=== PATIENT | female | born 1935 | race Caucasian/White ===

== ENCOUNTER → 2017-10-03 14:24 | Outpatient (CLI) | payer MEDICARE, OTHER, SELFPAY ==
[2017-10-03 16:12] LABS: Absolute Lymphocyte Count 1.16 X10^3/ul (0.83-4.51); Absolute Neutrophil Count 3.9 X10^3/uL (2.0-7.7); Basophil# 0.07 X10^3/uL; Basophil% 1.2 % (0-1); Eosinophil# 0.34 X10^3/uL; Eosinophils% 5.6 % (0-5); Hematocrit 42.1 % (37-47); Hemoglobin 13.7 g/dl (12.0-15.0); Lymphocyte # 1.16 X10^3/ul (4.0); Lymphocyte % 19.1 % (19-41); Mean Corp Hgb Conc 32.5 g/gl (32-36); Mean Corpuscular Hgb 31.3 pg (27.0-32.0); Mean Corpuscular Volume 96.1 fL (81-99); Monocyte# 0.58 X10^3/uL; Monocyte% 9.6 % (0-10); Neutrophil # 3.89 X10^3/uL (2.7-7.7); Neutrophil % 64.2 % (47-70); Platelet Count 166 K/mm3 (150-450); RBC Distribution Width CV 12.7 % (11.6-14.6); RBC Distribution Width SD 43.8 fl (35.1-43.9); Red Blood Count 4.38 M/mm3 (4.2-5.4); White Blood Count 6.1 K/mm3 (4.4-11.0)
[2017-10-03 16:18] LABS: POSITIVE COUNT NO; POSITIVE DIFFERENTIAL NO; POSITIVE MORPHOLOGY NO
[2017-10-03 16:37] LABS: Vitamin D,25 Hydroxy 34.9 ng/mL (19.95-100.01)
[2017-10-03 16:38] LABS: AST(SGOT) 24 U/L (15-37); Alanine Aminotransfer ALT/SGPT 22 U/L (13-56); Albumin, Serum 3.7 g/dL (3.2-5.0); Alkaline Phosphatase 54 U/L (45-117); Anion Gap 7 (5-15); BUN 23 mg/dL (7-18); BUN/Creat Ratio 26.3 RATIO (10-20); Calcium,Total 9.2 mg/dL (8.5-10.1); Chloride 103 mmol/L (98-107); Creatinine, Serum 0.87 mg/dL (0.55-1.02); EST Glomerular Filtration Rate 66 mL/min (>60); Est Glom Filt Rate - Afr Amer 80 mL/min (>60); Globulin 3.8 g/dL (2.2-4.2); Glucose 85 mg/dL (70-110); Protein, Total 7.5 g/dL (6.4-8.2); Sodium Level 141 mmol/L (136-145); Thyroid Stim Hormone (TSH) 2.36 uIU/mL (0.358-3.74)
== END ==
PROVIDERS: Family Provider Family Medicine Geriatric Medicine; PCP Family Medicine Geriatric Medicine; Visit Provider Family Medicine Geriatric Medicine
DX: I10 Essential (primary) hypertension (principal); E55.9 Vitamin D deficiency, unspecified
CPT/HCPCS: 36415; 80053; 82306; 84443; 85025

== ENCOUNTER 2017-10-09 12:25 | Emergency (ER) | payer MEDICARE, OTHER, SELFPAY ==
[2017-10-09 12:27] VITALS: BP 137/79; PULSE 72; RESP 16; TEMP 37.2; O2SAT 99; BMI 21.2
--- NOTE | 2017-10-09 12:43 | ED.DCSUM_ITS ---
- ER Visit Summary Date of Service: 10/09/17 Chief Complaint: Facial swelling History of Present Illness: The patient is a 82 F who has been using bacitracin on her face for a small lesion on the side of her nose. Patient noted redness and increased swelling to the area just beneath her eyes. This started 3 days ago. Patient denies any shortness of breath or wheezing. She denies any tongue edema or throat tightness. Physical Examination: Vital signs are unremarkable. Head neck examination was periorbital erythema with minimal edema. There is no conjunctival injection. There is no eyelid edema. There is a healing wound on the left lateral portion of the nasal bridge. There is no sign of cellulitis. No tongue edema is noted. Heart is regular rate and rhythm. Lungs are clear with good air movement. Test Results: [] Emergency Department Course and Treatment: Patient will be given a 4 day course of oral prednisone. She is instructed to use neutral soap and water to clean her skin. She is to stop bacitracin. Treatment Plan: [] Disposition: Discharge Impression: Local skin reaction to bacitracin This note was generated with [employer] dictation software. It may contain incorrect words, spelling, and punctuation that were not noted in review of the chart prior to signing ED Disposition - Plan for ED Patient: Chief Complaint: Allergic Reaction Referrals: Rod Ochoa Chi, MD [Primary Care Provider] -
--- NOTE | 2017-10-09 12:43 | ED.DEP ---
ED Disposition - Plan for ED Patient: Disposition: Home or Assisted Living Chief Complaint: Allergic Reaction Instructions: ED Allergic Reaction Local Other Prescriptions: Prednisone [Deltasone] 40 mg PO DAILY #6 tablet Referrals: Rod Ochoa Chi, MD [Primary Care Provider] - 1 Week if not improving
[2017-10-09 12:47] VITALS: BP 128/80; PULSE 80; RESP 14; O2SAT 98
== END 2017-10-09 13:08 | disposition home or self-care (01) ==
LOC: ED 12:55
PROVIDERS: Emergency Provider Emergency Medicine; Family Provider Family Medicine Geriatric Medicine; PCP Family Medicine Geriatric Medicine
DX: R22.0 Localized swelling, mass and lump, head (principal); T49.0X5A Adverse effect of local antifungal, anti-infective and anti-inflammatory drugs, initial encounter; J45.909 Unspecified asthma, uncomplicated; I10 Essential (primary) hypertension; E78.00 Pure hypercholesterolemia, unspecified; I48.91 Unspecified atrial fibrillation; Z79.51 Long term (current) use of inhaled steroids; Z79.899 Other long term (current) drug therapy; Y92.89 Other specified places as the place of occurrence of the external cause
CPT/HCPCS: 99283

== ENCOUNTER → 2017-11-01 13:52 | Outpatient (CLI) | payer MEDICARE, OTHER, SELFPAY ==
[2017-10-09 12:27] VITALS: BMI 21.2
[2017-10-09 12:47] VITALS: BP 128/80
--- NOTE | 2017-11-01 13:54 | HPBI_ITS ---
MAMMOGRAPHY - BILATERAL SCREENING REASON FOR EXAM: Female, 82 years old. Routine annual screening examination. PERTINENT HISTORY: Grandmother with breast cancer. TECHNIQUE: Digital bilateral breast erik (3D mammographic acquisition) in the CC and MLO projections. 2-D mediolateral oblique (MLO) and craniocaudad (CC) views of both breasts were obtained. CAD: Full Field Digital Mammography with Computer Added Detection was performed. COMPARISON: Comparison is made with prior examination dated October 01, 2016 and September 29, 2015. FINDINGS: Breast Composition: The breasts are heterogeneously dense, which may obscure small masses. There are no dominant masses or suspicious calcifications. Stable bilateral secretory and arterial calcifications. The battery pack of a pacemaker is seen in the left axillary region. No other significant abnormalities are identified. There has been no significant change since the prior study. HPBI/SCREENING MAMM (CAD), BILAT IMPRESSION: Stable bilateral screening mammogram. Yearly follow-up mammogram recommended. (A) ASSESSMENT CATEGORY: BIRADS Category 2: Benign. A letter regarding these results will be sent to the patient by the facility within 30 days. Approximately 10% of breast cancers are not detected by mammography. A normal mammogram should not delay biopsy of a clinically suspicious abnormality. [id number] Electronically Signed: Reji Ramírez MD at 15:24 EST Tel [phone], Service support ,
== END ==
PROVIDERS: Family Provider Family Medicine Geriatric Medicine; PCP Family Medicine Geriatric Medicine; Visit Provider Family Medicine Geriatric Medicine
DX: Z12.31 Encounter for screening mammogram for malignant neoplasm of breast (principal)
CPT/HCPCS: 77063; 77067

== ENCOUNTER 2018-01-08 16:37 | Emergency (ER) | payer MEDICARE, OTHER, SELFPAY ==
[2018-01-08 16:38] VITALS: BP 138/103; PULSE 70; RESP 16; TEMP 36.4; O2SAT 98; BMI 21.2
--- NOTE | 2018-01-08 16:58 | ED.DCSUM_ITS ---
- ER Visit Summary Date of Service: 01/08/18 Chief Complaint: Left elbow laceration History of Present Illness: The patient is a 82 F presenting with left elbow laceration. Patient states she was sitting down in an auditorium chair and she hit her arm on the armrest and sustained a laceration to her left elbow. No other injuries. Her tetanus is up-to-date. She is on Eliquis. Physical Examination: Vitals are stable. Patient is afebrile. Alert no acute distress. HEENT exam is unremarkable. Neck is supple. Lungs are clear and equal bilaterally. Heart is regular rate and rhythm. Extremities left elbow 5 cm laceration. No bony tenderness. AFROM. NVID Skin is warm and dry. No focal neurologic deficit. Remainder of exam is unremarkable. Emergency Department Course and Treatment: Wound was irrigated. Anesthetized with lidocaine. 5, 5-0 simple sutures were placed. Patient tolerated this well. Advised wound care instructions. Advised to follow-up with primary care physician. Advised return ED if worsening complaints. Disposition: Discharged home Impression: Left elbow laceration, laceration repair This note was generated with [employer] dictation software. It may contain incorrect words, spelling, and punctuation that were not noted in review of the chart prior to signing ED Disposition - Plan for ED Patient: Chief Complaint: Laceration Referrals: Rod Ochoa Chi, MD [Primary Care Provider] -
--- NOTE | 2018-01-08 17:17 | ED.DEP ---
ED Disposition - Plan for ED Patient: Chief Complaint: Laceration Instructions: ED Laceration All Referrals: Rod Ochoa Chi, MD [Primary Care Provider] -
== END 2018-01-08 17:45 | disposition home or self-care (01) ==
PROVIDERS: Emergency Provider Emergency Medicine; Family Provider Family Medicine Geriatric Medicine; PCP Family Medicine Geriatric Medicine
DX: S51.012A Laceration without foreign body of left elbow, initial encounter (principal); J45.909 Unspecified asthma, uncomplicated; I10 Essential (primary) hypertension; E78.00 Pure hypercholesterolemia, unspecified; I48.91 Unspecified atrial fibrillation; Z23 Encounter for immunization; Z79.02 Long term (current) use of antithrombotics/antiplatelets; Z79.51 Long term (current) use of inhaled steroids; Z79.899 Other long term (current) drug therapy; W26.8XXA Contact with other sharp object(s), not elsewhere classified, initial encounter; Y93.89 Activity, other specified; Y92.89 Other specified places as the place of occurrence of the external cause; Y99.8 Other external cause status
CPT/HCPCS: 12002; 99284

== ENCOUNTER → 2018-01-11 15:30 | Outpatient (CLI) | payer MEDICARE, OTHER, SELFPAY ==
--- NOTE | 2018-01-11 15:43 | RAD_ITS ---
STUDY: X-RAY CHEST REASON FOR EXAM: Female, 82 years old. Shortness of breath TECHNIQUE: Frontal and lateral views of the chest COMPARISON: 04/22/2015 FINDINGS: The lungs are clear. There are no pleural effusions. There is no pneumothorax. The heart is enlarged, but stable. Again noted is a pacemaker. The visualized osseous structures are within normal limits. RAD/Chest PA and Lateral IMPRESSION: No acute thoracic pathology. Electronically Signed: John Rae, at 16:32 EDT Tel , Service support ,
[2018-01-11 16:59] LABS: Absolute Lymphocyte Count 1.46 X10^3/ul (0.83-4.51); Basophil# 0.06 X10^3/uL; Basophil% 0.8 % (0-1); Eosinophil# 0.46 X10^3/uL; Eosinophils% 5.9 % (0-5); Hematocrit 39.7 % (37-47); Hemoglobin 12.9 g/dl (12.0-15.0); Lymphocyte # 1.46 X10^3/ul (4.0); Lymphocyte % 18.6 % (19-41); Mean Corp Hgb Conc 32.5 g/gl (32-36); Mean Corpuscular Hgb 30.5 pg (27.0-32.0); Mean Corpuscular Volume 93.9 fL (81-99); Monocyte# 0.86 X10^3/uL; Neutrophil # 4.98 X10^3/uL (2.7-7.7); Neutrophil % 63.6 % (47-70); Platelet Count 154 K/mm3 (150-450); RBC Distribution Width CV 12.4 % (11.6-14.6); RBC Distribution Width SD 41.8 fl (35.1-43.9); Red Blood Count 4.23 M/mm3 (4.2-5.4); White Blood Count 7.8 K/mm3 (4.4-11.0)
[2018-01-11 17:01] LABS: POSITIVE COUNT NO; POSITIVE DIFFERENTIAL NO; POSITIVE MORPHOLOGY NO
[2018-01-11 17:14] LABS: Anion Gap 6 (5-15); BUN 15 mg/dL (7-18); BUN/Creat Ratio 20.1 RATIO (10-20); Calcium,Total 9.4 mg/dL (8.5-10.1); Chloride 106 mmol/L (98-107); Creatinine, Serum 0.75 mg/dL (0.55-1.02); EST Glomerular Filtration Rate 79 mL/min (>60); Est Glom Filt Rate - Afr Amer 96 mL/min (>60); Glucose 92 mg/dL (74-106); Potassium 3.8 mmol/L (3.5-5.1); Sodium Level 142 mmol/L (136-145)
== END ==
LOC: POLAB3 15:31 → RAD 15:41
PROVIDERS: Family Provider Family Medicine Geriatric Medicine; PCP Family Medicine Geriatric Medicine; Visit Provider Family Medicine Geriatric Medicine
DX: R06.02 Shortness of breath (principal)
CPT/HCPCS: 36415; 71046; 80048; 83880; 85025

== ENCOUNTER → 2018-01-13 10:44 | Outpatient (CLI) | payer MEDICARE, OTHER, SELFPAY ==
--- NOTE | 2018-01-13 10:47 | ECHOD_ITS ---
Reason For Study: SOB Procedure This was a 2D Doppler, Color Flow transthoracic echocardiogram. The exam was of poor technical quality due to diminished acoustic windows. The study was technically difficult. Exam performed in department. Left Ventricle Normal LV size. Mild segmental systolic dysfunction (see wall motion). The estimated ejection fraction is 50 %. Infero-Basal: Hypokinetic. Mid-Inferior: Hypokinetic. Mid-inferoseptal : Hypokinetic. Mid-anteroseptal : Hypokinetic. Inferior [place] : Hypokinetic. Septal [place] : Hypokinetic. Right Ventricle Normal RV size. ICD or pacer leads identified within the right ventricle. Normal systolic function. Atria The left atrium is moderately enlarged. The right atrium is severely enlarged. ICD or pacer leads identified within the right atrium. No doppler evidence for ASD. Bubble contrast study negative for right to left interatrial shunt. Mitral Valve There is no mitral annular calcification. Normal mitral valve. Moderate (2+) mitral valve insufficiency. Tricuspid Valve Normal tricuspid valve. Moderate (2+) eccentric tricuspid valve insufficiency. Right ventricular systolic pressure estimated to be 38 mmHg. Aortic Valve Trisinus/trileaflet aortic valve. Mild diffuse aortic valve thickening. Mild focal aortic valve calcification. Mild (1+) aortic valve insufficiency. Pulmonic Valve The pulmonic valve is not well visualized. Mild (1+) pulmonic valve insufficiency. Great Vessels Normal sized aortic root. Pericardium/Pleural No pericardial effusion. Epicardial fat. Medication 22 gauge I.V. with prn adaptor inserted into right arm. Performed a rapid injection of agitated mix of 9 cc saline and 1cc air to assess for atrial septal defect. MMode/2D Measurements & Calculations LVIDd: 4.7 cm IVSd: 1.2 cm Ao root diam: 3.2 cm LVIDs: 4.1 cm LVPWd: 1.1 cm RVDd: 3.8 cm FS: 13.1 % LAV(MOD-bp): 90.2 ml LVAd ap4: 15.6 cm2 EDV(MOD-sp2): 64.1 ml LAV(MOD-bp) Indexed: 51.3 ml/m2 EDV(MOD-sp4): 43.2 ml EF(MOD-sp2): 44.4 % LAV(MOD-sp2): 76.5 ml EDV(sp4-el): 34.0 ml LAV(MOD-sp4): 99.0 ml LVAs ap4: 11.0 cm2 ESV(MOD-sp4): 28.3 ml ESV(sp4-el): 18.4 ml EF(MOD-sp4): 34.6 % EF(sp4-el): 45.7 % SV(MOD-sp4): 15.0 ml SV(MOD-sp2): 28.5 ml SV(sp4-el): 15.5 ml LA A4 area: 28.5 cm2 RA A4 area: 35.1 cm2 Doppler Measurements & Calculations MV E max joey: 86.6 cm/sec Lat Peak E' Joey: 15.1 cm/sec Med Peak E' Joey: 7.4 cm/sec E/E' lat: 5.7 E/E' med: 11.7 Ao V2 max: 93.7 cm/sec AI max joey: 500.1 cm/sec LV V1 max: 79.2 cm/sec Ao max P.5 mmHg AI max P.1 mmHg LV V1 max P.5 mmHg AI dec slope: 238.1 cm/sec2 AI P1/2t: 615.1 msec PA V2 max: 59.8 cm/sec PI end-d joey: 155.6 cm/sec TR max joey: 295.9 cm/sec TR max P.1 mmHg Interpretation Summary The study was technically difficult. Mild segmental systolic dysfunction (see wall motion). The estimated ejection fraction is 50 %. The left atrium is moderately enlarged. The right atrium is severely enlarged. Moderate (2+) mitral valve insufficiency. Moderate (2+) eccentric tricuspid valve insufficiency. Mild diffuse aortic valve thickening. Mild focal aortic valve calcification. Mild (1+) aortic valve insufficiency. Mild (1+) pulmonic valve insufficiency. Epicardial fat. Right ventricular systolic pressure estimated to be 38 mmHg. Bubble contrast study negative for right to left interatrial shunt. ICD or pacer leads identified within the right atrium ICD or pacer leads identified within the right ventricle. Ordering Physician: Rod Ochoa Referring Physician: Curtis Ordonez MD Performed By: Savannah Corral, ORTIZCS, RVT
== END ==
PROVIDERS: Family Provider Family Medicine Geriatric Medicine; PCP Family Medicine Geriatric Medicine; Visit Provider Family Medicine Geriatric Medicine
DX: R06.02 Shortness of breath (principal)
CPT/HCPCS: 93306; A4216

== ENCOUNTER 2018-01-14 11:12 | Emergency (ER) | payer MEDICARE, OTHER, SELFPAY ==
[2018-01-14 11:13] VITALS: BP 154/93; PULSE 71; RESP 16; TEMP 36.7; O2SAT 99; BMI 22.5
--- NOTE | 2018-01-14 11:41 | ED.RN ---
5 sutures removed from left elbow skin tear per md verbal order.
[2018-01-14] MEDS: HYDROcodone Bitartrate/Apap 5/325 Tablet PO (11:46)
--- NOTE | 2018-01-14 11:50 | RAD_ITS ---
STUDY: X-RAY - LEFT ELBOW REASON FOR EXAM: Female, 82 years old. INJURY, PAIN. TECHNIQUE: 3 view(s) of the elbow. COMPARISON: None. FINDINGS: There is demineralization of the visualized humerus, radius and ulna. There is degenerative arthrosis of the radiocapitellar and ulnotrochlear articulations. The soft tissue structures are unremarkable. RAD/Elbow min 3 Views IMPRESSION: No fracture or dislocation Electronically Signed: Cristina Spencer MD at 12:11 EDT Tel , Service support ,
--- NOTE | 2018-01-14 11:53 | ED.VISSUMM ---
- ER Visit Summary Date of Service: 01/14/18 Chief Complaint: [] Elbow pain recent laceration left elbow History of Present Illness: The patient is a 82 F [] week ago the patient struck her elbow across the edge of a chair she suffered laceration was seen in the emergency room and had it sutured and repaired she has been doing fine developed some slight redness over the skin margins was put on antibiotics a few days ago by her physician. Yesterday she was out digging in the yard and then today she noticed that the elbow is just sore with pain with any type of movement but no direct trauma no paresthesias she does have a history of diffuse arthritis, no warmth no swelling no complaints in any other joints she was feeling fine before she started digging in the garden Physical Examination: [] Elbow there is some very minimal redness to the wound margins, the there is no warmth there is no drainage she has difficulty with full flexion extension she is able to pronate and supinate her hand function is normal radial pulses normal there is no fullness into the elbow joint region of any kind her pain is restricted over the incision, the sutures are dry and intact in the sutured area appears to be healed Test Results: [] Emergency Department Course and Treatment: [] Rays obtained that shows nothing acute she was treated with [place] I explained all the above to her I explained is no signs of infection no signs of joint infection or joint involvement no signs of fracture, I have cautioned her not to take in the garden she will be discharged on [place] secondary to her use of Eliquis for A. fib ice to the area and she will follow-up with orthopedic surgeons on Tuesday and return for change in symptoms and we have asked her to continue to try to arrange the elbow, we did discuss the concept of a joint process a such as infection nd how this is not apparent on physical exam today,she understands the follow-up Treatment Plan: [] Disposition: [] Home stable Impression: [] Healed left elbow laceration left elbow pain This note was generated with [employer] dictation software. It may contain incorrect words, spelling, and punctuation that were not noted in review of the chart prior to signing ED Disposition - Plan for ED Patient: Chief Complaint: Upper Extremity Injury Referrals: Rod Ochoa Chi, MD [Primary Care Provider] -
--- NOTE | 2018-01-14 11:56 | ED.DEP ---
ED Disposition - Plan for ED Patient: Chief Complaint: Upper Extremity Injury Instructions: ED Sprain Elbow Referrals: Rod Ochoa Chi, MD [Primary Care Provider] - Additional Instructions: Ice elevation and local wound care make sure you follow-up with your orthopedic doctors in a few days no digging or heavy activity
--- NOTE | 2018-01-14 12:29 | DCINST.ED_ITS ---
ED Disposition - Plan for ED Patient: Chief Complaint: Upper Extremity Injury Instructions: ED Sprain Elbow Prescriptions: Hydrocodone Bitart/Apap 5-325 [[place] 5MG-325MG] 1 tablet PO Q6H PRN PRN 2 Days # 12 tablet PRN Reason: Pain Referrals: Rod Ochoa Chi, MD [Primary Care Provider] - Additional Instructions: Ice elevation and local wound care make sure you follow-up with your orthopedic doctors in a few days no digging or heavy activity
[2018-01-14 13:04] VITALS: PULSE 70; RESP 16; O2SAT 98
== END 2018-01-14 13:05 | disposition home or self-care (01) ==
LOC: ED 11:40
PROVIDERS: Emergency Provider Emergency Medicine; Family Provider Family Medicine Geriatric Medicine; PCP Family Medicine Geriatric Medicine
DX: M25.522 Pain in left elbow (principal); M19.90 Unspecified osteoarthritis, unspecified site; I48.91 Unspecified atrial fibrillation; Z79.02 Long term (current) use of antithrombotics/antiplatelets; Z79.51 Long term (current) use of inhaled steroids; Z79.899 Other long term (current) drug therapy
CPT/HCPCS: 73080; 99283

== ENCOUNTER → 2018-01-27 07:00 | Outpatient (CLI) | payer MEDICARE, OTHER, SELFPAY ==
--- NOTE | 2018-01-27 12:49 | STRESSREP ---
Stress Test Report Date: 01/27/2018 Procedure: Pharmacologic stress nuclear imaging study Indications: Dyspnea Consent: Per the patient Procedure: The patient underwent pharmacologic (Regadenoson) evaluation with a peak heart rate of 106 beats per minute (76 predicted maximal heart rate) and a peak blood pressure of 113/69 mmHg. The baseline ECG demonstrated electronic ventricular paced rhythm. The peak pharmacologic ECG demonstrated an electronic ventricular paced rhythm. There were no cardiac dysrhythmias pretest, during pharmacologic infusion, or recovery. There was no complaint of chest discomfort during pharmacologic infusion or recovery. The examination was discontinued secondary to completion of protocol. Impression: 1. Pharmacologic (Regadenoson) evaluation 2. Peak pharmacologic ECG with a continued electronic ventricular paced rhythm. 3. There were no cardiac dysrhythmias pretest, during pharmacologic infusion, or recovery 4. Nuclear images pending Myocardial perfusion imaging study: Technique: The patient was injected with 11.8 millicuries of technetium 99m Cardiolite and subsequently rest SPECT Cardiolite nuclear imaging was obtained in the horizontal long, vertical long, and short axis views. The patient underwent pharmacologic (Regadenoson) evaluation with a peak heart rate of 106 beats per minute (76 % percent predicted maximal heart rate) and a peak blood pressure of 113/69 mmHg. The patient was injected with 34.3 millicuries of technetium 99m Cardiolite and subsequently stress SPECT Cardiolite nuclear imaging was obtained in the horizontal long, vertical long, and short axis views. A gated Cardiolite study at peak stress was obtained. Interpretation: Rest and stress SPECT Cardiolite nuclear imaging status post realignment, normalization, and attenuation correction demonstrate relative uniform tracer uptake and myocardial perfusion appearing within normal limits. There is end systolic thickening and brightening. The gated Cardiolite study demonstrates myocardial thickening and inward wall motion. The reported LVEF is 74 %. Impression: 1. Rest and stress SPECT Cardiolite nuclear imaging demonstrate relative uniform tracer uptake and myocardial perfusion appearing within normal limits. 2. The gated Cardiolite study reports an LVEF of 74 %. This note was generated with [employer] software. It may contain incorrect words, spelling, and punctuation that were not noted in checking the note before signing.
== END ==
PROVIDERS: Family Provider Family Medicine Geriatric Medicine; PCP Family Medicine Geriatric Medicine; Visit Provider Physician Assistant Medical
DX: R06.09 Other forms of dyspnea (principal); I10 Essential (primary) hypertension; I48.91 Unspecified atrial fibrillation; I34.0 Nonrheumatic mitral (valve) insufficiency; E78.2 Mixed hyperlipidemia; R93.8 Abnormal findings on diagnostic imaging of other specified body structures; Z95.0 Presence of cardiac pacemaker
CPT/HCPCS: 78452; 93017; A9500; A4216; J2785

== ENCOUNTER → 2018-02-13 09:47 | Day surgery (SDC) | payer MEDICARE, OTHER, SELFPAY ==
--- NOTE | 2018-02-09 11:47 | RAD_ITS ---
STUDY: X-RAY CHEST REASON FOR EXAM: Female, 82 years old. Preoperative evaluation for pacemaker change. TECHNIQUE: Frontal and lateral views of the chest. COMPARISON: January 11, 2018 FINDINGS: There is stable mild hyperexpansion. There is no demonstrated pleural abnormality. There is cardiomegaly with a single lead cardiac pacer unchanged. Normal mediastinum and augie. Normal visualized pulmonary arteries. There is atherosclerotic calcification of the aortic arch with tortuosity. Normal visualized thoracic spine. Normal visualized ribs, clavicles, and shoulders. There is no demonstrated abnormality of the visualized soft tissue structures of the upper abdomen. RAD/Chest PA and Lateral IMPRESSION: Stable cardiomegaly with mild hyperexpansion. No acute pathology. Electronically Signed: Richi Garner MD at 11:26 EDT , Service support ,
[2018-02-09 12:21] LABS: Bacteria 0 SEEN /hpf (None Seen); Mucous, Urine 0 SEEN /hpf (<or=2+); Red Blood Cells-Urine 0 SEEN /hpf (0-5); White Blood Cells 0 SEEN /hpf (0-5)
--- NOTE | 2018-02-13 09:47 | DT_ITS ---
This patient was seen during an EMR downtime February 06, 2018 - February 13, 2018. This patient may have a combination of paper and electronic documentation or all paper documentation. All documentation is viewable within the e-chart portion of [facility] for each patient visit.
--- NOTE | 2018-02-13 13:04 | CL.IE_ITS ---
Patient: MARISA SANTIAGO Study Date: 02/13/2018 Performing: Fei Rivera MD : 1935 Age: 82 Gender: female PROCEDURES PERFORMED [id number] REMOVAL+REPLACEMENT PACER-SINGLE LEAD INDICATIONS End-of-life replacement indicator PROCEDURE DETAILS The patient was brought to the Catheterization Lab in the postabsorptive nonsedated state. Informed consent was obtained prior to the procedure. Local anesthetic was given subcutaneously to the left up per chest area with Lidocaine 2%. Incision was made to the left upper chest. PPM generator was remove d. Device pocket was irrigated with antibiotic. PPM generator was attached to the lead(s) and inserte d into the pocket. PPM generator was then interrogated by the perl programmer. Subcutaneous closure was co mpleted with 3-0 Vicryl. Skin closure was completed with 4-0 Vicryl. The patient tolerated the proce dure well. Estimated Blood Loss: 10 ml's IMPLANTED / EX-PLANTED DEVICES IMPLANTED DEVICE(S): PPM Generator - [employer]: [employer], Model # [id number] , Serial # [id number] DEVICE PARAMETERS DEVICE PARAMETERS: Mode- VVIR Lower rate- 70 Upper rate- 120 CONCLUSIONS / RECOMMENDATIONS Device Conclusions: Successful implantation of a single chamber pacemaker battery change and replacem ent Device Recommendations: Follow up with Primary Care Physician PROCEDURE MEDICATIONS Fentanyl 50 mcg IV Versed 1 mg IV Oxygen: 2 L/min via nasal cannula Antibiotic given in appropriate timeframe. Ancef 2 Gm IV @ 02/13/2018 11:45:33 Signed By Fei Rivera MD On 02/13/2018 13:03:46 Fei Rivera MD
[2018-02-14 04:11] LABS: Color, Urine Yellow (Yellow); Glucose, Dipstick NEGATIVE (Normal); Ketone-Dipstick Negative (Negative); Leukocyte Esterase-Dipstick Negative /ul (Negative); Nitrite-Dipstick Negative (Negative); Occult Blood-Urine 10 /ul (Negative); Protein-Dipstick Negative (Negative); Squamous Epithelial Cells - UA 0-5 SEEN /hpf (5-10); Urine Bilirubin Dipstick Negative (Negative); Urine Clarity Clear (Clear); Urine Urobilinogen Normal (Normal)
[2018-02-14 04:13] LABS: Anion Gap 7 (5-15); BUN 28 mg/dL (7-18); BUN/Creat Ratio 32.9 RATIO (10-20); Calcium,Total 8.9 mg/dL (8.5-10.1); Chloride 104 mmol/L (98-107); Creatinine, Serum 0.85 mg/dL (0.55-1.02); EST Glomerular Filtration Rate 68 mL/min (>60); Est Glom Filt Rate - Afr Amer 82 mL/min (>60); Glucose 78 mg/dL (74-106); Potassium 4.4 mmol/L (3.5-5.1); Sodium Level 142 mmol/L (136-145)
[2018-02-14 04:30] LABS: Prothrombin Time (Protime)PT. 13.5 SECONDS (11.7-14.9); Red Blood Count 6.21 M/mm3 (4.2-5.4); White Blood Count 7.9 K/mm3 (4.4-11.0)
[2018-02-14 04:31] LABS: Hematocrit 57.7 % (37-47); Hemoglobin 18.5 g/dl (12.0-15.0); Mean Corp Hgb Conc 32.1 g/gl (32-36); Mean Corpuscular Hgb 29.8 pg (27.0-32.0); Mean Corpuscular Volume 92.9 fL (81-99); Mean Platelet Vol. 11.3 fl (6.2-12.0); Platelet Count 135 K/mm3 (150-450); RBC Distribution Width CV 13.1 % (11.6-14.6); Scan Indicated on CBC? Y/N NO
== END ==
PROVIDERS: Internal Medicine Cardiovascular Disease; Family Provider Family Medicine Geriatric Medicine; PCP Family Medicine Geriatric Medicine; Visit Provider Internal Medicine Cardiovascular Disease
DX: I49.5 Sick sinus syndrome (principal); Z95.0 Presence of cardiac pacemaker; I44.2 Atrioventricular block, complete; Z86.79 Personal history of other diseases of the circulatory system
CPT/HCPCS: 33227; 36415; 71046; 80048; 81001; 85027; 85610; 99152; 99153; J7040; J7050

== ENCOUNTER → 2018-04-11 14:53 | Outpatient (CLI) | payer MEDICARE, OTHER, SELFPAY ==
--- NOTE | 2018-04-11 15:00 | RAD_ITS ---
STUDY: X-RAY - ABDOMEN/PELVIS REASON FOR EXAM: Female, 82 years old. Diarrhea TECHNIQUE: AP supine and upright views of the abdomen and pelvis. COMPARISON: 01/11/2017 FINDINGS: Normal visualized lung bases. There is partial visualization of a cardiac pacemaker lead. There is an unremarkable bowel gas pattern. There is no demonstrated free abdominal air. The visualized liver, spleen and kidneys are grossly normal in size and morphology. Normal soft tissue structures. There are diffuse degenerative changes of the visualized lumbar spine. Orthopedic hardware is partially visualized within both hips. RAD/Abd Inc Decub and/or Erect IMPRESSION: Nonobstructive abdominal bowel gas pattern. Electronically Signed: Todd Schultz DO at 15:24 EDT Tel , Service support ,
== END ==
PROVIDERS: Family Provider Family Medicine Geriatric Medicine; PCP Family Medicine Geriatric Medicine; Visit Provider Family Medicine Geriatric Medicine
DX: R19.7 Diarrhea, unspecified (principal)
CPT/HCPCS: 74019

== ENCOUNTER → 2018-04-25 09:06 | Outpatient (CLI) | payer MEDICARE, OTHER, SELFPAY | PROVIDERS: Family Provider Family Medicine Geriatric Medicine; PCP Family Medicine Geriatric Medicine; Visit Provider Orthopaedic Surgery | DX: M25.511 Pain in right shoulder (principal); M25.512 Pain in left shoulder | CPT/HCPCS: 73030 ==

== ENCOUNTER → 2018-10-05 11:59 | Outpatient (CLI) | payer MEDICARE, OTHER, SELFPAY ==
[2018-10-05 11:59] VITALS: BMI 21.2
--- NOTE | 2018-10-05 12:26 | RAD_ITS ---
STUDY: X-RAY - ABDOMEN/PELVIS REASON FOR EXAM: Female, 83 years old. Impaction of colon TECHNIQUE: AP supine and upright views of the abdomen and pelvis. COMPARISON: 04/11/2018 FINDINGS: Stable cardiomegaly and pacer placement. There is an unremarkable bowel gas pattern. There is no demonstrated free abdominal air. The visualized liver, spleen and kidneys are grossly normal in size and morphology. Normal soft tissue structures. Stable degenerative changes, osteopenia, postsurgical changes and mild levoscoliosis. RAD/Abd Decub and/or Erect(Portabl IMPRESSION: There is no obstruction or perforation. No significant amount of retained fecal material. Other nonacute findings as outlined above. Electronically Signed: Ruth Mccullough MD at 6:33 EST , Service support ,
[2018-10-05 12:41] LABS: Absolute Neutrophil Count 3.1 X10^3/uL (2.0-7.7); Basophil# 0.09 X10^3/uL; Basophil% 1.6 % (0-1); Eosinophil# 0.53 X10^3/uL; Eosinophils% 9.4 % (0-5); Hematocrit 40.4 % (37-47); Hemoglobin 12.8 g/dl (12.0-15.0); Lymphocyte % 21.4 % (19-41); Mean Corp Hgb Conc 31.7 g/gl (32-36); Mean Corpuscular Hgb 31.3 pg (27.0-32.0); Mean Corpuscular Volume 98.8 fL (81-99); Mean Platelet Vol. 11.3 fl (6.2-12.0); Monocyte# 0.63 X10^3/uL; Monocyte% 11.2 % (0-10); Neutrophil # 3.14 X10^3/uL (2.7-7.7); Neutrophil % 55.9 % (47-70); Platelet Count 200 K/mm3 (150-450); RBC Distribution Width CV 12.5 % (11.6-14.6); RBC Distribution Width SD 45.1 fl (35.1-43.9); Red Blood Count 4.09 M/mm3 (4.2-5.4); White Blood Count 5.6 K/mm3 (4.4-11.0)
[2018-10-05 12:42] LABS: POSITIVE COUNT NO; POSITIVE DIFFERENTIAL NO; POSITIVE MORPHOLOGY NO
[2018-10-05 13:02] LABS: ALB/GLOB Ratio 1.1 RATIO (0.9-2.4); AST(SGOT) 20 U/L (15-37); Alanine Aminotransfer ALT/SGPT 19 U/L (13-56); Albumin, Serum 3.6 g/dL (3.2-5.0); Alkaline Phosphatase 54 U/L (45-117); Anion Gap 6 (5-15); BUN 17 mg/dL (7-18); BUN/Creat Ratio 16.7 RATIO (10-20); Calcium,Total 8.9 mg/dL (8.5-10.1); Chloride 106 mmol/L (98-107); Creatinine, Serum 1.02 mg/dL (0.55-1.02); EST Glomerular Filtration Rate 55 mL/min (>60); Est Glom Filt Rate - Afr Amer 67 mL/min (>60); Globulin 3.4 g/dL (2.2-4.2); Glucose 85 mg/dL (74-106); Potassium 4.2 mmol/L (3.5-5.1); Sodium Level 141 mmol/L (136-145)
== END ==
LOC: POLAB3 12:08 → RAD 12:23
PROVIDERS: Family Provider Family Medicine Geriatric Medicine; PCP Family Medicine Geriatric Medicine; Visit Provider Family Medicine Geriatric Medicine
DX: I10 Essential (primary) hypertension (principal); E55.9 Vitamin D deficiency, unspecified; K56.41 Fecal impaction
CPT/HCPCS: 36415; 74019; 80053; 82306; 84443; 85025

== ENCOUNTER → 2018-10-10 14:43 | Outpatient (CLI) | payer MEDICARE, OTHER, SELFPAY ==
[2018-10-05 11:59] VITALS: BMI 21.2
[2018-10-10 15:55] LABS: Absolute Lymphocyte Count 1.32 X10^3/ul (0.83-4.51); Absolute Neutrophil Count 2.9 X10^3/uL (2.0-7.7); Basophil# 0.05 X10^3/uL; Eosinophil# 0.37 X10^3/uL; Eosinophils% 7.1 % (0-5); Hematocrit 37.6 % (37-47); Hemoglobin 11.9 g/dl (12.0-15.0); Lymphocyte # 1.32 X10^3/ul (4.0); Lymphocyte % 25.2 % (19-41); Mean Corp Hgb Conc 31.6 g/gl (32-36); Mean Corpuscular Hgb 31.2 pg (27.0-32.0); Mean Corpuscular Volume 98.4 fL (81-99); Mean Platelet Vol. 11.5 fl (6.2-12.0); Monocyte# 0.58 X10^3/uL; Monocyte% 11.1 % (0-10); Neutrophil # 2.91 X10^3/uL (2.7-7.7); Neutrophil % 55.4 % (47-70); Platelet Count 179 K/mm3 (150-450); RBC Distribution Width CV 12.1 % (11.6-14.6); RBC Distribution Width SD 42.1 fl (35.1-43.9); Red Blood Count 3.82 M/mm3 (4.2-5.4); White Blood Count 5.2 K/mm3 (4.4-11.0)
[2018-10-10 16:14] LABS: POSITIVE COUNT NO; POSITIVE DIFFERENTIAL NO; POSITIVE MORPHOLOGY NO
== END ==
PROVIDERS: Family Provider Family Medicine Geriatric Medicine; PCP Family Medicine Geriatric Medicine; Visit Provider Family Medicine Geriatric Medicine
DX: D64.9 Anemia, unspecified (principal)
CPT/HCPCS: 36415; 85025

== ENCOUNTER → 2018-10-11 13:01 | Outpatient (CLI) | payer MEDICARE, OTHER, SELFPAY ==
[2018-10-05 11:59] VITALS: BMI 21.2
== END ==
PROVIDERS: Family Provider Family Medicine Geriatric Medicine; PCP Family Medicine Geriatric Medicine; Referring Provider Family Medicine Geriatric Medicine; Visit Provider Family Medicine Geriatric Medicine
DX: R19.7 Diarrhea, unspecified (principal)
CPT/HCPCS: 82274; 83630; 87177; 87209; 87493; 87506

== ENCOUNTER → 2018-10-16 13:35 | Outpatient (CLI) | payer MEDICARE, OTHER, SELFPAY ==
[2018-10-05 11:59] VITALS: BMI 21.2
--- NOTE | 2018-10-16 13:37 | RAD_ITS ---
STUDY: X-RAY - LEFT HAND REASON FOR EXAM: Female, 83 years old. Pain TECHNIQUE: 3 view(s) of the hand. COMPARISON: 07/27/2016 FINDINGS: There is no evidence of fracture or dislocation. There are stable degenerative changes. Again noted is osteopenia. There are no radiodense foreign bodies. RAD/Hand Min 3 Views IMPRESSION: No fracture or dislocation. Osteopenia. Stable degenerative changes. Electronically Signed: John Rae, at 14:55 EST Tel , Service support ,
--- NOTE | 2018-10-16 13:37 | RAD_ITS ---
STUDY: X-RAY - RIGHT HAND REASON FOR EXAM: Female, 83 years old. Pain TECHNIQUE: 3 view(s) of the hand. COMPARISON: 07/27/2016 FINDINGS: There is no evidence of fracture or dislocation. There are stable degenerative changes. Again noted is osteopenia. There are no radiodense foreign bodies. RAD/Hand Min 3 Views IMPRESSION: No fracture or dislocation. Osteopenia. Stable degenerative changes. Electronically Signed: John Rae, at 14:58 EST Tel , Service support ,
== END ==
PROVIDERS: Family Provider Family Medicine Geriatric Medicine; PCP Family Medicine Geriatric Medicine; Referring Provider Orthopaedic Surgery; Visit Provider Orthopaedic Surgery
DX: M18.0 Bilateral primary osteoarthritis of first carpometacarpal joints (principal)
CPT/HCPCS: 73130

== ENCOUNTER 2018-11-08 10:04 | Emergency (ER) | payer MEDICARE, OTHER, SELFPAY ==
[2018-10-16 13:48] VITALS: BMI 21.2
[2018-11-08 10:06] VITALS: PULSE 70; RESP 16; TEMP 36.5; O2SAT 100; BMI 22.6
--- NOTE | 2018-11-08 10:10 | CT_ITS ---
STUDY: CT ABDOMEN AND PELVIS WITH CONTRAST REASON FOR EXAM: Female, 83 years old. Flulike symptoms. RADIATION DOSAGE (If Supplied By Facility): CTDIvol = ( 20.39 ) mGy, DLP = ( 490.39 ) mGycm TECHNIQUE: Transaxial images were obtained from the dome of the diaphragm to the symphysis pubis without oral contrast. Isovue 300 100 IV was administered. Sagittal and coronal images were reconstructed. Individualized dose optimization techniques were used for this CT. COMPARISON: None. FINDINGS: Increased markings along the posteromedial segments of both lower lobes suggestive of scarring. There is a 2.4 cm by 0.8 cm ill-defined soft tissue density in the peripheral lateral aspect of the right lower lobe. Follow-up is recommended. Pacemaker is seen within the left ventricle. Small pericardial effusion is seen along the inferior aspect of the pericardium. There is decreased attenuation of the liver consistent with steatosis. Normal gallbladder and extrahepatic biliary system. Normal spleen. Normal pancreas. There is a small, circumscribed, smooth, low attenuation left adrenal mass, consistent with an adrenal adenoma. Normal right adrenal gland. Normal right kidney. There is a 4.2 cm x 4.2 cm cyst in the upper medial aspect of the left kidney. Normal visualized stomach. Normal small intestine. There are multiple colonic diverticula consistent with diverticulosis. The appendix is visualized and appears normal. There is diffuse atherosclerotic calcification of the abdominal aorta and the major visceral branches, without a demonstrated aneurysm. Normal inferior vena cava. Normal retroperitoneum. Normal urinary bladder. Normal abdominal wall. The patient is status post bilateral hip replacement. This causes beam hardening artifact in the pelvis limiting the assessment. There are diffuse degenerative changes of the visualized lumbar spine. CT/Abdomen/Pelvis W IV Cont ONLY IMPRESSION: Sigmoid diverticulosis. Extensive atherosclerotic calcification of the abdominal aorta and major visceral branches. Fatty infiltration of the liver. Left renal cyst. Electronically Signed: Reji Ramírez, at 11:31 EST , Service support ,
[2018-11-08 10:26] LABS: Absolute Lymphocyte Count 0.94 X10^3/ul (0.83-4.51); Absolute Neutrophil Count 2.4 X10^3/uL (2.0-7.7); Basophil# 0.07 X10^3/uL; Basophil% 1.7 % (0-1); Eosinophil# 0.29 X10^3/uL; Eosinophils% 6.8 % (0-5); Hematocrit 38.9 % (37-47); Hemoglobin 12.7 g/dl (12.0-15.0); Lymphocyte # 0.94 X10^3/ul (4.0); Lymphocyte % 22.2 % (19-41); Mean Corp Hgb Conc 32.6 g/gl (32-36); Mean Corpuscular Hgb 31.3 pg (27.0-32.0); Mean Corpuscular Volume 95.8 fL (81-99); Mean Platelet Vol. 10.3 fl (6.2-12.0); Monocyte# 0.55 X10^3/uL; Neutrophil # 2.39 X10^3/uL (2.7-7.7); Neutrophil % 56.3 % (47-70); Platelet Count 165 K/mm3 (150-450); RBC Distribution Width CV 13.2 % (11.6-14.6); RBC Distribution Width SD 45.8 fl (35.1-43.9); Red Blood Count 4.06 M/mm3 (4.2-5.4); White Blood Count 4.2 K/mm3 (4.4-11.0)
[2018-11-08 10:27] LABS: POSITIVE COUNT NO; POSITIVE DIFFERENTIAL NO; POSITIVE MORPHOLOGY NO
[2018-11-08] MEDS: 0.9% Normal Saline 1,000 ML 1000 ML IV (10:32)
[2018-11-08] MEDS: Ondansetron 4 MG/2 ML Vial IV (10:32)
[2018-11-08 10:33] VITALS: BP 144/81; PULSE 70; RESP 18; O2SAT 99
[2018-11-08 10:40] LABS: ALB/GLOB Ratio 1.2 RATIO (0.9-2.4); AST(SGOT) 26 U/L (15-37); Alanine Aminotransfer ALT/SGPT 20 U/L (13-56); Albumin, Serum 3.7 g/dL (3.2-5.0); Alkaline Phosphatase 48 U/L (45-117); Anion Gap 11 (5-15); BUN 11 mg/dL (7-18); BUN/Creat Ratio 13.6 RATIO (10-20); Calcium,Total 9.1 mg/dL (8.5-10.1); Chloride 103 mmol/L (98-107); Creatinine, Serum 0.81 mg/dL (0.55-1.02); EST Glomerular Filtration Rate 72 mL/min (>60); Est Glom Filt Rate - Afr Amer 87 mL/min (>60); Estimated Creatinine Clearance 50.13 ml/min; Globulin 3.2 g/dL (2.2-4.2); Glucose 85 mg/dL (74-106); Lipase 110 U/L (73-393); Potassium 3.7 mmol/L (3.5-5.1); Protein, Total 6.9 g/dL (6.4-8.2); Sodium Level 140 mmol/L (136-145)
--- NOTE | 2018-11-08 11:45 | ED.DCSUM_ITS ---
- ER Visit Summary Date of Service: 11/08/18 Chief Complaint: Generalized weakness, nausea, vomiting, diarrhea History of Present Illness: The patient is a 83 F presents to the emergency department generalized weakness. Patient states that on Tuesday, she had some abdominal cramping. She states shortly thereafter, she had a few bouts of emesis. She is also begun to have loose watery diarrhea. She states the emesis stopped on Tuesday. She states her diarrhea stopped yesterday. She states today, she just felt generally weak. She feels like she did not have a lot of energy. 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 She is also on Eliquis for history of paroxysmal atrial fibrillation. She denies any fevers. She denies any chest pain. She denies any falls. Physical Examination: Vital signs reviewed General: Well-nourished, well-developed Head: Normocephalic, atraumatic Eyes: Pupils equal and reactive, extraocular muscles intact Neck, supple, no lymphadenopathy Heart: Regular rate and rhythm Respiratory: No distress, clear bilaterally Abdomen: Soft, nontender, nondistended, no peritoneal signs Back: Nontender Extremities: Nontender, no edema, no cords Skin: Normal color no rash Neuro: Alert and oriented, no focal or lateralizing deficits Test Results: [] Emergency Department Course and Treatment: The patient symptoms do seem viral in nature. She has no reproducible abdominal tenderness. IV was established. Patient was given IV fluids and Zofran. She did have marked improvement of her symptoms. Labs do show mild leukopenia with a monocytic predominance. Chemistry and LFTs were normal. Patient underwent CT of the abdomen and pelvis. This shows no acute intra-abdominal process. On reevaluation, she is resting comfortably. She is tolerating oral fluids. She feels improved. At this time, I do feel the patient is safe for discharge. I will prescribe her Zofran. She was counseled on concerning symptoms and reasons to return. She will be discharged home. Treatment Plan: [] Disposition: Discharge Impression: 1. Gastroenteritis This note was generated with [employer] software. It may contain incorrect words, spelling, and punctuation that were not noted in review of the chart prior to signing ED Disposition - Plan for ED Patient: Instructions: ED Gastroenteritis Vs Food Poison Prescriptions: Ondansetron [Zofran Odt] 4 mg PO Q8H PRN PRN #10 tab PRN Reason: Nausea Referrals: Rod Ochoa Chi, MD [Primary Care Provider] -
[2018-11-08 13:53] VITALS: BP 146/76; RESP 18
== END 2018-11-08 13:55 | disposition home or self-care (01) ==
LOC: ED 11:13
PROVIDERS: Emergency Provider Emergency Medicine; Family Provider Family Medicine Geriatric Medicine; PCP Family Medicine Geriatric Medicine
DX: K52.9 Noninfective gastroenteritis and colitis, unspecified (principal); K52.839 Microscopic colitis, unspecified; I48.0 Paroxysmal atrial fibrillation; Z79.02 Long term (current) use of antithrombotics/antiplatelets
CPT/HCPCS: 74177; 80053; 83690; 85025; 96361; 96374; 99285; J7030; Q9967; A4216; J2405

== ENCOUNTER → 2018-11-13 15:33 | Outpatient (CLI) | payer MEDICARE, OTHER, SELFPAY ==
[2018-11-08 10:06] VITALS: BMI 22.6
--- NOTE | 2018-11-13 15:53 | RAD_ITS ---
STUDY: X-RAY - LUMBOSACRAL SPINE REASON FOR EXAM: Female, 83 years old. Chronic back pain. TECHNIQUE: 6 view(s) of the lumbosacral spine were obtained including bending views.. COMPARISON: Comparison is made with prior study January 08, 2016. FINDINGS: Normal lumbar lordosis. There is a mild levoscoliosis of the lumbar spine. There is normal alignment of the vertebrae. There is multilevel endplate spondylosis of the lumbar vertebrae. There is multi-level degenerative disc disease with multi-level disc space narrowing. Normal bilateral sacral ala, sacroiliac joints, and visualized sacrum. The patient is status post right total hip replacement and left hip. There is atherosclerotic calcification of the abdominal aorta without a demonstrated aneurysm. RAD/L/S Spine Comp/w Bending Views IMPRESSION: Degenerative changes of the spine, as detailed above. Stable examination. Electronically Signed: Reji Ramírez, at 9:51 EDT , Service support ,
== END ==
PROVIDERS: Family Provider Family Medicine Geriatric Medicine; PCP Family Medicine Geriatric Medicine; Referring Provider Family Medicine Geriatric Medicine; Visit Provider Family Medicine Geriatric Medicine
DX: M54.5 Low back pain (principal)
CPT/HCPCS: 72114

== ENCOUNTER 2018-12-15 10:32 | Emergency (ER) | payer MEDICARE, OTHER, SELFPAY ==
[2018-12-15 10:34] VITALS: BP 118/65; PULSE 70; RESP 14; TEMP 36.3; O2SAT 100; BMI 20.5
--- NOTE | 2018-12-15 10:43 | RAD_ITS ---
STUDY: X-RAY - RIGHT FOOT CLINICAL: Female, 83 years old. Pain along the second third and fourth toes following a fall. TECHNIQUE: 3 view(s) of the foot. COMPARISON: None. FINDINGS: There is a plantar calcaneal spur. Normal visualized subtalar, talonavicular, calcaneocuboid, tarsal and tarsometatarsal articulations. There is demineralization of the metatarsi. There is degenerative arthrosis of the metatarsophalangeal joint of the hallux . Normal tibial and fibular sesamoid bones. Normal interphalangeal joint of the great toe. Normal phalanges of the great toe. Normal second through fifth metatarsophalangeal joints. Normal interphalangeal joints and phalanges of the lesser toes. Vascular calcification. RAD/Foot min 3 Views IMPRESSION: No acute abnormality is seen. Electronically Signed: Reji Ramírez, at 11:15 EDT , Service support ,
--- NOTE | 2018-12-15 10:44 | ED.VIS.LOWEX ---
History of Present Illness Chief Complaint: Lower Extremity Injury Informant: Patient Occurred: Today - Is like in a different [facility] Mechanism/Context: Fall Onset: Today Context: Sudden Onset Timing: Continuous Quality of Pain: Dull Location: Right foot and would like right knee examined Current Severity: Mild Maximum Severity: Moderate Worsened by: Palpation and weightbearing Relieved by: Rest Associated Symptoms: Negative for: Parasthesia, Weakness, Loss of Funtion Narrative: Patient is an elderly woman who had a mechanical fall. She fell forward. She struck her knee on a step and complains of pain involving the right great, second and third toe. She believes she may have stopped them. She is on an anticoagulant, Eliquis. She denies head trauma. Denies neck pain. Denies paresthesia, anesthesia or motor weakness. She denies prior injury to the right foot. She is status post total knee arthroplasty right and left. - Past Medical History (1) Acquired hypothyroidism Status: Chronic (2) Complete heart block Status: Chronic (3) Essential (primary) hypertension Status: Chronic (4) History of atrial fibrillation Status: Chronic Comment: on xarelto (5) History of permanent cardiac pacemaker placement Status: Chronic Comment: Slow ventricular response to a-fib 06/2009; (6) Hyperlipidemia Status: Chronic (7) Mild intermittent asthma Status: Chronic (8) Nonrheumatic mitral valve insufficiency Status: Chronic Past Medical History - Allergies and Home Meds Allergies/Adverse Reactions: Allergies latex Adverse Reaction (Verified 12/15/18 10:34) Itching sulfamethoxazole [From Bactrim] Adverse Reaction (Verified 12/15/18 10:34) Nausea trimethoprim [From Bactrim] Adverse Reaction (Verified 12/15/18 10:34) Nausea Primary Care Physician: Rod Ochoa Chi, MD [Primary Care Provider] - Prior records reviewed: Yes Surgical History: - - thyroidectomy, Lives: Alone Smoking Status: Never smoker Alcohol: None - Family History Maternal Family History: Family History (Last Reviewed 06/29/18 @ 13:50 by Funmilayo Hernandez) Father CAD (coronary artery disease) Brother Cancer Brother Epilepsy Family History: Reports: No pertinent history, - - cancer, kidney disease, lung disease, cardiac disease Review of Systems General: Denies: Chills, Fever, Malaise, Subjective, Sweats, Weight loss Musculoskeletal: Reports: Extremity Pain - Right knee injury and right foot pain. she pointed to the right great toe, second and third toe.. Denies: Myalgias, Arthralgias, Neck pain, Back pain, Swelling Neurological: Denies: Weakness, Parasthesia, Numbness Endocrine: Denies: Polyuria, Polydipsia Hematologic: Reports: Easy bruising. Denies: Easy bleeding Allergy: Denies: Uticaria, Swelling of the mouth Physical Exam Vital Signs/Narrative: Vital Signs Temp Pulse Resp BP Pulse Ox 12/15/18 10:34 97.4 F L 70 14 118/65 100 - Extremity Exam Right Femur: Negative for: Abrasion, Contusion, Deformity, Edema, Hematoma, Limited ROM, - Right Knee: Abrasion, - - She is able to extend to 180 degrees and flex to greater than 90 degrees. There is no laxity with varus valgus stress testing. Patella is not ballotable and there is no effusion. Negative Marcelle's test. Modified Shivani's test is negative. She has a well-healed scar secondary to total knee arthroplasty.. Negative for: Contusion, Deformity, Edema, Hematoma, Limited ROM Right Tib fib: Negative for: Abrasion, Contusion, Deformity, Edema, Hematoma, Limited ROM, - Right Ankle: Negative for: Abrasion, Contusion, Deformity, Edema, Hematoma, Limited ROM, - Right Foot: Contusion. Negative for: Abrasion, Deformity, Edema, Hematoma, Limited ROM Left Foot: Negative for: Abrasion, Contusion, Deformity, Edema, Hematoma, Limited ROM, - Right Toe: Contusion, Limited ROM, - - 9 Site the room to let him know that she says since he has been here now 2 hours. Negative for: Abrasion, Deformity, Edema, Hematoma Left Toe: Negative for: Abrasion, Contusion, Deformity, Edema, Hematoma, Limited ROM General: Well nourished, Well developed Head: Normocephalic, Atraumatic Eyes: Perrl, EOMI ENT: No Trauma - Call crisis, Moist Mucous Membranes Neck: Nontender - We will put will be glad to play this game, Full ROM Cardiovascular: Regular rate, Regular rhythm, No murmurs, Normal S1, Normal S2 Respiratory: No distress, CTA bilaterally, Chest nontender Neurological: Alert, Oriented x3, Cranial nerves II-XII grossly intact, Normal Strength, Normal Sensation Psychological: Normal affect Diagnostic/Tx/Re-eval Chest X-Ray - ED: Read by ED Physician Three-view x-ray of the foot was obtained. There is evidence of mild osteopenia. There is no evidence of fracture, subluxation or dislocation of the toes or MTP joints. - Medical Decision Making X-ray of the foot was obtained to evaluate for proximal fracture of the right great, second and third toe versus metatarsal fracture. Patient's knee exam is unremarkable and radiologic imaging is not indicated or warranted. ED Disposition - Plan for ED Patient: Disposition: Home or Assisted Living Diagnosis: Contused right toes (great toe, second t Instructions: ED Contusion Foot Referrals: Rod Ochoa Chi, MD [Primary Care Provider] - 1 Week if not improving
== END 2018-12-15 12:20 | disposition home or self-care (01) ==
PROVIDERS: Emergency Provider Emergency Medicine; Family Provider Family Medicine Geriatric Medicine; PCP Family Medicine Geriatric Medicine
DX: S90.111A Contusion of right great toe without damage to nail, initial encounter (principal); S90.121A Contusion of right lesser toe(s) without damage to nail, initial encounter; Z96.653 Presence of artificial knee joint, bilateral; I10 Essential (primary) hypertension; J45.20 Mild intermittent asthma, uncomplicated; Z95.0 Presence of cardiac pacemaker; E03.9 Hypothyroidism, unspecified; I48.91 Unspecified atrial fibrillation; Z79.02 Long term (current) use of antithrombotics/antiplatelets; Z79.899 Other long term (current) drug therapy; W19.XXXA Unspecified fall, initial encounter; Y93.01 Activity, walking, marching and hiking; Y92.89 Other specified places as the place of occurrence of the external cause; Y99.8 Other external cause status
CPT/HCPCS: 73630; 99282

== ENCOUNTER 2019-01-02 07:49 | Day surgery (SDC) | payer MEDICARE, OTHER, SELFPAY ==
[2018-12-27 14:46] VITALS: BMI 20.5
[2018-12-28 14:08] VITALS: BMI 20.5
--- NOTE | 2019-01-01 | COL_PTH ---
PATIENT: MARISA SANTIAGO LOC: EN U#:[id number] AGE/SX: 83/F ROOM: RE01/02/[address]: Dr. Jose Ngo MD : [id number] BED: DIS: 01/02/2019 SPEC #: [id number] RECD: 01/02/19 10:25 STATUS: ELI MAURO #: [id number] YOSELYN: 01/01/19 00:[address]: Jose Ngo DEPT: SURGICAL PATHOLOGY RECD BY: Melvin Rosario ENTERED: 01/02/19 12:23 SP TYPE: COLON OTHR DR: Dr. Rod Ochoa MD Tissues: Colon, NOS Procedures: Trichrome (control) Special Stain Group II Surgery Specimen Level IV HEADER OPERATION: Colonoscopy (MAC) PRE-OP DIAGNOSIS: Diarrhea TISSUE SUBMITTED: Random colon biopsies MICROSCOPIC DIAGNOSIS Colon, random biopsy: Fragments of colonic mucosa with changes consistent with microscopic (lymphocytic) colitis. See comment. SJ:aura 01/03/19 COMMENT Trichrome stain with matched control was used in the evaluation of the specimen and does not show significant thickening of subepithelial collagen. Correlation with clinical, endoscopic findings and appropriate follow up are necessary. MICROSCOPIC DESCRIPTION Slides are reviewed. GROSS DESCRIPTION Received in fixative is one container labeled with the patient's name and designated random colon biopsy. The specimen consists of multiple irregular fragments of light salas soft tissue that in aggregate measure 1 x 1 x 0.1 cm. The specimen is totally submitted in one cassette. / ZOEY:aura 01/02/19 TC:3 CPT: 09104, 11966
[2019-01-02] VITALS (8 sets, daily range): BP systolic 87–119; BP diastolic 44–74; PULSE 69–73; RESP 14–16; TEMP 35.9–36; O2SAT 96–100; BMI 21.2
--- NOTE | 2019-01-02 09:25 | OP.ENDO_ITS ---
01/02/2019 Rod Ochoa MD [address] [place] [address] Re : Colonoscopy procedure for Tabitha Quinn Dear Dr. Ochoa This procedure was performed on Wednesday, January 02, 2019. My impressions and recommendations are as follows: Impressions : - Preparation of the colon was fair. - Hemorrhoids found on perianal exam. - Diverticulosis in the sigmoid colon and in the descending colon. Biopsied. Recommendations : - Discharge patient to home. - Resume previous diet. - Continue present medications. - Repeat colonoscopy in 10 years for screening purposes. - Telephone my office for pathology results in 1 week. My findings are described in the full procedure note, which is enclosed. If I can be of further assistance, please feel free to contact me at Doctor phone number(s): Work: . Sincerely, Jose Ngo MD 01/02/2019 9:24:25 AM This report has been signed electronically.
== END 2019-01-02 10:40 | disposition home or self-care (01) ==
LOC: EN 07:50 → AC 07:50
PROVIDERS: Family Provider Family Medicine Geriatric Medicine; PCP Family Medicine Geriatric Medicine; Referring Provider Surgery; Visit Provider Surgery
PROC: 0DJD8ZZ Inspection of Lower Intestinal Tract, Via Natural or Artificial Opening Endoscopic (ICD-10-PCS; CPT 45378; principal; 2019-01-02 08:55)
DX: K52.839 Microscopic colitis, unspecified (principal); K64.9 Unspecified hemorrhoids; K57.30 Diverticulosis of large intestine without perforation or abscess without bleeding; I10 Essential (primary) hypertension; E03.9 Hypothyroidism, unspecified; I48.91 Unspecified atrial fibrillation; J45.20 Mild intermittent asthma, uncomplicated; E78.5 Hyperlipidemia, unspecified; D64.9 Anemia, unspecified; Z95.0 Presence of cardiac pacemaker; Z86.010 Personal history of colon polyps; Z79.02 Long term (current) use of antithrombotics/antiplatelets; Z79.899 Other long term (current) drug therapy
CPT/HCPCS: 45380; 88305; 88307; 88313; J7120

== ENCOUNTER → 2019-01-11 12:41 | Outpatient (CLI) | payer MEDICARE, OTHER, SELFPAY ==
[2019-01-11 12:36] VITALS: BMI 21.2
--- NOTE | 2019-01-11 12:46 | RAD_ITS ---
STUDY: X-RAY - RIGHT KNEE REASON FOR EXAM: Right knee pain, fall 3 weeks ago, arthroplasty 2004. TECHNIQUE: 4 view(s) of the knee. COMPARISON: None. FINDINGS: There is a right total knee arthroplasty without evidence of complication. There is a small joint effusion. There is vascular calcification. RAD/Knee 4 or More Views IMPRESSION: Uncomplicated right total knee arthroplasty. Small joint effusion. Electronically Signed: Shahzad Peña MD at 13:56 EDT Tel , Service support ,
== END ==
PROVIDERS: Family Provider Family Medicine Geriatric Medicine; PCP Family Medicine Geriatric Medicine; Referring Provider Orthopaedic Surgery; Visit Provider Orthopaedic Surgery
DX: R52 Pain, unspecified (principal)
CPT/HCPCS: 73564

== ENCOUNTER → 2019-01-15 13:38 | Outpatient (CLI) | payer MEDICARE, OTHER, SELFPAY ==
[2019-01-11 12:36] VITALS: BMI 21.2
--- NOTE | 2019-01-15 13:40 | CT_ITS ---
STUDY: CT RIGHT KNEE WITHOUT CONTRAST REASON FOR EXAM: Knee pain, fall 4 weeks ago. TECHNIQUE: Transaxial CT imaging of the knee was performed. Coronal and sagittal images were reformatted. Individualized dose optimization techniques were used for this CT. COMPARISON: Radiographs 01/11/2019. FINDINGS: There is a right total knee arthroplasty without demonstrated periprosthetic fracture or other complication. Normal proximal tibiofibular articulation. There is a small joint effusion. The quadriceps tendon is grossly normal. The patellar tendon is grossly normal. There is vascular calcification. CT/Extremity Lower without Contra IMPRESSION: Right total knee arthroplasty without demonstrated periprosthetic fracture. Small joint effusion. Electronically Signed: Shahzad Pñea MD at 11:10 EDT Tel , Service support ,
== END ==
PROVIDERS: Family Provider Family Medicine Geriatric Medicine; PCP Family Medicine Geriatric Medicine; Referring Provider Orthopaedic Surgery; Visit Provider Orthopaedic Surgery
DX: S80.01XA Contusion of right knee, initial encounter (principal)
CPT/HCPCS: 73700

== ENCOUNTER → 2019-02-08 | Outpatient (CLI) | payer MEDICARE, OTHER, SELFPAY ==
[2019-01-11 12:36] VITALS: BMI 21.2
[2019-01-19 07:53] VITALS: BMI 21.2
--- NOTE | 2019-02-08 13:53 | BI_ITS ---
MAMMOGRAPHY - BILATERAL DIAGNOSTIC REASON FOR EXAM: Female, 83 years old. Bruise in the right breast at the 12 to 1:00 position of the breast. PERTINENT HISTORY: Grandmother with breast cancer. TECHNIQUE: Digital bilateral breast erik (3D mammographic acquisition) in the CC and MLO projections. 2-D mediolateral oblique (MLO) and craniocaudad (CC) views of both breasts were obtained. CAD: Full Field Digital Mammography with Computer Added Detection was performed. COMPARISON: Comparison is made with prior study dated November 01, 2014 and October 01, 2016. FINDINGS: Breast Composition: The breasts are heterogeneously dense, which may obscure small masses. There are no dominant masses or suspicious calcifications. Stable bilateral secretory and arterial calcifications. A battery pack of a pacemaker is once again seen in the left axillary region. No other significant abnormalities are identified. There has been no significant change since the prior study. BI/DIAG MAMM W/CAD, BILAT IMPRESSION: Stable bilateral diagnostic mammogram. With the patient's history of a palpable abnormality in the right breast, correlation with ultrasound is recommended. ASSESSMENT CATEGORY: BIRADS Category 0: Incomplete. Need additional imaging evaluation. A letter regarding these results will be sent to the patient by the facility within 30 days. Approximately 10% of breast cancers are not detected by mammography. A normal mammogram should not delay biopsy of a clinically suspicious abnormality. Electronically Signed: Reji Ramírez, at 14:53 EDT , Service support ,
--- NOTE | 2019-02-08 13:53 | US_ITS ---
STUDY: ULTRASOUND BREAST - RIGHT REASON FOR EXAM: Female, 83 years old. Palpable lump in the right breast. TECHNIQUE: Axial and longitudinal images of the RIGHT breast were performed with a high resolution ultrasound transducer. COMPARISON: Comparison is made with prior mammogram dated February 08, 2019. FINDINGS: RIGHT Breast: The palpable abnormality corresponds to a 7 mm x 7 mm x 4 mm echogenic nodule just deep to the skin surface. This is at the 12:00 position of the breast at 2 cm from nipple. This most likely represents a small lipoma. US/Breast Limited Unilateral IMPRESSION: Findings suggestive of a 7 mm x 7 mm x 4 mm lipoma at the palpable site. ASSESSMENT CATEGORY: BIRADS Category 2: Benign. A letter regarding these results will be sent to the patient by the facility within 30 days. Electronically Signed: Reji Ramírez, at 8:04 EDT , Service support ,
== END | disposition home or self-care (01) ==
PROVIDERS: Family Provider Family Medicine Geriatric Medicine; PCP Family Medicine Geriatric Medicine; Referring Provider Family Medicine Geriatric Medicine; Visit Provider Family Medicine Geriatric Medicine
DX: N63.11 Unspecified lump in the right breast, upper outer quadrant (principal)
CPT/HCPCS: 76642; 77062; 77066; G0279

== ENCOUNTER → 2019-04-10 | Outpatient (CLI) | payer MEDICARE, OTHER, SELFPAY ==
[2019-03-27 10:33] VITALS: BMI 21.2
[2019-04-10 17:22] LABS: Absolute Lymphocyte Count 1.41 X10^3/uL (0.83-4.51); Absolute Neutrophil Count 4.8 X10^3/uL (2.0-7.7); Basophil# 0.09 X10^3/uL; Basophil% 1.2 % (0-1); Eosinophil# 0.26 X10^3/uL; Eosinophils% 3.5 % (0-5); Hematocrit 43.3 % (37-47); Hemoglobin 14.1 g/dL (12.0-15.0); Lymphocyte # 1.41 X10^3/ul (4.0); Lymphocyte % 19.2 % (19-41); Mean Corp Hgb Conc 32.6 g/dL (32-36); Mean Corpuscular Hgb 30.4 pg (27.0-32.0); Mean Corpuscular Volume 93.3 fL (81-99); Mean Platelet Vol. 10.9 fl (6.2-12.0); Monocyte# 0.79 X10^3/uL; Monocyte% 10.7 % (0-10); NRBC Flagged by Analyzer 0 % (0-5); Neutrophil # 4.75 X10^3/uL (2.7-7.7); Neutrophil % 64.6 % (47-70); Platelet Count 198 K/mm3 (150-450); RBC Distribution Width CV 13.2 % (11.6-14.6); RBC Distribution Width SD 44.9 fl (35.1-43.9); Red Blood Count 4.64 M/mm3 (4.2-5.4); White Blood Count 7.4 K/mm3 (4.4-11.0)
[2019-04-10 17:26] LABS: Vitamin D,25 Hydroxy 39.3 ng/mL (29.95-100.01)
[2019-04-10 17:31] LABS: ALB/GLOB Ratio 1.1 RATIO (0.9-2.4); AST(SGOT) 26 U/L (15-37); Alanine Aminotransfer ALT/SGPT 24 U/L (13-56); Albumin, Serum 3.6 g/dL (3.2-5.0); Alkaline Phosphatase 50 U/L (45-117); Anion Gap 7 (5-15); BUN 24 mg/dL (7-18); BUN/Creat Ratio 24.3 RATIO (10-20); Chloride 100 mmol/L (98-107); Creatinine, Serum 0.99 mg/dL (0.55-1.02); EST Glomerular Filtration Rate 57 mL/min (>60); Est Glom Filt Rate - Afr Amer 69 mL/min (>60); Globulin 3.4 g/dL (2.2-4.2); Glucose 82 mg/dL (74-106); Potassium 4.8 mmol/L (3.5-5.1); Sodium Level 135 mmol/L (136-145); Thyroid Stim Hormone (TSH) 4.05 uIU/mL (0.358-3.74)
== END | disposition home or self-care (01) ==
LOC: POLAB3 13:59
PROVIDERS: Family Provider Family Medicine Geriatric Medicine; PCP Family Medicine Geriatric Medicine; Visit Provider Family Medicine Geriatric Medicine
DX: I10 Essential (primary) hypertension (principal); E55.9 Vitamin D deficiency, unspecified
CPT/HCPCS: 36415; 80053; 82306; 84443; 85025

== ENCOUNTER 2019-05-30 11:27 | Inpatient (IN) | payer MEDICARE, OTHER, SELFPAY ==
[2019-03-27 10:33] VITALS: BMI 21.2
[2019-05-30] VITALS (8 sets, daily range): BP systolic 104–162; BP diastolic 52–105; PULSE 64–77; RESP 16–18; TEMP 36.3–36.5; O2SAT 96–98; BMI 20.5; BMI 18.8
--- NOTE | 2019-05-30 12:16 | CT_ITS ---
STUDY: CT BRAIN WITHOUT CONTRAST REASON FOR EXAM: Female, 84 years old. Laceration overlying the left orbit following a fall. RADIATION DOSAGE (If Supplied By Facility): CTDIvol = ( 44.99 ) mGy, DLP = ( 745.49 ) mGycm TECHNIQUE: Transaxial CT imaging of the brain was performed without administration of intravenous contrast material. Individualized dose optimization techniques were used for this CT. COMPARISON: Comparison is made with prior study dated August 12, 2016. FINDINGS: Moderate sized hematoma overlying the left orbital region and left globe. Normal calvarium. There is moderate cerebral atrophy with widening of the extra-axial spaces and ventricular dilatation. There are areas of decreased attenuation within the white matter tracts of the supratentorial brain, consistent with microvascular disease changes. Stable small bilateral lacunar infarcts. Normal brainstem. There is mild cerebellar atrophy. There is no intracranial hemorrhage. There are no findings of an acute ischemic infarction. Partial opacification of the right maxillary sinus. Minimal mucosal thickening along the inferior aspect of the left maxillary sinus. CT/Brain/Head without Contrast IMPRESSION: Chronic involutional changes of the brain. Moderate size hematoma overlying the left orbital region and left globe. Electronically Signed: Reji Ramírez, at 12:44 EDT , Service support ,
--- NOTE | 2019-05-30 12:16 | RAD_ITS ---
STUDY: X-RAY - RIGHT HAND REASON FOR EXAM: Female, 84 years old. Pain in the region of the thumb following a fall. TECHNIQUE: 3 view(s) of the hand. COMPARISON: None. FINDINGS: There is joint space narrowing of the radiocarpal articulation consistent with degenerative arthrosis. Normal distal radioulnar joint. There is diffuse demineralization of the carpal bones. 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 Normal second through fifth carpometacarpal joints. Nondisplaced transverse fracture at the base of the first metacarpal. Normal metacarpophalangeal joint of the thumb. Normal interphalangeal joint of the thumb. Normal proximal and distal phalanges of the thumb. Normal metacarpophalangeal joints of the second through fifth fingers. There is diffuse articular joint space narrowing of the proximal and distal interphalangeal joints of the second through fifth fingers, but without erosive changes or periarticular soft tissue swelling. Normal phalanges of the second through fifth fingers. Soft tissue swelling. Vascular calcification. RAD/Hand Min 3 Views IMPRESSION: Degenerative joint disease of the hand and wrist, as described above. Nondisplaced transverse fracture at the base of the first metacarpal. Electronically Signed: Reji Ramírez, at 13:14 EDT , Service support ,
--- NOTE | 2019-05-30 12:16 | RAD_ITS ---
STUDY: X-RAY - LEFT ELBOW REASON FOR EXAM: Female, 84 years old. Pain and laceration following a fall. TECHNIQUE: 3 view(s) of the elbow. COMPARISON: Comparison is made with prior examination dated January 14, 2018. FINDINGS: I suspect a nondisplaced radial neck fracture. There is degenerative arthrosis of the radiocapitellar and ulnotrochlear articulations. Joint effusion. Diffuse soft tissue swelling. RAD/Elbow min 3 Views IMPRESSION: I suspect a nondisplaced radial neck fracture with a joint effusion and diffuse soft tissue swelling. Electronically Signed: Reji Ramírez, at 13:13 EDT , Service support ,
--- NOTE | 2019-05-30 12:16 | RAD_ITS ---
STUDY: X-RAY - LEFT KNEE REASON FOR EXAM: Female, 84 years old. Anterior knee pain and laceration following a fall. TECHNIQUE: 4 view(s) of the knee. COMPARISON: Comparison is made with prior study March 30, 2016. FINDINGS: The patient is status post total knee replacement. There is good alignment. Diffuse prepatellar soft tissue swelling and laceration. RAD/Knee 4 or More Views IMPRESSION: Status post total knee replacement. Extensive prepatellar soft tissue swelling with laceration. Electronically Signed: Reji Ramírez, at 13:17 EDT , Service support ,
--- NOTE | 2019-05-30 12:18 | ED.DCSUM_ITS ---
- ER Visit Summary Date of Service: 05/30/19 Chief Complaint: Fall with left forehead injury, right hand, left elbow and left knee with lacerations. History of Present Illness: The patient is a 84 F treatment of [employer] on [employer]. Was at [employer] today. Tripped over her cane and fell hitting her left head, left elbow, left knee and right hand. She has lacerations to her left elbow and left knee. She has abrasions to her right hand. She denies any LOC. Does have a mild headache. No neck pain. Prior to the fall she felt fine she thinks she just simply tripped over her cane. Physical Examination: Older female. Vital signs are stable afebrile. HEENT exam abrasion and closed small laceration her left eyebrow that currently is not actively bleeding there is some dried blood there is swelling above her eye.. There is no active bleeding. Pupils are unreactive/motions are intact otherwise her face and scalp are nontender without any signs of trauma. C-spine nontender trachea midline. Able to touch chin to chest. Lungs clear to auscultation. Heart regular rhythm. Chest wall nontender. Abdomen soft nontender. Pelvic girdle intact. No shortening or external rotation of either hip. Left knee is swollen and has a large laceration in multiple layers. Right lower extremity hip, knee ankle foot nontender neurovascular intact. Her left foot and ankle are nontender neurovascular intact. Back is nontender. Her left elbow has a skin tear laceration on the lateral side. She is able to do full flexion extension left elbow. Supination pronation. Left shoulder wrist and hand are nontender neurovascular intact. Right upper extremities nontender. Neuro logically she is awake and alert with no focal motor deficits. Test Results: CT of the brain without contrast shows no acute abnormality. No bleed read by the radiologist and reviewed by me. Left elbow x-ray 3 views shows no acute abnormality. There is some soft tissue swelling. Radiologist was concerned there could be a radial neck fracture I do not see that and clinically she has full range of motion to the elbow with supination and pronation I do not think there is any fracture clinically. Right hand x-ray 3 view shows nondisplaced fracture of the base of the thumb metacarpal. Read both by myself the radiologist. Left knee x-ray 4 views shows no acute abnormality. Read both by myself and the radiologist. Views to the patient needing to be admitted to obtain screening labs for the hospitalist. The CBC was unremarkable with a white count 8 hemoglobin 13. Electrolytes were normal with a normal creatinine gap. Emergency Department Course and Treatment: Patient treated with Tylenol for pain. She states her tetanus status is up-to-date. All wounds will be cleaned. The left knee most likely will need to be repaired. X-rays and CAT scan of the brain is being obtained. Procedure # 1: Right thumb spica splint made by Ortho-Glass by myself. Short arm. Patient tolerated well. Procedure # 2: Left knee laceration with ER repair. Approximately 10 to 11 cm. Involve the skin and subcu tissue. Oozing of blood. Wound was locally anesthetized with lidocaine with epinephrine. Cleaned with iodine wash with s deshawn explored and closed using 11 simple interrupted 4-0 Ethilon sutures. Proper hemostasis wound closure obtained. Patient is able to lift her leg to 180 degrees and has both flexion extension. Extensor mechanism appears to be intact. There did not appear to be any joint involvement on exam. Treatment Plan: Multiple repeat exams patient is doing well. Clinically she has a close head injury and concussion. She is very dizzy with standing. In light of her age, close head injury, being on blood thinners, right thumb fracture, normally uses a cane and is right-handed and her left knee soft tissue swelling and laceration on top of her living alone I think she needs to be admitted and possibly may need placement. Hospitalist is on page. I did have director social evaluate the patient. She is comfortable with admission. 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. Disposition: admission Impression: Acute fall Acute closed head injury on Eliquis (concussion) Acute left elbow skin tear Acute left knee laceration with ER repair 11 cm Acute right hand base of the right thumb nondisplaced metacarpal fracture Thumb spica splint by ER fabricated using [employer]Glass. This note was generated with Doorbot dictation software. It may contain incorrect words, spelling, and punctuation that were not noted in review of the chart prior to signing ED Disposition - Plan for ED Patient: Referrals: Rod Ochoa Chi, MD [Primary Care Provider] -
[2019-05-30] MEDS: Acetaminophen 500 MG Tablet 1000 MG PO (13:09)
--- NOTE | 2019-05-30 15:35 | CM.ED ---
SOCIAL WORK ASSESSMENT INFORMANT: DR. IBRAHIM REASON FOR REFERRAL: D/C PLANNING LIVING SITUATION: PATIENT REPORTS LIVES HOME ALONE IN A 2 STORY HOME WITH 1 STEP TO ENTER FROM SIDE DOOR AND 3 STEPS INTO THE KITCHEN. DME: [employer] CANE, WALKER PRIOR LEVEL OF FUNCTIONING: PATIENT REPORTS PRIOR TO FALL WAS INDEPENDENT WITH ALL ADLS AND DRIVING. PATIENT STATES USES CANE FOR ASSISTANCE WITH AMBULATION AND STATES IT IS TIME FOR ME TO START USING THE WALKER. MENTAL HEALTH TREATMENT/HISTORY: PATIENT ADMITS TO HX OF DEPRESSION AND ANXIETY AND STATES IS PRESCRIBED MEDICATION BY PRIMARY CARE PHYSICIAN DR. SHEN. SUBSTANCE ABUSE HX: PATIENT DENIES ANY SUBSTANCE USE. ASSESSMENT: MET WITH PATIENT AT BEDSIDE. PATIENT SITTING AT SIDE OF BED C/O DIZZINESS FROM STANDING WITH NURSES. INTRODUCED ROLE AND REASON FOR REFERRAL. PATIENT REPORTS HAS 11 STITCHES IN HER KNEE, A BROKEN THUMB AND OTHER BUMPS AND BRUISES. PATIENT'S LEFT EYE SWOLLEN WITH LACERATION. PATIENT REPORTS WAS AT [facility] ATTENDING BALANCE CLASS WHEN SHE TRIPPED OVER CANE AND FELL. DISCUSSED OPTIONS FOR D/C. PATIENT DOES NOT FEEL SAFE RETURNING HOME D/T MEDICAL CONDITION. PATIENT REPORTS HAS BEEN TO [facility] IN THE PAST AND WOULD BE OPEN TO REFERRAL. PER NURSES, PATIENT TO BE ADMITTED. INFORMED PATIENT CM/SOCIAL WORK WOULD BE FOLLOWING UP TOMORROW. PATIENT VERBALIZED UNDERSTANDING. PLAN: ADMIT WITH FOLLOW UP FOR D/C PLANNING TOMORROW. HARRY RANDALL, POKER SUPERVISOR, ENGLISH DIVISION CHAIR.
[2019-05-30 15:51] LABS: Absolute Lymphocyte Count 1.21 X10^3/uL (0.83-4.51); Absolute Neutrophil Count 6.3 X10^3/uL (2.0-7.7); Basophil# 0.06 X10^3/uL; Basophil% 0.7 % (0-1); Eosinophil# 0.21 X10^3/uL; Eosinophils% 2.5 % (0-5); Hematocrit 41.6 % (37-47); Hemoglobin 13.7 g/dL (12.0-15.0); Lymphocyte # 1.21 X10^3/ul (4.0); Lymphocyte % 14.3 % (19-41); Mean Corp Hgb Conc 32.9 g/dL (32-36); Mean Corpuscular Hgb 30.8 pg (27.0-32.0); Mean Corpuscular Volume 93.5 fL (81-99); Mean Platelet Vol. 10.1 fl (6.2-12.0); Monocyte# 0.61 X10^3/uL; Monocyte% 7.2 % (0-10); NRBC Flagged by Analyzer 0 % (0-5); Neutrophil # 6.32 X10^3/uL (2.7-7.7); Neutrophil % 74.8 % (47-70); Platelet Count 202 K/mm3 (150-450); RBC Distribution Width CV 13.8 % (11.6-14.6); RBC Distribution Width SD 47.6 fl (35.1-43.9); Red Blood Count 4.45 M/mm3 (4.2-5.4); White Blood Count 8.5 K/mm3 (4.4-11.0)
[2019-05-30 15:59] LABS: Anion Gap 6 (5-15); BUN 16 mg/dL (7-18); Calcium,Total 9.8 mg/dL (8.5-10.1); Chloride 105 mmol/L (98-107); Creatinine, Serum 0.84 mg/dL (0.55-1.02); EST Glomerular Filtration Rate 69 mL/min (>60); Est Glom Filt Rate - Afr Amer 83 mL/min (>60); Estimated Creatinine Clearance 49.05 ml/min; Glucose 92 mg/dL (74-106); Potassium 4.1 mmol/L (3.5-5.1); Sodium Level 141 mmol/L (136-145)
--- NOTE | 2019-05-30 16:43 | PCM.HP.STD ---
<Pablo Smith - Last Filed: 05/30/19 16:43> Problem List (1) Knee laceration Status: Acute (2) Fracture of metacarpal base, first, right hand, closed Status: Acute (3) Periorbital edema of left eye Status: Acute (4) Sick sinus syndrome Status: Chronic (5) History of permanent cardiac pacemaker placement Status: Chronic Comment: Slow ventricular response to a-fib 06/2009; (6) Nonrheumatic mitral valve insufficiency Status: Chronic (7) Essential (primary) hypertension Status: Chronic (8) Acquired hypothyroidism Status: Chronic (9) History of atrial fibrillation Status: Chronic Comment: on xarelto (10) Microscopic colitis Status: Chronic (11) Mild intermittent asthma Status: Chronic (12) Venous insufficiency Status: Chronic (13) Hyperlipidemia Status: Chronic History of Present Illness Date of Admission: 05/30/19 Chief Complaint: fall, multiple injuries The patient is a 84 year old F with pmhx as above notable for hx Afib/Sick sinus syndrome on eliquis who presented to the ER after a mechanical fall today. At about 1100 she was ambulating in the [facility] going to exercise, she was holding her cane in her right hand, got her foot caught in it, and fell onto her left side. She struck her right hand, left elbow, left knee, and her head struck the ground twice near the left eye. 911 was called. She had bleeding from the left knee and left eye and left elbow which were bandaged. She was brought to the ER and bleeding was controlled. The left knee laceration was sutured. The left eye was lacerated but did not require suture. The right hand was found to have a nondisplaced transverse fracture at the base of the first metacarpal -a thumb spica splint was applied by the ER physician. CT of the brain showed periorbital edema. There is a questionable fracture on the left elbow reported as nondisplaced radial neck fracture with joint effusion and soft tissue swelling. Currently she complains of minimal pain. Bleeding is controlled. She has no dizziness or lightheadedness. She had no dizziness, lightheadedness or palpitations prior to her fall. She has no double vision, or headache. She has no numbness or tingling in the affected extremities. She has not attempted to ambulate yet. She will be admitted for observation and possible placement in assisted. [] Past Medical History Past Medical History (Chronic Problems): Chronic Problems (Last Reviewed 12/27/18 @ 14:21 by Elda Shafer) Complete heart block (Chronic) Sick sinus syndrome (Chronic) History of permanent cardiac pacemaker placement (Chronic) Slow ventricular response to a-fib 06/2009; Nonrheumatic mitral valve insufficiency (Chronic) Essential (primary) hypertension (Chronic) Acquired hypothyroidism (Chronic) History of atrial fibrillation (Chronic) on xarelto Microscopic colitis (Chronic) Mild intermittent asthma (Chronic) Ulcer of left lower extremity with fat layer exposed (Chronic) Edema leg (Chronic) Delayed wound healing (Chronic) Malnutrition (Chronic) Venous insufficiency (Chronic) Hyperlipidemia (Chronic) Medical History: Medical History (Last Reviewed 12/27/18 @ 14:21 by Elda Shafer) Personal history of colonic polyps (Acute) Z86.010 Complete heart block (Chronic) I44.2 Sick sinus syndrome (Chronic) I49.5 Nonrheumatic mitral valve insufficiency (Chronic) I34.0 Essential (primary) hypertension (Chronic) I10 Acquired hypothyroidism (Chronic) E03.9 History of atrial fibrillation (Chronic) Z86.79 on xarelto Microscopic colitis (Chronic) K52.839 Mild intermittent asthma (Chronic) J45.20 Ulcer of left lower extremity with fat layer exposed (Chronic) L97.922 Edema leg (Chronic) R60.0 Delayed wound healing (Chronic) T14.8 Malnutrition (Chronic) E46 Venous insufficiency (Chronic) Ulcer of right lower extremity with fat layer exposed (Resolved) L97.912 Hyperlipidemia (Chronic) E78.5 Anemia D64.9 Asthma J45.909 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 Allergies latex Adverse Reaction (Verified 05/30/19 11:33) Itching sulfamethoxazole [From Bactrim] Adverse Reaction (Verified 05/30/19 11:33) Nausea trimethoprim [From Bactrim] Adverse Reaction (Verified 05/30/19 11:33) Nausea Home Medications: Ambulatory Orders Medication Instructions Recorded Simvastatin [Zocor] 20 mg PO QHS 11/11/13 FA/Mv,Ca,Iron,Min/Lycopene/Lut 1 ea PO DAILY #0 10/31/14 [Centravites Tablet] apixaban 2.5 mg tablet 2.5 mg PO BID #180 tab 01/25/18 biotin 1 mg capsule 1 mg PO DAILY 06/29/18 Calcium Carb/Mag Ox/Zinc Sulf [Cvs 1 tab PO DAILY 05/30/19 [id number] Cplt] Cholecalciferol (Vitamin D3) 2,000 unit PO DAILY 05/30/19 [D3-2000] Levothyroxine Sodium 100 mcg PO DAILY 05/30/19 Metoprolol Tartrate [Lopressor 12.5 mg PO BID 05/30/19 (beta krystina)] Surgical History: Surgical History (Last Updated 12/27/18 @ 14:30 by Elda Shafer) History of permanent cardiac pacemaker placement (Chronic) Z95.0 Slow ventricular response to a-fib 06/2009; History of knee replacement Z96.659 History of right hip replacement Z96.641 H/O thyroidectomy E89.0 Surgical History: total knee arthroplasty, - - thyroidectomy, pacemaker Psychiatric History: No pertinent psych hx 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 Denies: Chills, Fever, Weight Change HEENT: Reports: Eye Pain - periorbital. Denies: Head Aches, Sinus Congestion, Sinus Drainage Cardiovascular: Denies: Chest Pain, Edema, Heaviness, Light Headedness, Orthopnea, Palpitations, Paroxysmal Noc. Dyspnea, Syncope Respiratory: Denies: Cough, Shortness of Breath, Shortness of breath at rest, Shortness of breath upon exertion, Sputum production, Wheezing Gastrointestinal: Denies: Abdominal Pain, Diarrhea, Nausea, Vomiting Genitourinary: Denies: Dysuria Musculoskeletal: Reports: Hand Pain, Joint Pain, Joint swelling, Joint Tenderness Skin: Reports: Wounds. Denies: Lesions, Pruritis, Rash, Skin Changes Neurological: Denies: Balance problems, Blurred vision, Slurred speech, Confusion, Focal weakness, Headaches, Numbness, Tingling Psychiatric: Denies: Anxiety, Depression, Homicidal Ideations, Suicidal Ideations Hematologic/ Lymphatic: Denies: Easy Bruising, Easy Bleeding VTE Information - Inpt Only VTE Present on Admission: No VTE Mechan Device Prophylaxis: SCD's VTE Pharm Prophylaxis ordered?: No Patient Problems: Active and Suspected Problems (Last Reviewed 12/27/18 @ 14:21 by Elda Shafer) Knee laceration (Acute) Fracture of metacarpal base, first, right hand, closed (Acute) Periorbital edema of left eye (Acute) - Physical Exam General: Alert, Oriented x3, Cooperative HEENT: PERRLA, EOMI, Normocephalic, - - left periorbital hematoma, small nonbleeding laceration Neck: Supple, No JVD, Negative Carotid Bruits Lungs: Clear to auscultation, Normal air movement Cardiovascular: Regular rate, No murmurs Abdomen: Bowel Sounds Present, Soft, Non Tender Extremities: No edema, Capillary Refill Less than 3 Seconds Skin: No rashes, No breakdown, - - dry skin LE Musculoskeletal: - - left elbow - good ROM, somewhat limited 2/2 tight wrap. Minimal pain / tenderness with palpation and ROM testing, no crepitation. Left knee wrapped, swollen. Right hand in thumb spica splint. PMS intact at distal upper and lower extremities. Neurological: Cranial nerves II-XII grossly intact Psych/Mental Status: Normal Affect, Appropriate, Alert and oriented to time, place, person, mood and affect Vital Signs Temp Pulse Resp BP Pulse Ox 97.5 F L 66 16 147/105 H 98 05/30/19 11:28 05/30/19 16:32 05/30/19 16:32 05/30/19 16:32 05/30/19 16:32 Oxygen Delivery Method Room Air Weight: 135 lb Body Mass Index (BMI) 20.5 Laboratory Tests Past 24 Hrs 05/30/19 05/30/19 15:40 15:40 WBC 8.5 RBC 4.45 Hgb 13.7 Hct 41.6 MCV 93.5 MCH 30.8 MCHC 32.9 RDW Std Deviation 47.6 H RDW Coeff of Radha 13.8 Plt Count 202 MPV 10.1 Immature Gran % (Auto) 0.500 Neut % (Auto) 74.8 H Lymph % (Auto) 14.3 L [place] % (Auto) 7.2 Eos % (Auto) 2.5 Baso % (Auto) 0.7 Absolute Neuts (auto) 6.3 Absolute Lymphs (auto) 1.21 Nucleated RBC % 0 Sodium 141 Potassium 4.1 Chloride 105 Carbon Dioxide 30.0 Anion Gap 6 BUN 16 Creatinine 0.84 Estim Creat Clear Calc 49.05 Est GFR (MDRD) Af Amer 83 Est GFR (MDRD) Non-Af 69 BUN/Creatinine Ratio 19.0 Glucose 92 Calcium 9.8 Assessment/Plan All Active Problems (Last Reviewed 12/27/18 @ 14:21 by Elda Shafer) Knee laceration (Acute) Fracture of metacarpal base, first, right hand, closed (Acute) Periorbital edema of left eye (Acute) Personal history of colonic polyps (Acute) Ulcer of right lower extremity with fat layer exposed (Resolved) 1. Mechanical fall with multiple injuries - right metacarpal fracture (splinted in ER), Left knee laceration (sutured in ER) with prepatellar swelling, Left elbow with questionable but unlikely fracture of the radial neck (good ROM with minimal pain/tenderness), left periorbital hematoma with small lac. CT brain with chronic change and moderate hematoma left orbital region/globe. -Obs to MS -PTOT -wound care -RICE therapy -acetaminophen, mobic -hold eliquis with hematoma to left eye. CBC in AM. currently normal. -o/p f/u with ortho - recently saw Zandra/Emilia. 2. Afib/SSS - s/p pacemaker - hold eliquis for now. continue metoprolol 3. HTN - metoprolol 4. HLD - statin 5. Hypothyroidism - continue synthroid 6. Microscopic colitis DVT ppx: DC planning: PTOT, she is considering SNF/Rehab This patient was seen by Pablo Smith PA-C under the supervision of Doctor Simone. <Eric Nichols - Last Filed: 05/30/19 17:52> History of Present Illness The patient is a 84 year old F with history of A. fib/sick sinus syndrome on Eliquis and a pacemaker, asthma was brought in from ER after mechanical fall. She was in [employer] and tripped over 4 prong cane. She fell on her left side and injured her left knee, elbow and left forehead. Has medium-sized left supraorbital hematoma, left knee laceration for which she had suture and left elbow swelling. She also nondisplaced transverse fracture of base of first metacarpal of right hand. She states her follows was mechanical she did not feel dizzy, lightheaded or headache. Past Medical History Medical History: Medical History (Last Reviewed 12/27/18 @ 14:21 by Elda Shafer) Personal history of colonic polyps (Acute) Z86.010 Complete heart block (Chronic) I44.2 Sick sinus syndrome (Chronic) I49.5 Nonrheumatic mitral valve insufficiency (Chronic) I34.0 Essential (primary) hypertension (Chronic) I10 Acquired hypothyroidism (Chronic) E03.9 History of atrial fibrillation (Chronic) Z86.79 on xarelto Microscopic colitis (Chronic) K52.839 Mild intermittent asthma (Chronic) J45.20 Ulcer of left lower extremity with fat layer exposed (Chronic) L97.922 Edema leg (Chronic) R60.0 Delayed wound healing (Chronic) T14.8 Malnutrition (Chronic) E46 Venous insufficiency (Chronic) Ulcer of right lower extremity with fat layer exposed (Resolved) L97.912 Hyperlipidemia (Chronic) E78.5 Anemia D64.9 Asthma J45.909 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 Allergies latex Adverse Reaction (Verified 05/30/19 11:33) Itching sulfamethoxazole [From Bactrim] Adverse Reaction (Verified 05/30/19 11:33) Nausea trimethoprim [From Bactrim] Adverse Reaction (Verified 05/30/19 11:33) Nausea Surgical History: Surgical History (Last Updated 12/27/18 @ 14:30 by Elda Shafer) History of permanent cardiac pacemaker placement (Chronic) Z95.0 Slow ventricular response to a-fib 06/2009; History of knee replacement Z96.659 History of right hip replacement Z96.641 H/O thyroidectomy E89.0 - *Family History Maternal Family History: Family History (Last Reviewed 05/30/19 @ 16:50 by MARY Pascual) Father CAD (coronary artery disease) Brother Cancer Brother Epilepsy - Physical Exam General: Alert, Oriented x3, Cooperative HEENT: Atraumatic, PERRLA, EOMI, Normocephalic, - - left periorbital hematoma, small nonbleeding laceration Scalp left periorbital hematoma. Neck: Supple, No JVD, Negative Carotid Bruits Lungs: Clear to auscultation, Normal air movement, No rhonchi, No wheeze, No rales Cardiovascular: Regular rate, Regular Rhythm, Normal S1, Normal S2, No murmurs Abdomen: Bowel Sounds Present, Soft, Non Tender, Non-Distended Extremities: No edema, Capillary Refill Less than 3 Seconds Skin: Ulcer/ Wound - Laceration over left knee required suture by ER physician. Small laceration over left periorbital region. Small hematoma over left elbow., Skin Tear, - Musculoskeletal: Arthritic Changes, Tenderness - Tenderness over left knee. Tenderness over left radial head. Range of motion full extension and pronation is limited. Tenderness on pronation over left radial head. Neurological: Cranial nerves II-XII grossly intact, Deep Tendon Reflexes 2+/4 and Symmetrical, Neuro grossly intact Psych/Mental Status: Normal Affect, Appropriate Vital Signs Temp Pulse Resp BP Pulse Ox 97.4 F L 77 16 154/84 H 96 05/30/19 17:36 05/30/19 17:36 05/30/19 17:36 05/30/19 17:36 05/30/19 17:36 Oxygen Delivery Method Room Air Weight: 135 lb Body Mass Index (BMI) 18.8 Laboratory Tests Past 24 Hrs 05/30/19 05/30/19 15:40 15:40 WBC 8.5 RBC 4.45 Hgb 13.7 Hct 41.6 MCV 93.5 MCH 30.8 MCHC 32.9 RDW Std Deviation 47.6 H RDW Coeff of Radha 13.8 Plt Count 202 MPV 10.1 Immature Gran % (Auto) 0.500 Neut % (Auto) 74.8 H Lymph % (Auto) 14.3 L [place] % (Auto) 7.2 Eos % (Auto) 2.5 Baso % (Auto) 0.7 Absolute Neuts (auto) 6.3 Absolute Lymphs (auto) 1.21 Nucleated RBC % 0 Sodium 141 Potassium 4.1 Chloride 105 Carbon Dioxide 30.0 Anion Gap 6 BUN 16 Creatinine 0.84 Estim Creat Clear Calc 49.05 Est GFR (MDRD) Af Amer 83 Est GFR (MDRD) Non-Af 69 BUN/Creatinine Ratio 19.0 Glucose 92 Calcium 9.8 Assessment/Plan This patient was seen in conjunction with Pablo HERNANDEZ. I have independently interviewed and examined the patient and reviewed pertinent history, examination findings, laboratory and plan of management. I have reviewed the note and agree with the documented findings with the few additional points. In brief, patient is admitted for 84 year old F with history of A. fib/sick sinus syndrome on Eliquis and a pacemaker is admitted after mechanical fall mainly on left side. Will hold Eliquis. PT and OT. Left knee laceration has been sutured in ER. Radiological imagings have been reviewed. There is suspicion of nondisplaced radial neck fracture with joint effusion and diffuse soft tissue swelling. There is nondisplaced transverse fracture at the base of first metacarpal of right hand. Right first and second finger has been strapped and is obtained by ER physician. Pain control. Patient will need follow-up with orthopedic surgeon as an outpatient. I have discussed my assessment with Pablo HERNANDEZ and orders have been reviewed. DVT prophylaxis: Hold Eliquis. Can resume after 36 hours. Monitor CBC daily. Laboratory Results 05/30/19 15:40: WBC 8.5, RBC 4.45, Hgb 13.7, Hct 41.6, MCV 93.5, MCH 30.8, MCHC 32.9, RDW Std Deviation 47.6 H, RDW Coeff of Radha 13.8, Plt Count 202, MPV 10.1, Immature Gran % (Auto) 0.500, Neut % (Auto) 74.8 H, Lymph % (Auto) 14.3 L, [place] % (Auto) 7.2, Eos % (Auto) 2.5, Baso % (Auto) 0.7, Absolute Neuts (auto) 6.3, Absolute Lymphs (auto) 1.21, Nucleated RBC % 0 05/30/19 15:40: Sodium 141, Potassium 4.1, Chloride 105, Carbon Dioxide 30.0, Anion Gap 6, BUN 16, Creatinine 0.84, Estim Creat Clear Calc 49.05, Est GFR (MDRD) Af Amer 83, Est GFR (MDRD) Non-Af 69, BUN/Creatinine Ratio 19.0, Glucose 92, Calcium 9.8 Clinical Impression(s) from Imaging Studies Brain CT 05/30/19 12:16 IMPRESSION: Chronic involutional changes of the brain. Moderate size hematoma overlying the left orbital region and left globe. Elbow X-Ray 05/30/19 12:16 IMPRESSION: I suspect a nondisplaced radial neck fracture with a joint effusion and diffuse soft tissue swelling. Hand X-Ray 05/30/19 12:16 IMPRESSION: Degenerative joint disease of the hand and wrist, as described above. Nondisplaced transverse fracture at the base of the first metacarpal. Knee X-Ray 05/30/19 12:16 IMPRESSION: Status post total knee replacement. Extensive prepatellar soft tissue swelling with laceration. Code Visit OBSV E&M: 78651 Initial observation care L3
[2019-05-30] MEDS: Atorvastatin Calcium 10 MG Tablet PO (22:01)
[2019-05-30] MEDS: Metoprolol Tartrate 25 MG Tablet 12.5 MG PO (22:01)
[2019-05-31] MEDS: oxyCODONE 5 MG Tablet PO ×2 (01:56→23:36)
[2019-05-31 05:41] LABS: Hematocrit 37.5 % (37-47); Hemoglobin 12.2 g/dL (12.0-15.0); Mean Corp Hgb Conc 32.5 g/dL (32-36); Mean Corpuscular Hgb 30.5 pg (27.0-32.0); Mean Corpuscular Volume 93.8 fL (81-99); Mean Platelet Vol. 10.7 fl (6.2-12.0); Platelet Count 188 K/mm3 (150-450); RBC Distribution Width CV 13.9 % (11.6-14.6); RBC Distribution Width SD 48.2 fl (35.1-43.9); White Blood Count 6.5 K/mm3 (4.4-11.0)
[2019-05-31 05:48] VITALS: BP 127/66; PULSE 70; RESP 18; TEMP 36.5; O2SAT 98
--- NOTE | 2019-05-31 07:14 | PCM.PN.HOSP ---
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 MUSCULOSKELETAL: Tenderness left thigh NEURO: Awake; no lateralizing signs. SKIN: Described above PSYCH; Normal affect Vitals/I&O's: Vital Signs Temp Pulse Resp BP Pulse Ox 97.7 F L 70 18 127/66 H 98 05/31/19 05:48 05/31/19 05:48 05/31/19 05:48 05/31/19 05:48 05/31/19 05:48 Oxygen Delivery Method Room Air Weight: 61.235 kg Body Mass Index (BMI) 18.8 Intake and Output for Last 24 Hours 05/29/19 05/30/19 05/31/19 23:59 23:59 23:59 Intake Total 650 / 650 Balance 650 / 650 Laboratory Results 05/30/19 15:40: WBC 8.5, RBC 4.45, Hgb 13.7, Hct 41.6, MCV 93.5, MCH 30.8, MCHC 32.9, RDW Std Deviation 47.6 H, RDW Coeff of Radha 13.8, Plt Count 202, MPV 10.1, Immature Gran % (Auto) 0.500, Neut % (Auto) 74.8 H, Lymph % (Auto) 14.3 L, [place] % (Auto) 7.2, Eos % (Auto) 2.5, Baso % (Auto) 0.7, Absolute Neuts (auto) 6.3, Absolute Lymphs (auto) 1.21, Nucleated RBC % 0 05/30/19 15:40: Sodium 141, Potassium 4.1, Chloride 105, Carbon Dioxide 30.0, Anion Gap 6, BUN 16, Creatinine 0.84, Estim Creat Clear Calc 49.05, Est GFR (MDRD) Af Amer 83, Est GFR (MDRD) Non-Af 69, BUN/Creatinine Ratio 19.0, Glucose 92, Calcium 9.8 05/31/19 05:04: WBC 6.5, RBC 4.00 L, Hgb 12.2, Hct 37.5, MCV 93.8, MCH 30.5, MCHC 32.5, RDW Std Deviation 48.2 H, RDW Coeff of Radha 13.9, Plt Count 188, MPV 10.7 Current Medications Acetaminophen (Tylenol) 650 mg PO Q6H PRN PRN PRN Reason: Pain Score 1-5/10 Atorvastatin Calcium (Lipitor) 10 mg PO QHS [facility] Last Admin: 05/30/19 22:01 Dose: 10 mg Documented by: Cholecalciferol (Vitamin D) 2,000 unit PO DAILY [facility] Levothyroxine Sodium (Synthroid) 100 mcg PO DAILY@0600 [facility] Meloxicam (Mobic) 7.5 mg PO DAILY [facility] Metoprolol Tartrate (Lopressor (Beta Dorothy)) 12.5 mg PO BID [facility] Last Admin: 05/30/19 22:01 Dose: 12.5 mg Documented by: Ondansetron HCl (Zofran Odt) 4 mg PO Q6H PRN PRN Reason: NAUSEA Oxycodone HCl (Oxyir) 5 mg PO Q6H PRN PRN PRN Reason: Pain Score 6-10/10 Last Admin: 05/31/19 01:56 Dose: 5 mg Documented by: Sodium Chloride () 10 - 40 ml IV UD PRN PRN Reason: SALINE FLUSH Medical Necessity - Tobacco Use Smoking Status: Never smoker Tobacco Use: Non-smoker Assessment/Plan All Active Problems (Last Reviewed 12/27/18 @ 14:21 by Elda Shafer) Knee laceration (Acute) Fracture of metacarpal base, first, right hand, closed (Acute) Periorbital edema of left eye (Acute) Personal history of colonic polyps (Acute) Ulcer of right lower extremity with fat layer exposed (Resolved) Patient is an 84-year-old lady who tripped resulting in a mechanical fall with multiple injuries in the emergency department admitted to regular nursing floor with consultation placed to orthopedic surgery, PT/OT and 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 Acute mechanical fall ~ Patient did sustain multiple injuries right metacarpal fracture (splinted in ER), Left knee laceration (sutured in ER) with prepatellar swelling, Left elbow with questionable fracture of the radial neck admitted to regular nursing floor for pain management consult placed wound care nurse for dressing changes also did consult orthopedic surgery. Patient is on Eliquis held on admission 2. Paroxysmal atrial fibrillation ~Rate controlled on metoprolol on systemic anticoagulation with Eliquis which was held due to above 3. Sick sinus syndrome ~status post pacemaker placement 4. Essential hypertension ~Did continue with patient home medications with plans for adjustment of doses if needed 5. Dyslipidemia ~patient is on statin therapy did continue 6. Hypothyroidism ~Patient is on levothyroxine did continue 7. Microscopic colitis ~currently asymptomatic 8 DVT prophylaxis Patient was on Eliquis prior to coming in which was held in view of above results Advance planning; did discuss with the patient and family regarding advanced directives as well as CODE STATUS. Did explain the various scenarios involved ( FULL CODE, DNR CCA, DNR CCA with no intubation, and DNR CC and what each meant) patient elected to be DNR CCA no intubation. Order was placed. Time spent on discussion 18 minutes. Code Visit OBSV E&M: 19987 Observ/hosp same date L3 Procedures: 49167 Advncd Care Plan 30 Min
[2019-05-31] MEDS: Levothyroxine 100 MCG Tablet PO (07:23)
--- NOTE | 2019-05-31 09:04 | NURSING ---
wound photo: left elbow
--- NOTE | 2019-05-31 09:05 | NURSING ---
wound photo: left knee
--- NOTE | 2019-05-31 09:58 | CASEMGMT ---
Copies of [facility] forms [facility] SW printed and placed in chart. Pt's medical POA has as per the demographics. Pt's first alternate listed is Martin Quinn, the second alternate is Phill Quinn. ORALIA Lewis
[2019-05-31 10:00] VITALS: BP 119/69; PULSE 66
[2019-05-31] MEDS: Acetaminophen 325 MG Tablet 650 MG PO ×2 (10:00→16:11)
[2019-05-31] MEDS: Metoprolol Tartrate 25 MG Tablet 12.5 MG PO (10:00)
[2019-05-31] MEDS: Meloxicam 7.5 MG Tablet PO (10:00)
[2019-05-31 10:09] VITALS: BP 119/69; PULSE 67; RESP 16; TEMP 36.6; O2SAT 100
--- NOTE | 2019-05-31 10:31 | CASEMGMT ---
Addendum entered by Elsi Gong 05/31/19 16:04: SW faxed referral to [facility]. SW did call Ramona at [facility] earlier and left her a message regarding referral. Plan: [facility] Tuesday pending acceptance Original Note: Social Work Note SW met with pt to confirm discharge plans. SW introduced self and role at [facility]. Pt is alert and orientated x4. Pt has guest present in room and gave this worker permission to speak to her in front of her guest. Pt states that her PCP is Dr. Ochoa and preferred pharmacy is [facility]. SW asked pt about discharge plans. Pt states that she thinks she will need short term rehabilitation at discharge and states [facility] is her first choice. SW explained Medicare guidelines and if pt discharges before third midnight it would be private pay for SNF. SW explained referral process to SNF and provided pt with list of SNFs. Pt is still agreeable to [facility]. SW will wit to fax referral until PT/OT evaluations are completed as SNF won't officially accept pt until pt works with PT/OT. SW to fax referral today. Plan: [facility] Tuesday pending acceptance Elsi Gong BARBED WIRE MACHINE OPERATOR, HOSPITALITY INTERNS[employer]IP
--- NOTE | 2019-05-31 14:48 | CHAPLAIN ---
Type of Pastoral Visit _x__ Initial Visit ___ Follow-up Visit ___ On-call Visit ___ General Patient Visit ___ Spiritual Assessment ___ Family Conference ___ Bereavement ___ Rapid Response ___ Code Blue ___ Other (describe below) Pastoral Care Referral From _x__ Patient ___ Family ___ Nurse ___ Physician ___ Transportation Coordinator ___ Irrigation Foreman ___ Other (describe below) Sacrament/Intervention _x__ Active listening ___ Anointing ___ Sabianist ___ Bereavement ___ Communion ___ Mary exploration ___ _x__ Life review ___ Prayer ___ Reconciliation ___ Sacrament of Sick _x__ Supportive presence ___ Wedding ___ Other (describe below) Pastoral Comments
[2019-05-31 16:08] VITALS: BP 91/53; PULSE 69; RESP 16; TEMP 36.6; O2SAT 96
--- NOTE | 2019-05-31 16:23 | CASEMGMT ---
Social Work Note SERJIO spoke with Marline at [facility] stating they are able to accept pt but will have to confirm on bed availability to determine if they will have a bed available on Tuesday. Marline states she will have confirmation tomorrow if she will have a bed available on Tuesday. Plan: [facility] Tuesday pending bed availability Elsi Gong MSW, SOLDERING MACHINE FEEDER
[2019-05-31 22:02] VITALS: BP 105/69; PULSE 70; RESP 18; TEMP 36.8; O2SAT 99
[2019-05-31 22:12] VITALS: BP 105/69; PULSE 70
[2019-05-31] MEDS: Atorvastatin Calcium 10 MG Tablet PO (22:12)
[2019-06-01 04:11] VITALS: BP 120/69; PULSE 72; RESP 18; TEMP 36.6; O2SAT 99
[2019-06-01 06:20] LABS: Absolute Neutrophil Count 2.7 X10^3/uL (2.0-7.7); Basophil# 0.07 X10^3/uL; Basophil% 1.5 % (0-1); Eosinophil# 0.45 X10^3/uL; Eosinophils% 9.6 % (0-5); Hematocrit 34.5 % (37-47); Hemoglobin 11.4 g/dL (12.0-15.0); Lymphocyte % 21.3 % (19-41); Mean Corpuscular Hgb 30.8 pg (27.0-32.0); Mean Corpuscular Volume 93.2 fL (81-99); Mean Platelet Vol. 10.5 fl (6.2-12.0); Monocyte# 0.49 X10^3/uL; Monocyte% 10.4 % (0-10); NRBC Flagged by Analyzer 0 % (0-5); Neutrophil # 2.66 X10^3/uL (2.7-7.7); Neutrophil % 56.6 % (47-70); Platelet Count 167 K/mm3 (150-450); RBC Distribution Width CV 13.7 % (11.6-14.6); RBC Distribution Width SD 46.5 fl (35.1-43.9); White Blood Count 4.7 K/mm3 (4.4-11.0)
[2019-06-01] MEDS: Levothyroxine 100 MCG Tablet PO (06:24)
[2019-06-01 06:45] LABS: Anion Gap 9 (5-15); BUN 27 mg/dL (7-18); BUN/Creat Ratio 28.3 RATIO (10-20); Calcium,Total 8.1 mg/dL (8.5-10.1); Chloride 105 mmol/L (98-107); Creatinine, Serum 0.95 mg/dL (0.55-1.02); EST Glomerular Filtration Rate 60 mL/min (>60); Est Glom Filt Rate - Afr Amer 72 mL/min (>60); Estimated Creatinine Clearance 43.37 ml/min; Glucose 91 mg/dL (74-106); Magnesium 1.7 mg/dL (1.6-2.6); Potassium 3.8 mmol/L (3.5-5.1); Sodium Level 139 mmol/L (136-145)
--- NOTE | 2019-06-01 07:34 | PCM.PN.HOSP ---
Patient Problems: Active and Suspected Problems (Last Reviewed 12/27/18 @ 14:21 by Elda Shafer) Knee laceration (Acute) Fracture of metacarpal base, first, right hand, closed (Acute) Periorbital edema of left eye (Acute) Subjective: CC follow-up for acute mechanical fall Patient seen. Per nursing staff has been able to ambulate with a walker. Consult was placed to case management/social service liaison plan is for patient to be Objective: GENERAL: cooperative HEENT: Bruising left side of the face EYES; Anicteric, left subconjunctival hemorrhage NECK; supple, normal thyroid, RESPIRATORY: Diminished to auscultation CARDIOVASCULAR: Irregular S1-S2 GI: soft, non-tender, normoactive bowel sounds, : No Renal angle tenderness; EXTREMITIES: Right upper extremity immobilized. MUSCULOSKELETAL: Tenderness left thigh NEURO: Awake; no lateralizing signs. SKIN: skin tears upper extremity PSYCH; Normal affect Vitals/I&O's: Vital Signs Temp Pulse Resp BP Pulse Ox 97.9 F 72 18 120/69 99 06/01/19 04:11 06/01/19 04:11 06/01/19 04:11 06/01/19 04:11 06/01/19 04:11 Oxygen Delivery Method Room Air Weight: 61.235 kg Body Mass Index (BMI) 18.8 Intake and Output for Last 24 Hours 05/30/19 05/31/19 06/01/19 23:59 23:59 23:59 Intake Total 1410 / 2160 1050 / 1050 Balance 1410 / 2160 1050 / 1050 Laboratory Results 06/01/19 05:49: WBC 4.7, RBC 3.70 L, Hgb 11.4 L, Hct 34.5 L, MCV 93.2, MCH 30.8, MCHC 33.0, RDW Std Deviation 46.5 H, RDW Coeff of Radha 13.7, Plt Count 167, MPV 10.5, Immature Gran % (Auto) 0.600, Neut % (Auto) 56.6, Lymph % (Auto) 21.3, [place] % (Auto) 10.4 H, Eos % (Auto) 9.6 H, Baso % (Auto) 1.5 H, Absolute Neuts (auto) 2.7, Absolute Lymphs (auto) 1.00, Nucleated RBC % 0 06/01/19 05:49: Sodium 139, Potassium 3.8, Chloride 105, Carbon Dioxide 25.0, Anion Gap 9, BUN 27 H, Creatinine 0.95, Estim Creat Clear Calc 43.37, Est GFR (MDRD) Af Amer 72, Est GFR (MDRD) Non-Af 60, BUN/Creatinine Ratio 28.3 H, Glucose 91, Calcium 8.1 L, Magnesium 1.7 Current Medications Acetaminophen (Tylenol) 650 mg PO Q6H PRN PRN PRN Reason: Pain Score 1-5/10 Last Admin: 05/31/19 16:11 Dose: 650 mg Documented by: Atorvastatin Calcium (Lipitor) 10 mg PO QHS [facility] Last Admin: 05/31/19 22:12 Dose: 10 mg Documented by: Cholecalciferol (Vitamin D) 2,000 unit PO DAILY [facility] Last Admin: 05/31/19 10:00 Dose: 2,000 unit Documented by: Levothyroxine Sodium (Synthroid) 100 mcg PO DAILY@0600 [facility] Last Admin: 06/01/19 06:24 Dose: 100 mcg Documented by: Meloxicam (Mobic) 7.5 mg PO DAILY [facility] Last Admin: 05/31/19 10:00 Dose: 7.5 mg Documented by: Metoprolol Tartrate (Lopressor (Beta Dorothy)) 12.5 mg PO BID [facility] Last Admin: 05/31/19 22:12 Dose: Not Given Documented by: Ondansetron HCl (Zofran Odt) 4 mg PO Q6H PRN PRN Reason: NAUSEA Oxycodone HCl (Oxyir) 5 mg PO Q6H PRN PRN PRN Reason: Pain Score 6-10/10 Last Admin: 05/31/19 23:36 Dose: 5 mg Documented by: Sodium Chloride () 10 - 40 ml IV UD PRN PRN Reason: SALINE FLUSH Medical Necessity - Tobacco Use Smoking Status: Never smoker Tobacco Use: Non-smoker Assessment/Plan All Active Problems (Last Reviewed 12/27/18 @ 14:21 by Elda Shafer) Knee laceration (Acute) Fracture of metacarpal base, first, right hand, closed (Acute) Periorbital edema of left eye (Acute) Personal history of colonic polyps (Acute) Ulcer of right lower extremity with fat layer exposed (Resolved) Patient is an 84-year-old lady who tripped resulting in a mechanical fall with multiple injuries in the emergency department admitted to regular nursing floor with consultation placed to orthopedic surgery, PT/OT and social service liaison 1. Acute mechanical fall ~ Patient did sustain multiple injuries right metacarpal fracture (splinted in ER), Left knee laceration (sutured in ER) with prepatellar swelling, Left elbow with questionable fracture of the radial neck admitted to regular nursing floor for pain management consult placed wound care nurse for dressing changes also did consult orthopedic surgery. Patient is on Eliquis held on admission ?06/01/2019:Per nursing staff has been able to ambulate with a walker. Consult was placed to case management/social service liaison plan is for patient to be 2. Paroxysmal atrial fibrillation ~Rate controlled on metoprolol on systemic anticoagulation with Eliquis which was held due to above 3. Sick sinus syndrome ~status post pacemaker placement 4. Essential hypertension ~Did continue with patient home medications with plans for adjustment of doses if needed 5. Dyslipidemia ~patient is on statin therapy did continue 6. Hypothyroidism ~Patient is on levothyroxine did continue 7. Microscopic colitis ~currently asymptomatic 8. DVT prophylaxis ~ Patient was on Eliquis prior to coming in which was held in view of above results Code Visit Inpatient E&M: 21412 Subs Hosp L2
--- NOTE | 2019-06-01 09:30 | CASEMGMT ---
Social Work Note SERJIO spoke with Marline at [facility] and asked about bed availability on Tuesday. Marline states she is going into morning meeting and will know after morning meeting if she will have a bed on Tuesday. SERJIO waiting for call back from [facility]. Plan: [facility] Tuesday Pending bed availability Elsi Gong MSW, METAL CABINET FINISHER
[2019-06-01 09:57] VITALS: BP 103/50; PULSE 69; RESP 18; TEMP 36.6; O2SAT 99
[2019-06-01 10:03] VITALS: PULSE 69
[2019-06-01] MEDS: Meloxicam 7.5 MG Tablet PO (10:03)
[2019-06-01] MEDS: Metoprolol Tartrate 25 MG Tablet 12.5 MG PO ×2 (10:03→21:48)
--- NOTE | 2019-06-01 11:43 | CASEMGMT ---
Addendum entered by Elsi Gong 06/01/19 13:03: SW received a call from Marline at [facility] stating they are able to accept pt Tuesday as there will be a bed available. SW received a call from Yesy in [facility] stating she is also able to accept pt Tuesday. SW met with pt and informed her that both [facility] and [facility] are able to accept pt Tuesday. Pt states that she prefers to stay at [facility] and go to TCU. SW updated Yesy in TCU that pt will be coming to TCU Tuesday. SW placed a call to Marline at [facility] and updated her that pt will now be going to TCU Tuesday and not [facility]. Green sheet on chart. Plan: [facility]CU Tuesday Elsi HASKINS, BLOOD BANK TECHNICIAN Original Note: Social Work Note SW called [facility] again and left message for Ramona/Marline asking if they will have a bed for pt on Tuesday or not. SW met with pt. SW informed pt that [facility] is medically able to accept but they are checking on if they will have a bed for pt on Tuesday or not. SW asked pt for an alternative in the event [facility] doesn't have a bed on Tuesday. Pt reviewed SNF list. Pt agreeable to TCU. SW placed a call to referral line and left message regarding referral. SW waiting for a call back from [facility] and U. Elsi HASKINS, BLOOD BANK TECHNICIAN
[2019-06-01] MEDS: oxyCODONE 5 MG Tablet PO ×2 (14:10→21:56)
[2019-06-01 15:07] VITALS: BP 134/78; PULSE 70; RESP 18; TEMP 36.9; O2SAT 100
[2019-06-01 21:47] VITALS: BP 118/60; PULSE 70; RESP 16; TEMP 36.3; O2SAT 98
[2019-06-01 21:48] VITALS: PULSE 70
[2019-06-01] MEDS: Atorvastatin Calcium 10 MG Tablet PO (21:48)
[2019-06-02 03:27] VITALS: BP 134/72; PULSE 70; RESP 16; TEMP 36.7; O2SAT 98
[2019-06-02] MEDS: Levothyroxine 100 MCG Tablet PO (05:29)
--- NOTE | 2019-06-02 07:22 | PCM.PN.HOSP ---
Patient Problems: Active and Suspected Problems (Last Reviewed 12/27/18 @ 14:21 by Elda Shafer) Knee laceration (Acute) Fracture of metacarpal base, first, right hand, closed (Acute) Periorbital edema of left eye (Acute) Subjective: CC: Follow-up acute mechanical fall Patient seen participating in physical therapy. States pain is controlled. Objective: GENERAL: cooperative HEENT: Bruising left side of the face EYES; Anicteric, left subconjunctival hemorrhage NECK; supple, normal thyroid, RESPIRATORY: Diminished to auscultation CARDIOVASCULAR: Irregular S1-S2 GI: soft, non-tender, normoactive bowel sounds, : No Renal angle tenderness; EXTREMITIES: Right upper extremity immobilized. MUSCULOSKELETAL: Tenderness left thigh NEURO: Awake; no lateralizing signs. SKIN: skin tears upper extremity PSYCH; Normal affect Vitals/I&O's: Vital Signs Temp Pulse Resp BP Pulse Ox 98.1 F 70 16 134/72 H 98 06/02/19 03:27 06/02/19 03:27 06/02/19 03:27 06/02/19 03:06/02/19 03:27 Oxygen Delivery Method Room Air Weight: 61.235 kg Body Mass Index (BMI) 18.8 Intake and Output for Last 24 Hours 05/31/19 06/01/19 06/02/19 23:59 23:59 23:59 Intake Total 1410 / 2160 1250 / 1250 50 / 50 Balance 1410 / 2160 1250 / 1250 50 / 50 Current Medications Acetaminophen (Tylenol) 650 mg PO Q6H PRN PRN PRN Reason: Pain Score 1-5/10 Last Admin: 05/31/19 16:11 Dose: 650 mg Documented by: Atorvastatin Calcium (Lipitor) 10 mg PO QHS [facility] Last Admin: 06/01/19 21:48 Dose: 10 mg Documented by: Cholecalciferol (Vitamin D) 2,000 unit PO DAILY [facility] Last Admin: 06/01/19 10:03 Dose: 2,000 unit Documented by: Levothyroxine Sodium (Synthroid) 100 mcg PO DAILY@0600 [facility] Last Admin: 06/02/19 05:29 Dose: 100 mcg Documented by: Meloxicam (Mobic) 7.5 mg PO DAILY [facility] Last Admin: 06/01/19 10:03 Dose: 7.5 mg Documented by: Metoprolol Tartrate (Lopressor (Beta Dorothy)) 12.5 mg PO BID [facility] Last Admin: 06/01/19 21:48 Dose: 12.5 mg Documented by: Ondansetron HCl (Zofran Odt) 4 mg PO Q6H PRN PRN Reason: NAUSEA Oxycodone HCl (Oxyir) 5 mg PO Q6H PRN PRN PRN Reason: Pain Score 6-10/10 Last Admin: 06/01/19 21:56 Dose: 5 mg Documented by: Sodium Chloride () 10 - 40 ml IV UD PRN PRN Reason: SALINE FLUSH Medical Necessity - Tobacco Use Smoking Status: Never smoker Tobacco Use: Non-smoker Assessment/Plan All Active Problems (Last Reviewed 12/27/18 @ 14:21 by Elda Shafer) Knee laceration (Acute) Fracture of metacarpal base, first, right hand, closed (Acute) Periorbital edema of left eye (Acute) Personal history of colonic polyps (Acute) Ulcer of right lower extremity with fat layer exposed (Resolved) Patient is an 84-year-old lady who tripped resulting in a mechanical fall with multiple injuries in the emergency department admitted to regular nursing floor with consultation placed to orthopedic surgery, PT/OT and social service worker 1. Acute mechanical fall ~ Patient did sustain multiple injuries right metacarpal fracture (splinted in ER), Left knee laceration (sutured in ER) with prepatellar swelling, Left elbow with questionable fracture of the radial neck admitted to regular nursing floor for pain management consult placed wound care nurse for dressing changes also did consult orthopedic surgery. Patient is on Eliquis held on admission ?06/01/2019:Per nursing staff has been able to ambulate with a walker. Consult was placed to case management/social service worker plan is for patient to be ?06/02/2019 patient seen for outpatient physical therapy. Pain is relatively well controlled. Plan is for patient to be discharged to a correction facility on 06/03/2019 2. Paroxysmal atrial fibrillation ~Rate controlled on metoprolol on systemic anticoagulation with Eliquis which was held due to above 3. Sick sinus syndrome ~status post pacemaker placement 4. Essential hypertension ~Did continue with patient home medications with plans for adjustment of doses if needed 5. Dyslipidemia ~patient is on statin therapy did continue 6. Hypothyroidism ~Patient is on levothyroxine did continue 7. Microscopic colitis ~currently asymptomatic 8. DVT prophylaxis ~ Patient was on Eliquis prior to coming in which was held in view of above results Code Visit Inpatient E&M: 40598 Subs Hosp L2
[2019-06-02 07:37] LABS: Absolute Lymphocyte Count 1.06 X10^3/uL (0.83-4.51); Absolute Neutrophil Count 3.4 X10^3/uL (2.0-7.7); Basophil# 0.08 X10^3/uL; Basophil% 1.4 % (0-1); Eosinophil# 0.45 X10^3/uL; Eosinophils% 8.1 % (0-5); Hematocrit 34.4 % (37-47); Hemoglobin 10.9 g/dL (12.0-15.0); Lymphocyte # 1.06 X10^3/ul (4.0); Lymphocyte % 19.1 % (19-41); Mean Corp Hgb Conc 31.7 g/dL (32-36); Mean Corpuscular Hgb 30.4 pg (27.0-32.0); Mean Corpuscular Volume 95.8 fL (81-99); Mean Platelet Vol. 10.2 fl (6.2-12.0); Monocyte# 0.51 X10^3/uL; Monocyte% 9.2 % (0-10); NRBC Flagged by Analyzer 0 % (0-5); Neutrophil # 3.42 X10^3/uL (2.7-7.7); Neutrophil % 61.5 % (47-70); Platelet Count 157 K/mm3 (150-450); RBC Distribution Width CV 13.7 % (11.6-14.6); Red Blood Count 3.59 M/mm3 (4.2-5.4); White Blood Count 5.6 K/mm3 (4.4-11.0)
[2019-06-02 08:00] LABS: Anion Gap 2 (5-15); BUN 21 mg/dL (7-18); Calcium,Total 8.4 mg/dL (8.5-10.1); Chloride 109 mmol/L (98-107); EST Glomerular Filtration Rate 85 mL/min (>60); Est Glom Filt Rate - Afr Amer 103 mL/min (>60); Estimated Creatinine Clearance 41.21 ml/min; Glucose 83 mg/dL (74-106); Potassium 4.2 mmol/L (3.5-5.1); Sodium Level 137 mmol/L (136-145)
[2019-06-02 09:25] VITALS: BP 122/69; PULSE 69; RESP 18; TEMP 36.6; O2SAT 100
[2019-06-02] MEDS: oxyCODONE 5 MG Tablet PO (10:08)
[2019-06-02 10:09] VITALS: BP 122/69; PULSE 69
[2019-06-02] MEDS: Metoprolol Tartrate 25 MG Tablet 12.5 MG PO ×2 (10:09→21:45)
[2019-06-02] MEDS: Meloxicam 7.5 MG Tablet PO (10:12)
[2019-06-02] MEDS: Ondansetron ODT 4 MG Tablet PO (14:27)
[2019-06-02 15:30] VITALS: BP 134/71; PULSE 69; RESP 16; TEMP 36.6; O2SAT 97
[2019-06-02 21:33] VITALS: BP 151/59; PULSE 72; RESP 16; TEMP 36.6; O2SAT 99
[2019-06-02 21:45] VITALS: PULSE 72
[2019-06-02] MEDS: Atorvastatin Calcium 10 MG Tablet PO (21:45)
[2019-06-02] MEDS: MELATONIN 3 MG TABLET PO (22:45)
[2019-06-02] MEDS: Acetaminophen 325 MG Tablet 650 MG PO (22:45)
[2019-06-03 01:27] VITALS: BP 135/74; PULSE 70; RESP 22; TEMP 36.4; O2SAT 100
[2019-06-03 01:30] VITALS: RESP 22; O2SAT 100
[2019-06-03] MEDS: Ondansetron ODT 4 MG Tablet PO (01:30)
[2019-06-03 02:30] VITALS: RESP 20; O2SAT 100
[2019-06-03 02:33] VITALS: BP 130/83; PULSE 70; RESP 20; TEMP 36.6; O2SAT 99
[2019-06-03] MEDS: Levothyroxine 100 MCG Tablet PO (05:34)
[2019-06-03 06:26] LABS: Absolute Lymphocyte Count 0.98 X10^3/uL (0.83-4.51); Absolute Neutrophil Count 3.6 X10^3/uL (2.0-7.7); Basophil# 0.07 X10^3/uL; Basophil% 1.3 % (0-1); Eosinophils% 7.2 % (0-5); Hematocrit 32.2 % (37-47); Hemoglobin 10.7 g/dL (12.0-15.0); Lymphocyte # 0.98 X10^3/ul (4.0); Lymphocyte % 17.6 % (19-41); Mean Corp Hgb Conc 33.2 g/dL (32-36); Mean Corpuscular Hgb 30.7 pg (27.0-32.0); Mean Corpuscular Volume 92.5 fL (81-99); Mean Platelet Vol. 10.5 fl (6.2-12.0); Monocyte# 0.46 X10^3/uL; Monocyte% 8.2 % (0-10); NRBC Flagged by Analyzer 0 % (0-5); Neutrophil # 3.62 X10^3/uL (2.7-7.7); Neutrophil % 64.8 % (47-70); Platelet Count 174 K/mm3 (150-450); RBC Distribution Width CV 13.5 % (11.6-14.6); RBC Distribution Width SD 45.9 fl (35.1-43.9); Red Blood Count 3.48 M/mm3 (4.2-5.4); White Blood Count 5.6 K/mm3 (4.4-11.0)
[2019-06-03 06:48] LABS: Anion Gap 4 (5-15); BUN 15 mg/dL (7-18); Calcium,Total 8.9 mg/dL (8.5-10.1); Chloride 105 mmol/L (98-107); Creatinine, Serum 0.68 mg/dL (0.55-1.02); EST Glomerular Filtration Rate 88 mL/min (>60); Est Glom Filt Rate - Afr Amer 106 mL/min (>60); Estimated Creatinine Clearance 41.21 ml/min; Glucose 87 mg/dL (74-106); Potassium 4.2 mmol/L (3.5-5.1); Sodium Level 136 mmol/L (136-145)
--- NOTE | 2019-06-03 07:17 | DS.PCM_ITS ---
Discharge Date and Diagnosis - Problem List Patient Problems: Active and Suspected Problems (Last Reviewed 12/27/18 @ 14:21 by Elda Shafer) Knee laceration (Acute) Fracture of metacarpal base, first, right hand, closed (Acute) Periorbital edema of left eye (Acute) Date of Admission: 05/30/19 Date of Discharge: 06/03/19 - Primary Discharge Diagnosis Active and Suspected Problems (Last Reviewed 12/27/18 @ 14:21 by Elda Shafer) Knee laceration (Acute) Fracture of metacarpal base, first, right hand, closed (Acute) Periorbital edema of left eye (Acute) - Secondary Discharge Diagnosis Chronic Problems (Last Reviewed 12/27/18 @ 14:21 by Elda Shafer) Complete heart block (Chronic) Sick sinus syndrome (Chronic) History of permanent cardiac pacemaker placement (Chronic) Slow ventricular response to a-fib 06/2009; Nonrheumatic mitral valve insufficiency (Chronic) Essential (primary) hypertension (Chronic) Acquired hypothyroidism (Chronic) History of atrial fibrillation (Chronic) on xarelto Microscopic colitis (Chronic) Mild intermittent asthma (Chronic) Ulcer of left lower extremity with fat layer exposed (Chronic) Edema leg (Chronic) Delayed wound healing (Chronic) Malnutrition (Chronic) Venous insufficiency (Chronic) Hyperlipidemia (Chronic) Hospital Course and Treatment Imaging Results: Clinical Impression(s) from Imaging Studies Brain CT 05/30/19 12:16 IMPRESSION: Chronic involutional changes of the brain. Moderate size hematoma overlying the left orbital region and left globe. Electronically Signed: Reji aRmírez, at 12:44 EDT , Service support , Elbow X-Ray 05/30/19 12:16 IMPRESSION: I suspect a nondisplaced radial neck fracture with a joint effusion and diffuse soft tissue swelling. Electronically Signed: Reji Ramírez, at 13:13 EDT , Service support , Hand X-Ray 05/30/19 12:16 IMPRESSION: Degenerative joint disease of the hand and wrist, as described above. Nondisplaced transverse fracture at the base of the first metacarpal. Electronically Signed: Reji Ramírez, at 13:14 EDT , Service support , Knee X-Ray 05/30/19 12:16 IMPRESSION: Status post total knee replacement. Extensive prepatellar soft tissue swelling with laceration. Electronically Signed: Reji Ramírez, at 13:17 EDT , Service support , Consultations 05/30/19 17:26 Consult: Onc/Wound/director of vocational training Routine Comment: Summary of Care Provided: Patient is an 84-year-old lady who tripped resulting in a mechanical fall with multiple injuries in the emergency department admitted to regular nursing floor with consultation placed to orthopedic surgery, PT/OT and social insurance adviser 1. Acute mechanical fall ~ Patient did sustain multiple injuries right metacarpal fracture (splinted in ER), Left knee laceration (sutured in ER) with prepatellar swelling, Left elbow with questionable fracture of the radial neck admitted to regular nursing floor for pain management consult placed wound care nurse for dressing changes also did consult orthopedic surgery (patient to follow-up with Ortho as outpatient). Patient is on Eliquis held on admission. Eliquis was resumed on discharge. 2. Paroxysmal atrial fibrillation ~Rate controlled on metoprolol on systemic anticoagulation with Eliquis which was held due to above; resumed on discharge 3. Sick sinus syndrome ~status post pacemaker placement 4. Essential hypertension ~Did continue with patient home medications with plans for adjustment of doses if needed 5. Dyslipidemia ~patient is on statin therapy did continue 6. Hypothyroidism ~Patient is on levothyroxine did continue 7. Microscopic colitis ~currently asymptomatic 8. DVT prophylaxis ~ Patient was on Eliquis prior to coming in which was held in view of above results Patient Problems: Active and Suspected Problems (Last Reviewed 12/27/18 @ 14:21 by Elda Shafer) Knee laceration (Acute) Fracture of metacarpal base, first, right hand, closed (Acute) Periorbital edema of left eye (Acute) Objective: GENERAL: cooperative HEENT: Bruising left side of the face EYES; Anicteric, left subconjunctival hemorrhage NECK; supple, normal thyroid, RESPIRATORY: Diminished to auscultation CARDIOVASCULAR: Irregular S1-S2 GI: soft, non-tender, normoactive bowel sounds, : No Renal angle tenderness; EXTREMITIES: Right upper extremity immobilized. MUSCULOSKELETAL: Tenderness left thigh NEURO: Awake; no lateralizing signs. SKIN: skin tears upper extremity - Physical Exam Vital Signs Temp Pulse Resp BP Pulse Ox 98 F 70 20 H 130/83 H 99 06/03/19 02:33 06/03/19 02:33 06/03/19 02:33 06/03/19 02:33 06/03/19 02:33 Oxygen Delivery Method Room Air Weight: 61.235 kg Body Mass Index (BMI) 18.8 Intake and Output for Last 24 Hours 06/01/19 06/02/19 06/03/19 23:59 23:59 23:59 Intake Total 1250 / 1250 50 / 50 Balance 1250 / 1250 50 / 50 Laboratory Tests Past 24 Hrs 06/02/19 06/02/19 06/03/19 06:53 06:53 05:45 WBC 5.6 5.6 RBC 3.59 L 3.48 L Hgb 10.9 L 10.7 L Hct 34.4 L 32.2 L MCV 95.8 92.5 MCH 30.4 30.7 MCHC 31.7 L 33.2 RDW Std Deviation 49.0 H 45.9 H RDW Coeff of Radha 13.7 13.5 Plt Count 157 174 MPV 10.2 10.5 Immature Gran % (Auto) 0.700 0.900 Neut % (Auto) 61.5 64.8 Lymph % (Auto) 19.1 17.6 L [place] % (Auto) 9.2 8.2 Eos % (Auto) 8.1 H 7.2 H Baso % (Auto) 1.4 H 1.3 H Absolute Neuts (auto) 3.4 3.6 Absolute Lymphs (auto) 1.06 0.98 Nucleated RBC % 0 0 Sodium 137 Potassium 4.2 Chloride 109 H Carbon Dioxide 26.0 Anion Gap 2 L BUN 21 H Creatinine 0.70 Estim Creat Clear Calc 41.21 Est GFR (MDRD) Af Amer 103 Est GFR (MDRD) Non-Af 85 BUN/Creatinine Ratio 30.0 H Glucose 83 Calcium 8.4 L 06/03/19 05:45 WBC RBC Hgb Hct MCV MCH MCHC RDW Std Deviation RDW Coeff of Radha Plt Count MPV Immature Gran % (Auto) Neut % (Auto) Lymph % (Auto) [place] % (Auto) Eos % (Auto) Baso % (Auto) Absolute Neuts (auto) Absolute Lymphs (auto) Nucleated RBC % Sodium 136 Potassium 4.2 Chloride 105 Carbon Dioxide 27.0 Anion Gap 4 L BUN 15 Creatinine 0.68 Estim Creat Clear Calc 41.21 Est GFR (MDRD) Af Amer 106 Est GFR (MDRD) Non-Af 88 BUN/Creatinine Ratio 22.0 H Glucose 87 Calcium 8.9 Discharge Diet: No Restrictions Discharge Activity: Return to Normal Activity Home Medications: Medications to take at Discharge Simvastatin [Zocor] 20 mg PO QHS 11/11/13 FA/Mv,Ca,Iron,Min/Lycopene/Lut [Centravites Tablet] 1 ea PO DAILY #0 10/31/14 apixaban 2.5 mg tablet 2.5 mg PO BID #180 tab 09/29/17 biotin 1 mg capsule 1 mg PO DAILY 06/29/18 Calcium Carb/Mag Ox/Zinc Sulf [Cvs Mrdbbsf-Gyohgdaol-Deo Cplt] 1 tab PO DAILY 05/30/19 Cholecalciferol (Vitamin D3) [D3-2000] 2,000 unit PO DAILY 05/30/19 Levothyroxine Sodium 100 mcg PO DAILY 05/30/19 Metoprolol Tartrate [Lopressor (beta krystina)] 12.5 mg PO BID 05/30/19 Acetaminophen [Tylenol Tablet] 650 mg PO Q6H PRN PRN tab 06/03/19 Melatonin 3 mg PO QHS PRN PRN tab 06/03/19 Meloxicam [Mobic] 7.5 mg PO DAILY tab 06/03/19 Primary Care Physician: Rod Ochoa Chi, MD [Primary Care Provider] - Please follow up with your Primary Care Physician in: in 1-2 weeks Please Follow Up With: Ariel Hodge DO When: in 1-2 weeks Disposition: Home Minutes spent on discharge:: 35 Patient Condition:: Stable Medical Necessity - Tobacco Use Smoking Status: Never smoker Tobacco Use: Non-smoker Meaningful Use Info Meaningful Use Diagnoses (Choose all that apply): None applicable Code Visit Inpatient E&M: 47811 Disch Hosp
--- NOTE | 2019-06-03 07:17 | PCM.TXEXTCAR ---
- Diet 05/30/19 17:27 Diet: Cardiac/Low Cholesterol Type of Dietary Supplement:: Ensure Clear - Routine Orders/Code Status Code Status: DNC-A - Wound(s) left eye Wound Type: Abrasion left elbow Wound Type: Skin Tear Dressing Change: Adaptic left knee Wound Type: Skin Tear Dressing Change: Adaptic - Therapies Physical Therapy: Eval and Treat Occupational Therapy: Eval and Treat - Allergies/Procedures Done in Hospital Allergies/Adverse Reactions: Allergies latex Adverse Reaction (Verified 05/30/19 11:33) Itching sulfamethoxazole [From Bactrim] Adverse Reaction (Verified 05/30/19 11:33) Nausea trimethoprim [From Bactrim] Adverse Reaction (Verified 05/30/19 11:33) Nausea - Type of Care/Length of Stay Estimated LOS: Convalescent Care Less Than 30 days Type of Care Needed: Skilled Rehab Potential: Good Prognosis: Good - Additional Orders/Day of Discharge Day of Discharge: 06/03/19 - Dietary and Speech Recommendations Dietitian Recommendations/Changes: Continue supplementation of Ensure Clear at meals. - Follow Up Care Primary Care Physician: Rod Ochoa Chi, MD [Primary Care Provider] - Please follow up with your Primary Care Physician in: in 1-2 weeks
[2019-06-03 08:58] VITALS: PULSE 70
[2019-06-03] MEDS: Metoprolol Tartrate 25 MG Tablet 12.5 MG PO (08:58)
[2019-06-03] MEDS: Meloxicam 7.5 MG Tablet PO (08:59)
[2019-06-03] MEDS: Acetaminophen 325 MG Tablet 650 MG PO (09:01)
[2019-06-03 09:12] VITALS: BP 153/77; PULSE 70; RESP 16; TEMP 36.4; O2SAT 100
--- NOTE | 2019-06-03 10:37 | NURSING ---
pt transfered to [facility] via [facility]
== END 2019-06-03 10:45 | disposition skilled nursing facility (03) | DRG 989 ==
LOC: ED 12:20 → MS3 16:30
PROVIDERS: Physician Assistant; Admitting Provider Internal Medicine; Emergency Provider Emergency Medicine; Family Provider Family Medicine Geriatric Medicine; PCP Family Medicine Geriatric Medicine; Visit Provider Internal Medicine
DX: S06.0X0A Concussion without loss of consciousness, initial encounter (principal); S62.231A Other displaced fracture of base of first metacarpal bone, right hand, initial encounter for closed fracture; S81.012A Laceration without foreign body, left knee, initial encounter; S01.112A Laceration without foreign body of left eyelid and periocular area, initial encounter; S51.012A Laceration without foreign body of left elbow, initial encounter; M25.422 Effusion, left elbow; I48.0 Paroxysmal atrial fibrillation; Z95.0 Presence of cardiac pacemaker; I49.5 Sick sinus syndrome; I10 Essential (primary) hypertension; E78.5 Hyperlipidemia, unspecified; E89.0 Postprocedural hypothyroidism; K52.839 Microscopic colitis, unspecified; W01.0XXA Fall on same level from slipping, tripping and stumbling without subsequent striking against object, initial encounter; Y93.89 Activity, other specified; Y92.538 Other ambulatory health services establishments as the place of occurrence of the external cause; Y99.8 Other external cause status; R60.0 Localized edema; I34.0 Nonrheumatic mitral (valve) insufficiency; J45.20 Mild intermittent asthma, uncomplicated; I87.2 Venous insufficiency (chronic) (peripheral); Z79.890 Hormone replacement therapy; Z79.02 Long term (current) use of antithrombotics/antiplatelets; Z66 Do not resuscitate
CPT/HCPCS: 36415; 70450; 73080; 73130; 73564; 80048; 83735; 85025; 85027; 97110; 97116; 97162; 97166; 97530; 97535; 97802; 99285

== ENCOUNTER 2019-06-03 10:45 | Inpatient (IN) | payer MEDICARE, OTHER, SELFPAY ==
[2019-05-30 17:29] VITALS: BMI 18.8
[2019-06-03 11:18] VITALS: BP 136/79; PULSE 70; RESP 16; TEMP 36.4; O2SAT 99
[2019-06-03 11:56] VITALS: BMI 21.4
[2019-06-03 11:59] VITALS: BMI 21.4
--- NOTE | 2019-06-03 14:56 | PCM.HP.STD ---
Problem List (1) Debility Status: Acute (2) Fall Status: Acute (3) Atrial fibrillation Status: Chronic (4) Hypertension Status: Chronic (5) Hypothyroidism Status: Chronic (6) Closed head injury Status: Acute (7) Concussion Status: Acute (8) Knee laceration Status: Acute (9) Fracture of metacarpal base, first, right hand, closed Status: Acute (10) Microscopic colitis Status: Chronic (11) Hyperlipidemia Status: Chronic Qualifiers: History of Present Illness Date of Admission: 06/03/19 Chief Complaint: Here for rehabilitation, strengthening, prior to discharge home alone. The patient is a 84 year old Female with below past medical history presented to [facility] Emergency Department 05/30/2019 with fall, left forehead injury, right hand, left elbow, left knee with laceration. 05/30/2019 CT brain chronic involutional changes of brain, moderate hematoma left eye. 05/30/2019 X-ray left elbow nondisplaced radial neck fracture. 05/30/2019 X-ray right hand, arthritis, nondisplaced transverse fracture base first metatarsal. 05/30/2019 X-ray left knee s/p total knee replacement, soft tissue swelling with laceration. Tripped over cane, fall. WBC 8, Hemoglobin 13, BMP okay. Tylenol given, Up do date Td shot. Clean wounds. Right thumb spica, short arm splint applied. 11 simple sutures to left knee laceration. 05/30/2019 Admit to Hospital. PT/OT, wound care, RICE. Hold [place]. 05/31/2019 Consult Orthopedics. 06/01/2019 Ambulate with a walker. [place] held. 06/03/2019 Admit to TCU with debility, here for rehabilitation, strengthening, prior to discharge home alone. Past Medical History Past Medical History (Chronic Problems): Chronic Problems (Last Reviewed 12/27/18 @ 14:21 by Elda Shafer) Atrial fibrillation (Chronic) Hypertension (Chronic) Hypothyroidism (Chronic) Complete heart block (Chronic) Sick sinus syndrome (Chronic) History of permanent cardiac pacemaker placement (Chronic) Slow ventricular response to a-fib 06/2009; Nonrheumatic mitral valve insufficiency (Chronic) Essential (primary) hypertension (Chronic) Acquired hypothyroidism (Chronic) History of atrial fibrillation (Chronic) on xarelto Microscopic colitis (Chronic) Mild intermittent asthma (Chronic) Ulcer of left lower extremity with fat layer exposed (Chronic) Edema leg (Chronic) Delayed wound healing (Chronic) Malnutrition (Chronic) Venous insufficiency (Chronic) Hyperlipidemia (Chronic) Medical History: Medical History (Last Reviewed 12/27/18 @ 14:21 by Elda Shafer) Personal history of colonic polyps (Acute) Z86.010 Complete heart block (Chronic) I44.2 Sick sinus syndrome (Chronic) I49.5 Nonrheumatic mitral valve insufficiency (Chronic) I34.0 Essential (primary) hypertension (Chronic) I10 Acquired hypothyroidism (Chronic) E03.9 History of atrial fibrillation (Chronic) Z86.79 on xarelto Microscopic colitis (Chronic) K52.839 Mild intermittent asthma (Chronic) J45.20 Ulcer of left lower extremity with fat layer exposed (Chronic) L97.922 Edema leg (Chronic) R60.0 Delayed wound healing (Chronic) T14.8 Malnutrition (Chronic) E46 Venous insufficiency (Chronic) Ulcer of right lower extremity with fat layer exposed (Resolved) L97.912 Hyperlipidemia (Chronic) E78.5 Anemia D64.9 Asthma J45.909 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 Allergies latex Adverse Reaction (Verified 05/30/19 11:33) Itching sulfamethoxazole [From Bactrim] Adverse Reaction (Verified 05/30/19 11:33) Nausea trimethoprim [From Bactrim] Adverse Reaction (Verified 05/30/19 11:33) Nausea Home Medications: Ambulatory Orders Medication Instructions Recorded Simvastatin [Zocor] 20 mg PO QHS 11/11/13 biotin 1 mg capsule 1 mg PO DAILY 06/29/18 Calcium Carb/Mag Ox/Zinc Sulf [Cvs 1 tab PO DAILY 05/30/19 Tlgjote-Xmudfdmkh-Gfu Cplt] Cholecalciferol (Vitamin D3) 2,000 unit PO DAILY 05/30/19 [D3-2000] Levothyroxine Sodium 100 mcg PO DAILY 05/30/19 Metoprolol Tartrate [Lopressor 12.5 mg PO BID 05/30/19 (beta krystina)] Acetaminophen [Tylenol Tablet] 650 mg PO Q6H PRN PRN tab 06/03/19 Apixaban [Eliquis] 2.5 mg PO BID 06/03/19 FA/Mv,Ca,Iron,Min/Lycopene/Lut 1 ea PO DAILY 06/03/19 [Centravites Tablet] Melatonin 3 mg PO QHS PRN PRN tab 06/03/19 Meloxicam [Mobic] 7.5 mg PO DAILY 06/03/19 Surgical History: Surgical History (Last Updated 12/27/18 @ 14:30 by Elda Shafer) History of permanent cardiac pacemaker placement (Chronic) Z95.0 Slow ventricular response to a-fib 06/2009; History of knee replacement Z96.659 History of right hip replacement Z96.641 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 Psychiatric History: No pertinent psych hx [employer] History: No pertinent [employer] history Lives: Alone Smoking Status: Never smoker Tobacco Use: Non-smoker Alcohol: None Drugs: None - *Family History Maternal Family History: Family History (Last Reviewed 05/30/19 @ 16:50 by MARY Pascual) Father CAD (coronary artery disease) Brother Cancer Brother Epilepsy History Items: No pertinent history, - - cancer, kidney disease, lung disease, cardiac disease Review of Systems Constitutional: Denies: Chills, Fever, Weight Change HEENT: Denies: Head Aches, Sinus Congestion, Sinus Drainage Cardiovascular: Denies: Chest Pain, Palpitations Respiratory: Denies: Cough, Shortness of breath at rest, Sputum production Gastrointestinal: Denies: Abdominal Pain, Nausea, Vomiting Genitourinary: Denies: Dysuria Musculoskeletal: Denies: Joint Pain, Joint Tenderness Skin: Denies: Rash, Wounds Neurological: Denies: Numbness, Tingling, Focal weakness Psychiatric: Denies: Anxiety, Depression, Homicidal Ideations, Suicidal Ideations Hematologic/ Lymphatic: Denies: Easy Bruising, Easy Bleeding VTE Information - Inpt Only VTE Present on Admission: No VTE Mechan Device Prophylaxis: Knee High HASMUKH Hose VTE Pharm Prophylaxis ordered?: No Reason prophylaxis not ordered:: Treatment Not Indicated Patient Problems: Active and Suspected Problems (Last Reviewed 12/27/18 @ 14:21 by Elda Shafer) Debility (Acute) Fall (Acute) Closed head injury (Acute) Concussion (Acute) - Physical Exam General: Alert, Oriented x3, Cooperative HEENT: Atraumatic, PERRLA, EOMI, Normocephalic, - - Bruising left face. Neck: Supple, No JVD, Negative Carotid Bruits Lungs: Clear to auscultation, Normal air movement Cardiovascular: Regular rate, No murmurs Abdomen: Bowel Sounds Present, Soft, Non Tender Extremities: No edema, Capillary Refill Less than 3 Seconds, - - Right hand,wrist splint. Skin: No rashes, - - Left knee sutures clean, dry, intact. Musculoskeletal: No Tenderness to Palpation of Joints or Extremities Neurological: Cranial nerves II-XII grossly intact Psych/Mental Status: Normal Affect, Appropriate Vital Signs Temp Pulse Resp BP Pulse Ox 97.6 F L 70 16 136/79 H 99 06/03/19 11:18 06/03/19 11:18 06/03/19 11:18 06/03/19 11:18 06/03/19 11:18 Oxygen Delivery Method Room Air Weight: 61.915 kg Body Mass Index (BMI) 21.4 Intake and Output for Last 24 Hours 06/01/19 06/02/19 06/03/19 23:59 23:59 23:59 Intake Total 360 / 360 Balance 360 / 360 Assessment/Plan All Active Problems (Last Reviewed 12/27/18 @ 14:21 by Elda Shafer) Knee laceration (Acute) Fracture of metacarpal base, first, right hand, closed (Acute) Periorbital edema of left eye (Acute) Debility (Acute) Fall (Acute) Closed head injury (Acute) Concussion (Acute) Personal history of colonic polyps (Acute) Ulcer of right lower extremity with fat layer exposed (Resolved) 84 year old female with below past medical history hospitalized after a fall, complicated by right hand fracture, left knee laceration, concussion, admitted to TCU with debility, here for rehabilitation, strengthening, prior to discharge home alone. Debility - PT/OT. Pain - Tylenol 1000MG Q6H PRN mild pain. Bowel - Miralax 17GM daily, Senna/colace 1 tablet BID PRN, Dulcolax 10MG daily PRN. Pneumonia vaccination - Administer Prevnar 13 and/or Pneumovax 23 as necessary. DVT prophylaxis - Not necessary, already on Eliquis. Hyperlipidemia - Atorvastatin 10MG QHS. Calcium deficiency - Calcium 500MG daily. Vitamin D deficiency - D3 2000IU daily. Hypothyroidism - Levothyroxine 100MCG daily. Insomnia - Melatonin 3MG QHS PRN. Osteoarthritis - Meloxicam 7.5MG daily. Atrial Fibrillation - Metoprolol 12.5MG BID, Eliquis 2.5MG BID. Nutrition - MVI daily.
[2019-06-03 16:00] VITALS: BP 107/67; PULSE 70; RESP 18; TEMP 36.7; O2SAT 98
[2019-06-03 17:10] VITALS: PULSE 70
[2019-06-03] MEDS: APIXABAN 2.5 MG TABLET PO (17:10)
[2019-06-03] MEDS: Metoprolol Tartrate 25 MG Tablet 12.5 MG PO (17:10)
[2019-06-03 17:14] VITALS: PULSE 70; RESP 16; O2SAT 96
[2019-06-03] MEDS: Atorvastatin Calcium 10 MG Tablet PO (19:27)
[2019-06-03] MEDS: Acetaminophen 500 MG Tablet 1000 MG PO (22:13)
[2019-06-03] MEDS: MELATONIN 3 MG TABLET PO (23:31)
[2019-06-04] MEDS: Levothyroxine 100 MCG Tablet PO (05:18)
[2019-06-04] MEDS: APIXABAN 2.5 MG TABLET PO ×2 (05:18→17:41)
[2019-06-04 05:19] VITALS: BP 138/71; PULSE 71
[2019-06-04] MEDS: Metoprolol Tartrate 25 MG Tablet 12.5 MG PO ×2 (05:19→17:41)
[2019-06-04] MEDS: Meloxicam 7.5 MG Tablet PO (05:19)
[2019-06-04 05:38] LABS: Absolute Lymphocyte Count 1.15 X10^3/uL (0.83-4.51); Absolute Neutrophil Count 3.7 X10^3/uL (2.0-7.7); Basophil# 0.06 X10^3/uL; Eosinophil# 0.37 X10^3/uL; Eosinophils% 6.3 % (0-5); Hematocrit 32.4 % (37-47); Hemoglobin 10.7 g/dL (12.0-15.0); Lymphocyte # 1.15 X10^3/ul (4.0); Lymphocyte % 19.6 % (19-41); Mean Corpuscular Hgb 30.6 pg (27.0-32.0); Mean Corpuscular Volume 92.6 fL (81-99); Mean Platelet Vol. 10.4 fl (6.2-12.0); Monocyte# 0.54 X10^3/uL; Monocyte% 9.2 % (0-10); NRBC Flagged by Analyzer 0 % (0-5); Neutrophil # 3.71 X10^3/uL (2.7-7.7); Neutrophil % 63.4 % (47-70); Platelet Count 179 K/mm3 (150-450); RBC Distribution Width CV 13.2 % (11.6-14.6); RBC Distribution Width SD 44.5 fl (35.1-43.9); White Blood Count 5.9 K/mm3 (4.4-11.0)
[2019-06-04 05:44] LABS: Anion Gap 7 (5-15); BUN 17 mg/dL (7-18); BUN/Creat Ratio 22.3 RATIO (10-20); Calcium,Total 8.6 mg/dL (8.5-10.1); Chloride 101 mmol/L (98-107); Creatinine, Serum 0.76 mg/dL (0.55-1.02); EST Glomerular Filtration Rate 77 mL/min (>60); Est Glom Filt Rate - Afr Amer 93 mL/min (>60); Estimated Creatinine Clearance 41.45 ml/min; Glucose 85 mg/dL (74-106); Potassium 4.2 mmol/L (3.5-5.1); Sodium Level 134 mmol/L (136-145)
--- NOTE | 2019-06-04 10:39 | PCM.PN.RX ---
<GeorgeMazin torres D - Last Filed: 06/04/19 10:39> Progress Note - Pharmacy Subjective: TCU Admission Objective: Allergies latex Adverse Reaction (Verified 05/30/19 11:33) Itching sulfamethoxazole [From Bactrim] Adverse Reaction (Verified 05/30/19 11:33) Nausea trimethoprim [From Bactrim] Adverse Reaction (Verified 05/30/19 11:33) Nausea Current Medications Generic Name Dose Route Start Last Admin Trade Name Freq PRN Reason Stop Dose Admin Acetaminophen 1,000 mg 06/03/19 15:13 06/03/19 22:13 Tylenol PO 1,000 mg Q6H PRN PRN Administration Pain Score 1-3/10 Apixaban 2.5 mg 06/03/19 18:00 06/04/19 05:18 Eliquis PO 2.5 mg BID SONIA Administration Atorvastatin Calcium 10 mg 06/03/19 22:00 06/03/19 19:27 Lipitor PO 10 mg QHS SONIA Administration Bisacodyl 10 mg 06/03/19 15:12 Dulcolax PO DAILY PRN PRN Constipation Calcium Carbonate 500 mg 06/04/19 12:00 [place] 500 PO DAILY@1200 [facility] Cholecalciferol 2,000 unit 06/04/19 06:00 06/04/19 05:18 Vitamin D PO 2,000 unit DAILY [facility] Administration Levothyroxine Sodium 100 mcg 06/04/19 06:00 06/04/19 05:18 Synthroid PO 100 mcg DAILY [facility] Administration Melatonin 3 mg 06/03/19 11:22 06/03/19 23:31 Melatonin PO 3 mg QHS PRN PRN Administration INSOMNIA Meloxicam 7.5 mg 06/04/19 06:00 06/04/19 05:19 Mobic PO 7.5 mg DAILY [facility] Administration Metoprolol Tartrate 12.5 mg 06/03/19 18:00 06/04/19 05:19 Lopressor (Beta Dorothy) PO 12.5 mg BID [facility] Administration Multivitamins/Minerals 1 tablet 06/04/19 12:00 Multivitamin With Minerals PO DAILY@1200 [facility] Polyethylene Glycol 17 gm 06/04/19 06:00 06/04/19 05:19 Miralax PO Not Given DAILY [facility] Senna/Docusate Sodium 1 tablet 06/03/19 15:12 Senokot-S, Lexis-Colace PO BID PRN PRN Constipation Tuberculin PPD 5 tu 06/11/19 10:00 Tubersol, Aplisol, Ppd ID 06/11/19 10:01 X1 ONE Problem List (Last Reviewed 12/27/18 @ 14:21 by Elda Shafer) Debility (Acute) Fall (Acute) Atrial fibrillation (Chronic) Hypertension (Chronic) Hypothyroidism (Chronic) Closed head injury (Acute) Concussion (Acute) Vital Signs Temp Pulse Resp BP Pulse Ox 98.1 F 71 16 138/71 H 96 06/03/19 16:00 06/04/19 05:19 06/03/19 17:14 06/04/19 05:19 06/03/19 17:14 Oxygen Delivery Method Room Air Weight: 61.915 kg Body Mass Index (BMI) 21.4 Sodium 134 mmol/L (136-145) L 06/04/19 05:15 Potassium 4.2 mmol/L (3.5-5.1) 06/04/19 05:15 Chloride 101 mmol/L (98-107) 06/04/19 05:15 Carbon Dioxide 26.0 mmol/L (21.0-32.0) 06/04/19 05:15 Anion Gap 7 (5-15) 06/04/19 05:15 BUN 17 mg/dL (7-18) 06/04/19 05:15 Creatinine 0.76 mg/dL (0.55-1.02) 06/04/19 05:15 Est GFR (MDRD) Af Amer 93 mL/min (>60) 06/04/19 05:15 Est GFR (MDRD) Non-Af 77 mL/min (>60) 06/04/19 05:15 BUN/Creatinine Ratio 22.3 RATIO (10-20) H 06/04/19 05:15 Glucose 85 mg/dL (74-106) 06/04/19 05:15 Assessment/Plan: 1) Pain APAP for mild, Meloxicam. Continue to monitor prn medication use, daily pain scores. 2) HLD Atorvastatin. Continue to lipids. 3) AFib Metoprolol, apixaban. Continue to monitor BP/HR, s/s bleeding, clot. 4) Nutrition Multivitamin, CA, D. Continue to monitor clinically. 5) Hypothyroidism Continue to monitor s/s hyper/hypoglycemia. Continue to monitor s/s hyper/hypothyroidism. 6) Sleep Melatonin at HS for sleep prn. Continue to monitor prn medication use, for insomnia. Psychotropic Medications: None Unnecessary Medications: None Bowel Regimen: 7) Senna/s, PEG, prn biscodyl. Continue to monitor prn medication use. Date of Note:: 06/04/19 - Provider Comments Provider responsibility: Provider responsible to enter orders to implement recommendations <Rod Ochoa Chi - Last Filed: 06/04/19 13:03> Progress Note - Pharmacy Subjective: [] Objective: Allergies latex Adverse Reaction (Verified 05/30/19 11:33) Itching sulfamethoxazole [From Bactrim] Adverse Reaction (Verified 05/30/19 11:33) Nausea trimethoprim [From Bactrim] Adverse Reaction (Verified 05/30/19 11:33) Nausea Current Medications Generic Name Dose Route Start Last Admin Trade Name Freq PRN Reason Stop Dose Admin Acetaminophen 1,000 mg 06/03/19 15:13 06/03/19 22:13 Tylenol PO 1,000 mg Q6H PRN PRN Administration Pain Score 1-3/10 Apixaban 2.5 mg 06/03/19 18:00 06/04/19 05:18 Eliquis PO 2.5 mg BID SONIA Administration Atorvastatin Calcium 10 mg 06/03/19 22:00 06/03/19 19:27 Lipitor PO 10 mg QHS SONIA Administration Bisacodyl 10 mg 06/03/19 15:12 Dulcolax PO DAILY PRN PRN Constipation Calcium Carbonate 500 mg 06/04/19 12:00 06/04/19 11:52 Os-[place] 500 PO 500 mg DAILY@1200 SONIA Administration Cholecalciferol 2,000 unit 06/04/19 06:00 06/04/19 05:18 Vitamin D PO 2,000 unit DAILY SONIA Administration Levothyroxine Sodium 100 mcg 06/04/19 06:00 06/04/19 05:18 Synthroid PO 100 mcg DAILY SONIA Administration Melatonin 3 mg 06/03/19 11:22 06/03/19 23:31 Melatonin PO 3 mg QHS PRN PRN Administration INSOMNIA Meloxicam 7.5 mg 06/04/19 06:00 06/04/19 05:19 Mobic PO 7.5 mg DAILY SONIA Administration Metoprolol Tartrate 12.5 mg 06/03/19 18:00 06/04/19 05:19 Lopressor (Beta Dorothy) PO 12.5 mg BID SONIA Administration Multivitamins/Minerals 1 tablet 06/04/19 12:00 06/04/19 11:52 Multivitamin With Minerals PO 1 tablet DAILY@1200 SONIA Administration Polyethylene Glycol 17 gm 06/04/19 06:00 06/04/19 05:19 Miralax PO Not Given DAILY SONIA Senna/Docusate Sodium 1 tablet 06/03/19 15:12 Senokot-S, Lexis-Colace PO BID PRN PRN Constipation Tuberculin PPD 5 tu 06/11/19 10:00 Tubersol, Aplisol, Ppd ID 06/11/19 10:01 X1 ONE Problem List (Last Reviewed 12/27/18 @ 14:21 by Elda Shafer) Debility (Acute) Fall (Acute) Atrial fibrillation (Chronic) Hypertension (Chronic) Hypothyroidism (Chronic) Closed head injury (Acute) Concussion (Acute) Vital Signs Temp Pulse Resp BP Pulse Ox 98.1 F 71 16 138/71 H 96 06/03/19 16:00 06/04/19 05:19 06/03/19 17:14 06/04/19 05:19 06/03/19 17:14 Oxygen Delivery Method Room Air Weight: 61.915 kg Body Mass Index (BMI) 21.4 Sodium 134 mmol/L (136-145) L 06/04/19 05:15 Potassium 4.2 mmol/L (3.5-5.1) 06/04/19 05:15 Chloride 101 mmol/L (98-107) 06/04/19 05:15 Carbon Dioxide 26.0 mmol/L (21.0-32.0) 06/04/19 05:15 Anion Gap 7 (5-15) 06/04/19 05:15 BUN 17 mg/dL (7-18) 06/04/19 05:15 Creatinine 0.76 mg/dL (0.55-1.02) 06/04/19 05:15 Est GFR (MDRD) Af Amer 93 mL/min (>60) 06/04/19 05:15 Est GFR (MDRD) Non-Af 77 mL/min (>60) 06/04/19 05:15 BUN/Creatinine Ratio 22.3 RATIO (10-20) H 06/04/19 05:15 Glucose 85 mg/dL (74-106) 06/04/19 05:15 Assessment/Plan: Psychotropic Medications: Unnecessary Medications: Bowel Regimen: - Provider Comments Provider responsibility: Provider responsible to enter orders to implement recommendations Provider Comments to Recommendations by Pharmacy: Agree
[2019-06-04] MEDS: Multivitamins,Ther W-Minerals Tablet 1 TABLET PO (11:52)
[2019-06-04] MEDS: Calcium (Elemental) 500 MG Tablet PO (11:52)
[2019-06-04] MEDS: Tuberculin,Purif.prot.deriv. 50 TU/ML Vial 5 ML ID (11:52)
--- NOTE | 2019-06-04 14:12 | MDS.RN ---
Pain interview for gustavo 06/04/19 completed, unable to document in the MDS per information systems instructions.
[2019-06-04] MEDS: Acetaminophen 500 MG Tablet 1000 MG PO ×2 (14:18→22:02)
--- NOTE | 2019-06-04 15:21 | CASEMGMT ---
BIMS and PHQ9 interviews completed on this date for MDS assessment. CAROLINA Doyle
--- NOTE | 2019-06-04 15:46 | CHAPLAIN ---
brief greeting; pt has a couple of visitors with her at this time
[2019-06-04 16:00] VITALS: BP 138/67; PULSE 70; RESP 18; TEMP 37.1; O2SAT 98
[2019-06-04 17:41] VITALS: BP 138/67; PULSE 70
[2019-06-04] MEDS: Atorvastatin Calcium 10 MG Tablet PO (21:41)
[2019-06-04] MEDS: MELATONIN 3 MG TABLET PO (22:03)
--- NOTE | 2019-06-05 01:30 | NURSING ---
Addendum entered by Tabby Jackson 06/05/19 06:51: Pt stating this AM that she is feeling much better and denies nausea or a headache at this time. Addendum entered by Tabby Jackson 06/05/19 04:16: 0230: Pt c/o feeling nauseated, headache has improved since the ultram. Pt did have a small, clear amount of emesis. Pt states that she feels a little better. Assisted pt back to bed, provided cold wash cloth for head. Will continue to monitor. Original Note: Pt c/o throbbing headache, rating it a 10/10. Dr. Ochoa aware, and new order for ultram 50mg X1.
[2019-06-05] MEDS: traMADol 50 MG Tablet PO (01:38)
[2019-06-05 07:53] VITALS: PULSE 72
[2019-06-05] MEDS: APIXABAN 2.5 MG TABLET PO ×2 (07:53→17:24)
[2019-06-05] MEDS: Metoprolol Tartrate 25 MG Tablet 12.5 MG PO ×2 (07:53→17:23)
[2019-06-05] MEDS: Polyethylene Glycol 3350 17 GM PACKET PO (07:56)
[2019-06-05] MEDS: Levothyroxine 100 MCG Tablet PO (07:56)
[2019-06-05] MEDS: Meloxicam 7.5 MG Tablet PO (07:56)
[2019-06-05] MEDS: Multivitamins,Ther W-Minerals Tablet 1 TABLET PO (11:30)
[2019-06-05] MEDS: Calcium (Elemental) 500 MG Tablet PO (11:30)
[2019-06-05] MEDS: Ondansetron ODT 4 MG Tablet PO ×2 (12:24→21:14)
[2019-06-05 16:00] VITALS: BP 124/75; PULSE 69; RESP 18; TEMP 37; O2SAT 96
[2019-06-05 17:23] VITALS: PULSE 69
[2019-06-05] MEDS: Acetaminophen 500 MG Tablet 1000 MG PO (17:26)
[2019-06-05] MEDS: Atorvastatin Calcium 10 MG Tablet PO (21:14)
[2019-06-06] MEDS: traMADol 50 MG Tablet PO ×2 (00:37→10:28)
[2019-06-06] MEDS: MELATONIN 3 MG TABLET PO ×2 (00:38→22:03)
[2019-06-06] MEDS: Acetaminophen 500 MG Tablet 1000 MG PO ×3 (05:49→22:03)
[2019-06-06] MEDS: APIXABAN 2.5 MG TABLET PO ×2 (05:51→17:47)
[2019-06-06] MEDS: Levothyroxine 100 MCG Tablet PO (05:51)
[2019-06-06 05:52] VITALS: BP 135/75; PULSE 72
[2019-06-06] MEDS: Metoprolol Tartrate 25 MG Tablet 12.5 MG PO ×2 (05:52→17:48)
--- NOTE | 2019-06-06 09:28 | CASEMGMT ---
Social Work IDT met with patient and conference call with son, Obinna, for care plan meeting. Discussed patient's progress in therapy. Pt is walking 275 ft FWW CGA, LE dressing and toileting SBA-CGA for balance, min assist for bathing, transfers CGA. Pt's appetite is improving, receiving ensure. Pt has some fears about returning home alone, but has supportive neighbors, and working with son to make some changes in the home, i.e. stair lift and having a first floor set up. Pt will restart MOW and housekeeping assistance. Offered assistance with DC planning and providing resources with private duty aides. Will continue to follow. Priti Tellez, JOZEF SANDRAW
[2019-06-06] MEDS: Calcium (Elemental) 500 MG Tablet PO (11:53)
[2019-06-06] MEDS: Multivitamins,Ther W-Minerals Tablet 1 TABLET PO (11:53)
[2019-06-06 16:00] VITALS: BP 130/70; PULSE 69; RESP 16; TEMP 36.6; O2SAT 99
--- NOTE | 2019-06-06 16:12 | CHAPLAIN ---
Type of Pastoral Visit ___ Initial Visit _x__ Follow-up Visit ___ On-call Visit ___ General Patient Visit ___ Spiritual Assessment ___ Family Conference ___ Bereavement ___ Rapid Response ___ Code Blue ___ Other (describe below) Pastoral Care Referral From _x__ Patient ___ Family ___ Nurse ___ Physician ___ Pathology Supervisor ___ Mission Systems Engineer ___ Other (describe below) Sacrament/Intervention _x__ Active listening ___ Anointing ___ Jain ___ Bereavement ___ Communion ___ Mary exploration ___ _x__ Life review _x__ Prayer ___ Reconciliation ___ Sacrament of Sick ___ Supportive presence ___ Wedding ___ Other (describe below) Pastoral Comments
[2019-06-06 17:48] VITALS: BP 130/70; PULSE 69
[2019-06-06] MEDS: Atorvastatin Calcium 10 MG Tablet PO (22:03)
[2019-06-06 22:04] VITALS: O2SAT 98
[2019-06-07 06:31] VITALS: BP 127/68; PULSE 70
[2019-06-07] MEDS: Levothyroxine 100 MCG Tablet PO (06:31)
[2019-06-07] MEDS: Metoprolol Tartrate 25 MG Tablet 12.5 MG PO ×2 (06:31→17:20)
[2019-06-07] MEDS: APIXABAN 2.5 MG TABLET PO ×2 (06:31→17:20)
--- NOTE | 2019-06-07 11:36 | NURSING ---
dr Nieto's office notified of consult order for RT hand fracture of 1st metatarsal.
[2019-06-07] MEDS: Multivitamins,Ther W-Minerals Tablet 1 TABLET PO (11:57)
[2019-06-07] MEDS: Calcium (Elemental) 500 MG Tablet PO (11:57)
[2019-06-07] MEDS: Acetaminophen 500 MG Tablet 1000 MG PO ×2 (12:16→21:41)
[2019-06-07 16:00] VITALS: BP 132/68; PULSE 67; RESP 20; TEMP 36.1; O2SAT 99
[2019-06-07 17:20] VITALS: BP 132/68; PULSE 67
[2019-06-07] MEDS: traMADol 50 MG Tablet PO ×2 (17:20→23:21)
[2019-06-07] MEDS: MELATONIN 3 MG TABLET PO (21:41)
[2019-06-07] MEDS: Atorvastatin Calcium 10 MG Tablet PO (21:42)
[2019-06-08] MEDS: Acetaminophen 500 MG Tablet 1000 MG PO ×2 (04:18→12:17)
[2019-06-08 04:19] VITALS: BP 146/87; PULSE 70
[2019-06-08] MEDS: APIXABAN 2.5 MG TABLET PO ×2 (04:19→17:55)
[2019-06-08] MEDS: Metoprolol Tartrate 25 MG Tablet 12.5 MG PO ×2 (04:19→17:55)
[2019-06-08] MEDS: Levothyroxine 100 MCG Tablet PO (04:20)
[2019-06-08 10:00] VITALS: RESP 18
--- NOTE | 2019-06-08 10:27 | CASEMGMT ---
Social Work BIMS and PHQ-9 completed for MDS assessment. Priti Tellez, LEAD GAME DESIGNER PEDIATRIC ANESTHESIOLOGIST
[2019-06-08] MEDS: Multivitamins,Ther W-Minerals Tablet 1 TABLET PO (12:18)
[2019-06-08] MEDS: Calcium (Elemental) 500 MG Tablet PO (12:18)
[2019-06-08 16:00] VITALS: BP 123/84; PULSE 70; RESP 16; TEMP 36.8; O2SAT 99
[2019-06-08 17:55] VITALS: PULSE 70
[2019-06-08] MEDS: Atorvastatin Calcium 10 MG Tablet PO (22:49)
[2019-06-08] MEDS: traMADol 50 MG Tablet PO (22:53)
[2019-06-09] MEDS: MELATONIN 3 MG TABLET PO ×2 (01:10→23:33)
[2019-06-09] MEDS: Levothyroxine 100 MCG Tablet PO (06:52)
[2019-06-09 06:53] VITALS: BP 134/95; PULSE 72
[2019-06-09] MEDS: Metoprolol Tartrate 25 MG Tablet 12.5 MG PO ×2 (06:53→18:14)
[2019-06-09] MEDS: APIXABAN 2.5 MG TABLET PO ×2 (06:53→18:15)
--- NOTE | 2019-06-09 07:18 | NURSING ---
11 sutures removed from L knee skin tear with sterile technique. small amount of sanguineous drainage to site able to be stopped with light pressure and gauze. site cleansed with sterile saline and adaptic and ABD/kerlix applied. Patient tolerated well, denies pain when at rest.
[2019-06-09] MEDS: Multivitamins,Ther W-Minerals Tablet 1 TABLET PO (13:19)
[2019-06-09] MEDS: Calcium (Elemental) 500 MG Tablet PO (13:20)
[2019-06-09 14:17] VITALS: RESP 16
[2019-06-09 16:00] VITALS: BP 110/60; PULSE 69; RESP 19; TEMP 36.7; O2SAT 95
[2019-06-09 18:14] VITALS: BP 110/60; PULSE 69
[2019-06-09] MEDS: Atorvastatin Calcium 10 MG Tablet PO (20:19)
[2019-06-09] MEDS: traMADol 50 MG Tablet PO (23:33)
[2019-06-09] MEDS: Ondansetron ODT 4 MG Tablet PO (23:46)
[2019-06-10] MEDS: APIXABAN 2.5 MG TABLET PO ×2 (06:51→18:02)
[2019-06-10 06:52] VITALS: BP 111/67; PULSE 70
[2019-06-10] MEDS: Levothyroxine 100 MCG Tablet PO (06:52)
[2019-06-10] MEDS: Metoprolol Tartrate 25 MG Tablet 12.5 MG PO ×2 (06:52→18:02)
[2019-06-10] MEDS: Polyethylene Glycol 3350 17 GM PACKET PO (06:52)
[2019-06-10] MEDS: Calcium (Elemental) 500 MG Tablet PO (13:06)
[2019-06-10] MEDS: Multivitamins,Ther W-Minerals Tablet 1 TABLET PO (13:07)
[2019-06-10 16:00] VITALS: BP 131/64; PULSE 70; RESP 18; TEMP 36.8; O2SAT 97
[2019-06-10 18:02] VITALS: BP 131/64; PULSE 70
[2019-06-10] MEDS: Atorvastatin Calcium 10 MG Tablet PO (21:29)
[2019-06-10] MEDS: MELATONIN 3 MG TABLET PO (21:29)
[2019-06-11 05:26] VITALS: BP 120/74; PULSE 70
[2019-06-11] MEDS: Metoprolol Tartrate 25 MG Tablet 12.5 MG PO ×2 (05:26→16:26)
[2019-06-11] MEDS: Acetaminophen 500 MG Tablet 1000 MG PO ×2 (05:26→22:28)
[2019-06-11] MEDS: APIXABAN 2.5 MG TABLET PO ×2 (05:27→16:26)
[2019-06-11] MEDS: Levothyroxine 100 MCG Tablet PO (05:27)
[2019-06-11] MEDS: Polyethylene Glycol 3350 17 GM PACKET PO (05:27)
[2019-06-11 05:41] LABS: Absolute Lymphocyte Count 1.02 X10^3/uL (0.83-4.51); Absolute Neutrophil Count 8.2 X10^3/uL (2.0-7.7); Basophil# 0.08 X10^3/uL; Basophil% 0.7 % (0-1); Eosinophil# 0.33 X10^3/uL; Eosinophils% 3.1 % (0-5); Hematocrit 36.2 % (37-47); Hemoglobin 12.2 g/dL (12.0-15.0); Lymphocyte # 1.02 X10^3/ul (4.0); Lymphocyte % 9.5 % (19-41); Mean Corp Hgb Conc 33.7 g/dL (32-36); Mean Corpuscular Hgb 31.2 pg (27.0-32.0); Mean Corpuscular Volume 92.6 fL (81-99); Mean Platelet Vol. 9.9 fl (6.2-12.0); Monocyte# 1.08 X10^3/uL; NRBC Flagged by Analyzer 0 % (0-5); Neutrophil # 8.15 X10^3/uL (2.7-7.7); Neutrophil % 75.5 % (47-70); Platelet Count 204 K/mm3 (150-450); RBC Distribution Width CV 13.8 % (11.6-14.6); RBC Distribution Width SD 46.1 fl (35.1-43.9); Red Blood Count 3.91 M/mm3 (4.2-5.4); White Blood Count 10.8 K/mm3 (4.4-11.0)
[2019-06-11 05:58] LABS: Anion Gap 8 (5-15); BUN 15 mg/dL (7-18); Calcium,Total 8.7 mg/dL (8.5-10.1); Chloride 99 mmol/L (98-107); Creatinine, Serum 0.75 mg/dL (0.55-1.02); EST Glomerular Filtration Rate 79 mL/min (>60); Est Glom Filt Rate - Afr Amer 95 mL/min (>60); Estimated Creatinine Clearance 41.45 ml/min; Glucose 92 mg/dL (74-106); Potassium 4.5 mmol/L (3.5-5.1); Sodium Level 134 mmol/L (136-145)
[2019-06-11] MEDS: Multivitamins,Ther W-Minerals Tablet 1 TABLET PO (10:45)
[2019-06-11] MEDS: Calcium (Elemental) 500 MG Tablet PO (10:45)
[2019-06-11] MEDS: Tuberculin,Purif.prot.deriv. 50 TU/ML Vial 5 ML ID (10:45)
[2019-06-11 16:00] VITALS: BP 112/57; PULSE 70; RESP 18; TEMP 36.5; O2SAT 99
[2019-06-11 16:26] VITALS: PULSE 70
[2019-06-11] MEDS: Atorvastatin Calcium 10 MG Tablet PO (20:30)
[2019-06-11] MEDS: MELATONIN 3 MG TABLET PO (22:27)
[2019-06-12] MEDS: Ondansetron ODT 4 MG Tablet PO (01:33)
[2019-06-12 06:33] VITALS: BP 141/78; PULSE 70
[2019-06-12] MEDS: APIXABAN 2.5 MG TABLET PO ×2 (06:33→16:44)
[2019-06-12] MEDS: Polyethylene Glycol 3350 17 GM PACKET PO (06:33)
[2019-06-12] MEDS: Levothyroxine 100 MCG Tablet PO (06:33)
[2019-06-12] MEDS: Metoprolol Tartrate 25 MG Tablet 12.5 MG PO ×2 (06:33→16:44)
--- NOTE | 2019-06-12 11:12 | NURSING ---
In to assess the skin tears to the left elbow and the left knee. Pt had taken a shower and the dressings had just been changed by SARA Hatfield. did not want to waste wound care supplies, so this nurse will assess them tomorrow. Alysia, states there is no active bleeding from the left knee today. pt denies needs at this time.
[2019-06-12] MEDS: Calcium (Elemental) 500 MG Tablet PO (11:15)
[2019-06-12] MEDS: Acetaminophen 500 MG Tablet 1000 MG PO (11:15)
[2019-06-12] MEDS: Multivitamins,Ther W-Minerals Tablet 1 TABLET PO (11:15)
[2019-06-12 15:57] VITALS: BP 108/65; PULSE 70; RESP 16; TEMP 36.4; O2SAT 98
[2019-06-12 16:44] VITALS: PULSE 76
[2019-06-12] MEDS: Atorvastatin Calcium 10 MG Tablet PO (19:45)
[2019-06-13] MEDS: Acetaminophen 500 MG Tablet 1000 MG PO ×2 (01:38→21:31)
[2019-06-13 06:44] VITALS: BP 141/74; PULSE 87
[2019-06-13] MEDS: APIXABAN 2.5 MG TABLET PO ×2 (06:44→17:55)
[2019-06-13] MEDS: Levothyroxine 100 MCG Tablet PO (06:44)
[2019-06-13] MEDS: Metoprolol Tartrate 25 MG Tablet 12.5 MG PO ×2 (06:44→17:56)
--- NOTE | 2019-06-13 09:10 | NURSING ---
Pt had showered again this am. SARA Smith had changed the dressings to the left elbow and the left knee already. SARA Smith states there is very minimal bleeding from the left knee skin tear and the left elbow skin tear is starting to scab over. Did not remove the dressings at this time. wound care consult can be discontinued. was consulted d/t the left knee bleeding.
--- NOTE | 2019-06-13 11:52 | MDS.RN ---
Information for the mds was obtained from review of the clinical record, interview of resident, staff, and direct observation of resident's care.
[2019-06-13] MEDS: Multivitamins,Ther W-Minerals Tablet 1 TABLET PO (11:59)
[2019-06-13] MEDS: Calcium (Elemental) 500 MG Tablet PO (11:59)
[2019-06-13 15:38] VITALS: BP 125/72; PULSE 70; RESP 16; TEMP 36.6; O2SAT 96
[2019-06-13 17:56] VITALS: BP 125/72; PULSE 70
[2019-06-13] MEDS: MELATONIN 3 MG TABLET PO (21:21)
[2019-06-13] MEDS: Atorvastatin Calcium 10 MG Tablet PO (21:21)
[2019-06-14 06:49] VITALS: BP 129/72; PULSE 70
[2019-06-14] MEDS: Polyethylene Glycol 3350 17 GM PACKET PO (06:49)
[2019-06-14] MEDS: APIXABAN 2.5 MG TABLET PO ×2 (06:49→17:08)
[2019-06-14] MEDS: Levothyroxine 100 MCG Tablet PO (06:49)
[2019-06-14] MEDS: Metoprolol Tartrate 25 MG Tablet 12.5 MG PO ×2 (06:49→17:09)
[2019-06-14] MEDS: Calcium (Elemental) 500 MG Tablet PO (13:02)
[2019-06-14] MEDS: Multivitamins,Ther W-Minerals Tablet 1 TABLET PO (13:02)
[2019-06-14] MEDS: Acetaminophen 500 MG Tablet 1000 MG PO ×2 (13:04→21:45)
[2019-06-14 15:54] VITALS: BP 124/68; PULSE 76; RESP 20; TEMP 36.7; O2SAT 98
[2019-06-14 17:09] VITALS: BP 114/60; PULSE 72
[2019-06-14] MEDS: MELATONIN 3 MG TABLET PO (21:45)
[2019-06-14] MEDS: Atorvastatin Calcium 10 MG Tablet PO (21:46)
[2019-06-15] MEDS: Levothyroxine 100 MCG Tablet PO (04:19)
[2019-06-15] MEDS: APIXABAN 2.5 MG TABLET PO ×2 (04:19→17:30)
[2019-06-15] MEDS: Acetaminophen 500 MG Tablet 1000 MG PO ×2 (04:19→21:23)
[2019-06-15 04:20] VITALS: BP 148/69; PULSE 70
[2019-06-15] MEDS: Metoprolol Tartrate 25 MG Tablet 12.5 MG PO ×2 (04:20→17:30)
[2019-06-15] MEDS: Multivitamins,Ther W-Minerals Tablet 1 TABLET PO (11:49)
[2019-06-15] MEDS: Calcium (Elemental) 500 MG Tablet PO (11:50)
[2019-06-15 16:00] VITALS: BP 106/61; PULSE 70; RESP 18; TEMP 37.1; O2SAT 97
[2019-06-15 17:30] VITALS: BP 106/61; PULSE 70
[2019-06-15] MEDS: MELATONIN 3 MG TABLET PO (21:20)
[2019-06-15] MEDS: Atorvastatin Calcium 10 MG Tablet PO (21:21)
[2019-06-16] MEDS: Acetaminophen 500 MG Tablet 1000 MG PO ×2 (04:39→12:19)
[2019-06-16 04:47] VITALS: BP 120/72; PULSE 70
[2019-06-16] MEDS: Levothyroxine 100 MCG Tablet PO (04:47)
[2019-06-16] MEDS: APIXABAN 2.5 MG TABLET PO ×2 (04:47→17:38)
[2019-06-16] MEDS: Metoprolol Tartrate 25 MG Tablet 12.5 MG PO ×2 (04:47→17:38)
[2019-06-16 09:40] VITALS: PULSE 72; RESP 16
[2019-06-16] MEDS: Calcium (Elemental) 500 MG Tablet PO (12:07)
[2019-06-16] MEDS: Multivitamins,Ther W-Minerals Tablet 1 TABLET PO (12:07)
--- NOTE | 2019-06-16 12:41 | NURSING ---
Pt to f/u with dr. thompson as outpt regarding right wrist
[2019-06-16 15:55] VITALS: PULSE 68; RESP 18; TEMP 36.3; O2SAT 97
[2019-06-16 17:38] VITALS: BP 124/58; PULSE 68
[2019-06-16] MEDS: Atorvastatin Calcium 10 MG Tablet PO (22:01)
[2019-06-16] MEDS: MELATONIN 3 MG TABLET PO (22:01)
[2019-06-17 06:31] VITALS: BP 145/75; PULSE 69
[2019-06-17] MEDS: Metoprolol Tartrate 25 MG Tablet 12.5 MG PO ×2 (06:31→17:00)
[2019-06-17] MEDS: Levothyroxine 100 MCG Tablet PO (06:31)
[2019-06-17] MEDS: APIXABAN 2.5 MG TABLET PO ×2 (06:32→17:00)
[2019-06-17] MEDS: Calcium (Elemental) 500 MG Tablet PO (11:25)
[2019-06-17] MEDS: Multivitamins,Ther W-Minerals Tablet 1 TABLET PO (11:25)
[2019-06-17 15:16] VITALS: BP 122/52; PULSE 70; RESP 18; TEMP 37.3; O2SAT 97
[2019-06-17 17:00] VITALS: BP 122/52; PULSE 70
[2019-06-17] MEDS: MELATONIN 3 MG TABLET PO (22:01)
[2019-06-17] MEDS: Atorvastatin Calcium 10 MG Tablet PO (22:01)
[2019-06-17] MEDS: traMADol 50 MG Tablet PO (22:07)
[2019-06-18 05:45] LABS: Absolute Lymphocyte Count 1.16 X10^3/uL (0.83-4.51); Absolute Neutrophil Count 3.7 X10^3/uL (2.0-7.7); Basophil# 0.09 X10^3/uL; Basophil% 1.5 % (0-1); Eosinophils% 6.5 % (0-5); Hematocrit 34.9 % (37-47); Hemoglobin 11.9 g/dL (12.0-15.0); Lymphocyte # 1.16 X10^3/ul (4.0); Mean Corp Hgb Conc 34.1 g/dL (32-36); Mean Corpuscular Hgb 32.2 pg (27.0-32.0); Mean Corpuscular Volume 94.6 fL (81-99); Mean Platelet Vol. 9.8 fl (6.2-12.0); Monocyte# 0.68 X10^3/uL; Monocyte% 11.1 % (0-10); NRBC Flagged by Analyzer 0 % (0-5); Neutrophil # 3.72 X10^3/uL (2.7-7.7); Neutrophil % 60.9 % (47-70); Platelet Count 217 K/mm3 (150-450); RBC Distribution Width CV 14.4 % (11.6-14.6); RBC Distribution Width SD 49.5 fl (35.1-43.9); Red Blood Count 3.69 M/mm3 (4.2-5.4); White Blood Count 6.1 K/mm3 (4.4-11.0)
[2019-06-18 05:48] LABS: Anion Gap 6 (5-15); BUN 23 mg/dL (7-18); Calcium,Total 8.9 mg/dL (8.5-10.1); Chloride 104 mmol/L (98-107); Creatinine, Serum 0.79 mg/dL (0.55-1.02); EST Glomerular Filtration Rate 74 mL/min (>60); Est Glom Filt Rate - Afr Amer 89 mL/min (>60); Estimated Creatinine Clearance 41.07 ml/min; Glucose 80 mg/dL (74-106); Potassium 4.9 mmol/L (3.5-5.1); Sodium Level 139 mmol/L (136-145)
[2019-06-18 05:58] VITALS: BP 110/53; PULSE 71
[2019-06-18] MEDS: Levothyroxine 100 MCG Tablet PO (05:58)
[2019-06-18] MEDS: Metoprolol Tartrate 25 MG Tablet 12.5 MG PO ×2 (05:58→17:05)
[2019-06-18] MEDS: APIXABAN 2.5 MG TABLET PO ×2 (05:59→17:05)
--- NOTE | 2019-06-18 07:21 | MDS.RN ---
IPA MDS assessment completed on 06/18/19, waiting to finalize assessment per [facility] information systems. Information for the mds obtained from review of the clinical record, interview of resident, staff, and direct observation of resident's care.
[2019-06-18] MEDS: Cephalexin 250 MG Capsule PO ×3 (10:41→21:10)
[2019-06-18] MEDS: Calcium (Elemental) 500 MG Tablet PO (11:27)
[2019-06-18] MEDS: Multivitamins,Ther W-Minerals Tablet 1 TABLET PO (11:28)
[2019-06-18 15:41] VITALS: PULSE 64; RESP 17; TEMP 36.6; O2SAT 113
[2019-06-18 17:05] VITALS: PULSE 64
[2019-06-18] MEDS: MELATONIN 3 MG TABLET PO (21:10)
[2019-06-18] MEDS: Atorvastatin Calcium 10 MG Tablet PO (21:10)
[2019-06-18] MEDS: Acetaminophen 500 MG Tablet 1000 MG PO (22:00)
[2019-06-19] MEDS: Acetaminophen 500 MG Tablet 1000 MG PO ×2 (06:10→22:05)
[2019-06-19 06:11] VITALS: BP 125/62; PULSE 70
[2019-06-19] MEDS: APIXABAN 2.5 MG TABLET PO ×2 (06:11→17:03)
[2019-06-19] MEDS: Cephalexin 250 MG Capsule PO ×3 (06:11→21:05)
[2019-06-19] MEDS: Levothyroxine 100 MCG Tablet PO (06:11)
[2019-06-19] MEDS: Metoprolol Tartrate 25 MG Tablet 12.5 MG PO ×2 (06:11→17:03)
--- NOTE | 2019-06-19 09:27 | NURSING ---
pt had shower with staff assist, Drsg done to LT knee and LT elbow per orders. healing well, LT knee less red, slightly pink, on Keflex.
[2019-06-19] MEDS: Multivitamins,Ther W-Minerals Tablet 1 TABLET PO (11:58)
[2019-06-19] MEDS: Calcium (Elemental) 500 MG Tablet PO (11:58)
[2019-06-19 15:36] VITALS: BP 108/56; PULSE 70; RESP 18; TEMP 37.1; O2SAT 100
[2019-06-19 17:03] VITALS: PULSE 70
[2019-06-19] MEDS: MELATONIN 3 MG TABLET PO (21:05)
[2019-06-19] MEDS: Atorvastatin Calcium 10 MG Tablet PO (21:05)
[2019-06-19 21:08] VITALS: O2SAT 97
[2019-06-20] MEDS: APIXABAN 2.5 MG TABLET PO ×2 (05:46→17:59)
[2019-06-20 05:47] VITALS: BP 135/75; PULSE 70
[2019-06-20] MEDS: Levothyroxine 100 MCG Tablet PO (05:47)
[2019-06-20] MEDS: Metoprolol Tartrate 25 MG Tablet 12.5 MG PO ×2 (05:47→18:00)
[2019-06-20] MEDS: Cephalexin 250 MG Capsule PO ×3 (05:47→21:13)
[2019-06-20] MEDS: Calcium (Elemental) 500 MG Tablet PO (11:14)
[2019-06-20] MEDS: Multivitamins,Ther W-Minerals Tablet 1 TABLET PO (11:14)
[2019-06-20 11:26] VITALS: PULSE 18; RESP 18; O2SAT 97
[2019-06-20 16:00] VITALS: BP 94/50; PULSE 70; RESP 18; TEMP 36.4; O2SAT 99
[2019-06-20 18:00] VITALS: BP 106/56; PULSE 69
[2019-06-20] MEDS: MELATONIN 3 MG TABLET PO (21:13)
[2019-06-20] MEDS: Atorvastatin Calcium 10 MG Tablet PO (21:13)
[2019-06-21 06:22] VITALS: BP 128/62; PULSE 70
[2019-06-21] MEDS: Metoprolol Tartrate 25 MG Tablet 12.5 MG PO ×2 (06:22→16:53)
[2019-06-21] MEDS: Cephalexin 250 MG Capsule PO ×3 (06:23→21:08)
[2019-06-21] MEDS: APIXABAN 2.5 MG TABLET PO ×2 (06:23→16:53)
[2019-06-21] MEDS: Levothyroxine 100 MCG Tablet PO (06:24)
[2019-06-21] MEDS: Calcium (Elemental) 500 MG Tablet PO (11:27)
[2019-06-21] MEDS: Multivitamins,Ther W-Minerals Tablet 1 TABLET PO (11:27)
[2019-06-21 16:00] VITALS: BP 113/60; PULSE 70; RESP 18; TEMP 37; O2SAT 98
[2019-06-21 16:53] VITALS: BP 113/60; PULSE 70
[2019-06-21] MEDS: Atorvastatin Calcium 10 MG Tablet PO (21:08)
[2019-06-21] MEDS: MELATONIN 3 MG TABLET PO (21:08)
[2019-06-22] MEDS: APIXABAN 2.5 MG TABLET PO ×2 (05:40→17:11)
[2019-06-22] MEDS: Cephalexin 250 MG Capsule PO ×3 (05:40→22:17)
[2019-06-22 05:41] VITALS: BP 129/66; PULSE 70
[2019-06-22] MEDS: Metoprolol Tartrate 25 MG Tablet 12.5 MG PO ×2 (05:41→17:10)
[2019-06-22] MEDS: Levothyroxine 100 MCG Tablet PO (05:41)
--- NOTE | 2019-06-22 08:34 | RAD_ITS ---
STUDY: X-RAY - RIGHT HAND REASON FOR EXAM: Female, 84 years old. Continued pain. Follow-up for transverse fracture at the base of the first metacarpal. TECHNIQUE: 2 view(s) of the hand. COMPARISON: Comparison is made with prior examination dated May 30, 2019. FINDINGS: There is joint space narrowing of the radiocarpal articulation consistent with degenerative arthrosis. Normal distal radioulnar joint. There is diffuse demineralization of the carpal bones. 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 Normal second through fifth carpometacarpal joints. Healing fracture at the base of the first metacarpal. The alignment is maintained. Normal metacarpophalangeal joint of the thumb. Normal interphalangeal joint of the thumb. Normal proximal and distal phalanges of the thumb. Normal metacarpophalangeal joints of the second through fifth fingers. There is diffuse articular joint space narrowing of the proximal and distal interphalangeal joints of the second through fifth fingers, but without erosive changes or periarticular soft tissue swelling. Normal phalanges of the second through fifth fingers. Residual soft tissue swelling. RAD/Hand 2 Views IMPRESSION: Healing fracture at the base of the first metacarpal with continued mild soft tissue swelling. Electronically Signed: Reji Ramírez, at 9:40 EDT , Service support ,
[2019-06-22] MEDS: Calcium (Elemental) 500 MG Tablet PO (11:44)
[2019-06-22] MEDS: Multivitamins,Ther W-Minerals Tablet 1 TABLET PO (11:44)
[2019-06-22 16:00] VITALS: BP 100/65; PULSE 70; RESP 17; TEMP 36.3; O2SAT 98
[2019-06-22 17:10] VITALS: PULSE 70
[2019-06-22] MEDS: Acetaminophen 500 MG Tablet 1000 MG PO (22:17)
[2019-06-22] MEDS: MELATONIN 3 MG TABLET PO (22:18)
[2019-06-22] MEDS: Atorvastatin Calcium 10 MG Tablet PO (22:18)
[2019-06-23] MEDS: traMADol 50 MG Tablet PO ×2 (03:52→22:34)
[2019-06-23 06:32] VITALS: BP 120/77; PULSE 71
[2019-06-23] MEDS: Metoprolol Tartrate 25 MG Tablet 12.5 MG PO ×2 (06:32→17:11)
[2019-06-23] MEDS: APIXABAN 2.5 MG TABLET PO ×2 (06:33→17:10)
[2019-06-23] MEDS: Levothyroxine 100 MCG Tablet PO (06:33)
[2019-06-23] MEDS: Cephalexin 250 MG Capsule PO ×3 (06:33→21:00)
[2019-06-23] MEDS: Acetaminophen 500 MG Tablet 1000 MG PO (11:01)
[2019-06-23] MEDS: Calcium (Elemental) 500 MG Tablet PO (11:03)
[2019-06-23] MEDS: Multivitamins,Ther W-Minerals Tablet 1 TABLET PO (11:04)
[2019-06-23 16:00] VITALS: BP 130/70; PULSE 66; RESP 18; O2SAT 96
[2019-06-23 17:11] VITALS: BP 130/70; PULSE 90
[2019-06-23] MEDS: Atorvastatin Calcium 10 MG Tablet PO (21:00)
[2019-06-23] MEDS: MELATONIN 3 MG TABLET PO (21:00)
[2019-06-24] MEDS: Acetaminophen 500 MG Tablet 1000 MG PO ×2 (01:53→10:38)
[2019-06-24 05:55] VITALS: BP 131/74; PULSE 71
[2019-06-24] MEDS: APIXABAN 2.5 MG TABLET PO ×2 (05:55→17:32)
[2019-06-24] MEDS: Metoprolol Tartrate 25 MG Tablet 12.5 MG PO ×2 (05:55→17:31)
[2019-06-24] MEDS: Levothyroxine 100 MCG Tablet PO (05:55)
[2019-06-24] MEDS: Cephalexin 250 MG Capsule PO ×3 (05:55→22:21)
[2019-06-24] MEDS: Calcium (Elemental) 500 MG Tablet PO (11:39)
[2019-06-24] MEDS: Multivitamins,Ther W-Minerals Tablet 1 TABLET PO (11:40)
[2019-06-24 15:34] VITALS: BP 145/74; PULSE 70; RESP 18; TEMP 36.4; O2SAT 99
[2019-06-24 17:31] VITALS: BP 145/74; PULSE 70
[2019-06-24] MEDS: traMADol 50 MG Tablet PO (22:20)
[2019-06-24] MEDS: MELATONIN 3 MG TABLET PO (22:21)
[2019-06-24] MEDS: Atorvastatin Calcium 10 MG Tablet PO (22:21)
[2019-06-25 05:22] VITALS: BP 133/81; PULSE 71
[2019-06-25] MEDS: Metoprolol Tartrate 25 MG Tablet 12.5 MG PO ×2 (05:22→17:39)
[2019-06-25] MEDS: Levothyroxine 100 MCG Tablet PO (05:22)
[2019-06-25] MEDS: Cephalexin 250 MG Capsule PO (05:22)
[2019-06-25] MEDS: APIXABAN 2.5 MG TABLET PO ×2 (05:22→17:38)
[2019-06-25 05:50] LABS: Absolute Lymphocyte Count 1.11 X10^3/uL (0.83-4.51); Absolute Neutrophil Count 3.4 X10^3/uL (2.0-7.7); Basophil# 0.07 X10^3/uL; Basophil% 1.2 % (0-1); Eosinophil# 0.52 X10^3/uL; Eosinophils% 9.1 % (0-5); Hematocrit 33.8 % (37-47); Hemoglobin 11.2 g/dL (12.0-15.0); Lymphocyte # 1.11 X10^3/ul (4.0); Lymphocyte % 19.5 % (19-41); Mean Corp Hgb Conc 33.1 g/dL (32-36); Mean Corpuscular Hgb 31.6 pg (27.0-32.0); Mean Corpuscular Volume 95.5 fL (81-99); Monocyte# 0.58 X10^3/uL; Monocyte% 10.2 % (0-10); NRBC Flagged by Analyzer 0 % (0-5); Neutrophil # 3.37 X10^3/uL (2.7-7.7); Neutrophil % 59.3 % (47-70); Platelet Count 193 K/mm3 (150-450); RBC Distribution Width SD 49.2 fl (35.1-43.9); Red Blood Count 3.54 M/mm3 (4.2-5.4); White Blood Count 5.7 K/mm3 (4.4-11.0)
[2019-06-25 06:20] LABS: Anion Gap 6 (5-15); BUN 20 mg/dL (7-18); BUN/Creat Ratio 30.1 RATIO (10-20); Calcium,Total 8.9 mg/dL (8.5-10.1); Chloride 104 mmol/L (98-107); Creatinine, Serum 0.66 mg/dL (0.55-1.02); EST Glomerular Filtration Rate 90 mL/min (>60); Est Glom Filt Rate - Afr Amer 109 mL/min (>60); Glucose 85 mg/dL (74-106); Potassium 4.6 mmol/L (3.5-5.1); Sodium Level 137 mmol/L (136-145)
[2019-06-25] MEDS: Calcium (Elemental) 500 MG Tablet PO (12:07)
[2019-06-25] MEDS: Multivitamins,Ther W-Minerals Tablet 1 TABLET PO (12:08)
[2019-06-25 15:35] VITALS: BP 94/48; PULSE 70; RESP 16; TEMP 36.7; O2SAT 98
[2019-06-25 17:39] VITALS: BP 138/79; PULSE 70
[2019-06-25] MEDS: Atorvastatin Calcium 10 MG Tablet PO (22:05)
[2019-06-25] MEDS: MELATONIN 3 MG TABLET PO (22:05)
[2019-06-26] MEDS: traMADol 50 MG Tablet PO (06:23)
[2019-06-26 06:24] VITALS: BP 118/68; PULSE 70
[2019-06-26] MEDS: Metoprolol Tartrate 25 MG Tablet 12.5 MG PO ×2 (06:24→17:04)
[2019-06-26] MEDS: Levothyroxine 100 MCG Tablet PO (06:24)
[2019-06-26] MEDS: APIXABAN 2.5 MG TABLET PO ×2 (06:24→17:04)
[2019-06-26] MEDS: Calcium (Elemental) 500 MG Tablet PO (12:00)
[2019-06-26] MEDS: Multivitamins,Ther W-Minerals Tablet 1 TABLET PO (12:00)
[2019-06-26 15:13] VITALS: BP 102/55; PULSE 70; RESP 18; TEMP 36.4; O2SAT 95
--- NOTE | 2019-06-26 15:56 | CASEMGMT ---
Social Work Spoke with patient about therapy issuing LCD 06/30, DC home 07/01. Pt agreeable to DC. Pt has no DME needs and would like to follow up with [facility]patient PT. Referral made. Plan: DC home 07/01 with [facility] PT. Priti Tellez, JOZEF SANDRAW
[2019-06-26 17:04] VITALS: PULSE 60
--- NOTE | 2019-06-26 20:51 | DCINST_ITS ---
- Discharge Diagnoses Current Active Problems: Current Active and Chronic Problems (Last Reviewed 12/27/18 @ 14:21 by Elda Shafer) Debility (Acute) Fall (Acute) Atrial fibrillation (Chronic) Hypertension (Chronic) Hypothyroidism (Chronic) Closed head injury (Acute) Concussion (Acute) You will use the following diet at home:: No restrictions, Regular Your food should be the consistency of: Regular Your liquids should be the consistency of: Regular/Thin Discharge Activity: Return to Normal Activity, May Shower, Use Walker Weight Bearing Status: Weight bearing as tolerated Call your doctor if you observe: Fever of 101 or Higher, Inability to urinate, Inability to have a bowel movement, Shortness of breath, Chest pain, Uncontrolled pain Allergies/Adverse Reactions: Allergies latex Adverse Reaction (Verified 05/30/19 11:33) Itching sulfamethoxazole [From Bactrim] Adverse Reaction (Verified 05/30/19 11:33) Nausea trimethoprim [From Bactrim] Adverse Reaction (Verified 05/30/19 11:33) Nausea Medications to take at Discharge Simvastatin [Zocor] 20 mg PO QHS 11/11/13 biotin 1 mg capsule 1 mg PO DAILY 06/29/18 Calcium Carb/Mag Ox/Zinc Sulf [Cvs Objfsza-Gpibhpdog-Pho Cplt] 1 tab PO DAILY 05/30/19 Cholecalciferol (Vitamin D3) [D3-2000] 2,000 unit PO DAILY 05/30/19 Levothyroxine Sodium 100 mcg PO DAILY 05/30/19 Metoprolol Tartrate [Lopressor (beta krystina)] 12.5 mg PO BID 05/30/19 Apixaban [Eliquis] 2.5 mg PO BID 06/03/19 FA/Mv,Ca,Iron,Min/Lycopene/Lut [Centravites Tablet] 1 ea PO DAILY 06/03/19 Melatonin 3 mg PO QHS PRN PRN tab 06/03/19 Meloxicam [Mobic] 7.5 mg PO DAILY 06/03/19 Acetaminophen [Tylenol] 1,000 mg PO Q6H PRN PRN tablet 06/26/19 traMADol [Ultram] 50 mg PO Q6H PRN PRN #30 tab 06/26/19 The following prescriptions were given: traMADol [Ultram] 50 mg PO Q6H PRN PRN #30 tab PRN Reason: Pain Score 4-10/10 Prescription Printed Primary Care Physician: Rod Ochoa Chi, MD [Primary Care Provider] - Please follow up with your Primary Care Physician in: 1 week. Test Results: Test results from this visit will be discussed in further detail at your follow- up appointment, if applicable. Please Follow Up With: Amina Nieto DO - Right hand fracture. When: 2 weeks. Proposed Discharge Date: 07/01/19
--- NOTE | 2019-06-26 20:54 | DS.PCM_ITS ---
Discharge Date and Diagnosis - Problem List Patient Problems: Active and Suspected Problems (Last Reviewed 12/27/18 @ 14:21 by Elda Shafer) Debility (Acute) Fall (Acute) Closed head injury (Acute) Concussion (Acute) Date of Admission: 06/03/19 Date of Discharge: 07/01/19 - Primary Discharge Diagnosis Active and Suspected Problems (Last Reviewed 12/27/18 @ 14:21 by Elda Shafer) Debility (Acute) Fall (Acute) Closed head injury (Acute) Concussion (Acute) - Secondary Discharge Diagnosis Chronic Problems (Last Reviewed 12/27/18 @ 14:21 by Elda Shafer) Atrial fibrillation (Chronic) Hypertension (Chronic) Hypothyroidism (Chronic) Complete heart block (Chronic) Sick sinus syndrome (Chronic) History of permanent cardiac pacemaker placement (Chronic) Slow ventricular response to a-fib 06/2009; Nonrheumatic mitral valve insufficiency (Chronic) Essential (primary) hypertension (Chronic) Acquired hypothyroidism (Chronic) History of atrial fibrillation (Chronic) on xarelto Microscopic colitis (Chronic) Mild intermittent asthma (Chronic) Ulcer of left lower extremity with fat layer exposed (Chronic) Edema leg (Chronic) Delayed wound healing (Chronic) Malnutrition (Chronic) Venous insufficiency (Chronic) Hyperlipidemia (Chronic) Hospital Course and Treatment Imaging Results: 06/03/19 11:25 Diet: Cardiac/Low Cholesterol Food consistency:: Regular Liquid Consistency:: Regular/Thin Clinical Impression(s) from Imaging Studies Hand X-Ray 06/22/19 08:34 IMPRESSION: Healing fracture at the base of the first metacarpal with continued mild soft tissue swelling. Electronically Signed: Reji Ramírez, at 9:40 EDT , Service support , Labs (Last 48 Hours) 06/25/19 06/25/19 05:15 05:15 WBC 5.7 RBC 3.54 L Hgb 11.2 L Hct 33.8 L MCV 95.5 MCH 31.6 MCHC 33.1 RDW Std Deviation 49.2 H RDW Coeff of Radha 14.0 Plt Count 193 MPV 10.0 Immature Gran % (Auto) 0.700 Neut % (Auto) 59.3 Lymph % (Auto) 19.5 Bennett % (Auto) 10.2 H Eos % (Auto) 9.1 H Baso % (Auto) 1.2 H Absolute Neuts (auto) 3.4 Absolute Lymphs (auto) 1.11 Nucleated RBC % 0 Sodium 137 Potassium 4.6 Chloride 104 Carbon Dioxide 27.0 Anion Gap 6 BUN 20 H Creatinine 0.66 Estim Creat Clear Calc 41.00 Est GFR (MDRD) Af Amer 109 Est GFR (MDRD) Non-Af 90 BUN/Creatinine Ratio 30.1 H Glucose 85 Calcium 8.9 Operations: None Procedures: None Summary of Care Provided: The patient is a 84 year old Female with below past medical history hospitalized after a fall, complicated by right hand fracture, left knee laceration, concussion, admitted to TCU with debility, here for rehabilitation, strengthen ing, prior to discharge home alone. Discharge home alone, son to stay with resident for 1 week, outpatient PT at [facility]. Patient Problems: Active and Suspected Problems (Last Reviewed 12/27/18 @ 14:21 by Elda Shafer) Debility (Acute) Fall (Acute) Closed head injury (Acute) Concussion (Acute) - Physical Exam Vitals/I&O's: Vital Signs Temp Pulse Resp BP Pulse Ox 97.6 F L 60 18 102/55 L 95 06/26/19 15:13 06/26/19 17:04 06/26/19 15:13 06/26/19 15:13 06/26/19 15:13 Oxygen Delivery Method Room Air Weight: 60.328 kg Body Mass Index (BMI) 21.4 Intake and Output for Last 24 Hours 06/24/19 06/25/19 06/26/19 23:59 23:59 23:59 Intake Total 600 / 600 1080 / 1080 1460 / 1460 Balance 600 / 600 1080 / 1080 1460 / 1460 Current Medications Acetaminophen (Tylenol) 1,000 mg PO Q6H PRN PRN PRN Reason: Pain Score 1-3/10 Last Admin: 06/24/19 10:38 Dose: 1,000 mg Documented by: Apixaban (Eliquis) 2.5 mg PO BID [facility] Last Admin: 06/26/19 17:04 Dose: 2.5 mg Documented by: Atorvastatin Calcium (Lipitor) 10 mg PO QHS [facility] Last Admin: 06/25/19 22:05 Dose: 10 mg Documented by: Bisacodyl (Dulcolax) 10 mg PO DAILY PRN PRN PRN Reason: Constipation Calcium Carbonate (Os-[place] 500) 500 mg PO DAILY@1200 [facility] Last Admin: 06/26/19 12:00 Dose: 500 mg Documented by: Cholecalciferol (Vitamin D) 2,000 unit PO DAILY [facility] Last Admin: 06/26/19 06:24 Dose: 2,000 unit Documented by: Levothyroxine Sodium (Synthroid) 100 mcg PO DAILY [facility] Last Admin: 06/26/19 06:24 Dose: 100 mcg Documented by: Melatonin (Melatonin) 3 mg PO QHS [facility] Last Admin: 06/25/19 22:05 Dose: 3 mg Documented by: Metoprolol Tartrate (Lopressor (Beta Dorothy)) 12.5 mg PO BID [facility] Last Admin: 06/26/19 17:04 Dose: 12.5 mg Documented by: Multivitamins/Minerals (Multivitamin With Minerals) 1 tablet PO DAILY@1200 [facility] Last Admin: 06/26/19 12:00 Dose: 1 tablet Documented by: Ondansetron HCl (Zofran Odt) 4 mg PO Q8H PRN PRN PRN Reason: NAUSEA/VOMITING Last Admin: 06/12/19 01:33 Dose: 4 mg Documented by: Polyethylene Glycol (Miralax) 17 gm PO DAILY [facility] Last Admin: 06/26/19 06:24 Dose: Not Given Documented by: Senna/Docusate Sodium (Senokot-S, Lexis-Colace) 1 tablet PO BID PRN PRN PRN Reason: Constipation Tramadol HCl (Ultram) 50 mg PO Q6H PRN PRN PRN Reason: Pain Score 4-10/10 Last Admin: 06/26/19 06:23 Dose: 50 mg Documented by: Discharge Diet: No Restrictions Discharge Activity: Return to Normal Activity, May Shower, Use Walker Weight Bearing Status: Weight bearing as tolerated Call your doctor if you observe: Fever of 101 or Higher, Inability to urinate, Inability to have a bowel movement, Shortness of breath, Chest pain, Uncontrolled pain Home Medications: Medications to take at Discharge Simvastatin [Zocor] 20 mg PO QHS 11/11/13 biotin 1 mg capsule 1 mg PO DAILY 06/29/18 Calcium Carb/Mag Ox/Zinc Sulf [Cvs Olesqvr-Louamwfxm-Bzq Cplt] 1 tab PO DAILY 05/30/19 Cholecalciferol (Vitamin D3) [D3-2000] 2,000 unit PO DAILY 05/30/19 Levothyroxine Sodium 100 mcg PO DAILY 05/30/19 Metoprolol Tartrate [Lopressor (beta dorothy)] 12.5 mg PO BID 05/30/19 Apixaban [Eliquis] 2.5 mg PO BID 06/03/19 FA/Mv,Ca,Iron,Min/Lycopene/Lut [Centravites Tablet] 1 ea PO DAILY 06/03/19 Melatonin 3 mg PO QHS PRN PRN tab 06/03/19 Meloxicam [Mobic] 7.5 mg PO DAILY 06/03/19 Acetaminophen [Tylenol] 1,000 mg PO Q6H PRN PRN tablet 06/26/19 traMADol [Ultram] 50 mg PO Q6H PRN PRN #30 tab 06/26/19 Following Prescrptions Were Given to Patient: traMADol [Ultram] 50 mg PO Q6H PRN PRN #30 tab PRN Reason: Pain Score 4-10/10 Prescription Printed Primary Care Physician: Rod Ochoa Chi, MD [Primary Care Provider] - Please follow up with your Primary Care Physician in: 1 week. Please Follow Up With: Amina Nieto DO - Right hand fracture. When: 2 weeks. Disposition: Home Minutes spent on discharge:: 30 Patient Condition:: Stable Medical Necessity - Tobacco Use Smoking Status: Never smoker Tobacco Use: Non-smoker Meaningful Use Info Meaningful Use Diagnoses (Choose all that apply): None applicable
[2019-06-26] MEDS: Atorvastatin Calcium 10 MG Tablet PO (21:07)
[2019-06-26] MEDS: MELATONIN 3 MG TABLET PO (21:07)
[2019-06-27] MEDS: traMADol 50 MG Tablet PO (04:08)
[2019-06-27 04:09] VITALS: BP 107/50; PULSE 69
[2019-06-27] MEDS: APIXABAN 2.5 MG TABLET PO ×2 (04:09→17:12)
[2019-06-27] MEDS: Metoprolol Tartrate 25 MG Tablet 12.5 MG PO ×2 (04:09→17:12)
[2019-06-27] MEDS: Levothyroxine 100 MCG Tablet PO (04:10)
[2019-06-27] MEDS: Calcium (Elemental) 500 MG Tablet PO (11:28)
[2019-06-27] MEDS: Multivitamins,Ther W-Minerals Tablet 1 TABLET PO (11:28)
[2019-06-27 15:57] VITALS: BP 101/59; PULSE 70; RESP 20; TEMP 36.4; O2SAT 99
[2019-06-27 17:12] VITALS: BP 101/59; PULSE 70
[2019-06-27] MEDS: MELATONIN 3 MG TABLET PO (21:17)
[2019-06-27] MEDS: Atorvastatin Calcium 10 MG Tablet PO (21:17)
[2019-06-28 06:25] VITALS: BP 117/67; PULSE 69
[2019-06-28] MEDS: APIXABAN 2.5 MG TABLET PO ×2 (06:25→16:39)
[2019-06-28] MEDS: Metoprolol Tartrate 25 MG Tablet 12.5 MG PO ×2 (06:25→16:39)
[2019-06-28] MEDS: Levothyroxine 100 MCG Tablet PO (06:26)
[2019-06-28] MEDS: Calcium (Elemental) 500 MG Tablet PO (12:05)
[2019-06-28] MEDS: Multivitamins,Ther W-Minerals Tablet 1 TABLET PO (12:05)
[2019-06-28 16:39] VITALS: BP 118/60; PULSE 70
[2019-06-28 16:41] VITALS: BP 118/60; PULSE 70; RESP 18; TEMP 36.4; O2SAT 97
[2019-06-28] MEDS: MELATONIN 3 MG TABLET PO (22:09)
[2019-06-28] MEDS: Atorvastatin Calcium 10 MG Tablet PO (22:09)
[2019-06-28] MEDS: Acetaminophen 500 MG Tablet 1000 MG PO (22:10)
[2019-06-28 22:24] VITALS: O2SAT 98
[2019-06-29 06:42] VITALS: BP 116/70; PULSE 70
[2019-06-29] MEDS: Levothyroxine 100 MCG Tablet PO (06:42)
[2019-06-29] MEDS: Metoprolol Tartrate 25 MG Tablet 12.5 MG PO ×2 (06:42→17:27)
[2019-06-29] MEDS: APIXABAN 2.5 MG TABLET PO ×2 (06:42→17:26)
--- NOTE | 2019-06-29 08:35 | MDS.RN ---
Pain interview for gustavo 07/01/19 completed.
[2019-06-29] MEDS: Multivitamins,Ther W-Minerals Tablet 1 TABLET PO (11:00)
[2019-06-29] MEDS: Calcium (Elemental) 500 MG Tablet PO (11:00)
--- NOTE | 2019-06-29 11:09 | CASEMGMT ---
Social Work BIMS and PHQ-9 completed for MDS assessment. Priti Tellez, PROFESSOR OF BIOLOGICAL SCIENCES PUPPET DEVELOPER
[2019-06-29 15:53] VITALS: BP 101/63; PULSE 70; RESP 18; TEMP 36.7; O2SAT 97
[2019-06-29 17:27] VITALS: PULSE 70
[2019-06-29] MEDS: Atorvastatin Calcium 10 MG Tablet PO (22:38)
[2019-06-29] MEDS: MELATONIN 3 MG TABLET PO (22:38)
[2019-06-30] MEDS: APIXABAN 2.5 MG TABLET PO ×2 (06:08→17:19)
[2019-06-30] MEDS: Levothyroxine 100 MCG Tablet PO (06:08)
[2019-06-30 06:09] VITALS: BP 119/73; PULSE 72
[2019-06-30] MEDS: Metoprolol Tartrate 25 MG Tablet 12.5 MG PO ×2 (06:09→17:19)
[2019-06-30] MEDS: Multivitamins,Ther W-Minerals Tablet 1 TABLET PO (11:38)
[2019-06-30] MEDS: Calcium (Elemental) 500 MG Tablet PO (11:38)
[2019-06-30 15:56] VITALS: BP 113/71; PULSE 69; RESP 18; TEMP 36.3; O2SAT 100
[2019-06-30 17:19] VITALS: BP 113/71; PULSE 69
[2019-06-30] MEDS: Atorvastatin Calcium 10 MG Tablet PO (21:23)
[2019-06-30] MEDS: MELATONIN 3 MG TABLET PO (21:23)
[2019-07-01 06:00] VITALS: BP 114/59; PULSE 71
[2019-07-01] MEDS: Metoprolol Tartrate 25 MG Tablet 12.5 MG PO (06:00)
[2019-07-01] MEDS: APIXABAN 2.5 MG TABLET PO (06:00)
[2019-07-01] MEDS: Levothyroxine 100 MCG Tablet PO (06:01)
[2019-07-01] MEDS: Multivitamins,Ther W-Minerals Tablet 1 TABLET PO (11:36)
[2019-07-01] MEDS: Calcium (Elemental) 500 MG Tablet PO (11:36)
[2019-07-01 13:32] VITALS: BP 110/58; PULSE 65; RESP 18; TEMP 36.7; O2SAT 98
== END 2019-07-01 13:05 | disposition home or self-care (01) | DRG 560 ==
PROVIDERS: Admitting Provider Family Medicine Geriatric Medicine; Family Provider Family Medicine Geriatric Medicine; PCP Family Medicine Geriatric Medicine; Referring Provider Family Medicine Geriatric Medicine; Visit Provider Family Medicine Geriatric Medicine
DX: S62.231D Other displaced fracture of base of first metacarpal bone, right hand, subsequent encounter for fracture with routine healing (principal); I48.20 Chronic atrial fibrillation, unspecified; S81.012D Laceration without foreign body, left knee, subsequent encounter; S06.0X9D Concussion with loss of consciousness of unspecified duration, subsequent encounter; W19.XXXD Unspecified fall, subsequent encounter; E78.5 Hyperlipidemia, unspecified; I10 Essential (primary) hypertension; M19.90 Unspecified osteoarthritis, unspecified site; E55.9 Vitamin D deficiency, unspecified; J45.20 Mild intermittent asthma, uncomplicated; E03.9 Hypothyroidism, unspecified
CPT/HCPCS: 36415; 73120; 80048; 85025; 97110; 97116; 97163; 97166; 97530; 97535; 97537; 97802

== ENCOUNTER → 2019-07-05 | Outpatient (CLI) | payer MEDICARE, OTHER, SELFPAY ==
[2019-07-05 09:15] VITALS: BMI 21.4
--- NOTE | 2019-07-05 09:29 | RAD_ITS ---
STUDY: X-RAY - RIGHT HAND, ATTENTION THUMB REASON FOR EXAM: Fracture follow-up. TECHNIQUE: 3 view(s) of the finger were obtained. COMPARISON: Radiographs 06/22/2019 and 05/30/2019. FINDINGS: There is a fracture of the proximal metaphysis of the first metacarpal remaining in normal alignment and position. There is arthrosis of the first carpometacarpal joint with joint space narrowing. Normal metacarpophalangeal joint. Normal proximal phalanx. Normal distal phalanx. There are marginal osteophytes and joint space narrowing of the interphalangeal joint. There is overlying cast. RAD/Finger(s) Min 2 Views IMPRESSION: Fracture of the first metacarpal remaining in normal alignment and position. Electronically Signed: Shahzad Peña MD at 10:21 EDT Tel , Service support ,
== END | disposition home or self-care (01) ==
LOC: HPRAD 09:29
PROVIDERS: Family Provider Family Medicine Geriatric Medicine; PCP Family Medicine Geriatric Medicine; Referring Provider Orthopaedic Surgery; Visit Provider Orthopaedic Surgery
DX: S62.501A Fracture of unspecified phalanx of right thumb, initial encounter for closed fracture (principal)
CPT/HCPCS: 73140

== ENCOUNTER 2019-07-18 12:30 | Outpatient (RCR) | payer MEDICARE, OTHER, SELFPAY ==
--- NOTE | 2019-07-03 13:50 | HP.PTEVAL ---
Patient's Visit Information MARISA SANTIAGO is a 84 year old F referred to Physical Therapy by Rod Ochoa MD with a diagnosis of Debility. Date of Evaluation: 07/03/19 Physical Therapist: EDUARDO EspinozaT, OCS, CSCS - Visit Plan Frequency: 3x /Week Duration: 4-6 Weeks Plan: 3x/week for 3-6 weeks. Gastroc and HS stretches, LE and postural restrengthening to HEP, gait and baalnce exercises emphasizing weight shifts, foam, pregait and gait without AD in therapy for confidence building. - Subjective Findings: Was 3 weeks ago at for class adn walking with a cane as normal coming to balance class, got foot caught in cane and fell. Broke R thumb and a number of bumps and bruises on L elbow adn L knee. Currently has cast on thumb R. Emilia told her she had a broken L elbow but Don said no. Cast will be on R thumb 8-10 weeks. Using walker since that time with wheels. Not sure why she fell otherwise. No other falls. Only dizzyness sometime getting up in morning some times. No neuropathy. No other recent falls then says 2 yrs ago was most recent. No L elbow pain, no complaints of pain or pain meds. Was in TCU for for almost 3 weeks adn released last Tuesday. Lives alone but son is here until tuesday. walker fits in house OK. Can climb steps at home hlding railing and has another walker upstairs. Dressing self, showering and bathroom self although son stood by the first time. Son cooks right now and will eat frozen foods when he leaves adn has meals on wheels starting. Has a cleaning lady. Retired. Enjoys knitting and cannot with cast on R thumb. Was exercising MWF at for [place] and private training weekly in water. Doing leg ROM sitting at home, counter exercises at times. - Objective Walks with walker slowly but safe and mod I. trasnfers to adn fro sit adn supine I. Steps in a step to pattern with railing I. Weight shifts without AD slow and hesitant making walking not a pleasure adn slow with only 4 inch steps. Rearful to correct with VC. reflexes 2/3 patella and achilles B. coordination is min defcits to reciprocal heel and toe tapping adn heel to hernandez test. strength LE 4-/5 in knees adn ankles and 3+ in hip abd, ext and 4- hip flexion B. LE aROM WFL but mod tightness HS and gastroc, Cast on R thumb but ohterwise WNL to UE AROM. Sensation WNL to gross light touch in LE . - Balance Scores Functional Gait Assessment Score: 16 % Disability: 46.6700 - Goals Goal 1:: Walk with appropriate AD safely at home, Score 21/30 on FGA to minimze fall risk Goal Time Frame: 4-6 Weeks Goal 2:: I appropr HEP for balance and weight shifting adn home strength ex to bridge gap until she can return for water ex. Goal Time Frame: 4-6 Weeks Goal 3:: Pt feel 90% back to normal acitivity since fall. Goal Time Frame: 4-6 Weeks Goal 4:: Less than 30% disablitity on LEFS Goal Time Frame: 4-6 Weeks - Rehabilitation Potential Physical Therapy Diagnosis: Debility Rehabilitation Potential: Fair - Anticipated Interventions Patient/Client Instruction: Educate patient on: Condition, Plan of Care For the Purpose of:: To improve muscle performance and motor function, To increase tolerance to activity/condition/position, To improve ability of physical actions for home/community/work/leisure, To improve gait and locomotor functions Therapeutic Exercise to Include: Strength training, Balance training, Coordination, Postural training, Flexibilty training, Gait and locomotor training, Passive ROM, Active ROM For the Purpose of:: To improve muscle performance and motor function, To increase tolerance to activity/condition/position, To improve ability of physical actions for home/community/work/leisure, To improve gait and locomotor functions, To improve balance, To improve safety with gait Thank you for the opportunity to evaluate your patient. For Medicare and Medicare HMO plans, please review the plan of care and approve it. It will need to be FAXED BACK to us at [phone] for Medicare purposes. For Medicare only, by signing this I certify the plan of care. Please let me know if there are questions or concerns regarding this plan of care. Physician Signature: Date:
--- NOTE | 2019-07-19 10:50 | HP.OTEVAL_ITS ---
Patient's Visit Information MARISA SANTIAGO is a 84 year old F, referred to Occupational Therapy by Rod Ochoa MD, with a diagnosis of right base of 1st metacarpal fx. Date of Evaluation: 07/11/19 Occupational Therapist: Funmilayo Oliveira, FRANKLIN/Carolyn, CHT - Subjective Subjective: This 84 year old female was seen for OT eval following a right metacarpal base of 1st. fall on Jun.06 and went to TCU for 3 weeks and 4 days. pt lives at home ind. and currently is having meals on wheels to assist her due to her limitations at this time. - ADLs Dressing: Button shirt, Pants, Socks, Shoes Fasteners: Buttons, Zippers Eating: Cut food Kitchen: Chop with knife, Peel fruits & vegetables, Open jars, Open bottle caps, Pour from pitcher, Lift saucepan - ROM Wrist: right 50/65 left 60/55 CMC: right 20 left 20 MP: right 50 left 50 IP: right 50 left 65 - Strength Electron Tube Assembler: right 28# left 45# Lateral Pinch: right 10# left 8# Tripod Pinch: right 7# left 8# - Sensation Sensation Comments: denies - Quick DASH-Disab of Arm,Shoulder& Hand Quick DASH Score: 13.6350 - Goals Goal:: PT will demo a increase in right nurse orthopedic strength by 10# to return pt to PLOF with ADLs by d/c Goal:: Pt will demo the ability to manipulate zoppers, buttons and snaps to increase ind. with ADLs and IADLS by dc Goal:: Pt will demo ind. jerry/doff of orthosis by end of 1st session. pt will demo understanding of orthosis precautions by end of 1st session. - Rehabilitation General Assessment: Pt demo with need of custom orthosis to provide support and protection while pt is amb. with WW as her fx cont. to heal. Pt would benefit from skilled OT services to return pt to PLOF with ROM and strength- Pt would benefit from skilled OT sevices 1-2 x week for 2 weeks-THerapist ignacio. custom orthosis, pt demo ind. jerry/doff, and understanding of precautions. Therapist also ed. pt on AROM of wrist and thumb along with returning to light daily tasks. pt demo understanding and agree to POC. Rehabilitation Potential: Good - Anticipated Interventions Anticipated Interventions: A/AAROM/PROM, Strengthening, Modalities, Orthoses, Joint Protection/Energy Conservation, Ergonomic Education, ADL Training - Visit Plan Frequency: 1-2x /Week Duration: 2 Weeks TEXT: Thank you for the opportunity to evaluate your patient. For Medicare and Medicare HMO plans, please review the plan of care and approve it. It will need to be FAXED BACK to us at [phone] for Medicare purposes. Please let me know if there are questions or concerns regarding this plan of care. Physician Signature: Date:_
--- NOTE | 2019-07-19 10:54 | HP.OTDCSUM_ITS ---
HP - OT D/C Summary It has been my pleasure to treat MARISA SANTIAGO under orders from Rod Ochoa MD, for the diagnosis of right base of 1st metacarpal fx for a total of 2 visit(s). Please see the following information for a summary of their discharge status. - Overall Improvement % Improvement: 100 - Objective Objective/Function: right 38# left 40#. right 10# left 10#. right 8# left 8#. right MP 50. 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 with ADLs and IADLS by dc Goal:: Pt will demo ind. jerry/doff of orthosis by end of 1st session. pt will demo understanding of orthosis precautions by end of 1st session. - D/C Information Discharge Comments: Pt returned to therapy demo increase in functional strenght and ROM- reporting she is IND with ADLs and IADLS. Pt has met OT goals and is D/C at this time- pt will cont with PT for balance and LE strengthening as well as returning to her silver sneaker ex. If there are questions or concerns regarding this patient's occupational therapy, please fell free to call me at [phone]. Thank you for the referral of this patient. Sincerely, Funmilayo Oliveira, OTR/L, CHT
== END 2019-07-18 19:00 | disposition home or self-care (01) ==
LOC: OT 12:30
PROVIDERS: Family Provider Family Medicine Geriatric Medicine; PCP Family Medicine Geriatric Medicine; Referring Provider Family Medicine Geriatric Medicine; Visit Provider Family Medicine Geriatric Medicine
DX: R53.81 Other malaise (principal)
CPT/HCPCS: 97110; 97162; 97166; 97530

== ENCOUNTER 2019-10-02 16:34 | Emergency (ER) | payer MEDICARE, OTHER, SELFPAY ==
[2019-07-05 09:15] VITALS: BMI 21.4
[2019-10-02 16:36] VITALS: BP 142/97; PULSE 70; RESP 18; TEMP 35.7; O2SAT 99; BMI 20.5
--- NOTE | 2019-10-02 17:09 | EKG12_ITS ---
Test Reason : Blood Pressure : / mmHG Vent. Rate : 070 BPM Atrial Rate : 076 BPM P-R Int : 000 ms QRS Dur : 180 ms QT Int : 476 ms P-R-T Axes : 000 223 088 degrees QTc Int : 514 ms Ventricular-paced rhythm Abnormal ECG Confirmed by YANY ARELLANO ([id number]), video effects editor MILLI TOLENTINO ([id number]) on 10/04/2019 10:32:42 AM Referred By: SONALI/RAUDEL Confirmed By:YANY ARELLANO
[2019-10-02 17:23] VITALS: BP 147/76; PULSE 70; RESP 11; O2SAT 97
--- NOTE | 2019-10-02 17:24 | RAD_ITS ---
STUDY: X-RAY CHEST REASON FOR EXAM: Female, 84 years old. NAUSEA AND VOMITING TECHNIQUE: Single AP portable view of the chest. COMPARISON: February 09, 2018 FINDINGS: Pacemaker device on the left is stable. The lungs are clear and expanded. There is no demonstrated pleural abnormality. There is moderate cardiac enlargement. Normal mediastinum and augie. Normal visualized pulmonary arteries. There is atherosclerotic calcification of the aortic arch with tortuosity. There is demineralization of the osseous structures. There is degenerative osteoarthritis of the bilateral shoulders. Healed right rib fractures. There is no demonstrated abnormality of the visualized soft tissue structures of the upper abdomen. RAD/Chest 1 View (Portable) IMPRESSION: Cardiac enlargement. No focal infiltrate. Electronically Signed: Sixto Cramer MD at 17:51 EST , Service support ,
[2019-10-02] MEDS: Meclizine HCl 25 MG Tablet PO (17:31)
[2019-10-02] MEDS: Ondansetron 4 MG/2 ML Vial IV (17:31)
[2019-10-02 17:46] LABS: Absolute Lymphocyte Count 0.94 X10^3/uL (0.83-4.51); Absolute Neutrophil Count 4.7 X10^3/uL (2.0-7.7); Basophil# 0.06 X10^3/uL; Basophil% 0.9 % (0-1); Eosinophil# 0.25 X10^3/uL; Eosinophils% 3.8 % (0-5); Hematocrit 42.1 % (37-47); Hemoglobin 13.5 g/dL (12.0-15.0); Lymphocyte # 0.94 X10^3/ul (4.0); Lymphocyte % 14.4 % (19-41); Mean Corp Hgb Conc 32.1 g/dL (32-36); Mean Corpuscular Hgb 30.2 pg (27.0-32.0); Mean Corpuscular Volume 94.2 fL (81-99); Mean Platelet Vol. 11.1 fl (6.2-12.0); Monocyte# 0.55 X10^3/uL; Monocyte% 8.4 % (0-10); NRBC Flagged by Analyzer 0 % (0-5); Neutrophil % 72.2 % (47-70); Platelet Count 150 K/mm3 (150-450); RBC Distribution Width CV 12.6 % (11.6-14.6); RBC Distribution Width SD 43.6 fl (35.1-43.9); Red Blood Count 4.47 M/mm3 (4.2-5.4); White Blood Count 6.5 K/mm3 (4.4-11.0)
[2019-10-02 18:20] LABS: AST(SGOT) 22 U/L (15-37); Alanine Aminotransfer ALT/SGPT 21 U/L (13-56); Albumin, Serum 3.7 g/dL (3.2-5.0); Alkaline Phosphatase 58 U/L (45-117); Anion Gap 5 (5-15); BUN 23 mg/dL (7-18); BUN/Creat Ratio 24.9 RATIO (10-20); Calcium,Total 9.4 mg/dL (8.5-10.1); Chloride 103 mmol/L (98-107); Creatinine, Serum 0.92 mg/dL (0.55-1.02); EST Glomerular Filtration Rate 62 mL/min (>60); Est Glom Filt Rate - Afr Amer 75 mL/min (>60); Estimated Creatinine Clearance 44.79 ml/min; Globulin 3.6 g/dL (2.2-4.2); Glucose 105 mg/dL (74-106); Lipase 157 U/L (73-393); Potassium 3.8 mmol/L (3.5-5.1); Protein, Total 7.3 g/dL (6.4-8.2); Sodium Level 136 mmol/L (136-145)
[2019-10-02 18:29] VITALS: BP 143/76; BP 147/77; BP 151/79; PULSE 70
--- NOTE | 2019-10-02 18:34 | ED.VIS.GEN ---
History of Present Illness Chief Complaint: Nausea/Vomiting Informant: Patient Onset: Today Context: Sudden Onset Narrative: Patient is an 84-year-old female with history of vertigo presenting with nausea vomiting and dizziness while she was at the dentist. Patient states that she was laying down in the dental chair when she went to sit up she suddenly felt very dizzy and threw up. She states he had 5 total episodes of vomiting. She states she feels the room is spinning. Her symptoms are worse when she tries to stand. She states at that time she feels lightheaded. She was brought into the emergency room from the dental office for further evaluation. Patient denies any vision changes, chest pain, shortness of breath or difficulty breathing. She denies any cyst abdominal pain. Patient uses a walker and lives home alone. Patient notes the past 2 weeks she has had some double vision in her left eye. She is seen by her interviewing clerk and was thought to be a prism problem. Her glasses were changed and her vision has been better since. Past Medical History - Allergies and Home Meds Allergies/Adverse Reactions: Allergies latex Adverse Reaction (Verified 10/02/19 16:36) Itching sulfamethoxazole [From Bactrim] Adverse Reaction (Verified 10/02/19 16:36) Nausea trimethoprim [From Bactrim] Adverse Reaction (Verified 10/02/19 16:36) Nausea Primary Care Physician: Rod Ochoa Chi, MD [Primary Care Provider] - Past Medical History: - - Atrial fibrillation, hypothyroid, sick sinus syndrome?status post pacemaker placement, hypertension, hyperlipidemia Surgical History: pacemaker implantation, total hip arthroplasty - Right., total knee arthroplasty - Left., - - Thyroidectomy. Lives: Alone Smoking Status: Never smoker - Family History Maternal Family History: Family History (Last Reviewed 05/30/19 @ 16:50 by MARY Pascual) Father CAD (coronary artery disease) Brother Cancer Brother Epilepsy Family History: Reports: No pertinent history, - - cancer, kidney disease, lung disease, cardiac disease Review of Systems General: Reports: - - Dizziness. Denies: Chills, Fever, Sweats Eyes: Denies: Visual changes - bilaterally, Diplopia ENT: Denies: Rhinorrhea, Sore throat Cardiovascular: Denies: Chest pain, Palpitations Respiratory: Denies: Dyspnea, Cough, Dyspnea on exertion Gastrointestinal: Reports: Nausea, Vomiting. Denies: Abdominal pain, Diarrhea, Melena, Hematochezia Genitourinary: Denies: Dysuria, Hematuria, Frequency Musculoskeletal: Denies: Back pain, Extremity Pain Skin: Denies: Rash, Wounds Neurological: Denies: Headache, Weakness, Parasthesia, Numbness Physical Exam Vital Signs/Narrative: Vital Signs Temp Pulse Pulse Pulse Pulse Resp BP 10/02/19 18:29 70 70 70 10/02/19 17:23 70 11 L 147/76 H 10/02/19 16:36 96.3 F L 70 18 142/97 H BP BP BP Pulse Ox 10/02/19 18:29 143/76 H 147/77 H 151/79 H 10/02/19 17:23 97 10/02/19 16:36 99 Inital Vital Signs reviewed: Yes General: Well nourished, Well developed, No Acute Distress Head: Normocephalic, Atraumatic Eyes: Perrl, EOMI, - - No reproducible nystagmus on exam ENT: Moist mucous membranes, No rhinorrhea, TM's clear Neck: Supple, Nontender, No JVD Cardiovascular: Regular rate, Regular rhythm, No murmurs Respiratory: No distress, CTA bilaterally, Chest nontender Abdomen: Soft, Nontender, Nondistended, Normal bowel sounds Back: Nontender, Normal Inspection Extremities: Nontender, No edema Skin: Normal color, No rash Neurological: Alert, Oriented x3, Cranial nerves II-XII grossly intact, Normal Strength, Normal Sensation, - - Normal coordination?normal [id number]. Negative for: Confused, Parasthesia Psychological: Normal affect, Normal Mood Diagnostic/Tx/Re-eval Chest X-Ray - ED: 1 View, Read by ED Physician, Read by Radiologist, No Acute Disease, Cardiomegaly Clinical Impression(s) from Imaging Studies Chest X-Ray 10/02/19 17:24 IMPRESSION: Cardiac enlargement. No focal infiltrate. Electronically Signed: Sixto Cramer MD at 17:51 EST , Service support , Laboratory Data 10/02/19 10/02/19 10/02/19 15:45 17:16 17:16 WBC 6.5 RBC 4.47 Hgb 13.5 Hct 42.1 MCV 94.2 MCH 30.2 MCHC 32.1 RDW Std Deviation 43.6 RDW Coeff of Radha 12.6 Plt Count 150 MPV 11.1 Immature Gran % (Auto) 0.300 Neut % (Auto) 72.2 H Lymph % (Auto) 14.4 L Greer % (Auto) 8.4 Eos % (Auto) 3.8 Baso % (Auto) 0.9 Absolute Neuts (auto) 4.7 Absolute Lymphs (auto) 0.94 Nucleated RBC % 0 Sodium 136 Potassium 3.8 Chloride 103 Carbon Dioxide 28.0 Anion Gap 5 BUN 23 H Creatinine 0.92 Estim Creat Clear Calc 44.79 Est GFR (MDRD) Af Amer 75 Est GFR (MDRD) Non-Af 62 BUN/Creatinine Ratio 24.9 H Glucose 105 Calcium 9.4 Total Bilirubin 0.60 AST 22 ALT 21 Alkaline Phosphatase 58 Troponin I 0.028 Total Protein 7.3 Albumin 3.7 Globulin 3.6 Albumin/Globulin Ratio 1.0 Lipase 157 Urine Color Yellow Urine Clarity Sl. Cloudy Urine pH 6.0 Ur Specific Elizabeth 1.020 Urine Protein 30 H Urine Glucose (UA) Normal Urine Ketones 5 H Urine Occult Blood 10 H Urine Nitrite Negative Urine Bilirubin Negative Urine Urobilinogen Normal Ur Leukocyte Esterase 100 H Urine RBC 0-5 SEEN Urine WBC 10-25 SEEN Ur Squamous Epith Cells 0-5 SEEN Urine Bacteria 0 SEEN Urine Mucus 0 SEEN - Rhythm Strip Rhythm Strip: Paced Rate: 70 Ectopy: None - EKG Initial EKG Interpretation: Paced, - - Jugular paced rhythm at a rate of 70 QRS 180 QTc 514 Left axis deviation Nonspecific T wave inversion in 1 and aVL Compared to prior EKG on 01/07/2017 no changes - Medical Decision Making Patient is evaluated after vomiting and what sounds like vertigo while at the dentist. It occurred when she went from laying to sitting and seems to be worsened when she tries to stand. She does describe a sensation of lightheadedness as well. She has a normal neurologic exam. I do not think this is a central vertigo and I do not think head CT/MRI are indicated at this time. I am not able to significantly reproduce the symptoms during my initial exam however she is also relatively asymptomatic. Patient is treated with IV Zofran and oral meclizine. Cardiac, metabolic and infectious work-up are obtained. Her work-up is largely negative. Patient does have white blood cells in her urine however no bacteria. She is not having any urinary symptoms of culture sent but she is not started on antibiotics at this time. Troponin is normal. CBC and BMP are also relatively normal. On reevaluation patient is feeling much better. Her orthostatics are negative. She was given 500 cc of fluid in the emergency room. She is able to ambulate and feels back to her baseline. I suspect that this was peripheral vertigo however and she will be discharged home with a course of meclizine. Patient is counseled on signs and symptoms requiring return to the emergency room. Patient verbalizes agreement and understand this plan. Patient discharged home in stable and improved condition. ED Disposition - Plan for ED Patient: Disposition: Home or Assisted Living Diagnosis: Vertigo Instructions: VERTIGO, Unspecified Prescriptions: Meclizine HCl [Antivert] 25 mg PO 4X/DAY PRN PRN #15 tab PRN Reason: Vertigo Transmission [facility] Referrals: Rod Ochoa Chi, MD [Primary Care Provider] - Additional Instructions: Your work-up was normal today. You have been prescribed medication to help with vertigo. Take as needed for symptoms. Make sure you are slow when going from sitting to standing. Return the emergency room with any worsening symptoms or if you feel unsafe at home.
[2019-10-02 18:53] LABS: Bacteria 0 SEEN /hpf (None Seen); Mucous, Urine 0 SEEN /hpf (<or=2+)
[2019-10-02 18:55] LABS: Color, Urine Yellow (Yellow); Glucose, Dipstick Normal (Normal); Ketone-Dipstick 5 mg/dl (Negative); Leukocyte Esterase-Dipstick 100 /ul (Negative); Nitrite-Dipstick Negative (Negative); Occult Blood-Urine 10 /ul (Negative); Protein-Dipstick 30 mg/dl (Negative); Urine Bilirubin Dipstick Negative (Negative); Urine Clarity Sl. Cloudy (Clear); Urine Urobilinogen Normal (Normal)
[2019-10-02 19:02] VITALS: BP 140/73; PULSE 70; RESP 17; O2SAT 98
[2019-10-02 19:03] LABS: Red Blood Cells-Urine 0-5 SEEN /hpf (0-5); Squamous Epithelial Cells - UA 0-5 SEEN /hpf (5-10); White Blood Cells 10-25 SEEN /hpf (0-5)
[2019-10-02 19:45] VITALS: BP 139/73; PULSE 70; RESP 18; O2SAT 97
--- NOTE | 2019-10-02 19:46 | ED.RN ---
REVIEWED D/C INSTRUCTIONS, FOLLOW UP CARE, PRESCRIPTION, AND S/S THAT WOULD WARRANT A RETURN TO THE ED WITH PT. PT VERBALIZED AN UNDERSTANDING AND DENIES FURTHER QUESTIONS FOR THIS RN. PT SKIN P/W/D, RESP EVEN AND UNLABORED, PT A&O X 3, NO DISTRESS NOTED. PT AMBULATED OUT OF ED, GAIT STEADY WITH WALKER.
== END 2019-10-02 19:55 | disposition home or self-care (01) ==
PROVIDERS: Emergency Provider Emergency Medicine; PCP Family Medicine Geriatric Medicine
DX: R42 Dizziness and giddiness (principal); R11.2 Nausea with vomiting, unspecified; I48.91 Unspecified atrial fibrillation; I10 Essential (primary) hypertension; E78.5 Hyperlipidemia, unspecified; E03.9 Hypothyroidism, unspecified; Z79.01 Long term (current) use of anticoagulants; Z79.899 Other long term (current) drug therapy; Z88.2 Allergy status to sulfonamides; Z88.1 Allergy status to other antibiotic agents; Z96.641 Presence of right artificial hip joint; Z96.652 Presence of left artificial knee joint; Z95.0 Presence of cardiac pacemaker
CPT/HCPCS: 71045; 80053; 81001; 83690; 84484; 85025; 87086; 87088; 93005; 96361; 96374; 99284; J7040; A4216; J2405

== ENCOUNTER → 2019-10-08 14:02 | Outpatient (CLI) | payer MEDICARE, OTHER, SELFPAY ==
[2019-10-02 16:36] VITALS: BMI 20.5
[2019-10-08 17:20] LABS: Absolute Lymphocyte Count 1.53 X10^3/uL (0.83-4.51); Absolute Neutrophil Count 3.7 X10^3/uL (2.0-7.7); Basophil% 1.5 % (0-1); Eosinophils% 7.5 % (0-5); Hematocrit 42.9 % (37-47); Hemoglobin 13.7 g/dL (12.0-15.0); Lymphocyte # 1.53 X10^3/ul (4.0); Lymphocyte % 22.9 % (19-41); Mean Corp Hgb Conc 31.9 g/dL (32-36); Mean Corpuscular Hgb 30.8 pg (27.0-32.0); Mean Corpuscular Volume 96.4 fL (81-99); Mean Platelet Vol. 11.6 fl (6.2-12.0); Monocyte# 0.78 X10^3/uL; Monocyte% 11.7 % (0-10); NRBC Flagged by Analyzer 0 % (0-5); Neutrophil # 3.74 X10^3/uL (2.7-7.7); Neutrophil % 55.8 % (47-70); Platelet Count 175 K/mm3 (150-450); RBC Distribution Width CV 12.7 % (11.6-14.6); RBC Distribution Width SD 45.3 fl (35.1-43.9); Red Blood Count 4.45 M/mm3 (4.2-5.4); White Blood Count 6.7 K/mm3 (4.4-11.0)
[2019-10-08 17:55] LABS: Vitamin D,25 Hydroxy 44.4 ng/mL (29.95-100.01)
[2019-10-08 18:07] LABS: AST(SGOT) 18 U/L (15-37); Alanine Aminotransfer ALT/SGPT 24 U/L (13-56); Albumin, Serum 3.6 g/dL (3.2-5.0); Alkaline Phosphatase 58 U/L (45-117); Anion Gap 3 (5-15); BUN 26 mg/dL (7-18); BUN/Creat Ratio 27.2 RATIO (10-20); Calcium,Total 9.4 mg/dL (8.5-10.1); Chloride 106 mmol/L (98-107); Creatinine, Serum 0.96 mg/dL (0.55-1.02); EST Glomerular Filtration Rate 59 mL/min (>60); Est Glom Filt Rate - Afr Amer 72 mL/min (>60); Globulin 3.7 g/dL (2.2-4.2); Glucose 65 mg/dL (74-106); Potassium 4.4 mmol/L (3.5-5.1); Protein, Total 7.3 g/dL (6.4-8.2); Sodium Level 140 mmol/L (136-145); Thyroid Stim Hormone (TSH) 0.71 uIU/mL (0.358-3.74)
== END ==
PROVIDERS: PCP Family Medicine Geriatric Medicine; Visit Provider Family Medicine Geriatric Medicine
DX: I10 Essential (primary) hypertension (principal); E55.9 Vitamin D deficiency, unspecified
CPT/HCPCS: 36415; 80053; 82306; 84443; 85025

== ENCOUNTER → 2020-01-08 14:52 | Outpatient (CLI) | payer MEDICARE, OTHER, SELFPAY ==
[2019-11-15 10:18] VITALS: BMI 20.5
[2020-01-08 15:26] LABS: Absolute Lymphocyte Count 1.24 X10^3/uL (0.83-4.51); Basophil# 0.06 X10^3/uL; Basophil% 1.2 % (0-1); Eosinophil# 0.22 X10^3/uL; Eosinophils% 4.3 % (0-5); Hematocrit 40.6 % (37-47); Hemoglobin 13.3 g/dL (12.0-15.0); Lymphocyte # 1.24 X10^3/ul (4.0); Lymphocyte % 24.5 % (19-41); Mean Corp Hgb Conc 32.8 g/dL (32-36); Mean Corpuscular Hgb 31.1 pg (27.0-32.0); Mean Corpuscular Volume 94.9 fL (81-99); Mean Platelet Vol. 10.4 fl (6.2-12.0); Monocyte# 0.54 X10^3/uL; Monocyte% 10.7 % (0-10); NRBC Flagged by Analyzer 0 % (0-5); Neutrophil # 2.96 X10^3/uL (2.7-7.7); Neutrophil % 58.5 % (47-70); Platelet Count 187 K/mm3 (150-450); RBC Distribution Width SD 44.1 fl (35.1-43.9); Red Blood Count 4.28 M/mm3 (4.2-5.4); White Blood Count 5.1 K/mm3 (4.4-11.0)
[2020-01-08 15:51] LABS: Vitamin D,25 Hydroxy 58.9 ng/mL
[2020-01-08 15:58] LABS: ALB/GLOB Ratio 1.1 RATIO (0.9-2.4); AST(SGOT) 19 U/L (15-37); Alanine Aminotransfer ALT/SGPT 18 U/L (13-56); Albumin, Serum 3.7 g/dL (3.2-5.0); Alkaline Phosphatase 54 U/L (45-117); Anion Gap 2 (5-15); BUN 24 mg/dL (7-18); BUN/Creat Ratio 25.6 RATIO (10-20); Calcium,Total 9.3 mg/dL (8.5-10.1); Chloride 104 mmol/L (98-107); Creatinine, Serum 0.94 mg/dL (0.55-1.02); EST Glomerular Filtration Rate 61 mL/min (>60); Est Glom Filt Rate - Afr Amer 73 mL/min (>60); Globulin 3.5 g/dL (2.2-4.2); Glucose 95 mg/dL (74-106); Potassium 4.2 mmol/L (3.5-5.1); Protein, Total 7.2 g/dL (6.4-8.2); Sodium Level 138 mmol/L (136-145); Thyroid Stim Hormone (TSH) 1.93 uIU/mL (0.358-3.74)
== END ==
PROVIDERS: PCP Family Medicine Geriatric Medicine; Referring Provider Family Medicine Geriatric Medicine; Visit Provider Family Medicine Geriatric Medicine
DX: E55.9 Vitamin D deficiency, unspecified (principal); I10 Essential (primary) hypertension
CPT/HCPCS: 36415; 80053; 82306; 84443; 85025

== ENCOUNTER 2020-01-19 12:13 | Observation (INO) | payer MEDICARE, OTHER, SELFPAY ==
[2019-11-15 10:18] VITALS: BMI 20.5
[2020-01-19] VITALS (9 sets, daily range): BP systolic 111–168; BP diastolic 64–101; PULSE 67–77; RESP 12–18; TEMP 36.3–36.8; O2SAT 98–99; BMI 23.1; BMI 22.4; BMI 23.2
--- NOTE | 2020-01-19 12:28 | RAD_ITS ---
STUDY: X-RAY CHEST REASON FOR EXAM: Female, 84 years old. palpitations TECHNIQUE: Single AP portable view of the chest. COMPARISON: October 02, 2019 FINDINGS: Pacemaker device on the left is stable. There is hyperinflation of the lungs consistent with chronic obstructive lung disease (COPD). There is no demonstrated pleural abnormality. There is moderate cardiac enlargement. Normal mediastinum and augie. Normal visualized pulmonary arteries. There is atherosclerotic calcification of the aortic arch with tortuosity. There is demineralization of the osseous structures. There is degenerative osteoarthritis of the bilateral shoulders. There are healed rib fractures. There is no demonstrated abnormality of the visualized soft tissue structures of the upper abdomen. RAD/Chest 1 View (Portable) IMPRESSION: Degenerative changes, as described above. No demonstrated acute cardiopulmonary process. Cardiac enlargement. Electronically Signed: Sixto Cramer MD at 13:59 EDT , Service support ,
--- NOTE | 2020-01-19 12:28 | EKG12_ITS ---
Test Reason : Blood Pressure : / mmHG Vent. Rate : 078 BPM Atrial Rate : 078 BPM P-R Int : 000 ms QRS Dur : 166 ms QT Int : 452 ms P-R-T Axes : 000 263 089 degrees QTc Int : 515 ms Ventricular-paced rhythm with frequent Premature ventricular complexes Abnormal ECG Confirmed by SARAH RUCKER, SOULEYMANE ([id number]), slot editor SVETLANA LARA ([id number]) on 01/22/2020 3:21:51 PM Referred By: ANU Confirmed By:SOULEYMANE SMITH MD
[2020-01-19] MEDS: Ondansetron 4 MG/2 ML Vial IV (12:51)
[2020-01-19] MEDS: 0.9% Normal Saline 1,000 ML 15 ML IV (12:51)
[2020-01-19 12:52] LABS: Basophil# 0.09 X10^3/uL; Basophil% 1.2 % (0-1); Eosinophil# 0.15 X10^3/uL; Eosinophils% 2.1 % (0-5); Hematocrit 39.3 % (37-47); Hemoglobin 12.6 g/dL (12.0-15.0); Lymphocyte % 19.3 % (19-41); Mean Corp Hgb Conc 32.1 g/dL (32-36); Mean Corpuscular Hgb 30.8 pg (27.0-32.0); Mean Corpuscular Volume 96.1 fL (81-99); Mean Platelet Vol. 10.4 fl (6.2-12.0); Monocyte# 0.62 X10^3/uL; Monocyte% 8.5 % (0-10); NRBC Flagged by Analyzer 0 % (0-5); Neutrophil # 4.98 X10^3/uL (2.7-7.7); Neutrophil % 68.5 % (47-70); Platelet Count 180 K/mm3 (150-450); RBC Distribution Width CV 12.8 % (11.6-14.6); RBC Distribution Width SD 44.8 fl (35.1-43.9); Red Blood Count 4.09 M/mm3 (4.2-5.4); White Blood Count 7.3 K/mm3 (4.4-11.0)
--- NOTE | 2020-01-19 12:57 | CT_ITS ---
STUDY: CT BRAIN WITHOUT CONTRAST REASON FOR EXAM: Female, 84 years old. INCREASED DIZZINESS RADIATION DOSAGE (If Supplied By Facility): CTDIvol = ( 44.99 ) mGy, DLP = ( 762.36 ) mGycm TECHNIQUE: Transaxial CT imaging of the brain was performed without administration of intravenous contrast material. Individualized dose optimization techniques were used for this CT. COMPARISON: May 30, 2019. FINDINGS: Normal soft tissue structures. Normal calvarium. There is moderate cerebral atrophy with widening of the extra-axial spaces and ventricular dilatation. There are areas of decreased attenuation within the white matter tracts of the supratentorial brain, consistent with microvascular disease changes. Normal basal ganglia and thalami. Normal brainstem. There is mild cerebellar atrophy. There is no intracranial hemorrhage. There are no findings of an acute ischemic infarction. Opacification of the right maxillary sinus. CT/Brain/Head without Contrast IMPRESSION: Chronic involutional changes of the brain. No hemorrhage. Electronically Signed: Sixto Cramer MD at 13:46 EDT , Service support ,
[2020-01-19 13:07] LABS: Anion Gap 3 (5-15); BUN 23 mg/dL (7-18); BUN/Creat Ratio 25.2 RATIO (10-20); Calcium,Total 9.5 mg/dL (8.5-10.1); Chloride 107 mmol/L (98-107); Creatinine, Serum 0.91 mg/dL (0.55-1.02); EST Glomerular Filtration Rate 62 mL/min (>60); Est Glom Filt Rate - Afr Amer 75 mL/min (>60); Estimated Creatinine Clearance 42.15 ml/min; Glucose 124 mg/dL (74-106); Potassium 4.2 mmol/L (3.5-5.1); Sodium Level 139 mmol/L (136-145)
[2020-01-19] MEDS: Meclizine HCl 25 MG Tablet PO (14:28)
--- NOTE | 2020-01-19 14:36 | ED.VISSUMM ---
- ER Visit Summary Date of Service: 01/19/20 Chief Complaint: [Dizziness] History of Present Illness: The patient is a 84 F [presents to the emergency department with complaint of dizziness that started this morning around 6 AM. Patient kind of fell back in the bed and states the symptoms only lasted few minutes. Patient states that she took her pulse and felt like it was irregular. She denies any chest pain. Patient has a pacemaker for history of atrial fibrillation. Patient currently on Eliquis. She denies any headache. Patient does have a remote history of vertigo and had been on Antivert in the past. Patient denies any chest pain. Denies any fever or cough or recent illness. She denies any travel or recent surgery.] Physical Examination: [HEENT-PERRLA, EOMI. Cranial nerves II through XII grossly intact. TMs clear. Mucous membranes moist. No adenopathy. Cardiovascular-regular rate and rhythm without murmur or ectopy Lungs-clear to auscultation, chest wall stable without crepitus or subcu emphysema Abdomen-normoactive bowel sounds, soft, nontender, no rebound or rigidity, no peritoneal signs. Neuro icbj-gkmeqe-zyyk and heel hernandez testing within normal limits, negative Romberg, negative pronator. I did Hallpike the patient and she had severe dizziness with head movement and with laying flat from a seated position. I did not appreciate any obvious nystagmus however. Extremities-intact ?4, normal range of motion, normal pulses, atraumatic] Test Results: [CT scan of the brain without contrast showed chronic involutional changes. Chest x-ray showed nothing acute. EKG obtained on arrival showed a ventricularly paced rhythm with frequent premature ventricular complexes. CBC with it showing a 7.3, hemoglobin 12.6, hematocrit 39, plates 180. Chemistries unremarkable. Troponin point 046.] Emergency Department Course and Treatment: [She received Zofran for nausea. Patient also received Antivert 25 mg p.o. Patient continues to be quite symptomatic with movement and she will be admitted at this time for symptom control and repeat troponins for the slightly elevated troponin.] Treatment Plan: [Admit] Disposition: [Admit] Impression: Dizziness-suspect benign positional vertigo Elevated troponin I [] This note was generated with [employer] software. It may contain incorrect words, spelling, and punctuation that were not noted in review of the chart prior to signing ED Disposition - Plan for ED Patient: Referrals: Rod Ochoa Chi, MD [Primary Care Provider] -
--- NOTE | 2020-01-19 14:52 | PCM.HP.STD ---
Problem List (1) Vertigo Status: Acute (2) Sick sinus syndrome Status: Chronic (3) Hypothyroidism Status: Chronic (4) History of permanent cardiac pacemaker placement Status: Chronic Comment: Slow ventricular response to a-fib 06/2009; (5) Essential (primary) hypertension Status: Chronic (6) Hyperlipidemia Status: Chronic Qualifiers: (7) Osteoarthritis Status: Chronic (8) Microscopic colitis Status: Chronic History of Present Illness Date of Admission: 01/19/20 Chief Complaint: vertigo The patient is a 84 year old F with pmhx of episodic vertigo, also with hx of Afib/Sick sinus syndrome with pacemaker in place, microscopic colitis, HTN, HLD, hypothyroidism, osteoarthritis who presents to the ER with c/o vertigo. The patient woke up at 0600, sat on the side of the bed and the room started spinning. She laid down which helped. She got up again and the spinning continued. She was able to get to the bathroom however when she stood up from the toilet the vertigo started again. She had associated nausea and vomiting. She felt her pulse and it felt abnormal to her. She had no chest pain, pressure, tightness or SOB. In the ER the rhythm is paced and she has a slightly indeterminate troponin. On ROS she added that she has been having diarrhea and thinks her microscopic colitis is flared up.[] Past Medical History Past Medical History (Chronic Problems): Chronic Problems (Last Updated 07/09/19 @ 17:08 by Funmilayo Hernandez) Osteoarthritis (Chronic) Microscopic colitis (Chronic) Persistent atrial fibrillation (Chronic) Hypothyroidism (Chronic) Complete heart block (Chronic) Sick sinus syndrome (Chronic) History of permanent cardiac pacemaker placement (Chronic) Slow ventricular response to a-fib 06/2009; Nonrheumatic mitral valve insufficiency (Chronic) Essential (primary) hypertension (Chronic) Ulcer of left lower extremity with fat layer exposed (Chronic) Edema leg (Chronic) Venous insufficiency (Chronic) Hyperlipidemia (Chronic) Medical History: Medical History (Last Updated 07/09/19 @ 17:08 by Funmilayo Hernandez) Persistent atrial fibrillation (Chronic) I48.19 Complete heart block (Chronic) I44.2 Sick sinus syndrome (Chronic) I49.5 Nonrheumatic mitral valve insufficiency (Chronic) I34.0 Essential (primary) hypertension (Chronic) I10 Ulcer of left lower extremity with fat layer exposed (Chronic) L97.922 Edema leg (Chronic) R60.0 Venous insufficiency (Chronic) Ulcer of right lower extremity with fat layer exposed (Resolved) L97.912 Hyperlipidemia (Chronic) E78.5 Personal history of colonic polyps Z86.010 Anemia D64.9 Asthma J45.909 Delayed wound healing T14.8 Malnutrition E46 Microscopic colitis K52.839 Mild intermittent asthma J45.20 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 Acquired hypothyroidism (Resolved) E03.9 Allergies latex Adverse Reaction (Verified 01/19/20 12:14) Itching sulfamethoxazole [From Bactrim] Adverse Reaction (Verified 01/19/20 12:14) Nausea trimethoprim [From Bactrim] Adverse Reaction (Verified 01/19/20 12:14) Nausea Home Medications: Ambulatory Orders Medication Instructions Recorded biotin 1 mg capsule 1 mg PO DAILY 06/29/18 Calcium Carb/Mag Ox/Zinc Sulf [Cvs 1 tab PO DAILY 05/30/19 Lhappqn-Ujbqoiezs-Bvn Cplt] Cholecalciferol (Vitamin D3) 2,000 unit PO DAILY 05/30/19 [D3-2000] Levothyroxine Sodium 100 mcg PO DAILY 05/30/19 Metoprolol Tartrate [Lopressor 12.5 mg PO BID 05/30/19 (beta krystina)] Apixaban [Eliquis] 2.5 mg PO BID 06/03/19 FA/Mv,Ca,Iron,Min/Lycopene/Lut 1 ea PO DAILY 06/03/19 [Centravites Tablet] Melatonin 3 mg PO QHS PRN PRN tab 06/03/19 Acetaminophen [Tylenol] 1,000 mg PO Q6H PRN PRN tab 06/26/19 traMADol [Ultram] 50 mg PO Q6H PRN PRN #30 tab 06/26/19 Meclizine HCl [Antivert] 25 mg PO 4X/DAY PRN PRN #15 tab 10/02/19 Surgical History: Surgical History (Last Updated 07/09/19 @ 17:08 by Funmilayo Hernandez) History of permanent cardiac pacemaker placement (Chronic) Z95.0 Slow ventricular response to a-fib 06/2009; H/O thyroidectomy E89.0 History of knee replacement Z96.659 History of right hip replacement Z96.641 Surgical History: pacemaker implantation, total hip arthroplasty - Right., total knee arthroplasty - Left., - - Thyroidectomy. Psychiatric History: No pertinent psych hx GEOLOGICAL ENGINEER History: No pertinent GEOLOGICAL ENGINEER history Lives: Alone Smoking Status: Never smoker Tobacco Use: Non-smoker Alcohol: None Drugs: None - *Family History Maternal Family History: Family History (Last Reviewed 01/19/20 @ 14:58 by MARY Pascual) Father CAD (coronary artery disease) Brother Cancer Brother Epilepsy History Items: No pertinent history, - - cancer, kidney disease, lung disease, cardiac disease Review of Systems Constitutional: Denies: Chills, Fever, Weakness, Weight Change, Fatigue HEENT: Denies: Head Aches, Sinus Congestion, Sinus Drainage Cardiovascular: Denies: Chest Pain, Palpitations Respiratory: Denies: Cough, Shortness of Breath, Shortness of breath at rest, Sputum production Gastrointestinal: Reports: Diarrhea, Nausea, Vomiting. Denies: Abdominal Pain Genitourinary: Denies: Dysuria Musculoskeletal: Denies: Joint Pain, Joint Tenderness Skin: Denies: Lesions, Rash, Wounds Neurological: Reports: - - vertigo. Denies: Focal weakness, Numbness, Tingling Psychiatric: Denies: Anxiety, Depression, Homicidal Ideations, Suicidal Ideations Hematologic/ Lymphatic: Denies: Easy Bruising, Easy Bleeding VTE Information - Inpt Only VTE Present on Admission: No VTE Mechan Device Prophylaxis: None VTE Pharm Prophylaxis ordered?: Yes Patient Problems: Active and Suspected Problems (Last Updated 07/09/19 @ 17:08 by Funmilayo Hernandez) Vertigo (Acute) - Physical Exam Vitals/I&O's: Vital Signs Temp Pulse Resp BP Pulse Ox 97.3 F L 71 16 132/73 H 99 01/19/20 12:14 01/19/20 14:27 01/19/20 14:27 01/19/20 14:27 01/19/20 14:27 Oxygen Delivery Method Room Air Weight: 139 lb 5.314 oz Body Mass Index (BMI) 23.1 General: Alert, Oriented x3, Cooperative HEENT: Atraumatic, PERRLA, EOMI, Normocephalic Neck: Supple, No JVD, Negative Carotid Bruits Lungs: Clear to auscultation, Normal air movement Cardiovascular: Regular rate, No murmurs Abdomen: Bowel Sounds Present, Soft, Non Tender Extremities: No edema, Capillary Refill Less than 3 Seconds Skin: No rashes, No breakdown Musculoskeletal: No Tenderness to Palpation of Joints or Extremities Neurological: Cranial nerves II-XII grossly intact Psych/Mental Status: Normal Affect, Appropriate, Alert and oriented to time, place, person, mood and affect Laboratory Results 01/19/20 12:45: WBC 7.3, RBC 4.09 L, Hgb 12.6, Hct 39.3, MCV 96.1, MCH 30.8, MCHC 32.1, RDW Std Deviation 44.8 H, RDW Coeff of Radha 12.8, Plt Count 180, MPV 10.4, Immature Gran % (Auto) 0.400, Neut % (Auto) 68.5, Lymph % (Auto) 19.3, [place] % (Auto) 8.5, Eos % (Auto) 2.1, Baso % (Auto) 1.2 H, Absolute Neuts (auto) 5.0, Absolute Lymphs (auto) 1.40, Nucleated RBC % 0 01/19/20 12:45: Sodium 139, Potassium 4.2, Chloride 107, Carbon Dioxide 29.0, Anion Gap 3 L, BUN 23 H, Creatinine 0.91, Estim Creat Clear Calc 42.15, Est GFR (MDRD) Af Amer 75, Est GFR (MDRD) Non-Af 62, BUN/Creatinine Ratio 25.2 H, Glucose 124 H, Calcium 9.5, Troponin I 0.046 H Current Medications Sodium Chloride () 1,000 mls @ 15 mls/hr IV .Q48H SONIA Last Admin: 01/19/20 12:51 Dose: 15 mls/hr Documented by: Assessment/Plan All Active Problems (Last Updated 07/09/19 @ 17:08 by Funmilayo Hernandez) Vertigo (Acute) Fracture of metacarpal base, first, right hand, closed (Acute) Periorbital edema of left eye (Acute) Debility (Acute) Fall (Acute) Closed head injury (Acute) Concussion (Acute) Ulcer of right lower extremity with fat layer exposed (Resolved) Acquired hypothyroidism (Resolved) Knee laceration (Resolved) 1. Vertigo - hx episodic vertigo. It is positional per hx. CT brain no acute process. Continue Prn meclizine. PT for vestibular therapy. 2. Indeterminate troponin - cycle enzymes. Maintain on tele. No CP/pressure/tightness. EKG shows paced rhythm. 3. Hx SSS/Afib - continue metoprolol, eliquis 4. HTN - mildly elevated, will trend 5. Osteoarthritis 6. Hypothyroidism - continue synthroid DVT ppx : eliquis This patient was seen by Pablo Smith PA-C under the supervision of Dr. Mackey.
[2020-01-19] MEDS: 0.9% Normal Saline 1,000 ML 100 ML IV (16:14)
[2020-01-19] MEDS: diazePAM 2 MG Tablet 4 MG PO ×2 (17:07→21:18)
[2020-01-19] MEDS: Metoprolol Tartrate 25 MG Tablet 12.5 MG PO (21:19)
[2020-01-19] MEDS: APIXABAN 2.5 MG TABLET PO (21:20)
[2020-01-20] VITALS (8 sets, daily range): BP systolic 105–123; BP diastolic 58–76; PULSE 66–77; RESP 16; TEMP 36.6–36.8; O2SAT 94–97
[2020-01-20] MEDS: 0.9% Normal Saline 1,000 ML 100 ML IV (02:07)
[2020-01-20] MEDS: Levothyroxine 100 MCG Tablet PO (05:27)
[2020-01-20] MEDS: APIXABAN 2.5 MG TABLET PO (09:30)
--- NOTE | 2020-01-20 09:36 | DCINST_ITS ---
- Discharge Diagnoses Current Active Problems: Current Active and Chronic Problems (Last Updated 07/09/19 @ 17:08 by Funmilayo Hernandez) Vertigo (Acute) Osteoarthritis (Chronic) Microscopic colitis (Chronic) You will use the following diet at home:: Cardiac Your food should be the consistency of: Regular Your liquids should be the consistency of: Regular/Thin Discharge Activity: Return to Normal Activity Additional Instructions: Continue outpatient physical therapy for vestibular therapy. Allergies/Adverse Reactions: Allergies latex Adverse Reaction (Verified 01/19/20 12:14) Itching sulfamethoxazole [From Bactrim] Adverse Reaction (Verified 01/19/20 12:14) Nausea trimethoprim [From Bactrim] Adverse Reaction (Verified 01/19/20 12:14) Nausea Medications to take at Discharge biotin 1 mg capsule 1 mg PO DAILY 06/29/18 Calcium Carb/Mag Ox/Zinc Sulf [Cvs Olnwuxv-Twamiinus-Fym Cplt] 1 tab PO DAILY 05/30/19 Cholecalciferol (Vitamin D3) [D3-2000] 2,000 unit PO DAILY 05/30/19 Levothyroxine Sodium 100 mcg PO DAILY 05/30/19 Metoprolol Tartrate [Lopressor (beta krystina)] 12.5 mg PO BID 05/30/19 Apixaban [Eliquis] 2.5 mg PO BID 06/03/19 FA/Mv,Ca,Iron,Min/Lycopene/Lut [Centravites Tablet] 1 ea PO DAILY 06/03/19 Melatonin 3 mg PO QHS PRN PRN tab 06/03/19 Acetaminophen [Tylenol] 1,000 mg PO Q6H PRN PRN tab 06/26/19 traMADol [Ultram] 50 mg PO Q6H PRN PRN #30 tab 06/26/19 Meclizine HCl [Antivert] 25 mg PO 4X/DAY PRN PRN #15 tab 10/02/19 Primary Care Physician: Rod Ochoa Chi, MD [Primary Care Provider] - Please follow up with your Primary Care Physician in: 1-2 weeks Test Results: Test results from this visit will be discussed in further detail at your follow- up appointment, if applicable. Proposed Discharge Date: 01/20/20
[2020-01-20] MEDS: Metoprolol Tartrate 25 MG Tablet 12.5 MG PO (09:37)
--- NOTE | 2020-01-20 11:51 | PCM.DC.SUM ---
Discharge Date and Diagnosis - Problem List Patient Problems: Active and Suspected Problems (Last Updated 07/09/19 @ 17:08 by Funmilayo Hernandez) Vertigo (Acute) Date of Admission: 01/19/20 Date of Discharge: 01/20/20 - Primary Discharge Diagnosis Active and Suspected Problems (Last Updated 07/09/19 @ 17:08 by Funmilayo Hernandez) Vertigo (Acute) 2/2 BPPV Indeterminate troponin, NSTEMI ruled out Hx Chronic afib/ SSS with pacemaker in place Hx of: Hypothyroidism HTN HLD Osteoarthritis Microscopic colitis - Secondary Discharge Diagnosis Chronic Problems (Last Updated 07/09/19 @ 17:08 by Funmilayo Hernandez) Osteoarthritis (Chronic) Microscopic colitis (Chronic) Persistent atrial fibrillation (Chronic) Hypothyroidism (Chronic) Complete heart block (Chronic) Sick sinus syndrome (Chronic) History of permanent cardiac pacemaker placement (Chronic) Slow ventricular response to a-fib 06/2009; Nonrheumatic mitral valve insufficiency (Chronic) Essential (primary) hypertension (Chronic) Ulcer of left lower extremity with fat layer exposed (Chronic) Edema leg (Chronic) Venous insufficiency (Chronic) Hyperlipidemia (Chronic) Hospital Course and Treatment Imaging Results: RAD/Chest 1 View (Portable) IMPRESSION: Degenerative changes, as described above. No demonstrated acute cardiopulmonary process. Cardiac enlargement. CT/Brain/Head without Contrast IMPRESSION: Chronic involutional changes of the brain. No hemorrhage. Operations: None Procedures: None Summary of Care Provided: Hospital Course: The patient is a 84 year old F with pmhx of episodic vertigo, Afib/SSS with pacemaker, hypothyroidism, who presented to the ER with c/o vertigo. These began about 0600 after she woke up and tried to get out of bed. They would occur with turning the head and position change. She had associated nausea and vomiting. She thought she may have felt an abnormal pulse when she palpated it as well. She had no chest pain/pressure/tightness/heaviness or SOB. She came to the ER and had a negative CT brain. A troponin was checked and it was slightly elevated at 0.046. EKG showed a paced rhythm with no ischemic changes. She was admitted to the PCU and kept on tele. Troponin was cycled. Trend was 0.046 to 0.050, to 0.044, not consistent with ischemic changes. She continued to have no chest pain or SOB. She continued to have mild positional vertigo and was felt to have BPPV. She will continue PRN meclizine. PTOT evaluated the patient for vestibular therapy and I have given her an order for ongoing outpatient vestibular therapy. She was discharged home in stable condition. She will follow up with her PCP in 1-2 weeks. This patient was seen by Pablo Smith PA-C under the supervision of Dr. Mackey. [] Patient Problems: Active and Suspected Problems (Last Updated 07/09/19 @ 17:08 by Funmilayo Hernandez) Vertigo (Acute) - Physical Exam Vitals/I&O's: Vital Signs Temp Pulse Resp BP Pulse Ox 98.1 F 70 16 105/58 L 97 01/20/20 09:27 01/20/20 11:02 01/20/20 09:27 01/20/20 09:27 01/20/20 09:27 Oxygen Delivery Method Room Air Weight: 143 lb 4.807 oz Body Mass Index (BMI) 22.4 Intake and Output for Last 24 Hours 01/18/20 01/19/20 01/20/20 23:59 23:59 23:59 Intake Total 1282.25 / 1282.25 1080.00 / 1080.00 Balance 1282.25 / 1282.25 1080.00 / 1080.00 General: Alert, Oriented x3, Cooperative HEENT: Atraumatic, PERRLA, EOMI, Normocephalic Neck: Supple, No JVD, Negative Carotid Bruits Lungs: Clear to auscultation, Normal air movement Cardiovascular: Regular rate, No murmurs Abdomen: Bowel Sounds Present, Soft, Non Tender Extremities: No edema, Capillary Refill Less than 3 Seconds Skin: No rashes, No breakdown Musculoskeletal: No Tenderness to Palpation of Joints or Extremities Neurological: Cranial nerves II-XII grossly intact Psych/Mental Status: Normal Affect, Appropriate, Alert and oriented to time, place, person, mood and affect Laboratory Results 01/19/20 12:45: WBC 7.3, RBC 4.09 L, Hgb 12.6, Hct 39.3, MCV 96.1, MCH 30.8, MCHC 32.1, RDW Std Deviation 44.8 H, RDW Coeff of Radha 12.8, Plt Count 180, MPV 10.4, Immature Gran % (Auto) 0.400, Neut % (Auto) 68.5, Lymph % (Auto) 19.3, Luna % (Auto) 8.5, Eos % (Auto) 2.1, Baso % (Auto) 1.2 H, Absolute Neuts (auto) 5.0, Absolute Lymphs (auto) 1.40, Nucleated RBC % 0 01/19/20 12:45: Sodium 139, Potassium 4.2, Chloride 107, Carbon Dioxide 29.0, Anion Gap 3 L, BUN 23 H, Creatinine 0.91, Estim Creat Clear Calc 42.15, Est GFR (MDRD) Af Amer 75, Est GFR (MDRD) Non-Af 62, BUN/Creatinine Ratio 25.2 H, Glucose 124 H, Calcium 9.5, Troponin I 0.046 H 01/19/20 17:09: Troponin I 0.048 H 01/19/20 19:33: Troponin I 0.050 H 01/19/20 22:30: Troponin I 0.044 Current Medications Acetaminophen (Tylenol) 1,000 mg PO Q6H PRN PRN PRN Reason: Pain Score 1-3/10 Apixaban (Eliquis) 2.5 mg PO BID [facility] Last Admin: 01/20/20 09:30 Dose: 2.5 mg Documented by: Sodium Chloride () 250 mls @ 15 mls/hr IV .[id number] PRN PRN Reason: Saline Flush Sodium Chloride () 250 mls @ 15 mls/hr IV .[id number] PRN PRN Reason: Additional IVPB Infusion Levothyroxine Sodium (Synthroid) 100 mcg PO DAILY@0600 [facility] Last Admin: 01/20/20 05:27 Dose: 100 mcg Documented by: Meclizine HCl (Antivert) 12.5 mg PO 4X/DAY PRN PRN PRN Reason: Vertigo Melatonin (Melatonin) 3 mg PO QHS PRN PRN PRN Reason: INSOMNIA Metoprolol Tartrate (Lopressor (Beta Dorothy)) 12.5 mg PO BID [facility] Last Admin: 01/20/20 09:37 Dose: 12.5 mg Documented by: Ondansetron HCl (Zofran) 4 mg IV Q6H PRN PRN PRN Reason: NAUSEA/VOMITING Sodium Chloride () 10 - 40 ml IV UD PRN PRN Reason: SALINE FLUSH Tramadol HCl (Ultram) 50 mg PO Q6H PRN PRN PRN Reason: Pain Score 4-10/10 Discharge Diet: Low fat/ Low Cholesterol, 2000 mg Sodium Diet Discharge Activity: Return to Normal Activity Home Medications: Medications to take at Discharge biotin 1 mg capsule 1 mg PO DAILY 06/29/18 Calcium Carb/Mag Ox/Zinc Sulf [Cvs Jojqifr-Ltivaiava-Vkp Cplt] 1 tab PO DAILY 05/30/19 Cholecalciferol (Vitamin D3) [D3-2000] 2,000 unit PO DAILY 05/30/19 Levothyroxine Sodium 100 mcg PO DAILY 05/30/19 Metoprolol Tartrate [Lopressor (beta dorothy)] 12.5 mg PO BID 05/30/19 Apixaban [Eliquis] 2.5 mg PO BID 06/03/19 FA/Mv,Ca,Iron,Min/Lycopene/Lut [Centravites Tablet] 1 ea PO DAILY 06/03/19 Melatonin 3 mg PO QHS PRN PRN tab 06/03/19 Acetaminophen [Tylenol] 1,000 mg PO Q6H PRN PRN tab 06/26/19 traMADol [Ultram] 50 mg PO Q6H PRN PRN #30 tab 06/26/19 Meclizine HCl [Antivert] 25 mg PO 4X/DAY PRN PRN #15 tab 10/02/19 Primary Care Physician: Rod Ochoa Chi, MD [Primary Care Provider] - Please follow up with your Primary Care Physician in: 1-2 weeks Disposition: Home Minutes spent on discharge:: 35 Patient Condition:: Stable Medical Necessity - Tobacco Use Smoking Status: Never smoker Tobacco Use: Non-smoker Meaningful Use Info Meaningful Use Diagnoses (Choose all that apply): None applicable
[2020-01-20] MEDS: Meclizine 12.5 MG Tablet PO (12:04)
== END 2020-01-20 09:35 | disposition home or self-care (01) ==
LOC: ED 13:33 → PCU 15:24
PROVIDERS: Admitting Provider Internal Medicine; Emergency Provider Emergency Medicine; PCP Family Medicine Geriatric Medicine; Visit Provider Internal Medicine
DX: H81.10 Benign paroxysmal vertigo, unspecified ear (principal); I48.19 Other persistent atrial fibrillation; E78.5 Hyperlipidemia, unspecified; E03.9 Hypothyroidism, unspecified; M19.90 Unspecified osteoarthritis, unspecified site; I10 Essential (primary) hypertension; Z95.0 Presence of cardiac pacemaker; Z79.899 Other long term (current) drug therapy; Z79.01 Long term (current) use of anticoagulants; J45.20 Mild intermittent asthma, uncomplicated
CPT/HCPCS: 36415; 70450; 71045; 80048; 84484; 85025; 93005; 96361; 96374; 97162; 99218; 99285; J7030; A4216; G0378; J2405

== ENCOUNTER → 2020-02-06 06:10 | Outpatient (CLI) | payer MEDICARE, OTHER, SELFPAY ==
[2020-01-23 09:47] VITALS: BMI 22.4
--- NOTE | 2020-02-06 10:17 | STRESSREP_ITS ---
Stress Test Report Date: 02-06-2020 Procedure: Pharmacologic stress nuclear imaging study Indications: Chest pain; abnormal cardiac enzymes; sick sinus syndrome; atrial fibrillation; permanent pacemaker Consent: Per the patient Procedure: The patient underwent pharmacologic (Regadenoson) evaluation with a peak heart rate of 102 beats per minute (74 %predicted maximal heart rate) and a peak blood pressure of 126/72 mmHg. The baseline ECG demonstrated electronic ventricular pacemaker. The peak pharmacologic ECG demonstrated no obvious ECG changes. There was a rare PVC in recovery. [There was no complaint of chest discomfort during pharmacologic infusion or recovery]. The examination was discontinued secondary to completion of protocol. Impression: 1. Pharmacologic (Regadenoson) evaluation 2. Peak pharmacologic ECG with continued electronic ventricular pacemaker with no obvious ECG changes. 3. There was a rare PVC in recovery. 4. Nuclear images pending Myocardial perfusion imaging study: Technique: The patient was injected with 11.8 millicuries of technetium 99m Cardiolite and subsequently rest SPECT Cardiolite nuclear imaging was obtained in the horizontal long, vertical long, and short axis views. The patient underwent pharmacologic (Regadenoson) evaluation with a peak heart rate of 102 beats per minute (74 % percent predicted maximal heart rate) and a peak blood pressure of 126/72 mmHg. The patient was injected with 36.0 millicuries of technetium 99m Cardiolite and subsequently stress SPECT Cardiolite nuclear imaging was obtained in the horizontal long, vertical long, and short axis views. A gated Cardiolite study at peak stress was obtained. Interpretation: Rest and stress SPECT Cardiolite nuclear imaging status post realignment, normalization, and attenuation correction demonstrate relative uniform tracer uptake and myocardial perfusion appearing within normal limits. [There is end systolic thickening and brightening]. [The gated Cardiolite study demonstrates myocardial thickening and inward wall motion]. The reported LVEF is 63 %. Impression: 1. [Rest and stress SPECT Cardiolite nuclear imaging demonstrate relative uniform tracer uptake and myocardial perfusion appearing within normal limits]. 2. The gated Cardiolite study reports an LVEF of 63 %. This note was generated with Paperfold software. It may contain incorrect words, spelling, and punctuation that were not noted in checking the note before signing.
== END ==
PROVIDERS: PCP Family Medicine Geriatric Medicine; Referring Provider Physician Assistant Medical; Visit Provider Physician Assistant Medical
DX: R07.9 Chest pain, unspecified (principal); R79.89 Other specified abnormal findings of blood chemistry
CPT/HCPCS: 78452; 93017; A9500; A4216; J2785

== ENCOUNTER → 2020-04-07 14:30 | Outpatient (CLI) | payer MEDICARE, OTHER, SELFPAY ==
[2020-01-23 09:47] VITALS: BMI 22.4
[2020-04-07 16:10] LABS: Absolute Lymphocyte Count 1.23 X10^3/uL (0.83-4.51); Absolute Neutrophil Count 3.3 X10^3/uL (2.0-7.7); Basophil# 0.07 X10^3/uL; Basophil% 1.3 % (0-1); Eosinophil# 0.25 X10^3/uL; Eosinophils% 4.6 % (0-5); Hematocrit 39.7 % (37-47); Hemoglobin 12.6 g/dL (12.0-15.0); Lymphocyte # 1.23 X10^3/ul (4.0); Lymphocyte % 22.5 % (19-41); Mean Corp Hgb Conc 31.7 g/dL (32-36); Mean Corpuscular Hgb 29.5 pg (27.0-32.0); Mean Platelet Vol. 11.5 fl (6.2-12.0); Monocyte# 0.61 X10^3/uL; Monocyte% 11.2 % (0-10); NRBC Flagged by Analyzer 0 % (0-5); Neutrophil # 3.29 X10^3/uL (2.7-7.7); Platelet Count 190 K/mm3 (150-450); RBC Distribution Width CV 13.1 % (11.6-14.6); RBC Distribution Width SD 43.4 fl (35.1-43.9); Red Blood Count 4.27 M/mm3 (4.2-5.4); White Blood Count 5.5 K/mm3 (4.4-11.0)
[2020-04-07 16:19] LABS: Vitamin D,25 Hydroxy 61.7 ng/mL
[2020-04-07 16:26] LABS: AST(SGOT) 20 U/L (15-37); Alanine Aminotransfer ALT/SGPT 16 U/L (13-56); Albumin, Serum 3.8 g/dL (3.2-5.0); Alkaline Phosphatase 59 U/L (45-117); Anion Gap 4 (5-15); BUN 19 mg/dL (7-18); BUN/Creat Ratio 18.8 RATIO (10-20); Calcium,Total 9.3 mg/dL (8.5-10.1); Chloride 104 mmol/L (98-107); Creatinine, Serum 1.01 mg/dL (0.55-1.02); EST Glomerular Filtration Rate 56 mL/min (>60); Est Glom Filt Rate - Afr Amer 67 mL/min (>60); Globulin 3.7 g/dL (2.2-4.2); Glucose 91 mg/dL (74-106); Potassium 4.3 mmol/L (3.5-5.1); Protein, Total 7.5 g/dL (6.4-8.2); Sodium Level 138 mmol/L (136-145); Thyroid Stim Hormone (TSH) 2.22 uIU/mL (0.358-3.74)
== END ==
PROVIDERS: PCP Family Medicine Geriatric Medicine; Visit Provider Family Medicine Geriatric Medicine
DX: E55.9 Vitamin D deficiency, unspecified (principal); I10 Essential (primary) hypertension
CPT/HCPCS: 36415; 80053; 82306; 84443; 85025

== ENCOUNTER 2020-06-10 07:49 | Emergency (ER) | payer MEDICARE, OTHER, SELFPAY ==
[2020-05-06 15:20] VITALS: BMI 21.7
[2020-06-10 07:50] VITALS: RESP 16
[2020-06-10 07:51] VITALS: BP 155/91; PULSE 70; RESP 14; TEMP 36.7; O2SAT 97; BMI 24.3
[2020-06-10] MEDS: Morphine 4 MG/ML Syringe IM (08:24)
--- NOTE | 2020-06-10 08:45 | RAD_ITS ---
STUDY: X-RAY - LUMBAR SPINE REASON FOR EXAM: Female, 85 years old. FELL YESTERDAY. LBP, RIGHT SIDED PAIN TECHNIQUE: 3 view(s) of the lumbar spine were obtained. COMPARISON: None FINDINGS: Normal lumbar lordosis. Mild levoscoliosis. There is a normal alignment of the vertebrae. There is multilevel endplate spondylosis of the lumbar vertebrae. There is multi-level degenerative disc disease with multi-level disc space narrowing. The soft tissue structures are unremarkable. RAD/Lumbar Spine 2 or 3 Views IMPRESSION: Mild levoscoliosis with mild diffuse degenerative disc disease. Electronically Signed: Ryan Colunga MD at 9:02 EDT Tel , Service support ,
--- NOTE | 2020-06-10 09:35 | ED.DCSUM_ITS ---
- ER Visit Summary Date of Service: 06/10/20 Chief Complaint: Back pain History of Present Illness: The patient is a 85 F who presents with back pain that began after a fall yesterday. Patient states she slipped on the step and fell backwards. Patient states she hit her back on the edge of the step. Vannesa ent denies any head injury or loss of consciousness. Patient states she did not fall down the steps. Patient states that she was able to apply ice last night and it felt better. Patient states that when she got up this morning the pain was severe. Patient states she was having difficulty getting out of bed. Patient describes the pain is sharp and aching. Patient denies any paresthesias or weakness. Patient denies any radiation of the pain. Patient denies any bowel or bladder changes. Patient denies any saddle anesthesia. Physical Examination: Vital signs are stable. Patient is afebrile. Patient is in no acute distress. Musculoskeletal exam reveals tenderness over the lumbar spine and paraspinal muscles. There is no bony crepitance or step-off. Range of motion was limited in all motions of the lumbar spine secondary to pain. Strength is 5/5 bilateral in the lower extremities. There are no sensory deficits noted. Test Results: X-rays of the lumbar spine were obtained. There is some degenerative changes. There is no acute fracture. These were interpreted by the radiologist and reviewed by myself. Emergency Department Course and Treatment: Patient was given injection of morphine here. Patient was feeling better. Patient was able to ambulate without difficulty. Patient was given a prescription for Mchenry. Patient was instructed to use ice to the area. Patient was instructed to follow-up with her primary care physician in 5 to 7 days. Patient understood and was agreeable with the plan. All questions were answered. Disposition: Discharge home Impression: 1. Lumbar contusion This note was generated with Cloud[employer] dictation software. It may contain incorrect words, spelling, and punctuation that were not noted in review of the chart prior to signing ED Disposition - Plan for ED Patient: Disposition: Home or Assisted Living Diagnosis: Lumbar contusion Instructions: ED Contusion Back Prescriptions: Hydrocodone Bitart/Apap 5-325 [Mchenry 5MG-325MG] 1 tab PO Q6H PRN PRN 3 Days #10 tab PRN Reason: Pain Prescription Printed Referrals: Rod Ochoa Chi, MD [Primary Care Provider] - 5-7 Days
[2020-06-10 09:54] VITALS: BP 129/79; PULSE 70; RESP 16; O2SAT 97
[2020-06-10 10:31] VITALS: BP 151/78; PULSE 70; RESP 16; O2SAT 94
--- NOTE | 2020-06-10 10:32 | ED.RN ---
REVIEWED D/C INSTRUCTIONS, FOLLOW UP CARE, PRESCRIPTION, AND S/S THAT WOULD WARRANT A RETURN TO THE ED WITH PT. PT VERBALIZED AN UNDERSTANDING AND DENIES FURTHER QUESTIONS FOR THIS RN. PT SKIN P/W/D, RESP EVEN AND UNLABORED, PT A&O X 3, NO DISTRESS NOTED. PT ASSISTED OUT OF ED IN WHEELCHAIR.
== END 2020-06-10 10:32 | disposition home or self-care (01) ==
PROVIDERS: Emergency Provider Emergency Medicine; PCP Family Medicine Geriatric Medicine
DX: M54.9 Dorsalgia, unspecified (principal); S30.0XXA Contusion of lower back and pelvis, initial encounter; W01.0XXA Fall on same level from slipping, tripping and stumbling without subsequent striking against object, initial encounter
CPT/HCPCS: 72100; 96372; 99284

== ENCOUNTER → 2020-07-08 13:30 | Outpatient (CLI) | payer MEDICARE, OTHER, SELFPAY ==
[2020-06-10 07:51] VITALS: BMI 24.3
[2020-07-08 17:18] LABS: Absolute Lymphocyte Count 1.43 X10^3/uL (0.83-4.51); Absolute Neutrophil Count 3.4 X10^3/uL (2.0-7.7); Basophil# 0.08 X10^3/uL; Basophil% 1.4 % (0-1); Eosinophil# 0.25 X10^3/uL; Eosinophils% 4.3 % (0-5); Hematocrit 43.2 % (37-47); Hemoglobin 13.3 g/dL (12.0-15.0); Lymphocyte # 1.43 X10^3/ul (4.0); Lymphocyte % 24.8 % (19-41); Mean Corp Hgb Conc 30.8 g/dL (32-36); Mean Corpuscular Hgb 28.3 pg (27.0-32.0); Mean Corpuscular Volume 91.9 fL (81-99); Mean Platelet Vol. 11.4 fl (6.2-12.0); Monocyte# 0.51 X10^3/uL; Monocyte% 8.9 % (0-10); NRBC Flagged by Analyzer 0 % (0-5); Neutrophil # 3.44 X10^3/uL (2.7-7.7); Neutrophil % 59.7 % (47-70); Platelet Count 221 K/mm3 (150-450); RBC Distribution Width CV 17.4 % (11.6-14.6); RBC Distribution Width SD 58.4 fl (35.1-43.9); White Blood Count 5.8 K/mm3 (4.4-11.0)
[2020-07-08 17:21] LABS: Vitamin D,25 Hydroxy 46.7 ng/mL
[2020-07-08 17:28] LABS: ALB/GLOB Ratio 0.9 RATIO (0.9-2.4); AST(SGOT) 26 U/L (15-37); Alanine Aminotransfer ALT/SGPT 23 U/L (13-56); Albumin, Serum 3.5 g/dL (3.2-5.0); Alkaline Phosphatase 57 U/L (45-117); Anion Gap 6 (5-15); BUN 23 mg/dL (7-18); BUN/Creat Ratio 20.2 RATIO (10-20); Calcium,Total 9.2 mg/dL (8.5-10.1); Chloride 100 mmol/L (98-107); Creatinine, Serum 1.14 mg/dL (0.55-1.02); EST Glomerular Filtration Rate 48 mL/min (>60); Est Glom Filt Rate - Afr Amer 58 mL/min (>60); Globulin 3.9 g/dL (2.2-4.2); Glucose 97 mg/dL (74-106); Potassium 4.1 mmol/L (3.5-5.1); Protein, Total 7.4 g/dL (6.4-8.2); Sodium Level 138 mmol/L (136-145)
== END ==
PROVIDERS: PCP Family Medicine Geriatric Medicine; Visit Provider Family Medicine Geriatric Medicine
DX: E55.9 Vitamin D deficiency, unspecified (principal); I10 Essential (primary) hypertension
CPT/HCPCS: 36415; 80053; 82306; 84443; 85025

== ENCOUNTER 2020-10-10 14:16 | Outpatient (RCR) | payer MEDICARE, OTHER, SELFPAY | END 2020-10-10 23:59 | LOC: IMMUN 14:16 | PROVIDERS: PCP Family Medicine Geriatric Medicine; Referring Provider Family Medicine; Visit Provider Family Medicine | DX: Z23 Encounter for immunization (principal) | CPT/HCPCS: 0011A; 0012A ==

== ENCOUNTER → 2020-10-14 11:50 | Outpatient (CLI) | payer MEDICARE, OTHER, SELFPAY ==
[2020-10-14 13:27] LABS: Absolute Lymphocyte Count 1.08 X10^3/uL (0.83-4.51); Absolute Neutrophil Count 2.4 X10^3/uL (2.0-7.7); Basophil# 0.07 X10^3/uL; Basophil% 1.6 % (0-1); Eosinophil# 0.23 X10^3/uL; Eosinophils% 5.4 % (0-5); Hematocrit 42.8 % (37-47); Hemoglobin 13.4 g/dL (12.0-15.0); Lymphocyte # 1.08 X10^3/ul (4.0); Lymphocyte % 25.4 % (19-41); Mean Corp Hgb Conc 31.3 g/dL (32-36); Mean Corpuscular Hgb 30.6 pg (27.0-32.0); Mean Corpuscular Volume 97.7 fL (81-99); Mean Platelet Vol. 11.3 fl (6.2-12.0); Monocyte# 0.49 X10^3/uL; Monocyte% 11.5 % (0-10); NRBC Flagged by Analyzer 0 % (0-5); Neutrophil # 2.36 X10^3/uL (2.7-7.7); Neutrophil % 55.6 % (47-70); Platelet Count 178 K/mm3 (150-450); RBC Distribution Width SD 46.6 fl (35.1-43.9); Red Blood Count 4.38 M/mm3 (4.2-5.4); White Blood Count 4.3 K/mm3 (4.4-11.0)
[2020-10-14 13:59] LABS: Vitamin D,25 Hydroxy 71.6 ng/mL
[2020-10-14 14:05] LABS: ALB/GLOB Ratio 0.9 RATIO (0.9-2.4); AST(SGOT) 22 U/L (15-37); Alanine Aminotransfer ALT/SGPT 21 U/L (13-56); Albumin, Serum 3.5 g/dL (3.2-5.0); Alkaline Phosphatase 57 U/L (45-117); Anion Gap 2 (5-15); BUN 16 mg/dL (7-18); Calcium,Total 9.5 mg/dL (8.5-10.1); Chloride 106 mmol/L (98-107); Creatinine, Serum 0.89 mg/dL (0.55-1.02); EST Glomerular Filtration Rate 64 mL/min (>60); Est Glom Filt Rate - Afr Amer 78 mL/min (>60); Globulin 3.7 g/dL (2.2-4.2); Glucose 79 mg/dL (74-106); Potassium 4.2 mmol/L (3.5-5.1); Protein, Total 7.2 g/dL (6.4-8.2); Sodium Level 141 mmol/L (136-145); Thyroid Stim Hormone (TSH) 2.58 uIU/mL (0.358-3.74)
== END ==
PROVIDERS: PCP Family Medicine Geriatric Medicine; Referring Provider Family Medicine Geriatric Medicine; Visit Provider Family Medicine Geriatric Medicine
DX: E55.9 Vitamin D deficiency, unspecified (principal); I10 Essential (primary) hypertension
CPT/HCPCS: 36415; 80053; 82306; 84443; 85025

== ENCOUNTER → 2021-01-20 15:11 | Outpatient (CLI) | payer MEDICARE, OTHER, SELFPAY ==
[2021-01-20 17:34] LABS: Absolute Lymphocyte Count 1.17 X10^3/uL (0.83-4.51); Absolute Neutrophil Count 3.2 X10^3/uL (2.0-7.7); Basophil# 0.05 X10^3/uL; Basophil% 0.9 % (0-1); Eosinophil# 0.23 X10^3/uL; Eosinophils% 4.3 % (0-5); Hematocrit 40.9 % (37-47); Hemoglobin 13.2 g/dL (12.0-15.0); Lymphocyte # 1.17 X10^3/ul (0.83-4.51); Mean Corp Hgb Conc 32.3 g/dL (32-36); Mean Corpuscular Hgb 30.8 pg (27.0-32.0); Mean Corpuscular Volume 95.3 fL (81-99); Mean Platelet Vol. 11.5 fl (6.2-12.0); Monocyte# 0.65 X10^3/uL; Monocyte% 12.2 % (0-10); NRBC Flagged by Analyzer 0 % (0-5); Neutrophil # 3.19 X10^3/uL (2.7-7.7); Neutrophil % 60.2 % (47-70); Platelet Count 202 K/mm3 (150-450); RBC Distribution Width CV 12.9 % (11.6-14.6); RBC Distribution Width SD 44.6 fl (35.1-43.9); Red Blood Count 4.29 M/mm3 (4.2-5.4); White Blood Count 5.3 K/mm3 (4.4-11.0)
[2021-01-20 17:54] LABS: Vitamin D,25 Hydroxy 64.5 ng/mL
[2021-01-20 18:30] LABS: ALB/GLOB Ratio 0.9 RATIO (0.9-2.4); AST(SGOT) 27 U/L (15-37); Alanine Aminotransfer ALT/SGPT 25 U/L (13-56); Albumin, Serum 3.4 g/dL (3.2-5.0); Alkaline Phosphatase 62 U/L (45-117); Anion Gap 5 (5-15); BUN 14 mg/dL (7-18); BUN/Creat Ratio 16.8 RATIO (10-20); Calcium,Total 9.5 mg/dL (8.5-10.1); Chloride 104 mmol/L (98-107); Creatinine, Serum 0.83 mg/dL (0.55-1.02); EST Glomerular Filtration Rate 69 mL/min (>60); Est Glom Filt Rate - Afr Amer 84 mL/min (>60); Globulin 3.7 g/dL (2.2-4.2); Glucose 83 mg/dL (74-106); Potassium 4.4 mmol/L (3.5-5.1); Protein, Total 7.1 g/dL (6.4-8.2); Sodium Level 140 mmol/L (136-145); Thyroid Stim Hormone (TSH) 0.12 uIU/mL (0.358-3.74)
== END ==
PROVIDERS: PCP Family Medicine Geriatric Medicine; Visit Provider Family Medicine Geriatric Medicine
DX: E55.9 Vitamin D deficiency, unspecified (principal); I10 Essential (primary) hypertension
CPT/HCPCS: 36415; 80053; 82306; 84443; 85025

== ENCOUNTER → 2021-03-24 13:40 | Outpatient (CLI) | payer MEDICARE, OTHER, SELFPAY ==
[2021-02-09 13:28] VITALS: BMI 20.9
[2021-03-24 16:27] LABS: Absolute Lymphocyte Count 1.23 X10^3/uL (0.83-4.51); Absolute Neutrophil Count 3.2 X10^3/uL (2.0-7.7); Basophil# 0.07 X10^3/uL; Basophil% 1.3 % (0-1); Eosinophil# 0.28 X10^3/uL; Eosinophils% 5.1 % (0-5); Hematocrit 34.7 % (37-47); Hemoglobin 10.9 g/dL (12.0-15.0); Lymphocyte # 1.23 X10^3/ul (0.83-4.51); Lymphocyte % 22.6 % (19-41); Mean Corp Hgb Conc 31.4 g/dL (32-36); Mean Corpuscular Hgb 30.8 pg (27.0-32.0); Monocyte# 0.67 X10^3/uL; Monocyte% 12.3 % (0-10); NRBC Flagged by Analyzer 0 % (0-5); Neutrophil # 3.17 X10^3/uL (2.7-7.7); Neutrophil % 58.3 % (47-70); Platelet Count 192 K/mm3 (150-450); RBC Distribution Width CV 12.4 % (11.6-14.6); RBC Distribution Width SD 44.8 fl (35.1-43.9); Red Blood Count 3.54 M/mm3 (4.2-5.4); White Blood Count 5.4 K/mm3 (4.4-11.0)
[2021-03-24 16:56] LABS: Thyroid Stim Hormone (TSH) 0.03 uIU/mL (0.358-3.74)
== END ==
PROVIDERS: PCP Family Medicine Geriatric Medicine; Visit Provider Family Medicine Geriatric Medicine
DX: E03.9 Hypothyroidism, unspecified (principal); D64.9 Anemia, unspecified
CPT/HCPCS: 36415; 84443; 85025

== ENCOUNTER → 2021-03-26 15:57 | Outpatient (CLI) | payer MEDICARE, OTHER, SELFPAY ==
[2021-02-09 13:28] VITALS: BMI 20.9
[2021-03-26 17:25] LABS: Absolute Lymphocyte Count 1.19 X10^3/uL (0.83-4.51); Absolute Neutrophil Count 3.4 X10^3/uL (2.0-7.7); Basophil# 0.06 X10^3/uL; Basophil% 1.1 % (0-1); Eosinophil# 0.26 X10^3/uL; Eosinophils% 4.7 % (0-5); Hematocrit 34.3 % (37-47); Lymphocyte # 1.19 X10^3/ul (0.83-4.51); Lymphocyte % 21.3 % (19-41); Mean Corp Hgb Conc 32.1 g/dL (32-36); Mean Corpuscular Hgb 31.3 pg (27.0-32.0); Mean Corpuscular Volume 97.7 fL (81-99); Mean Platelet Vol. 11.6 fl (6.2-12.0); Monocyte# 0.67 X10^3/uL; NRBC Flagged by Analyzer 0 % (0-5); Neutrophil # 3.39 X10^3/uL (2.7-7.7); Neutrophil % 60.5 % (47-70); Platelet Count 191 K/mm3 (150-450); RBC Distribution Width CV 12.4 % (11.6-14.6); RBC Distribution Width SD 44.4 fl (35.1-43.9); Red Blood Count 3.51 M/mm3 (4.2-5.4); Reticulocyte Count 1.38 % (0.5-1.5); White Blood Count 5.6 K/mm3 (4.4-11.0)
[2021-03-26 19:12] LABS: Ferritin 22 ng/mL (8-252); Iron 38 ug/dL (50-170); Iron Binding Capacity,Total 308 ug/dL (250-450); PERCENT IRON SATURATION 12.3 % (15.0-55.0)
[2021-03-27 08:28] LABS: Vitamin B12 481 pg/mL (211-911)
== END ==
PROVIDERS: PCP Family Medicine Geriatric Medicine; Visit Provider Family Medicine Geriatric Medicine
DX: D64.9 Anemia, unspecified (principal)
CPT/HCPCS: 36415; 82607; 82728; 82746; 83540; 83550; 85025; 85045

== ENCOUNTER 2021-04-14 06:48 | Day surgery (SDC) | payer MEDICARE, OTHER, SELFPAY ==
[2021-04-06 15:00] VITALS: BMI 21.9
[2021-04-14] VITALS (7 sets, daily range): BP systolic 98–130; BP diastolic 55–67; PULSE 70–73; RESP 16; TEMP 36.1–36.5; O2SAT 96–100; BMI 21.4
[2021-04-14] MEDS: Lactated Ringers 1,000 ML 100 ML IV (06:55)
--- NOTE | 2021-04-14 07:31 | HP.PCM_ITS ---
History and Physical Date of Admission: 04/14/21 Date of Service: 04/06/21 Intake Vital Signs 04/06/21 14:57 04/06/21 15:00 Height 5 ft 6 in Weight: 136 lb BMI 20.9 21.9 BP 129/72 H Blood Pressure Location Rt brachial Position Sitting Respiration 16 Intake Visit Reasons: C-Scope anemia Chief Complaint: anemia Genetic Physician Required: No Is patient in pain?: No Allergies latex Adverse Reaction (Verified 04/06/21 15:01) Itching sulfamethoxazole [From Bactrim] Adverse Reaction (Verified 04/06/21 15:01) Nausea trimethoprim [From Bactrim] Adverse Reaction (Verified 04/06/21 15:01) Nausea Medications biotin 1 mg capsule 1 mg PO DAILY 06/29/18 [History Confirmed 04/06/21] calcium carb-mag ox-zinc sulf 1 tab PO DAILY 05/30/19 [History Confirmed 04/06/21] cholecalciferol (vitamin D3) 2,000 unit PO DAILY 05/30/19 [History Confirmed 04/06/21] levothyroxine 100 mcg PO DAILY 05/30/19 [History Confirmed 04/06/21] apixaban 2.5 mg PO BID 06/03/19 [History Confirmed 04/06/21] bv-woq-PU-Wj-Cx-qmvysib-lutein 1 ea PO DAILY 06/03/19 [History Confirmed 04/06/21] acetaminophen 1,000 mg PO Q6H PRN PRN tab 06/26/19 [Rx Confirmed 04/06/21] meclizine 25 mg PO 4X/DAY PRN PRN #28 tab 01/20/20 [Rx Confirmed 04/06/21] escitalopram oxalate 5 mg tablet 5 mg PO DAILY 01/23/20 [History Confirmed 04/06/21] budesonide 3 mg capsule,delayed,extended release 3 mg PO DAILY 02/09/21 [History Confirmed 04/06/21] glucosamine-chondroitin 250 mg-200 mg tablet 2 tab PO DAILY tab 02/09/21 [History Confirmed 04/06/21] metoprolol tartrate 25 mg tablet 25 mg PO BID tab 02/09/21 [History Confirmed 04/06/21] turmeric root extract 500 mg capsule 500 mg PO DAILY 02/09/21 [History Confirmed 04/06/21] PFS Medical History Acquired hypothyroidism Anemia Asthma Complete heart block Delayed wound healing Edema leg Essential (primary) hypertension Hyperlipidemia Malnutrition Microscopic colitis Mild intermittent asthma Nonrheumatic mitral valve insufficiency Persistent atrial fibrillation Personal history of colonic polyps Sick sinus syndrome Thyroid storm Ulcer of left lower extremity with fat layer exposed Ulcer of right lower extremity with fat layer exposed Venous insufficiency Surgical History H/O thyroidectomy History of knee replacement History of permanent cardiac pacemaker placement History of right hip replacement Family History Father CAD (coronary artery disease) Brother Cancer Leukemia Brother Epilepsy Social History Smoking Status: Never smoker alcohol intake: never substance use type: does not use caffeine: Yes Type: tea Number of servings: 1 what type of physical activity do you participate in: other details: WAPA HPI HPI HPI: MARISA SANTIAGO, is a 85 F who presents to the office today for bright red blood per rectum. Patient states she has had this for about 3 to 4 months. Patient's last colonoscopy was December 2018 this was done for chronic diarrhea. Patient was found to have microscopic colitis and has been on budesonide since but patient states she is still having diarrhea nurse not changed with the medication. Patient is known to have diverticulosis as well as hemorrhoids on the last colonoscopy. Patient is on Eliquis for A. fib. Patient denies any abdominal pain with this. ROS General General: Yes weight change; No appetite, fatigue, colon cancer or breast cancer HEENT HEENT: No difficulty swallowing, eye injury, eye surgery, swollen glands or hoarseness Endo Endocrine: Yes thyroid disease; No diabetes mellitus, thyroid cancer, Hair loss, heat intolerance or cold intolerance Skin Skin: No rash or changing moles Musc Musculoskeletal: Yes arthritis; No back problems, rheumatoid arthritis, gout or joint pain Cardio Cardiovascular: Yes pacemaker and heart disease; No murmur, atrial fibrillation, high blood pressure, heart attack, heart stent, palpitations, shortness of breat with exertion or chest pain Psych Psychiatric: Yes depression; No anxiety or hearing voices Resp Respiratory: No shortness of breath, No sleep apnea, No cough, No COPD, No asthma, No emphysema and No wheezing Gastro Gastrointestinal: No abdominal pain, No nausea or vomiting, Yes diarrhea, No constipation, Yes blood in stool, No acid reflux, No hemorrhoids, No ulcers, No gallbladder problem and No black,tarry stools Jese Hematologic: No blood thinners, No blood disorders, No bleeding, Yes anemia and No blood clots Neuro Neurologic: No abnormal hearing, No abnormal speech and No confusion Exam Const General: cooperative, healthy appearing, comfortable and no acute distress Neck Neck: normal visual inspection Resp Effort & Inspection: normal respiratory effort Cardio Rate: regular rate GI Inspection: non-distended Palpation: soft, no guarding and nontender Skin General: no rashes or lesions noted Neuro General: patient oriented x3 Psych Affect: normal affect COVID (Procedure Consent) Procedure Criteria Procedure Criteria: Yes Elective The surgeon/proceduralist and patient have discussed in detail the risk of exposure to and/or potential harm posed by the COVID-19 virus with having a surgery/procedure at this time versus the risk of delaying the surgery/procedure. It is not possible to know either the risk of delaying the surgery or procedure or chance of getting an infection with perfect accuracy, but a joint decision was made between the patient and the surgeon/proceduralist to proceed at this time with the scheduled surgery/procedure as indicated on the consent form. Assessment and Plan Assessment and Plan (1) BRBPR (bright red blood per rectum): Status: Acute Plan - Dr. Billie Ro MD: I have discussed the above with the patient. I have offered the patient colonoscopy for evaluation. May also be random biopsies for diagnosis of diarrhea I have explained the risks/benefits of the procedure and described the procedure. I have discussed the risks with the patient, including but not limited to: infection, bleeding, perforation of the GI tract requiring emergency surgery, inability to complete the procedure, injury to any internal organs, complications of anesthesia, etc. - the patient understands and agrees to proceed. I have answered all the patient's questions to the patient's satisfaction and the patient has no further questions. The patient has been given instructions for the colon cleansing preparation. 1 day of clears, MiraLAX Dulcolax prep Billie Ro M.D. Pager: [phone] [facility] [address] [place] [address], [address] [place] [id number] Office: [phone] Plan Details Other Orders: Orders: Colonoscopy 04/06/21 Coding Level of Care Code Off vis,est,level 3 Diagnoses BRBPR (bright red blood per rectum) K62.5 04/07/21 1441<Electronically signed by Billie Ro MD>Date Billie Ro MD
--- NOTE | 2021-04-14 08:00 | COLBX_PTH ---
PATIENT: MARISA SANTIAGO LOC: EN U#:[id number] AGE/SX: 85/F ROOM: RE04/14/[address]: Dr. Billie Ro MD : 1935 BED: DIS: 04/14/2021 SPEC #: [id number] RECD: 04/14/21 10:34 STATUS: ELI REDennis #: [id number] YOSELYN: 04/14/21 08:[address]: Billie Ro DEPT: SURGICAL PATHOLOGY RECD BY: Cira Varma ENTERED: 04/14/21 13:14 SP TYPE: COLON BX OT DR: Dr. Rod Ochoa MD Tissues: A - COLON BIOPSY B - COLON BIOPSY Procedures: Trichrome (control) Special Stain Group II Surgery Specimen Level IV HEADER OPERATION: Colonoscopy (MAC) PRE-OP DIAGNOSIS: Bright red blood per rectum TISSUE SUBMITTED: A ? Random colonic biopsy, B ? Hepatic flexure polyp biopsy MICROSCOPIC DIAGNOSIS A. Colon, random biopsy: Lymphocytic colitis. See comment. B. Colonic polyp at hepatic flexure, biopsy: Tubular adenoma. Lymphocytic colitis. AM:aura 04/15/2021 COMMENT A. Trichrome stain with matched control was used in the evaluation of this case and does not show a thickened basal plate. MICROSCOPIC DESCRIPTION Slides are reviewed. GROSS DESCRIPTION A - Received in fixative is one container labeled with the patient's name and designated random colon biopsy. The specimen consists of multiple irregular fragments of light salas soft tissue that in aggregate measure 1 x 0.3 x 0.1 cm. The specimen is totally submitted in one cassette. B - Received in fixative is one container labeled with the patient's name and designated hepatic flexure polyp biopsy. The specimen consists of one irregular fragment of light salas soft tissue that measures 0.2 x 0.1 x 0.1 cm. The specimen is totally submitted in one cassette. / AM:aura 04/14/21 TC:3 CPT: 27107 x2, 73600
--- NOTE | 2021-04-14 10:36 | OP.COLON_ITS ---
Patient Name: Tabitha Quinn Procedure Date: 04/14/2021 9:54 AM Date of : 1935 Age: 85 Procedure: Colonoscopy Indications: Chronic diarrhea, Rectal bleeding, previous dx of microscopic colitis in 2019, but diarrhea still on going with budesonide Providers: Billie Ro MD Referring MD: Rod Ochoa MD Medicines: Monitored Anesthesia Care Patient Profile: This is an 85 year old female. Last Colonoscopy: December 2018. Complications: No immediate complications. Procedure: Pre-Anesthesia Assessment: - Prior to the procedure, a History and Physical was performed, and patient medications and allergies were reviewed. The patient's tolerance of previous anesthesia was also reviewed. The risks and benefits of the procedure and the sedation options and risks were discussed with the patient. All questions were answered, and informed consent was obtained. Prior Anticoagulants: The patient has taken Eliquis (apixaban), last dose was 3 days prior to procedure. ASA Grade Assessment: Per anesthesia. After reviewing the risks and benefits, the patient was deemed in satisfactory condition to undergo the procedure. After I obtained informed consent, the scope was passed under direct vision. Throughout the procedure, the patient's blood pressure, pulse, and oxygen saturations were monitored continuously. The Colonoscope was introduced through the anus and advanced to the cecum, identified by the appendiceal orifice, ileocecal valve and palpation. The colonoscopy was performed without difficulty. The patient tolerated the procedure well. The quality of the bowel preparation was good. Scope In: 10:09:05 AM Scope Withdrawal Time 0 hours 7 minutes 0 seconds Scope Out: 10:21:30 AM Total Procedure Duration Time 0 hours 12 minutes 25 seconds Findings: Hemorrhoids were found on perianal exam. A less than 5 mm polyp was found in the hepatic flexure. The polyp was sessile. The polyp was removed with a cold biopsy forceps. Resection and retrieval were complete. Three random biopsies were obtained with cold forceps for histology in a targeted manner in the rectum, in the descending colon and in the transverse colon. Multiple small-mouthed diverticula were found in the sigmoid colon and descending colon. Non-bleeding internal hemorrhoids were found. The hemorrhoids were Grade I (internal hemorrhoids that do not prolapse). Impression: - Hemorrhoids found on perianal exam. - One less than 5 mm polyp at the hepatic flexure, removed with a cold biopsy forceps. Resected and retrieved. - Three random biopsies were obtained in the rectum, in the descending colon and in the transverse colon. Recommendation: - Discharge patient to home. - High fiber diet. - Continue present medications. - Resume Eliquis (apixaban) at prior dose tomorrow. - Await pathology results. - Repeat colonoscopy in 5 years--depending on overall health at that time for surveillance based on pathology results. Procedure Code(s): --- Professional --- 78318, Colonoscopy, flexible; with biopsy, single or multiple Diagnosis Code(s): --- Professional --- K64.9, Unspecified hemorrhoids D12.3, Benign neoplasm of transverse colon (hepatic flexure or splenic flexure) K52.9, Noninfective gastroenteritis and colitis, unspecified K62.5, Hemorrhage of anus and rectum CPT copyright 2017 [employer]. All rights reserved. The codes documented in this report are preliminary and upon receivables specialist review may be revised to meet current compliance requirements. MD Billie Kenee MD 04/14/2021 10:35:50 AM This report has been signed electronically. Number of Addenda: 0 Note Initiated On: 04/14/2021 9:54 AM
--- NOTE | 2021-04-14 10:37 | OP.CCLET_ITS ---
04/14/2021 Rod Ochoa MD [address] [place] [address] Re : Colonoscopy procedure for Tabitha Quinn Dear Dr. Ochoa This procedure was performed on Wednesday, April 14, 2021. My impressions and recommendations are as follows: Impressions : - Hemorrhoids found on perianal exam. - One less than 5 mm polyp at the hepatic flexure, removed with a cold biopsy forceps. Resected and retrieved. - Three random biopsies were obtained in the rectum, in the descending colon and in the transverse colon. Recommendations : - Discharge patient to home. - High fiber diet. - Continue present medications. - Resume Eliquis (apixaban) at prior dose tomorrow. - Await pathology results. - Repeat colonoscopy in 5 years--depending on overall health at that time for surveillance based on pathology results. My findings are described in the full procedure note, which is enclosed. If I can be of further assistance, please feel free to contact me at Doctor phone number(s): , Work: . Sincerely, MD Billie Keene MD 04/14/2021 10:35:50 AM This report has been signed electronically.
== END 2021-04-14 11:45 ==
LOC: EN 06:48 → AC 06:49
PROVIDERS: PCP Family Medicine Geriatric Medicine; Referring Provider Family Medicine Geriatric Medicine; Visit Provider Surgery
PROC: 0DJD8ZZ Inspection of Lower Intestinal Tract, Via Natural or Artificial Opening Endoscopic (ICD-10-PCS; CPT 45378; principal; 2021-04-14 07:55)
DX: K52.832 Lymphocytic colitis (principal); D12.3 Benign neoplasm of transverse colon; K64.0 First degree hemorrhoids; K64.8 Other hemorrhoids; K57.30 Diverticulosis of large intestine without perforation or abscess without bleeding; D64.9 Anemia, unspecified; I48.19 Other persistent atrial fibrillation; I10 Essential (primary) hypertension; F32.9 Major depressive disorder, single episode, unspecified; M19.90 Unspecified osteoarthritis, unspecified site; Z79.01 Long term (current) use of anticoagulants; Z79.899 Other long term (current) drug therapy
CPT/HCPCS: 45380; 88305; 88313; J7120

== ENCOUNTER 2021-04-24 17:42 | Observation (INO) | payer MEDICARE, OTHER, SELFPAY ==
[2021-04-24] VITALS (14 sets, daily range): BP systolic 120–145; BP diastolic 59–77; PULSE 60–77; RESP 11–19; TEMP 36.3–36.7; O2SAT 94–99; BMI 22.0; BMI 20.7; BMI 20.9
--- NOTE | 2021-04-24 17:44 | NURSING ---
1740 STROKE ALERT CALLED.
--- NOTE | 2021-04-24 17:46 | EKG12_ITS ---
Test Reason : STROKE Blood Pressure : / mmHG Vent. Rate : 077 BPM Atrial Rate : 076 BPM P-R Int : 000 ms QRS Dur : 090 ms QT Int : 418 ms P-R-T Axes : 000 017 267 degrees QTc Int : 473 ms Atrial fibrillation with frequent ventricular-paced complexes and with premature ventricular or aberr antly conducted complexes ST & T wave abnormality, consider inferior ischemia ST & T wave abnormality, consider anterolateral ischemia Prolonged QT Abnormal ECG Confirmed by CRISTIANE RUCKER, OSKAR ([id number]), design editor BRANDON POLLACK ([id number]) on 04/27/2021 1:35:49 PM Referred By: KANDY Confirmed By:APOLINAR SAUER MD
--- NOTE | 2021-04-24 17:46 | CT_ITS ---
We are attempting to reach an attending provider to discuss findings. An addendum with communication details will be sent when the communication is complete. EXAM: CT HEAD WITHOUT INTRAVENOUS CONTRAST CLINICAL INDICATION: Neuro deficit, acute, stroke suspected TECHNIQUE: Multiple axial images were obtained of the head without intravenous contrast. This CT exam was performed using one or more of the following dose reduction techniques: automated exposure control, adjustment of the mA and/or kV according to patient size, and/or use of iterative reconstruction technique. This report was created using [employer] report [id number] technology. COMPARISON: 01/19/2020. FINDINGS: BRAIN AND EXTRA-AXIAL SPACES: Prominent CSF spaces overlying the cerebral hemispheres may represent subdural hygromas. They are unchanged. Hypodensities in the white matter of both cerebral hemispheres are chronic white matter ischemic changes. No intra- or extra-axial hemorrhage. Posterior fossa structures are unremarkable. Basal cisterns are patent. BONES/JOINTS: Unremarkable. No discrete lytic or blastic abnormalities. SINUSES: Mucosal thickening in the right maxillary sinus has decreased. Sclerotic wall thickening in the right maxillary sinus consistent with chronic sinusitis. MASTOID AIR CELLS: Unremarkable. Clear. ORBITS: Visualized globes, extraocular muscles, optic nerves and retrobulbar fat appear unremarkable. CT/STROKE Brain/Head without Cont IMPRESSION: 1. No CT evidence of intracranial bleeding, acute ischemic infarct or acute intracranial abnormality at this time. 2. Prominent CSF spaces overlying the cerebral hemispheres may represent subdural hygromas. They are unchanged. 3. Chronic white matter ischemic changes in both cerebral hemispheres are unchanged. 4. Mild decrease in chronic right maxillary sinusitis. Electronically Signed: Butch Sharma MD at 18:00 EDT , Service support ,
--- NOTE | 2021-04-24 17:47 | CT_ITS ---
STUDY: CTA HEAD AND NECK WITH CONTRAST REASON FOR EXAM: Female, 86 years old. Neuro deficit, acute, stroke suspected RADIATION DOSAGE (If Supplied By Facility): CTDIvol = ( 23.57 ) mGy, DLP = ( 549.65 ) mGycm TECHNIQUE: CT angiography was performed with a multi-detector CT scanner. Data acquisition was obtained from the skull base through the vertex following intravenous administration of IV 100mL Isovue-370. MIP images were reconstructed from the axial data set. Post-processing of the angiographic images was performed, with multiplanar reformation and 3D reconstruction. Individualized dose optimization techniques were used for this CT. COMPARISON: No relevant priors. FINDINGS: Normal bilateral petrous carotid arteries. Minimal nonocclusive calcified plaques along the right cavernous carotid artery with a normal supraclinoid bifurcation. Minimal nonocclusive calcified plaques along the left cavernous carotid artery with a normal supraclinoid bifurcation. Normal right A1 segment of the anterior cerebral artery. Normal left A1 segment of the anterior cerebral artery. Normal intact anterior communicating artery (ACOM). Normal bilateral A2 segments of the anterior cerebral arteries. Normal right M1 and M2 segments of the middle cerebral arteries, with a normal M1 bifurcation. Normal left M1 and M2 segments of the middle cerebral arteries, with a normal M1 bifurcation. Normal right posterior communicating artery (PCOM). Normal left posterior communicating artery (PCOM). Normal bilateral vertebral arteries. The right is hypoplastic. Normal basilar artery with a normal basilar bifurcation. The visualized bilateral superior cerebellar (SCA) arteries are normal. Normal bilateral P1, P2 and visualized P3 segments of the posterior cerebral arteries. There is no demonstrated aneurysm of the [place]. There is no demonstrated abnormality of the visualized brain. AORTIC ARCH: Normal visualized aortic arch. Normal origins of the brachiocephalic, left common carotid, and left subclavian arteries. RIGHT CAROTID ARTERIES: Normal right common carotid artery (CCA). Normal right internal carotid bulb. Normal origin of the right internal carotid (ICA) artery without a hemodynamically significant stenosis. Normal visualized cervical portion of the right internal carotid artery. Prominent calcified plaque at the origin of the right external carotid artery (ECA) causing 50% stenosis. LEFT CAROTID ARTERIES: Normal left common carotid artery (CCA). Normal left internal carotid bulb. Normal origin of the left internal carotid (ICA) artery without a hemodynamically significant stenosis. Normal visualized cervical portion of the left internal carotid artery. Normal origin of the left external carotid artery (ECA). VERTEBRAL ARTERIES: Normal bilateral vertebral arteries. The right is hypoplastic. CT/STROKE CTA Head AND Neck W/Con IMPRESSION: 1. No CTA evidence of intracranial aneurysm or significant vaso-occlusive disease of the anterior and posterior intracranial circulation. 2. Widely patent bilateral common carotid arteries, bilateral common carotid bifurcations, bilateral cervical internal carotid arteries and widely patent vertebral arteries. The right vertebral artery is hypoplastic and more hypoplastic intradurally. 3. Normal aortic arch and origins of the great vessels. 4. 9 x 7 mm nodule in the right thyroidectomy site with rim enhancement and central hypodensity worrisome for pathologic node with central necrosis. This is feasible for ultrasound-guided FNA unless there are prior CT neck for comparison. 5. Postsurgical absence of the thyroid gland. N.B. : The above Results were Read Back by Butch Sharma MD to ELSIE CONNOR MD , MD, and understanding confirmed on 04/24/2021 18:19:06 (ET). Electronically Signed: Butch Sharma MD at 18:20 EDT , Service support ,
--- NOTE | 2021-04-24 17:49 | EDS_ITS ---
HPI History of Present Illness Chief Complaint: Neuro S/Sx Informant: patient and EMS Narrative Narrative: Patient presents with a sensation that her right arm is heavy and does not work as well as normal. This started about 1 to 1-1/2 hours ago. There is no pain. There no tingling. No visual changes. No confusion. No chest pain or trouble breathing. No difficulty walking. No recent trauma. She has not had this before. Patient states she had a stressful day. She got scammed earlier in the day. She was talking to her neighbor about this. At some point she noticed that her right arm was not responding normally. Nothing makes her symptoms better or worse. Patient does have a history of intermittent atrial fibrillation, pacer, and is on Eliquis and is taking it. [facility] Medical History Acquired hypothyroidism Anemia Arthritis Asthma Cardiology follow-up encounter Complete heart block Delayed wound healing Edema leg Essential (primary) hypertension History of GI bleed History of IBS History of stress test Hyperlipidemia Malnutrition Microscopic colitis Mild intermittent asthma Non-smoker Nonrheumatic mitral valve insufficiency Persistent atrial fibrillation Personal history of colonic polyps Sick sinus syndrome Thyroid storm Ulcer of left lower extremity with fat layer exposed Ulcer of right lower extremity with fat layer exposed Venous insufficiency 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 Wears glasses Home Medications biotin 1 mg capsule 1 mg PO DAILY 06/29/18 [History Last Taken 04/23/21] cholecalciferol (vitamin D3) 2,000 unit PO DAILY 05/30/19 [History Last Taken 04/23/21] levothyroxine 100 mcg PO DAILY 05/30/19 [History Last Taken 04/23/21] apixaban 2.5 mg PO BID 06/03/19 [History Last Taken 04/23/21] yn-[id number]-VX-Nz-Wf-yxvgbrz-lutein 1 ea PO DAILY 06/03/19 [History Last Taken 04/23/21] escitalopram oxalate 5 mg tablet 5 mg PO DAILY 01/23/20 [History Last Taken 04/23/21] glucosamine-chondroitin 250 mg-200 mg tablet 2 tab PO DAILY tab 02/09/21 [History Last Taken 04/23/21] metoprolol tartrate 25 mg tablet 25 mg PO BID tab 02/09/21 [History Last Taken 04/23/21] turmeric root extract 500 mg capsule 500 mg PO DAILY 02/09/21 [History Last Taken 04/23/21] polysaccharide iron complex [Ferrex 150] 150 mg PO DAILY 04/24/21 [History Last Taken 04/23/21] Allergy/AdvReac Type Severity Reaction Status Date / Time latex AdvReac Itching Verified 04/06/21 15:01 sulfamethoxazole AdvReac Nausea Verified 04/06/21 15:01 [From Bactrim] trimethoprim [From Bactrim] AdvReac Nausea Verified 04/06/21 15:01 Family History Father CAD (coronary artery disease) Brother Cancer Leukemia Brother Epilepsy Surgical History H/O thyroidectomy History of knee replacement History of permanent cardiac pacemaker placement History of right hip replacement Social History Smoking Status: Never smoker alcohol intake: never substance use type: does not use caffeine: Yes Type: tea Number of servings: 1 what type of physical activity do you participate in: other details: [employer] ROS ED Constitutional Constitutional ED: Denies chills or fever(s) Eyes Eyes: Denies diplopia ENT ENT ED: Denies rhinorrhea Cardiovascular Cardiovascular: Denies chest pain or palpitations Respiratory/Chest Respiratory/Chest: Denies cough or dyspnea Gastrointestinal Gastrointestinal: Denies nausea or vomiting Genitourinary Genitourinary ED: Denies dysuria Musculoskeletal Musculoskeletal: Denies arthralgias, back pain or neck pain Integumentary Denies rash Neurologic Neurologic: Reports weakness; Denies headache(s) or paresthesias Hematologic/Lymphatic Hematologic/Lymphatic: Reports easy bleeding and easy bruising Allergic/Immunologic Allergic/Immunologic ED: Denies urticaria EXAM Physical Exam Const Vital Signs: 04/24/21 17:50 04/24/21 18:02 04/24/21 18:05 Temperature 98.1 F 98.1 F Temperature Source Oral Oral Pulse Rate 77 77 Respiratory Rate 17 17 Blood Pressure 145/77 H 145/77 H Blood Pressure Mean 99 99 Pulse Ox 95 95 Oxygen Delivery Method Room Air Room Air Room Air 04/24/21 18:10 04/24/21 18:30 04/24/21 19:00 Temperature Temperature Source Pulse Rate 71 71 77 Respiratory Rate 14 14 15 Blood Pressure 127/64 H 138/64 H 126/59 H Blood Pressure Mean 85 88 81 Pulse Ox 96 95 95 Oxygen Delivery Method Room Air Room Air Room Air 04/24/21 19:18 04/24/21 20:00 Temperature Temperature Source Pulse Rate 70 70 Respiratory Rate 16 19 H Blood Pressure 139/64 H 134/67 H Blood Pressure Mean 89 89 Pulse Ox 97 96 Oxygen Delivery Method Room Air Room Air Positive well nourished and well developed General Appearance ED: well developed and NAD HEENT Reports moist mucous membranes Eyes EOMs intact bilaterally Eyes Narrative: Visual zarco normal by confrontation. Neck supple Chest Wall inspection of chest normal Resp normal respiratory effort and clear to auscultation bilaterally Cardio Rate: regular rate GI normal to inspection, nondistended, normoactive bowel sounds, soft to palpation and non-tender Extremity normal to inspection General Extremety ED: Negative for deformity or tenderness General Extremity: Negative for deformity Neuro oriented x3 Neuro Narrative: See NIH stroke scale. Patient does not lose any point for her right arm. She holds it up for complete 10 seconds without droop. However, she does have some relative weakness more of the tricep and bicep. Sensation of the arm is normal. However, she may have some very mild decreased sensation of the right leg even though she has no symptoms there. However, the exam is quite variable each time I touch there is a slightly different answer. Sensorium / Orientation: alert Psych mental status grossly normal Skin Lesions: no lesions Rashes: no rashes STROKE Vital Signs/Narrative: Vital Signs Temp Pulse Resp BP Pulse Ox 04/24/21 20:00 70 19 H 134/67 H 96 04/24/21 19:18 70 16 139/64 H 97 04/24/21 19:00 77 15 126/59 H 95 04/24/21 18:30 71 14 138/64 H 95 04/24/21 18:10 71 14 127/64 H 96 04/24/21 18:02 98.1 F 77 17 145/77 H 95 04/24/21 17:50 98.1 F 77 17 145/77 H 95 NIHSS Initial: 1a Level of Consciousness: 0 1b LOC Questions (Score 2 if aphasic/stupor): 0 1c LOC Commands (Only score 1st attempt): 0 2 Best Gaze (If aphasic, use reflexive mvmts.): 0 3 Visual: 0 4 Facial Palsy: 0 5 Motor Arm Right (UN = amputation/fusion): 0 5 Motor Arm Left: 0 6 Motor Leg Right: 0 6 Motor Leg Left: 0 7 Limb ataxia (Only + if out of proportion): 0 8 Sensory (Aphasia/stupor=0 or 1, coma=2): 0 9 Best Language: 0 10 Dysarthria (mute, coma=2, intubated=UN): 0 11 Extinction and Inattention (only scored if +): 0 Total Score: 0 MDM MDM MDM Narrative Medical decision making narrative: Patient's blood work does show a mild elevation of troponin. I talked to her again. She denies any chest pain pressure or dyspnea nausea or any symptoms that would correlate with this. Her CT and CTA showed no acute process. There is a cystic structure near the thyroid but she is not having symptoms of this now. She still feels her arm is heavy but overall her exam is more normal. Teleneurology saw and evaluated her also. They agree that this really represents a TIA at this point but should come in for further evaluation and is okay to stay here. I discussed the case with the hospitalist. Lab Data Attestation: I reviewed the patient's lab results. Labs: Laboratory Results - last 24 hr 04/24/21 04/24/21 04/24/21 17:33 17:33 17:55 WBC 7.3 RBC 4.15 L Hgb 12.7 Hct 40.0 MCV 96.4 MCH 30.6 MCHC 31.8 L RDW Std Deviation 41.7 RDW Coeff of Radha 11.9 Plt Count 202 MPV 11.0 Immature Gran % (Auto) 0.400 Neut % (Auto) 62.4 Lymph % (Auto) 21.2 [place] % (Auto) 10.6 H Eos % (Auto) 4.6 Baso % (Auto) 0.8 Absolute Neuts (auto) 4.5 Absolute Lymphs (auto) 1.54 Nucleated RBC % 0 PT 15.7 H INR 1.3 APTT 28.6 Sodium 139 Potassium 3.7 Chloride 106 Carbon Dioxide 28.0 Anion Gap 5 BUN 14 Creatinine 0.83 Estim Creat Clear Calc 48.50 Est GFR (MDRD) Af Amer 84 Est GFR (MDRD) Non-Af 69 BUN/Creatinine Ratio 16.8 Glucose 91 Calcium 9.2 Troponin I High Sens 128 H* Radiography Diagnostic Testing: Radiology Impression Brain CT 04/24/21 17:[address]: 1[address] evidence of intracranial bleeding, acute ischemic infarct or acute intracranial abnormality at this time. 2. Prominent CSF spaces overlying the cerebral hemispheres may represent subdural hygromas. They are unchanged. 3. Chronic white matter ischemic changes in both cerebral hemispheres are unchanged. 4. Mild decrease in chronic right maxillary sinusitis. Electronically Signed: Butch Sharma MD at 18:00 EDT , Service support , ADDENDUM: 04/24/21 1809 IMPRESSION: 1. No CT evidence of intracranial bleeding, acute ischemic infarct or acute intracranial abnormality at this time. 2. Prominent CSF spaces overlying the cerebral hemispheres may represent subdural hygromas. They are unchanged. 3. Chronic white matter ischemic changes in both cerebral hemispheres are unchanged. 4. Mild decrease in chronic right maxillary sinusitis. N.B. : The above Results were Read Back by Butch Sharma MD to ZION CONNOR MD , MD, and understanding confirmed on 04/24/2021 18:02:14 (ET). Electronically Signed: Butch Sharma MD at 18:00 EDT , Service support , Head/Neck CTA 04/24/21 17:47 IMPRESSION: 1. No CTA evidence of intracranial aneurysm or significant vaso-occlusive disease of the anterior and posterior intracranial circulation. 2. Widely patent bilateral common carotid arteries, bilateral common carotid bifurcations, bilateral cervical internal carotid arteries and widely patent vertebral arteries. The right vertebral artery is hypoplastic and more hypoplastic intradurally. 3. Normal aortic arch and origins of the great vessels. 4. 9 x 7 mm nodule in the right thyroidectomy site with rim enhancement and central hypodensity worrisome for pathologic node with central necrosis. This is feasible for ultrasound-guided FNA unless there are prior CT neck for comparison. 5. Postsurgical absence of the thyroid gland. N.B. : The above Results were Read Back by Butch Sharma MD to ZION CONNOR MD , , and understanding confirmed on 04/24/2021 18:19:06 (ET). Electronically Signed: Butch Sharma MD at 18:20 EDT , Service support , ADDENDUM: 04/24/21 1827 IMPRESSION: 1. No CTA evidence of intracranial aneurysm or significant vaso-occlusive disease of the anterior and posterior intracranial circulation. 2. Widely patent bilateral common carotid arteries, bilateral common carotid bifurcations, bilateral cervical internal carotid arteries and widely patent vertebral arteries. The right vertebral artery is hypoplastic and more hypoplastic intradurally. 3. Normal aortic arch and origins of the great vessels. 4. 9 x 7 mm nodule in the right thyroidectomy site with rim enhancement and central hypodensity worrisome for pathologic node with central necrosis. This is feasible for ultrasound-guided FNA unless there are prior CT neck for comparison. 5. Postsurgical absence of the thyroid gland. N.B. : The above Results were Read Back by Butch Sharma MD to ZION CONNOR MD , , and understanding confirmed on 04/24/2021 18:19:06 (ET). Electronically Signed: Butch Sharma MD at 18:20 EDT , Service support , Chest X-Ray 04/24/21 18:15 IMPRESSION: No acute findings in the chest and unchanged when compared to 01/19/2020. Electronically Signed: Butch Sharma MD at 20:04 EDT , Service support , Discharge Plan Dx/Rx/DC Orders Clinical Impression: Brain TIA, Elevated troponin Disposition Disposition: Acute Care [facility]
--- NOTE | 2021-04-24 17:49 | NURSING ---
FACESHEET FAXED TO [facility]
[2021-04-24 17:53] LABS: Absolute Lymphocyte Count 1.54 X10^3/uL (0.83-4.51); Absolute Neutrophil Count 4.5 X10^3/uL (2.0-7.7); Basophil# 0.06 X10^3/uL; Basophil% 0.8 % (0-1); Eosinophil# 0.33 X10^3/uL; Eosinophils% 4.6 % (0-5); Hemoglobin 12.7 g/dL (12.0-15.0); Lymphocyte # 1.54 X10^3/ul (0.83-4.51); Lymphocyte % 21.2 % (19-41); Mean Corp Hgb Conc 31.8 g/dL (32-36); Mean Corpuscular Hgb 30.6 pg (27.0-32.0); Mean Corpuscular Volume 96.4 fL (81-99); Monocyte# 0.77 X10^3/uL; Monocyte% 10.6 % (0-10); NRBC Flagged by Analyzer 0 % (0-5); Neutrophil # 4.52 X10^3/uL (2.7-7.7); Neutrophil % 62.4 % (47-70); Platelet Count 202 K/mm3 (150-450); RBC Distribution Width CV 11.9 % (11.6-14.6); RBC Distribution Width SD 41.7 fl (35.1-43.9); Red Blood Count 4.15 M/mm3 (4.2-5.4); White Blood Count 7.3 K/mm3 (4.4-11.0)
--- NOTE | 2021-04-24 18:15 | RAD_ITS ---
EXAM: XR CHEST, 1 VIEW CLINICAL INDICATION: Neuro deficit, acute, stroke suspected TECHNIQUE: Frontal view of the chest. This report was created using [employer] report generation technology. COMPARISON: 01/19/2020. FINDINGS: LUNGS AND PLEURAL SPACES: Unremarkable. No consolidation or edema. No pneumothorax. No effusion. HEART: Cardiomegaly. MEDIASTINUM: Central airways and mediastinal contour are unremarkable. BONES/JOINTS: Unremarkable. SOFT TISSUES: Unremarkable. TUBES, LINES AND DEVICES: Single-chamber pacing lead tip remains in the right ventricle. RAD/Chest 1 View IMPRESSION: No acute findings in the chest and unchanged when compared to 01/19/2020. Electronically Signed: Butch Sharma MD at 20:04 EDT , Service support ,
[2021-04-24 18:18] LABS: Anion Gap 5 (5-15); BUN 14 mg/dL (7-18); BUN/Creat Ratio 16.8 RATIO (10-20); Calcium,Total 9.2 mg/dL (8.5-10.1); Chloride 106 mmol/L (98-107); Creatinine, Serum 0.83 mg/dL (0.55-1.02); EST Glomerular Filtration Rate 69 mL/min (>60); Est Glom Filt Rate - Afr Amer 84 mL/min (>60); Glucose 91 mg/dL (74-106); Potassium 3.7 mmol/L (3.5-5.1); Sodium Level 139 mmol/L (136-145); Troponin-I HS 128 pg/mL (3.0-54.0)
[2021-04-24 18:18] LABS: International Normalized Ratio 1.3; Prothrombin Time (Protime)PT. 15.7 SECONDS (11.7-14.9)
[2021-04-24 18:19] LABS: Partial Thromboplast Time 28.6 Seconds (24.1-36.2)
--- NOTE | 2021-04-24 21:36 | HP.PCM.HOS_ITS ---
HPI - General General Date of Admission: 04/24/21 HPI Narrative MARISA SANTIAGO, is a 86 F with a significant history of hypertension and atrial fibrillation who presents to the emergency department with weakness of her right upper extremity. Her symptoms started on the same day of presentation and is persisted. At the emergency department NIH was 0. Teleneurology was consulted and recommendation was made for patient to stay at the hospital for further stroke work-up. [facility] Medical History Acquired hypothyroidism Anemia Arthritis Asthma Cardiology follow-up encounter Complete heart block Delayed wound healing Edema leg Essential (primary) hypertension History of GI bleed History of IBS History of stress test Hyperlipidemia Malnutrition Microscopic colitis Mild intermittent asthma Non-smoker Nonrheumatic mitral valve insufficiency Persistent atrial fibrillation Personal history of colonic polyps Rheumatoid arthritis Sick sinus syndrome Stroke/cerebrovascular accident Thyroid storm Ulcer of left lower extremity with fat layer exposed Ulcer of right lower extremity with fat layer exposed Venous insufficiency 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 Wears glasses Home Medications biotin 1 mg capsule 1 mg PO DAILY 06/29/18 [History Last Taken 04/23/21] cholecalciferol (vitamin D3) 2,000 unit PO DAILY 05/30/19 [History Last Taken 04/23/21] levothyroxine 100 mcg PO DAILY 05/30/19 [History Last Taken 04/23/21] apixaban 2.5 mg PO BID 06/03/19 [History Last Taken 04/23/21] ss-tvg-SM-Ae-Uo-zxfachc-lutein 1 ea PO DAILY 06/03/19 [History Last Taken 04/23/21] escitalopram oxalate 5 mg tablet 5 mg PO DAILY 01/23/20 [History Last Taken 04/23/21] glucosamine-chondroitin 250 mg-200 mg tablet 2 tab PO DAILY tab 02/09/21 [History Last Taken 04/23/21] metoprolol tartrate 25 mg tablet 25 mg PO BID tab 02/09/21 [History Last Taken 04/23/21] turmeric root extract 500 mg capsule 500 mg PO DAILY 02/09/21 [History Last Taken 04/23/21] polysaccharide iron complex [Ferrex 150] 150 mg PO DAILY 04/24/21 [History Last Taken 04/23/21] Allergy/AdvReac Type Severity Reaction Status Date / Time latex AdvReac Itching Verified 04/06/21 15:01 sulfamethoxazole AdvReac Nausea Verified 04/06/21 15:01 [From Bactrim] trimethoprim [From Bactrim] AdvReac Nausea Verified 04/06/21 15:01 Family History Father CAD (coronary artery disease) Brother Cancer Leukemia Brother Epilepsy Surgical History H/O thyroidectomy History of knee replacement History of permanent cardiac pacemaker placement History of right hip replacement Social History Smoking Status: Never smoker alcohol intake: never substance use type: does not use caffeine: Yes Type: tea Number of servings: 1 what type of physical activity do you participate in: other details: [employer] (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 Denies dyspnea on exertion, orthopnea and paroxysmal nocturnal dyspnea Respiratory/Chest: Denies cough, excessive phlegm production, shortness of breath with exertion and wheezing Gastrointestinal: Denies abdominal pain, coffee ground emesis, constipation, diarrhea, dyspepsia, hematemesis, hematochezia, loose stools, melena, nausea, vomiting or other Genitourinary: Denies burning urination, difficulty urinating, dysuria, hematuria, nocturia, urinary frequency, urinary hesitancy, urinary incontinence, urinary urgency or other Musculoskeletal: Denies arthralgias, back pain, joint pain, joint stiffness, joint swelling, myalgias, neck pain or other Neurologic: Denies abnormal gait, abnormal speech, confusion, disequilibrium, d izziness, headache(s), numbness, paresthesias, seizure-like activity, seizures, syncope, tingling, tremor(s) or other. A weakness of right upper extremity. Psychiatric: Denies anxiety, depression, homicidal ideation, suicidal ideation or other Endocrinology: Denies change in body appearance, cold intolerance, excessive sweating, heat intolerance, polydipsia, polyuria or other Hematologic/Lymphatic: Denies anemia, easy bleeding, easy bruising, lymphadenopathy or other Integumentary: Denies ulcer on buttocks. Allergic/Immunologic: Denies rhinitis, hives, eczema, asthma or other Vital Signs Vital Signs Vital Signs: 04/24/21 17:50 04/24/21 18:02 04/24/21 18:05 Temperature 98.1 F 98.1 F Temperature Source Oral Oral Pulse Rate 77 77 Respiratory Rate 17 17 Blood Pressure 145/77 H 145/77 H Blood Pressure Mean 99 99 Pulse Ox 95 95 Oxygen Delivery Method Room Air Room Air Room Air 04/24/21 18:10 04/24/21 18:30 04/24/21 19:00 Temperature Temperature Source Pulse Rate 71 71 77 Respiratory Rate 14 14 15 Blood Pressure 127/64 H 138/64 H 126/59 H Blood Pressure Mean 85 88 81 Pulse Ox 96 95 95 Oxygen Delivery Method Room Air Room Air Room Air 04/24/21 19:18 04/24/21 20:00 Temperature Temperature Source Pulse Rate 70 70 Respiratory Rate 16 19 H Blood Pressure 139/64 H 134/67 H Blood Pressure Mean 89 89 Pulse Ox 97 96 Oxygen Delivery Method Room Air Room Air Weight Weight: 62 kg Body Mass Index (BMI) 20.7 Physical Exam Narrative Physical exam: General: Well-nourished, well-developed, no acute distress Head: Normocephalic, atraumatic, no tenderness Eyes: PERRLA, EOMI ENT, no trauma, moist mucous membranes, no rhinorrhea Neck: Nontender, full range of motion, no spinal tenderness, deformities, step- off CVS: Regular rate and rhythm Respiratory no acute distress, clear to auscultation bilaterally, chest wall nontender, no wheezing Abdomen: Soft, nontender, nondistended, normal bowel sounds, no masses : Deferred Back: Nontender, no CVA tenderness, no midline spinal tenderness, deformities, s tep-offs Extremities: Nontender full range of motion, no trauma Skin: Normal color, no trauma, abrasions Neuro: Alert, oriented, cranial nerves II through XII grossly intact. No dysmetria. Deep tendon reflexes not hyperreflexia throughout. Strength in right upper extremity 4 out of 5. Strength in right lower extremity 5 out of 5. Strength in left upper and left lower extremity 5 out of 5. Psychiatry: Normal mood. Normal affect. Not depressed. Not anxious. Results Lab / Micro Data Result Diagrams: 04/24/21 17:33 04/24/21 17:33 Labs: Laboratory Results - last 24 hr 04/24/21 17:33: WBC 7.3, RBC 4.15 L, Hgb 12.7, Hct 40.0, MCV 96.4, MCH 30.6, MCHC 31.8 L, RDW Std Deviation 41.7, RDW Coeff of Radha 11.9, Plt Count 202, MPV 11.0, Immature Gran % (Auto) 0.400, Neut % (Auto) 62.4, Lymph % (Auto) 21.2, [place] % (Auto) 10.6 H, Eos % (Auto) 4.6, Baso % (Auto) 0.8, Absolute Neuts (auto) 4.5, Absolute Lymphs (auto) 1.54, Nucleated RBC % 0 04/24/21 17:33: Sodium 139, Potassium 3.7, Chloride 106, Carbon Dioxide 28.0, Anion Gap 5, BUN 14, Creatinine 0.83, Estim Creat Clear Calc 48.50, Est GFR (MDRD) Af Amer 84, Est GFR (MDRD) Non-Af 69, BUN/Creatinine Ratio 16.8, Glucose 91, Calcium 9.2, Troponin I High Sens 128 H* 04/24/21 17:55: PT 15.7 H, INR 1.3, APTT 28.[address] 04/24/21 17:46 IMPRESSION: 1. No CT evidence of intracranial bleeding, acute ischemic infarct or acute intracranial abnormality at this time. 2. Prominent CSF spaces overlying the cerebral hemispheres may represent subdural hygromas. They are unchanged. 3. Chronic white matter ischemic changes in both cerebral hemispheres are unchanged. 4. Mild decrease in chronic right maxillary sinusitis. Electronically Signed: Butch Sharma MD at 18:00 EDT , Service support , ADDENDUM: 04/24/21 1809 IMPRESSION: 1. No CT evidence of intracranial bleeding, acute ischemic infarct or acute intracranial abnormality at this time. 2. Prominent CSF spaces overlying the cerebral hemispheres may represent subdural hygromas. They are unchanged. 3. Chronic white matter ischemic changes in both cerebral hemispheres are unchanged. 4. Mild decrease in chronic right maxillary sinusitis. N.B. : The above Results were Read Back by Butch Sharma MD to ELSIE CONNOR MD, MD, and understanding confirmed on 04/24/2021 18:02:14 (ET). Electronically Signed: Butch Sharma MD at 18:00 EDT , Service support , Head/Neck CTA 04/24/21 17:47 IMPRESSION: 1. No CTA evidence of intracranial aneurysm or significant vaso-occlusive disease of the anterior and posterior intracranial circulation. 2. Widely patent bilateral common carotid arteries, bilateral common carotid bifurcations, bilateral cervical internal carotid arteries and widely patent vertebral arteries. The right vertebral artery is hypoplastic and more hypoplastic intradurally. 3. Normal aortic arch and origins of the great vessels. 4. 9 x 7 mm nodule in the right thyroidectomy site with rim enhancement and central hypodensity worrisome for pathologic node with central necrosis. This is feasible for ultrasound-guided FNA unless there are prior CT neck for comparison. 5. Postsurgical absence of the thyroid gland. N.B. : The above Results were Read Back by Butch Sharma MD to ELSIE CONNOR MD, MD, and understanding confirmed on 04/24/2021 18:19:06 (ET). Electronically Signed: Butch Sharma MD at 18:20 EDT , Service support , ADDENDUM: 04/24/21 1827 IMPRESSION: 1. No CTA evidence of intracranial aneurysm or significant vaso-occlusive disease of the anterior and posterior intracranial circulation. 2. Widely patent bilateral common carotid arteries, bilateral common carotid bifurcations, bilateral cervical internal carotid arteries and widely patent vertebral arteries. The right vertebral artery is hypoplastic and more hypoplastic intradurally. 3. Normal aortic arch and origins of the great vessels. 4. 9 x 7 mm nodule in the right thyroidectomy site with rim enhancement and central hypodensity worrisome for pathologic node with central necrosis. This is feasible for ultrasound-guided FNA unless there are prior CT neck for comparison. 5. Postsurgical absence of the thyroid gland. N.B. : The above Results were Read Back by Butch Sharma MD to ELSIE CONNOR MD, MD, and understanding confirmed on 04/24/2021 18:19:06 (ET). Electronically Signed: Butch Sharma MD at 18:20 EDT , Service support , Chest X-Ray 04/24/21 18:15 IMPRESSION: No acute findings in the chest and unchanged when compared to 01/19/2020. Electronically Signed: Butch Sharma MD at 20:04 EDT , Service support , Assessment & Plan Assessment/Plan (1) CVA (cerebral vascular accident): PLAN: Acute CVA NINDS NIH Scale was 0 Head CTA interpreted by myself and radiologist did not show any acute brain pathology. Head and neck CTA with no critical stenosis. -Check Hba1c, Lipid level Physical therapy, and occupational therapy and to work with patient. N.p.o. until bedside swallow eval. Daily aspirin. High intensity statin Lipid profile and A1c ordered. Permissive hypertension. Control blood pressure with labetalol for systolic blood pressure of more than 220 or diastolic blood pressure of more than 120. MRI brain Echocardiogram ordered. History of A. fib: Apixaban continued Hold metoprolol for permissive hypertension. Acquired Hypothyroidism: Synthroid continued DVT prophylaxis:Apixaban continued Charges/Coding Visit Charges OBSV E&M: 46660 Initial observation care L3
--- NOTE | 2021-04-24 23:12 | ECHOCS_ITS ---
Reason For Study: TIA/CVA Procedure This was a 2D Doppler, Color Flow transthoracic echocardiogram. The study was technically difficult. Exam performed portable in patient room. Left Ventricle Normal LV size. The estimated ejection fraction is EF 50-55 %. Atria The left atrium is moderately enlarged. The right atrium is severely enlarged. Mitral Valve The mitral valve is structurally normal. No prolapse or stenosis seen. Mild-Moderate (1-2+) mitral valve insufficiency. Tricuspid Valve Normal tricuspid valve. Moderate (2+) tricuspid valve insufficiency. Aortic Valve Mild diffuse aortic valve calcification. Mild (1+) aortic valve insufficiency. Pulmonic Valve The pulmonic valve is not well visualized. Great Vessels Normal aortic root. Pericardium/Pleural No pericardial effusion. Medication Negative bubble study on previous echo. Diluted definity 2.5ml given slow IV push to enhance endocardial definition. MMode/2D Measurements & Calculations LVIDd: 4.2 cm IVSd: 1.2 cm Ao root diam: 3.3 cm LVIDs: 2.7 cm LVPWd: 1.1 cm FS: 36.0 % LAV(MOD-sp4): 103.6 ml LA A4 area: 27.2 cm2 LA dimension(2D): 4.4 cm RA A4 area: 19.9 cm2 Doppler Measurements & Calculations MV E max gaston: 67.1 cm/sec Ao V2 max: 139.6 cm/sec LV V1 max: 95.7 cm/sec Ao max P.8 mmHg LV V1 max P.7 mmHg PA V2 max: 73.8 cm/sec TR max gaston: 244.2 cm/sec TR max P.0 mmHg ECHO/Echo Complete W/ Contrast Interpretation Summary The estimated ejection fraction is EF 50-55 %. TDS Pacemaker lead seen in R.side RVSP calculated 33mmhg No significant changes from prior Echo Ordering Physician: Ariel Warner Referring Physician: Rod Ochoa Chi Performed By: Samreen Pritchard RDCS
--- NOTE | 2021-04-24 23:50 | NURSING ---
emergency documentation started at 2300
[2021-04-24] MEDS: APIXABAN 2.5 MG TABLET PO (23:53)
[2021-04-25] VITALS (11 sets, daily range): BP systolic 104–164; BP diastolic 64–82; PULSE 67–72; RESP 18; TEMP 36.4–36.6; O2SAT 95–100
[2021-04-25] MEDS: Levothyroxine 100 MCG Tablet PO (06:13)
[2021-04-25 06:17] LABS: Absolute Lymphocyte Count 0.95 X10^3/uL (0.83-4.51); Absolute Neutrophil Count 2.7 X10^3/uL (2.0-7.7); Basophil# 0.08 X10^3/uL; Basophil% 1.7 % (0-1); Eosinophil# 0.33 X10^3/uL; Eosinophils% 7.1 % (0-5); Lymphocyte # 0.95 X10^3/ul (0.83-4.51); Lymphocyte % 20.5 % (19-41); Mean Corp Hgb Conc 32.4 g/dL (32-36); Mean Corpuscular Hgb 30.9 pg (27.0-32.0); Mean Corpuscular Volume 95.4 fL (81-99); Mean Platelet Vol. 10.7 fl (6.2-12.0); Monocyte# 0.53 X10^3/uL; Monocyte% 11.4 % (0-10); NRBC Flagged by Analyzer 0 % (0-5); Neutrophil # 2.72 X10^3/uL (2.7-7.7); Neutrophil % 58.9 % (47-70); Platelet Count 165 K/mm3 (150-450); RBC Distribution Width CV 11.9 % (11.6-14.6); RBC Distribution Width SD 41.5 fl (35.1-43.9); Red Blood Count 3.88 M/mm3 (4.2-5.4); White Blood Count 4.6 K/mm3 (4.4-11.0)
[2021-04-25 06:46] LABS: Anion Gap 3 (5-15); BUN 11 mg/dL (7-18); BUN/Creat Ratio 16.3 RATIO (10-20); Calcium,Total 8.6 mg/dL (8.5-10.1); Chloride 109 mmol/L (98-107); Cholesterol 166 mg/dL (200); Creatinine, Serum 0.68 mg/dL (0.55-1.02); EST Glomerular Filtration Rate 88 mL/min (>60); Est Glom Filt Rate - Afr Amer 107 mL/min (>60); Estimated Creatinine Clearance 40.71 ml/min; Glucose 83 mg/dL (74-106); High Density Lipoprotein 66 mg/dL; Potassium 3.7 mmol/L (3.5-5.1); Sodium Level 141 mmol/L (136-145); Triglycerides 58 mg/dL; Very Low Density Lipoprotein 12 mg/dL (5-40)
[2021-04-25 08:22] LABS: Troponin-I HS 139 pg/mL (3.0-54.0)
[2021-04-25] MEDS: Aspirin 81 MG TAB.CHEW PO (08:31)
[2021-04-25] MEDS: Iron Polysaccharide Complex 150 MG CAPSULE PO (08:31)
[2021-04-25] MEDS: Multivitamin (Healthy Eyes) Capsule 1 CAP PO (08:31)
[2021-04-25] MEDS: Escitalopram Oxalate 10 MG Tablet 5 MG PO (08:32)
[2021-04-25] MEDS: Cholecalciferol (VIT D3) 25 MCG TABLET (1,000 UNITS) 50 MCG PO (08:32)
[2021-04-25] MEDS: APIXABAN 2.5 MG TABLET PO ×2 (08:32→21:21)
[2021-04-25 08:48] LABS: Hemoglobin A1c 5.2 % (3.8-5.6)
--- NOTE | 2021-04-25 09:01 | CT_ITS ---
STUDY: CT BRAIN WITHOUT CONTRAST REASON FOR EXAM: Female, 86 years old. Follow-up for stroke RADIATION DOSAGE (If Supplied By Facility): CTDIvol = ( 44.99 ) mGy, DLP = ( 779.24 ) mGycm TECHNIQUE: Transaxial CT imaging of the brain was performed without administration of intravenous contrast material. Individualized dose optimization techniques were used for this CT. COMPARISON: 04/24/2021 FINDINGS: Normal soft tissue structures. Normal calvarium. There is mild cerebral atrophy with widening of the extra-axial spaces and ventricular dilatation. There are areas of decreased attenuation within the white matter tracts of the supratentorial brain, consistent with microvascular disease changes. Normal basal ganglia and thalami. Normal brainstem. Normal cerebellum. There is no intracranial hemorrhage. There are no findings of an acute ischemic infarction. Air-fluid level in the right x-ray sinus consistent with acute sinusitis. CT/Brain/Head without Contrast IMPRESSION: Chronic involutional changes of the brain. Electronically Signed: Ryan Colunga MD at 18:39 EDT Tel , Service support ,
--- NOTE | 2021-04-25 09:02 | TELEMED_ITS ---
[facility] Telemed has confirmed receipt of a request for visit. This document confirms receipt of the order initiating the consult. To find the results of the consultation, please view the patient's reports for the scanned Telemed Consult.
--- NOTE | 2021-04-25 09:05 | PN.HOSP_ITS ---
Subjective Subjective Patient was seen and examined. She still has weakness in the right upper extremity. Cannot have MRI because of pacemaker. Objective Data Objective Data Vital Signs: Vital Signs Temp Pulse Resp BP Pulse Ox 97.5 F L 71 18 149/82 H 100 04/25/21 07:35 04/25/21 07:35 04/25/21 07:35 04/25/21 07:35 04/25/21 07:35 Oxygen Delivery Method Room Air Weight: 62.7 kg Body Mass Index (BMI) 20.9 Intake & Output: Intake and Output for Last 24 Hours 04/23/21 04/24/21 04/25/21 23:59 23:59 23:59 Intake Total 240 / 240 Balance 240 / 240 Lab / Micro Data Result Diagrams: 04/25/21 06:05 04/25/21 06:05 Labs: Laboratory Results - last 24 hr 04/24/21 17:33: WBC 7.3, RBC 4.15 L, Hgb 12.7, Hct 40.0, MCV 96.4, MCH 30.6, MCHC 31.8 L, RDW Std Deviation 41.7, RDW Coeff of Radha 11.9, Plt Count 202, MPV 11.0, Immature Gran % (Auto) 0.400, Neut % (Auto) 62.4, Lymph % (Auto) 21.2, Conway % (Auto) 10.6 H, Eos % (Auto) 4.6, Baso % (Auto) 0.8, Absolute Neuts (auto) 4.5, Absolute Lymphs (auto) 1.54, Nucleated RBC % 0 04/24/21 17:33: Sodium 139, Potassium 3.7, Chloride 106, Carbon Dioxide 28.0, Anion Gap 5, BUN 14, Creatinine 0.83, Estim Creat Clear Calc 48.50, Est GFR (MDRD) Af Amer 84, Est GFR (MDRD) Non-Af 69, BUN/Creatinine Ratio 16.8, Glucose 91, Calcium 9.2, Troponin I High Sens 128 H* 04/24/21 17:55: PT 15.7 H, INR 1.3, APTT 28.6 04/25/21 06:05: WBC 4.6, RBC 3.88 L, Hgb 12.0, Hct 37.0, MCV 95.4, MCH 30.9, MCHC 32.4, RDW Std Deviation 41.5, RDW Coeff of Radha 11.9, Plt Count 165, MPV 10.7, Immature Gran % (Auto) 0.400, Neut % (Auto) 58.9, Lymph % (Auto) 20.5, Conway % (Auto) 11.4 H, Eos % (Auto) 7.1 H, Baso % (Auto) 1.7 H, Absolute Neuts (auto) 2.7, Absolute Lymphs (auto) 0.95, Nucleated RBC % 0 04/25/21 06:05: Sodium 141, Potassium 3.7, Chloride 109 H, Carbon Dioxide 29.0, Anion Gap 3 L, BUN 11, Creatinine 0.68, Estim Creat Clear Calc 40.71, Est GFR (MDRD) Af Amer 107, Est GFR (MDRD) Non-Af 88, BUN/Creatinine Ratio 16.3, Glucose 83, Calcium 8.6, Triglycerides 58, Cholesterol 166, LDL Cholesterol 88, VLDL Cholesterol 12, HDL Cholesterol 66 04/25/21 06:05: Hemoglobin A1c 5.2 04/25/21 07:35: Troponin I High Sens 139 H* Radiography Diagnostic Testing: Radiology Impression Brain CT 04/24/21 17:46 IMPRESSION: 1. No CT evidence of intracranial bleeding, acute ischemic infarct or acute intracranial abnormality at this time. 2. Prominent CSF spaces overlying the cerebral hemispheres may represent subdural hygromas. They are unchanged. 3. Chronic white matter ischemic changes in both cerebral hemispheres are unchanged. 4. Mild decrease in chronic right maxillary sinusitis. Electronically Signed: Butch Sharma MD at 18:00 EDT , Service support , ADDENDUM: 04/24/21 2283 IMPRESSION: 1. No CT evidence of intracranial bleeding, acute ischemic infarct or acute intracranial abnormality at this time. 2. Prominent CSF spaces overlying the cerebral hemispheres may represent subdural hygromas. They are unchanged. 3. Chronic white matter ischemic changes in both cerebral hemispheres are unchanged. 4. Mild decrease in chronic right maxillary sinusitis. N.B. : The above Results were Read Back by Butch Sharma MD to ELSIE CONNOR MD , , and understanding confirmed on 04/24/2021 18:02:14 (ET). Electronically Signed: Butch Sharma MD at 18:00 EDT , Service support , Head/Neck CTA 04/24/21 17:47 IMPRESSION: 1. No CTA evidence of intracranial aneurysm or significant vaso-occlusive disease of the anterior and posterior intracranial circulation. 2. Widely patent bilateral common carotid arteries, bilateral common carotid bifurcations, bilateral cervical internal carotid arteries and widely patent vertebral arteries. The right vertebral artery is hypoplastic and more hypoplastic intradurally. 3. Normal aortic arch and origins of the great vessels. 4. 9 x 7 mm nodule in the right thyroidectomy site with rim enhancement and central hypodensity worrisome for pathologic node with central necrosis. This is feasible for ultrasound-guided FNA unless there are prior CT neck for comparison. 5. Postsurgical absence of the thyroid gland. N.B. : The above Results were Read Back by Butch Sharma MD to ELSIE CONNOR MD , MD, and understanding confirmed on 04/24/2021 18:19:06 (ET). Electronically Signed: Butch Shamra MD at 18:20 EDT , Service support , ADDENDUM: 04/24/21 1827 IMPRESSION: 1. No CTA evidence of intracranial aneurysm or significant vaso-occlusive disease of the anterior and posterior intracranial circulation. 2. Widely patent bilateral common carotid arteries, bilateral common carotid bifurcations, bilateral cervical internal carotid arteries and widely patent vertebral arteries. The right vertebral artery is hypoplastic and more hypoplastic intradurally. 3. Normal aortic arch and origins of the great vessels. 4. 9 x 7 mm nodule in the right thyroidectomy site with rim enhancement and central hypodensity worrisome for pathologic node with central necrosis. This is feasible for ultrasound-guided FNA unless there are prior CT neck for comparison. 5. Postsurgical absence of the thyroid gland. N.B. : The above Results were Read Back by Butch Sharma MD to ELSIE CONNOR MD , MD, and understanding confirmed on 04/24/2021 18:19:06 (ET). Electronically Signed: Butch Sharma MD at 18:20 EDT , Service support , Chest X-Ray 04/24/21 18:15 IMPRESSION: No acute findings in the chest and unchanged when compared to 01/19/2020. Electronically Signed: Butch Sharma MD at 20:04 EDT , Service support , Physical Exam Narrative Physical exam: General: Well-nourished, well-developed, no acute distress Head: Normocephalic, atraumatic, no tenderness Eyes: PERRLA, EOMI ENT, no trauma, moist mucous membranes, no rhinorrhea Neck: Nontender, full range of motion, no spinal tenderness, deformities, step- off CVS: Regular rate and rhythm Respiratory no acute distress, clear to auscultation bilaterally, chest wall nontender, no wheezing Abdomen: Soft, nontender, nondistended, normal bowel sounds, no masses : Deferred Back: Nontender, no CVA tenderness, no midline spinal tenderness, deformities, step-offs Extremities: Nontender full range of motion, no trauma Skin: Normal color, no trauma, abrasions Neuro: Alert, oriented, cranial nerves II through XII grossly intact. No dysmetria. Deep tendon reflexes not hyperreflexia throughout. Strength in right upper extremity 4 out of 5. Strength in right lower extremity 5 out of 5. Strength in left upper and left lower extremity 5 out of 5. Psychiatry: Normal mood. Normal affect. Not depressed. Not anxious. Assessment & Plan Assessment/Plan (1) CVA (cerebral vascular accident): PLAN: 1. Acute CVA, still with right-sided weakness NIHSS score is 2 CT of the brain showed no acute abnormality. CTA of the head and neck was also unremarkable except for a 9 x 7 mm right thyroid nodule HbA1c is 5.2, total cholesterol is 1 6, LDL is 88, HDL is 66 2D echo is pending Cannot do MRI on account of pacemaker; repeat CT of the brain SOC consult ordered PT/OT/ST to evaluate and treat Continue apixaban, aspirin, statin Continue to hold for permissive hypertension 2. Chronic atrial fibrillation, continue on apixaban Hold metoprolol for permissive hypertension. 3. Hypothyroidism, continue Synthroid Charges/Coding Visit Charges OBSV E&M: 97970 Subsequent observation care L3
--- NOTE | 2021-04-25 11:29 | DS.PCM_ITS ---
Providers Date of Admission: 04/24/21 Date of Discharge: 04/25/21 Primary Care Physician: Dr. Rod Ochoa MD Reason For Visit: stoke s/s Diagnosis Discharge Diagnosis (1) CVA (cerebral vascular accident): Status: Acute Code(s): I63.9 - Cerebral infarction, unspecified Medications at Discharge Home Medications biotin 1 mg capsule 1 mg PO DAILY 06/29/18 cholecalciferol (vitamin D3) 2,000 unit PO DAILY 05/30/19 levothyroxine 100 mcg PO DAILY 05/30/19 do-oef-KA-Un-Wo-lwdzwht-lutein 1 ea PO DAILY 06/03/19 escitalopram oxalate 5 mg tablet 5 mg PO DAILY 01/23/20 glucosamine-chondroitin 250 mg-200 mg tablet 2 tab PO DAILY tab 02/09/21 metoprolol tartrate 25 mg tablet 25 mg PO BID tab 02/09/21 polysaccharide iron complex [Ferrex 150] 150 mg PO DAILY 04/24/21 apixaban 5 mg PO BID 30 Days #120 tab 04/25/21 aspirin 81 mg PO DAILY@0800 04/26/21 atorvastatin 40 mg PO QHS 04/26/21 Hospital Course Operations None Procedures 2-D Echocardiogram Summary of Care Provided Minutes Spent on Discharge: 45 Hospital Course: 86 year old female with PMHx of chronic atrial fibrillation, hypertension who presents with right upper extremity weakness. Patient was talking to a neighbor when she noticed that her right arm was weak. In the ED, her vitals were stable. Her NIHSS was 0. CT scan of the brain was unremarkable. CTA of head and neck was unremarkable except for 9 x7 mm nodule in the right thyroidectomy site, with possible necrosis. Patient was admitted to the PCU. She was unable to do an MRI of the brain becau se of her pacemaker. Repeat CT scan of brain showed no acute abnormality. Her HbA1c was 5.2, total cholesterol is 166, LDL is 88, HDL is 66 2D echo is showed EF 50-55%, no valvular abnormality. Teleneurology was consulted and recommended increasing Eliquis to 5mg PO BID. Patient was seen by PT/OT/ST and skilled for discharge to SNF. Physical Exam Narrative Physical exam: General: Well-nourished, well-developed, no acute distress Head: Normocephalic, atraumatic, no tenderness Eyes: PERRLA, EOMI ENT, no trauma, moist mucous membranes, no rhinorrhea Neck: Nontender, full range of motion, no spinal tenderness, deformities, step- off CVS: Regular rate and rhythm Respiratory no acute distress, clear to auscultation bilaterally, chest wall nontender, no wheezing Abdomen: Soft, nontender, nondistended, normal bowel sounds, no masses : Deferred Back: Nontender, no CVA tenderness, no midline spinal tenderness, deformities, step-offs Extremities: Nontender full range of motion, no trauma Skin: Normal color, no trauma, abrasions Neuro: Alert, oriented, cranial nerves II through XII grossly intact. No dysmetria. Deep tendon reflexes not hyperreflexia throughout. Strength in right upper extremity 4 out of 5. Strength in right lower extremity 5 out of 5. Strength in left upper and left lower extremity 5 out of 5. Psychiatry: Normal mood. Normal affect. Not depressed. Not anxious. Weight / BMI Weight Weight: 62.7 kg Body Mass Index (BMI) 20.9 ABG / Lab / Microbiology Data Result Diagrams: 04/25/21 06:05 04/25/21 06:05 Microbiology: Microbiology 04/25/21 16:12 Mucosa - Nasopharyngeal SARS-CoV-2 Antigen (Rapid) - Final Meaningful Use Info Meaningful Use Diagnoses (Choose all that apply): Ischemic CVA CVA Therapy Assessed for PT,OT and/or ST?: Yes Ischemic Stroke Antithrombotic order at d/c?: Yes Dx of Atrial fib/flutter?: Yes Anticoagulant at discharge?: Yes Statins at discharge?: Yes Primary Dx Acute Ischemic CVA?: Yes IV tPA ordered during stay?: No Reason IV t-PA not ordered: Treatment not Indicated Discharge Plan Admission Admit Date/Time: 04/24/21 21:19 Primary Reason for Your Visit: Acute stroke Attending Provider: Bekah Cotton Primary Care Provider: Rod Ochoa Chi Discharge Orders/Prescriptions Prescriptions: Continued biotin 1 mg capsule 1 mg PO DAILY RF: 0 escitalopram oxalate 5 mg tablet 5 mg PO DAILY RF: 0 glucosamine-chondroitin [Osteo Bi-Flex] 250-200 mg tablet 2 tab PO DAILY RF: 0 levothyroxine 100 MCG tablet 100 mcg PO DAILY RF: 0 cholecalciferol (vitamin D3) 2,000 UNIT capsule 2,000 unit PO DAILY RF: 0 metoprolol tartrate 25 mg tablet 25 mg PO BID RF: 0 gf-twy-PZ-Bs-Bg-hobotvw-lutein 1 EACH tablet 1 ea PO DAILY RF: 0 polysaccharide iron complex [Ferrex 150] 150 mg iron capsule 150 mg PO DAILY RF: 0 Changed apixaban 2.5 MG tablet 5 mg PO BID 30 Days Qty: 120 RF: 0 Discontinued turmeric root extract 500 mg capsule 500 mg PO DAILY RF: 0 No Action atorvastatin 40 mg tablet 40 mg PO QHS RF: 0 aspirin 81 mg tablet,chewable 81 mg PO DAILY@0800 RF: 0 Referrals / Follow Up: Maximino Starks MD [STAFF PHYSICIAN] - Within 1 Month Rod Ochoa Chi, MD [Primary Care Provider] - Within 2 Weeks Disposition Disposition (needs filled in before D/C Order can be placed): [facility]ustodial Facility Charges/Coding Visit Charges Inpatient E&M: 45408 Disch Hosp
--- NOTE | 2021-04-25 14:27 | CASEMGMT ---
Addendum entered by Krupa Christopher 04/25/21 15:21: SERJIO spoke to patient. She was appreciative of going to TCU. She had been there before and it was a positive experience. Patient in agreement to go to TCU at discharge. Krupa Burciaga Original Note: SERJIO Note Referral Note: Placement Referral Source: SARA BASSETT called Malinda at TCU. SERJIO updated her about the presentation and that patient med list was provided to Malinda by Elsi. Malinda said that patient was fine for admission. Elsi will speak to MD. Plan: TCU Krupa SULTANA
--- NOTE | 2021-04-25 18:00 | CASEMGMT ---
SARA CM in to complete DUBOSE form with patient. RN HELENA explained DUBOSE form to patient, patient voiced understanding. Patient signed DUBOSE form and filed in chart. Patient provided with copy of signed DUBOSE form. Patient had no further questions or concerns.
--- NOTE | 2021-04-25 19:18 | PCM.TXEXTCAR ---
Diet 04/24/21 23:13 Diet: Cardiac - Heart Healthy Food consistency:: Regular Liquid Consistency:: Regular/Thin Routine Orders/Code Status Routine Lab Work: CBC and BMP (within 3 days) Code Status: DNRCC-A (with intubation) Therapies Weight Bearing: Weight bearing as tolerated Physical Therapy: Eval and Treat Occupational Therapy: Eval and Treat Speech Therapy: Eval and Treat Problem/Diagnosis (1) CVA (cerebral vascular accident): Status: Acute Allergies/Procedures Done in Hospital Allergies latex Adverse Reaction (Verified 04/06/21 15:01) Itching sulfamethoxazole [From Bactrim] Adverse Reaction (Verified 04/06/21 15:01) Nausea trimethoprim [From Bactrim] Adverse Reaction (Verified 04/06/21 15:01) Nausea Procedures: 2-D Echocardiogram Type of Care/Length of Stay Estimated LOS: Convalescent Care Less Than 30 days Type of Care Needed: Skilled Rehab Potential: Good Prognosis: Good Additional Orders/Day of Discharge Day of Discharge: 04/25/21 Dietary and Speech Recommendations Dietitian Recommendations/Changes: Continue Cardiac diet. Follow Up Care Please follow up with your Primary Care Physician in: within 2 weeks of discharge Discharge Plan Admission Admit Date/Time: 04/24/21 21:19 Primary Reason for Your Visit: Acute stroke Attending Provider: Bekah Cotton Primary Care Provider: Rod Ochoa Chi Discharge Orders/Prescriptions Prescriptions: New atorvastatin 40 mg Tablet 40 mg PO QHS Qty: 0 RF: 0 aspirin 81 mg Tablet,Chewable 81 mg PO DAILY@0800 Qty: 0 RF: 0 Continued biotin 1 mg capsule 1 mg PO DAILY RF: 0 escitalopram oxalate 5 mg tablet 5 mg PO DAILY RF: 0 glucosamine-chondroitin [Osteo Bi-Flex] 250-200 mg tablet 2 tab PO DAILY RF: 0 levothyroxine 100 MCG tablet 100 mcg PO DAILY RF: 0 cholecalciferol (vitamin D3) 2,000 UNIT capsule 2,000 unit PO DAILY RF: 0 metoprolol tartrate 25 mg tablet 25 mg PO BID RF: 0 tk-yvp-BF-Dc-Ar-kkheigk-lutein 1 EACH tablet 1 ea PO DAILY RF: 0 apixaban 2.5 MG tablet 2.5 mg PO BID RF: 0 polysaccharide iron complex [Ferrex 150] 150 mg iron capsule 150 mg PO DAILY RF: 0 Discontinued turmeric root extract 500 mg capsule 500 mg PO DAILY RF: 0 Referrals / Follow Up: Rod Ochoa Chi, MD [Primary Care Provider] - Within 2 Weeks Maximino Starks MD [STAFF PHYSICIAN] - Within 1 Month
[2021-04-25] MEDS: Atorvastatin Calcium 40 MG Tablet PO (21:21)
[2021-04-25] MEDS: 0.9% Saline Lock 10 ML Syringe IV (21:24)
--- NOTE | 2021-04-25 22:14 | PN_ITS ---
Progress Note SOC neurologist called. [facility] neurologist in the patient's Eliquis is suboptimally low. Although patient's age is more than 81 her weight is more belkys n 60 kg. Her creatinine is normal at 1.5.
== END 2021-04-25 22:40 | disposition skilled nursing facility (03) ==
LOC: ED 21:24 → PCU 04-25 07:17
PROVIDERS: Admitting Provider Hospitalist; Emergency Provider Emergency Medicine; PCP Family Medicine Geriatric Medicine; Visit Provider Internal Medicine
DX: I63.9 Cerebral infarction, unspecified (principal); M19.90 Unspecified osteoarthritis, unspecified site; E89.0 Postprocedural hypothyroidism; I10 Essential (primary) hypertension; E78.5 Hyperlipidemia, unspecified; R29.700 NIHSS score 0; J45.20 Mild intermittent asthma, uncomplicated; I48.19 Other persistent atrial fibrillation; Z79.01 Long term (current) use of anticoagulants; Z79.899 Other long term (current) drug therapy; M06.9 Rheumatoid arthritis, unspecified; I87.2 Venous insufficiency (chronic) (peripheral); J32.0 Chronic maxillary sinusitis; R53.1 Weakness; K58.9 Irritable bowel syndrome, unspecified; Z87.19 Personal history of other diseases of the digestive system
CPT/HCPCS: 36415; 70450; 70496; 70498; 71045; 80048; 80061; 83036; 84484; 85025; 85610; 85730; 87426; 93005; 93306; 97162; 97166; 97802; 99218; 99285; Q9957; Q9967; A4216; C8929; G0378; J3490

== ENCOUNTER 2021-04-25 22:45 | Inpatient (IN) | payer MEDICARE, OTHER, SELFPAY ==
[2021-04-26 01:14] VITALS: BMI 20.9
[2021-04-26 01:22] VITALS: BP 151/69; PULSE 70; RESP 12; TEMP 36.4; O2SAT 97
[2021-04-26 01:36] VITALS: PULSE 70; RESP 12
--- NOTE | 2021-04-26 03:34 | NURSING ---
Pt arrived on floor at 10:45 pm. Oriented to room and made comfortable. Alert and oriented. Pleasant and cooperative with care. Pt denies pain.
[2021-04-26 06:11] LABS: Absolute Lymphocyte Count 1.18 X10^3/uL (0.83-4.51); Basophil# 0.06 X10^3/uL; Basophil% 1.2 % (0-1); Eosinophils% 5.9 % (0-5); Hemoglobin 12.1 g/dL (12.0-15.0); Lymphocyte # 1.18 X10^3/ul (0.83-4.51); Lymphocyte % 23.3 % (19-41); Mean Corp Hgb Conc 32.7 g/dL (32-36); Mean Corpuscular Volume 94.9 fL (81-99); Mean Platelet Vol. 10.8 fl (6.2-12.0); Monocyte# 0.51 X10^3/uL; Monocyte% 10.1 % (0-10); NRBC Flagged by Analyzer 0 % (0-5); Neutrophil % 59.3 % (47-70); Platelet Count 174 K/mm3 (150-450); RBC Distribution Width CV 11.9 % (11.6-14.6); RBC Distribution Width SD 41.3 fl (35.1-43.9); White Blood Count 5.1 K/mm3 (4.4-11.0)
[2021-04-26] MEDS: Escitalopram Oxalate 10 MG Tablet 5 MG PO (06:14)
[2021-04-26] MEDS: APIXABAN 5 MG TABLET PO ×2 (06:14→16:37)
[2021-04-26] MEDS: Levothyroxine 100 MCG Tablet PO (06:14)
[2021-04-26 06:15] VITALS: BP 166/79; PULSE 71
[2021-04-26] MEDS: Cholecalciferol (VIT D3) 25 MCG TABLET (1,000 UNITS) 50 MCG PO (06:15)
[2021-04-26] MEDS: Metoprolol Tartrate 25 MG Tablet PO ×2 (06:15→16:37)
[2021-04-26 06:22] LABS: Anion Gap 4 (5-15); BUN 20 mg/dL (7-18); BUN/Creat Ratio 24.3 RATIO (10-20); Calcium,Total 8.9 mg/dL (8.5-10.1); Chloride 106 mmol/L (98-107); Creatinine, Serum 0.82 mg/dL (0.55-1.02); EST Glomerular Filtration Rate 70 mL/min (>60); Est Glom Filt Rate - Afr Amer 85 mL/min (>60); Estimated Creatinine Clearance 49.65 ml/min; Glucose 85 mg/dL (74-106); Potassium 3.9 mmol/L (3.5-5.1); Sodium Level 140 mmol/L (136-145)
--- NOTE | 2021-04-26 07:18 | PCM.HP.STD ---
HPI - General General Date of Admission: 04/25/21 HPI Narrative 04/24/2021 MARISA SANTIAGO, is a 86 Female who presents to [facility] Emergency Department with neurologic signs, symptoms. Right arm heavy, not working normally for 1 to 1.5 hours. Stressful day, she was scammed, discussing with neighbor when she noticed arm symptoms. Troponin mildly elevated, but no chest pain. CT brain negative. CTA head/neck negative. Teleneurology recommended admission for transient ischemic attack. 04/24/2021 Admit to Hospital. PT/OT, Aspirin, Statin, Permissive Hypertension, MRI brain, Echo for stroke. 04/24/2021 Echo EF 50 to 55%. Right ventricular systolic pressure calculated 33mm HG. 04/25/2021 Right upper extremity weakness persists. Unable to have MRI brain due to pacemaker. PT/OT for debility. Repeat CT brain negative. 04/25/2021 Admit to TCU with debility, here for rehabilitation, strengthening, prior to discharge home alone. [facility], [facility] Medical History Acquired hypothyroidism Anemia Arthritis Asthma Cardiology follow-up encounter Complete heart block Delayed wound healing Edema leg Essential (primary) hypertension History of GI bleed History of IBS History of stress test Hyperlipidemia Malnutrition Microscopic colitis Mild intermittent asthma Non-smoker Nonrheumatic mitral valve insufficiency Persistent atrial fibrillation Personal history of colonic polyps Rheumatoid arthritis Sick sinus syndrome Stroke/cerebrovascular accident Thyroid storm Ulcer of left lower extremity with fat layer exposed Ulcer of right lower extremity with fat layer exposed Venous insufficiency 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 Wears glasses Home Medications biotin 1 mg capsule 1 mg PO DAILY 06/29/18 [History Last Taken 04/23/21] cholecalciferol (vitamin D3) 2,000 unit PO DAILY 05/30/19 [History Last Taken 04/25/21 08:32] levothyroxine 100 mcg PO DAILY 05/30/19 [History Last Taken 04/25/21 06:13] aa-aum-PT-Bn-Mf-skqboyo-lutein 1 ea PO DAILY 06/03/19 [History Last Taken 04/25/21 08:31] escitalopram oxalate 5 mg tablet 5 mg PO DAILY 01/23/20 [History Last Taken 04/25/21 08:32] glucosamine-chondroitin 250 mg-200 mg tablet 2 tab PO DAILY tab 02/09/21 [History Last Taken 04/23/21] metoprolol tartrate 25 mg tablet 25 mg PO BID tab 02/09/21 [History Last Taken 04/23/21] polysaccharide iron complex [Ferrex 150] 150 mg PO DAILY 04/24/21 [History Last Taken 04/25/21 08:31] apixaban 5 mg PO BID 30 Days #120 tab 04/25/21 [Rx Last Taken Unknown] aspirin 81 mg PO DAILY@0800 04/26/21 [History Last Taken 04/25/21 08:30] atorvastatin 40 mg PO QHS 04/26/21 [History Last Taken 04/25/21 21:21] Allergy/AdvReac Type Severity Reaction Status Date / Time latex AdvReac Itching Verified 04/06/21 15:01 sulfamethoxazole AdvReac Nausea Verified 04/06/21 15:01 [From Bactrim] trimethoprim [From Bactrim] AdvReac Nausea Verified 04/06/21 15:01 Family History Father CAD (coronary artery disease) Brother Cancer Leukemia Brother Epilepsy Surgical History H/O thyroidectomy History of knee replacement History of permanent cardiac pacemaker placement History of right hip replacement Social History (Updated 04/26/21 @ 07:[address] Rod Ochoa MD) household members: none Smoking Status: Never smoker alcohol intake: never substance use type: does not use caffeine: Yes Type: tea Number of servings: 1 what type of physical activity do you participate in: other details: healthpoint ROS Constitutional Constitutional: Denies chills, fever(s) or weight gain ENT HEENT: Denies headache(s), nasal congestion or nasal discharge Cardiovascular Cardiovascular: Denies chest pain or palpitations Respiratory/Chest Respiratory/Chest: Denies cough, excessive phlegm production or shortness of breath with exertion Gastrointestinal Gastrointestinal: Denies abdominal pain, nausea or vomiting Genitourinary Genitourinary: Denies dysuria Musculoskeletal Musculoskeletal: Denies joint pain or joint swelling Integumentary Integumentary: Denies rash or wounds Neurologic Neurologic: Reports focal weakness; Denies numbness or tingling Psychiatric Psychiatric: Reports auditory hallucinations; Denies anxiety, depression, homicidal ideation or suicidal ideation Vital Signs Vital Signs Vital Signs: 04/26/21 01:22 04/26/21 01:36 04/26/21 06:15 Temperature 97.6 F L Temperature Source Temporal Pulse Rate 70 70 71 Pulse Rhythm Regular Pulse Strength Normal (2+) Respiratory Rate 12 12 Respiratory Effort Normal Non-Labored Respiratory Depth Normal Respiratory Pattern Normal Blood Pressure 151/69 H 166/79 H Blood Pressure Mean 96 Blood Pressure Source Monitor Blood Pressure Position Semi-Fowlers Blood Pressure Location Right Arm Pulse Ox 97 Oxygen Delivery Method Room Air Room Air Weight Weight: 62.7 kg Body Mass Index (BMI) 20.9 Physical Exam Const alert and oriented x3 General Appearance: cooperative HEENT normocephalic Eyes PERRL and EOMs intact bilaterally Neck supple, no JVD and no carotid bruits Resp normal respiratory effort, normal air movement and clear to auscultation bilaterally Cardio regular rate and regular rhythm GI normal to inspection, nondistended, normoactive bowel sounds, non-tender and non-distended Extremity normal capillary refill General Extremity: Negative for edema Skin no rashes or lesions noted General Skin Exam: no breakdown Neuro Neuro Narrative: Right sided hemiparesis, upper and lower. Psych affect normal Appearance: appropriate Results Lab / Micro Data Result Diagrams: 04/26/21 05:53 04/26/21 05:53 Labs: Laboratory Results - last 24 hr 04/26/21 05:53: WBC 5.1, RBC 3.90 L, Hgb 12.1, Hct 37.0, MCV 94.9, MCH 31.0, MCHC 32.7, RDW Std Deviation 41.3, RDW Coeff of Radha 11.9, Plt Count 174, MPV 10.8, Immature Gran % (Auto) 0.200, Neut % (Auto) 59.3, Lymph % (Auto) 23.3, [place] % (Auto) 10.1 H, Eos % (Auto) 5.9 H, Baso % (Auto) 1.2 H, Absolute Neuts (auto) 3.0, Absolute Lymphs (auto) 1.18, Nucleated RBC % 0 04/26/21 05:53: Sodium 140, Potassium 3.9, Chloride 106, Carbon Dioxide 30.0, Anion Gap 4 L, BUN 20 H, Creatinine 0.82, Estim Creat Clear Calc 49.65, Est GFR (MDRD) Af Amer 85, Est GFR (MDRD) Non-Af 70, BUN/Creatinine Ratio 24.3 H, Glucose 85, Calcium 8.9 Assessment & Plan Assessment/Plan (1) Debility: (2) Stroke: (3) Right hemiparesis: (4) Atrial fibrillation: (5) Hypothyroidism: (6) Hypertension: (7) Hyperlipidemia: (8) Microscopic colitis: (9) Asthma: (10) Depression: (11) Iron deficiency anemia: PLAN: 86 year old female with below past medical history hospitalized for stroke, with right upper extremity hemiparesis, admitted to TCU with debility, here for rehabilitation, strengthening, prior to discharge home alone. Debility - PT/OT. Pain - Tylenol 1000mg Q6H prn pain (1-10). Bowel - Senna/colace 1 tablet twice daily prn. Adult immunization - Administer prevnar 13, pneumovax 23, fluzone, covid19 vaccine as appropriate. DVT prophylaxis - Not necessary, already on Eliquis. Atrial Fibrillation - Metoprolol 25mg twice daily, Eliquis 5mg twice daily. Stroke with right hemiparesis - Aspirin 81mg daily. Hyperlipidemia - High intensity Atorvastatin 40mg QHS. Vitamin D deficiency - D3 50mcg daily. 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 Iron deficiency anemia - Ferrex 150mg daily. Hypothyroidism - Levothyroxine 100mcg daily. Nutrition - MVI daily.
[2021-04-26] MEDS: Iron Polysaccharide Complex 150 MG CAPSULE PO (08:59)
[2021-04-26] MEDS: Multivitamin (Healthy Eyes) Capsule 1 CAP PO (08:59)
[2021-04-26] MEDS: Aspirin 81 MG TAB.CHEW PO (08:59)
[2021-04-26 16:00] VITALS: BP 112/64; PULSE 77; RESP 17; TEMP 36.6; O2SAT 95
[2021-04-26 16:37] VITALS: PULSE 77
[2021-04-26] MEDS: 0.9% Saline Lock 10 ML Syringe IV (16:37)
[2021-04-26] MEDS: Atorvastatin Calcium 40 MG Tablet PO (22:49)
[2021-04-27 06:11] VITALS: BP 127/76; PULSE 70; RESP 16; TEMP 36.3; O2SAT 95
[2021-04-27 06:12] VITALS: BP 127/76; PULSE 70
[2021-04-27] MEDS: APIXABAN 5 MG TABLET PO ×2 (06:12→18:21)
[2021-04-27] MEDS: Levothyroxine 100 MCG Tablet PO (06:12)
[2021-04-27] MEDS: Metoprolol Tartrate 25 MG Tablet PO ×2 (06:12→18:22)
[2021-04-27] MEDS: Cholecalciferol (VIT D3) 25 MCG TABLET (1,000 UNITS) 50 MCG PO (06:12)
[2021-04-27] MEDS: Escitalopram Oxalate 10 MG Tablet 5 MG PO (06:13)
[2021-04-27] MEDS: Multivitamin (Healthy Eyes) Capsule 1 CAP PO (09:17)
[2021-04-27] MEDS: Aspirin 81 MG TAB.CHEW PO (09:17)
[2021-04-27] MEDS: Iron Polysaccharide Complex 150 MG CAPSULE PO (09:17)
[2021-04-27] MEDS: Tuberculin,Purif.prot.deriv. 50 TU/ML Vial 0.1 ML ID (13:29)
[2021-04-27 15:17] VITALS: BP 97/57; PULSE 56; RESP 16; TEMP 35.8; O2SAT 94
--- NOTE | 2021-04-27 15:46 | PCM.PN.RX ---
Progress Note - Pharmacy Subjective: TCU ADMISSION Objective: Allergies latex Adverse Reaction (Verified 04/06/21 15:01) Itching sulfamethoxazole [From Bactrim] Adverse Reaction (Verified 04/06/21 15:01) Nausea trimethoprim [From Bactrim] Adverse Reaction (Verified 04/06/21 15:01) Nausea Current Medications Generic Name Dose Route Start Last Admin Trade Name Freq PRN Reason Stop Dose Admin Acetaminophen 1,000 mg 04/26/21 07:30 Acetaminophen 500 Mg Tablet PO Q6H PRN PRN Pain Score 1-10 Apixaban 5 mg 04/26/21 06:00 04/27/21 06:12 Apixaban 5 Mg Tablet PO 5 mg BID SONIA Administration Aspirin 81 mg 04/26/21 08:00 04/27/21 09:17 Aspirin 81 Mg Tab.Chew PO 81 mg DAILY@0800 SONIA Administration Atorvastatin Calcium 40 mg 04/26/21 22:00 04/26/21 22:49 Atorvastatin Calcium 40 Mg Tablet PO 40 mg QHS SONIA Administration Cholecalciferol 50 mcg 04/26/21 06:00 04/27/21 06:12 Cholecalciferol (Vit D3) 25 Mcg Tablet (1,000 Units) PO 50 mcg DAILY SONIA Administration Escitalopram Oxalate 5 mg 04/26/21 06:00 04/27/21 06:13 Escitalopram Oxalate 10 Mg Tablet PO 5 mg DAILY SONIA Administration Levothyroxine Sodium 100 mcg 04/26/21 06:00 04/27/21 06:12 Levothyroxine 100 Mcg Tablet PO 100 mcg DAILY SONIA Administration Metoprolol Tartrate 25 mg 04/26/21 06:00 04/27/21 06:12 Metoprolol Tartrate 25 Mg Tablet PO 25 mg BID SONIA Administration Multivitamins/Minerals 1 capsule 04/26/21 08:00 04/27/21 09:17 Multivitamin (Healthy Eyes) Capsule PO 1 capsule DAILYCM SONIA Administration Polysaccharide Iron Complex 150 mg 04/26/21 08:00 04/27/21 09:17 Iron Polysaccharide Complex 150 Mg Capsule PO 150 mg DAILYCM SONIA Administration Senna/Docusate Sodium 1 tablet 04/26/21 07:30 Senna/Docusate Sodium 1 Tablet PO BID PRN Constipation Sodium Chloride 10 - 40 ml 04/26/21 01:18 04/26/21 16:37 0.9% Saline Lock 10 Ml Syringe IV 10 ml UD PRN Administration SALINE FLUSH Tuberculin PPD 0.1 ml 05/04/21 10:00 Tuberculin,Purif.Prot.Deriv. 50 Tu/Ml Vial ID 05/04/21 10:01 X1 ONE Problem List (Last Reviewed 04/26/21 @ 07:[address] Rod Ochoa MD) Iron deficiency anemia (Acute) Depression (Acute) Asthma (Acute) Microscopic colitis (Acute) Hyperlipidemia (Acute) Hypertension (Chronic) Hypothyroidism (Acute) Atrial fibrillation (Acute) Right hemiparesis (Acute) Stroke (Acute) Debility (Acute) Vital Signs Temp Pulse Resp BP Pulse Ox 96.5 F L 56 L 16 97/57 L 94 04/27/21 15:17 04/27/21 15:17 04/27/21 15:17 04/27/21 15:17 04/27/21 15:17 Oxygen Delivery Method Room Air Weight: 61.552 kg Body Mass Index (BMI) 20.9 Sodium 140 mmol/L (136-145) 04/26/21 05:53 Potassium 3.9 mmol/L (3.5-5.1) 04/26/21 05:53 Chloride 106 mmol/L (98-107) 04/26/21 05:53 Carbon Dioxide 30.0 mmol/L (21.0-32.0) 04/26/21 05:53 Anion Gap 4 (5-15) L 04/26/21 05:53 BUN 20 mg/dL (7-18) H 04/26/21 05:53 Creatinine 0.82 mg/dL (0.55-1.02) 04/26/21 05:53 Est GFR (MDRD) Af Amer 85 mL/min (>60) 04/26/21 05:53 Est GFR (MDRD) Non-Af 70 mL/min (>60) 04/26/21 05:53 BUN/Creatinine Ratio 24.3 RATIO (10-20) H 04/26/21 05:53 Glucose 85 mg/dL (74-106) 04/26/21 05:53 Assessment/Plan: 1. Pain: Tylenol 1000mg PO Q6h PRN Pain 1-10. Please continue to monitor for increased/decreased S/S pain, PRN medication usage. 2. Atrial Fibrillation/HLD/ History of stroke: Eliquis 5mg PO BID, Aspirin 81mg PO Daily, Lipitor 40mg PO QHS, Lopressor 25mg PO BID. Please continue to monitor renal function, S/S bleeding/bruising, BP, pulse, and lipid panel annually or sooner if clinically indicated. 3. Hypothyroid: Synthroid 100mcg PO Daily. Please continue to monitor S/S hypothyroidism, Thyroid labs as clinically indicated. 4. Iron Deficieny anemia: Ferrex 150mg PO Daily. Please continue to monitor iron studies as clinically indicated. 5. General Wellness: MVI 1 tab PO Daily, Vitamin D3 50mcg PO Daily. Please continue to monitor labs as clinically indicated. Psychotropic Medications: 6. Lexapro 5mg PO Daily. Please see note in H/P regarding GDR, thank you. Unnecessary Medications: None Bowel Regimen: Senna/Docusate 1 tab PO BID PRN. Please continue to monitor for increased/decreased constipation and/or diarrhea. Date of Note:: 04/27/21
--- NOTE | 2021-04-27 16:58 | CHAPLAIN ---
Type of Pastoral Visit _x__ Initial Visit ___ Follow-up Visit ___ On-call Visit ___ General Patient Visit ___ Spiritual Assessment ___ Family Conference ___ Bereavement ___ Rapid Response ___ Code Blue ___ Other (describe below) Pastoral Care Referral From _x__ Patient ___ Family ___ Nurse ___ Physician ___ Crts ___ [place] Manager ___ Other (describe below) Sacrament/Intervention _x__ Active listening ___ Anointing ___ Pentecostalism ___ Bereavement ___ Communion ___ Mary exploration ___ _x__ Life review _x__ Prayer ___ Reconciliation ___ Sacrament of Sick _x__ Supportive presence ___ Wedding ___ Other (describe below) Pastoral Comments patient gives good life and family review; pt is remembered from a previous admission a couple of years ago; pt has family support and good neighbors; pt has a temple connection
[2021-04-27 18:22] VITALS: PULSE 75
[2021-04-27 21:00] VITALS: PULSE 72; RESP 16; O2SAT 97
[2021-04-27] MEDS: Atorvastatin Calcium 40 MG Tablet PO (21:05)
[2021-04-28 06:18] VITALS: BP 137/72; PULSE 69
[2021-04-28] MEDS: 0.9% Saline Lock 10 ML Syringe IV ×2 (06:19→11:03)
[2021-04-28 06:21] VITALS: PULSE 69
[2021-04-28] MEDS: APIXABAN 5 MG TABLET PO ×2 (06:21→17:21)
[2021-04-28] MEDS: Escitalopram Oxalate 10 MG Tablet 5 MG PO (06:21)
[2021-04-28] MEDS: Metoprolol Tartrate 25 MG Tablet PO ×2 (06:21→17:21)
[2021-04-28] MEDS: Levothyroxine 100 MCG Tablet PO (06:22)
[2021-04-28] MEDS: Cholecalciferol (VIT D3) 25 MCG TABLET (1,000 UNITS) 50 MCG PO (06:22)
[2021-04-28] MEDS: Iron Polysaccharide Complex 150 MG CAPSULE PO (08:54)
[2021-04-28] MEDS: Aspirin 81 MG TAB.CHEW PO (08:54)
[2021-04-28] MEDS: Multivitamin (Healthy Eyes) Capsule 1 CAP PO (08:54)
[2021-04-28 10:51] VITALS: PULSE 70; RESP 16; O2SAT 97
[2021-04-28 13:39] VITALS: BP 150/54; PULSE 69; RESP 16; TEMP 36.9; O2SAT 96
--- NOTE | 2021-04-28 15:44 | CASEMGMT ---
Social Work Met with pt for initial assessment. SERJIO discussed code status with pt and assisted pt in completing MOLST form. Pt wishes are DNR CCA with intubation. MOLST form communicated to nursing and physician and placed in pt chart. SERJIO explained Medicare Benefit and encouraged pt to contact secondary insurance too ensure copy coverage. Pt lives at home alone and was independent prior to hospitalization. Pt plans to return to her home. Pt has 4 sons who all live out of the area. SERJIO will continue to follow. CAROLINA Doyle
--- NOTE | 2021-04-28 16:40 | PCA ---
Patient's son called in [facility] about his mother receiving telemarketing phone calls via room phone. i explained to him that we are not able to screen calls to patients rooms and that access to the number is public record so, it is very hard to control telemarketing from not calling us, they even call cell phone now a days. pt's son said yes but that is the reason why my mother is there, she had experience weakness to her extremities due to stress over a scammer, how did they find her here? i explained to him that they have not tracked her here she is perfectly safe. her son asked me to explain it to pt. went back an i explained it to pt asked her what she wanted to do? did she want to unplug her phone and her family/friends call the desk when they would like to speak with you an staff will plug your phone in for you to talk to them. pt said she didn't want to be a bother i explained that she was no bother, she said that she was going to talk to her friends and let me know we will see how it goes tomorrow.
[2021-04-28 17:21] VITALS: PULSE 69
[2021-04-28] MEDS: Atorvastatin Calcium 40 MG Tablet PO (21:12)
[2021-04-29 05:10] VITALS: BP 129/70; PULSE 70
[2021-04-29] MEDS: Cholecalciferol (VIT D3) 25 MCG TABLET (1,000 UNITS) 50 MCG PO (05:10)
[2021-04-29] MEDS: APIXABAN 5 MG TABLET PO ×2 (05:10→17:21)
[2021-04-29] MEDS: Escitalopram Oxalate 10 MG Tablet 5 MG PO (05:10)
[2021-04-29] MEDS: Metoprolol Tartrate 25 MG Tablet PO ×2 (05:10→17:21)
[2021-04-29] MEDS: Levothyroxine 100 MCG Tablet PO (05:10)
[2021-04-29] MEDS: Iron Polysaccharide Complex 150 MG CAPSULE PO (08:46)
[2021-04-29] MEDS: Aspirin 81 MG TAB.CHEW PO (08:46)
[2021-04-29] MEDS: Multivitamin (Healthy Eyes) Capsule 1 CAP PO (08:46)
--- NOTE | 2021-04-29 14:45 | CASEMGMT ---
Social Work Plan of care meeting held with pt in attendance and pt son on conference call. PT is receiving PT/OT, participating well and making progress. Pt lives at home alone and plans to return home at time of discharge. Pt does have four sons however, none live local. No discharge date set at this time. Pt will continue with treatment plan with plans to return home independently. CAROLINA Doyle
[2021-04-29 16:00] VITALS: BP 122/70; PULSE 71; RESP 16; TEMP 36.9; O2SAT 97
[2021-04-29 17:21] VITALS: PULSE 71
[2021-04-29 21:45] VITALS: PULSE 69; RESP 16; O2SAT 96
[2021-04-29] MEDS: Acetaminophen 500 MG Tablet 1000 MG PO (21:52)
[2021-04-29] MEDS: Atorvastatin Calcium 40 MG Tablet PO (21:53)
[2021-04-30 06:22] VITALS: BP 125/58; PULSE 70
[2021-04-30 06:23] VITALS: PULSE 70
[2021-04-30] MEDS: Escitalopram Oxalate 10 MG Tablet 5 MG PO (06:23)
[2021-04-30] MEDS: APIXABAN 5 MG TABLET PO ×2 (06:23→17:13)
[2021-04-30] MEDS: Metoprolol Tartrate 25 MG Tablet PO ×2 (06:23→17:13)
[2021-04-30] MEDS: Levothyroxine 100 MCG Tablet PO (06:23)
[2021-04-30] MEDS: Cholecalciferol (VIT D3) 25 MCG TABLET (1,000 UNITS) 50 MCG PO (06:24)
[2021-04-30] MEDS: Iron Polysaccharide Complex 150 MG CAPSULE PO (08:55)
[2021-04-30] MEDS: Aspirin 81 MG TAB.CHEW PO (08:55)
[2021-04-30] MEDS: Multivitamin (Healthy Eyes) Capsule 1 CAP PO (08:55)
[2021-04-30 17:13] VITALS: BP 111/65; PULSE 72
[2021-04-30] MEDS: Acetaminophen 500 MG Tablet 1000 MG PO (21:28)
[2021-04-30] MEDS: Atorvastatin Calcium 40 MG Tablet PO (21:28)
[2021-05-01 05:50] VITALS: BP 120/66; PULSE 70
[2021-05-01] MEDS: Escitalopram Oxalate 10 MG Tablet 5 MG PO (05:50)
[2021-05-01] MEDS: Metoprolol Tartrate 25 MG Tablet PO ×2 (05:50→17:34)
[2021-05-01] MEDS: Cholecalciferol (VIT D3) 25 MCG TABLET (1,000 UNITS) 50 MCG PO (05:50)
[2021-05-01] MEDS: Levothyroxine 100 MCG Tablet PO (05:50)
[2021-05-01] MEDS: APIXABAN 5 MG TABLET PO ×2 (05:51→17:34)
[2021-05-01] MEDS: Multivitamin (Healthy Eyes) Capsule 1 CAP PO (08:13)
[2021-05-01] MEDS: Iron Polysaccharide Complex 150 MG CAPSULE PO (08:13)
[2021-05-01] MEDS: Aspirin 81 MG TAB.CHEW PO (08:13)
[2021-05-01 12:16] VITALS: PULSE 70; RESP 16; O2SAT 97
--- NOTE | 2021-05-01 12:26 | CASEMGMT ---
BIMS and PHQ9 interviews completed on this date for MDS assessment. CAROLINA Doyle
--- NOTE | 2021-05-01 12:30 | MDS.RN ---
Pain interview for ROEL 05/02/21 completed.
[2021-05-01 15:00] VITALS: BP 130/56; PULSE 69; RESP 14; TEMP 36.2; O2SAT 95
[2021-05-01 17:34] VITALS: PULSE 69
[2021-05-01] MEDS: Acetaminophen 500 MG Tablet 1000 MG PO (22:22)
[2021-05-01] MEDS: Atorvastatin Calcium 40 MG Tablet PO (22:23)
[2021-05-02 06:02] VITALS: BP 124/64; PULSE 69; RESP 16; TEMP 37.4; O2SAT 96
[2021-05-02 06:04] VITALS: BP 124/64; PULSE 69
[2021-05-02] MEDS: Escitalopram Oxalate 10 MG Tablet 5 MG PO (06:04)
[2021-05-02] MEDS: Metoprolol Tartrate 25 MG Tablet PO ×2 (06:04→16:52)
[2021-05-02] MEDS: Cholecalciferol (VIT D3) 25 MCG TABLET (1,000 UNITS) 50 MCG PO (06:04)
[2021-05-02] MEDS: APIXABAN 5 MG TABLET PO ×2 (06:05→16:52)
[2021-05-02] MEDS: Levothyroxine 100 MCG Tablet PO (06:05)
[2021-05-02] MEDS: Iron Polysaccharide Complex 150 MG CAPSULE PO (08:46)
[2021-05-02] MEDS: Aspirin 81 MG TAB.CHEW PO (08:46)
[2021-05-02] MEDS: Multivitamin (Healthy Eyes) Capsule 1 CAP PO (08:47)
[2021-05-02 09:00] VITALS: O2SAT 95
[2021-05-02 14:20] VITALS: BP 117/57; PULSE 70; RESP 16; TEMP 35.9; O2SAT 95
[2021-05-02 16:52] VITALS: BP 158/65; PULSE 69
[2021-05-02] MEDS: Atorvastatin Calcium 40 MG Tablet PO (20:41)
[2021-05-02] MEDS: Acetaminophen 500 MG Tablet 1000 MG PO (22:08)
[2021-05-03 05:00] VITALS: BP 123/69; PULSE 70
[2021-05-03] MEDS: Cholecalciferol (VIT D3) 25 MCG TABLET (1,000 UNITS) 50 MCG PO (05:00)
[2021-05-03 05:01] VITALS: PULSE 70
[2021-05-03] MEDS: Metoprolol Tartrate 25 MG Tablet PO ×2 (05:01→16:58)
[2021-05-03] MEDS: APIXABAN 5 MG TABLET PO ×2 (05:01→16:58)
[2021-05-03] MEDS: Levothyroxine 100 MCG Tablet PO (05:01)
[2021-05-03] MEDS: Escitalopram Oxalate 10 MG Tablet 5 MG PO (05:01)
[2021-05-03 06:35] LABS: Absolute Lymphocyte Count 1.21 X10^3/uL (0.83-4.51); Basophil# 0.08 X10^3/uL; Basophil% 1.9 % (0-1); Eosinophil# 0.35 X10^3/uL; Eosinophils% 8.4 % (0-5); Hematocrit 34.7 % (37-47); Hemoglobin 11.2 g/dL (12.0-15.0); Lymphocyte # 1.21 X10^3/ul (0.83-4.51); Lymphocyte % 29.2 % (19-41); Mean Corp Hgb Conc 32.3 g/dL (32-36); Mean Corpuscular Hgb 30.9 pg (27.0-32.0); Mean Corpuscular Volume 95.9 fL (81-99); Mean Platelet Vol. 10.5 fl (6.2-12.0); Monocyte# 0.46 X10^3/uL; Monocyte% 11.1 % (0-10); NRBC Flagged by Analyzer 0 % (0-5); Neutrophil # 2.04 X10^3/uL (2.7-7.7); Neutrophil % 49.2 % (47-70); Platelet Count 166 K/mm3 (150-450); RBC Distribution Width CV 11.9 % (11.6-14.6); RBC Distribution Width SD 41.4 fl (35.1-43.9); Red Blood Count 3.62 M/mm3 (4.2-5.4); White Blood Count 4.2 K/mm3 (4.4-11.0)
[2021-05-03] MEDS: Iron Polysaccharide Complex 150 MG CAPSULE PO (08:33)
[2021-05-03] MEDS: Aspirin 81 MG TAB.CHEW PO (08:33)
[2021-05-03] MEDS: Multivitamin (Healthy Eyes) Capsule 1 CAP PO (08:33)
[2021-05-03 15:16] VITALS: BP 131/61; PULSE 70; RESP 16; TEMP 36.6; O2SAT 97
[2021-05-03 16:58] VITALS: PULSE 78
[2021-05-03] MEDS: Atorvastatin Calcium 40 MG Tablet PO (20:52)
[2021-05-04] MEDS: APIXABAN 5 MG TABLET PO ×2 (06:04→17:25)
[2021-05-04] MEDS: Levothyroxine 100 MCG Tablet PO (06:04)
[2021-05-04] MEDS: Escitalopram Oxalate 10 MG Tablet 5 MG PO (06:04)
[2021-05-04] MEDS: Cholecalciferol (VIT D3) 25 MCG TABLET (1,000 UNITS) 50 MCG PO (06:04)
[2021-05-04 06:06] VITALS: BP 127/66; PULSE 69
[2021-05-04] MEDS: Metoprolol Tartrate 25 MG Tablet PO ×2 (06:06→17:25)
[2021-05-04] MEDS: Multivitamin (Healthy Eyes) Capsule 1 CAP PO (08:12)
[2021-05-04] MEDS: Iron Polysaccharide Complex 150 MG CAPSULE PO (08:12)
[2021-05-04] MEDS: Aspirin 81 MG TAB.CHEW PO (08:12)
[2021-05-04] MEDS: Tuberculin,Purif.prot.deriv. 50 TU/ML Vial 0.1 ML ID (12:56)
[2021-05-04 16:00] VITALS: BP 132/66; PULSE 63; RESP 15; TEMP 36.3; O2SAT 96
[2021-05-04 17:25] VITALS: BP 124/61; PULSE 70
[2021-05-04] MEDS: MELATONIN 10 MG TABLET PO (20:33)
[2021-05-04] MEDS: Atorvastatin Calcium 40 MG Tablet PO (20:34)
[2021-05-04 21:00] VITALS: PULSE 75; O2SAT 94
[2021-05-05 05:25] VITALS: BP 130/73; PULSE 69
[2021-05-05] MEDS: Escitalopram Oxalate 10 MG Tablet 5 MG PO (05:25)
[2021-05-05] MEDS: Levothyroxine 100 MCG Tablet PO (05:25)
[2021-05-05] MEDS: Metoprolol Tartrate 25 MG Tablet PO ×2 (05:25→17:41)
[2021-05-05] MEDS: Cholecalciferol (VIT D3) 25 MCG TABLET (1,000 UNITS) 50 MCG PO (05:25)
[2021-05-05] MEDS: APIXABAN 5 MG TABLET PO ×2 (05:26→17:41)
[2021-05-05] MEDS: Iron Polysaccharide Complex 150 MG CAPSULE PO (08:12)
[2021-05-05] MEDS: Aspirin 81 MG TAB.CHEW PO (08:12)
[2021-05-05] MEDS: Multivitamin (Healthy Eyes) Capsule 1 CAP PO (08:12)
--- NOTE | 2021-05-05 15:27 | NURSING ---
Resident and son, Phill, notified of COVID status on the unit.
[2021-05-05 16:37] VITALS: BP 116/57; PULSE 69; RESP 15; TEMP 36; O2SAT 91
[2021-05-05 17:41] VITALS: PULSE 69
[2021-05-05 21:50] VITALS: PULSE 71; RESP 16; O2SAT 95
[2021-05-05] MEDS: Atorvastatin Calcium 40 MG Tablet PO (21:55)
[2021-05-05] MEDS: MELATONIN 10 MG TABLET PO (21:58)
[2021-05-06] MEDS: Escitalopram Oxalate 10 MG Tablet 5 MG PO (05:25)
[2021-05-06] MEDS: APIXABAN 5 MG TABLET PO ×2 (05:25→17:24)
[2021-05-06 05:26] VITALS: BP 120/63; PULSE 69
[2021-05-06] MEDS: Metoprolol Tartrate 25 MG Tablet PO ×2 (05:26→17:25)
[2021-05-06] MEDS: Levothyroxine 100 MCG Tablet PO (05:26)
[2021-05-06] MEDS: Cholecalciferol (VIT D3) 25 MCG TABLET (1,000 UNITS) 50 MCG PO (05:26)
[2021-05-06] MEDS: Multivitamin (Healthy Eyes) Capsule 1 CAP PO (08:05)
[2021-05-06] MEDS: Iron Polysaccharide Complex 150 MG CAPSULE PO (08:05)
[2021-05-06] MEDS: Aspirin 81 MG TAB.CHEW PO (08:05)
[2021-05-06 17:25] VITALS: PULSE 70
[2021-05-06 17:35] VITALS: BP 110/66; PULSE 70; RESP 17; TEMP 36.2; O2SAT 97
[2021-05-06 20:45] VITALS: PULSE 70; RESP 16; O2SAT 94
[2021-05-06] MEDS: Acetaminophen 500 MG Tablet 1000 MG PO (21:51)
[2021-05-06] MEDS: MELATONIN 10 MG TABLET PO (21:52)
[2021-05-06] MEDS: Atorvastatin Calcium 40 MG Tablet PO (21:52)
[2021-05-07] MEDS: Cholecalciferol (VIT D3) 25 MCG TABLET (1,000 UNITS) 50 MCG PO (05:42)
[2021-05-07 05:43] VITALS: BP 117/60; PULSE 69
[2021-05-07] MEDS: Escitalopram Oxalate 10 MG Tablet 5 MG PO (05:43)
[2021-05-07] MEDS: Levothyroxine 100 MCG Tablet PO (05:43)
[2021-05-07] MEDS: Metoprolol Tartrate 25 MG Tablet PO ×2 (05:43→16:29)
[2021-05-07] MEDS: APIXABAN 5 MG TABLET PO ×2 (05:44→16:29)
--- NOTE | 2021-05-07 06:45 | MDS.RN ---
Information for the mds was obtained from review of the clinical record, interview of resident, staff, and direct observation of resident's care.
[2021-05-07] MEDS: Aspirin 81 MG TAB.CHEW PO (08:40)
[2021-05-07] MEDS: Multivitamin (Healthy Eyes) Capsule 1 CAP PO (08:40)
[2021-05-07] MEDS: Iron Polysaccharide Complex 150 MG CAPSULE PO (08:40)
[2021-05-07 15:34] VITALS: PULSE 70; RESP 16; O2SAT 94
[2021-05-07 16:00] VITALS: BP 121/63; PULSE 70; RESP 14; TEMP 36.4; O2SAT 94
[2021-05-07 16:29] VITALS: BP 121/62; PULSE 70
[2021-05-07] MEDS: Atorvastatin Calcium 40 MG Tablet PO (21:49)
[2021-05-07] MEDS: MELATONIN 10 MG TABLET PO (21:49)
[2021-05-08] MEDS: Escitalopram Oxalate 10 MG Tablet 5 MG PO (05:29)
[2021-05-08] MEDS: APIXABAN 5 MG TABLET PO ×2 (05:29→16:56)
[2021-05-08 05:30] VITALS: BP 128/70; PULSE 70
[2021-05-08] MEDS: Metoprolol Tartrate 25 MG Tablet PO (05:30)
[2021-05-08] MEDS: Levothyroxine 100 MCG Tablet PO (05:30)
[2021-05-08] MEDS: Cholecalciferol (VIT D3) 25 MCG TABLET (1,000 UNITS) 50 MCG PO (05:30)
[2021-05-08] MEDS: Iron Polysaccharide Complex 150 MG CAPSULE PO (09:03)
[2021-05-08] MEDS: Multivitamin (Healthy Eyes) Capsule 1 CAP PO (09:04)
[2021-05-08] MEDS: Aspirin 81 MG TAB.CHEW PO (09:04)
[2021-05-08 15:12] VITALS: BP 94/51; PULSE 70; RESP 15; TEMP 36.6; O2SAT 96
[2021-05-08 16:54] VITALS: BP 101/52; PULSE 70
[2021-05-08] MEDS: MELATONIN 10 MG TABLET PO (21:01)
[2021-05-08] MEDS: Atorvastatin Calcium 40 MG Tablet PO (21:02)
[2021-05-08 23:31] VITALS: PULSE 73; RESP 18; O2SAT 99
[2021-05-09] MEDS: APIXABAN 5 MG TABLET PO ×2 (05:02→17:11)
[2021-05-09] MEDS: Escitalopram Oxalate 10 MG Tablet 5 MG PO (05:02)
[2021-05-09 05:03] VITALS: BP 115/61; PULSE 69
[2021-05-09] MEDS: Cholecalciferol (VIT D3) 25 MCG TABLET (1,000 UNITS) 50 MCG PO (05:03)
[2021-05-09] MEDS: Metoprolol Tartrate 25 MG Tablet PO ×2 (05:03→17:11)
[2021-05-09] MEDS: Levothyroxine 100 MCG Tablet PO (05:04)
[2021-05-09] MEDS: Aspirin 81 MG TAB.CHEW PO (09:20)
[2021-05-09] MEDS: Multivitamin (Healthy Eyes) Capsule 1 CAP PO (09:20)
[2021-05-09] MEDS: Iron Polysaccharide Complex 150 MG CAPSULE PO (09:20)
[2021-05-09 10:00] VITALS: PULSE 71; RESP 16; O2SAT 95
[2021-05-09 16:00] VITALS: BP 98/46; PULSE 70; RESP 14; TEMP 36.5; O2SAT 96
[2021-05-09 17:04] VITALS: BP 114/65; PULSE 65
[2021-05-09 17:11] VITALS: PULSE 65
[2021-05-09] MEDS: MELATONIN 10 MG TABLET PO (20:59)
[2021-05-09] MEDS: Atorvastatin Calcium 40 MG Tablet PO (20:59)
[2021-05-10] MEDS: Cholecalciferol (VIT D3) 25 MCG TABLET (1,000 UNITS) 50 MCG PO (06:01)
[2021-05-10] MEDS: APIXABAN 5 MG TABLET PO ×2 (06:01→17:17)
[2021-05-10 06:02] VITALS: BP 120/69; PULSE 72
[2021-05-10] MEDS: Metoprolol Tartrate 25 MG Tablet PO ×2 (06:02→17:16)
[2021-05-10] MEDS: Escitalopram Oxalate 10 MG Tablet 5 MG PO (06:03)
[2021-05-10] MEDS: Levothyroxine 100 MCG Tablet PO (06:03)
[2021-05-10 06:07] VITALS: BP 120/69; PULSE 72; RESP 16; TEMP 36.7
[2021-05-10 08:38] LABS: Absolute Lymphocyte Count 1.23 X10^3/uL (0.83-4.51); Absolute Neutrophil Count 3.2 X10^3/uL (2.0-7.7); Basophil# 0.07 X10^3/uL; Basophil% 1.3 % (0-1); Eosinophils% 5.7 % (0-5); Hemoglobin 11.7 g/dL (12.0-15.0); Lymphocyte # 1.23 X10^3/ul (0.83-4.51); Lymphocyte % 23.2 % (19-41); Mean Corp Hgb Conc 32.5 g/dL (32-36); Mean Corpuscular Hgb 31.3 pg (27.0-32.0); Mean Corpuscular Volume 96.3 fL (81-99); Mean Platelet Vol. 11.3 fl (6.2-12.0); Monocyte# 0.52 X10^3/uL; Monocyte% 9.8 % (0-10); NRBC Flagged by Analyzer 0 % (0-5); Neutrophil # 3.16 X10^3/uL (2.7-7.7); Neutrophil % 59.6 % (47-70); Platelet Count 201 K/mm3 (150-450); RBC Distribution Width CV 12.2 % (11.6-14.6); Red Blood Count 3.74 M/mm3 (4.2-5.4); White Blood Count 5.3 K/mm3 (4.4-11.0)
[2021-05-10] MEDS: Aspirin 81 MG TAB.CHEW PO (08:46)
[2021-05-10] MEDS: Iron Polysaccharide Complex 150 MG CAPSULE PO (08:46)
[2021-05-10] MEDS: Multivitamin (Healthy Eyes) Capsule 1 CAP PO (08:46)
[2021-05-10 08:52] LABS: Anion Gap 5 (5-15); BUN 29 mg/dL (7-18); BUN/Creat Ratio 36.2 RATIO (10-20); Calcium,Total 8.9 mg/dL (8.5-10.1); Chloride 106 mmol/L (98-107); EST Glomerular Filtration Rate 72 mL/min (>60); Est Glom Filt Rate - Afr Amer 88 mL/min (>60); Estimated Creatinine Clearance 51.22 ml/min; Glucose 77 mg/dL (74-106); Potassium 4.1 mmol/L (3.5-5.1); Sodium Level 140 mmol/L (136-145)
[2021-05-10 16:01] VITALS: BP 116/55; PULSE 70; RESP 16; TEMP 36.4; O2SAT 96
[2021-05-10 17:16] VITALS: BP 122/58; PULSE 72
[2021-05-10] MEDS: MELATONIN 10 MG TABLET PO (22:46)
[2021-05-10] MEDS: Atorvastatin Calcium 40 MG Tablet PO (22:46)
[2021-05-11 05:12] VITALS: BP 114/63; PULSE 69; RESP 16; TEMP 35.9; O2SAT 16
[2021-05-11 05:13] VITALS: O2SAT 94
[2021-05-11 05:14] VITALS: BP 114/63; PULSE 69
[2021-05-11] MEDS: Escitalopram Oxalate 10 MG Tablet 5 MG PO (05:14)
[2021-05-11] MEDS: Levothyroxine 100 MCG Tablet PO (05:14)
[2021-05-11] MEDS: APIXABAN 5 MG TABLET PO ×2 (05:14→16:42)
[2021-05-11] MEDS: Metoprolol Tartrate 25 MG Tablet PO (05:14)
[2021-05-11] MEDS: Cholecalciferol (VIT D3) 25 MCG TABLET (1,000 UNITS) 50 MCG PO (05:14)
[2021-05-11] MEDS: Aspirin 81 MG TAB.CHEW PO (08:36)
[2021-05-11] MEDS: Iron Polysaccharide Complex 150 MG CAPSULE PO (08:36)
[2021-05-11] MEDS: Multivitamin (Healthy Eyes) Capsule 1 CAP PO (08:36)
[2021-05-11 14:52] VITALS: BP 112/47; PULSE 71; RESP 15; TEMP 36.4; O2SAT 96
[2021-05-11 16:44] VITALS: BP 105/46; PULSE 70
[2021-05-11] MEDS: Atorvastatin Calcium 40 MG Tablet PO (21:34)
[2021-05-11] MEDS: MELATONIN 10 MG TABLET PO (22:26)
[2021-05-12 05:36] VITALS: BP 110/62; PULSE 70; RESP 20; TEMP 35.8; O2SAT 95
[2021-05-12 05:37] VITALS: BP 110/62; PULSE 70
[2021-05-12] MEDS: Levothyroxine 100 MCG Tablet PO (05:37)
[2021-05-12] MEDS: Metoprolol Tartrate 25 MG Tablet PO ×2 (05:37→17:14)
[2021-05-12] MEDS: Escitalopram Oxalate 10 MG Tablet 5 MG PO (05:37)
[2021-05-12] MEDS: Cholecalciferol (VIT D3) 25 MCG TABLET (1,000 UNITS) 50 MCG PO (05:38)
[2021-05-12] MEDS: APIXABAN 5 MG TABLET PO ×2 (05:38→17:14)
[2021-05-12] MEDS: Aspirin 81 MG TAB.CHEW PO (08:41)
[2021-05-12] MEDS: Multivitamin (Healthy Eyes) Capsule 1 CAP PO (08:41)
[2021-05-12] MEDS: Iron Polysaccharide Complex 150 MG CAPSULE PO (08:41)
[2021-05-12 14:14] VITALS: BP 101/57; PULSE 72; RESP 16; TEMP 36.3; O2SAT 95
[2021-05-12 17:13] VITALS: BP 134/74; PULSE 69
[2021-05-12 17:14] VITALS: PULSE 69
[2021-05-12 20:00] VITALS: PULSE 74; RESP 14; O2SAT 100
[2021-05-12] MEDS: MELATONIN 10 MG TABLET PO (21:03)
[2021-05-12] MEDS: Atorvastatin Calcium 40 MG Tablet PO (21:04)
[2021-05-13 05:34] VITALS: BP 123/62; PULSE 68
[2021-05-13] MEDS: Levothyroxine 100 MCG Tablet PO (05:35)
[2021-05-13] MEDS: APIXABAN 5 MG TABLET PO ×2 (05:35→17:11)
[2021-05-13 05:36] VITALS: BP 123/62; PULSE 68
[2021-05-13] MEDS: Metoprolol Tartrate 25 MG Tablet PO ×2 (05:36→17:11)
[2021-05-13] MEDS: Cholecalciferol (VIT D3) 25 MCG TABLET (1,000 UNITS) 50 MCG PO (05:36)
[2021-05-13] MEDS: Escitalopram Oxalate 10 MG Tablet 5 MG PO (05:36)
[2021-05-13] MEDS: Multivitamin (Healthy Eyes) Capsule 1 CAP PO (09:20)
[2021-05-13] MEDS: Aspirin 81 MG TAB.CHEW PO (09:20)
[2021-05-13] MEDS: Iron Polysaccharide Complex 150 MG CAPSULE PO (09:20)
--- NOTE | 2021-05-13 15:46 | CASEMGMT ---
Addendum entered by Priti Tellez 05/22/21 08:38: ST requesting to be added to [facility] order. Pt agreeable. Updated order and referral to [facility]. Original Note: Social Work Met with patient in room. This social service agency director communicating to patient that discharge date has been set for 05/23/2021. Patient is agreeable to discharge date and request for patient Obinna carmen ([phone]). Patient lives at home alone. Patient son lives out of state. Patient reports to have support from neighbors and friends. Patient states that a friend will be able to provide transportation to home for patient. Patient reports to have all needed DME already set up within the home. This social service agency director communicated to patient that physical and occupational therapy are recommending for patient to continue with services within the home. Patient is agreeable to this recommendation and request for home health services to be set up through [facility]. Support provided. Telephone call to patient Obinna carmen. Obinna updated on above information and agreeable to discharge date/plan. [facility] Referral for PT/OT made. Order entered. Proposed discharge date: 05/23/2021 Disposition: Home alone with home health services. Sergo HASKINS, ORALIA
[2021-05-13 16:52] VITALS: BP 100/54; PULSE 69; RESP 16; TEMP 36.3; O2SAT 96
[2021-05-13 17:11] VITALS: BP 125/65; PULSE 69
[2021-05-13 20:13] VITALS: PULSE 65; RESP 18; O2SAT 96
--- NOTE | 2021-05-13 21:08 | PCM.DC.SUM ---
Providers Date of Admission: 04/25/21 Primary Care Physician: Dr. Rod Ochoa MD Reason For Visit: RIGHT SIDED WEAKNESS Diagnosis Discharge Diagnosis (1) Debility: Status: Acute Code(s): R53.81 - Other malaise (2) Stroke: Status: Acute Code(s): I63.9 - Cerebral infarction, unspecified (3) Right hemiparesis: Status: Acute Code(s): G81.91 - Hemiplegia, unspecified affecting right dominant side (4) Atrial fibrillation: Status: Acute Code(s): I48.91 - Unspecified atrial fibrillation (5) Hypothyroidism: Status: Acute Code(s): E03.9 - Hypothyroidism, unspecified (6) Hypertension: Status: Chronic Code(s): I10 - Essential (primary) hypertension (7) Hyperlipidemia: Status: Acute Code(s): E78.5 - Hyperlipidemia, unspecified (8) Microscopic colitis: Status: Acute Code(s): K52.839 - Microscopic colitis, unspecified (9) Asthma: Status: Acute Code(s): J45.909 - Unspecified asthma, uncomplicated (10) Depression: Status: Acute Code(s): F32.9 - Major depressive disorder, single episode, unspecified (11) Iron deficiency anemia: Status: Acute Code(s): D50.9 - Iron deficiency anemia, unspecified Medications at Discharge Home Medications biotin 1 mg capsule 1 mg PO DAILY 06/29/18 cholecalciferol (vitamin D3) 2,000 unit PO DAILY 05/30/19 levothyroxine 100 mcg PO DAILY 05/30/19 fr-hcp-WA-We-Wz-atexyce-lutein 1 ea PO DAILY 06/03/19 escitalopram oxalate 5 mg tablet 5 mg PO DAILY 01/23/20 glucosamine-chondroitin 250 mg-200 mg tablet 2 tab PO DAILY tab 02/09/21 metoprolol tartrate 25 mg tablet 25 mg PO BID tab 02/09/21 polysaccharide iron complex [Ferrex 150] 150 mg PO DAILY 04/24/21 apixaban [Eliquis] 5 mg PO BID 30 Days #60 tab 05/13/21 atorvastatin 40 mg PO QHS 30 Days #30 tab 05/13/21 Hospital Course Operations None Procedures None Summary of Care Provided Minutes Spent on Discharge: 35 Hospital Course: 86 year old female with below past medical history hospitalized for stroke, with right upper extremity hemiparesis, admitted to TCU with debility, here for rehabilitation, strengthening, prior to discharge home alone. Discharge home alone 05/23/2021, [facility] PT/OT. Physical Exam Const alert and oriented x3 General Appearance: cooperative HEENT normocephalic Eyes PERRL and EOMs intact bilaterally Neck supple, no JVD and no carotid bruits Resp normal respiratory effort, normal air movement and clear to auscultation bilaterally Cardio regular rate and regular rhythm GI normal to inspection, nondistended, normoactive bowel sounds, non-tender and non-distended Extremity normal capillary refill General Extremity: Negative for edema Skin no rashes or lesions noted General Skin Exam: no breakdown Psych affect normal Appearance: appropriate Weight / BMI Weight Weight: 64.637 kg Body Mass Index (BMI) 20.9 ABG / Lab / Microbiology Data Result Diagrams: 05/10/21 06:21 05/10/21 06:21 Laboratory: Laboratory Results - last 24 hr 05/12/21 14:05: COVID-19 ([place]) Not Detected D/C Instructions Please Follow Up With: neurologist of her choice, except Dr Starks (wont accept her insurance) Meaningful Use Info Meaningful Use Diagnoses (Choose all that apply): Ischemic CVA CVA Therapy Assessed for PT,OT and/or ST?: Yes Ischemic Stroke Antithrombotic order at d/c?: Yes Dx of Atrial fib/flutter?: Yes Anticoagulant at discharge?: Yes Statins at discharge?: Yes Primary Dx Acute Ischemic CVA?: Yes IV tPA ordered during stay?: No Reason IV t-PA not ordered: Treatment not Indicated Discharge Plan Admission Admit Date/Time: 04/25/21 22:45 Primary Reason for Your Visit: Debility Attending Provider: Rod Ochoa Chi Primary Care Provider: Rod Ochoa Chi Instructions Additional Instructions / Restrictions: Discharge home alone 05/23/2021, [facility] PT/OT. Discharge Orders/Prescriptions Prescriptions: New Eliquis 5 mg Tablet 5 mg PO BID 30 Days Qty: 60 RF: 0 Continued biotin 1 mg capsule 1 mg PO DAILY RF: 0 escitalopram oxalate 5 mg tablet 5 mg PO DAILY RF: 0 glucosamine-chondroitin [Osteo Bi-Flex] 250-200 mg tablet 2 tab PO DAILY RF: 0 levothyroxine 100 MCG tablet 100 mcg PO DAILY RF: 0 cholecalciferol (vitamin D3) 2,000 UNIT capsule 2,000 unit PO DAILY RF: 0 metoprolol tartrate 25 mg tablet 25 mg PO BID RF: 0 xi-gfa-SR-Oc-Uj-rqnwbmk-lutein 1 EACH tablet 1 ea PO DAILY RF: 0 polysaccharide iron complex [Ferrex 150] 150 mg iron capsule 150 mg PO DAILY RF: 0 atorvastatin 40 mg tablet 40 mg PO QHS 30 Days Qty: 30 RF: 0 Discontinued apixaban 2.5 MG tablet 5 mg PO BID 30 Days Qty: 120 RF: 0 aspirin 81 mg tablet,chewable 81 mg PO DAILY@0800 RF: 0 Referrals / Follow Up: Rod Ochoa Chi, MD [Primary Care Provider] - Within 1 Week Disposition Disposition (needs filled in before D/C Order can be placed): Home Health Service
[2021-05-13] MEDS: Atorvastatin Calcium 40 MG Tablet PO (21:59)
[2021-05-13] MEDS: MELATONIN 10 MG TABLET PO (22:01)
[2021-05-14 06:02] VITALS: BP 115/65; PULSE 70
[2021-05-14 06:03] VITALS: PULSE 70
[2021-05-14] MEDS: Escitalopram Oxalate 10 MG Tablet 5 MG PO (06:03)
[2021-05-14] MEDS: Cholecalciferol (VIT D3) 25 MCG TABLET (1,000 UNITS) 50 MCG PO (06:03)
[2021-05-14] MEDS: Metoprolol Tartrate 25 MG Tablet PO ×2 (06:03→17:37)
[2021-05-14] MEDS: Levothyroxine 100 MCG Tablet PO (06:03)
[2021-05-14] MEDS: APIXABAN 5 MG TABLET PO ×2 (06:04→17:40)
[2021-05-14] MEDS: Aspirin 81 MG TAB.CHEW PO (09:00)
[2021-05-14] MEDS: Iron Polysaccharide Complex 150 MG CAPSULE PO (09:00)
[2021-05-14] MEDS: Multivitamin (Healthy Eyes) Capsule 1 CAP PO (09:00)
--- NOTE | 2021-05-14 09:10 | CASEMGMT ---
Social Work Telephone call received from [facility] Kailee CLAROS. Patient has been accepted. Proposed discharge date: 05/23/2021 Disposition: Home alone with home health care. Sergo HASKINS, ORALIA
[2021-05-14 15:06] VITALS: BP 98/59; PULSE 70; RESP 14; TEMP 36.6; O2SAT 96
[2021-05-14 15:12] VITALS: PULSE 70; RESP 14; O2SAT 96
[2021-05-14 17:37] VITALS: BP 136/56; PULSE 70
[2021-05-14] MEDS: Atorvastatin Calcium 40 MG Tablet PO (20:33)
[2021-05-15] MEDS: Acetaminophen 500 MG Tablet 1000 MG PO ×2 (03:23→11:03)
[2021-05-15] MEDS: Cholecalciferol (VIT D3) 25 MCG TABLET (1,000 UNITS) 50 MCG PO (06:27)
[2021-05-15 06:28] VITALS: BP 119/60; PULSE 71
[2021-05-15] MEDS: APIXABAN 5 MG TABLET PO ×2 (06:28→17:04)
[2021-05-15] MEDS: Metoprolol Tartrate 25 MG Tablet PO ×2 (06:28→17:04)
[2021-05-15] MEDS: Levothyroxine 100 MCG Tablet PO (06:28)
[2021-05-15] MEDS: Escitalopram Oxalate 10 MG Tablet 5 MG PO (06:28)
[2021-05-15] MEDS: Iron Polysaccharide Complex 150 MG CAPSULE PO (08:54)
[2021-05-15] MEDS: Multivitamin (Healthy Eyes) Capsule 1 CAP PO (08:54)
[2021-05-15] MEDS: Aspirin 81 MG TAB.CHEW PO (08:54)
[2021-05-15 12:08] VITALS: BP 120/62; PULSE 69; RESP 16; TEMP 36.1; O2SAT 96
[2021-05-15 17:04] VITALS: PULSE 68
[2021-05-15] MEDS: Atorvastatin Calcium 40 MG Tablet PO (21:43)
[2021-05-16 05:08] VITALS: BP 113/61; PULSE 69
[2021-05-16] MEDS: Cholecalciferol (VIT D3) 25 MCG TABLET (1,000 UNITS) 50 MCG PO (05:08)
[2021-05-16] MEDS: Levothyroxine 100 MCG Tablet PO (05:08)
[2021-05-16] MEDS: APIXABAN 5 MG TABLET PO ×2 (05:08→17:14)
[2021-05-16] MEDS: Metoprolol Tartrate 25 MG Tablet PO ×2 (05:08→17:14)
[2021-05-16] MEDS: Escitalopram Oxalate 10 MG Tablet 5 MG PO (05:09)
[2021-05-16] MEDS: Iron Polysaccharide Complex 150 MG CAPSULE PO (08:59)
[2021-05-16] MEDS: Aspirin 81 MG TAB.CHEW PO (08:59)
[2021-05-16] MEDS: Multivitamin (Healthy Eyes) Capsule 1 CAP PO (08:59)
[2021-05-16 16:00] VITALS: BP 116/67; PULSE 59; RESP 16; TEMP 36.4; O2SAT 94
[2021-05-16 17:14] VITALS: PULSE 70
[2021-05-16] MEDS: Atorvastatin Calcium 40 MG Tablet PO (20:37)
[2021-05-16] MEDS: MELATONIN 10 MG TABLET PO (20:37)
[2021-05-17] MEDS: Acetaminophen 500 MG Tablet 1000 MG PO (00:27)
--- NOTE | 2021-05-17 00:29 | NURSING ---
PRN tylenol administered as ordered per pt. request shoulder pain, pt states I think I worked it to much with therapy. No distress observed or reported. Denies further requests. Call light in reach.
[2021-05-17] MEDS: Levothyroxine 100 MCG Tablet PO (05:15)
[2021-05-17] MEDS: Cholecalciferol (VIT D3) 25 MCG TABLET (1,000 UNITS) 50 MCG PO (05:15)
[2021-05-17] MEDS: APIXABAN 5 MG TABLET PO ×2 (05:15→16:53)
[2021-05-17 05:16] VITALS: BP 116/64; PULSE 69
[2021-05-17] MEDS: Metoprolol Tartrate 25 MG Tablet PO ×2 (05:16→16:53)
[2021-05-17] MEDS: Escitalopram Oxalate 10 MG Tablet 5 MG PO (05:16)
[2021-05-17 07:12] LABS: Absolute Lymphocyte Count 1.03 X10^3/uL (0.83-4.51); Absolute Neutrophil Count 3.1 X10^3/uL (2.0-7.7); Basophil# 0.08 X10^3/uL; Basophil% 1.5 % (0-1); Eosinophil# 0.36 X10^3/uL; Eosinophils% 6.9 % (0-5); Hemoglobin 10.8 g/dL (12.0-15.0); Lymphocyte # 1.03 X10^3/ul (0.83-4.51); Lymphocyte % 19.7 % (19-41); Mean Corp Hgb Conc 32.7 g/dL (32-36); Mean Corpuscular Hgb 31.4 pg (27.0-32.0); Mean Corpuscular Volume 95.9 fL (81-99); Mean Platelet Vol. 10.4 fl (6.2-12.0); Monocyte# 0.65 X10^3/uL; Monocyte% 12.4 % (0-10); NRBC Flagged by Analyzer 0 % (0-5); Neutrophil % 59.3 % (47-70); Platelet Count 155 K/mm3 (150-450); RBC Distribution Width CV 12.3 % (11.6-14.6); RBC Distribution Width SD 42.9 fl (35.1-43.9); Red Blood Count 3.44 M/mm3 (4.2-5.4); White Blood Count 5.2 K/mm3 (4.4-11.0)
[2021-05-17 07:59] LABS: Anion Gap 6 (5-15); BUN 25 mg/dL (7-18); BUN/Creat Ratio 34.6 RATIO (10-20); Chloride 108 mmol/L (98-107); Creatinine, Serum 0.72 mg/dL (0.55-1.02); EST Glomerular Filtration Rate 82 mL/min (>60); Est Glom Filt Rate - Afr Amer 99 mL/min (>60); Estimated Creatinine Clearance 41.49 ml/min; Glucose 85 mg/dL (74-106); Potassium 3.9 mmol/L (3.5-5.1); Sodium Level 142 mmol/L (136-145)
[2021-05-17] MEDS: Aspirin 81 MG TAB.CHEW PO (08:33)
[2021-05-17] MEDS: Multivitamin (Healthy Eyes) Capsule 1 CAP PO (08:33)
[2021-05-17] MEDS: Iron Polysaccharide Complex 150 MG CAPSULE PO (08:33)
[2021-05-17 13:57] VITALS: BP 120/68; PULSE 70; RESP 18; TEMP 36.3; O2SAT 98
[2021-05-17 16:53] VITALS: PULSE 70
[2021-05-17] MEDS: MELATONIN 10 MG TABLET PO (20:59)
[2021-05-17] MEDS: Atorvastatin Calcium 40 MG Tablet PO (20:59)
[2021-05-18] MEDS: Cholecalciferol (VIT D3) 25 MCG TABLET (1,000 UNITS) 50 MCG PO (05:09)
[2021-05-18 05:10] VITALS: BP 117/69; PULSE 71
[2021-05-18] MEDS: Metoprolol Tartrate 25 MG Tablet PO ×2 (05:10→17:31)
[2021-05-18] MEDS: Levothyroxine 100 MCG Tablet PO (05:10)
[2021-05-18] MEDS: APIXABAN 5 MG TABLET PO ×2 (05:10→17:32)
[2021-05-18] MEDS: Escitalopram Oxalate 10 MG Tablet 5 MG PO (05:10)
[2021-05-18] MEDS: Multivitamin (Healthy Eyes) Capsule 1 CAP PO (08:29)
[2021-05-18] MEDS: Iron Polysaccharide Complex 150 MG CAPSULE PO (08:29)
[2021-05-18] MEDS: Aspirin 81 MG TAB.CHEW PO (08:29)
[2021-05-18 15:42] VITALS: BP 128/71; PULSE 70; RESP 14; TEMP 36.8; O2SAT 98
[2021-05-18 17:31] VITALS: BP 131/58; PULSE 78
[2021-05-18] MEDS: Atorvastatin Calcium 40 MG Tablet PO (22:15)
[2021-05-18] MEDS: MELATONIN 10 MG TABLET PO (22:17)
[2021-05-18] MEDS: Acetaminophen 500 MG Tablet 1000 MG PO (22:17)
[2021-05-18 22:22] VITALS: PULSE 68; RESP 16; O2SAT 96
[2021-05-19 05:32] VITALS: BP 111/61; PULSE 70
[2021-05-19 05:33] VITALS: PULSE 70
[2021-05-19] MEDS: Levothyroxine 100 MCG Tablet PO (05:33)
[2021-05-19] MEDS: Cholecalciferol (VIT D3) 25 MCG TABLET (1,000 UNITS) 50 MCG PO (05:33)
[2021-05-19] MEDS: Metoprolol Tartrate 25 MG Tablet PO ×2 (05:33→17:06)
[2021-05-19] MEDS: APIXABAN 5 MG TABLET PO ×2 (05:33→17:06)
[2021-05-19] MEDS: Escitalopram Oxalate 10 MG Tablet 5 MG PO (05:34)
[2021-05-19] MEDS: Iron Polysaccharide Complex 150 MG CAPSULE PO (08:00)
[2021-05-19] MEDS: Multivitamin (Healthy Eyes) Capsule 1 CAP PO (08:00)
[2021-05-19] MEDS: Aspirin 81 MG TAB.CHEW PO (08:00)
[2021-05-19 13:11] VITALS: PULSE 69; RESP 16; O2SAT 97
[2021-05-19 15:34] VITALS: BP 129/54; PULSE 69; RESP 16; TEMP 36.8; O2SAT 97
[2021-05-19 17:06] VITALS: BP 133/73; PULSE 69
[2021-05-19] MEDS: Atorvastatin Calcium 40 MG Tablet PO (20:48)
[2021-05-20 05:37] VITALS: BP 112/60; PULSE 69
[2021-05-20 05:38] VITALS: PULSE 69
[2021-05-20] MEDS: Escitalopram Oxalate 10 MG Tablet 5 MG PO (05:38)
[2021-05-20] MEDS: Metoprolol Tartrate 25 MG Tablet PO ×2 (05:38→17:06)
[2021-05-20] MEDS: Levothyroxine 100 MCG Tablet PO (05:39)
[2021-05-20] MEDS: APIXABAN 5 MG TABLET PO ×2 (05:39→17:06)
[2021-05-20] MEDS: Cholecalciferol (VIT D3) 25 MCG TABLET (1,000 UNITS) 50 MCG PO (05:39)
[2021-05-20] MEDS: Aspirin 81 MG TAB.CHEW PO (08:16)
[2021-05-20] MEDS: Iron Polysaccharide Complex 150 MG CAPSULE PO (08:16)
[2021-05-20] MEDS: Multivitamin (Healthy Eyes) Capsule 1 CAP PO (08:16)
[2021-05-20 16:00] VITALS: BP 119/68; PULSE 63; RESP 15; TEMP 36.3; O2SAT 99
--- NOTE | 2021-05-20 16:14 | CASEMGMT ---
Social Work Brief interview for mental status (BIMS) and resident mood interview (PHQ-9) completed on this day. Sergo HASKINS, SCOOTERS
[2021-05-20 17:06] VITALS: PULSE 63
[2021-05-20] MEDS: Atorvastatin Calcium 40 MG Tablet PO (21:45)
[2021-05-21] MEDS: Escitalopram Oxalate 10 MG Tablet 5 MG PO (05:34)
[2021-05-21] MEDS: Cholecalciferol (VIT D3) 25 MCG TABLET (1,000 UNITS) 50 MCG PO (05:34)
[2021-05-21 05:35] VITALS: BP 115/62; PULSE 69
[2021-05-21] MEDS: Levothyroxine 100 MCG Tablet PO (05:35)
[2021-05-21] MEDS: Metoprolol Tartrate 25 MG Tablet PO ×2 (05:35→16:33)
[2021-05-21] MEDS: APIXABAN 5 MG TABLET PO ×2 (05:35→16:32)
[2021-05-21] MEDS: Aspirin 81 MG TAB.CHEW PO (08:16)
[2021-05-21] MEDS: Iron Polysaccharide Complex 150 MG CAPSULE PO (08:16)
[2021-05-21] MEDS: Multivitamin (Healthy Eyes) Capsule 1 CAP PO (08:16)
[2021-05-21 15:30] VITALS: BP 137/64; PULSE 71; RESP 16; TEMP 36.3; O2SAT 97
[2021-05-21 16:33] VITALS: BP 111/70; PULSE 68
[2021-05-21 20:30] VITALS: PULSE 79; RESP 14; O2SAT 96
[2021-05-21] MEDS: Acetaminophen 500 MG Tablet 1000 MG PO (22:44)
[2021-05-21] MEDS: MELATONIN 10 MG TABLET PO (22:45)
[2021-05-21] MEDS: Atorvastatin Calcium 40 MG Tablet PO (22:45)
[2021-05-22] MEDS: Cholecalciferol (VIT D3) 25 MCG TABLET (1,000 UNITS) 50 MCG PO (05:33)
[2021-05-22] MEDS: Levothyroxine 100 MCG Tablet PO (05:33)
[2021-05-22] MEDS: APIXABAN 5 MG TABLET PO ×2 (05:33→17:01)
[2021-05-22 05:34] VITALS: BP 112/62; PULSE 69
[2021-05-22] MEDS: Escitalopram Oxalate 10 MG Tablet 5 MG PO (05:34)
[2021-05-22] MEDS: Metoprolol Tartrate 25 MG Tablet PO ×2 (05:34→17:01)
[2021-05-22] MEDS: Iron Polysaccharide Complex 150 MG CAPSULE PO (08:50)
[2021-05-22] MEDS: Multivitamin (Healthy Eyes) Capsule 1 CAP PO (08:50)
[2021-05-22] MEDS: Aspirin 81 MG TAB.CHEW PO (08:50)
[2021-05-22 16:08] VITALS: BP 96/50; PULSE 69; RESP 16; TEMP 36.3; O2SAT 96
[2021-05-22 16:59] VITALS: BP 109/64; PULSE 69
[2021-05-22 17:01] VITALS: PULSE 69
[2021-05-22] MEDS: MELATONIN 10 MG TABLET PO (21:47)
[2021-05-22] MEDS: Atorvastatin Calcium 40 MG Tablet PO (21:47)
[2021-05-22] MEDS: Acetaminophen 500 MG Tablet 1000 MG PO (21:47)
[2021-05-23 05:42] VITALS: BP 131/70; PULSE 69
[2021-05-23] MEDS: Metoprolol Tartrate 25 MG Tablet PO (05:42)
[2021-05-23] MEDS: Cholecalciferol (VIT D3) 25 MCG TABLET (1,000 UNITS) 50 MCG PO (05:43)
[2021-05-23] MEDS: Escitalopram Oxalate 10 MG Tablet 5 MG PO (05:43)
[2021-05-23] MEDS: APIXABAN 5 MG TABLET PO (05:43)
[2021-05-23] MEDS: Levothyroxine 100 MCG Tablet PO (05:44)
[2021-05-23] MEDS: Multivitamin (Healthy Eyes) Capsule 1 CAP PO (08:22)
[2021-05-23] MEDS: Aspirin 81 MG TAB.CHEW PO (08:22)
[2021-05-23] MEDS: Iron Polysaccharide Complex 150 MG CAPSULE PO (08:22)
[2021-05-23 12:10] VITALS: PULSE 69; RESP 16; O2SAT 96
[2021-05-23 12:43] VITALS: BP 107/54; PULSE 69; RESP 16; TEMP 36.6; O2SAT 96
[2021-05-23 12:50] VITALS: BP 107/54; PULSE 69; RESP 16; TEMP 36.6; O2SAT 96
== END 2021-05-23 12:52 | disposition home health service (06) | DRG 57 ==
PROVIDERS: Admitting Provider Family Medicine Geriatric Medicine; PCP Family Medicine Geriatric Medicine; Visit Provider Family Medicine Geriatric Medicine
DX: I69.351 Hemiplegia and hemiparesis following cerebral infarction affecting right dominant side (principal); I48.19 Other persistent atrial fibrillation; E78.5 Hyperlipidemia, unspecified; I10 Essential (primary) hypertension; D50.9 Iron deficiency anemia, unspecified; M19.90 Unspecified osteoarthritis, unspecified site; J45.20 Mild intermittent asthma, uncomplicated; M06.9 Rheumatoid arthritis, unspecified; F32.9 Major depressive disorder, single episode, unspecified; E89.0 Postprocedural hypothyroidism; E55.9 Vitamin D deficiency, unspecified; Z79.899 Other long term (current) drug therapy; Z79.01 Long term (current) use of anticoagulants; Z79.82 Long term (current) use of aspirin; Z95.0 Presence of cardiac pacemaker
CPT/HCPCS: 36415; 80048; 85025; 87635; 92507; 92523; 97110; 97112; 97116; 97129; 97130; 97162; 97165; 97530; 97535; 97802; U0005; A4216; U0003

== ENCOUNTER → 2021-05-26 15:03 | Outpatient (CLI) | payer MEDICARE, OTHER, SELFPAY ==
--- NOTE | 2021-05-26 15:31 | RAD_ITS ---
STUDY: X-RAY - RIGHT FOOT CLINICAL: Female, 86 years old. Pain in right foot. Medial foot pain after walking down stair case. TECHNIQUE: 3 view(s) of the foot. COMPARISON: None. FINDINGS: Generalized osteopenia. There is a plantar calcaneal spur. Normal talus and tarsal. Mild arthrosis of the visualized subtalar, talonavicular, calcaneocuboid, tarsal and tarsometatarsal articulations. Normal metatarsi. There is degenerative arthrosis of the metatarsophalangeal joint of the hallux with a hallux valgus deformity. Normal tibial and fibular sesamoid bones. Normal interphalangeal joint of the great toe. Normal phalanges of the great toe. Normal second through fifth metatarsophalangeal joints. Normal interphalangeal joints and phalanges of the lesser toes. Vascular calcifications are seen within the soft tissues. RAD/Foot min 3 Views IMPRESSION: Osteopenia and degenerative changes of the right foot. There is no visualized fracture or dislocation. Electronically Signed: Juan J Del Castillo DO at 19:10 EDT Tel [phone], Service support ,
[2021-05-26 16:26] LABS: Absolute Lymphocyte Count 1.13 X10^3/uL (0.83-4.51); Absolute Neutrophil Count 3.6 X10^3/uL (2.0-7.7); Basophil# 0.05 X10^3/uL; Basophil% 0.9 % (0-1); Eosinophils% 3.5 % (0-5); Hematocrit 37.4 % (37-47); Hemoglobin 11.8 g/dL (12.0-15.0); Lymphocyte # 1.13 X10^3/ul (0.83-4.51); Mean Corp Hgb Conc 31.6 g/dL (32-36); Mean Corpuscular Hgb 30.3 pg (27.0-32.0); Mean Corpuscular Volume 95.9 fL (81-99); Mean Platelet Vol. 11.9 fl (6.2-12.0); Monocyte# 0.65 X10^3/uL; Monocyte% 11.5 % (0-10); NRBC Flagged by Analyzer 0 % (0-5); Neutrophil # 3.61 X10^3/uL (2.7-7.7); Neutrophil % 63.9 % (47-70); Platelet Count 173 K/mm3 (150-450); RBC Distribution Width CV 12.6 % (11.6-14.6); White Blood Count 5.7 K/mm3 (4.4-11.0)
[2021-05-26 16:45] LABS: Vitamin D,25 Hydroxy 66.7 ng/mL
[2021-05-26 16:49] LABS: ALB/GLOB Ratio 0.8 RATIO (0.9-2.4); AST(SGOT) 23 U/L (15-37); Alanine Aminotransfer ALT/SGPT 22 U/L (13-56); Albumin, Serum 3.2 g/dL (3.2-5.0); Alkaline Phosphatase 64 U/L (45-117); Anion Gap 6 (5-15); BUN 22 mg/dL (7-18); BUN/Creat Ratio 26.8 RATIO (10-20); Calcium,Total 9.2 mg/dL (8.5-10.1); Chloride 106 mmol/L (98-107); Creatinine, Serum 0.82 mg/dL (0.55-1.02); EST Glomerular Filtration Rate 70 mL/min (>60); Est Glom Filt Rate - Afr Amer 85 mL/min (>60); Glucose 103 mg/dL (74-106); Potassium 4.2 mmol/L (3.5-5.1); Protein, Total 7.2 g/dL (6.4-8.2); Sodium Level 140 mmol/L (136-145); Thyroid Stim Hormone (TSH) 0.61 uIU/mL (0.358-3.74)
== END ==
PROVIDERS: PCP Family Medicine Geriatric Medicine; Referring Provider Family Medicine Geriatric Medicine; Visit Provider Family Medicine Geriatric Medicine
DX: E55.9 Vitamin D deficiency, unspecified (principal); I10 Essential (primary) hypertension; M79.671 Pain in right foot
CPT/HCPCS: 36415; 73630; 80053; 82306; 84443; 85025

== ENCOUNTER → 2021-07-10 14:32 | Outpatient (CLI) | payer MEDICARE, OTHER, SELFPAY ==
--- NOTE | 2021-07-10 14:35 | CT_ITS ---
STUDY: CT BRAIN WITHOUT CONTRAST REASON FOR EXAM: Female, 86 years old. INJURY OF HEAD DUE to a fall. No loss of consciousness. RADIATION DOSAGE (If Supplied By Facility): CTDIvol = ( 47.06 ) mGy, DLP = ( 837.39 ) mGycm TECHNIQUE: Transaxial CT imaging of the brain was performed without administration of intravenous contrast material. Individualized dose optimization techniques were used for this CT. COMPARISON: Comparison is made with prior study 04/25/2021. FINDINGS: Normal soft tissue structures. Normal calvarium. There is moderate cerebral atrophy with widening of the extra-axial spaces and ventricular dilatation. There are areas of decreased attenuation within the white matter tracts of the supratentorial brain, consistent with microvascular disease changes. Normal basal ganglia and thalami. Normal brainstem. There is mild cerebellar atrophy. There is no intracranial hemorrhage. There are no findings of an acute ischemic infarction. Atherosclerotic calcification of the cavernous portions of the internal carotid arteries bilaterally. Right maxillary sinusitis. CT/Brain/Head without Contrast IMPRESSION: Chronic involutional changes of the brain. No acute abnormality is seen. Electronically Signed: Reji Ramírez MD at 15:01 EDT , Service support ,
== END ==
PROVIDERS: PCP Family Medicine Geriatric Medicine; Referring Provider Family Medicine Geriatric Medicine; Visit Provider Family Medicine Geriatric Medicine
DX: S09.90XA Unspecified injury of head, initial encounter (principal)
CPT/HCPCS: 70450

== ENCOUNTER → 2021-08-27 12:03 | Outpatient (CLI) | payer MEDICARE, OTHER, SELFPAY ==
[2021-08-27 12:26] LABS: Absolute Lymphocyte Count 1.27 X10^3/uL (0.83-4.51); Absolute Neutrophil Count 3.7 X10^3/uL (2.0-7.7); Basophil# 0.06 X10^3/uL; Eosinophil# 0.14 X10^3/uL; Eosinophils% 2.4 % (0-5); Hematocrit 41.5 % (37-47); Hemoglobin 12.9 g/dL (12.0-15.0); Lymphocyte # 1.27 X10^3/ul (0.83-4.51); Lymphocyte % 21.7 % (19-41); Mean Corp Hgb Conc 31.1 g/dL (32-36); Mean Corpuscular Hgb 28.9 pg (27.0-32.0); Mean Corpuscular Volume 92.8 fL (81-99); Mean Platelet Vol. 10.4 fl (6.2-12.0); Monocyte# 0.66 X10^3/uL; Monocyte% 11.3 % (0-10); NRBC Flagged by Analyzer 0 % (0-5); Neutrophil # 3.68 X10^3/uL (2.7-7.7); Neutrophil % 62.9 % (47-70); Platelet Count 197 K/mm3 (150-450); RBC Distribution Width SD 47.9 fl (35.1-43.9); Red Blood Count 4.47 M/mm3 (4.2-5.4); White Blood Count 5.9 K/mm3 (4.4-11.0)
[2021-08-27 13:01] LABS: Vitamin D,25 Hydroxy 39.1 ng/mL
[2021-08-27 13:09] LABS: ALB/GLOB Ratio 0.8 RATIO (0.9-2.4); AST(SGOT) 24 U/L (15-37); Alanine Aminotransfer ALT/SGPT 21 U/L (13-56); Albumin, Serum 3.4 g/dL (3.2-5.0); Alkaline Phosphatase 58 U/L (45-117); Anion Gap 3 (5-15); BUN 30 mg/dL (7-18); BUN/Creat Ratio 31.5 RATIO (10-20); Calcium,Total 9.3 mg/dL (8.5-10.1); Chloride 106 mmol/L (98-107); Creatinine, Serum 0.95 mg/dL (0.55-1.02); EST Glomerular Filtration Rate 59 mL/min (>60); Est Glom Filt Rate - Afr Amer 72 mL/min (>60); Globulin 4.1 g/dL (2.2-4.2); Glucose 98 mg/dL (74-106); Protein, Total 7.5 g/dL (6.4-8.2); Sodium Level 141 mmol/L (136-145)
== END ==
PROVIDERS: PCP Family Medicine Geriatric Medicine; Visit Provider Family Medicine Geriatric Medicine
DX: E55.9 Vitamin D deficiency, unspecified (principal); I10 Essential (primary) hypertension
CPT/HCPCS: 36415; 80053; 82306; 84443; 85025

== ENCOUNTER 2021-11-11 14:31 | Outpatient (CLI) | payer MEDICARE, OTHER, SELFPAY ==
[2021-11-11 16:16] LABS: Absolute Lymphocyte Count 1.46 X10^3/uL (0.83-4.51); Absolute Neutrophil Count 3.4 X10^3/uL (2.0-7.7); Basophil# 0.08 X10^3/uL; Basophil% 1.4 % (0-1); Eosinophils% 3.5 % (0-5); Hematocrit 41.4 % (37-47); Hemoglobin 13.5 g/dL (12.0-15.0); Lymphocyte # 1.46 X10^3/ul (0.83-4.51); Lymphocyte % 25.3 % (19-41); Mean Corp Hgb Conc 32.6 g/dL (32-36); Mean Corpuscular Hgb 30.5 pg (27.0-32.0); Mean Corpuscular Volume 93.7 fL (81-99); Mean Platelet Vol. 12.1 fl (6.2-12.0); Monocyte# 0.59 X10^3/uL; Monocyte% 10.2 % (0-10); NRBC Flagged by Analyzer 0 % (0-5); Neutrophil # 3.39 X10^3/uL (2.7-7.7); Neutrophil % 58.9 % (47-70); Platelet Count 172 K/mm3 (150-450); RBC Distribution Width CV 14.8 % (11.6-14.6); RBC Distribution Width SD 51.6 fl (35.1-43.9); Red Blood Count 4.42 M/mm3 (4.2-5.4); White Blood Count 5.8 K/mm3 (4.4-11.0)
[2021-11-11 16:31] LABS: Vitamin D,25 Hydroxy 39.6 ng/mL
[2021-11-11 16:38] LABS: ALB/GLOB Ratio 0.9 RATIO (0.9-2.4); AST(SGOT) 18 U/L (15-37); Alanine Aminotransfer ALT/SGPT 16 U/L (13-56); Albumin, Serum 3.5 g/dL (3.2-5.0); Alkaline Phosphatase 55 U/L (45-117); Anion Gap 2 (5-15); BUN 28 mg/dL (7-18); BUN/Creat Ratio 27.2 RATIO (10-20); Calcium,Total 9.1 mg/dL (8.5-10.1); Chloride 107 mmol/L (98-107); Creatinine, Serum 1.03 mg/dL (0.55-1.02); EST Glomerular Filtration Rate 54 mL/min (>60); Est Glom Filt Rate - Afr Amer 65 mL/min (>60); Globulin 3.7 g/dL (2.2-4.2); Glucose 89 mg/dL (74-106); Protein, Total 7.2 g/dL (6.4-8.2); Sodium Level 142 mmol/L (136-145)
== END 2021-11-11 23:59 | disposition home or self-care (01) ==
LOC: POLAB3 14:34
PROVIDERS: PCP Family Medicine Geriatric Medicine; Visit Provider Family Medicine Geriatric Medicine
DX: E55.9 Vitamin D deficiency, unspecified (principal); I10 Essential (primary) hypertension
CPT/HCPCS: 36415; 80053; 82306; 84443; 85025

== ENCOUNTER → 2022-01-29 | Outpatient (CLI) | payer MEDICARE, OTHER, SELFPAY | END | disposition home or self-care (01) | LOC: LAB 13:38 | PROVIDERS: PCP Family Medicine Geriatric Medicine; Referring Provider Family Medicine Geriatric Medicine; Visit Provider Family Medicine Geriatric Medicine | DX: E03.9 Hypothyroidism, unspecified (principal) | CPT/HCPCS: 36415; 84443 ==

== ENCOUNTER 2022-02-21 11:55 | Emergency (ER) | payer MEDICARE, OTHER, SELFPAY ==
[2022-02-21 11:58] VITALS: PULSE 66; RESP 15; TEMP 36.2; O2SAT 97; BMI 23.9
[2022-02-21 11:59] VITALS: BP 158/75; PULSE 75; RESP 16; O2SAT 97
--- NOTE | 2022-02-21 12:03 | RAD_ITS ---
STUDY: X-RAY - PELVIS AND LEFT HIP REASON FOR EXAM: Female, 86 years old. FALL, hip pain TECHNIQUE: 3 views of the pelvis and hip. COMPARISON: None. FINDINGS: There is a non-specific bowel gas pattern. Normal visualized soft tissue structures. Normal bilateral iliac wings, sacroiliac joints and visualized sacrum. Normal bilateral superior and inferior pubic rami. Normal pubic symphysis. Normal bilateral ischial tuberosities. Healed fracture of the intertrochanteric femur with a femoral neck compression screw. Normal acetabulum. Normal hip joint. RAD/HIP, UNI W/ Pelvis 2-3 Views IMPRESSION: No acute fracture or dislocation. Electronically Signed: Ryan Colunga MD at 12:33 EDT ,
--- NOTE | 2022-02-21 12:32 | ED.VIS.LOWEX ---
HPI History of Present Illness HPI Narrative: Fell yesterday with left hip pain. Chief Complaint: Lower Extremity Injury Informant: patient Occured/Mechanism Mechanism/Context: Yes injury and Yes blunt trauma Onset/Context/Timing Onset: Yesterday Context: Sudden Onset Timing: Continuous Quality of Pain: Dull and Aching Current Severity: Gone Maximum Severity: Mild Associated Symptoms Associated Symptoms: Negative for Parasthesia, Weakness or Loss of Funtion Narrative Narrative: 86-year-old female bilateral hip replacements. Last night at home lost her balance fell injuring her left hip. States she scooted across the floor put her feet on her steps and use the railing to pull her self up. She denies other injuries. Did not get knocked out. Does not think she hit her head. No headache or neck pain. Prior to the fall she felt fine. Said the pain is actually better today but she called who brought her in to have her evaluated. Prior similar symptoms: Yes Recent Illness/Hospitalization: No PFSH PFSH Medical History Acquired hypothyroidism Anemia Arthritis Asthma Cardiology follow-up encounter Complete heart block Delayed wound healing Edema leg Essential (primary) hypertension History of GI bleed History of IBS History of stress test Hyperlipidemia Malnutrition Microscopic colitis Mild intermittent asthma Non-smoker Nonrheumatic mitral valve insufficiency Persistent atrial fibrillation Personal history of colonic polyps Rheumatoid arthritis Sick sinus syndrome Stroke/cerebrovascular accident Thyroid storm Ulcer of left lower extremity with fat layer exposed Ulcer of right lower extremity with fat layer exposed Venous insufficiency 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 Wears glasses Home Medications [id number] 0.4 mg-calcium 162 mg-iron 18 ab-plxaesq-kbwesh tablet 1 ea PO DAILY supplement 06/03/19 [History Last Taken 04/25/21 08:31] escitalopram oxalate 5 mg tablet 5 mg PO DAILY anxiety 01/23/20 [History Last Taken 04/25/21 08:32] levothyroxine 50 mcg tablet 50 mcg PO DAILY 08/17/21 [History Last Taken Unknown] linaclotide 72 mcg capsule (Linzess) 72 mcg PO DAILY 08/17/21 [History Last Taken Unknown] metoprolol tartrate 25 mg tablet 25 mg PO BID BP #180 tabs 08/17/21 [Rx Last Taken Unknown] Eliquis 5 mg BID 09/16/21 [History Last Taken Unknown] Allergy/AdvReac Type Severity Reaction Status Date / Time latex AdvReac Itching Verified 02/21/22 12:02 sulfamethoxazole AdvReac Nausea Verified 02/21/22 12:02 [From Bactrim] trimethoprim [From Bactrim] AdvReac Nausea Verified 02/21/22 12:02 Family History Father CAD (coronary artery disease) Brother Cancer Leukemia Brother Epilepsy Surgical History H/O thyroidectomy History of knee replacement History of permanent cardiac pacemaker placement History of right hip replacement Social History household members: none Smoking Status: Never smoker alcohol intake: never substance use type: does not use caffeine: Yes Type: tea Number of servings: 1 what type of physical activity do you participate in: other details: [employer] ROS ROS ED ROS Narrative Denies recent illness. Review of Systems ROS Unobtainable: Denies due to encephalopathy Constitutional Constitutional ED: Denies chills Eyes Eyes: Denies blurry vision ENT ENT ED: Denies ear pain Cardiovascular Cardiovascular: Denies chest pain Respiratory/Chest Respiratory/Chest: Denies cough Gastrointestinal Gastrointestinal: Denies abdominal pain Genitourinary Genitourinary ED: Denies dysuria Musculoskeletal Musculoskeletal: Denies arthralgias Integumentary Denies abscess Neurologic Neurologic: Denies headache(s) Psychiatric Psychiatric: Denies anxiety Endocrine Endocrinology: Denies polydipsia Hematologic/Lymphatic Hematologic/Lymphatic: Denies easy bleeding Allergic/Immunologic Allergic/Immunologic ED: Denies mouth swelling EXAM Physical Exam Narrative Exam Narrative: Well-appearing 86-year-old female. Vital signs are stable afebrile. Pulse ox 97% on room air no signs hypoxia. H EENT exam unremarkable atraumatic. No trauma to her face or scalp. Nontender. No bruising. Pupils round reactive light. Moist extremities. Neck nontender. Back and spine nontender. Trachea midline. Lungs clear to auscultation. Heart regular rate about 60. No murmur appreciated. Abdomen soft nontender. Pelvic girdle intact. There is no shortening or rotation of either hip. She can flex and extend both hips knees ankles and feet. There is no deformity. No shortening or rotation. No edema. Dorsi plantarflexion intact. Upper extremities are nontender. Neurologically she is awake and alert. Const Vital Signs: 02/21/22 11:58 02/21/22 11:59 Temperature 97.2 F L Temperature Source Temporal Pulse Rate 66 75 Respiratory Rate 15 16 Blood Pressure 158/75 H Blood Pressure Mean 102 Pulse Ox 97 97 Oxygen Delivery Method Room Air Room Air Positive well nourished and well developed; Negative for obese, cachectic, contractures or unkempt General Appearance ED: well developed; Negative for unkempt, cachectic or contractures Nutritional Appearance: Negative for cachectic or obese HEENT Reports moist mucous membranes normocephalic and atraumatic; Negative for trauma or tenderness Eyes PERRL Neck full ROM and supple Thyroid: Negative for tender Lymph Lymphatic: Negative for other Chest Wall inspection of chest normal and palpation of chest normal Resp normal respiratory effort, no retractions and clear to auscultation bilaterally Effort and Inspection: Negative for pain with movement Auscultation: Negative for rales, rhonchi or wheezes Cardio regular rate, regular rhythm, S1 normal heart sound and S2 normal heart sound Rate: Negative for bradycardia Rhythm: Negative for abnormal rhythm GI non-tender, non-distended and no masses Inspection: Negative for abdominal distention Auscultation: normoactive bowel sounds Palpation: soft; Negative for tender or guarding Back/Spine no CVA tenderness General Back: Negative for CVA tenderness Cervical Spine: Negative for cervical spine tenderness Thoracic Spine / Upper Back: Negative for thoracic spinal tenderness Lumbar Spine / Lower Back: Negative for lumbar spinal tenderness Extremity normal to inspection and full ROM General Extremety ED: Negative for cyanosis or edema General Extremity: Negative for cyanosis or edema Neuro Neuro Narrative: Hips are nontender. No shortening or rotation. There is no tenderness to either femur. She has normal flexion-extension of both hips, knees ankles and feet. There is no rotator or shortening. No bruising. Currently she is pain-free. Sensorium / Orientation: alert, oriented to person, oriented to place and oriented to time; Negative for orientation impaired, confused, lethargic or stuporous Motor Exam: strength 5/5 throughout Psych mental status grossly normal Appearance: Negative for unkempt Skin no wounds Lesions: no lesions Rashes: no rashes Trauma: Negative for abrasion or laceration [facility] MDM MDM Narrative Medical decision making narrative: 86-year-old with bilateral hip replacements lost her balance last night fell. Had pain to her left hip symptoms resolved today. X-rays were unremarkable. There is no fracture. Nurses will get her up and see if she can ambulate if she can ambulate with a walker she will be discharged home. Normally she uses a walker. There are no other injuries noted. Noted she have any other complaints. Patient's nurse got her up and walked her without any difficulty. She did well. Radiography Diagnostic Testing: Pelvis and left hip x-rays, 3 views, interpreted by myself shows bilateral hip hardware. No acute fracture or dislocation. No pelvic fractures. Interpreted by myself. Discharge Plan Triage Chief Complaint: Lower Extremity Injury ED Provider: Tc Nava Dx/Rx/DC Orders Clinical Impression: Fall, Contusion of hip, left, History of atrial fibrillation Instructions: ED Hip Contusion Prescriptions: No Action escitalopram oxalate 5 mg tablet 5 mg PO DAILY Linzess 72 mcg capsule 72 mcg PO DAILY levothyroxine 50 mcg tablet 50 mcg PO DAILY metoprolol tartrate 25 mg tablet 25 mg PO BID Qty: 180 3RF hj-ize-YQ-Mh-Kt-xwhcnnv-lutein 1 EACH tablet 1 ea PO DAILY Label Comments: vitamin Eliquis 5 mg 5 mg BID Primary Care Provider: Rod Ochoa Chi Referrals: Rod Ochoa Chi, MD [Primary Care Provider] - 3-5 Days if not improving Activity Restrictions/Additional Instructions: Ice to your hip. Tylenol for any pain. Follow-up if you are having more pain or trouble walking. Disposition Disposition: Home, Self Care
[2022-02-21 12:55] VITALS: BP 138/67; PULSE 71; RESP 15; O2SAT 98
== END 2022-02-21 12:59 | disposition home or self-care (01) ==
PROVIDERS: Emergency Provider Emergency Medicine; PCP Family Medicine Geriatric Medicine; Visit Provider Emergency Medicine
DX: S70.02XA Contusion of left hip, initial encounter (principal); I48.19 Other persistent atrial fibrillation; I10 Essential (primary) hypertension; E03.9 Hypothyroidism, unspecified; Z79.01 Long term (current) use of anticoagulants; Z79.899 Other long term (current) drug therapy; Z86.73 Personal history of transient ischemic attack (TIA), and cerebral infarction without residual deficits; Z95.0 Presence of cardiac pacemaker; W19.XXXA Unspecified fall, initial encounter
CPT/HCPCS: 73502; 99284

== ENCOUNTER → 2022-03-02 | Outpatient (CLI) | payer MEDICARE, OTHER, SELFPAY ==
[2022-03-02 14:48] LABS: Absolute Lymphocyte Count 1.15 X10^3/uL (0.83-4.51); Absolute Neutrophil Count 3.9 X10^3/uL (2.0-7.7); Basophil# 0.06 X10^3/uL; Eosinophil# 0.18 X10^3/uL; Eosinophils% 3.1 % (0-5); Hematocrit 40.8 % (37-47); Hemoglobin 13.4 g/dL (12.0-15.0); Lymphocyte # 1.15 X10^3/ul (0.83-4.51); Lymphocyte % 19.7 % (19-41); Mean Corp Hgb Conc 32.8 g/dL (32-36); Mean Corpuscular Hgb 31.4 pg (27.0-32.0); Mean Corpuscular Volume 95.6 fL (81-99); Mean Platelet Vol. 10.3 fl (6.2-12.0); Monocyte# 0.54 X10^3/uL; Monocyte% 9.2 % (0-10); NRBC Flagged by Analyzer 0 % (0-5); Neutrophil # 3.88 X10^3/uL (2.7-7.7); Neutrophil % 66.5 % (47-70); Platelet Count 188 K/mm3 (150-450); RBC Distribution Width CV 13.7 % (11.6-14.6); RBC Distribution Width SD 48.3 fl (35.1-43.9); Red Blood Count 4.27 M/mm3 (4.2-5.4); White Blood Count 5.8 K/mm3 (4.4-11.0)
[2022-03-02 14:58] LABS: Vitamin D,25 Hydroxy 35.6 ng/mL
[2022-03-02 15:05] LABS: ALB/GLOB Ratio 0.9 RATIO (0.9-2.4); AST(SGOT) 19 U/L (15-37); Alanine Aminotransfer ALT/SGPT 15 U/L (13-56); Albumin, Serum 3.6 g/dL (3.2-5.0); Alkaline Phosphatase 69 U/L (45-117); Anion Gap 5 (5-15); BUN 23 mg/dL (7-18); BUN/Creat Ratio 25.9 RATIO (10-20); Calcium,Total 9.4 mg/dL (8.5-10.1); Chloride 106 mmol/L (98-107); Creatinine, Serum 0.89 mg/dL (0.55-1.02); EST Glomerular Filtration Rate 64 mL/min (>60); Est Glom Filt Rate - Afr Amer 78 mL/min (>60); Globulin 3.9 g/dL (2.2-4.2); Glucose 99 mg/dL (74-106); Potassium 4.2 mmol/L (3.5-5.1); Protein, Total 7.5 g/dL (6.4-8.2); Sodium Level 141 mmol/L (136-145)
== END | disposition home or self-care (01) ==
PROVIDERS: PCP Family Medicine Geriatric Medicine; Visit Provider Family Medicine Geriatric Medicine
DX: E55.9 Vitamin D deficiency, unspecified (principal); I10 Essential (primary) hypertension
CPT/HCPCS: 36415; 80053; 82306; 84443; 85025

== ENCOUNTER 2022-03-09 12:03 | Emergency (ER) | payer MEDICARE, OTHER, SELFPAY ==
[2022-03-09 12:04] VITALS: BP 169/59; PULSE 71; RESP 16; TEMP 36.8; O2SAT 97; BMI 24.5
--- NOTE | 2022-03-09 12:29 | RAD_ITS ---
STUDY: X-RAY - RIGHT WRIST REASON FOR EXAM: Female, 86 years old. Fall TECHNIQUE: 3 view(s) of the wrist were obtained. COMPARISON: Comparison is made with prior study dated 08/16/2013. FINDINGS: There is demineralization of the radius and ulna. There is degenerative arthrosis of the radiocarpal articulation. Normal distal radioulnar articulation. Normal carpal bones. Normal carpal articulations. There is degenerative arthrosis of the carpometacarpal articulation of the thumb. Normal second through fifth carpometacarpal articulations. Normal visualized metacarpal bones. Vascular calcification. Calcification of the triangular fibrocartilage. RAD/Wrist min 3 Views IMPRESSION: Degenerative changes. No acute abnormality is seen. Electronically Signed: Reji Ramírez MD at 13:16 EDT ,
--- NOTE | 2022-03-09 12:29 | CT_ITS ---
STUDY: CT BRAIN WITHOUT CONTRAST REASON FOR EXAM: Female, 86 years old. Fall RADIATION DOSAGE (If Supplied By Facility): CTDIvol = ( 44.99 ) mGy, DLP = ( 829.85 ) mGycm TECHNIQUE: Transaxial CT imaging of the brain was performed without administration of intravenous contrast material. Individualized dose optimization techniques were used for this CT. COMPARISON: Comparison is made with prior study dated 07/10/2021. FINDINGS: Normal soft tissue structures. Normal calvarium. There is moderate cerebral atrophy with widening of the extra-axial spaces and ventricular dilatation. There are areas of decreased attenuation within the white matter tracts of the supratentorial brain, consistent with microvascular disease changes. Normal basal ganglia and thalami. Normal brainstem. There is mild cerebellar atrophy. There is no intracranial hemorrhage. There are no findings of an acute ischemic infarction. Atherosclerotic plaque formation of the cavernous portions of the internal carotid arteries bilaterally. Partial opacification of the right maxillary sinus. Mucosal thickening at the base of the left maxillary sinus. CT/Brain/Head without Contrast IMPRESSION: Chronic involutional changes of the brain. Partial opacification of the right maxillary sinus. Electronically Signed: Reji Ramírez MD at 13:12 EDT ,
--- NOTE | 2022-03-09 14:03 | EDS_ITS ---
HPI HPI - Fall History of Present Illness Chief Complaint: Fall Informant: patient Occured/Mechanism Occurred: Today Pain/Injury Pain Location: head and upper extremity Current Severity: Mild Maximum Severity: Mild Narrative Narrative: Patient presents after fall at home. She states she fell on the last 2 steps this morning coming downstairs. She struck her right anabaptism as well as her right wrist. She has skin tears noted to both areas. She is currently on Eliquis. She denies headache or vision change. She denies neck pain. [facility] Medical History Acquired hypothyroidism Anemia Arthritis Asthma Cardiology follow-up encounter Complete heart block Delayed wound healing Edema leg Essential (primary) hypertension History of GI bleed History of IBS History of stress test Hyperlipidemia Malnutrition Microscopic colitis Mild intermittent asthma Non-smoker Nonrheumatic mitral valve insufficiency Persistent atrial fibrillation Personal history of colonic polyps Rheumatoid arthritis Sick sinus syndrome Stroke/cerebrovascular accident Thyroid storm Ulcer of left lower extremity with fat layer exposed Ulcer of right lower extremity with fat layer exposed Venous insufficiency 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 Wears glasses Home Medications lxlizsyf-sxr-IP 0.4 mg-calcium 162 mg-iron 18 gy-nvatxpe-xgoksl tablet 1 ea PO DAILY supplement 06/03/19 [History Last Taken 04/25/21 08:31] escitalopram oxalate 5 mg tablet 5 mg PO DAILY anxiety 01/23/20 [History Last Taken 04/25/21 08:32] levothyroxine 50 mcg tablet 50 mcg PO DAILY 08/17/21 [History Last Taken Unknown] linaclotide 72 mcg capsule (Linzess) 72 mcg PO DAILY 08/17/21 [History Last Taken Unknown] metoprolol tartrate 25 mg tablet 25 mg PO BID BP #180 tabs 08/17/21 [Rx Last Taken Unknown] Eliquis 5 mg BID 09/16/21 [History Last Taken Unknown] Allergy/AdvReac Type Severity Reaction Status Date / Time latex AdvReac Itching Verified 03/09/22 12:05 sulfamethoxazole AdvReac Nausea Verified 03/09/22 12:05 [From Bactrim] trimethoprim [From Bactrim] AdvReac Nausea Verified 03/09/22 12:05 Family History Father CAD (coronary artery disease) Brother Cancer Leukemia Brother Epilepsy Surgical History H/O thyroidectomy History of knee replacement History of permanent cardiac pacemaker placement History of right hip replacement Social History household members: none Smoking Status: Never smoker alcohol intake: never substance use type: does not use caffeine: Yes Type: tea Number of servings: 1 what type of physical activity do you participate in: other details: QCoefficient ROS ED Constitutional Constitutional ED: Denies chills or fever(s) Eyes Eyes: Denies change in vision or discharge from eye(s) ENT ENT ED: Denies discharge from eye(s), rhinorrhea or sore throat Cardiovascular Cardiovascular: Denies chest pain or palpitations Respiratory/Chest Respiratory/Chest: Denies cough or dyspnea Gastrointestinal Gastrointestinal: Denies abdominal pain, diarrhea, nausea or vomiting Genitourinary Genitourinary ED: Denies difficulty urinating or dysuria Musculoskeletal Musculoskeletal: Reports extremity pain; Denies back pain Integumentary Reports other Details: Skin tears ; Denies Abrasions or rash Neurologic Neurologic: Denies headache(s) or weakness Psychiatric Psychiatric: Denies anxiety or depression Endocrine Endocrinology: Denies polydipsia or polyuria Allergic/Immunologic Allergic/Immunologic ED: Denies lip swelling or urticaria EXAM Physical Exam Const Vital Signs: 03/09/22 12:04 03/09/22 12:16 03/09/22 14:15 Temperature 98.2 F Temperature Source Temporal Pulse Rate 71 76 Respiratory Rate 16 18 Respiratory Effort Normal Respiratory Depth Normal Respiratory Pattern Normal Blood Pressure 169/59 H Blood Pressure Mean 95 Pulse Ox 97 99 Oxygen Delivery Method Room Air Room Air Room Air Positive well nourished and well developed General Appearance ED: well developed HEENT Reports normocephalic HEENT Narrative: 2 cm skin tear to the right anabaptism. No active bleeding. No significant surrounding hematoma. Eyes PERRL and EOMs intact bilaterally Neck supple Chest Wall inspection of chest normal and palpation of chest normal Resp normal respiratory effort and clear to auscultation bilaterally Cardio regular rate and regular rhythm GI normal to inspection, nondistended, normoactive bowel sounds Palpation: soft Back/Spine no CVA tenderness Extremity Extremity Narrative: Mild tenderness of the right wrist with no deformity. 3 cm skin tear noted over the extensor surface of the right wrist. Full range of motion at the elbow and shoulder. Neuro oriented x3 and no sensory deficits noted Sensorium / Orientation: alert Motor Exam: strength 5/5 throughout Psych mental status grossly normal Skin Skin Narrative: Skin tears as noted above. MDM MDM MDM Narrative Medical decision making narrative: Patient sent for CT scan of the head as well as right wrist x-rays. Radiography Diagnostic Testing: Clinical Impression(s) from Imaging Studies Brain CT 03/09/22 12:29 IMPRESSION: Chronic involutional changes of the brain. Partial opacification of the right maxillary sinus. Electronically Signed: Reji Ramírez MD at 13:12 EDT , Wrist X-Ray 03/09/22 12:29 IMPRESSION: Degenerative changes. No acute abnormality is seen. Electronically Signed: Reji Ramírez MD at 13:16 EDT , Treatment and Re-Evaluation Narrative: Right wrist x-ray per my interpretation reveals no acute bony injury. Radiology interpretation is reviewed. Head CT shows chronic changes only. The right anabaptism skin tear is cleansed and sealed with Dermabond. The right wrist skin tear is cleansed. 3 Steri-Strips were placed and dressing applied. Wound care as discussed. Patient will be discharged to home. Discharge Plan Triage Chief Complaint: Fall ED Provider: Sneha Leary Dx/Rx/DC Orders Clinical Impression: Fall, Skin tear Instructions: ED Fall with Uncertain Cause, ED Laceration: All Closures Prescriptions: No Action escitalopram oxalate 5 mg tablet 5 mg PO DAILY Linzess 72 mcg capsule 72 mcg PO DAILY levothyroxine 50 mcg tablet 50 mcg PO DAILY metoprolol tartrate 25 mg tablet 25 mg PO BID Qty: 180 3RF ru-fps-RB-Yw-Rj-ufzgrtf-lutein 1 EACH tablet 1 ea PO DAILY Label Comments: vitamin Eliquis 5 mg 5 mg BID Primary Care Provider: Rod Ochoa Chi Referrals: Rod Ochoa Chi, MD [Primary Care Provider] - As Needed Disposition Disposition: Home, Self Care Discharge Date/Time: 03/09/22 14:16
[2022-03-09 14:15] VITALS: PULSE 76; RESP 18; O2SAT 99
== END 2022-03-09 14:16 | disposition home or self-care (01) ==
PROVIDERS: Emergency Provider Emergency Medicine; PCP Family Medicine Geriatric Medicine; Visit Provider Emergency Medicine
DX: S61.511A Laceration without foreign body of right wrist, initial encounter (principal); Z79.01 Long term (current) use of anticoagulants; W10.9XXA Fall (on) (from) unspecified stairs and steps, initial encounter; Z86.73 Personal history of transient ischemic attack (TIA), and cerebral infarction without residual deficits; Z95.0 Presence of cardiac pacemaker
CPT/HCPCS: 70450; 73110; 99282

== ENCOUNTER → 2022-05-19 | Outpatient (CLI) | payer MEDICARE, OTHER, SELFPAY ==
[2022-05-19 17:00] LABS: Absolute Lymphocyte Count 1.05 X10^3/uL (0.83-4.51); Absolute Neutrophil Count 3.4 X10^3/uL (2.0-7.7); Basophil# 0.08 X10^3/uL; Basophil% 1.4 % (0-1); Eosinophil# 0.56 X10^3/uL; Eosinophils% 9.6 % (0-5); Hematocrit 42.6 % (37-47); Hemoglobin 13.7 g/dL (12.0-15.0); Lymphocyte # 1.05 X10^3/ul (0.83-4.51); Lymphocyte % 18.1 % (19-41); Mean Corp Hgb Conc 32.2 g/dL (32-36); Mean Corpuscular Hgb 30.4 pg (27.0-32.0); Mean Corpuscular Volume 94.5 fL (81-99); Mean Platelet Vol. 11.2 fl (6.2-12.0); Monocyte# 0.69 X10^3/uL; Monocyte% 11.9 % (0-10); NRBC Flagged by Analyzer 0 % (0-5); Neutrophil % 58.5 % (47-70); Platelet Count 196 K/mm3 (150-450); RBC Distribution Width CV 12.8 % (11.6-14.6); RBC Distribution Width SD 44.1 fl (35.1-43.9); Red Blood Count 4.51 M/mm3 (4.2-5.4); White Blood Count 5.8 K/mm3 (4.4-11.0)
[2022-05-19 17:16] LABS: Vitamin D,25 Hydroxy 34.1 ng/mL
[2022-05-19 17:24] LABS: ALB/GLOB Ratio 0.8 RATIO (0.9-2.4); AST(SGOT) 18 U/L (15-37); Alanine Aminotransfer ALT/SGPT 17 U/L (13-56); Albumin, Serum 3.4 g/dL (3.2-5.0); Alkaline Phosphatase 61 U/L (45-117); Anion Gap 7 (5-15); BUN 24 mg/dL (7-18); BUN/Creat Ratio 29.9 RATIO (10-20); Calcium,Total 9.5 mg/dL (8.5-10.1); Chloride 102 mmol/L (98-107); EST Glomerular Filtration Rate 72 mL/min (>60); Est Glom Filt Rate - Afr Amer 87 mL/min (>60); Globulin 4.1 g/dL (2.2-4.2); Glucose 92 mg/dL (74-106); Potassium 4.2 mmol/L (3.5-5.1); Protein, Total 7.5 g/dL (6.4-8.2); Sodium Level 139 mmol/L (136-145); Thyroid Stim Hormone (TSH) 7.51 uIU/mL (0.358-3.74)
== END | disposition home or self-care (01) ==
LOC: POLAB3 12:54
PROVIDERS: PCP Family Medicine Geriatric Medicine; Visit Provider Family Medicine Geriatric Medicine
DX: E55.9 Vitamin D deficiency, unspecified (principal); I10 Essential (primary) hypertension
CPT/HCPCS: 36415; 80053; 82306; 84443; 85025

== ENCOUNTER 2022-07-25 22:29 | Emergency (ER) | payer MEDICARE, OTHER, SELFPAY ==
[2022-07-25 22:29] VITALS: BP 147/69; PULSE 70; RESP 16; TEMP 36.6; O2SAT 97; BMI 23.3
--- NOTE | 2022-07-25 22:38 | CT_ITS ---
INDICATION: Trauma EXAMINATION: CT CERVICAL SPINE - CT Spine Cervical W/O Contrast Injection TECHNIQUE: Helically acquired images were obtained of the cervical spine. 2D reformatted images were reviewed. A radiation dose optimization technique was used for this scan. IV Contrast dosage and agent: None. COMPARISON: August 12, 2016. FINDINGS: VERTEBRAE: No fracture or acute compression deformity. No discrete lytic or blastic abnormality. Preserved cervical lordosis. Degenerative grade I anterolisthesis C3 on C4. Normal craniocervical junction and cervicothoracic junction. DISCS and SPINAL CANAL: There is disc height loss and small posterior discussed by complex C4-C5 with spinal canal narrowing. Diffuse Facet arthropathy, most prominent at C2-C3 and C3-C4, with mild neural foraminal narrowing. No critical stenosis. NECK SOFT TISSUES: No prevertebral soft tissue swelling. There is no cervical adenopathy. Left chest cardiac pacer. Mild right carotid atherosclerosis. LUNG APICES: Clear. CT/Spine Cervical without Contras IMPRESSION: No evidence of acute cervical spinal fracture. Spondylosis as above. Electronically Signed: Jomar Ellsworth MD at 23:29 EST Reading Location ID and State: [facility] / [place] Tel , Service support ,
--- NOTE | 2022-07-25 22:38 | CT_ITS ---
INDICATION: Trauma EXAMINATION: CT BRAIN - CT Head or Brain W/O Contrast Injection TECHNIQUE: Multiple axial images were obtained of the head without intravenous contrast. A radiation dose optimization technique was used for this scan. IV Contrast dosage and agent: None. COMPARISON: [March 09, 2022 FINDINGS: BRAIN PARENCHYMA: No intra- or extra-axial hemorrhage. No evidence of acute infarct. No intracranial mass or mass effect. Mild patchy periventricular and subcortical white matter hypodense chronic small vessel white matter ischemic change not significantly changed from prior exam. There is preservation of the harvey/white matter interface. Posterior fossa structures are unremarkable. Carotid and vertebral atherosclerosis. CSF SPACES: Cerebral volume appropriate for age. No hydrocephalus. Basal cisterns are patent. CALVARIUM, SKULL BASE, PARANASAL SINUSES AND MASTOID AIR CELLS: No acute osseous finding. Scattered paransal sinus mucoperisteal thickening, prominent within the right maxillary sinus, mildly increased prior exam, with chronic sinus wall thickening. Bilateral sinus surgical change.. Mastoid air cells are clear. ORBITS: Both globes, extraocular muscles, optic nerves and retrobulbar fat appear unremarkable. ASPECTS Score for Acute Strokes: 10 CT/Brain/Head without Contrast IMPRESSION: No CT evidence of acute intracranial hemorrhage or injury. Senescent changes as above. Acute and chronic sinus disease with prior surgical change. Electronically Signed: Jomar Ellsworth MD at 23:23 EST Reading Location ID and State: [facility] / [place] Tel , Service support ,
--- NOTE | 2022-07-25 22:39 | ED.VIS.FALL ---
HPI HPI - Fall History of Present Illness Chief Complaint: Fall Informant: patient Narrative Narrative: Patient presents after a fall at home. She has soreness to the base of her head. She states after the fall she feels just a little bit dizzy. She states she has a small residual of this feeling but it is improving. No real headache with this. No numbness tingling or weakness. Patient states she was facing her couch. She went to take a step but just lost her footing. She has had a history of vertigo and prior small strokes and occasionally has a little dizziness or discoordination. But she did not feel out of normal. She states she just stepped back several times causing her to fall and hit the back of her head and neck on a desk that was behind her. There was no loss of consciousness. No nausea vomiting. She states she never felt funny heartbeats. She does have a history of atrial fibrillation. But she checks her heart rate frequently. After the fall she checked her heart rate and it was normal. Her only symptom now is very mild nonspecific dizziness and soreness at the base of the neck. She is on Eliquis for the history of atrial fibrillation. [facility] Medical History Acquired hypothyroidism Anemia Arthritis Asthma Cardiology follow-up encounter Complete heart block Delayed wound healing Edema leg Essential (primary) hypertension History of GI bleed History of IBS History of stress test Hyperlipidemia Malnutrition Microscopic colitis Mild intermittent asthma Non-smoker Nonrheumatic mitral valve insufficiency Persistent atrial fibrillation Personal history of colonic polyps Rheumatoid arthritis Sick sinus syndrome Stroke/cerebrovascular accident Thyroid storm Ulcer of left lower extremity with fat layer exposed Ulcer of right lower extremity with fat layer exposed Venous insufficiency 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 Wears glasses Home Medications umqbipac-ejh-NH 0.4 mg-calcium 162 mg-iron 18 dv-uguzpgj-dygekz tablet 1 ea PO DAILY supplement 06/03/19 [History Last Taken 04/25/21 08:31] escitalopram oxalate 5 mg tablet 5 mg PO DAILY anxiety 01/23/20 [History Last Taken 04/25/21 08:32] levothyroxine 50 mcg tablet 50 mcg PO DAILY 08/17/21 [History Last Taken Unknown] linaclotide 72 mcg capsule (Linzess) 72 mcg PO DAILY 08/17/21 [History Last Taken Unknown] Eliquis 5 mg BID 09/16/21 [History Last Taken Unknown] metoprolol tartrate 25 mg tablet 25 mg PO BID BP #180 tabs 07/05/22 [Rx Last Taken Unknown] Allergy/AdvReac Type Severity Reaction Status Date / Time latex AdvReac Itching Verified 07/25/22 22:33 sulfamethoxazole AdvReac Nausea Verified 07/25/22 22:33 [From Bactrim] trimethoprim [From Bactrim] AdvReac Nausea Verified 07/25/22 22:33 Family History Father CAD (coronary artery disease) Brother Cancer Leukemia Brother Epilepsy Surgical History H/O thyroidectomy History of knee replacement History of permanent cardiac pacemaker placement History of right hip replacement Social History household members: none Smoking Status: Never smoker alcohol intake: never substance use type: does not use caffeine: Yes Type: tea Number of servings: 1 what type of physical activity do you participate in: other details: [employer]back[employer] ROS ED Constitutional Constitutional ED: Denies chills, fever(s) or subjective Eyes Eyes: Denies change in vision ENT ENT ED: Reports other Details: Soreness at the base of the neck but more on the right. ; Denies ear pain, rhinorrhea or sore throat Cardiovascular Cardiovascular: Denies chest pain Respiratory/Chest Respiratory/Chest: Denies cough or dyspnea Gastrointestinal Gastrointestinal: Denies nausea or vomiting Genitourinary Genitourinary ED: Denies dysuria Musculoskeletal Musculoskeletal: Reports neck pain; Denies back pain Integumentary Denies Abrasions Neurologic Neurologic: Denies headache(s), paresthesias or weakness Endocrine Endocrinology: Denies polydipsia or polyuria Hematologic/Lymphatic Hematologic/Lymphatic: Reports easy bleeding and easy bruising; Denies lymphadenopathy Allergic/Immunologic Allergic/Immunologic ED: Denies urticaria EXAM Physical Exam Const Vital Signs: 07/25/22 22:29 07/25/22 22:36 07/26/22 00:29 Temperature 97.9 F Temperature Source Temporal Pulse Rate 70 70 Respiratory Rate 16 15 Respiratory Effort Normal Blood Pressure 147/69 H 139/66 H Blood Pressure Mean 95 90 Pulse Ox 97 98 Oxygen Delivery Method Room Air Room Air Positive well nourished and well developed General Appearance ED: well developed HEENT Reports normocephalic HEENT Narrative: At this time I am not seeing any bruising or laceration on her scalp. She states she thinks she hit mostly her neck. atraumatic; Negative for hematoma Eyes EOMs intact bilaterally General Eye ED: Negative for scleral icterus Neck Neck Narrative: There is some mild tenderness down toward C6 and C7 area little bit more to the right. No visible contusion or bruising at this time has developed. Chest Wall Chest Narrative: Prior pacemaker Resp normal respiratory effort Auscultation: Negative for rales, rhonchi or wheezes Cardio regular rate and regular rhythm GI non-tender and non-distended GI Narrative: No mass felt. No bruit. Back/Spine no CVA tenderness Neuro oriented x3, no focal motor deficits and no sensory deficits noted Neuro Narrative: No real vertigo. Patient can look her eyes left and right without problems. She states her mild dizzy feelings are just residual now and very mild. They are improving Psych mental status grossly normal Skin Skin Narrative: No visible contusions or abrasions have yet developed. MDM MDM MDM Narrative Medical decision making narrative: Scans are normal. Patient got up she walked to the bathroom. She states she feels fine. She wants to go home. But her closest son lives in [place]. She does not want to call her neighbor at 1 in the morning. We will see if we can get her a ride home. If not we may need to wait till the morning till we can get a ride for her. She was okay with that plan. She has no complaints at this time. Radiography Diagnostic Testing: Clinical Impression(s) from Imaging Studies Brain CT 07/25/22 22:38 IMPRESSION: No CT evidence of acute intracranial hemorrhage or injury. Senescent changes as above. Acute and chronic sinus disease with prior surgical change. Electronically Signed: Jomar Ellsworth MD at 23:23 EST Reading Location ID and State: [facility] / [place] Tel , Service support , Cervical Spine CT 07/25/22 22:38 IMPRESSION: No evidence of acute cervical spinal fracture. Spondylosis as above. Electronically Signed: Jomar Ellsworth MD at 23:29 EST , CT scan of the head and neck show chronic but no acute processes. Discharge Plan Triage Chief Complaint: Fall ED Provider: Zion Perrin Dx/Rx/DC Orders Clinical Impression: Fall at home, Closed head injury, Contusion of neck, Coagulopathy Instructions: ED Head Injury (Adult), ED Fall Prevention Prescriptions: No Action escitalopram oxalate 5 mg tablet 5 mg PO DAILY Linzess 72 mcg capsule 72 mcg PO DAILY levothyroxine 50 mcg tablet 50 mcg PO DAILY [id number]-uay-ML-Nm-Ki-xvfzshr-lutein 1 EACH tablet 1 ea PO DAILY Label Comments: vitamin Eliquis 5 mg 5 mg BID metoprolol tartrate 25 mg tablet 25 mg PO BID Qty: 180 3RF Primary Care Provider: Rod Ochoa Chi Referrals: Rod Ochoa Chi, MD [Primary Care Provider] - 3-5 Days if not improving Disposition Disposition: Home, Self Care
[2022-07-26 00:29] VITALS: BP 139/66; PULSE 70; RESP 15; O2SAT 98
[2022-07-26 01:08] VITALS: BP 145/60; PULSE 80; RESP 18
== END 2022-07-26 01:08 | disposition home or self-care (01) ==
PROVIDERS: Emergency Provider Emergency Medicine; PCP Family Medicine Geriatric Medicine; Visit Provider Emergency Medicine
DX: S09.90XA Unspecified injury of head, initial encounter (principal); S10.93XA Contusion of unspecified part of neck, initial encounter; R79.1 Abnormal coagulation profile; I10 Essential (primary) hypertension; Z86.73 Personal history of transient ischemic attack (TIA), and cerebral infarction without residual deficits; Z95.0 Presence of cardiac pacemaker; Z79.01 Long term (current) use of anticoagulants; Z79.899 Other long term (current) drug therapy; W19.XXXA Unspecified fall, initial encounter
CPT/HCPCS: 70450; 72125; 99284

== ENCOUNTER 2022-08-02 10:19 | Emergency (ER) | payer MEDICARE, OTHER, SELFPAY ==
[2022-08-02 10:20] VITALS: BP 159/79; PULSE 70; RESP 16; TEMP 36.4; O2SAT 97; BMI 23.5
--- NOTE | 2022-08-02 10:32 | CT_ITS ---
STUDY: CT BRAIN WITHOUT CONTRAST REASON FOR EXAM: Female, 87 years old. Unsteadiness, prior stroke. COPD. RADIATION DOSAGE (If Supplied By Facility): CTDIvol = ( 44.99 ) mGy, DLP = ( 779.24 ) mGycm TECHNIQUE: Transaxial CT imaging of the brain was performed without administration of intravenous contrast material. Individualized dose optimization techniques were used for this CT. COMPARISON: Comparison is made with prior study dated 07/25/2022. FINDINGS: Normal soft tissue structures. Normal calvarium. There is moderate cerebral atrophy with widening of the extra-axial spaces and ventricular dilatation. There are areas of decreased attenuation within the white matter tracts of the supratentorial brain, consistent with microvascular disease changes. Stable small bilateral lacunar infarcts of the basal ganglia. Normal brainstem. There is mild cerebellar atrophy. There is no intracranial hemorrhage. There are no findings of an acute ischemic infarction. Atherosclerotic calcification of the cavernous portions of the internal carotid arteries. Opacification of the right maxillary sinus. Mucosal thickening of the right frontal sinus and right ethmoid sinus. CT/Brain/Head without Contrast IMPRESSION: Chronic involutional changes of the brain. Stable bilateral lacunar infarcts of the basal ganglia. Electronically Signed: Reji Ramírez MD at 11:26 [facility] ,
--- NOTE | 2022-08-02 10:32 | EKG12_ITS ---
Test Reason : Blood Pressure : / mmHG Vent. Rate : 070 BPM Atrial Rate : 070 BPM P-R Int : 000 ms QRS Dur : 160 ms QT Int : 456 ms P-R-T Axes : 000 -84 098 degrees QTc Int : 492 ms Ventricular-paced rhythm Abnormal ECG Confirmed by SARAH RUCKER, SOULEYMANE ([id number]), graphic editor BRANDON POLLACK ([id number]) on 08/03/2022 9:17:06 AM Referred By: EDDA Confirmed By:SOULEYMANE SMITH MD
--- NOTE | 2022-08-02 10:35 | EX.ED.DYSGE1 ---
HPI History of Present Illness Chief Complaint: Dizziness Informant: patient and friend Narrative Narrative: Patient presents with vertigo. She has had this problem many times over the years. She has had prior stroke with some right-sided residual but that continues to improve. She is on Eliquis. She was seen recently for a fall. She states now for the past week she has had more vertigo to stay still she feels perfect. She has no trouble reading or watching TV or doing anything she needs to do. However, if she turns or moves or bends over she gets a spinning sensation. No nausea vomiting. No headache. No numbness tingling weakness. This is not presyncopal. It is vertigo with sense of motion. She has had this many times. While we are in the room, a friend comes in and immediately asks is it vertigo again? She had made an appointment to see her primary physician today for this but had a bad episode this morning trying to get out of bed. She states she has not called or seen anyone because she does not want to go to a rehab facility or custodial again. She does live alone at home now and takes care of all the issues there. [facility] Medical History Acquired hypothyroidism Anemia Arthritis Asthma Cardiology follow-up encounter Complete heart block Delayed wound healing Edema leg Essential (primary) hypertension History of GI bleed History of IBS History of stress test Hyperlipidemia Malnutrition Microscopic colitis Mild intermittent asthma Non-smoker Nonrheumatic mitral valve insufficiency Persistent atrial fibrillation Personal history of colonic polyps Rheumatoid arthritis Sick sinus syndrome Stroke/cerebrovascular accident Thyroid storm Ulcer of left lower extremity with fat layer exposed Ulcer of right lower extremity with fat layer exposed Venous insufficiency 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 Wears glasses Home Medications vxrzvjpi-qas-TP 0.4 mg-calcium 162 mg-iron 18 ew-golbxpr-ixazwr tablet 1 ea PO DAILY supplement 06/03/19 [History Last Taken 04/25/21 08:31] escitalopram oxalate 5 mg tablet 5 mg PO DAILY anxiety 01/23/20 [History Last Taken 04/25/21 08:32] linaclotide 72 mcg capsule (Linzess) 72 mcg PO DAILY 08/17/21 [History Last Taken Unknown] Eliquis 5 mg BID 09/16/21 [History Last Taken Unknown] metoprolol tartrate 25 mg tablet 25 mg PO BID BP #180 tabs 07/05/22 [Rx Last Taken Unknown] levothyroxine 112 mcg tablet 112 mcg PO DAILY 07/28/22 [History Last Taken Unknown] meclizine 25 mg tablet 25 mg PO BID PRN dizziness #14 tabs 08/02/22 [Rx Last Taken Unknown] Allergy/AdvReac Type Severity Reaction Status Date / Time latex AdvReac Itching Verified 08/02/22 10:26 sulfamethoxazole AdvReac Nausea Verified 08/02/22 10:26 [From Bactrim] trimethoprim [From Bactrim] AdvReac Nausea Verified 08/02/22 10:26 Family History Father CAD (coronary artery disease) Brother Cancer Leukemia Brother Epilepsy Surgical History H/O thyroidectomy History of knee replacement History of permanent cardiac pacemaker placement History of right hip replacement Social History household members: none Smoking Status: Never smoker alcohol intake: never substance use type: does not use caffeine: Yes Type: tea Number of servings: 1 what type of physical activity do you participate in: other details: [employer], [employer] ED Constitutional Constitutional ED: Denies chills, fever(s) or sweats Eyes Eyes: Denies blurry vision, change in vision or diplopia ENT ENT ED: Denies rhinorrhea or sore throat Cardiovascular Cardiovascular: Denies chest pain, palpitations or racing heartbeat Respiratory/Chest Respiratory/Chest: Denies cough or dyspnea Gastrointestinal Gastrointestinal: Denies nausea or vomiting Genitourinary Genitourinary ED: Denies dysuria Musculoskeletal Musculoskeletal: Denies arthralgias or myalgias Integumentary Denies rash Neurologic Neurologic: Reports other Details: See history of present illness. ; Denies headache(s), paresthesias or weakness Endocrine Endocrinology: Denies polydipsia or polyuria Hematologic/Lymphatic Hematologic/Lymphatic: Reports easy bleeding and easy bruising Allergic/Immunologic Allergic/Immunologic ED: Denies urticaria EXAM Physical Exam Const Vital Signs: 08/02/22 10:20 08/02/22 10:26 08/02/22 12:34 Temperature 97.5 F L Temperature Source Oral Pulse Rate 70 72 Respiratory Rate 16 14 Respiratory Effort Normal Respiratory Pattern Normal Blood Pressure 159/79 H 154/77 H Blood Pressure Mean 105 102 Pulse Ox 97 98 Oxygen Delivery Method Room Air Room Air 08/02/22 14:05 Temperature Temperature Source Pulse Rate 70 Respiratory Rate 18 Respiratory Effort Respiratory Pattern Blood Pressure Blood Pressure Mean Pulse Ox 95 Oxygen Delivery Method Room Air Positive well nourished and well developed General Appearance ED: well developed; Negative for pallor HEENT Reports moist mucous membranes Eyes EOMs intact bilaterally General Eye ED: Negative for scleral icterus Neck no lymphadenopathy and supple Chest Wall inspection of chest normal Resp normal respiratory effort and clear to auscultation bilaterally Cardio regular rate and regular rhythm GI normal to inspection, nondistended, normoactive bowel sounds, non-tender and non-distended Palpation: soft Back/Spine no CVA tenderness Extremity normal to inspection General Extremety ED: Negative for edema or tenderness General Extremity: Negative for edema Neuro oriented x3 Neuro Narrative: Patient is ANO x3. Her speech is normal. She has normal dptdcq-kt-jjee and coordination. But she does get vertigo and a little bit of mild horizontal nystagmus if she turns this to a significant degree to either side. Psych mental status grossly normal Skin no rashes or lesions noted General Skin Exam: elasticity normal; Negative for jaundice or pallor MDM MDM MDM Narrative Medical decision making narrative: Patient CT of the head is showing no acute process. It does have chronic changes which were expected. CBC showed minimal anemia at 11.8. Platelets and white count are normal. Electrolytes show no marked abnormalities. Patient was feeling much better with the meclizine. She states she was not dizzy turning right and left. We got her up and walked. She felt normal and she walked very steadily. She does have help at home also. She wants to go home. She has had vertigo many times. She feels better now. Person who helps her at home is here and is okay with that is a plan to because she feels the patient is acting normally at this time. Lab Data Attestation: I reviewed the patient's lab results. Labs: Laboratory Results - last 24 hr 08/02/22 08/02/22 10:40 10:40 WBC 6.4 RBC 4.07 L Hgb 11.8 L Hct 37.8 MCV 92.9 MCH 29.0 MCHC 31.2 L RDW Std Deviation 46.9 H RDW Coeff of Radha 13.9 Plt Count 171 MPV 10.7 Immature Gran % (Auto) 0.500 Neut % (Auto) 67.2 Lymph % (Auto) 15.9 L Ransom % (Auto) 10.5 H Eos % (Auto) 5.0 Baso % (Auto) 0.9 Absolute Neuts (auto) 4.3 Absolute Lymphs (auto) 1.02 Nucleated RBC % 0 Sodium 142 Potassium 3.8 Chloride 109 H Carbon Dioxide 31.0 Anion Gap 2 L BUN 23 H Creatinine 0.79 Estim Creat Clear Calc 40.74 Est GFR (MDRD) Af Amer 89 Est GFR (MDRD) Non-Af 74 BUN/Creatinine Ratio 29.2 H Glucose 99 Calcium 9.1 Radiography Diagnostic Testing: Clinical Impression(s) from Imaging Studies Brain CT 08/02/22 10:32 IMPRESSION: Chronic involutional changes of the brain. Stable bilateral lacunar infarcts of the basal ganglia. Electronically Signed: Reji Ramírez MD at 11:26 EST , Chronic but no acute changes Discharge Plan Triage Chief Complaint: Dizziness ED Provider: Zion Perrin Dx/Rx/DC Orders Clinical Impression: Vertigo Instructions: ED BPV Vertigo Prescriptions: New meclizine 25 mg tablet 25 mg PO BID PRN (Reason: dizziness) Qty: 14 0RF No Action escitalopram oxalate 5 mg tablet 5 mg PO DAILY Linzess 72 mcg capsule 72 mcg PO DAILY [id number]-KN-Kl-Gn-cdxxzwz-lutein 1 EACH tablet 1 ea PO DAILY Label Comments: vitamin Eliquis 5 mg 5 mg BID levothyroxine 112 mcg tablet 112 mcg PO DAILY Label Comments: take 1 tablet by mouth once daily metoprolol tartrate 25 mg tablet 25 mg PO BID Qty: 180 3RF Primary Care Provider: Rod Ochoa Chi Referrals: Rod Ochoa Chi, MD [Primary Care Provider] - 3-5 Days if not improving Disposition Disposition: Home, Self Care
[2022-08-02] MEDS: Meclizine HCl 25 MG Tablet PO (10:50)
[2022-08-02 10:52] LABS: Absolute Lymphocyte Count 1.02 X10^3/uL (0.83-4.51); Absolute Neutrophil Count 4.3 X10^3/uL (2.0-7.7); Basophil# 0.06 X10^3/uL; Basophil% 0.9 % (0-1); Eosinophil# 0.32 X10^3/uL; Hematocrit 37.8 % (37-47); Hemoglobin 11.8 g/dL (12.0-15.0); Lymphocyte # 1.02 X10^3/ul (0.83-4.51); Lymphocyte % 15.9 % (19-41); Mean Corp Hgb Conc 31.2 g/dL (32-36); Mean Corpuscular Volume 92.9 fL (81-99); Mean Platelet Vol. 10.7 fl (6.2-12.0); Monocyte# 0.67 X10^3/uL; Monocyte% 10.5 % (0-10); NRBC Flagged by Analyzer 0 % (0-5); Neutrophil % 67.2 % (47-70); Platelet Count 171 K/mm3 (150-450); RBC Distribution Width CV 13.9 % (11.6-14.6); RBC Distribution Width SD 46.9 fl (35.1-43.9); Red Blood Count 4.07 M/mm3 (4.2-5.4); White Blood Count 6.4 K/mm3 (4.4-11.0)
[2022-08-02 11:06] LABS: Anion Gap 2 (5-15); BUN 23 mg/dL (7-18); BUN/Creat Ratio 29.2 RATIO (10-20); Calcium,Total 9.1 mg/dL (8.5-10.1); Chloride 109 mmol/L (98-107); Creatinine, Serum 0.79 mg/dL (0.55-1.02); EST Glomerular Filtration Rate 74 mL/min (>60); Est Glom Filt Rate - Afr Amer 89 mL/min (>60); Estimated Creatinine Clearance 40.74 ml/min; Glucose 99 mg/dL (74-106); Potassium 3.8 mmol/L (3.5-5.1); Sodium Level 142 mmol/L (136-145)
[2022-08-02 12:34] VITALS: BP 154/77; PULSE 72; RESP 14; O2SAT 98
[2022-08-02 14:05] VITALS: PULSE 70; RESP 18; O2SAT 95
== END 2022-08-02 15:06 | disposition home or self-care (01) ==
PROVIDERS: Emergency Provider Emergency Medicine; PCP Family Medicine Geriatric Medicine; Visit Provider Emergency Medicine
DX: R42 Dizziness and giddiness (principal); I48.19 Other persistent atrial fibrillation; I10 Essential (primary) hypertension; Z95.0 Presence of cardiac pacemaker; Z79.01 Long term (current) use of anticoagulants; Z79.899 Other long term (current) drug therapy
CPT/HCPCS: 70450; 80048; 85025; 93005; 96360; 96361; 99285; J7030; A4216

== ENCOUNTER 2022-08-14 12:47 | Observation (INO) | payer MEDICARE, OTHER, SELFPAY ==
[2022-08-14 12:48] VITALS: BP 147/71; PULSE 75; RESP 16; TEMP 35.9; O2SAT 99; BMI 24.5
[2022-08-14] MEDS: Meclizine 12.5 MG Tablet PO (13:20)
--- NOTE | 2022-08-14 13:55 | EX.ED.DYSGE1 ---
HPI History of Present Illness Chief Complaint: Dizziness Informant: patient Narrative Narrative: Patient had an episode of vertigo when she got up from a nap. This patient has a long history of vertigo. I have seen her recently for this. She states she has been taking the meclizine at night and that seems to help her. She states her biggest problems are when she gets up after laying down for a while. Therefore taking this at night so she does not fall going to the bathroom has been of benefit. She slept later today. When she got up she felt very vertiginous. She did not think she could safely get to the meclizine. However, now she feels fine. She states normally her dizziness last for about half an hour and it is totally gone. She has no headache. She has not fallen. She feels perfectly fine at this time. [facility] Medical History Acquired hypothyroidism Anemia Arthritis Asthma Cardiology follow-up encounter Complete heart block Delayed wound healing Edema leg Essential (primary) hypertension History of GI bleed History of IBS History of stress test Hyperlipidemia Malnutrition Microscopic colitis Mild intermittent asthma Non-smoker Nonrheumatic mitral valve insufficiency Persistent atrial fibrillation Personal history of colonic polyps Rheumatoid arthritis Sick sinus syndrome Stroke/cerebrovascular accident Thyroid storm Ulcer of left lower extremity with fat layer exposed Ulcer of right lower extremity with fat layer exposed Venous insufficiency 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 Wears glasses Home Medications [id number]-ewg-VM 0.4 mg-calcium 162 mg-iron 18 nv-lbnswmj-ohlqvu tablet 1 ea PO DAILY supplement 06/03/19 [History Last Taken 04/25/21 08:31] escitalopram oxalate 5 mg tablet 5 mg PO DAILY anxiety 01/23/20 [History Last Taken 04/25/21 08:32] linaclotide 72 mcg capsule (Linzess) 72 mcg PO DAILY 08/17/21 [History Last Taken Unknown] Eliquis 5 mg BID 09/16/21 [History Last Taken Unknown] metoprolol tartrate 25 mg tablet 25 mg PO BID BP #180 tabs 07/05/22 [Rx Last Taken Unknown] levothyroxine 112 mcg tablet 112 mcg PO DAILY 07/28/22 [History Last Taken Unknown] meclizine 25 mg tablet 25 mg PO BID PRN dizziness #14 tabs 08/02/22 [Rx Last Taken Unknown] Allergy/AdvReac Type Severity Reaction Status Date / Time latex AdvReac Itching Verified 08/14/22 12:50 sulfamethoxazole AdvReac Nausea Verified 08/14/22 12:50 [From Bactrim] trimethoprim [From Bactrim] AdvReac Nausea Verified 08/14/22 12:50 Family History Father CAD (coronary artery disease) Brother Cancer Leukemia Brother Epilepsy Surgical History H/O thyroidectomy History of knee replacement History of permanent cardiac pacemaker placement History of right hip replacement Social History household members: none Smoking Status: Never smoker alcohol intake: never substance use type: does not use caffeine: Yes Type: tea Number of servings: 1 what type of physical activity do you participate in: other details: [place] ROS ED Constitutional Constitutional ED: Denies fever(s) Eyes Eyes: Denies blurry vision, change in vision or diplopia ENT ENT ED: Denies rhinorrhea Cardiovascular Cardiovascular: Denies chest pain or palpitations Respiratory/Chest Respiratory/Chest: Denies cough Gastrointestinal Gastrointestinal: Denies nausea or vomiting Genitourinary Genitourinary ED: Denies hematuria Musculoskeletal Musculoskeletal: Denies arthralgias or myalgias Integumentary Denies rash Neurologic Neurologic: Reports other Details: The history of present illness. Currently, no symptoms including no vertigo or dizziness at all. ; Denies headache(s), paresthesias or weakness Psychiatric Psychiatric: Reports anxiety Endocrine Endocrinology: Denies polydipsia or polyuria Hematologic/Lymphatic Hematologic/Lymphatic: Reports easy bleeding and easy bruising Allergic/Immunologic Allergic/Immunologic ED: Denies urticaria EXAM Physical Exam Const Vital Signs: 08/14/22 12:48 08/14/22 12:51 08/14/22 15:12 Temperature 96.7 F L Temperature Source Temporal Pulse Rate 75 72 Respiratory Rate 16 15 Respiratory Effort Normal Non-Labored Respiratory Pattern Normal Blood Pressure 147/71 H 145/77 H Blood Pressure Mean 96 99 Pulse Ox 99 97 Oxygen Delivery Method Nasal Cannula Room Air Positive well nourished and well developed General Appearance ED: well developed and NAD HEENT Reports moist mucous membranes Negative for trauma or tenderness Eyes EOMs intact bilaterally Neck supple Chest Wall inspection of chest normal and palpation of chest normal Resp normal respiratory effort Cardio regular rate and regular rhythm Rate: other Other Details: Heart sounds regular on exam. GI normal to inspection, nondistended, normoactive bowel sounds Back/Spine no CVA tenderness Extremity normal to inspection Neuro oriented x3 Neuro Narrative: Patient is awake alert appropriate. She has normal pphpxh-ce-rgqz coordination. She states the sense of motion spinning and vertigo is gone. I have her look left right up and down and she has no symptoms at all. Psych mental status grossly normal Skin no rashes or lesions noted MDM MDM MDM Narrative Medical decision making narrative: Patient is given meclizine here. She states she feels fine at this time and would prefer to go home. I will see if we get her up and walk. I want a make sure she is feeling well. She has had recent blood work and CAT scans. Patient was able to walk. But she did not feel safe or steady. There was not an ataxic gait. But patient states she does not feel like she is back to her normal. She is not safe at home. She states she normally has a care provider who comes in and helps. But her care provider is gone for a week on a vacation or out of town. Therefore she does not feel safe at home. She would like to come into rehab. She has evidently done this before with good results. We will do medical work-up at this time. A close friend of the patient came in. Close friend was concerned because this patient seems to be a little bit confused which is not her normal. She is calling her friend by the wrong name and her friend is also named Yesy. Friend is also concerned about this patient's safety. She does live at home alone in a two-story house. They have verified that her health aide that normally comes in every day is not available for at least 3 or 4 days. They are having trouble finding out if the person is ill or out of town or what the reason is. This patient has 4 sons but they live in [facility] and [place] and they are not available to help with the patient. With this mild confusion, feeling of unsteadiness, lack of support at home at this time, blood thinners and overall level of health is really not safe for the patient to be home. She would like to try to come in to see if she could get to rehab or TCU. I did discussed the case with the hospitalist. Lab Data Attestation: I reviewed the patient's lab results. Labs: Laboratory Results - last 24 hr 08/14/22 08/14/22 14:34 14:34 WBC 5.3 RBC 4.26 Hgb 12.6 Hct 39.1 MCV 91.8 MCH 29.6 MCHC 32.2 RDW Std Deviation 45.7 H RDW Coeff of Radha 13.4 Plt Count 204 MPV 10.3 Immature Gran % (Auto) 0.400 Neut % (Auto) 60.8 Lymph % (Auto) 22.8 [place] % (Auto) 10.2 H Eos % (Auto) 4.7 Baso % (Auto) 1.1 H Absolute Neuts (auto) 3.2 Absolute Lymphs (auto) 1.21 Nucleated RBC % 0 Sodium 140 Potassium 4.1 Chloride 106 Carbon Dioxide 30.0 Anion Gap 4 L BUN 20 H Creatinine 0.82 Estim Creat Clear Calc 46.10 Est GFR (MDRD) Af Amer 85 Est GFR (MDRD) Non-Af 70 BUN/Creatinine Ratio 24.4 H Glucose 99 Calcium 9.4 Radiography Diagnostic Testing: Clinical Impression(s) from Imaging Studies Brain CT 08/14/22 14:27 IMPRESSION: 1. Chronic involutional changes of the brain. 2. No acute intracranial process. 3. Sinus disease. Electronically Signed: Naresh Guerra MD at 15:27 EST , EKG Initial EKG: Comments: EKG done as part of medical work-up read by me showsAdministration physicians cost of medicine chart him with overall rate of 70. No significant ST or T wave change. No other ectopy. Widened QRS at 156 ms. QTc is a bit long at 498. Discharge Plan Triage Chief Complaint: Dizziness ED Provider: Zion Perrin Dx/Rx/DC Orders Clinical Impression: Vertigo, Generalized weakness, Confusion Prescriptions: No Action escitalopram oxalate 5 mg tablet 5 mg PO DAILY Linzess 72 mcg capsule 72 mcg PO DAILY fb-jqy-XF-Jj-Zo-sxverpm-lutein 1 EACH tablet 1 ea PO DAILY Label Comments: vitamin Eliquis 5 mg 5 mg BID levothyroxine 112 mcg tablet 112 mcg PO DAILY Label Comments: take 1 tablet by mouth once daily meclizine 25 mg tablet 25 mg PO BID PRN (Reason: dizziness) Qty: 14 0RF metoprolol tartrate 25 mg tablet 25 mg PO BID Qty: 180 3RF Primary Care Provider: Rod Ochoa Chi Referrals: Rod Ochoa Chi, MD [Primary Care Provider] - Disposition Disposition: Acute Care Hospital [facility]
--- NOTE | 2022-08-14 14:27 | EKG12_ITS ---
Test Reason : DIZZINESS Blood Pressure : / mmHG Vent. Rate : 070 BPM Atrial Rate : 069 BPM P-R Int : 000 ms QRS Dur : 156 ms QT Int : 462 ms P-R-T Axes : 000 -86 097 degrees QTc Int : 498 ms Ventricular-paced rhythm Abnormal ECG Confirmed by DEMARCO RUCKER, DARLENE ([id number]), magazine editor BRANDON POLLACK ([id number]) on 08/17/2022 11:20:14 AM Referred By: Confirmed By:DARLENE PAL MD
--- NOTE | 2022-08-14 14:27 | CT_ITS ---
INDICATION: vertigo trauma anticoagulated EXAMINATION: CT BRAIN - CT Head or Brain W/O Contrast Injection TECHNIQUE: Multiple axial images were obtained of the head without intravenous contrast. A radiation dose optimization technique was used for this scan. IV Contrast dosage and agent: None. COMPARISON: 08/02/2022 FINDINGS: BRAIN PARENCHYMA: No intra- or extra-axial hemorrhage. No evidence of acute infarct. No intracranial mass or mass effect. There is preservation of the harvey/white matter interface. Posterior fossa structures are unremarkable. Atherosclerotic calcifications of the cavernous internal carotid arteries. CSF SPACES: Appropriate for age. Disproportionate prominence of cortical sulci in the frontoparietal regions. Mild chronic periventricular deep white matter changes of microvascular disease. Basal cisterns are patent. CALVARIUM, SKULL BASE, PARANASAL SINUSES AND MASTOID AIR CELLS: Mucosal thickening of the right maxillary sinus. No discrete lytic or blastic abnormalities. ORBITS: Both globes, extraocular muscles, optic nerves and retrobulbar fat appear grossly unremarkable. CT/Brain/Head without Contrast IMPRESSION: 1. Chronic involutional changes of the brain. 2. No acute intracranial process. 3. Sinus disease. Electronically Signed: Naresh Guerra MD at 15:27 EST ,
--- NOTE | 2022-08-14 14:38 | ED.RN ---
UPDATED SON BILL ON PTS STATUS AND REQUEST TO BE ADMITTED TO GO TO TCU
[2022-08-14 14:44] LABS: Absolute Lymphocyte Count 1.21 X10^3/uL (0.83-4.51); Absolute Neutrophil Count 3.2 X10^3/uL (2.0-7.7); Basophil# 0.06 X10^3/uL; Basophil% 1.1 % (0-1); Eosinophil# 0.25 X10^3/uL; Eosinophils% 4.7 % (0-5); Hematocrit 39.1 % (37-47); Hemoglobin 12.6 g/dL (12.0-15.0); Lymphocyte # 1.21 X10^3/ul (0.83-4.51); Lymphocyte % 22.8 % (19-41); Mean Corp Hgb Conc 32.2 g/dL (32-36); Mean Corpuscular Hgb 29.6 pg (27.0-32.0); Mean Corpuscular Volume 91.8 fL (81-99); Mean Platelet Vol. 10.3 fl (6.2-12.0); Monocyte# 0.54 X10^3/uL; Monocyte% 10.2 % (0-10); NRBC Flagged by Analyzer 0 % (0-5); Neutrophil # 3.23 X10^3/uL (2.7-7.7); Neutrophil % 60.8 % (47-70); Platelet Count 204 K/mm3 (150-450); RBC Distribution Width CV 13.4 % (11.6-14.6); RBC Distribution Width SD 45.7 fl (35.1-43.9); Red Blood Count 4.26 M/mm3 (4.2-5.4); White Blood Count 5.3 K/mm3 (4.4-11.0)
[2022-08-14 14:55] LABS: Anion Gap 4 (5-15); BUN 20 mg/dL (7-18); BUN/Creat Ratio 24.4 RATIO (10-20); Calcium,Total 9.4 mg/dL (8.5-10.1); Chloride 106 mmol/L (98-107); Creatinine, Serum 0.82 mg/dL (0.55-1.02); EST Glomerular Filtration Rate 70 mL/min (>60); Est Glom Filt Rate - Afr Amer 85 mL/min (>60); Glucose 99 mg/dL (74-106); Potassium 4.1 mmol/L (3.5-5.1); Sodium Level 140 mmol/L (136-145)
[2022-08-14 15:12] VITALS: BP 145/77; PULSE 72; RESP 15; O2SAT 97
--- NOTE | 2022-08-14 15:58 | HP.PCM.HOS_ITS ---
HPI - General General Date of Admission: 08/14/22 HPI Narrative MARISA SANTIAGO, is a 87 F who presents to the hospital with vertigo. This is known vertigo that she has had for several years. She lives alone and appears to have dismount of anxiety associated with this. She presented today because she felt unsafe at home, she normally has a caregiver that will stop by however they appear to be on vacation or out of town and she did not feel comfortable at home. She says that she normally feels the dizziness when she first wakes up in the morning but once she is up her dizziness resolves over several minutes and then she feels okay throughout the day unless she sits down or lays down and then has some dizziness when she gets up again. A friend in the room noted some possible confusion CT of the brain was negative however further work-up is pending currently. [facility] Medical History Acquired hypothyroidism Anemia Arthritis Asthma Cardiology follow-up encounter Complete heart block Delayed wound healing Edema leg Essential (primary) hypertension History of GI bleed History of IBS History of stress test Hyperlipidemia Malnutrition Microscopic colitis Mild intermittent asthma Non-smoker Nonrheumatic mitral valve insufficiency Persistent atrial fibrillation Personal history of colonic polyps Rheumatoid arthritis Sick sinus syndrome Stroke/cerebrovascular accident Thyroid storm Ulcer of left lower extremity with fat layer exposed Ulcer of right lower extremity with fat layer exposed Venous insufficiency 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 Wears glasses Home Medications qyheslpt-ogd-AM 0.4 mg-calcium 162 mg-iron 18 wa-tgeaqhq-fhzabh tablet 1 ea PO DAILY supplement 06/03/19 [History Last Taken 04/25/21 08:31] escitalopram oxalate 5 mg tablet 5 mg PO DAILY anxiety 01/23/20 [History Last Taken 04/25/21 08:32] linaclotide 72 mcg capsule (Linzess) 72 mcg PO DAILY 08/17/21 [History Last Taken Unknown] Eliquis 5 mg BID 09/16/21 [History Last Taken Unknown] metoprolol tartrate 25 mg tablet 25 mg PO BID BP #180 tabs 07/05/22 [Rx Last Taken Unknown] levothyroxine 112 mcg tablet 112 mcg PO DAILY 07/28/22 [History Last Taken Unknown] meclizine 25 mg tablet 25 mg PO BID PRN dizziness #14 tabs 08/02/22 [Rx Last Taken Unknown] Allergy/AdvReac Type Severity Reaction Status Date / Time latex AdvReac Itching Verified 08/14/22 12:50 sulfamethoxazole AdvReac Nausea Verified 08/14/22 12:50 [From Bactrim] trimethoprim [From Bactrim] AdvReac Nausea Verified 08/14/22 12:50 Family History Father CAD (coronary artery disease) Brother Cancer Leukemia Brother Epilepsy Surgical History H/O thyroidectomy History of knee replacement History of permanent cardiac pacemaker placement History of right hip replacement Social History household members: none Smoking Status: Never smoker alcohol intake: never substance use type: does not use caffeine: Yes Type: tea Number of servings: 1 what type of physical activity do you participate in: other details: [employer] ROS Constitutional Constitutional: Denies chills, fatigue, fever(s) or malaise Eyes Eyes: Denies blurry vision ENT HEENT: Denies headache(s) or nasal discharge Cardiovascular Cardiovascular: Denies chest pain, dyspnea on exertion or syncope Respiratory/Chest Respiratory/Chest: Denies cough, shortness of breath at rest or shortness of breath with exertion Gastrointestinal Gastrointestinal: Denies constipation, diarrhea, nausea or vomiting Genitourinary Genitourinary: Denies dysuria Neurologic Neurologic: Reports dizziness; Denies focal weakness, numbness or tremor(s) Psychiatric Psychiatric: Reports anxiety; Denies depression Vital Signs Vital Signs Vital Signs: 08/14/22 12:48 08/14/22 12:51 08/14/22 15:12 Temperature 96.7 F L Temperature Source Temporal Pulse Rate 75 72 Respiratory Rate 16 15 Respiratory Effort Normal Non-Labored Respiratory Pattern Normal Blood Pressure 147/71 H 145/77 H Blood Pressure Mean 96 99 Pulse Ox 99 97 Oxygen Delivery Method Nasal Cannula Room Air Weight Weight: 151 lb 10.848 oz Body Mass Index (BMI) 24.5 Physical Exam Narrative General: Alert, Oriented x3, Cooperative, No apparent distress HEENT: Atraumatic, PERRLA, EOMI, Normocephalic Oral: Moist Mucosa Neck: Supple, No JVD Lungs: Clear to auscultation, Normal air movement, No rhonchi, No wheeze, No rales Cardiovascular: Regular rate, Regular Rhythm, Normal S1, Normal S2, No murmurs Abdomen: Soft, Non Tender, Non-Distended, No Hepato-splenomegaly Extremities: No edema, Capillary Refill Less than 3 Seconds Skin: No rashes, No breakdown Musculoskeletal: No Tenderness to Palpation of Joints or Extremities Neurological: Cranial nerves II-XII grossly intact, Motor Exam 5/5 strength throughout, Sensory exam intact to light touch and pain. No nystagmus Psych/Mental Status: Normal Affect, Appropriate Results Lab / Micro Data Result Diagrams: 08/14/22 14:34 08/14/22 14:34 Labs: Laboratory Results - last 24 hr 08/14/22 14:34: WBC 5.3, RBC 4.26, Hgb 12.6, Hct 39.1, MCV 91.8, MCH 29.6, MCHC 32.2, RDW Std Deviation 45.7 H, RDW Coeff of Radha 13.4, Plt Count 204, MPV 10.3, Immature Gran % (Auto) 0.400, Neut % (Auto) 60.8, Lymph % (Auto) 22.8, [place] % (Auto) 10.2 H, Eos % (Auto) 4.7, Baso % (Auto) 1.1 H, Absolute Neuts (auto) 3.2, Absolute Lymphs (auto) 1.21, Nucleated RBC % 0 08/14/22 14:34: Sodium 140, Potassium 4.1, Chloride 106, Carbon Dioxide 30.0, Anion Gap 4 L, BUN 20 H, Creatinine 0.82, Estim Creat Clear Calc 46.10, Est GFR (MDRD) Af Amer 85, Est GFR (MDRD) Non-Af 70, BUN/Creatinine Ratio 24.4 H, Gluco se 99, Calcium 9.[address] 08/14/22 14:27 IMPRESSION: 1. Chronic involutional changes of the brain. 2. No acute intracranial process. 3. Sinus disease. Electronically Signed: Naresh Guerra MD at 15:27 EST , Assessment & Plan Assessment/Plan (1) Vertigo: PLAN: Plan 1. Vertigo ? Friend noted some confusion as to what her name was but there is no obvious signs of disorientation or encephalopathy ? Continue with her meclizine we will obtain PT/OT evaluation for possible placement if necessary ? She does not have an ataxic gait and does not unbalanced so the likelihood of a posterior stroke is low ? Continue with meclizine 2. HTN/A. fib ? Blood pressures are currently stable ? Resume her home medications ? Can resume her home Eliquis 3. Hypothyroidism ? Stable ? Continue with Synthroid DVT: Eliquis Charges/Coding Visit Charges OBSV E&M: 79497 Initial observation care L2
[2022-08-14 16:36] VITALS: BP 145/77; PULSE 70; RESP 17; TEMP 36.3; O2SAT 92
[2022-08-14 17:25] VITALS: PULSE 68; BMI 22.1
[2022-08-14 17:56] LABS: Bacteria 0 SEEN /hpf (None Seen); Mucous, Urine 0 SEEN /hpf (<or=2+); Red Blood Cells-Urine 0 SEEN /hpf (0-5); Squamous Epithelial Cells - UA 0 SEEN /hpf (5-10)
[2022-08-14 18:35] LABS: Color, Urine Yellow (Yellow); Glucose, Dipstick Normal (Normal); Ketone-Dipstick 5 mg/dl (Negative); Leukocyte Esterase-Dipstick 25 /ul (Negative); Nitrite-Dipstick Negative (Negative); Occult Blood-Urine 10 /ul (Negative); Protein-Dipstick Negative (Negative); Urine Bilirubin Dipstick Negative (Negative); Urine Clarity Clear (Clear); Urine Urobilinogen Normal (Normal)
[2022-08-14 18:42] LABS: White Blood Cells 5-10 SEEN /hpf (0-5)
[2022-08-14 23:17] VITALS: BP 146/76; PULSE 70; RESP 18; TEMP 36.5; O2SAT 96
[2022-08-14 23:19] VITALS: BP 146/76; PULSE 70
[2022-08-14] MEDS: Metoprolol Tartrate 25 MG Tablet PO (23:19)
[2022-08-14] MEDS: APIXABAN 2.5 MG TABLET (WCH) PO (23:20)
[2022-08-14] MEDS: 0.9% Saline Lock 10 ML Syringe IV (23:20)
[2022-08-15] VITALS (7 sets, daily range): BP systolic 108–134; BP diastolic 62–83; PULSE 69–76; RESP 16–18; TEMP 36.6–37.1; O2SAT 94–98
[2022-08-15] MEDS: MELATONIN 3 MG TABLET PO (00:43)
[2022-08-15 05:59] LABS: Absolute Lymphocyte Count 1.07 X10^3/uL (0.83-4.51); Absolute Neutrophil Count 2.8 X10^3/uL (2.0-7.7); Basophil# 0.09 X10^3/uL; Basophil% 1.9 % (0-1); Eosinophils% 6.2 % (0-5); Hematocrit 37.2 % (37-47); Hemoglobin 12.1 g/dL (12.0-15.0); Lymphocyte # 1.07 X10^3/ul (0.83-4.51); Mean Corp Hgb Conc 32.5 g/dL (32-36); Mean Corpuscular Volume 92.1 fL (81-99); Mean Platelet Vol. 10.5 fl (6.2-12.0); Monocyte# 0.58 X10^3/uL; Monocyte% 11.9 % (0-10); NRBC Flagged by Analyzer 0 % (0-5); Neutrophil # 2.81 X10^3/uL (2.7-7.7); Neutrophil % 57.8 % (47-70); Platelet Count 200 K/mm3 (150-450); RBC Distribution Width CV 13.2 % (11.6-14.6); RBC Distribution Width SD 44.8 fl (35.1-43.9); Red Blood Count 4.04 M/mm3 (4.2-5.4); White Blood Count 4.9 K/mm3 (4.4-11.0)
[2022-08-15] MEDS: Levothyroxine 100 MCG Tablet PO (06:12)
[2022-08-15 06:35] LABS: Anion Gap 4 (5-15); BUN 25 mg/dL (7-18); BUN/Creat Ratio 28.4 RATIO (10-20); Chloride 107 mmol/L (98-107); Creatinine, Serum 0.88 mg/dL (0.55-1.02); EST Glomerular Filtration Rate 65 mL/min (>60); Est Glom Filt Rate - Afr Amer 78 mL/min (>60); Estimated Creatinine Clearance 46.29 ml/min; Glucose 87 mg/dL (74-106); Potassium 4.1 mmol/L (3.5-5.1); Sodium Level 140 mmol/L (136-145)
[2022-08-15] MEDS: Metoprolol Tartrate 25 MG Tablet PO ×2 (09:49→20:27)
[2022-08-15] MEDS: APIXABAN 2.5 MG TABLET (WCH) PO ×2 (09:51→20:27)
[2022-08-15] MEDS: Escitalopram Oxalate 10 MG Tablet 5 MG PO (09:51)
--- NOTE | 2022-08-15 13:02 | PN.HOSP_ITS ---
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 until Tuesday Objective Data Objective Data Vital Signs: Vital Signs Temp Pulse Resp BP Pulse Ox O2 Del Method 97.9 F 71 18 108/62 98 Room Air 08/15/22 10:00 08/15/22 10:00 08/15/22 10:00 08/15/22 10:00 08/15/22 10:00 08/15/22 10:00 Oxygen Delivery Method Room Air Weight: 145 lb 11.609 oz Body Mass Index (BMI) 22.1 Intake & Output: Intake and Output for Last 24 Hours 08/14/22 08/15/22 08/16/22 03:59 03:59 03:59 Intake Total 450 / 450 Output Total 400 / 400 Balance 50 / 50 Lab / Micro Data Result Diagrams: 08/15/22 04:41 08/15/22 04:41 Labs: Laboratory Results - last 24 hr 08/14/22 14:34: WBC 5.3, RBC 4.26, Hgb 12.6, Hct 39.1, MCV 91.8, MCH 29.6, MCHC 32.2, RDW Std Deviation 45.7 H, RDW Coeff of Radha 13.4, Plt Count 204, MPV 10.3, Immature Gran % (Auto) 0.400, Neut % (Auto) 60.8, Lymph % (Auto) 22.8, [place] % (Auto) 10.2 H, Eos % (Auto) 4.7, Baso % (Auto) 1.1 H, Absolute Neuts (auto) 3.2, Absolute Lymphs (auto) 1.21, Nucleated RBC % 0 08/14/22 14:34: Sodium 140, Potassium 4.1, Chloride 106, Carbon Dioxide 30.0, Anion Gap 4 L, BUN 20 H, Creatinine 0.82, Estim Creat Clear Calc 46.10, Est GFR (MDRD) Af Amer 85, Est GFR (MDRD) Non-Af 70, BUN/Creatinine Ratio 24.4 H, Glucose 99, Calcium 9.4 08/14/22 17:30: Urine Color Yellow, Urine Clarity Clear, Urine pH 7.0, Ur Specific [place] 1.010, Urine Protein Negative, Urine Glucose (UA) Normal, Urine Ketones 5 H, Urine Occult Blood 10 H, Urine Nitrite Negative, Urine Bilirubin Negative, Urine Urobilinogen Normal, Ur Leukocyte Esterase 25 H, Urine RBC 0 SEEN, Urine WBC 5-10 SEEN, Ur Squamous Epith Cells 0 SEEN, Urine Bacteria 0 SEEN, Urine Mucus 0 SEEN 08/15/22 04:41: WBC 4.9, RBC 4.04 L, Hgb 12.1, Hct 37.2, MCV 92.1, MCH 30.0, MCHC 32.5, RDW Std Deviation 44.8 H, RDW Coeff of Radha 13.2, Plt Count 200, MPV 10.5, Immature Gran % (Auto) 0.200, Neut % (Auto) 57.8, Lymph % (Auto) 22.0, [place] % (Auto) 11.9 H, Eos % (Auto) 6.2 H, Baso % (Auto) 1.9 H, Absolute Neuts (auto) 2.8, Absolute Lymphs (auto) 1.07, Nucleated RBC % 0 08/15/22 04:41: Sodium 140, Potassium 4.1, Chloride 107, Carbon Dioxide 29.0, Anion Gap 4 L, BUN 25 H, Creatinine 0.88, Estim Creat Clear Calc 46.29, Est GFR (MDRD) Af Amer 78, Est GFR (MDRD) Non-Af 65, BUN/Creatinine Ratio 28.4 H, Glucose 87, Calcium 9.0 Radiography Diagnostic Testing: Radiology Impression Brain CT 08/14/22 14:27 IMPRESSION: 1. Chronic involutional changes of the brain. 2. No acute intracranial process. 3. Sinus disease. Electronically Signed: Naresh Guerra MD at 15:27 EST , Physical Exam Narrative General: Alert, Oriented x3, Cooperative, No apparent distress HEENT: Atraumatic, PERRLA, EOMI, Normocephalic Oral: Moist Mucosa Neck: Supple, No JVD Lungs: Clear to auscultation, Normal air movement, No rhonchi, No wheeze, No rales Cardiovascular: Regular rate, Regular Rhythm, Normal S1, Normal S2, No murmurs Abdomen: Soft, Non Tender, Non-Distended, No Hepato-splenomegaly Extremities: No edema, Capillary Refill Less than 3 Seconds Skin: No rashes, No breakdown Musculoskeletal: No Tenderness to Palpation of Joints or Extremities Neurological: Cranial nerves II-XII grossly intact, Motor Exam 5/5 strength throughout, Sensory exam intact to light touch and pain. No nystagmus Psych/Mental Status: Normal Affect, Appropriate Assessment & Plan Assessment/Plan (1) Vertigo: PLAN: Plan 1. Vertigo ? Friend noted some confusion as to what her name was but there is no obvious signs of disorientation or encephalopathy ? Infection work-up is negative ? Continue with her meclizine ? She was seen by PT recommending 24-hour supervision which likely will not o ccur until tomorrow ? She does not have an ataxic gait and does not unbalanced so the likelihood of a posterior stroke is low ? Continue with meclizine 2. HTN/A. fib ? Blood pressures are currently stable ? Resume her home medications ? Can resume her home Eliquis 3. Hypothyroidism ? Stable ? Continue with Synthroid DVT: Eliquis Charges/Coding Visit Charges OBSV E&M: 49259 Subsequent observation care L2
[2022-08-15] MEDS: 0.9% Saline Lock 10 ML Syringe IV (20:28)
--- NOTE | 2022-08-15 20:42 | NURSING ---
Son, Curtis Quinn, called wondering why his mother had been admitted to the hospital. This RN received permission from the patient to give out information to her son, Curtis. Tabitha said Curtis is her youngest of her four boys. Update given to son. Curtis thanked this RN for the care his mother is receiving at [facility].
[2022-08-16 02:22] VITALS: BP 152/76; PULSE 70; RESP 18; TEMP 36.4; O2SAT 96
[2022-08-16] MEDS: Levothyroxine 100 MCG Tablet PO (05:53)
[2022-08-16] MEDS: Meclizine HCl 25 MG Tablet PO (05:53)
--- NOTE | 2022-08-16 08:33 | PCM.DC.SUM ---
Providers Date of Admission: 08/14/22 Date of Discharge: 08/16/22 Primary Care Physician: Dr. Rod Ochoa MD Reason For Visit: VERTIGO Diagnosis Discharge Diagnosis (1) Vertigo: Status: Acute Code(s): R42 - Dizziness and giddiness Medications at Discharge Home Medications sihorjyd-akm-ES 0.4 mg-calcium 162 mg-iron 18 tn-ybkyhaz-njfbte tablet 1 ea PO DAILY supplement 06/03/19 escitalopram oxalate 5 mg tablet 5 mg PO DAILY anxiety 01/23/20 linaclotide 72 mcg capsule (Linzess) 72 mcg PO DAILY 08/17/21 Eliquis 2.5 mg BID a-fib/clot prevention 09/16/21 metoprolol tartrate 25 mg tablet 25 mg PO BID BP #180 tabs 07/05/22 levothyroxine 112 mcg tablet 100 mcg PO DAILY 07/28/22 meclizine 25 mg tablet 25 mg PO BID PRN dizziness #14 tabs 08/02/22 donepezil 5 mg tablet 5 mg PO QHS 08/14/22 melatonin 10 mg tablet 10 mg PO QHS 08/14/22 Hospital Course Summary of Care Provided Minutes Spent on Discharge: 35 Hospital Course: Patient is an an 87-year-old lady with multiple comorbidities admitted with acute vertigo 1. Acute vertigo ? Patient was admitted to regular nursing floor CT of the head obtained came back unremarkable patient was seen in consultation by PT OT recommended for patient to be discharged home with 24-hour supervision 2. Paroxysmal A. fib ? Rate controlled. On systemic anticoagulation with apixaban 3. Sick sinus syndrome ? Pacemaker placement 4. Hypertension - Blood pressure controlled, home medications continued with dose adjustment as needed 5. Hypothyroidism - Patient is on levothyroxine home dose continued 6. Microscopic colitis ? Stable patient takes linaclotide 7. DVT prophylaxis ? On Eliquis Physical Exam Narrative GENERAL: cooperative HEENT: Atraumatic; normocephalic EYES; Anicteric, Normal Conjunctiva NECK; supple, normal thyroid, RESPIRATORY: Diminished to auscultation CARDIOVASCULAR: Regular S1 S2, GI: soft, normoactive bowel sounds, : No Renal angle tenderness; EXTREMITIES: No edema, no clubbing, MUSCULOSKELETAL: no muscle wasting NEURO: Awake; no lateralizing signs. SKIN: No Rash PSYCH; Flat affect Weight / BMI Weight Weight: 66.1 kg Body Mass Index (BMI) 22.1 ABG / Lab / Microbiology Data Result Diagrams: 08/15/22 04:41 08/15/22 04:41 D/C Instructions Discharge Diet: No restrictions Discharge Activity: Return to Normal Activity Call your doctor if you observe: Fever of 101 or Higher, Shortness of breath, Fainting spells and Chest pain Meaningful Use Info Meaningful Use Diagnoses (Choose all that apply): None applicable Discharge Plan Admission Admit Date/Time: 08/14/22 15:54 Attending Provider: Mina Dorman Primary Care Provider: Rod Ochoa Chi Consulting Providers: Nehemias Hernandez Discharge Orders/Prescriptions Prescriptions: Continued escitalopram oxalate 5 mg tablet 5 mg PO DAILY Linzess 72 mcg capsule 72 mcg PO DAILY fv-xpl-AY-Ju-Qr-mkesbio-lutein 1 EACH tablet 1 ea PO DAILY Label Comments: vitamin Eliquis 2.5 mg 2.5 mg BID levothyroxine 112 mcg tablet 100 mcg PO DAILY Label Comments: take 1 tablet by mouth once daily meclizine 25 mg tablet 25 mg PO BID PRN (Reason: dizziness) Qty: 14 0RF donepezil 5 mg Tablet 5 mg PO QHS melatonin 10 mg Tablet 10 mg PO QHS metoprolol tartrate 25 mg tablet 25 mg PO BID Qty: 180 3RF Referrals / Follow Up: Rod Ochoa Chi, MD [Primary Care Provider] - Disposition Disposition (needs filled in before D/C Order can be placed): Home, Self Care Charges/Coding Visit Charges OBSV E&M: 42298 Observation care discharge
[2022-08-16 09:04] VITALS: BP 137/77; PULSE 70; RESP 18; TEMP 36.6; O2SAT 99
[2022-08-16 09:22] VITALS: O2SAT 96
--- NOTE | 2022-08-16 09:45 | CASEMGMT ---
Addendum entered by Alisa Judd 08/16/22 10:03: Received notification from [facility] that pt is a current patient. Original Note: SARA MALIK in to discuss DUBOSE form with patient. SARA MALIK explained DUBOSE form, patient voiced understanding. Pt signed form and filed in chart. Pt provided with a copy of signed DUBOSE form. Pt cg in the room asking if pt can leave. Pt states she does feel safe at home. States she is I in bathing and dressing herself. States she uses a FWW and has a rollator at home. Cg comes for 2-3 hours per day and this is being increased to 5 hours this week. Pt denies further homegoing needs. Patient had no further questions or concerns at this time.
[2022-08-16 11:12] VITALS: BP 137/77; PULSE 70
[2022-08-16] MEDS: Metoprolol Tartrate 25 MG Tablet PO (11:12)
[2022-08-16] MEDS: APIXABAN 2.5 MG TABLET (WCH) PO (11:13)
[2022-08-16] MEDS: Escitalopram Oxalate 10 MG Tablet 5 MG PO (11:13)
[2022-08-16 11:39] VITALS: BP 128/66; PULSE 78; RESP 16; TEMP 36.7; O2SAT 98
[2022-08-16 14:49] LABS: AST(SGOT) 19 U/L (15-37); Alanine Aminotransfer ALT/SGPT 17 U/L (13-56); Albumin, Serum 3.2 g/dL (3.2-5.0); Alkaline Phosphatase 64 U/L (45-117); Cholesterol 172 mg/dL (200); Globulin 3.3 g/dL (2.2-4.2); High Density Lipoprotein 53 mg/dL; Protein, Total 6.5 g/dL (6.4-8.2); Thyroid Stim Hormone (TSH) 3.58 uIU/mL (0.358-3.74); Triglycerides 92 mg/dL; Very Low Density Lipoprotein 18 mg/dL (5-40)
== END 2022-08-16 11:46 | disposition home or self-care (01) ==
LOC: ED 15:56 → MS3 16:14
PROVIDERS: Admitting Provider Family Medicine; Emergency Provider Emergency Medicine; PCP Family Medicine Geriatric Medicine; Visit Provider Internal Medicine
DX: R42 Dizziness and giddiness (principal); M06.9 Rheumatoid arthritis, unspecified; I48.0 Paroxysmal atrial fibrillation; I49.5 Sick sinus syndrome; R53.1 Weakness; Z79.01 Long term (current) use of anticoagulants; E78.5 Hyperlipidemia, unspecified; I10 Essential (primary) hypertension; R41.0 Disorientation, unspecified; E89.0 Postprocedural hypothyroidism; Z95.0 Presence of cardiac pacemaker; Z79.899 Other long term (current) drug therapy; Z79.890 Hormone replacement therapy; K52.839 Microscopic colitis, unspecified; M19.90 Unspecified osteoarthritis, unspecified site; J45.20 Mild intermittent asthma, uncomplicated
CPT/HCPCS: 36415; 70450; 80048; 80053; 80061; 81001; 82306; 84443; 85025; 93005; 97162; 97165; 97535; 99218; 99285; A4216; G0378

== ENCOUNTER → 2022-10-07 | Outpatient (CLI) | payer MEDICARE, OTHER, SELFPAY ==
[2022-10-07 17:00] LABS: Absolute Lymphocyte Count 1.31 X10^3/uL (0.83-4.51); Absolute Neutrophil Count 2.6 X10^3/uL (2.0-7.7); Eosinophil# 0.34 X10^3/uL; Eosinophils% 6.9 % (0-5); Hematocrit 30.6 % (37-47); Hemoglobin 8.9 g/dL (12.0-15.0); Lymphocyte # 1.31 X10^3/ul (0.83-4.51); Lymphocyte % 26.5 % (19-41); Mean Corp Hgb Conc 29.1 g/dL (32-36); Mean Corpuscular Hgb 25.4 pg (27.0-32.0); Mean Corpuscular Volume 87.4 fL (81-99); Monocyte% 12.1 % (0-10); NRBC Flagged by Analyzer 0 % (0-5); Neutrophil # 2.58 X10^3/uL (2.7-7.7); Neutrophil % 52.3 % (47-70); Platelet Count 254 K/mm3 (150-450); RBC Distribution Width CV 14.2 % (11.6-14.6); RBC Distribution Width SD 45.6 fl (35.1-43.9); White Blood Count 4.9 K/mm3 (4.4-11.0)
[2022-10-07 17:40] LABS: AST(SGOT) 18 U/L (15-37); Alanine Aminotransfer ALT/SGPT 16 U/L (13-56); Albumin, Serum 3.5 g/dL (3.2-5.0); Alkaline Phosphatase 55 U/L (45-117); Anion Gap 6 (5-15); BUN 29 mg/dL (7-18); BUN/Creat Ratio 34.6 RATIO (10-20); Calcium,Total 9.1 mg/dL (8.5-10.1); Chloride 106 mmol/L (98-107); Creatinine, Serum 0.84 mg/dL (0.55-1.02); EST Glomerular Filtration Rate 68 mL/min (>60); Est Glom Filt Rate - Afr Amer 83 mL/min (>60); Globulin 3.6 g/dL (2.2-4.2); Glucose 108 mg/dL (74-106); Potassium 4.2 mmol/L (3.5-5.1); Protein, Total 7.1 g/dL (6.4-8.2); Sodium Level 141 mmol/L (136-145)
[2022-10-12 09:36] LABS: Ferritin 8 ng/mL (8-252); Iron 20 ug/dL (50-170); Iron Binding Capacity,Total 419 ug/dL (250-450)
== END | disposition home or self-care (01) ==
LOC: BIMLAB 15:52
PROVIDERS: PCP Internal Medicine; Referring Provider Internal Medicine; Visit Provider Internal Medicine
DX: D64.9 Anemia, unspecified (principal)
CPT/HCPCS: 36415; 80053; 82728; 83540; 83550; 85025

== ENCOUNTER 2022-11-03 11:54 | Outpatient (CLI) | payer MEDICARE, OTHER, SELFPAY ==
[2022-11-03 12:23] LABS: Hematocrit 35.5 % (37-47); Hemoglobin 10.3 g/dL (12.0-15.0)
== END 2022-11-03 23:59 | disposition home or self-care (01) ==
LOC: PAVLAB 11:56
PROVIDERS: PCP Internal Medicine; Referring Provider Surgery; Visit Provider Surgery
DX: D64.9 Anemia, unspecified (principal)
CPT/HCPCS: 36415; 85014; 85018

== ENCOUNTER → 2023-01-10 | Outpatient (CLI) | payer MEDICARE, OTHER, SELFPAY ==
[2023-01-10 15:27] LABS: Absolute Lymphocyte Count 1.21 X10^3/uL (0.83-4.51); Absolute Neutrophil Count 2.7 X10^3/uL (2.0-7.7); Basophil# 0.09 X10^3/uL; Basophil% 1.8 % (0-1); Eosinophil# 0.29 X10^3/uL; Eosinophils% 5.9 % (0-5); Hemoglobin 13.5 g/dL (12.0-15.0); Lymphocyte # 1.21 X10^3/ul (0.83-4.51); Lymphocyte % 24.8 % (19-41); Mean Corp Hgb Conc 31.4 g/dL (32-36); Mean Corpuscular Hgb 28.4 pg (27.0-32.0); Mean Corpuscular Volume 90.5 fL (81-99); Mean Platelet Vol. 11.5 fl (6.2-12.0); Monocyte# 0.54 X10^3/uL; Monocyte% 11.1 % (0-10); NRBC Flagged by Analyzer 0 % (0-5); Neutrophil # 2.74 X10^3/uL (2.7-7.7); Neutrophil % 56.2 % (47-70); Platelet Count 189 K/mm3 (150-450); RBC Distribution Width CV 16.6 % (11.6-14.6); Red Blood Count 4.75 M/mm3 (4.2-5.4); White Blood Count 4.9 K/mm3 (4.4-11.0)
[2023-01-10 15:57] LABS: Thyroid Stim Hormone (TSH) 0.54 uIU/mL (0.358-3.74)
== END | disposition home or self-care (01) ==
LOC: BIMLAB 13:38
PROVIDERS: PCP Internal Medicine; Referring Provider Internal Medicine; Visit Provider Internal Medicine
DX: E03.9 Hypothyroidism, unspecified (principal)
CPT/HCPCS: 36415; 84443; 85025

== ENCOUNTER 2023-06-14 11:27 | Emergency (ER) | payer MEDICARE, OTHER, SELFPAY ==
[2023-06-14 11:28] VITALS: BP 141/62; PULSE 69; RESP 18; TEMP 35.8; O2SAT 97
--- NOTE | 2023-06-14 12:02 | ED.VIS.FALL ---
HPI HPI - Fall History of Present Illness Chief Complaint: Fall Informant: patient and friend Occured/Mechanism Occurred: Today Mechanism/Context: Yes same level fall and Yes trip Usually ambulates: Without assistance Pain/Injury Pain Location: upper extremity Quality of Pain: Aching Current Severity: Moderate Maximum Severity: Moderate Worsened by: movement Relieved by: remaining still Associated Symptoms Associated Symptoms: Positive for Loss of function; Negative for Parasthesias or Weakness Narrative Narrative: 88-year-old female was bringing plants from her porch back into her house she accidentally lost her footing and fell, landing on outstretched left hand no other injury but her wrist is injured and swollen. Zssvp-mfat-[id number]. [facility] Medical History Acquired hypothyroidism Allergies Anemia Anxiety and depression Arthritis Asthma Atrial fibrillation BRBPR (bright red blood per rectum) Cardiology follow-up encounter Carpal tunnel syndrome Closed head injury Complete heart block Concussion Delayed wound healing Edema leg Essential (primary) hypertension Fall Fracture of metacarpal base, first, right hand, closed GI bleed Goiter Hearing problem History of GI bleed History of IBS History of stress test Hyperlipidemia Hypertension Hypothyroidism Malnutrition Memory impairment Microscopic colitis Microscopic colitis Mild intermittent asthma Non-smoker Nonrheumatic mitral valve insufficiency Open wound of left ring finger Osteoarthritis Parathyroid disorder Periorbital edema of left eye Persistent atrial fibrillation Personal history of colonic polyps Rheumatoid arthritis Sick sinus syndrome Stroke/cerebrovascular accident Thyroid storm Ulcer of left lower extremity with fat layer exposed Ulcer of right lower extremity with fat layer exposed Venous insufficiency 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 Wears glasses Home Medications catlazpp-lgo-KY 0.4 mg-calcium 162 mg-iron 18 cu-lfrqkqz-lpzgrn tablet 1 ea PO DAILY supplement 06/03/19 [History Last Taken 04/25/21 08:31] linaclotide 72 mcg capsule (Linzess) 72 mcg PO PRN PRN Constipation 08/17/21 [History Last Taken Unknown] metoprolol tartrate 25 mg tablet 25 mg PO BID BP #180 tabs 07/05/22 [Rx Last Taken Unknown] levothyroxine 112 mcg tablet 112 mcg PO DAILY 07/28/22 [History Last Taken Unknown] meclizine 25 mg tablet 25 mg PO BID 08/18/22 [History Last Taken Unknown] acetaminophen 325 mg capsule (Tylenol) 650 mg PO ONCE PRN Pain 10/07/22 [History Last Taken Unknown] apixaban 2.5 mg tablet (Eliquis) 2.5 mg PO BID #180 tabs 11/24/22 [Rx Last Taken Unknown] budesonide 90 mcg/actuation breath activated powder inhaler 1 inh inhalation BID PRN shortness of breath or wheezing 03/14/23 [History Last Taken Unknown] ferrous sulfate 325 mg (65 mg iron) tablet (FeroSul) 325 mg PO .hs 03/14/23 [History Last Taken Unknown] biotin 500 mcg capsule 1 mg PO DAILY 03/25/23 [History Last Taken Unknown] donepezil 5 mg tablet 5 mg PO QHS #90 tabs 04/07/23 [Rx Last Taken Unknown] escitalopram oxalate 5 mg tablet 5 mg PO DAILY anxiety #90 tabs 04/20/23 [Rx Last Taken Unknown] Allergy/AdvReac Type Severity Reaction Status Date / Time Environmental Allergies: Allergy Mild sneezing Verified 06/14/23 11:28 Uncoded latex AdvReac Itching Verified 06/14/23 11:28 sulfamethoxazole AdvReac Nausea Verified 06/14/23 11:28 [From Bactrim] trimethoprim [From Bactrim] AdvReac Nausea Verified 06/14/23 11:28 Family History Father CAD (coronary artery disease) Brother Cancer Leukemia Brother Epilepsy Mother Colon cancer Other CVA (cerebral vascular accident) Diabetes Surgical History H/O thyroidectomy H/O thyroidectomy History of knee replacement History of permanent cardiac pacemaker placement History of right hip replacement Social History household members: none Smoking Status: Never smoker alcohol intake: never substance use type: does not use caffeine: Yes Type: tea Number of servings: 1 what type of 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 activity do you 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 ROS ROS ED Constitutional Constitutional ED: Denies chills or fever(s) Musculoskeletal Musculoskeletal: Reports extremity pain; Denies neck pain Integumentary Denies Abrasions, rash or wounds Neurologic Neurologic: Denies paresthesias or weakness EXAM Physical Exam Const Vital Signs: 06/14/23 11:28 06/14/23 12:03 Temperature 96.4 F L Temperature Source Temporal Pulse Rate 69 Respiratory Rate 18 Respiratory Effort Normal Non-Labored Respiratory Pattern Normal Blood Pressure 141/62 H Blood Pressure Mean 88 Pulse Ox 97 Oxygen Delivery Method Room Air Positive well nourished and well developed General Appearance ED: well developed and NAD Neck full ROM and supple Back/Spine normal ROM and normal to inspection Extremity Extremity Narrative: Limited range of motion left wrist due to pain. There is swelling and bony tenderness at the distal radius but not at the navicular, no pain with axial loading of the thumb. No other hand bony tenderness. There is no gross deformity but it is swollen and suspicious for fracture. Elbow nontender, shoulder nontender full range of those joints and all other joints of the other 3 extremities are benign and atraumatic. Neuro oriented x3, no focal motor deficits and no sensory deficits noted Sensorium / Orientation: alert Psych mental status grossly normal and thought process normal Skin no wounds Rashes: no rashes MDM MDM MDM Narrative Medical decision making narrative: Three-view left wrist on my interpretation shows nondisplaced fractures distal radius and ulnar styloid, neither of which were noted by the radiologist. I think his interpretation is incorrect. Clinically I am concerned about fracture. The patient was splinted see the procedure note, and referred to orthopedics as an outpatient. She lives at home alone but has a friend who helps often, she is fkqge-lvqf-npclwnjw, and she feels she will be able to care for herself with help not need to be admitted. Declines prescription analgesics. Radiography Diagnostic Testing: Clinical Impression(s) from Imaging Studies Wrist X-Ray 06/14/23 12:08 IMPRESSION: Generalized osteopenia. Degenerative arthrosis of the radiocarpal joint, distal radioulnar joint, and first CMC joint. No demonstrated acute fracture. Electronically Signed: Jeremy Barrera MD at 12:32 EDT , Procedures Upper Extremity Splints Upper Extremity Splint: Orthoglass (AP short arm, neurovascularly intact distally after placement) Splint Fabrication: Fabricated Location: Left Discharge Plan Triage Chief Complaint: Fall ED Provider: Sixto Painter Dx/Rx/DC Orders Clinical Impression: Nondisplaced fracture of distal end of left radius, Accidental fall Instructions: Wrist Fracture, ED Splint Care, Fiberglass Prescriptions: No Action Linzess 72 mcg capsule 72 mcg PO PRN PRN (Reason: Constipation) acetaminophen [Tylenol] 325 mg capsule 650 mg PO ONCE PRN (Reason: Pain) Rx Instructions: as needed for pain budesonide 90 mcg/actuation aerosol powdr breath activated 1 inh inhalation BID PRN (Reason: shortness of breath or wheezing) vh-gvo-QJ-Ur-Vp-ucyvpcm-lutein 1 EACH tablet 1 ea PO DAILY Patient Comments: vitamin levothyroxine 112 mcg tablet 112 mcg PO DAILY Patient Comments: take 1 tablet by mouth once daily meclizine 25 mg tablet 25 mg PO BID biotin 500 mcg capsule 1 mg PO DAILY ferrous sulfate [FeroSul] 325 mg (65 mg iron) tablet 325 mg PO .hs Patient Comments: take 1 tablet by mouth once daily metoprolol tartrate 25 mg tablet 25 mg PO BID Qty: 180 3RF Eliquis 2.5 mg tablet 2.5 mg PO BID Qty: 180 3RF donepezil 5 mg tablet 5 mg PO QHS Qty: 90 3RF escitalopram oxalate 5 mg tablet 5 mg PO DAILY Qty: 90 0RF Primary Care Provider: Elizabeth Cai Referrals: Darien Corona MD [Med Staff - Active Staff] - As soon as possible (call for appt to be seen within next 1-2 weeks) Elizabeth Cai MD [Primary Care Provider] - Disposition Disposition: Home, Self Care
--- NOTE | 2023-06-14 12:08 | RAD_ITS ---
STUDY: X-RAY - LEFT WRIST REASON FOR EXAM: Female, 88 years old. Injury. TECHNIQUE: 3 views of the left wrist were obtained. COMPARISON: Left wrist x-ray report dated 04/05/2016. FINDINGS: There is generalized osteopenia. Intact visualized distal radius and ulna. There is mild degenerative arthrosis of the radiocarpal and distal radioulnar joints. Intact carpal bones. Normal carpal articulations. There is degenerative arthrosis of the carpometacarpal articulation of the thumb. Normal second through fifth carpometacarpal articulations. Normal visualized metacarpal bones. There is no demonstrated acute fracture. There are atherosclerotic calcifications. RAD/Wrist min 3 Views IMPRESSION: Generalized osteopenia. Degenerative arthrosis of the radiocarpal joint, distal radioulnar joint, and first CMC joint. No demonstrated acute fracture. Electronically Signed: Jereym Barrera MD at 12:32 EDT ,
== END 2023-06-14 14:40 | disposition home or self-care (01) ==
PROVIDERS: Emergency Provider Emergency Medicine; PCP Internal Medicine; Visit Provider Emergency Medicine
DX: S52.502A Unspecified fracture of the lower end of left radius, initial encounter for closed fracture (principal); W18.30XA Fall on same level, unspecified, initial encounter; Z86.010 Personal history of colon polyps; Z86.73 Personal history of transient ischemic attack (TIA), and cerebral infarction without residual deficits; Z95.0 Presence of cardiac pacemaker
CPT/HCPCS: 29125; 73110; 99282

== ENCOUNTER → 2023-07-18 | Outpatient (CLI) | payer MEDICARE, OTHER, SELFPAY ==
[2023-07-18 12:08] LABS: Mucous, Urine 0 SEEN /hpf (<or=2+)
[2023-07-18 15:30] LABS: Absolute Lymphocyte Count 0.99 X10^3/uL (0.83-4.51); Absolute Neutrophil Count 2.2 X10^3/uL (2.0-7.7); Basophil# 0.06 X10^3/uL; Basophil% 1.5 % (0-1); Eosinophil# 0.27 X10^3/uL; Eosinophils% 6.9 % (0-5); Hematocrit 41.3 % (37-47); Hemoglobin 13.1 g/dL (12.0-15.0); Lymphocyte # 0.99 X10^3/ul (0.83-4.51); Lymphocyte % 25.3 % (19-41); Mean Corp Hgb Conc 31.7 g/dL (32-36); Mean Corpuscular Hgb 31.5 pg (27.0-32.0); Mean Corpuscular Volume 99.3 fL (81-99); Mean Platelet Vol. 11.1 fl (6.2-12.0); Monocyte# 0.42 X10^3/uL; Monocyte% 10.7 % (0-10); NRBC Flagged by Analyzer 0 % (0-5); Neutrophil # 2.16 X10^3/uL (2.7-7.7); Neutrophil % 55.1 % (47-70); Platelet Count 178 K/mm3 (150-450); RBC Distribution Width CV 12.8 % (11.6-14.6); RBC Distribution Width SD 46.6 fl (35.1-43.9); Red Blood Count 4.16 M/mm3 (4.2-5.4); White Blood Count 3.9 K/mm3 (4.4-11.0)
[2023-07-18 15:31] LABS: Color, Urine Yellow (Yellow); Glucose, Dipstick Normal (Normal); Ketone-Dipstick Negative (Negative); Leukocyte Esterase-Dipstick 25 /ul (Negative); Nitrite-Dipstick Negative (Negative); Occult Blood-Urine 25 /ul (Negative); Protein-Dipstick 30 mg/dl (Negative); Specific Gravity, Urine 1.025 (1.002-1.030); Urine Bilirubin Dipstick Negative (Negative); Urine Clarity Sl. Cloudy (Clear); Urine Urobilinogen Normal (Normal)
[2023-07-18 15:43] LABS: Red Blood Cells-Urine 0-5 SEEN /hpf (0-5); Squamous Epithelial Cells - UA 0-5 SEEN /hpf (5-10); Transitional Epithelial - Ur 0-5 SEEN /hpf (0-5); White Blood Cells 0-5 SEEN /hpf (0-5)
[2023-07-18 15:44] LABS: Bacteria RARE /hpf (None Seen)
[2023-07-18 15:56] LABS: ALB/GLOB Ratio 0.9 RATIO (0.9-2.4); AST(SGOT) 15 U/L (15-37); Alanine Aminotransfer ALT/SGPT 9 U/L (13-56); Albumin, Serum 3.4 g/dL (3.2-5.0); Alkaline Phosphatase 68 U/L (45-117); Anion Gap 5 (5-15); BUN 19 mg/dL (7-18); BUN/Creat Ratio 22.2 RATIO (10-20); Bilirubin, Direct 0.14 mg/dL (0.00-0.30); Chloride 105 mmol/L (98-107); Cholesterol 157 mg/dL (200); Creatinine, Serum 0.86 mg/dL (0.55-1.02); EST Glomerular Filtration Rate 67 mL/min (>60); Est Glom Filt Rate - Afr Amer 81 mL/min (>60); Globulin 3.6 g/dL (2.2-4.2); Glucose 114 mg/dL (74-106); High Density Lipoprotein 63 mg/dL; Potassium 4.4 mmol/L (3.5-5.1); Sodium Level 139 mmol/L (136-145); Thyroid Stim Hormone (TSH) 0.28 uIU/mL (0.358-3.74); Triglycerides 69 mg/dL; Very Low Density Lipoprotein 14 mg/dL (5-40)
== END | disposition home or self-care (01) ==
LOC: BIMLAB 11:51
PROVIDERS: PCP Internal Medicine; Referring Provider Internal Medicine; Visit Provider Internal Medicine
DX: E78.5 Hyperlipidemia, unspecified (principal); E03.9 Hypothyroidism, unspecified
CPT/HCPCS: 36415; 80053; 80061; 81001; 82248; 84443; 85025

== ENCOUNTER → 2023-10-24 | Outpatient (CLI) | payer MEDICARE, OTHER, SELFPAY ==
[2023-10-24 12:57] LABS: Anion Gap 3 (5-15); BUN 28 mg/dL (7-18); BUN/Creat Ratio 33.5 RATIO (10-20); Calcium,Total 9.3 mg/dL (8.5-10.1); Chloride 110 mmol/L (98-107); Creatinine, Serum 0.84 mg/dL (0.55-1.02); EST Glomerular Filtration Rate 68 mL/min (>60); Est Glom Filt Rate - Afr Amer 83 mL/min (>60); Glucose 95 mg/dL (74-106); Potassium 4.1 mmol/L (3.5-5.1); Sodium Level 141 mmol/L (136-145); Thyroid Stim Hormone (TSH) 1.12 uIU/mL (0.358-3.74)
[2023-10-24 13:36] LABS: Vitamin D,25 Hydroxy 36.4 ng/mL
== END | disposition home or self-care (01) ==
LOC: BIMLAB 11:36
PROVIDERS: PCP Internal Medicine; Referring Provider Internal Medicine; Visit Provider Internal Medicine
DX: M85.80 Other specified disorders of bone density and structure, unspecified site (principal); E03.9 Hypothyroidism, unspecified
CPT/HCPCS: 36415; 80048; 82306; 84443

== ENCOUNTER 2023-10-31 08:18 | Day surgery (SDC) | payer MEDICARE, OTHER, SELFPAY ==
[2023-10-28 08:02] VITALS: BMI 23.2
--- NOTE | 2023-10-31 09:15 | PRO.PCM_ITS ---
Procedure Report Date of Procedure: 10/31/23 Venogram to assess patency of the left subclavian vein This is an 88-year-old lady with a history of previous permanent pacemaker implantation who has pacemaker lead malfunction. There is a consideration to either explant the current lead or to place an additional lead. This was to be evaluated with a venogram. The patient was brought to the cardiac catheterization lab in the postabsorptive nonsedated state. An intravenous line was placed in the left forearm. 20 cc of intravenous contrast was then administered and observed under fluoroscopic and cineangiogram and follow- through through the right atrium and the ventricle. Patient tolerated the procedure well. Results: The venogram demonstrated patency of the left subclavian vein with adequate room for possible placement of an additional lead if need be.
[2023-10-31 10:10] LABS: Bacteria 0 SEEN /hpf (None Seen); Mucous, Urine 0 SEEN /hpf (<or=2+)
[2023-10-31 10:30] LABS: Hematocrit 33.7 % (37-47); Hemoglobin 10.4 g/dL (12.0-15.0); Mean Corp Hgb Conc 30.9 g/dL (32-36); Mean Corpuscular Hgb 29.9 pg (27.0-32.0); Mean Corpuscular Volume 96.8 fL (81-99); Mean Platelet Vol. 10.4 fl (6.2-12.0); Platelet Count 190 K/mm3 (150-450); RBC Distribution Width CV 13.3 % (11.6-14.6); Red Blood Count 3.48 M/mm3 (4.2-5.4); White Blood Count 5.9 K/mm3 (4.4-11.0)
[2023-10-31 11:11] LABS: International Normalized Ratio 1.3; Prothrombin Time (Protime)PT. 15.7 SECONDS (11.7-14.9)
[2023-10-31 14:22] LABS: Color, Urine Yellow (Yellow); Glucose, Dipstick Normal (Normal); Ketone-Dipstick Negative (Negative); Leukocyte Esterase-Dipstick 25 /ul (Negative); Nitrite-Dipstick Negative (Negative); Occult Blood-Urine 10 /ul (Negative); Protein-Dipstick Negative (Negative); Urine Bilirubin Dipstick Negative (Negative); Urine Clarity Sl. Cloudy (Clear); Urine Urobilinogen Normal (Normal)
[2023-10-31 14:36] LABS: Red Blood Cells-Urine 0-5 SEEN /hpf (0-5); Squamous Epithelial Cells - UA 0-5 SEEN /hpf (5-10); White Blood Cells 0-5 SEEN /hpf (0-5)
== END 2023-10-31 10:00 | disposition home or self-care (01) ==
PROVIDERS: PCP Internal Medicine; Referring Provider Internal Medicine Cardiovascular Disease; Visit Provider Internal Medicine Cardiovascular Disease
DX: I34.0 Nonrheumatic mitral (valve) insufficiency (principal); I49.5 Sick sinus syndrome; I48.0 Paroxysmal atrial fibrillation; I44.2 Atrioventricular block, complete; E78.5 Hyperlipidemia, unspecified; I10 Essential (primary) hypertension; Z95.0 Presence of cardiac pacemaker; T82.110A Breakdown (mechanical) of cardiac electrode, initial encounter
CPT/HCPCS: 36005; 36415; 75820; 81001; 85027; 85610; J7040; Q9967

== ENCOUNTER 2023-11-08 14:00 | Observation (INO) | payer MEDICARE, OTHER, SELFPAY ==
[2023-11-07 08:37] VITALS: BMI 23.2
[2023-11-08] VITALS (11 sets, daily range): BP systolic 101–154; BP diastolic 56–81; PULSE 68–70; RESP 16; TEMP 36.1–36.6; O2SAT 94–100; BMI 23.0
--- NOTE | 2023-11-08 13:53 | EX.PACEMAKER ---
Pacemaker Procedure Note Pacemaker Procedure Note Tabitha Quinn is a 88 year old female who has a past medical history of AF, SSS, and pacemaker for slow ventricular response, who presented to the [facility] EP lab for further evaluation regarding an RV lead addition. The patient was brought to the electrophysiology laboratory in a fasting state. Sedation provided by myself and nursing staff. A venogram of the left axillary vein was performed prior to admission, which showed a patent left subclavian vein, and a stenotic distal innominate vein. The left shoulder area was prepped and draped in the usual manner and the skin and subcutaneous tissues below the left clavicle were infiltrated with 1% lidocaine for local anesthesia. The skin was sharply incised. Electrocautery and blunt dissection were carried out to the level of the pulse generator. The generator was freed of fibriosis and removed from the pocket. Access to the left axillary vein was obtained x1 with a micropuncture needle using real-time fluoroscopic guidance. 1 guide wire was advanced to the right atrium and peel-away introducer sheaths were used to insert the lead. The right ventricular lead was placed in the mid septum. The leads was tested with a pacing systems analyzer with appropriate impedance and threshold. The lead was then anchored in place with 3-0 silk suture around their suture sleeve and connected to the pulse generator. The prior RV lead was capped and abandoned. The device was noted to function appropriately. The pocket was noted to have an absence of active bleeding. The pulse generator was placed in the pocket and sutured to the pre-pectoral fascia. The pocket was then irrigated with antibiotic solution. The incision was closed with two layers of 2-0 Vicryl and a subcuticular closure of 4-0 vicryl. The incision was dressed with steri-strips. Tyrx pouch was utilized. Conclusions Successful implantation of an RV lead with adequate pacing threshold (0.75V @0.5ms), sensing (12mV paced) and lead impedance (540ms) Recommendations 1. Routine follow-up in the device clinic. 2. Remove outer dressing after 48 hours. Leave steri-strips intact for 7-10 days, then remove if it does not fall off by itself. 3. Device follow up as scheduled. 4. Hold anticoagulation for 48 hours (No heparin IV or NOAC, ok to continue warfarin). 5. The patient can continue to follow-up with Dr. Rivera.
[2023-11-08] MEDS: Metoprolol Tartrate 25 MG Tablet PO (19:41)
[2023-11-08] MEDS: Donepezil HCl 5 MG Tablet PO (19:41)
[2023-11-09 04:11] VITALS: BP 109/59; PULSE 70; RESP 16; TEMP 36.1; O2SAT 94
--- NOTE | 2023-11-09 05:55 | RAD_ITS ---
EXAM: XR CHEST, 3 VIEWS CLINICAL INDICATION: Post permanant ICD/Pacemaker -- inspiration/expiration. Arms Down. Wet read to MD TECHNIQUE: Frontal, lateral and one additional view of the chest. COMPARISON: 2 view chest 09/02/2023 FINDINGS: LUNGS AND PLEURAL SPACES: Unremarkable. No consolidation or edema. No pneumothorax. No effusion. HEART: Moderate enlargement of the cardiac silhouette. MEDIASTINUM: Central airways and mediastinal contour are unremarkable. BONES/JOINTS: Degenerative changes of the spine. No acute fracture. SOFT TISSUES: Unremarkable. TUBES, LINES AND DEVICES: New left chest pacer with lead in the right ventricle. An old lead is in stable position but now disconnected. RAD/Chest 3 View IMPRESSION: New left chest pacer with lead in the right ventricle. No evidence of pneumothorax identified. Electronically Signed: Rubén Almeida MD at 5:24 EST ,
--- NOTE | 2023-11-09 07:18 | PCM.PN.CARD ---
Subjective Subjective Patient seen and evaluated and appears to be doing well status post pacemaker implantation Objective Data Vital Signs: Vital Signs Temp Pulse Resp BP Pulse Ox O2 Del Method 97 F L 70 16 109/59 L 94 Room Air 11/09/23 04:11 11/09/23 04:11 11/09/23 04:11 11/09/23 04:11 11/09/23 04:11 11/09/23 04:11 Oxygen Delivery Method Room Air Weight: 151 lb 5 oz Body Mass Index (BMI) 23.0 Intake & Output: Intake and Output for Last 24 Hours 11/07/23 11/08/23 11/09/23 23:59 23:59 23:59 Intake Total 400 / 400 120 / 120 Balance 400 / 400 120 / 120 Cardiology Labs/Tests Rhythm: EKG: ECHO: Stress Test: Cardiac Cath: PCI: CT Surgery: Holter monitor: EPS: PPM: CXR: Chest CT Scan: Radiography Diagnostic Testing: Radiology Impression Chest X-Ray 11/09/23 05:55 IMPRESSION: New left chest pacer with lead in the right ventricle. No evidence of pneumothorax identified. Electronically Signed: Rubén Almeida MD at 5:24 EST , Physical Exam Const alert, oriented x3 and no apparent distress General Appearance: cooperative HEENT hearing grossly normal bilaterally Head and Scalp: atraumatic Eyes EOMs intact bilaterally Neck General: normal visual inspection Chest inspection of chest normal and palpation of chest normal Resp normal respiratory effort Auscultation: clear to auscultation bilaterally Cardio regular rate, regular rhythm, S1 normal heart sound and S2 normal heart sound Jugular Venous Distention: JVD GI normal to inspection, nondistended, normoactive bowel sounds Extremity normal capillary refill and no pedal edema Peripheral Pulses: Yes pulses 2+ throughout and femoral pulses present Skin no rashes or lesions noted Neuro oriented x3 and CN's II-XII intact bilaterally Psych Appearance: grossly normal and appropriate Assessment & Plan Assessment/Plan (1) Status post placement of cardiac pacemaker: PLAN: Patient successfully underwent placement of a permanent pacemaker. Chest x-ray demonstrates good positioning. The pacemaker interrogation this morning was noted to be normal and she will be discharged for outpatient follow-up.
[2023-11-09 09:00] VITALS: BP 118/60; PULSE 70; RESP 14; TEMP 36.5; O2SAT 96
--- NOTE | 2023-11-09 09:00 | DCINST_ITS ---
Discharge Instructions Diet Discharge Diet: No restrictions (as you feel able. No excessive stretching. No lifting your arm over your head (keep elbow below shoulder level) until seen for your pacemaker check. Do not lift your elbow away from your side until you are seen for your first visit. Keep the arm sling on if it helps remind you not to lift your arm.) Activity Discharge Activity: May Not Drive May shower in (days): 2 Additional Activity Instructions:: May shower or bathe on [day 3]. Do not scrub the incision or soak in the tub. Just wash with soap and let the water run over the incision. Gently pat dry with towel. Medications: Take your pain medication as directed. Refer to your discharge instruction sheet for a list of medications you are to take. Dressing / Incision Call your doctor if your incision/area has: Continuous Slow Oozing, Sudden Increased Bleeding, Increased Pain/ Swelling, Increased Redness, Foul Smelling Discharge and Swelling at the incision site Call your doctor if you observe: Fever of 101 or Higher, Shortness of breath, Dizziness, Fainting spells, Swelling in the ankles, Chest pain, Prolonged hiccupping and Increased palpitations (irregular heartbeat) Suture Line Care: Avoid Pulling/Pushing and Avoid Pinching/Bending Additional Dressing/Incision Instructions:: When dressing is removed, wash and dry incision. Keep covered with a light bandage if it is rubbing against your clothing. Do not cover the incision with an airtight bandage. Change the bandage daily. Do not remove steri strips. The strips will fall off on their own. Follow Up Care Please Follow Up With: Fei Rivera MD When: Pacer clinic on November 15 at 1 PM Test Results: Test results from this visit will be discussed in further detail at your follow- up appointment, if applicable. Discharge Plan Admission Admit Date/Time: 11/08/23 14:00 Attending Provider: Fei Rivera Primary Care Provider: Elizabeth Cai Discharge Orders/Prescriptions Prescriptions: Continued Linzess 72 mcg capsule 72 mcg PO PRN PRN (Reason: Constipation) acetaminophen [Tylenol] 325 mg capsule 650 mg PO ONCE PRN (Reason: Pain) Rx Instructions: as needed for pain budesonide 90 mcg/actuation aerosol powdr breath activated 1 inh inhalation BID PRN (Reason: shortness of breath or wheezing) escitalopram oxalate 5 mg tablet 5 mg PO DAILY Qty: 90 1RF meclizine 25 mg tablet 25 mg PO BID PRN (Reason: dizziness) Qty: 90 1RF av-dte-KE-Pk-Aq-ysblskk-lutein 1 EACH tablet 1 ea PO DAILY Patient Comments: vitamin biotin 500 mcg capsule 1 mg PO DAILY levothyroxine 112 mcg tablet 112 mcg PO DAILY donepezil 5 mg tablet 5 mg PO QHS Qty: 90 3RF metoprolol tartrate 25 mg tablet 25 mg PO BID Qty: 180 3RF ferrous sulfate [FeroSul] 325 mg (65 mg iron) tablet See Rx Instructions .ROUTE .COMPLEX Qty: 90 3RF Dose Instruction: take 1 tablet by mouth once daily Rx Instructions: take 1 tablet by mouth once daily Held Eliquis 2.5 mg tablet 2.5 mg PO BID Qty: 180 3RF Hold Instructions: Resume on 11/17/23. Referrals / Follow Up: Elizabeth Cai MD [Primary Care Provider] - Disposition Disposition (needs filled in before D/C Order can be placed): Home, Self Care
[2023-11-09 09:18] VITALS: PULSE 70
[2023-11-09] MEDS: Metoprolol Tartrate 25 MG Tablet PO (09:18)
[2023-11-09] MEDS: Escitalopram Oxalate 10 MG Tablet 5 MG PO (09:20)
--- NOTE | 2023-11-09 10:33 | CASEMGMT ---
Patient has order for discharge. RN CM in to discuss needs at discharge. Patient denies needs at discharge. Patient states she has friend that will help her at home. Patient had no further questions or concerns.
== END 2023-11-09 09:00 | disposition home or self-care (01) ==
LOC: PCU 14:41
PROVIDERS: Admitting Provider Internal Medicine Cardiovascular Disease; PCP Internal Medicine; Referring Provider Internal Medicine; Visit Provider Internal Medicine Cardiovascular Disease
DX: Z45.018 Encounter for adjustment and management of other part of cardiac pacemaker (principal); M06.9 Rheumatoid arthritis, unspecified; I49.5 Sick sinus syndrome; I48.0 Paroxysmal atrial fibrillation; E78.5 Hyperlipidemia, unspecified; I10 Essential (primary) hypertension; Z79.01 Long term (current) use of anticoagulants; Z79.899 Other long term (current) drug therapy; Z79.890 Hormone replacement therapy; E03.9 Hypothyroidism, unspecified; J45.909 Unspecified asthma, uncomplicated
CPT/HCPCS: 33216; 71047; 93005; 99152; 99153; 99221; C1894; J7040; J7050; G0378

== ENCOUNTER 2023-11-27 16:56 | Inpatient (IN) | payer MEDICARE, OTHER, SELFPAY ==
[2023-11-27 16:56] VITALS: BP 133/59; PULSE 70; RESP 16; TEMP 36.4; O2SAT 95; BMI 24.5
--- NOTE | 2023-11-27 17:26 | CT_ITS ---
STUDY: CT BRAIN WITHOUT CONTRAST REASON FOR EXAM: Female, 88 years old. trauma Individualized dose optimization techniques were used for this CT. TECHNIQUE: Transaxial CT imaging of the brain was performed without administration of intravenous contrast material. COMPARISON: None FINDINGS: There are calcifications around the carotid artery. These are noted in the cavernous carotid arteries. Normal calvarium. Normal soft tissues. Prominent extra-axial spaces. There is mild cerebral atrophy with widening of the extra-axial spaces and ventricular dilatation. There are areas of decreased attenuation within the white matter tracts of the supratentorial brain, consistent with microvascular disease changes. Normal basal ganglia and thalami. Normal brainstem. There is mild cerebellar atrophy. There is no intracranial hemorrhage. There are no findings of an acute ischemic infarction. There is sinus disease. ASPECTS Score for Acute Strokes: 10/10 CT/Brain/Head without Contrast IMPRESSION: There are no acute findings. Chronic involutional changes of the brain. Electronically Signed: Rubén Casarez MD at 18:17 EDT ,
--- NOTE | 2023-11-27 17:26 | CT_ITS ---
EXAM: CT SPINE - CERVICAL WITHOUT IV REASON FOR EXAM: Female, 88 years old. NECK PAIN trauma HISTORY: NECK PAIN trauma Individualized dose optimization techniques were used for this CT. TECHNIQUE: Multiplanar images were obtained of the cervical spine. IV contrast was not utilized. COMPARISON: None. FINDINGS: The vertebral bodies do maintain their height. The odontoid process is intact. There is grade 1 anterolisthesis of C3 on C4 .No pre-vertebral soft tissue swelling is seen. The intravertebral disc height is lost. There are scattered lymph nodes in the neck. There are degenerative changes of the osseous structures. There is bilateral facet arthropathy. There are scattered levels of foraminal stenosis. There are vascular calcifications. CT/Spine Cervical without Contras IMPRESSION: Degenerative changes of the cervical spine. There are no acute findings. Electronically Signed: Rubén Casarez MD at 18:39 EDT ,
--- NOTE | 2023-11-27 17:30 | CT_ITS ---
STUDY: CT PELVIS WITHOUT CONTRAST REASON FOR EXAM: Female, 88 years old. HIP PAIN FRACTURE trauma TECHNIQUE: Transaxial imaging of the pelvis was performed without oral contrast, and without intravenous administration of contrast material. Individualized dose optimization techniques were used for this CT. COMPARISON: None. FINDINGS: Normal urinary bladder. Buckle-type nondisplaced fracture of the right sacral ala. Fracture of the right acetabulum. Fracture of the right superior and inferior pubic ramus. Total right hip arthroplasty. Degenerative findings in the left hip. Left hip hardware noted. Normal visualized small intestine. There are multiple colonic diverticula of the sigmoid colon consistent with chronic diverticulosis. Atrophic uterus. There is bilateral neural foraminal stenosis at L4-5 and L5-S1. There is no pelvic fluid. There is no pelvic mass lesion or lymphadenopathy. Normal visualized pelvic arteries. Vascular calcifications. Umbilical hernia containing fat. There are diffuse degenerative changes of the visualized lumbar spine. CT/Pelvis without IV Contrast IMPRESSION: Fracture of the right sacral ala. Fracture of the right acetabulum. Fractures right superior and inferior pubic ramus. Electronically Signed: Rubén Casarez MD at 18:30 EDT Reading Location ID and State: [facility] / [place] , Service support ,
--- NOTE | 2023-11-27 17:50 | RAD_ITS ---
EXAM: XR RIGHT SHOULDER COMPLETE, 2 OR MORE VIEWS CLINICAL INDICATION: fall TECHNIQUE: Two or more views of the right shoulder. COMPARISON: No relevant prior studies available. FINDINGS: BONES/JOINTS: Nondisplaced fracture of the distal right clavicle. Degenerative findings of the right shoulder. No sclerotic or destructive changes observed. SOFT TISSUES: Unremarkable. No soft tissue swelling or gas. No radiopaque foreign body. RAD/Shoulder min 2 Views IMPRESSION: 1. Nondisplaced fracture of the distal right clavicle. 2. Degenerative findings of the right shoulder. Electronically Signed: Rubén Casarez MD at 18:16 EDT ,
--- NOTE | 2023-11-27 18:00 | RAD_ITS ---
EXAM: XR RIGHT HIP WITH PELVIS WHEN PERFORMED, 4 OR MORE VIEWS CLINICAL INDICATION: hip pain TECHNIQUE: Four or more views of the right hip with pelvis when performed. COMPARISON: No relevant prior studies available. FINDINGS: BONES/JOINTS: Fracture of the right superior and inferior pubic ramus. Total right hip arthroplasty. Degenerative findings in the left hip. Metal hardware of the left hip. Degenerative findings in the lumbar spine. No destructive or sclerotic lesions. Note that overlapping bowel shadows may however obscure fine detail. Sacroiliac joint is unremarkable. No widening of the pubic symphysis. SOFT TISSUES: Unremarkable. No soft tissue swelling or gas. VASCULATURE: Vascular calcifications. RAD/HIP, UNI W/ Pelvis 2-3 Views IMPRESSION: 1. Fracture of the right superior and inferior pubic ramus. 2. Degenerative findings in the left hip. Electronically Signed: Rubén Casarez MD at 18:23 EDT ,
[2023-11-27 18:05] LABS: Absolute Lymphocyte Count 0.79 X10^3/uL (0.83-4.51); Basophil# 0.07 X10^3/uL; Basophil% 0.7 % (0-1); Eosinophil# 0.21 X10^3/uL; Eosinophils% 2.1 % (0-5); Hematocrit 38.7 % (37-47); Hemoglobin 12.2 g/dL (12.0-15.0); Lymphocyte # 0.79 X10^3/ul (0.83-4.51); Mean Corp Hgb Conc 31.5 g/dL (32-36); Mean Corpuscular Hgb 30.4 pg (27.0-32.0); Mean Corpuscular Volume 96.5 fL (81-99); Mean Platelet Vol. 10.3 fl (6.2-12.0); Monocyte# 0.62 X10^3/uL; Monocyte% 6.3 % (0-10); NRBC Flagged by Analyzer 0 % (0-5); Neutrophil # 8.03 X10^3/uL (2.7-7.7); Neutrophil % 81.5 % (47-70); Platelet Count 208 K/mm3 (150-450); RBC Distribution Width CV 12.8 % (11.6-14.6); RBC Distribution Width SD 45.7 fl (35.1-43.9); Red Blood Count 4.01 M/mm3 (4.2-5.4); White Blood Count 9.9 K/mm3 (4.4-11.0)
[2023-11-27 18:13] LABS: Anion Gap 5 (5-15); BUN 25 mg/dL (7-18); BUN/Creat Ratio 29.6 RATIO (10-20); Calcium,Total 8.9 mg/dL (8.5-10.1); Chloride 108 mmol/L (98-107); Creatinine, Serum 0.85 mg/dL (0.55-1.02); EST Glomerular Filtration Rate 68 mL/min (>60); Est Glom Filt Rate - Afr Amer 82 mL/min (>60); Estimated Creatinine Clearance 47.04 ml/min; Glucose 125 mg/dL (74-106); Potassium 4.2 mmol/L (3.5-5.1); Sodium Level 139 mmol/L (136-145)
--- NOTE | 2023-11-27 18:40 | CON.PCM.OR_ITS ---
HPI Consult Data Date of Consult: 11/27/23 HPI Narrative HPI Narrative: MARISA SANTIAGO, is a 88 F who presents with a ground level fall, called by the ED today at 638pm. Xray and CT pelvis shows insufficency fracture R sup and inf pubic rami around well fixed KAY and non displaced R clavicle fracture. Unable to ambulate. [facility] Medical History (Updated 11/27/23 @ 18:41 by Miguel Angel Arreola MD) Abnormal urinalysis Acquired hypothyroidism Allergies Anemia Anxiety and depression Arthritis Asthma Atrial fibrillation BRBPR (bright red blood per rectum) Cardiology follow-up encounter Carpal tunnel syndrome Closed head injury Complete heart block Concussion Delayed wound healing Dementia Edema leg Essential (primary) hypertension Fall Flu vaccine need Fracture of metacarpal base, first, right hand, closed Fracture of right inferior pubic ramus Fracture of right superior pubic ramus GI bleed Goiter Hearing problem History of GI bleed History of IBS History of stress test Hyperlipidemia Hypertension Hypothyroidism Malnutrition Memory impairment Microscopic colitis Microscopic colitis Mild intermittent asthma Non-smoker Nonrheumatic mitral valve insufficiency Open wound of left ring finger Osteoarthritis Pacemaker lead malfunction Parathyroid disorder Periorbital edema of left eye Persistent atrial fibrillation Personal history of colonic polyps Post-menopausal Rheumatoid arthritis Right clavicle fracture Sick sinus syndrome Stroke/cerebrovascular accident Thyroid storm Ulcer of left lower extremity with fat layer exposed Ulcer of right lower extremity with fat layer exposed Venous insufficiency 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 Wears glasses Home Medications [id number] 0.4 mg-calcium 162 mg-iron 18 [id number] tablet 1 ea PO DAILY supplement 06/03/19 [History Last Taken 04/25/21 08:31] acetaminophen 325 mg capsule (Tylenol) 650 mg PO ONCE PRN Pain 10/07/22 [History Last Taken Unknown] apixaban 2.5 mg tablet (Eliquis) 2.5 mg PO BID blood thinner #180 tabs 11/24/22 [Rx Last Taken Unknown] budesonide 90 mcg/actuation breath activated powder inhaler 1 inh inhalation BID PRN shortness of breath or wheezing 03/14/23 [History Last Taken Unknown] biotin 500 mcg capsule 1 mg PO DAILY supplement 03/25/23 [History Last Taken Unknown] donepezil 5 mg tablet 5 mg PO QHS memory #90 tabs 04/07/23 [Rx Last Taken Unknown] metoprolol tartrate 25 mg tablet 25 mg PO BID BP #180 tabs 06/20/23 [Rx Last Taken Unknown] ferrous sulfate 325 mg (65 mg iron) tablet (FeroSul) See Rx Instructions .Route .COMPLEX supplement #90 TABLETS 06/27/23 [Rx Last Taken Unknown] escitalopram oxalate 5 mg tablet 5 mg PO DAILY anxiety #90 tabs 07/18/23 [Rx Last Taken Unknown] meclizine 25 mg tablet 25 mg PO BID PRN dizziness #90 tabs 07/18/23 [Rx Last Taken Unknown] levothyroxine 112 mcg tablet 112 mcg PO DAILY thyroid 11/09/23 [History Last Taken Unknown] Allergy/AdvReac Type Severity Reaction Status Date / Time Environmental Allergies: Allergy Mild sneezing Verified 11/27/23 16:57 Uncoded latex AdvReac Itching Verified 11/27/23 16:57 sulfamethoxazole AdvReac Nausea Verified 11/27/23 16:57 [From Bactrim] trimethoprim [From Bactrim] AdvReac Nausea Verified 11/27/23 16:57 Family History Father CAD (coronary artery disease) Brother Cancer Leukemia Brother Epilepsy Mother Colon cancer Other CVA (cerebral vascular accident) Diabetes Surgical History (Updated 11/17/23 @ 00:01 by Katrin Perez) H/O thyroidectomy H/O thyroidectomy History of knee replacement History of permanent cardiac pacemaker placement History of right hip replacement Social History household members: none Smoking Status: Never smoker alcohol intake: never substance use type: does not use caffeine: Yes Type: tea Number of servings: 1 what type of physical activity do you participate in: other details: [employer] Int Vital Signs Vital Signs Vital Signs: 11/27/23 16:56 11/27/23 16:56 Temperature 97.6 F L Temperature Source Oral Pulse Rate 70 Respiratory Rate 16 Respiratory Effort Normal Non-Labored Respiratory Depth Normal Respiratory Pattern Normal Blood Pressure 133/59 H Blood Pressure Mean 83 Pulse Ox 95 Oxygen Delivery Method Room Air Room Air Weight Weight: 161 lb 13.109 oz Body Mass Index (BMI) 24.5 Lab / Micro Data 11/27/23 17:51 11/27/23 17:51 Labs: Laboratory Results - last 24 hr 11/27/23 17:51: WBC 9.9, RBC 4.01 L, Hgb 12.2, Hct 38.7, MCV 96.5, MCH 30.4, MCHC 31.5 L, RDW Std Deviation 45.7 H, RDW Coeff of Radha 12.8, Plt Count 208, MPV 10.3, Immature Gran % (Auto) 1.400 H, Neut % (Auto) 81.5 H, Lymph % (Auto) 8.0 L , Gooding % (Auto) 6.3, Eos % (Auto) 2.1, Baso % (Auto) 0.7, Absolute Neuts (auto) 8.0 H, Absolute Lymphs (auto) 0.79 L, Nucleated RBC % 0, Sodium 139, Potassium 4.2, Chloride 108 H, Carbon Dioxide 26.0, Anion Gap 5, BUN 25 H, Creatinine 0.85, Estim Creat Clear Calc 47.04, Est GFR (MDRD) Af Amer 82, Est GFR (MDRD) Non-Af 68, BUN/Creatinine Ratio 29.6 H, Glucose 125 H, Calcium 8.9 Imaging Radiology Impression Brain CT 11/27/23 17:26 IMPRESSION: There are no acute findings. Chronic involutional changes of the brain. Electronically Signed: Rubén Casarez MD at 18:17 EDT , Pelvis CT 11/27/23 17:30 IMPRESSION: Fracture of the right sacral ala. Fracture of the right acetabulum. Fractures right superior and inferior pubic ramus. Electronically Signed: Rubén Casarez MD at 18:30 EDT , Shoulder X-Ray 11/27/23 17:50 IMPRESSION: 1. Nondisplaced fracture of the distal right clavicle. 2. Degenerative findings of the right shoulder. Electronically Signed: Rubén Casarez MD at 18:16 EDT , Hip/Pelvis X-Ray 11/27/23 18:00 IMPRESSION: 1. Fracture of the right superior and inferior pubic ramus. 2. Degenerative findings in the left hip. Electronically Signed: Rubné Casarez MD at 18:23 EDT , Assessment & Plan Assessment/Plan (1) Fracture of right inferior pubic ramus: PLAN: 88 yr F with R rami fractures and non displaced R clavicle fracture. Recommend WBAT R LE and sling R arm for comfort, both non operative issues. Admit under the hospitalist, will see the patient tomorrow. (2) Fracture of right superior pubic ramus: (3) Right clavicle fracture:
--- NOTE | 2023-11-27 18:46 | EX.ED.DYSGE1 ---
HPI <ELIJAH Jorgensen - Last Filed: 11/27/23 18:56> History of Present Illness Chief Complaint: Fall Narrative Narrative: Patient is a 88-year-old female with history of dementia, atrial fibrillation on Eliquis, hyperlipidemia, history of stroke who presents the emergency department after mechanical fall. Patient lives alone, a neighbor does come and assist her when needed. Patient was walking trying to get up 1 step into her kitchen when she fell landing on her right side. Patient states she was unable to get up and had to call the ambulance. Patient is unsure if she struck her head or not. Patient denies any recent illnesses. Patient remembers falling. [facility] <ELIJAH Jorgensen - Last Filed: 11/27/23 18:56> [facility] Medical History (Updated 11/27/23 @ 18:56 by ELIJAH Jorgensen) Abnormal urinalysis Acquired hypothyroidism Allergies Anemia Anxiety and depression Arthritis Asthma Atrial fibrillation BRBPR (bright red blood per rectum) Cardiology follow-up encounter Carpal tunnel syndrome Closed head injury Complete heart block Concussion Delayed wound healing Dementia Edema leg Essential (primary) hypertension Fall Flu vaccine need Fracture of metacarpal base, first, right hand, closed Fracture of right inferior pubic ramus Fracture of right superior pubic ramus GI bleed Goiter Hearing problem History of GI bleed History of IBS History of stress test Hyperlipidemia Hypertension Hypothyroidism Malnutrition Memory impairment Microscopic colitis Microscopic colitis Mild intermittent asthma Non-smoker Nonrheumatic mitral valve insufficiency Open wound of left ring finger Osteoarthritis Pacemaker lead malfunction Parathyroid disorder Periorbital edema of left eye Persistent atrial fibrillation Personal history of colonic polyps Post-menopausal Rheumatoid arthritis Right clavicle fracture Sick sinus syndrome Stroke/cerebrovascular accident Thyroid storm Ulcer of left lower extremity with fat layer exposed Ulcer of right lower extremity with fat layer exposed Venous insufficiency 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 Wears glasses Home Medications [id number] 0.4 mg-calcium 162 mg-iron 18 [id number]-[id number]-[id number] tablet 1 ea PO DAILY supplement 06/03/19 [History Last Taken 04/25/21 08:31] acetaminophen 325 mg capsule (Tylenol) 650 mg PO ONCE PRN Pain 10/07/22 [History Last Taken Unknown] apixaban 2.5 mg tablet (Eliquis) 2.5 mg PO BID blood thinner #180 tabs 11/24/22 [Rx Last Taken Unknown] budesonide 90 mcg/actuation breath activated powder inhaler 1 inh inhalation BID PRN shortness of breath or wheezing 03/14/23 [History Last Taken Unknown] biotin 500 mcg capsule 1 mg PO DAILY supplement 03/25/23 [History Last Taken Unknown] donepezil 5 mg tablet 5 mg PO QHS memory #90 tabs 04/07/23 [Rx Last Taken Unknown] metoprolol tartrate 25 mg tablet 25 mg PO BID BP #180 tabs 06/20/23 [Rx Last Taken Unknown] ferrous sulfate 325 mg (65 mg iron) tablet (FeroSul) See Rx Instructions .Route .COMPLEX supplement #90 TABLETS 06/27/23 [Rx Last Taken Unknown] escitalopram oxalate 5 mg tablet 5 mg PO DAILY anxiety #90 tabs 07/18/23 [Rx Last Taken Unknown] meclizine 25 mg tablet 25 mg PO BID PRN dizziness #90 tabs 07/18/23 [Rx Last Taken Unknown] levothyroxine 112 mcg tablet 112 mcg PO DAILY thyroid 11/09/23 [History Last Taken Unknown] Allergy/AdvReac Type Severity Reaction Status Date / Time Environmental Allergies: Allergy Mild sneezing Verified 11/27/23 16:57 Uncoded latex AdvReac Itching Verified 11/27/23 16:57 sulfamethoxazole AdvReac Nausea Verified 11/27/23 16:57 [From Bactrim] trimethoprim [From Bactrim] AdvReac Nausea Verified 11/27/23 16:57 Family History Father CAD (coronary artery disease) Brother Cancer Leukemia Brother Epilepsy Mother Colon cancer Other CVA (cerebral vascular accident) Diabetes Surgical History (Updated 11/17/23 @ 00:01 by Katrin Perez) H/O thyroidectomy H/O thyroidectomy History of knee replacement History of permanent cardiac pacemaker placement History of right hip replacement Social History household members: none Smoking Status: Never smoker alcohol intake: never substance use type: does not use caffeine: Yes Type: tea Number of servings: 1 what type of physical activity do you participate in: other details: [employer] ROS <ELIJAH Jorgensen - Last Filed: 11/27/23 18:56> ROS ED ROS Narrative Constitutional: Negative for fever, chills, weight loss, weakness Eyes: Negative for vision loss, vision change, double vision ENT: Negative for any sore throat, ear pain, congestion Cardiovascular: Negative for any chest pain, tightness, palpitations Respiratory: Negative for any cough, sputum production, hemoptysis, dyspnea, dyspnea on exertion, orthopnea Gastrointestinal: Negative for any abdominal pain, nausea, vomiting, diarrhea, constipation, blood in stool, blood in vomit : Negative for any urinary frequency, dysuria, retention, blood in urine Muscle skeletal: Negative for any neck pain, back pain. Positive for pelvic pain, right shoulder pain Neurological: Negative for any headache, syncope, dizziness Skin: Negative for any rashes, itching, abrasions, lacerations Psychiatric: Negative for any depression, anxiety, stress, suicidal ideation, homicidal ideation Hematologic: Negative for any excessive bruising, easy bleeding EXAM <Curtis Rain NP-Khari - Last Filed: 11/27/23 18:56> Physical Exam Narrative Exam Narrative: Vital signs reviewed. HEET: Head normocephalic atraumatic, TMs clear bilaterally. Posterior pharynx is clear, moist mucous membranes. Nares clear bilaterally. Pupils are equal round reactive to light. Negative for any hemotympanum or septal hematoma. Neck: Supple with no lymphadenopathy or tenderness. No signs of meningismus. Cardiac: Regular rate and rhythm no murmurs gallops or rubs, equal peripheral pulses bilaterally. Respiratory: Lungs clear to auscultation bilaterally. No chest tenderness. Abdomen: Soft, nontender, nondistended. No abdominal bruit or pulsatile masses. No hepatosplenomegaly Extremities:patient is able to flex and extend at the knees bilaterally. 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 Patient does have pain with palpation to the right clavicular area as well as the right shoulder. Decreased range of motion. Neuro: Cranial nerves II through XII intact, no focal neurological deficits. Skin: Clean dry and intact with no rash, purpura, petechiae, vesicles or pustules. Backs/flank: No CVA tenderness, no midline spinal tenderness, no deformity. Psych: Normal mood and affect. No SI, HI or acute psychosis. Const Vital Signs: 11/27/23 16:56 11/27/23 16:56 Temperature 97.6 F L Temperature Source Oral Pulse Rate 70 Respiratory Rate 16 Respiratory Effort Normal Non-Labored Respiratory Depth Normal Respiratory Pattern Normal Blood Pressure 133/59 H Blood Pressure Mean 83 Pulse Ox 95 Oxygen Delivery Method Room Air Room Air <Dr. Feng Loomis DO - Last Filed: 11/27/23 19:49> Physical Exam Const Vital Signs: 11/27/23 16:56 11/27/23 16:56 Temperature 97.6 F L Temperature Source Oral Pulse Rate 70 Respiratory Rate 16 Respiratory Effort Normal Non-Labored Respiratory Depth Normal Respiratory Pattern Normal Blood Pressure 133/59 H Blood Pressure Mean 83 Pulse Ox 95 Oxygen Delivery Method Room Air Room Air MDM <ELIJAH Jorgensen - Last Filed: 11/27/23 18:56> MDM Lab Data Labs: Laboratory Results - last 24 hr 11/27/23 17:51 WBC 9.9 RBC 4.01 L Hgb 12.2 Hct 38.7 MCV 96.5 MCH 30.4 MCHC 31.5 L RDW Std Deviation 45.7 H RDW Coeff of Radha 12.8 Plt Count 208 MPV 10.3 Immature Gran % (Auto) 1.400 H Neut % (Auto) 81.5 H Lymph % (Auto) 8.0 L Cottle % (Auto) 6.3 Eos % (Auto) 2.1 Baso % (Auto) 0.7 Absolute Neuts (auto) 8.0 H Absolute Lymphs (auto) 0.79 L Nucleated RBC % 0 Sodium 139 Potassium 4.2 Chloride 108 H Carbon Dioxide 26.0 Anion Gap 5 BUN 25 H Creatinine 0.85 Estim Creat Clear Calc 47.04 Est GFR (MDRD) Af Amer 82 Est GFR (MDRD) Non-Af 68 BUN/Creatinine Ratio 29.6 H Glucose 125 H Calcium 8.9 Radiography Diagnostic Testing: Clinical Impression(s) from Imaging Studies Brain CT 11/27/23 17:26 IMPRESSION: There are no acute findings. Chronic involutional changes of the brain. Electronically Signed: Rubén Casarez MD at 18:17 EDT , Cervical Spine CT 11/27/23 17:26 IMPRESSION: Degenerative changes of the cervical spine. There are no acute findings. Electronically Signed: Rubén Casarez MD at 18:39 EDT , Pelvis CT 11/27/23 17:30 IMPRESSION: Fracture of the right sacral ala. Fracture of the right acetabulum. Fractures right superior and inferior pubic ramus. Electronically Signed: Rubén Casarez MD at 18:30 EDT , Shoulder X-Ray 11/27/23 17:50 IMPRESSION: 1. Nondisplaced fracture of the distal right clavicle. 2. Degenerative findings of the right shoulder. Electronically Signed: Rubén Casarez MD at 18:16 EDT , Hip/Pelvis X-Ray 11/27/23 18:00 IMPRESSION: 1. Fracture of the right superior and inferior pubic ramus. 2. Degenerative findings in the left hip. Electronically Signed: Rubén Casarez MD at 18:23 EDT , Treatment and Re-Evaluation :: Patient appears to be in no obvious respiratory distress, patient presents to the emerged part with complaints of right sided hip pain, right shoulder pain. Differential diagnosis includes however is not limited to: Right hip fracture, pelvis fracture, right hip contusion, shoulder fracture, shoulder dislocation, concussion, intracranial bleeding. Patient did receive some basic laboratory values, CBC was unremarkable, chemistry was mostly unremarkable and unchanged. Patient's shoulder x-ray interpreted by ER physician shows nondisplaced fractures of the distal right clavicle. Degenerative findings of the shoulder. Patient CT scan of the brain and cervical spine were unremarkable. No acute fracture or intracranial bleeding. CT scan of the pelvis shows a fracture of the right sacral ala, fracture of the right acetabulum, fractures right superior and inferior pubic ramus. Secondary to these fractures, and Walker will be placed. I spoke with the patient, offered analgesic pain medicine, she states as long she does not move she is not in pain. I do believe the patient needs to be admitted to hospital, she lives alone, she cannot ambulate and she has no one to care for her. I reached out to the hospitalist who is agreement. All questions answered, patient stable for admission. <Dr. Feng Loomis, DO - Last Filed: 11/27/23 19:49> [facility] Narrative Medical decision making narrative: Patient appears to be in no obvious respiratory distress, patient presents to the emerged part with complaints of right sided hip pain, right shoulder pain. Differential diagnosis includes however is not limited to: Right hip fracture, pelvis fracture, right hip contusion, shoulder fracture, shoulder dislocation, concussion, intracranial bleeding. Patient did receive some basic laboratory values, CBC was unremarkable, chemistry was mostly unremarkable and unchanged. Patient's shoulder x-ray interpreted by ER physician shows nondisplaced fractures of the distal right clavicle. Degenerative findings of the shoulder. Patient CT scan of the brain and cervical spine were unremarkable. No acute fracture or intracranial bleeding. CT scan of the pelvis shows a fracture of the right sacral ala, fracture of the right acetabulum, fractures right superior and inferior pubic ramus. Secondary to these fractures, and Walker will be placed. I spoke with the patient, offered analgesic pain medicine, she states as long she does not move she is not in pain. I do believe the patient needs to be admitted to hospital, she lives alone, she cannot ambulate and she has no one to care for her. I reached out to the hospitalist who is agreement. All questions answered, patient stable for admission. 88-year-old female presenting with right shoulder pain and right hip pain. She had a mechanical fall at home. She is on Eliquis. She is able to ambulate. CT brain and cervical spine were negative. Lab workup was unremarkable. X-rays of the right hip on my interpretation shows superior and inferior pubic rami fracture. Radiology interprets this and agrees. X-rays of the right shoulder show a distal clavicular fracture on my interpretation and radiology interprets this and agrees. CT of the pelvis was obtained and shows fracture of the right sacral eileen, right acetabulum, right superior and inferior pubic ramus. Discussed with orthopedics who states the patient can stay here at [facility] and she will likely need placement into facility as she is not able to ambulate and also has a broken clavicle which prevents her from using a walker, cane, crutches at this point. Patient amenable to this. She mentions admission. Impression: 1. Fall 2. Right clavicle fracture 3. Right superior pubic rami fracture 4. Right inferior pubic rami fracture 5. Sacral alae fracture 6. Right acetabular fracture Lab Data Attestation: I reviewed the patient's lab results. Labs: Laboratory Results - last 24 hr 11/27/23 17:51 WBC 9.9 RBC 4.01 L Hgb 12.2 Hct 38.7 MCV 96.5 MCH 30.4 MCHC 31.5 L RDW Std Deviation 45.7 H RDW Coeff of Radha 12.8 Plt Count 208 MPV 10.3 Immature Gran % (Auto) 1.400 H Neut % (Auto) 81.5 H Lymph % (Auto) 8.0 L Cottle % (Auto) 6.3 Eos % (Auto) 2.1 Baso % (Auto) 0.7 Absolute Neuts (auto) 8.0 H Absolute Lymphs (auto) 0.79 L Nucleated RBC % 0 Sodium 139 Potassium 4.2 Chloride 108 H Carbon Dioxide 26.0 Anion Gap 5 BUN 25 H Creatinine 0.85 Estim Creat Clear Calc 47.04 Est GFR (MDRD) Af Amer 82 Est GFR (MDRD) Non-Af 68 BUN/Creatinine Ratio 29.6 H Glucose 125 H Calcium 8.9 Radiography Diagnostic Testing: Clinical Impression(s) from Imaging Studies Brain CT 11/27/23 17:26 IMPRESSION: There are no acute findings. Chronic involutional changes of the brain. Electronically Signed: Rubén Casarez MD at 18:17 EDT , Cervical Spine CT 11/27/23 17:26 IMPRESSION: Degenerative changes of the cervical spine. There are no acute findings. Electronically Signed: Rubén Casarez MD at 18:39 EDT , Pelvis CT 11/27/23 17:30 IMPRESSION: Fracture of the right sacral ala. Fracture of the right acetabulum. Fractures right superior and inferior pubic ramus. Electronically Signed: Rubén Casarez MD at 18:30 EDT , Shoulder X-Ray 11/27/23 17:50 IMPRESSION: 1. Nondisplaced fracture of the distal right clavicle. 2. Degenerative findings of the right shoulder. Electronically Signed: Rubén Casarez MD at 18:16 EDT , Hip/Pelvis X-Ray 11/27/23 18:00 IMPRESSION: 1. Fracture of the right superior and inferior pubic ramus. 2. Degenerative findings in the left hip. Electronically Signed: Rubén Casarez MD at 18:23 EDT , Discharge Plan Dx/Rx/DC Orders Clinical Impression: Fracture, pelvis closed, Fall, Clavicle fracture Disposition Disposition: Acute Care Hospital [facility]
[2023-11-27 18:56] VITALS: BP 139/73; PULSE 70; RESP 17; TEMP 36.4; O2SAT 95
--- NOTE | 2023-11-27 19:33 | PCM.HP.STD ---
HPI - General General Date of Admission: 11/27/23 Date of Service: 11/27/23 Chief Complaint: Acute fall HPI Narrative MARISA SANTIAGO, is a 88 F who presents to the ED after falling from standing height this evening. She has a past medical history of CVA, hypothyroidism, persistent atrial fibrillation, complete heart block s/p permanent pacemaker, nonrheumatic mitral valve insufficiency, essential hypertension. She fell from ground-level today around 530, and developed pain on the right shoulder and also was not able to move her right thigh. X-ray and CT pelvis in the ED showed insufficiency and right superior inferior pubic rami fracture along with nondisplaced right clavicle fracture. Orthopedic opinion was sought, no surgical intervention is indicated She is now being admitted for rehabilitation as she lives by herself and would not be able to take care of her activities of daily living at home. [facility] Medical History (Updated 11/27/23 @ 18:56 by ELIJAH Jorgensen) Abnormal urinalysis Acquired hypothyroidism Allergies Anemia Anxiety and depression Arthritis Asthma Atrial fibrillation BRBPR (bright red blood per rectum) Cardiology follow-up encounter Carpal tunnel syndrome Closed head injury Complete heart block Concussion Delayed wound healing Dementia Edema leg Essential (primary) hypertension Fall Flu vaccine need Fracture of metacarpal base, first, right hand, closed Fracture of right inferior pubic ramus Fracture of right superior pubic ramus GI bleed Goiter Hearing problem History of GI bleed History of IBS History of stress test Hyperlipidemia Hypertension Hypothyroidism Malnutrition Memory impairment Microscopic colitis Microscopic colitis Mild intermittent asthma Non-smoker Nonrheumatic mitral valve insufficiency Open wound of left ring finger Osteoarthritis Pacemaker lead malfunction Parathyroid disorder Periorbital edema of left eye Persistent atrial fibrillation Personal history of colonic polyps Post-menopausal Rheumatoid arthritis Right clavicle fracture Sick sinus syndrome Stroke/cerebrovascular accident Thyroid storm Ulcer of left lower extremity with fat layer exposed Ulcer of right lower extremity with fat layer exposed Venous insufficiency 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 Wears glasses Home Medications [id number] 0.4 mg-calcium 162 mg-iron 18 [id number] tablet 1 ea PO DAILY supplement 06/03/19 [History Last Taken 04/25/21 08:31] acetaminophen 325 mg capsule (Tylenol) 650 mg PO ONCE PRN Pain 10/07/22 [History Last Taken Unknown] apixaban 2.5 mg tablet (Eliquis) 2.5 mg PO BID blood thinner #180 tabs 11/24/22 [Rx Last Taken Unknown] budesonide 90 mcg/actuation breath activated powder inhaler 1 inh inhalation BID PRN shortness of breath or wheezing 03/14/23 [History Last Taken Unknown] biotin 500 mcg capsule 1 mg PO DAILY supplement 03/25/23 [History Last Taken Unknown] donepezil 5 mg tablet 5 mg PO QHS memory #90 tabs 04/07/23 [Rx Last Taken Unknown] metoprolol tartrate 25 mg tablet 25 mg PO BID BP #180 tabs 06/20/23 [Rx Last Taken Unknown] ferrous sulfate 325 mg (65 mg iron) tablet (FeroSul) See Rx Instructions .Route .COMPLEX supplement #90 TABLETS 06/27/23 [Rx Last Taken Unknown] escitalopram oxalate 5 mg tablet 5 mg PO DAILY anxiety #90 tabs 07/18/23 [Rx Last Taken Unknown] meclizine 25 mg tablet 25 mg PO BID PRN dizziness #90 tabs 07/18/23 [Rx Last Taken Unknown] levothyroxine 112 mcg tablet 112 mcg PO DAILY thyroid 11/09/23 [History Last Taken Unknown] Allergy/AdvReac Type Severity Reaction Status Date / Time Environmental Allergies: Allergy Mild sneezing Verified 11/27/23 16:57 Uncoded latex AdvReac Itching Verified 11/27/23 16:57 sulfamethoxazole AdvReac Nausea Verified 11/27/23 16:57 [From Bactrim] trimethoprim [From Bactrim] AdvReac Nausea Verified 11/27/23 16:57 Family History Father CAD (coronary artery disease) Brother Cancer Leukemia Brother Epilepsy Mother Colon cancer Other CVA (cerebral vascular accident) Diabetes Surgical History (Updated 11/17/23 @ 00:01 by Katrin Perez) H/O thyroidectomy H/O thyroidectomy History of knee replacement History of permanent cardiac pacemaker placement History of right hip replacement Social History household members: none Smoking Status: Never smoker alcohol intake: never substance use type: does not use caffeine: Yes Type: tea Number of servings: 1 what type of physical activity do you participate in: other details: [employer] ROS Review of Systems ROS Unobtainable: Denies due to encephalopathy, due to endotracheal tube, due to mental condition, due to mental status or other Constitutional Constitutional: Denies anorexia, change in weight, chills, fatigue, fever(s), malaise, night sweats, weakness or other Eyes Eyes: Denies blurry vision, change in eye color, change in vision, discharge from eye(s), double vision, erythema, eye pain, loss of vision or other ENT HEENT: Denies abnormal hearing, dysphagia, ear pain, epistaxis, headache(s), hearing loss, nasal congestion, nasal discharge, post nasal drip, sinus pressure, sore throat or other Cardiovascular Cardiovascular: Denies chest pain, claudication, dyspnea on exertion, edema, lightheadedness, orthopnea, palpitations, paroxysmal nocturnal dyspnea, rapid heart rate, syncope or other Respiratory/Chest Respiratory/Chest: Denies cough, dyspnea, excessive phlegm production, hemoptysis, productive cough, shortness of breath at rest, shortness of breath with exertion, wheezing or other Gastrointestinal Gastrointestinal: Denies abdominal pain, coffee ground emesis, constipation, diarrhea, dyspepsia, hematemesis, hematochezia, loose stools, melena, nausea, vomiting or other Musculoskeletal Musculoskeletal: Reports joint pain, joint stiffness and joint swelling; Denies arthralgias, back pain, myalgias, neck pain or other Neurologic Neurologic: Denies abnormal gait, abnormal speech, confusion, disequilibrium, dizziness, focal weakness, headache(s), numbness, paresthesias, seizure-like activity, seizures, syncope, tingling, tremor(s) or other Psychiatric Psychiatric: Denies anxiety, depression, homicidal ideation, suicidal ideation or other Endocrine Endocrinology: Denies change in body appearance, cold intolerance, excessive sweating, heat intolerance, polydipsia, polyuria or other Hematologic/Lymphatic Hematologic/Lymphatic: Denies anemia, easy bleeding, easy bruising, lymphadenopathy or other Allergic/Immunologic Allergic/Immunologic: Denies rhinitis, hives, eczemia, asthma or other Vital Signs Vital Signs Vital Signs: 11/27/23 16:56 11/27/23 16:56 11/27/23 18:56 Temperature 97.6 F L 97.6 F L Temperature Source Oral Pulse Rate 70 70 Respiratory Rate 16 17 Respiratory Effort Normal Non-Labored Respiratory Depth Normal Respiratory Pattern Normal Blood Pressure 133/59 H 139/73 H Blood Pressure Mean 83 95 Pulse Ox 95 95 Oxygen Delivery Method Room Air Room Air Weight Weight: 161 lb 13.109 oz Body Mass Index (BMI) 24.5 Physical Exam Const alert and oriented x3 Constitutional Narrative: States pain is bearable, worsens with movement HEENT normocephalic, head/scalp atraumatic, hearing grossly normal bilaterally, moist oral mucous membranes, oropharynx normal and dentition normal Eyes PERRL Neck no lymphadenopathy and supple Resp normal respiratory effort and no retractions Cardio regular rate, regular rhythm, S1 normal heart sound, S2 normal heart sound, no murmurs, no rub, no gallops, no clicks and no JVD GI normal to inspection, nondistended, normoactive bowel sounds, soft to palpation, non-tender, non-distended and hepatosplenomegaly Extremity Extremity Narrative: Not able to move her right hip joint due to pain. Localized tenderness present over her right clavicle. Neuro oriented x3 Psych affect normal Results Medical Records Data Attestation: I reviewed the patient's medical records Lab / Micro Data Attestation: I reviewed the patient's lab results. 11/27/23 17:51 11/27/23 17:51 Labs: Laboratory Results - last 24 hr 11/27/23 17:51: WBC 9.9, RBC 4.01 L, Hgb 12.2, Hct 38.7, MCV 96.5, MCH 30.4, MCHC 31.5 L, RDW Std Deviation 45.7 H, RDW Coeff of Radha 12.8, Plt Count 208, MPV 10.3, Immature Gran % (Auto) 1.400 H, Neut % (Auto) 81.5 H, Lymph % (Auto) 8.0 L, [place] % (Auto) 6.3, Eos % (Auto) 2.1, Baso % (Auto) 0.7, Absolute Neuts (auto) 8.0 H, Absolute Lymphs (auto) 0.79 L, Nucleated RBC % 0, Sodium 139, Potassium 4.2, Chloride 108 H, Carbon Dioxide 26.0, Anion Gap 5, BUN 25 H, Creatinine 0.85, Estim Creat Clear Calc 47.04, Est GFR (MDRD) Af Amer 82, Est GFR (MDRD) Non-Af 68, BUN/Creatinine Ratio 29.6 H, Glucose 125 H, Calcium 8.9 Imaging Radiology Impression Brain CT 11/27/23 17:26 IMPRESSION: There are no acute findings. Chronic involutional changes of the brain. Electronically Signed: Rubén Casarez MD at 18:17 EDT , Cervical Spine CT 11/27/23 17:26 IMPRESSION: Degenerative changes of the cervical spine. There are no acute findings. Electronically Signed: Rubén Casarez MD at 18:39 EDT , Pelvis CT 11/27/23 17:30 IMPRESSION: Fracture of the right sacral ala. Fracture of the right acetabulum. Fractures right superior and inferior pubic ramus. Electronically Signed: Rubén Casarez MD at 18:30 EDT , Shoulder X-Ray 11/27/23 17:50 IMPRESSION: 1. Nondisplaced fracture of the distal right clavicle. 2. Degenerative findings of the right shoulder. Electronically Signed: Rubén Casarez MD at 18:16 EDT , Hip/Pelvis X-Ray 11/27/23 18:00 IMPRESSION: 1. Fracture of the right superior and inferior pubic ramus. 2. Degenerative findings in the left hip. Electronically Signed: Rubén Casarez MD at 18:23 EDT , Assessment & Plan Assessment/Plan (1) Clavicle fracture: PLAN: Plan 88-year-old female with past medical history of A-fib, complete heart block s/p permanent pacemaker placement, mild dementia, prior GI bleed, prior CVA, presents to the ED following a fall and right hip fracture with clavicular fracture. She is being admitted for further inpatient management and for placement. #Multiple fractures following fall: -Orthopedic consult in the morning -Pain control with Tylenol -Will increase to opioids if the pain is not tolerable0 #Complete heart block s/p permanent pacemaker in place: Will order for a pacemaker check given the fall to rule out any dysfunction. #Prior CVA: Continue Eliquis 2.5 mg twice daily #Dementia: Continue donepezil 5 mg daily #Iron deficiency anemia: Continue ferrous sulfate 65 mg daily #Hypothyroidism: Continue levothyroxine 100 mcg #Hypertension: Hold beta-krystina in the setting of fall right now #DVT: High risk, she is already on Eliquis 2.5 mg we will continue the same, SCD Charges/Coding Visit Charges Inpatient E&M: 74587 Init Hosp L2
--- NOTE | 2023-11-27 19:59 | ED.RN ---
Discussed plan of care with son Obinna Quinn with pt permission. Per pt, son is allowed to receive updates on care.
[2023-11-27 20:12] VITALS: BMI 23.1
[2023-11-27 20:22] VITALS: BP 139/62; PULSE 70; RESP 17; TEMP 36.8; O2SAT 98
[2023-11-27] MEDS: Acetaminophen 500 MG Tablet 1000 MG PO (20:38)
[2023-11-27] MEDS: APIXABAN 2.5 MG TABLET (WCH) PO (20:38)
[2023-11-27] MEDS: Donepezil HCl 5 MG Tablet PO (20:40)
[2023-11-27] MEDS: oxyCODONE 5 MG Tablet PO (20:57)
[2023-11-28] VITALS (7 sets, daily range): BP systolic 98–116; BP diastolic 54–59; PULSE 64–89; RESP 16–20; TEMP 36.5–36.8; O2SAT 90–97
[2023-11-28] MEDS: oxyCODONE 5 MG Tablet PO ×4 (02:34→21:24)
[2023-11-28] MEDS: Acetaminophen 500 MG Tablet 1000 MG PO ×3 (05:30→21:25)
[2023-11-28] MEDS: Levothyroxine 112 MCG Tablet PO (05:30)
[2023-11-28 06:31] LABS: Absolute Lymphocyte Count 0.86 X10^3/uL (0.83-4.51); Basophil# 0.07 X10^3/uL; Basophil% 0.9 % (0-1); Eosinophil# 0.28 X10^3/uL; Eosinophils% 3.6 % (0-5); Hematocrit 34.1 % (37-47); Hemoglobin 10.5 g/dL (12.0-15.0); Lymphocyte # 0.86 X10^3/ul (0.83-4.51); Lymphocyte % 11.1 % (19-41); Mean Corp Hgb Conc 30.8 g/dL (32-36); Mean Corpuscular Hgb 29.5 pg (27.0-32.0); Mean Corpuscular Volume 95.8 fL (81-99); Mean Platelet Vol. 10.7 fl (6.2-12.0); Monocyte# 0.49 X10^3/uL; Monocyte% 6.3 % (0-10); NRBC Flagged by Analyzer 0 % (0-5); Neutrophil # 6.03 X10^3/uL (2.7-7.7); Neutrophil % 77.7 % (47-70); Platelet Count 168 K/mm3 (150-450); RBC Distribution Width CV 12.9 % (11.6-14.6); RBC Distribution Width SD 46.3 fl (35.1-43.9); Red Blood Count 3.56 M/mm3 (4.2-5.4); White Blood Count 7.8 K/mm3 (4.4-11.0)
[2023-11-28 06:44] LABS: International Normalized Ratio 1.4; Prothrombin Time (Protime)PT. 17.2 SECONDS (11.7-14.9)
[2023-11-28 07:03] LABS: ALB/GLOB Ratio 0.9 RATIO (0.9-2.4); AST(SGOT) 20 U/L (15-37); Alanine Aminotransfer ALT/SGPT 23 U/L (13-56); Alkaline Phosphatase 52 U/L (45-117); Anion Gap 4 (5-15); BUN 26 mg/dL (7-18); BUN/Creat Ratio 26.9 RATIO (10-20); Bilirubin, Direct 0.17 mg/dL (0.00-0.30); Calcium,Total 8.7 mg/dL (8.5-10.1); Chloride 108 mmol/L (98-107); Creatinine, Serum 0.97 mg/dL (0.55-1.02); EST Glomerular Filtration Rate 58 mL/min (>60); Est Glom Filt Rate - Afr Amer 70 mL/min (>60); Estimated Creatinine Clearance 41.22 ml/min; Globulin 3.2 g/dL (2.2-4.2); Glucose 107 mg/dL (74-106); Magnesium 2.2 mg/dL (1.6-2.6); Phosphorus 3.7 mg/dL (2.5-4.9); Potassium 4.1 mmol/L (3.5-5.1); Protein, Total 6.2 g/dL (6.4-8.2); Sodium Level 141 mmol/L (136-145); Thyroid Stim Hormone (TSH) 0.83 uIU/mL (0.358-3.74)
[2023-11-28] MEDS: Budesonide Respules 0.5 MG/2 ML AMPUL.NEB. INHALATION ×2 (07:11→18:58)
[2023-11-28] MEDS: Escitalopram Oxalate 10 MG Tablet 5 MG PO (08:42)
[2023-11-28] MEDS: Ferrous Sulfate 325 MG Tablet PO (08:42)
[2023-11-28] MEDS: APIXABAN 2.5 MG TABLET (WCH) PO ×2 (08:42→21:25)
--- NOTE | 2023-11-28 14:15 | CASEMGMT ---
SARA MALIK Assessment: Face to Face with pt for initial transition planning/care coordination assessment. SARA MALIK introduced self and role at [facility], pt voices understanding and consents to assessment. Pt is A&O x4 and answers all questions appropriately at this time. Pt sitting up in chair with cg Krupa at bedside. Pt agreeable to assessment with Krupa present. Care providers, pharmacy, and demographics verified/updated. Admitting Dx: hip fx PCP:Trell Specialists:Miguel cardio Bry Pharmacy: [facility] Insurance: [employer] Prescription Benefit: yes LNOK: Krupa Grace, cg; Phill Quinn, son Living Arrangements: Pt lives alone in a two story home with 3 steps to enter with a rail. Pt reports prior to this hospitalization she was I in ADL's. Pt denies concerns at home. [facility] visits for 3-4 hours per day to assist pt but reports she was pretty independent. Transportation: [facility] provides transportation for pt. DME:chairlift to second floor, rollator, walker HHC/SNF: Denies hx of [facility], has been to [facility] Pt reports being interested in staying at [facility] for therapy/rehab but does not want to go to a community SNF. She denies need for list of other options. Pt states no further concerns/needs. CM to follow. Advised pt to ask CM if any further question/concerns/needs arise, voices understanding. Krupa spoke with SARA MALKI outside pt room. She states pt does not have a good memory. She states this is what limits her. Pt Goal: Rehab at [facility] Plan: Updated SW for possible TCU Radha RUIZ CM
--- NOTE | 2023-11-28 14:36 | CHAPLAIN ---
Type of Pastoral Visit _x__ Initial Visit ___ Follow-up Visit ___ On-call Visit ___ General Patient Visit ___ Spiritual Assessment ___ Family Conference ___ Bereavement ___ Rapid Response ___ Code Blue ___ Other (describe below) Pastoral Care Referral From _x__ Patient ___ Family ___ Nurse ___ Physician ___ Patent Prosecution Attorney ___ Scallop Raker ___ Other (describe below) Sacrament/Intervention _x__ Active listening ___ Anointing ___ Zoroastrian ___ Bereavement ___ Communion ___ Mary exploration ___ ___ Life review _x__ Prayer ___ Reconciliation ___ Sacrament of Sick _x__ Supportive presence ___ Wedding ___ Other (describe below) Pastoral Comments patient is playing a game with her caregiver; caregiver says that pt has very little family support; pt herself acts with childlike modesto at playing the game and both admit that pt is having memory loss of immediate things; pt is given encouragement and mary from the Bible; pt states that she feels like she remembers this tool and gauge inspector but not sure who he is; pt is given information on this tool and gauge inspector and she acts like she knows; pt is pleasant and apparently is living in the moment as she is not is distress or expressing worries; prayer is welcomed for support
--- NOTE | 2023-11-28 16:08 | PN.ORTHO_ITS ---
Subjective Subjective PAD 1 patient in pain mostly the right hip, wondering how to call the nurse. no other concerns noted. Objective Data Objective Data Vital Signs: Vital Signs Temp Pulse Resp BP Pulse Ox O2 Del Method 98.1 F 70 18 102/55 L 94 Room Air 11/28/23 14:56 11/28/23 14:56 11/28/23 14:56 11/28/23 14:56 11/28/23 14:56 11/28/23 14:56 Oxygen Delivery Method Room Air Weight: 152 lb 8.958 oz Body Mass Index (BMI) 23.1 Intake & Output: Intake and Output for Last 24 Hours 11/26/23 11/27/23 11/28/23 23:59 23:59 23:59 Intake Total 200 / 200 120 / 120 Output Total 350 / 350 Balance 200 / 200 -230 / -230 Lab / Micro Data 11/28/23 06:05 11/28/23 06:05 Labs: Laboratory Results - last 24 hr 11/27/23 17:51: WBC 9.9, RBC 4.01 L, Hgb 12.2, Hct 38.7, MCV 96.5, MCH 30.4, MCHC 31.5 L, RDW Std Deviation 45.7 H, RDW Coeff of Radha 12.8, Plt Count 208, MPV 10.3, Immature Gran % (Auto) 1.400 H, Neut % (Auto) 81.5 H, Lymph % (Auto) 8.0 L , [place] % (Auto) 6.3, Eos % (Auto) 2.1, Baso % (Auto) 0.7, Absolute Neuts (auto) 8.0 H, Absolute Lymphs (auto) 0.79 L, Nucleated RBC % 0, Sodium 139, Potassium 4.2, Chloride 108 H, Carbon Dioxide 26.0, Anion Gap 5, BUN 25 H, Creatinine 0.85, Estim Creat Clear Calc 47.04, Est GFR (MDRD) Af Amer 82, Est GFR (MDRD) Non-Af 68, BUN/Creatinine Ratio 29.6 H, Glucose 125 H, Calcium 8.9 11/28/23 06:05: WBC 7.8, RBC 3.56 L, Hgb 10.5 L, Hct 34.1 L, MCV 95.8, MCH 29.5, MCHC 30.8 L, RDW Std Deviation 46.3 H, RDW Coeff of Radha 12.9, Plt Count 168, MPV 10.7, Immature Gran % (Auto) 0.400, Neut % (Auto) 77.7 H, Lymph % (Auto) 11.1 L, [place] % (Auto) 6.3, Eos % (Auto) 3.6, Baso % (Auto) 0.9, Absolute Neuts (auto) 6.0, Absolute Lymphs (auto) 0.86, Nucleated RBC % 0, PT 17.2 H, INR 1.4, Sodium 141, Potassium 4.1, Chloride 108 H, Carbon Dioxide 29.0, Anion Gap 4 L, BUN 26 H , Creatinine 0.97, Estim Creat Clear Calc 41.22, Est GFR (MDRD) Af Amer 70, Est GFR (MDRD) Non-Af 58 L, BUN/Creatinine Ratio 26.9 H, Glucose 107 H, Calcium 8.7, Phosphorus 3.7, Magnesium 2.2, Total Bilirubin 0.50, Direct Bilirubin 0.17, AST 20, ALT 23, Alkaline Phosphatase 52, Total Protein 6.2 L, Albumin 3.0 L, Globulin 3.2, Albumin/Globulin Ratio 0.9, TSH 0.83 Radiography Diagnostic Testing: Radiology Impression Brain CT 11/27/23 17:26 IMPRESSION: There are no acute findings. Chronic involutional changes of the brain. Electronically Signed: Rubén Casarez MD at 18:17 EDT , Cervical Spine CT 11/27/23 17:26 IMPRESSION: Degenerative changes of the cervical spine. There are no acute findings. Electronically Signed: Rubén Casarez MD at 18:39 EDT , Pelvis CT 11/27/23 17:30 IMPRESSION: Fracture of the right sacral ala. Fracture of the right acetabulum. Fractures right superior and inferior pubic ramus. Electronically Signed: Rubén Casarez MD at 18:30 EDT , Shoulder X-Ray 11/27/23 17:50 IMPRESSION: 1. Nondisplaced fracture of the distal right clavicle. 2. Degenerative findings of the right shoulder. Electronically Signed: Rubén Casarez MD at 18:16 EDT , Hip/Pelvis X-Ray 11/27/23 18:00 IMPRESSION: 1. Fracture of the right superior and inferior pubic ramus. 2. Degenerative findings in the left hip. Electronically Signed: Rubén Casarez MD at 18:23 EDT , Physical Exam Const alert and well nourished General Appearance: cooperative Extremity Extremity Narrative: closed R clavicle injury, mild bruising. closed right hip injury. NVI to ax nerve and mru /ain/pin as well as to the right foot, wiggles toes, normal sens, no knee pain. Assessment & Plan Assessment/Plan (1) Clavicle fracture: PLAN: PAD 1 R clavicle # - sling as needed, non op. WBAT R LE, though will be difficult given debility and clavicle fracture, plus prior KAY. OK to FU the patient as outpatient. Ortho signing off, call with concerns. (2) Fracture, pelvis closed: (3) Fall:
--- NOTE | 2023-11-28 16:20 | PN.HOSP_ITS ---
Reason for Visit Reason for Visit: Fall from standing height Subjective Subjective Mrs. Gong is an 88-year-old white female who [facility] after suffering from a fall from standing height on the evening of presentation. She does have a history of complete heart block with permanent pacemaker placement but does not feel that she had any loss of consciousness and that her fall was more mechanical. Her pacemaker was i nterrogated and showed no arrhythmias or events. After her fall she suffered from right shoulder pain and was unable to move her right lower extremity. Imaging in the emergency department as well as CT of the pelvis showed right superior and inferior pubic ramus fracture along with a nondisplaced right clavicular fracture. Orthopedic surgery evaluated the patient and did not recommend any surgical intervention with outpatient follow-up 2 weeks after discharge. Her right upper extremity is to be in a sling as needed and her right lower extremity is weightbearing as tolerated. She was placed on p.o. scheduled Tylenol and as needed p.o. and IV narcotics for pain and physical and Occupational Therapy were consulted. At the time evaluation she was complaining of acute pain however she was just been medicated. She does indicate that her pain was better earlier when she had her previous dose of oxycodone. She lives alone prior to presentation and does realize she will need to go somewhere for rehab prior to going home. Objective Data Objective Data Vital Signs: Vital Signs Temp Pulse Resp BP Pulse Ox O2 Del Method 98.1 F 70 18 102/55 L 94 Room Air 11/28/23 14:56 11/28/23 14:56 11/28/23 14:56 11/28/23 14:56 11/28/23 14:56 11/28/23 14:56 Oxygen Delivery Method Room Air Weight: 69.2 kg Body Mass Index (BMI) 23.1 Intake & Output: Intake and Output for Last 24 Hours 11/26/23 11/27/23 11/28/23 23:59 23:59 23:59 Intake Total 200 / 200 120 / 120 Output Total 350 / 350 Balance 200 / 200 -230 / -230 Lab / Micro Data 11/28/23 06:05 11/28/23 06:05 Labs: Laboratory Results - last 24 hr 11/27/23 17:51: WBC 9.9, RBC 4.01 L, Hgb 12.2, Hct 38.7, MCV 96.5, MCH 30.4, MCH C 31.5 L, RDW Std Deviation 45.7 H, RDW Coeff of Radha 12.8, Plt Count 208, MPV 10.3, Immature Gran % (Auto) 1.400 H, Neut % (Auto) 81.5 H, Lymph % (Auto) 8.0 L , [place] % (Auto) 6.3, Eos % (Auto) 2.1, Baso % (Auto) 0.7, Absolute Neuts (auto) 8.0 H, Absolute Lymphs (auto) 0.79 L, Nucleated RBC % 0, Sodium 139, Potassium 4.2, Chloride 108 H, Carbon Dioxide 26.0, Anion Gap 5, BUN 25 H, Creatinine 0.85, Estim Creat Clear Calc 47.04, Est GFR (MDRD) Af Amer 82, Est GFR (MDRD) Non-Af 68, BUN/Creatinine Ratio 29.6 H, Glucose 125 H, Calcium 8.9 11/28/23 06:05: WBC 7.8, RBC 3.56 L, Hgb 10.5 L, Hct 34.1 L, MCV 95.8, MCH 29.5, MCHC 30.8 L, RDW Std Deviation 46.3 H, RDW Coeff of Radha 12.9, Plt Count 168, MPV 10.7, Immature Gran % (Auto) 0.400, Neut % (Auto) 77.7 H, Lymph % (Auto) 11.1 L, [place] % (Auto) 6.3, Eos % (Auto) 3.6, Baso % (Auto) 0.9, Absolute Neuts (auto) 6.0, Absolute Lymphs (auto) 0.86, Nucleated RBC % 0, PT 17.2 H, INR 1.4, Sodium 141, Potassium 4.1, Chloride 108 H, Carbon Dioxide 29.0, Anion Gap 4 L, BUN 26 H , Creatinine 0.97, Estim Creat Clear Calc 41.22, Est GFR (MDRD) Af Amer 70, Est GFR (MDRD) Non-Af 58 L, BUN/Creatinine Ratio 26.9 H, Glucose 107 H, Calcium 8.7, Phosphorus 3.7, Magnesium 2.2, Total Bilirubin 0.50, Direct Bilirubin 0.17, AST 20, ALT 23, Alkaline Phosphatase 52, Total Protein 6.2 L, Albumin 3.0 L, Globulin 3.2, Albumin/Globulin Ratio 0.9, TSH 0.83 Radiography Diagnostic Testing: Radiology Impression Brain CT 11/27/23 17:26 IMPRESSION: There are no acute findings. Chronic involutional changes of the brain. Electronically Signed: Rubén Casarez MD at 18:17 EDT , Cervical Spine CT 11/27/23 17:26 IMPRESSION: Degenerative changes of the cervical spine. There are no acute findings. Electronically Signed: Rubén Casarez MD at 18:39 EDT Reading Location ID and State: [facility] / [place] , Service support , Pelvis CT 11/27/23 17:30 IMPRESSION: Fracture of the right sacral ala. Fracture of the right acetabulum. Fractures right superior and inferior pubic ramus. Electronically Signed: Rubén Casarez MD at 18:30 EDT , Shoulder X-Ray 11/27/23 17:50 IMPRESSION: 1. Nondisplaced fracture of the distal right clavicle. 2. Degenerative findings of the right shoulder. Electronically Signed: Rubén Casarez MD at 18:16 EDT , Hip/Pelvis X-Ray 11/27/23 18:00 IMPRESSION: 1. Fracture of the right superior and inferior pubic ramus. 2. Degenerative findings in the left hip. Electronically Signed: Rubén Casarez MD at 18:23 EDT , Physical Exam Const alert, oriented x3, no apparent distress, average body habitus and well nourished Constitutional Narrative: Very pleasant elderly, white female, lying in bed, appears younger than stated age, nontoxic, appears mildly uncomfortable HEENT head/scalp atraumatic and moist oral mucous membranes HEENT Narrative: Dentition is fair for age, Mallampati is 2, no thrush Head and Scalp: normocephalic Resp normal respiratory effort, no retractions, no use of accessory muscles and clear to auscultation bilaterally Auscultation: Negative for rales, rhonchi or wheezes Cardio regular rate, regular rhythm, S1 normal heart sound, S2 normal heart sound, no murmurs, no rub, no gallops and no clicks GI normal to inspection, nondistended, normoactive bowel sounds, soft to palpation and non-tender Extremity no clubbing, cyanosis or edema Extremity Narrative: Ecchymosis at right shoulder and upper chest region in the area of the clavicle, ecchymosis at the right upper thigh Neuro oriented x3 and no focal motor deficits Neuro Narrative: Difficulty with movement of her right upper extremity and right lower extremity due to pain but no motor deficit Speech: speech normal Psych affect normal Psych Narrative: Very pleasant, interacts appropriately Assessment & Plan Assessment/Plan (1) Clavicle fracture: (2) Fall: (3) Fracture, pelvis closed: (4) Fracture of right superior pubic ramus: (5) Fracture of right inferior pubic ramus: PLAN: Plan Fall/generalized weakness -PT and OT following -Recommend rehab at discharge -Plan is for discharge tomorrow as long as she remains medically stable to acute rehab -Management and social work following Acute right clavicular fracture -Nonweightbearing through that arm -Sling as needed for pain -Nonoperative intervention -Outpatient follow-up in 1 to 2 weeks with orthopedic surgery after discharge Acute right superior and inferior pubic ramus fracture -Continued scheduled Tylenol -As needed oxycodone -Patient does have as needed morphine for breakthrough currently -If she seems to be using this will increase oxycodone dose -Weightbearing as tolerated through right lower extremity -PT and OT are following -Discharge to rehab as long as patient remains medically stable on 11/29/2023 Sick sinus syndrome/atrial fibrillation/history of complete heart block status post pacemaker placement -Pacer interrogated without any signs of arrhythmia or dysfunction -Continue Eliquis History of stroke -Continue Eliquis 2.5 mg daily Hypothyroidism -Continue home levothyroxine Hypertension -Restart home atenolol Chronic anemia -Baseline seems to fluctuate -12.2 on admission and down to 10.5 today without any signs of acute bleeding -Repeat CBC in a.m. -Continue home iron supplementation -Cystic change from admission may be related to volume and bleeding being on Eliquis and status post fall with notable bruising History of microscopic colitis -No signs of acute GI bleeding -Monitor clinically Depression -Continue home escitalopram Mild cognitive impairment/dementia -Continue home donepezil DVT prophylaxis -Continue home Eliquis CODE STATUS -Full code is verified admission Charges/Coding Visit Charges Inpatient E&M: 04179 Subs Hosp L2
--- NOTE | 2023-11-28 16:31 | CASEMGMT ---
Discharge Planning Patient updated that she has been accepted and will admit to the rehab unit tomorrow. Fanny Hernandez, Discharge Planning Asst.
[2023-11-28] MEDS: Psyllium 1 PACKET PO (21:24)
[2023-11-28] MEDS: Donepezil HCl 5 MG Tablet PO (21:25)
[2023-11-29 05:00] VITALS: BP 123/64; PULSE 72; RESP 16; TEMP 36.6; O2SAT 96
[2023-11-29] MEDS: Levothyroxine 112 MCG Tablet PO (05:28)
[2023-11-29] MEDS: Acetaminophen 500 MG Tablet 1000 MG PO ×2 (05:28→14:18)
[2023-11-29] MEDS: oxyCODONE 5 MG Tablet PO ×2 (05:28→12:32)
[2023-11-29] MEDS: Budesonide Respules 0.5 MG/2 ML AMPUL.NEB. INHALATION (06:55)
[2023-11-29 06:56] VITALS: PULSE 71; RESP 16
[2023-11-29 07:17] LABS: Absolute Lymphocyte Count 0.71 X10^3/uL (0.83-4.51); Absolute Neutrophil Count 5.5 X10^3/uL (2.0-7.7); Basophil# 0.07 X10^3/uL; Basophil% 0.9 % (0-1); Eosinophil# 0.63 X10^3/uL; Eosinophils% 8.4 % (0-5); Hemoglobin 10.3 g/dL (12.0-15.0); Lymphocyte # 0.71 X10^3/ul (0.83-4.51); Lymphocyte % 9.5 % (19-41); Mean Corp Hgb Conc 31.2 g/dL (32-36); Mean Corpuscular Hgb 29.9 pg (27.0-32.0); Mean Corpuscular Volume 95.7 fL (81-99); Monocyte# 0.54 X10^3/uL; Monocyte% 7.2 % (0-10); NRBC Flagged by Analyzer 0 % (0-5); Neutrophil # 5.49 X10^3/uL (2.7-7.7); Neutrophil % 73.6 % (47-70); Platelet Count 145 K/mm3 (150-450); RBC Distribution Width CV 13.1 % (11.6-14.6); RBC Distribution Width SD 45.7 fl (35.1-43.9); Red Blood Count 3.45 M/mm3 (4.2-5.4); White Blood Count 7.5 K/mm3 (4.4-11.0)
[2023-11-29 07:58] LABS: Anion Gap 7 (5-15); BUN 31 mg/dL (7-18); BUN/Creat Ratio 32.8 RATIO (10-20); Calcium,Total 8.6 mg/dL (8.5-10.1); Chloride 107 mmol/L (98-107); Creatinine, Serum 0.94 mg/dL (0.55-1.02); EST Glomerular Filtration Rate 60 mL/min (>60); Est Glom Filt Rate - Afr Amer 72 mL/min (>60); Estimated Creatinine Clearance 42.53 ml/min; Glucose 103 mg/dL (74-106); Potassium 3.9 mmol/L (3.5-5.1); Sodium Level 141 mmol/L (136-145)
[2023-11-29] MEDS: Ferrous Sulfate 325 MG Tablet PO (08:45)
[2023-11-29 08:50] VITALS: BP 106/62; PULSE 70; RESP 16; TEMP 36.6; O2SAT 93
[2023-11-29] MEDS: APIXABAN 2.5 MG TABLET (WCH) PO (08:58)
[2023-11-29] MEDS: Escitalopram Oxalate 10 MG Tablet 5 MG PO (08:58)
[2023-11-29 12:26] VITALS: BP 101/57; PULSE 70
--- NOTE | 2023-11-29 12:47 | DS.PCM_ITS ---
Providers Date of Admission: 11/27/23 Date of Discharge: 11/29/23 Primary Care Physician: Dr. Elizabeth Cai MD Consultations 11/27/23 20:07 Consult: Cardiology Routine Consulting Provider: Rosa Yadav Reason for Consult: Pacemaker check EMERGENT Consult: No Notified: Yes Date Notified: 11/28/23 Time Notified: 08:12 Method of Notification: Text Consult: Orthopedics Routine Consulting Provider: Edgar Lopez Reason for Consult: Hip fracture EMERGENT Consult: Yes MD Notified: Yes Date Notified: 11/27/23 Time Notified: 19:48 Method of Notification: ED Physician Initiated Reason For Visit: HIP FRACTURE Diagnosis Discharge Diagnosis (1) Clavicle fracture: Status: Acute Code(s): S42.009A - Fracture of unspecified part of unspecified clavicle, initial encounter for closed fracture (2) Fall: Status: Acute Code(s): W19.XXXA - Unspecified fall, initial encounter (3) Fracture, pelvis closed: Status: Acute Code(s): S32.9XXA - Fracture of unspecified parts of lumbosacral spine and pelvis, initial encounter for closed fracture (4) Fracture of right superior pubic ramus: Status: Acute Code(s): S32.511A - Fracture of superior rim of right pubis, initial encounter for closed fracture (5) Fracture of right inferior pubic ramus: Status: Acute Code(s): S32.591A - Other specified fracture of right pubis, initial encounter for closed fracture Plan Medications at Discharge Home Medications [id number] 0.4 mg-calcium 162 mg-iron 18 hg-zkigcqo-jscqjs tablet 1 ea PO DAILY supplement 06/03/19 acetaminophen 325 mg capsule (Tylenol) 650 mg PO ONCE PRN Pain 10/07/22 apixaban 2.5 mg tablet (Eliquis) 2.5 mg PO BID blood thinner #180 tabs 11/24/22 budesonide 90 mcg/actuation breath activated powder inhaler 1 inh inhalation BID PRN shortness of breath or wheezing 03/14/23 biotin 500 mcg capsule 1 mg PO DAILY supplement 03/25/23 donepezil 5 mg tablet 5 mg PO QHS memory #90 tabs 04/07/23 metoprolol tartrate 25 mg tablet 25 mg PO BID BP #180 tabs 06/20/23 ferrous sulfate 325 mg (65 mg iron) tablet (FeroSul) See Rx Instructions .Route .COMPLEX supplement #90 TABLETS 06/27/23 escitalopram oxalate 5 mg tablet 5 mg PO DAILY anxiety #90 tabs 07/18/23 meclizine 25 mg tablet 25 mg PO BID PRN dizziness #90 tabs 07/18/23 levothyroxine 112 mcg tablet 112 mcg PO DAILY thyroid 11/09/23 acetaminophen 500 mg tablet 1,000 mg (2 x 500 mg) PO Q8 #0 tabs 11/29/23 oxycodone 5 mg tablet 5 mg PO Q4H PRN PRN PAIN 4-10 #0 tabs 11/29/23 psyllium husk (aspartame) 3 gram oral powder packet (Daily Fiber (psyllium- aspartame)) 1 packet PO DAILY #0 ea 11/29/23 Hospital Course Operations None Procedures EKG and - (Pacemaker interrogation/CT brain/CT cervical spine/CT pelvis/shoulder x-ray/hip and pelvic x-ray) Summary of Care Provided Minutes Spent on Discharge: 38 Hospital Course: Mrs. Gong is an 88-year-old white female who presented to the emergency department on 11/27/2023 after suffering from a fall from standing height on the evening of presentation. She does have a history of complete heart block with permanent pacemaker placement but does not feel that she had any loss of consciousness and that her fall was more mechanical. Her pacemaker was interrog ated and showed no arrhythmias or events. After her fall she suffered from right shoulder pain and was unable to move her right lower extremity. Imaging in the emergency department as well as CT of the pelvis showed right superior and inferior pubic ramus fracture along with a nondisplaced right clavicular fracture. Orthopedic surgery evaluated the patient and did not recommend any surgical intervention with outpatient follow-up 2 weeks after discharge. Her right upper extremity is to be in a sling as needed and her right lower extremity is weightbearing as tolerated. She was placed on p.o. scheduled Tylenol and as needed p.o. and IV narcotics for pain and physical and Occupational Therapy were consulted. She was seen by both physical and Occupational Therapy who recommended ongoing rehab and rehab physician was contacted and accepted her for admission. During her hospital stay she was maintained on scheduled Tylenol with as needed oxycodone. Her blood pressure medicine was held as the oxycodone did drive her blood pressure down some and we did not want to cause hypotension. Heart rates were stable in the 70s. Her hemoglobin did drop slightly from admission however seems to be stable overall and was 10.3 on admission. I do recommend a repeat CBC be done in about 5 days along with a repeat BMP. She will need follow-up with Dr. Arreola in 1 to 2 weeks following discharge to ensure appropriate healing and function. She was able to be discharged in stable condition with adequate pain control on 11/29/2023 to [facility] rehab unit. Discharge diagnoses: Fall Generalized weakness Acute right clavicular fracture Acute right superior and inferior pubic ramus fracture History of sick sinus syndrome status post pacemaker History of complete heart block status post pacemaker History of atrial fibrillation History of stroke Hypothyroidism Hypertension Chronic anemia Thrombocytopenia History of microscopic colitis Depression Mild cognitive impairment/dementia Physical Exam Const alert, oriented x3, no apparent distress, average body habitus, no limitations, healthy appearing and well nourished Constitutional Narrative: Very pleasant elderly, white female, sitting up in a chair at the bedside, watching television, appears younger than stated age, nontoxic, appears comfortable at this time General Appearance: cooperative, comfortable, well kempt and well developed Orientation / Consciousness: awake, oriented to person, oriented to place and oriented to time Exam Limitations: no limitations HEENT normocephalic, head/scalp atraumatic and moist oral mucous membranes; Negative for hearing grossly normal bilaterally HEENT Narrative: Mild to moderate hearing loss, Mallampati 2, no thrush Eyes PERRL, EOMs intact bilaterally and conjunctivae normal Neck no lymphadenopathy and supple Neck Narrative: Trachea midline Resp normal respiratory effort, no retractions, no use of accessory muscles and clear to auscultation bilaterally Auscultation: Negative for rales, rhonchi or wheezes Cardio regular rate, regular rhythm, S1 normal heart sound, S2 normal heart sound, no murmurs, no rub, no gallops and no clicks GI normal to inspection, nondistended, normoactive bowel sounds, soft to palpation and non-tender Extremity no clubbing, cyanosis or edema Extremity Narrative: Ecchymosis at right shoulder and upper chest region in the area of the clavicle Skin no rashes or lesions noted, no wounds, skin turgor normal and no jaundice Skin Narrative: Scattered ecchymosis, skin is thin Neuro oriented x3, CN's II-XII intact bilaterally and no focal motor deficits Neuro Narrative: Difficulty with movement of her right upper extremity and right lower extremity due to pain but no motor deficit Speech: speech normal Psych affect normal Psych Narrative: Very pleasant, interacts appropriately Weight / BMI Weight Weight: 69.2 kg Body Mass Index (BMI) 23.1 ABG / Lab / Microbiology Data 11/29/23 06:45 11/29/23 06:45 Laboratory: Laboratory Results - last 24 hr 11/29/23 06:45: WBC 7.5, RBC 3.45 L, Hgb 10.3 L, Hct 33.0 L, MCV 95.7, MCH 29.9, MCHC 31.2 L, RDW Std Deviation 45.7 H, RDW Coeff of Radha 13.1, Plt Count 145 L, MPV 11.0, Immature Gran % (Auto) 0.400, Neut % (Auto) 73.6 H, Lymph % (Auto) 9.5 L, [place] % (Auto) 7.2, Eos % (Auto) 8.4 H, Baso % (Auto) 0.9, Absolute Neuts (auto) 5.5, Absolute Lymphs (auto) 0.71 L, Nucleated RBC % 0, Sodium 141, Pot assium 3.9, Chloride 107, Carbon Dioxide 27.0, Anion Gap 7, BUN 31 H, Creatinine 0.94, Estim Creat Clear Calc 42.53, Est GFR (MDRD) Af Amer 72, Est GFR (MDRD) Non-Af 60, BUN/Creatinine Ratio 32.8 H, Glucose 103, Calcium 8.6 D/C Instructions Discharge Diet: No restrictions Discharge Activity: Return to Normal Activity Meaningful Use Info Meaningful Use Diagnoses (Choose all that apply): None applicable Discharge Plan Admission Admit Date/Time: 11/27/23 19:39 Primary Reason for Your Visit: Fall from standing height Attending Provider: Liliam Barrera Primary Care Provider: Elizabeth Cai Consulting Providers: Edgar Lopez; Rosa Yadav Instructions Additional Instructions / Restrictions: 1. Repeat CBC and BMP in 5 to 7 days 2. Weightbearing as tolerated on right lower extremity 3. Right arm in a sling for comfort Discharge Orders/Prescriptions Prescriptions: New acetaminophen 500 mg Tablet 1,000 mg PO Q8 Qty: 0 0RF oxycodone 5 mg Tablet 5 mg PO Q4H PRN PRN (Reason: PAIN 4-10) Qty: 0 0RF Daily Fiber (psyllium-aspart) 3 gram Powder In Packet 1 packet PO DAILY Qty: 0 0RF Held acetaminophen [Tylenol] 325 mg capsule 650 mg PO ONCE PRN (Reason: Pain) Hold Instructions: at discharge from rehab Rx Instructions: as needed for pain metoprolol tartrate 25 mg tablet 25 mg PO BID Qty: 180 3RF Hold Instructions: Resume on 12/02/23. No Action budesonide 90 mcg/actuation aerosol powdr breath activated 1 inh inhalation BID PRN (Reason: shortness of breath or wheezing) escitalopram oxalate 5 mg tablet 5 mg PO DAILY Qty: 90 1RF meclizine 25 mg tablet 25 mg PO BID PRN (Reason: dizziness) Qty: 90 1RF jc-rlg-RO-Pm-Tu-zuzeilu-lutein 1 EACH tablet 1 ea PO DAILY Patient Comments: vitamin biotin 500 mcg capsule 1 mg PO DAILY levothyroxine 112 mcg tablet 112 mcg PO DAILY Eliquis 2.5 mg tablet 2.5 mg PO BID Qty: 180 3RF Hold Instructions: Resume on 11/17/23. donepezil 5 mg tablet 5 mg PO QHS Qty: 90 3RF ferrous sulfate [FeroSul] 325 mg (65 mg iron) tablet See Rx Instructions .ROUTE .COMPLEX Qty: 90 3RF Dose Instruction: take 1 tablet by mouth once daily Rx Instructions: take 1 tablet by mouth once daily Referrals / Follow Up: Elizabeth Cai MD [Primary Care Provider] - See Referral Note (1 week after discharge from rehab) Miguel Angel Arreola MD [Med Staff - Active Staff] - Within 2 Weeks Disposition Disposition (needs filled in before D/C Order can be placed): Inpatient Rehab Unit/Facility Charges/Coding Visit Charges Inpatient E&M: 49325 Disch Hosp >30min
--- NOTE | 2023-11-29 13:35 | CASEMGMT ---
Social Work Pt going to rehab today. SW faxed over the discharge instructions to rehab. SW spoke w/pt, pt's caregiver Krupa and pt's friend in room. SW let them all know pt is going to rehab today. Pt agreeable. Pt's caregiver Krupa will let pt's son know pt is going to rehab today. No further needs anticipated. ORALIA Lewis
--- NOTE | 2023-11-29 13:46 | PHA.DC_ITS ---
Pharmacy OR Med Reconciliation Pharmacy Service has performed discharge medication reconciliation for this patient. The patient's discharge medication list was reviewed for discrepancies and discrepancies were resolved. Medications at Discharge Home Medications slmumfqi-fay-CV 0.4 mg-calcium 162 mg-iron 18 sn-zatmxgq-qmvrra tablet 1 ea PO DAILY supplement 06/03/19 acetaminophen 325 mg capsule (Tylenol) 650 mg PO ONCE PRN Pain 10/07/22 apixaban 2.5 mg tablet (Eliquis) 2.5 mg PO BID blood thinner #180 tabs 11/24/22 budesonide 90 mcg/actuation breath activated powder inhaler 1 inh inhalation BID PRN shortness of breath or wheezing 03/14/23 biotin 500 mcg capsule 1 mg PO DAILY supplement 03/25/23 donepezil 5 mg tablet 5 mg PO QHS memory #90 tabs 04/07/23 metoprolol tartrate 25 mg tablet 25 mg PO BID BP #180 tabs 06/20/23 ferrous sulfate 325 mg (65 mg iron) tablet (FeroSul) See Rx Instructions .Route .COMPLEX supplement #90 TABLETS 06/27/23 escitalopram oxalate 5 mg tablet 5 mg PO DAILY anxiety #90 tabs 07/18/23 meclizine 25 mg tablet 25 mg PO BID PRN dizziness #90 tabs 07/18/23 levothyroxine 112 mcg tablet 112 mcg PO DAILY thyroid 11/09/23 acetaminophen 500 mg tablet 1,000 mg (2 x 500 mg) PO Q8 #0 tabs 11/29/23 oxycodone 5 mg tablet 5 mg PO Q4H PRN PRN PAIN 4-10 #0 tabs 11/29/23 psyllium husk (aspartame) 3 gram oral powder packet (Daily Fiber (psyllium- aspartame)) 1 packet PO DAILY #0 ea 11/29/23
[2023-11-29 14:31] VITALS: BP 105/57; PULSE 64; RESP 16; TEMP 36.4; O2SAT 95
--- NOTE | 2023-11-29 14:46 | NURSING ---
REPORT CALLED TO REHAB
== END 2023-11-29 15:45 | DRG 535 ==
LOC: ED 18:56 → MS3 20:22
PROVIDERS: Nurse Practitioner; Admitting Provider Internal Medicine; Emergency Provider Student in an Organized Health Care Education/Training Program; PCP Internal Medicine; Visit Provider Internal Medicine
DX: S32.511A Fracture of superior rim of right pubis, initial encounter for closed fracture (principal); S32.401A Unspecified fracture of right acetabulum, initial encounter for closed fracture; F03.90 Unspecified dementia, unspecified severity, without behavioral disturbance, psychotic disturbance, mood disturbance, and anxiety; I49.5 Sick sinus syndrome; D50.9 Iron deficiency anemia, unspecified; I10 Essential (primary) hypertension; E03.9 Hypothyroidism, unspecified; F32.A Depression, unspecified; S32.591A Other specified fracture of right pubis, initial encounter for closed fracture; I48.91 Unspecified atrial fibrillation; W19.XXXA Unspecified fall, initial encounter; F41.9 Anxiety disorder, unspecified; R53.1 Weakness; Z79.01 Long term (current) use of anticoagulants; Z79.899 Other long term (current) drug therapy; Z86.73 Personal history of transient ischemic attack (TIA), and cerebral infarction without residual deficits; Z95.0 Presence of cardiac pacemaker; Z96.641 Presence of right artificial hip joint
CPT/HCPCS: 36415; 70450; 72125; 72192; 73030; 73502; 80048; 80053; 82248; 83735; 84100; 84443; 85025; 85610; 94640; 97162; 97166; 97530; 97535; 99283

== ENCOUNTER 2023-11-29 15:31 | Inpatient (IN) | payer MEDICARE, OTHER, SELFPAY ==
[2023-11-29 16:47] VITALS: BP 120/56; PULSE 69; RESP 18; TEMP 36.9; O2SAT 93; BMI 23.8
[2023-11-29] MEDS: oxyCODONE 5 MG Tablet PO ×2 (17:25→21:56)
[2023-11-29 19:23] VITALS: BP 124/62; PULSE 66; RESP 16; TEMP 36.8; O2SAT 93
[2023-11-29] MEDS: APIXABAN 2.5 MG TABLET (WCH) PO (21:56)
[2023-11-29] MEDS: Donepezil HCl 5 MG Tablet PO (21:56)
[2023-11-29] MEDS: Acetaminophen 500 MG Tablet 1000 MG PO (21:56)
[2023-11-29] MEDS: Psyllium 1 PACKET PO (21:56)
[2023-11-29 22:00] VITALS: PULSE 66; RESP 16; O2SAT 96
[2023-11-29 22:05] VITALS: BMI 23.8
[2023-11-29] MEDS: 0.9% Saline Lock 10 ML Syringe IV (22:25)
[2023-11-30] MEDS: oxyCODONE 5 MG Tablet PO ×2 (05:41→10:22)
[2023-11-30] MEDS: Acetaminophen 500 MG Tablet 1000 MG PO ×3 (05:42→21:11)
[2023-11-30] MEDS: Levothyroxine 112 MCG Tablet PO (05:42)
[2023-11-30 05:48] VITALS: BMI 24.0
[2023-11-30 07:24] VITALS: BP 154/67; PULSE 69; RESP 16; TEMP 36.4; O2SAT 96
[2023-11-30 08:08] VITALS: O2SAT 93
[2023-11-30] MEDS: Ferrous Sulfate 325 MG Tablet PO (08:55)
[2023-11-30] MEDS: Escitalopram Oxalate 10 MG Tablet 5 MG PO (08:55)
[2023-11-30] MEDS: Multivitamins,Ther W-Minerals Tablet 1 TABLET PO (08:55)
[2023-11-30] MEDS: APIXABAN 2.5 MG TABLET (WCH) PO ×2 (08:56→21:11)
--- NOTE | 2023-11-30 11:23 | PCM.HP.STD ---
HPI - General General Date of Admission: 11/29/23 Date of Service: 11/30/23 Chief Complaint: Debility due to fall with pelvic fractures HPI Narrative MARISA SANTIAGO, is a 88 YO F with a PMH of hypothyroidism, anxiety/depression, OA, asthma/AFIB , complete heart block (S/P PM), dementia, HTN, hx of GIB, presbycusis, microscopic colitis. NR MV regurgitation, RA, parathyroid abnormality, venous insufficiency and chronic anticoagulation with Eliquis who presented to the ED at [facility] on 11/27/23 after a fall from standing height c/o R shoulder pain and inability to move her R thigh. She denied syncope and stated the fall occurred when she was negotiating a step up into her kitchen. Imaging showed R superior and inferior pubic rami fractures and a ND R clavicle fx. Dr. Arreola from orthopedics felt no surgical intervention was indicated. Because she lives alone and was not able to ambulate he was admitted to the hospitalist service. She was seen by PT/OT and acute rehab was recommended at [place]. She was transferred to the acute inpt rehab unit at [facility] on 11/29/23 for 3 hours of therapy daily to restore function/independence at or near her level prior to the fall/fractures. Significant lab at admission to the emergency department included a low hemoglobin at 10.5 with normochromic normocytic indices and an elevated RDW. Platelets were within normal limits. BUN was high at 25 with a creatinine of 0.85 urine/creatinine ratio of 29.6. Sodium and potassium are normal. She is currently taking 5 mg of Oxycodone Q 4 PRN and scheduled Tylenol 1,000 mg Q 8H for pain control. The Oxycodone causes some confusion and increased difficulty with memory which is upsetting to her. She also had urine retention and had a Walker that was discontinued at transfer to rehab. [facility] Medical History (Updated 11/30/23 @ 13:[address] Daniella Travis DO) Acquired hypothyroidism Allergies Anemia Anxiety and depression Arthritis Asthma Atrial fibrillation BRBPR (bright red blood per rectum) Cardiology follow-up encounter Carpal tunnel syndrome Chronic anticoagulation Closed head injury Complete heart block Concussion CVA (cerebral vascular accident) Delayed wound healing Dementia Distal radius fracture Edema leg Essential (primary) hypertension Fall Flu vaccine need Fracture of metacarpal base, first, right hand, closed Fracture of right inferior pubic ramus Fracture of right superior pubic ramus GI bleed Goiter Hearing problem History of GI bleed History of IBS History of stress test Hyperlipidemia Hyperlipidemia Hypertension Hypothyroidism Hypothyroidism Iron deficiency anemia Malnutrition Microscopic colitis Microscopic colitis Mild intermittent asthma Non-smoker Nonrheumatic mitral valve insufficiency Open wound of left ring finger Osteoarthritis Pacemaker lead malfunction Parathyroid disorder Periorbital edema of left eye Persistent atrial fibrillation Personal history of colonic polyps Rheumatoid arthritis Right clavicle fracture Right hemiparesis Sick sinus syndrome Stroke/cerebrovascular accident Thyroid storm Ulcer of left lower extremity with fat layer exposed Ulcer of right lower extremity with fat layer exposed Venous insufficiency Vertigo 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 Wears glasses Home Medications [id number] 0.4 mg-calcium 162 mg-iron 18 [id number] tablet 1 ea PO DAILY supplement 06/03/19 [History Last Taken 04/25/21 08:31] apixaban 2.5 mg tablet (Eliquis) 2.5 mg PO BID blood thinner #180 tabs 11/24/22 [Rx Last Taken 11/29/23] budesonide 90 mcg/actuation breath activated powder inhaler 1 inh inhalation BID PRN shortness of breath or wheezing 03/14/23 [History Last Taken 11/29/23] biotin 500 mcg capsule 1 mg PO DAILY supplement 03/25/23 [History Last Taken Unknown] donepezil 5 mg tablet 5 mg PO QHS memory #90 tabs 04/07/23 [Rx Last Taken 11/28/23] metoprolol tartrate 25 mg tablet 25 mg PO BID BP #180 tabs 06/20/23 [Rx Last Taken Unknown] ferrous sulfate 325 mg (65 mg iron) tablet (FeroSul) See Rx Instructions .Route .COMPLEX supplement #90 TABLETS 06/27/23 [Rx Last Taken 11/29/23] escitalopram oxalate 5 mg tablet 5 mg PO DAILY anxiety #90 tabs 07/18/23 [Rx Last Taken 11/29/23] levothyroxine 112 mcg tablet 112 mcg PO DAILY thyroid 11/09/23 [History Last Taken 11/29/23] acetaminophen 500 mg tablet 1,000 mg (2 x 500 mg) PO Q8 pain #0 tabs 11/29/23 [Rx Last Taken 11/29/23] oxycodone 5 mg tablet 5 mg PO Q4H PRN PRN PAIN 4-10 #0 tabs 11/29/23 [Rx Last Taken 11/29/23] psyllium husk (aspartame) 3 gram oral powder packet (Daily Fiber (psyllium-aspartame)) 1 packet PO DAILY bowel mobility #0 ea 11/29/23 [Rx Last Taken 11/28/23] Allergy/AdvReac Type Severity Reaction Status Date / Time Environmental Allergies: Allergy Mild sneezing Verified 11/27/23 16:57 Uncoded latex AdvReac Itching Verified 11/27/23 16:57 sulfamethoxazole AdvReac Nausea Verified 11/27/23 16:57 [From Bactrim] trimethoprim [From Bactrim] AdvReac Nausea Verified 11/27/23 16:57 Family History Father CAD (coronary artery disease) Brother Cancer Leukemia Brother Epilepsy Mother Colon cancer Other CVA (cerebral vascular accident) Diabetes Surgical History (Updated 11/30/23 @ 13:[address] Daniella Travis DO) H/O thyroidectomy H/O thyroidectomy History of knee replacement History of permanent cardiac pacemaker placement History of right hip replacement Status post placement of cardiac pacemaker Social History (Updated 11/30/23 @ 13:[address] 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 Constitutional Constitutional: Denies anorexia, change in weight, chills, fatigue, fever(s), night sweats or weakness Eyes Eyes: Denies blurry vision, change in vision, eye pain or loss of vision ENT HEENT: Denies abnormal hearing, dysphagia, headache(s), hearing loss, nasal congestion or sore throat Cardiovascular Cardiovascular: Reports lightheadedness; Denies chest pain, dyspnea on exertion, edema, orthopnea, palpitations, paroxysmal nocturnal dyspnea or syncope Respiratory/Chest Respiratory/Chest: Denies cough, dyspnea, shortness of breath at rest, shortness of breath with exertion or wheezing Gastrointestinal Gastrointestinal: Denies abdominal pain, constipation, diarrhea, dyspepsia, hematemesis, hematochezia, nausea or vomiting Genitourinary Genitourinary: Reports difficulty urinating; Denies burning urination, dysuria, hematuria, nocturia, urinary frequency, urinary hesitancy, urinary incontinence or urinary urgency Musculoskeletal Musculoskeletal: Reports extremity pain and other Details: pelvic pain ; Denies back pain, joint swelling or neck pain Neurologic Neurologic: Reports confusion, dizziness and memory loss; Denies disequilibrium, focal weakness, frequent falls, headache(s), paresthesias, radicular pain, seizures or tremor(s) Psychiatric Psychiatric: Denies anxiety, depression, homicidal ideation or suicidal ideation Endocrine Endocrinology: Denies change in body appearance, polydipsia or polyuria Hematologic/Lymphatic Hematologic/Lymphatic: Reports easy bleeding and easy bruising; Denies lymphadenopathy Allergic/Immunologic Allergic/Immunologic: Denies rhinitis, eczemia or asthma Vital Signs Vital Signs Vital Signs: 11/29/23 16:47 11/29/23 19:23 11/29/23 20:23 Temperature 98.5 F 98.3 F Temperature Source Temporal Temporal Pulse Rate 69 66 Pulse Strength Normal (2+) Respiratory Rate 18 16 Respiratory Effort Respiratory Depth Respiratory Pattern Blood Pressure 120/56 L 124/62 H Blood Pressure Mean 77 82 Blood Pressure Source Monitor Monitor Blood Pressure Position Semi-Fowlers Semi-Fowlers Blood Pressure Location Left Arm Left Arm Pulse Ox 93 93 Oxygen Delivery Method Room Air Room Air 11/29/23 22:00 11/30/23 07:24 11/30/23 08:08 Temperature 97.6 F L Temperature Source Temporal Pulse Rate 66 69 Pulse Strength Respiratory Rate 16 16 Respiratory Effort Normal Non-Labored Respiratory Depth Normal Respiratory Pattern Normal Blood Pressure 154/67 H Blood Pressure Mean 96 Blood Pressure Source Monitor Blood Pressure Position Semi-Fowlers Blood Pressure Location Left Arm Pulse Ox 96 96 93 Oxygen Delivery Method Room Air Room Air Room Air 11/30/23 09:19 Temperature Temperature Source Pulse Rate Pulse Strength Normal (2+) Respiratory Rate Respiratory Effort Respiratory Depth Respiratory Pattern Blood Pressure Blood Pressure Mean Blood Pressure Source Blood Pressure Position Blood Pressure Location Pulse Ox Oxygen Delivery Method Weight Weight: 158 lb 4.67 oz Body Mass Index (BMI) 24.0 Physical Exam Const alert Constitutional Narrative: Oriented to person and the year and knows she is in the hospital. Can not remember what day she came to the hospital. Able to answer questions about her hx pretty well. Tells me she has 3 sons but, none of them live close. she is pleasant and making good eye contact. General Appearance: cooperative and well kempt HEENT head/scalp atraumatic Eyes PERRL, EOMs intact bilaterally, conjunctivae normal and no scleral icterus Eyes Narrative: No DC from the eyes and no mattering of the eyelashes General Eye: normal appearance of both eyes Neck supple, no JVD, thyroid normal, No nodes and no carotid bruits Chest Chest: symmetrical chest wall rise Resp normal respiratory effort, normal air movement, no use of accessory muscles and clear to auscultation bilaterally Effort and Inspection: able to speak in complete sentences Cardio S1 normal heart sound, S2 normal heart sound, no murmurs, no rub and no gallops Cardio Narrative: She is in AF with controlled VR. GI normal to inspection, nondistended, normoactive bowel sounds, soft to palpation and non-tender GI Narrative: No guarding with palpation. Extremity no clubbing, cyanosis or edema and no calf tenderness Skin no wounds, no jaundice and no petechiae General Skin Exam: no breakdown Rashes: no rashes Neuro CN's II-XII intact bilaterally, moves all extremities, no focal motor deficits and no sensory deficits noted Sensorium / Orientation: alert Psych cooperative, affect normal and speech normal Psych Narrative: she is having trouble with short term memory......I suspect this is due to recent trauma, change of venue from home to hospital and then to rehab and to narcotics for pain control. Appearance: grossly normal, appropriate and well kempt Attitude: calm Activity / Motor Behavior: appropriate eye contact Assessment & Plan Assessment/Plan (1) Physical debility: (2) Fall: QUALIFIERS: Encounter type: subsequent encounter Qualified Code(s): W19.XXXD - Unspecified fall, subsequent encounter (3) Acute pain due to trauma: (4) Right clavicle fracture: QUALIFIERS: Encounter type: subsequent encounter Clavicle location: unspecified part of clavicle Fracture type: closed Fracture alignment: nondisplaced (5) Fracture of right superior pubic ramus: QUALIFIERS: Encounter type: subsequent encounter Fracture type: closed (6) Fracture of right inferior pubic ramus: QUALIFIERS: Encounter type: subsequent encounter Fracture type: closed (7) Persistent atrial fibrillation: (8) History of permanent cardiac pacemaker placement: (9) Dementia: QUALIFIERS: Dementia type: unspecified type Dementia severity: unspecified severity Dementia behavioral or psychological symptom: without behavioral, psychotic, or mood disturbance or anxiety Qualified Code(s): F03.90 - Unspecified dementia, unspecified severity, without behavioral disturbance, psychotic disturbance, mood disturbance, and anxiety (10) Chronic anticoagulation: PLAN: on Eliquis LT PLAN: Plan PLAN PT for gait stability OT for ADL's ST for evaluation Analgesics as needed Bowel protocol Fall precautions Assess for Anxiety/Depression GI prophylaxis -not on any prophylaxis at the current time. She does have a history of a GI bleed but she has no nausea, no vomiting and no epigastric pain or heartburn at this time. DVT prophylaxis - she is on apixaban for chronic AF Follow up with Dr. Cai, cardiology and Dr. Arreola following DC from [facility] All labs done during her hospital stay and for the past year were reviewed. Will try transitioning to Tramadol for pain since she is having increased difficulties with memory and thought processes since she has been on Oxycodone. Straight cath for a UA since she is retaining and had a Walker while in the hospital. PVR last night was 306 but, PVR recently 0. Charges/Coding Visit Charges Inpatient E&M: 05369 Init Hosp L2
--- NOTE | 2023-11-30 13:58 | REHABEVAL_ITS ---
Admission Information Primary Diagnosis:: Debility due to fall with pelvic and R clavicle fractures. Status Changes from Prescreening?: Medical (has a UTI at presentation to rehab ) Actual Problem List:: Infection, Falls, Pain, ALteration in Cmfrt, Cognitve Impr/Memory Loss, Bowel, Constipation, Alteration in Sleep, Mobility Impaired, Self Care Deficit and Alteration-Leisure Activ. Risk of Complications DVT: HASMUKH Hose and - (On Eliquis for chronic AF) Bleeding: Monitor Lab Values, Nursing to Teach Precautions for anti-coagulation therapy., Wound, if applicable, to be assessed every shift. and Stroke patients assessed for lethargy or change in status. Infection: Clinical Staff to Monitor for S/S of infection: and S/S of infection include fever, redness, warmth, etc. Urinary Tract Infection: Monitor for frequency, burning, discomfort, or incontinence. and Nursing will obtain urine sample for urinalysis and C&S when ordered. Aspiration: Clinical staff will monitor for coughing, drooling, congestion., Speech will evaluate swallowing and dsyphasia. and Nursing will monitor patient swallowing during meals. Falls: Patient will be evaluated for Fall Precautions and Patient will be placed on Fall Precautions as indicated per protocol. Skin Breakdown: Nursing will assess skin daily using assessment tool. and Nursing will place on Skin Breakdown Precautions as indicated. Pain: Clinical staff will assess patient's pain level per protocol., Medications will be given, if needed, and the pain level reassessed. and Other methods: Massage, distraction, decrease stimulus, etc. used PRN. Plan of Care Patient requires physician specializing in physical medicine and rehab oversight to provide close medical supervision of rehab issues including: Pain Management, Sleep Problems, Bowel and Bladder, Medical and co-morbidity Management, DVT prophylaxis, Rehabilitation Leadership and Coordination of treatment team Patient needs Physical Therapy: For a minimum of 1 hour and At least 5 out of 7 days Patient needs Physical Therapy to improve:: Mobility, Strengthening, Transfers, Stretching, ROM, Endurance, Stairs, Gait and Balance Patient needs Occupational Therapy: For a minimum of 1 hour and At least 5 out of 7 days Patient needs Occupational Therapy to improve ADL's incl.: Eating, Grooming, Bathing, Dressing, Toileting, Toilet transfers, Community Reintegration, Higher functioning activities, Household tasks, Adaptive Equipment, Splinting and Other activities as determined Patient requires speech therapy: For a minimum of 1 hour and At least 5 out of 7 days Patient requires speech therapy for: Swallowing, Cognition, Language Skills and Compensatory Strategies Patient requires 24/ Rehabilitation Nursing for: Pain Issues, Identifying and preventing risk factors, Monitoring and reporting current medical conditions, Assisting with ambulation, transfer, and all ADL's, Teaching patients about disease process and medications, Family teaching, Providing safe environment, Bowel and Bladder Issues, Skin integrity and Medication Management Patient needs Residence Director/ Case Management for: Discharge Planning, Arranging Home Equipment or Services and Family Interventions Patient needs Dietary and Nutrition Services for: Adequate Nutrition, Nutritional Supplements and Nutritional Education Goals Goals Patient will remain: free from falls Patient will perform eating at: MOD I level of assist. Patient will perform bed mobility at: MOD I level of assist. Patient will complete transfers from bed to chair at: Standby Assist. Patient will ambulate: - (50 feet with wheeled walker and contact-guard assist/standby assist on various surfaces.) Patient will complete upper body dressing at: - (Minimal assistance for increased independence with self-care) Patient will complete lower body dressing at: - (Min assist with adaptive equipment as needed to increase independence.) Patient will complete toilet transfer at: - (Minimal assistance.) Patient will complete toileting at: - (Minimal assistance) Patient will perform bathing at: - (Min assist.) Patient will complete grooming at: - (set up) Patient will achieve: - (2 steps with 2 handrails at contact-guard assist) Patient will have pain level of: of 3 or less Patient's skin will: remain intact Patient will receive: adequate nutrition. Discharge Planning Estimated Length of stay (days): 21 Anticipated D/C Destination: [facility] Facility Was Preadmission Assessment Accurate?: Yes
[2023-11-30] MEDS: traMADol 50 MG Tablet PO ×2 (14:17→22:25)
--- NOTE | 2023-11-30 16:44 | CASEMGMT ---
Social Service Met with patient and completed admission assessment. Patient was very anxious, tearful and restless at beginning of visit but did calm during visit and was able to focus on conversation. This worker discussed advanced directives with patient and the copy on file is old and lists her as DPOAHC. Pt stated she would like assistance updating this form. SW to assist with DC planning. CAROLINA Leonard
[2023-11-30 17:00] VITALS: BMI 24.0
[2023-11-30 21:00] VITALS: BP 130/62; PULSE 72; RESP 16; TEMP 36.4; O2SAT 94
[2023-11-30] MEDS: Senna/Docusate Sodium 1 Tablet PO (21:11)
[2023-11-30] MEDS: Donepezil HCl 5 MG Tablet PO (21:11)
[2023-11-30] MEDS: Psyllium 1 PACKET PO (21:11)
[2023-12-01 01:11] VITALS: BMI 24.0
[2023-12-01 02:36] LABS: Mucous, Urine 0 SEEN /hpf (<or=2+)
[2023-12-01 02:53] LABS: Color, Urine Yellow (Yellow); Glucose, Dipstick Normal (Normal); Ketone-Dipstick Negative (Negative); Leukocyte Esterase-Dipstick 25 /ul (Negative); Nitrite-Dipstick Positive (Negative); Occult Blood-Urine 25 /ul (Negative); Protein-Dipstick Negative (Negative); Specific Gravity, Urine 1.015 (1.002-1.030); Urine Bilirubin Dipstick Negative (Negative); Urine Clarity Clear (Clear); Urine Urobilinogen Normal (Normal)
[2023-12-01 03:14] LABS: Red Blood Cells-Urine 0-5 SEEN /hpf (0-5); White Blood Cells 5-10 SEEN /hpf (0-5)
[2023-12-01 03:16] LABS: Bacteria 4+ /hpf (None Seen); Squamous Epithelial Cells - UA 0-5 SEEN /hpf (5-10)
[2023-12-01] MEDS: Acetaminophen 500 MG Tablet 1000 MG PO ×3 (05:22→22:02)
[2023-12-01] MEDS: Levothyroxine 112 MCG Tablet PO (05:22)
[2023-12-01 06:51] VITALS: O2SAT 93
[2023-12-01] MEDS: Multivitamins,Ther W-Minerals Tablet 1 TABLET PO (08:34)
[2023-12-01] MEDS: Ferrous Sulfate 325 MG Tablet PO (08:34)
[2023-12-01] MEDS: APIXABAN 2.5 MG TABLET (WCH) PO ×2 (08:35→22:05)
[2023-12-01] MEDS: Escitalopram Oxalate 10 MG Tablet 5 MG PO (08:35)
[2023-12-01] MEDS: 0.9% Saline Lock 10 ML Syringe IV (08:41)
--- NOTE | 2023-12-01 08:43 | PN_ITS ---
Subjective Subjective Afebrile VSS Maintaining appropriate oxygen saturation on RA Oral intake - FOOD good FLUIDS poor Discussed with nursing - no problems that need addressed. Slept well last night. Appetite is good. Reviewed the THERAPY notes Medication list reviewed. Stool is Hemoccult positive UA is nitrate positive and has pyuria with 4+ bacteria Tabitha feels that her pain is adequately controlled at this time. She thinks the tramadol works better than the oxycodone. She denies any nausea, epigastric pain, vomiting, lightheadedness, diarrhea/constipation, dysuria or calf pain. Objective Data Objective Data Vital Signs: Vital Signs Temp Pulse Resp BP Pulse Ox O2 Del Method 97.6 F L 72 16 130/62 H 93 Room Air 11/30/23 21:00 11/30/23 21:00 11/30/23 21:00 11/30/23 21:00 12/01/23 06:51 12/01/23 06:51 Oxygen Delivery Method Room Air Weight: 158 lb 4.67 oz Body Mass Index (BMI) 24.0 Intake & Output: Intake and Output for Last 24 Hours 11/29/23 11/30/23 12/01/23 23:59 23:59 23:59 Output Total 600 / 600 200 / 200 Balance -600 / -600 -200 / -200 Lab / Micro Data 12/01/23 08:57 12/01/23 08:57 Labs: Laboratory Results - last 24 hr 12/01/23 02:15: Urine Color Yellow, Urine Clarity Clear, Urine pH 5.0, Ur Specific [place] 1.015, Urine Protein Negative, Urine Glucose (UA) Normal, Urine Ketones Negative, Urine Occult Blood 25 H, Urine Nitrite Positive H, Urine Bilirubin Negative, Urine Urobilinogen Normal, Ur Leukocyte Esterase 25 H, Urine RBC 0-5 SEEN, Urine WBC 5-10 SEEN, Ur Squamous Epith Cells 0-5 SEEN, Urine Bacteria 4+, Urine Mucus 0 SEEN Micro: Microbiology 11/30/23 22:23 Stool Stool Occult Blood (DELIA) - Final Occult Blood Positive Physical Exam Const alert General Appearance: cooperative and well kempt HEENT head/scalp atraumatic Resp normal respiratory effort, normal air movement and clear to auscultation bilaterally Cardio no murmurs, no rub and no gallops Cardio Narrative: She is in AF with controlled VR. GI normal to inspection, nondistended, normoactive bowel sounds, soft to palpation and non-tender GI Narrative: No guarding with palpation. Extremity no clubbing, cyanosis or edema and no calf tenderness Skin no wounds General Skin Exam: no breakdown Rashes: no rashes Assessment & Plan Assessment/Plan (1) Physical debility: (2) Fall: QUALIFIERS: Encounter type: subsequent encounter Qualified Code(s): W19.XXXD - Unspecified fall, subsequent encounter (3) Acute pain due to trauma: (4) Right clavicle fracture: QUALIFIERS: Encounter type: subsequent encounter Clavicle location: unspecified part of clavicle Fracture type: closed Fracture alignment: nondisplaced (5) Fracture of right superior pubic ramus: QUALIFIERS: Encounter type: subsequent encounter Fracture type: closed (6) Fracture of right inferior pubic ramus: QUALIFIERS: Encounter type: subsequent encounter Fracture type: closed PLAN: Plan 1. Continue therapy 2. Start Protonix 40 mg p.o. daily today 3. Augmentin 500 mg p.o. twice daily empirically until results of urine culture are available 4. Urine has been sent for culture 5. Continue tramadol for pain 6. CBC with differential and BMP now. Suspect we may need to give IV fluids. Fluid intake is poor. Charges/Coding Visit Charges Inpatient E&M: 41214 Subs Hosp L1
[2023-12-01 09:03] LABS: Absolute Lymphocyte Count 0.72 X10^3/uL (0.83-4.51); Absolute Neutrophil Count 5.1 X10^3/uL (2.0-7.7); Basophil# 0.06 X10^3/uL; Basophil% 0.9 % (0-1); Eosinophil# 0.44 X10^3/uL; Eosinophils% 6.4 % (0-5); Hematocrit 35.5 % (37-47); Hemoglobin 11.1 g/dL (12.0-15.0); Lymphocyte # 0.72 X10^3/ul (0.83-4.51); Lymphocyte % 10.5 % (19-41); Mean Corp Hgb Conc 31.3 g/dL (32-36); Mean Corpuscular Hgb 29.9 pg (27.0-32.0); Mean Corpuscular Volume 95.7 fL (81-99); Mean Platelet Vol. 10.5 fl (6.2-12.0); Monocyte# 0.52 X10^3/uL; Monocyte% 7.6 % (0-10); NRBC Flagged by Analyzer 0 % (0-5); Neutrophil # 5.05 X10^3/uL (2.7-7.7); Platelet Count 171 K/mm3 (150-450); RBC Distribution Width CV 13.2 % (11.6-14.6); RBC Distribution Width SD 46.5 fl (35.1-43.9); Red Blood Count 3.71 M/mm3 (4.2-5.4); White Blood Count 6.8 K/mm3 (4.4-11.0)
[2023-12-01 09:16] LABS: Anion Gap 3 (5-15); BUN 32 mg/dL (7-18); BUN/Creat Ratio 36.4 RATIO (10-20); Calcium,Total 9.1 mg/dL (8.5-10.1); Chloride 107 mmol/L (98-107); Creatinine, Serum 0.88 mg/dL (0.55-1.02); EST Glomerular Filtration Rate 65 mL/min (>60); Est Glom Filt Rate - Afr Amer 78 mL/min (>60); Estimated Creatinine Clearance 45.43 ml/min; Glucose 136 mg/dL (74-106); Potassium 4.5 mmol/L (3.5-5.1); Sodium Level 138 mmol/L (136-145)
[2023-12-01] MEDS: traMADol 50 MG Tablet PO ×3 (09:25→23:55)
[2023-12-01 10:00] VITALS: BP 156/86; PULSE 69; RESP 17; TEMP 36.6; O2SAT 96
[2023-12-01] MEDS: Amox/Clavulanate 500 MG Tablet PO ×2 (10:25→15:38)
[2023-12-01] MEDS: Pantoprazole Sodium 40 MG Tablet PO (10:25)
[2023-12-01 11:01] VITALS: BP 122/54; BP 124/52; BP 133/63; PULSE 70; PULSE 73; PULSE 76
[2023-12-01 14:34] VITALS: BMI 24.0
[2023-12-01 22:00] VITALS: BP 145/57; PULSE 72; RESP 16; TEMP 37.1; O2SAT 97
[2023-12-01] MEDS: Senna/Docusate Sodium 1 Tablet PO (22:04)
[2023-12-01] MEDS: Donepezil HCl 5 MG Tablet PO (22:04)
[2023-12-01] MEDS: Psyllium 1 PACKET PO (22:05)
[2023-12-02 02:39] VITALS: BMI 24.0
[2023-12-02] MEDS: Levothyroxine 112 MCG Tablet PO (05:12)
[2023-12-02] MEDS: Acetaminophen 500 MG Tablet 1000 MG PO ×3 (05:12→21:13)
[2023-12-02] MEDS: Pantoprazole Sodium 40 MG Tablet PO (08:35)
[2023-12-02] MEDS: APIXABAN 2.5 MG TABLET (WCH) PO ×2 (08:35→21:13)
[2023-12-02] MEDS: Multivitamins,Ther W-Minerals Tablet 1 TABLET PO (08:35)
[2023-12-02] MEDS: Senna/Docusate Sodium 1 Tablet PO ×2 (08:35→21:13)
[2023-12-02] MEDS: Amox/Clavulanate 500 MG Tablet PO ×2 (08:35→16:55)
[2023-12-02] MEDS: Ferrous Sulfate 325 MG Tablet PO (08:35)
[2023-12-02] MEDS: Escitalopram Oxalate 10 MG Tablet 5 MG PO (08:35)
[2023-12-02 09:45] VITALS: BP 151/64; PULSE 69; RESP 18; TEMP 36.4; O2SAT 93
[2023-12-02 13:48] VITALS: BMI 24.0
[2023-12-02] MEDS: traMADol 50 MG Tablet PO ×2 (14:48→21:12)
[2023-12-02] MEDS: 0.9% Saline Lock 10 ML Syringe IV (14:52)
[2023-12-02 21:00] VITALS: BP 134/59; PULSE 69; RESP 16; TEMP 37.4; O2SAT 97; BMI 24.0
[2023-12-02] MEDS: Donepezil HCl 5 MG Tablet PO (21:13)
[2023-12-02] MEDS: Psyllium 1 PACKET PO (21:13)
[2023-12-03] MEDS: Acetaminophen 500 MG Tablet 1000 MG PO ×3 (05:23→20:44)
[2023-12-03] MEDS: Levothyroxine 112 MCG Tablet PO (05:24)
[2023-12-03] MEDS: traMADol 50 MG Tablet PO ×3 (05:24→20:45)
[2023-12-03] MEDS: Multivitamins,Ther W-Minerals Tablet 1 TABLET PO (08:01)
[2023-12-03] MEDS: Escitalopram Oxalate 10 MG Tablet 5 MG PO (08:01)
[2023-12-03] MEDS: Pantoprazole Sodium 40 MG Tablet PO (08:01)
[2023-12-03] MEDS: Ferrous Sulfate 325 MG Tablet PO (08:02)
[2023-12-03] MEDS: Senna/Docusate Sodium 1 Tablet PO ×2 (08:02→20:45)
[2023-12-03] MEDS: APIXABAN 2.5 MG TABLET (WCH) PO ×2 (08:02→20:44)
[2023-12-03] MEDS: Amox/Clavulanate 500 MG Tablet PO ×2 (08:02→17:19)
[2023-12-03 09:46] VITALS: PULSE 69
[2023-12-03 10:00] VITALS: BP 149/72; PULSE 69; RESP 16; TEMP 36.6; O2SAT 96
[2023-12-03 10:52] VITALS: BP 148/79; BP 149/61; BP 150/67; PULSE 69
[2023-12-03 12:44] VITALS: BMI 24.0
[2023-12-03] MEDS: Donepezil HCl 5 MG Tablet PO (20:44)
[2023-12-03 20:45] VITALS: BP 119/68; PULSE 70; RESP 16; TEMP 36.7; O2SAT 97; BMI 24.0
[2023-12-03] MEDS: Psyllium 1 PACKET PO (20:45)
--- NOTE | 2023-12-04 02:58 | NURSING ---
Reviewed and agree with Ede RAMIREZ, documentation and assessment charting.
[2023-12-04] MEDS: 0.9% Saline Lock 10 ML Syringe IV (04:20)
[2023-12-04] MEDS: traMADol 50 MG Tablet PO ×2 (04:34→20:14)
[2023-12-04] MEDS: Acetaminophen 500 MG Tablet 1000 MG PO ×3 (05:12→20:36)
[2023-12-04] MEDS: Levothyroxine 112 MCG Tablet PO (05:14)
[2023-12-04 06:00] VITALS: BP 140/70; BP 142/67; BP 145/66; PULSE 70; PULSE 71; PULSE 73
[2023-12-04 07:26] VITALS: BP 150/78; PULSE 69; RESP 15; TEMP 36.4; O2SAT 97
[2023-12-04] MEDS: Multivitamins,Ther W-Minerals Tablet 1 TABLET PO (07:50)
[2023-12-04] MEDS: Ferrous Sulfate 325 MG Tablet PO (07:51)
[2023-12-04] MEDS: Amox/Clavulanate 500 MG Tablet PO ×2 (07:51→17:18)
[2023-12-04] MEDS: APIXABAN 2.5 MG TABLET (WCH) PO ×2 (09:52→20:44)
[2023-12-04] MEDS: Escitalopram Oxalate 10 MG Tablet 5 MG PO (09:53)
[2023-12-04] MEDS: Pantoprazole Sodium 40 MG Tablet PO (09:53)
[2023-12-04] MEDS: Senna/Docusate Sodium 1 Tablet PO ×2 (09:54→20:38)
--- NOTE | 2023-12-04 10:00 | PCM.PROGNOTE ---
Subjective Subjective Day #4 Augmentin for acute cystitis Afebrile VSS -systolic blood pressure is mildly elevated but the diastolics are always within normal limits. Heart rate is within normal limits. Maintaining appropriate oxygen saturation on RA-96 to 97%. Oral intake - FOOD good FLUIDS fair Having regular bowel movements. Discussed with nursing - no problems that need addressed Reviewed the THERAPY notes-fatigues easily. She stood for 2 trials in the parallel bars yesterday each being about 45 seconds. Able to transfer from the recliner to the bedside commode with a hemiwalker and max assist x 2. Trying to hold onto the walker with both hands. Medication list reviewed she is taking 50 mg of tramadol usually 3 times daily. The urine culture grew 11,000-25,000 colonies of mixed gram-positive organisms. It was a catheterized specimen. Will finish 5 days of Augmentin and then discontinue. She previously had a low-grade fever of 99.4 and since Augmentin was started fever has resolved. She denies dysuria. She feels that her pain is adequately controlled. She is sleeping well at night. She is having some pain in her right shoulder at the site of the clavicle fracture. She is requiring a lot of cueing not to use the RUE when she is working with therapy. Tabitha denies chest pain, cough, shortness of breath, lightheadedness, nausea/vomiting/abdominal pain, dysuria and calf pain. Objective Data Objective Data Vital Signs: Vital Signs Temp Pulse Resp BP Pulse Ox O2 Del Method 97.6 F L 69 15 150/78 H 97 Room Air 12/04/23 07:26 12/04/23 07:26 12/04/23 07:26 12/04/23 07:26 12/04/23 07:26 12/04/23 07:26 Oxygen Delivery Method Room Air Weight: 158 lb 4.67 oz Body Mass Index (BMI) 24.0 Intake & Output: Intake and Output for Last 24 Hours 12/02/23 12/03/23 12/04/23 23:59 23:59 23:59 Intake Total 150 / 150 400 / 400 Output Total 200 / 200 700 / 700 450 / 450 Balance -50 / -50 -700 / -700 -50 / -50 Lab / Micro Data 12/01/23 08:57 12/01/23 08:57 Micro: Microbiology 12/01/23 02:15 Urine Catheter - Catheter Urine Culture - Final Mixed Gram Positive Organisms 11/30/23 22:23 Stool Stool Occult Blood (DELIA) - Final Occult Blood Positive Physical Exam Const alert Constitutional Narrative: She is lying in bed and does not appear to be in any distress. General Appearance: cooperative Orientation / Consciousness: confused HEENT HEENT Narrative: Mucous membranes are mildly dry. No thrush. Resp normal respiratory effort and clear to auscultation bilaterally Resp Narrative: No cough. Effort and Inspection: Negative for tachypneic Cardio Cardio Narrative: Irregular irregular with normal heart rate GI normal to inspection, nondistended, normoactive bowel sounds, soft to palpation and non-tender GI Narrative: No guarding with palpation Extremity no calf tenderness General Extremity: Negative for edema Skin General Skin Exam: no breakdown Rashes: no rashes Assessment & Plan Assessment/Plan (1) Physical debility: (2) Fall: QUALIFIERS: Encounter type: subsequent encounter Qualified Code(s): W19.XXXD - Unspecified fall, subsequent encounter (3) Acute pain due to trauma: (4) Right clavicle fracture: QUALIFIERS: Encounter type: subsequent encounter Clavicle location: unspecified part of clavicle Fracture type: closed Fracture alignment: nondisplaced (5) Fracture of right superior pubic ramus: QUALIFIERS: Encounter type: subsequent encounter Fracture type: closed (6) Fracture of right inferior pubic ramus: QUALIFIERS: Encounter type: subsequent encounter Fracture type: closed PLAN: Plan 1. Continue therapy 2. Start lactobacillus 1 p.o. twice daily for total of 10 doses. 3. Discontinue Augmentin after 10 doses. 4. Recheck a BMP and CBC in the AM. 5. Try a Lidoderm patch on the right distal clavicle area for better pain control 6. May need SNF at [place] from rehab........I do not see her being able to maintain NWB on the RUE without 28/03 supervision. She is afraid to ambulate and endurance is limited at this time. Charges/Coding Visit Charges Inpatient E&M: 17411 Subs Hosp L1
[2023-12-04] MEDS: Lactobacillis Acidophilus 1 CAP PO ×2 (14:05→20:37)
[2023-12-04] MEDS: Lidocaine 5% Patch 1 PATCH TOPICAL (14:05)
[2023-12-04 16:02] VITALS: BMI 24.0
[2023-12-04] MEDS: Donepezil HCl 5 MG Tablet PO (20:36)
[2023-12-04] MEDS: Psyllium 1 PACKET PO (20:42)
[2023-12-04 22:00] VITALS: BP 133/59; PULSE 69; RESP 16; TEMP 36.7; O2SAT 97
[2023-12-05 02:23] VITALS: BMI 24.0
[2023-12-05] MEDS: traMADol 50 MG Tablet PO ×3 (04:16→20:21)
[2023-12-05 05:49] LABS: Hematocrit 31.1 % (37-47); Hemoglobin 9.8 g/dL (12.0-15.0); Mean Corp Hgb Conc 31.5 g/dL (32-36); Mean Corpuscular Hgb 29.9 pg (27.0-32.0); Mean Corpuscular Volume 94.8 fL (81-99); Mean Platelet Vol. 10.2 fl (6.2-12.0); Platelet Count 183 K/mm3 (150-450); RBC Distribution Width CV 13.2 % (11.6-14.6); RBC Distribution Width SD 46.3 fl (35.1-43.9); Red Blood Count 3.28 M/mm3 (4.2-5.4); White Blood Count 5.8 K/mm3 (4.4-11.0)
[2023-12-05 06:16] LABS: Anion Gap 3 (5-15); BUN 33 mg/dL (7-18); BUN/Creat Ratio 38.8 RATIO (10-20); Calcium,Total 9.1 mg/dL (8.5-10.1); Chloride 108 mmol/L (98-107); Creatinine, Serum 0.85 mg/dL (0.55-1.02); EST Glomerular Filtration Rate 67 mL/min (>60); Est Glom Filt Rate - Afr Amer 81 mL/min (>60); Estimated Creatinine Clearance 47.04 ml/min; Glucose 100 mg/dL (74-106); Sodium Level 139 mmol/L (136-145)
[2023-12-05] MEDS: Levothyroxine 112 MCG Tablet PO (06:40)
[2023-12-05] MEDS: Acetaminophen 500 MG Tablet 1000 MG PO ×4 (06:40→20:21)
[2023-12-05 07:12] VITALS: BP 138/59; PULSE 69; RESP 16; TEMP 36.8; O2SAT 97
[2023-12-05] MEDS: Ferrous Sulfate 325 MG Tablet PO (08:19)
[2023-12-05] MEDS: Multivitamins,Ther W-Minerals Tablet 1 TABLET PO (08:20)
[2023-12-05] MEDS: Senna/Docusate Sodium 1 Tablet PO ×2 (08:20→22:03)
[2023-12-05] MEDS: Lactobacillis Acidophilus 1 CAP PO ×2 (08:20→22:03)
[2023-12-05] MEDS: Escitalopram Oxalate 10 MG Tablet 5 MG PO (08:20)
[2023-12-05] MEDS: Amox/Clavulanate 500 MG Tablet PO ×2 (08:20→17:43)
[2023-12-05] MEDS: Pantoprazole Sodium 40 MG Tablet PO ×2 (08:20→22:00)
[2023-12-05] MEDS: Lidocaine 5% Patch 1 PATCH TOPICAL (08:21)
[2023-12-05] MEDS: APIXABAN 2.5 MG TABLET (WCH) PO (08:21)
[2023-12-05] MEDS: 0.9% Saline Lock 10 ML Syringe IV ×2 (08:31→20:22)
--- NOTE | 2023-12-05 12:48 | CASEMGMT ---
Addendum entered by Jose F Bland 12/05/23 13:30: Patient and family was notified of insurance Medicare approval for 11 days; Medicare estimated discharge date 12/15/2023. Original Note: Social Work IDT group meeting with patient and family at bedside. Patient has significant family support for care. Patient goal is to return home with family. Patient does not have 24hr care in the home. SW encouraged increased family supervision for support. Patient family is concerned about patient mentation due to forgetfulness and confusion. Physician reviewed medication recommendation. Patient orientation has improved during admission. SW discussed potential transition of care plans for home health care, fpc facility, and assisted living. Family goal is for home health care pending progress with therapy SW to continue to follow to assist family with care planning. CHELSEY Jacobsen.
--- NOTE | 2023-12-05 16:20 | PN_ITS ---
Subjective Subjective Tabitha was seen on team rounds today. 2 of her sons were present in the room and also her dry chain operator and a good friend. All their questions were answered to their satisfaction. They #5/5 for acute cystitis. Will DC after the last dose today. Afebrile VSS Maintaining appropriate oxygen saturation on RA Oral intake - FOOD good FLUIDS currently not being recorded Discussed with nursing -night nursing reported that she had increased pain and was uncomfortable last night. She only took 2 doses of tramadol yesterday and has been taking 3. She is also on scheduled Tylenol 1 g p.o. every 8 hours. Reviewed the THERAPY notes-she is making progress. She was able to take 6 steps in the parallel bars. Has difficulty remembering to not wt bear on the R shoulder. Medication list reviewed. Tabitha denies cephalgia, lightheadedness, chest pain, shortness of breath, nausea/vomiting/abdominal pain, dysuria and calf tenderness. She tells me that her right shoulder is sore. When I palpate the clavicle she had less pain than yesterday prior to the lidocaine patch. she is getting the patch applied at 1300 so she did not have the patch on when doing therapy this morning. No diarrhea. Hemoglobin today is down to 9.8 from 11.1 on 12/01/2023. Hemoccult stool was positive and she was started on a PPI. The BUN/creatinine ratio is elevated at 38.8. Creatinine is stable. I think the drop in hemoglobin is most likely due to Hemoccult positive stool and not to better hydration. Will recheck a HGB in the AM and if it continues to drop may need to consult GI. Will also increase the Protonix to twice daily for the next 1 to 2 weeks. Objective Data Objective Data Vital Signs: Vital Signs Temp Pulse Resp BP Pulse Ox O2 Del Method 98.2 F 69 16 138/59 H 97 Room Air 12/05/23 07:12 12/05/23 07:12 12/05/23 07:12 12/05/23 07:12 12/05/23 07:12 12/05/23 10:00 Oxygen Delivery Method Room Air Weight: 158 lb 4.67 oz Body Mass Index (BMI) 24.0 Intake & Output: Intake and Output for Last 24 Hours 12/03/23 12/04/23 12/05/23 23:59 23:59 23:59 Intake Total 520 / 520 360 / 360 Output Total 700 / 700 650 / 650 450 / 450 Balance -700 / -700 -130 / -130 -90 / -90 Lab / Micro Data 12/05/23 05:29 12/05/23 05:29 Labs: Laboratory Results - last 24 hr 12/05/23 05:29: WBC 5.8, RBC 3.28 L, Hgb 9.8 L, Hct 31.1 L, MCV 94.8, MCH 29.9, MCHC 31.5 L, RDW Std Deviation 46.3 H, RDW Coeff of Radha 13.2, Plt Count 183, MPV 10.2, Sodium 139, Potassium 4.0, Chloride 108 H, Carbon Dioxide 28.0, Anion Gap 3 L, BUN 33 H, Creatinine 0.85, Estim Creat Clear Calc 47.04, Est GFR (MDRD) Af Amer 81, Est GFR (MDRD) Non-Af 67, BUN/Creatinine Ratio 38.8 H, Glucose 100, Calcium 9.1 Micro: Microbiology 12/01/23 02:15 Urine Catheter - Catheter Urine Culture - Final Mixed Gram Positive Organisms 11/30/23 22:23 Stool Stool Occult Blood (DELIA) - Final Occult Blood Positive Physical Exam Const alert Constitutional Narrative: She is sitting up in the recliner and looks comfortable. She does not look like she is in pain. She is participating in the conversation. General Appearance: cooperative Orientation / Consciousness: confused HEENT HEENT Narrative: Mucous membranes are mildly dry. No thrush. Resp normal respiratory effort and clear to auscultation bilaterally Resp Narrative: No cough. Effort and Inspection: Negative for tachypneic Cardio no gallops Cardio Narrative: Irregular irregular with normal heart rate GI normal to inspection, nondistended, normoactive bowel sounds, soft to palpation and non-tender GI Narrative: No guarding with palpation Extremity no calf tenderness General Extremity: Negative for edema Skin General Skin Exam: no breakdown Rashes: no rashes Psych cooperative Appearance: appropriate Activity / Motor Behavior: Negative for restless Assessment & Plan Assessment/Plan (1) Physical debility: (2) Fall: QUALIFIERS: Encounter type: subsequent encounter Qualified Code(s): W19.XXXD - Unspecified fall, subsequent encounter (3) Acute pain due to trauma: (4) Right clavicle fracture: QUALIFIERS: Encounter type: subsequent encounter Clavicle location: unspecified part of clavicle Fracture type: closed Fracture alignment: nondisplaced (5) Fracture of right superior pubic ramus: QUALIFIERS: Encounter type: subsequent encounter Fracture type: closed (6) Fracture of right inferior pubic ramus: QUALIFIERS: Encounter type: subsequent encounter Fracture type: closed (7) Acute cystitis: QUALIFIERS: Hematuria presence: without hematuria Qualified Code(s): N30.00 - Acute cystitis without hematuria (8) Heme positive stool: PLAN: Plan 1. Continue therapy 2. She does not remember to call for a pain medication when she starts to get uncomfortable. Will schedule the Tramadol and give Tylenol in between the doses of Tramadol. 3. She is making progress in therapy and is now taking steps and able to stand and pivot. Unsure if she will be able to go home at DC from rehab. She has a dry chain operator at home and the dry chain operator is willing to stay at night for the first few weeks after DC. Will reassess next week at rounds how much progress she has made.......if therapy thinks she may be able to do OK at home will have her dry chain operator come in for family training prior to DC. 4. Recheck hemoglobin in the AM and increase Protonix to twice daily. Place apixaban on hold for now. Charges/Coding Visit Charges Inpatient E&M: 98269 Subs Hosp L2
[2023-12-05 17:00] VITALS: BMI 24.0
[2023-12-05 20:00] VITALS: BP 149/72; PULSE 71; RESP 20; TEMP 36.8; O2SAT 98
[2023-12-05] MEDS: Donepezil HCl 5 MG Tablet PO (22:00)
[2023-12-06] MEDS: traMADol 50 MG Tablet PO ×3 (03:28→21:22)
[2023-12-06] MEDS: Levothyroxine 112 MCG Tablet PO (05:21)
[2023-12-06] MEDS: Lidocaine 5% Patch 1 PATCH TOPICAL (05:21)
[2023-12-06 05:55] LABS: Hematocrit 32.9 % (37-47); Hemoglobin 10.5 g/dL (12.0-15.0)
[2023-12-06] MEDS: Ferrous Sulfate 325 MG Tablet PO (09:05)
[2023-12-06] MEDS: Acetaminophen 500 MG Tablet 1000 MG PO ×3 (09:06→20:07)
[2023-12-06] MEDS: Pantoprazole Sodium 40 MG Tablet PO ×2 (09:06→20:07)
[2023-12-06] MEDS: Senna/Docusate Sodium 1 Tablet PO (09:06)
[2023-12-06] MEDS: Multivitamins,Ther W-Minerals Tablet 1 TABLET PO (09:06)
[2023-12-06] MEDS: Lactobacillis Acidophilus 1 CAP PO ×2 (09:06→20:07)
[2023-12-06] MEDS: Escitalopram Oxalate 10 MG Tablet 5 MG PO (09:06)
[2023-12-06 10:00] VITALS: BP 150/80; PULSE 72; RESP 16; TEMP 36.7; O2SAT 92
--- NOTE | 2023-12-06 11:58 | PCM.PROGNOTE ---
Subjective Subjective Afebrile VSS Maintaining appropriate oxygen saturation on RA Oral intake - FOOD good FLUIDS Not being monitored. Discussed with nursing - polar care effective last night in controlling pain. Sleeping well at night and has a good appetite. Reviewed the THERAPY notes-PT documented that she did not seem less painful today. Medication list reviewed. Hemoglobin today is stable at 10.5. Started on Protonix yesterday for heme + stool. Denies lightheadedness, CP, SOB, palpitations, N/V/abd pain, dysuria and calf pain. Did not c/o R shoulder pain until I asked. She has the Polar Care on her shoulder and she states this helps. She tells me she is sleeping well at night. Objective Data Objective Data Vital Signs: Vital Signs Temp Pulse Resp BP Pulse Ox O2 Del Method 98.2 F 71 20 H 149/72 H 98 Room Air 12/05/23 20:00 12/05/23 20:00 12/05/23 20:00 12/05/23 20:00 12/05/23 20:00 12/05/23 20:25 Oxygen Delivery Method Room Air Weight: 158 lb 4.67 oz Body Mass Index (BMI) 24.0 Intake & Output: Intake and Output for Last 24 Hours 12/04/23 12/05/23 12/06/23 23:59 23:59 23:59 Intake Total 520 / 520 760 / 760 Output Total 650 / 650 450 / 450 600 / 600 Balance -130 / -130 310 / 310 -600 / -600 Lab / Micro Data 12/06/23 05:25 12/05/23 05:29 Labs: Laboratory Results - last 24 hr 12/06/23 05:25: Hgb 10.5 L, Hct 32.9 L Micro: Microbiology 12/01/23 02:15 Urine Catheter - Catheter Urine Culture - Final Mixed Gram Positive Organisms 11/30/23 22:23 Stool Stool Occult Blood (DELIA) - Final Occult Blood Positive Physical Exam Const alert Constitutional Narrative: She appears to be in no distress when I see her and she is eating her supper. She is pleasant and talkative. General Appearance: cooperative Orientation / Consciousness: confused HEENT HEENT Narrative: Mucous membranes are mildly dry. No thrush. Resp normal respiratory effort and clear to auscultation bilaterally Resp Narrative: No cough. Effort and Inspection: Negative for tachypneic Cardio no murmurs and no gallops Cardio Narrative: Irregular irregular with normal heart rate GI normal to inspection, nondistended, normoactive bowel sounds, soft to palpation and non-tender GI Narrative: No guarding with palpation Extremity no calf tenderness General Extremity: Negative for edema Skin General Skin Exam: no breakdown Rashes: no rashes Psych cooperative Appearance: appropriate Activity / Motor Behavior: Negative for restless Assessment & Plan Assessment/Plan (1) Physical debility: (2) Fall: QUALIFIERS: Encounter type: subsequent encounter Qualified Code(s): W19.XXXD - Unspecified fall, subsequent encounter (3) Acute pain due to trauma: (4) Right clavicle fracture: QUALIFIERS: Encounter type: subsequent encounter Clavicle location: unspecified part of clavicle Fracture type: closed Fracture alignment: nondisplaced (5) Fracture of right superior pubic ramus: QUALIFIERS: Encounter type: subsequent encounter Fracture type: closed (6) Fracture of right inferior pubic ramus: QUALIFIERS: Encounter type: subsequent encounter Fracture type: closed (7) Heme positive stool: PLAN: Plan 1. Continue therapy 2. No adjustments to the medication regimen today. She seems to be doing better with scheduled tramadol rather than as needed. Charges/Coding Visit Charges Inpatient E&M: 55018 [facility] Hosp L1
[2023-12-06 15:52] VITALS: BMI 24.0
[2023-12-06] MEDS: traMADol 50 MG Tablet 25 MG PO (16:38)
[2023-12-06] MEDS: Donepezil HCl 5 MG Tablet PO (20:07)
[2023-12-06] MEDS: Psyllium 1 PACKET PO (20:07)
[2023-12-06 20:36] VITALS: BP 117/59; PULSE 69; RESP 18; TEMP 35.8; O2SAT 98
[2023-12-06 23:31] VITALS: BMI 24.0
[2023-12-07] MEDS: Levothyroxine 112 MCG Tablet PO (05:00)
[2023-12-07] MEDS: 0.9% Saline Lock 10 ML Syringe IV (05:01)
[2023-12-07 05:05] VITALS: BMI 24.5
[2023-12-07] MEDS: traMADol 50 MG Tablet PO ×2 (06:37→21:56)
[2023-12-07 07:03] VITALS: BP 144/68; PULSE 70; RESP 17; TEMP 36.2; O2SAT 96
[2023-12-07] MEDS: Senna/Docusate Sodium 1 Tablet PO (08:04)
[2023-12-07] MEDS: Pantoprazole Sodium 40 MG Tablet PO ×2 (08:04→20:54)
[2023-12-07] MEDS: Lidocaine 5% Patch 1 PATCH TOPICAL (08:04)
[2023-12-07] MEDS: Escitalopram Oxalate 10 MG Tablet 5 MG PO (08:04)
[2023-12-07] MEDS: Lactobacillis Acidophilus 1 CAP PO ×2 (08:04→20:55)
[2023-12-07] MEDS: Acetaminophen 500 MG Tablet 1000 MG PO ×3 (08:05→20:54)
[2023-12-07] MEDS: Ferrous Sulfate 325 MG Tablet PO (08:05)
[2023-12-07] MEDS: Multivitamins,Ther W-Minerals Tablet 1 TABLET PO (08:05)
--- NOTE | 2023-12-07 11:44 | CASEMGMT ---
Social Work Dave from [facility] services called office to notify SW that while patient has 2 sons they do not live local and not able to provide much support. Pt does have hired caregive for a couple hours each day. A couple years ago [facility] assisted patient with moving into an Assisted Living. Pt moved in but then became very anxious and called her sons and they moved her back home. [facility] will continue to follow if patient does return home after rehab stay. Guillermina FIGUEROA
[2023-12-07] MEDS: traMADol 50 MG Tablet 25 MG PO ×2 (12:26→17:11)
[2023-12-07 16:19] VITALS: BMI 24.5
[2023-12-07] MEDS: Psyllium 1 PACKET PO (20:55)
[2023-12-07] MEDS: Donepezil HCl 5 MG Tablet PO (20:55)
[2023-12-07 21:00] VITALS: BP 117/63; PULSE 70; RESP 16; TEMP 36.2; O2SAT 97
[2023-12-07 23:24] VITALS: BMI 24.5
[2023-12-08] MEDS: traMADol 50 MG Tablet PO ×2 (06:28→21:27)
[2023-12-08] MEDS: Levothyroxine 112 MCG Tablet PO (06:29)
[2023-12-08] MEDS: Lidocaine 5% Patch 1 PATCH TOPICAL (06:29)
[2023-12-08] MEDS: Acetaminophen 500 MG Tablet 1000 MG PO ×3 (08:21→20:02)
[2023-12-08] MEDS: Lactobacillis Acidophilus 1 CAP PO ×2 (08:22→21:29)
[2023-12-08] MEDS: Multivitamins,Ther W-Minerals Tablet 1 TABLET PO (08:22)
[2023-12-08] MEDS: Escitalopram Oxalate 10 MG Tablet 5 MG PO (08:22)
[2023-12-08] MEDS: Pantoprazole Sodium 40 MG Tablet PO ×2 (08:22→21:29)
[2023-12-08] MEDS: Ferrous Sulfate 325 MG Tablet PO (08:22)
[2023-12-08 09:04] VITALS: BP 162/71; PULSE 70; RESP 16; TEMP 36.7; O2SAT 96
--- NOTE | 2023-12-08 10:11 | PCM.PROGNOTE ---
Subjective Subjective Afebrile VSS-systolic blood pressure during the days is elevated at the diastolics are within normal limits. Systolic blood pressure at at bedtime the past 2 days has been 117. She is not on an antihypertensive. Maintaining appropriate oxygen saturation on RA Oral intake - FOOD good FLUIDS not being recorded. Discussed with nursing - no problems that need addressed Reviewed the THERAPY notes Medication list reviewed. She has no complaints when I ask her how she is doing. If I ask her about pain she c/o shoulder pain......she never complains to me of pelvic pain. Still requiring a lot of sueing not to bear weight on the RUE. Objective Data Objective Data Vital Signs: Vital Signs Temp Pulse Resp BP Pulse Ox O2 Del Method 98.1 F 70 16 162/71 H 96 Room Air 12/08/23 09:04 12/08/23 09:04 12/08/23 09:04 12/08/23 09:04 12/08/23 09:04 12/08/23 09:04 Oxygen Delivery Method Room Air Weight: 161 lb Body Mass Index (BMI) 24.5 Intake & Output: Intake and Output for Last 24 Hours 12/06/23 12/07/23 12/08/23 23:59 23:59 23:59 Intake Total 480 / 480 240 / 240 Output Total 600 / 600 400 / 400 200 / 200 Balance -600 / -600 80 / 80 40 / 40 Lab / Micro Data 12/06/23 05:25 12/05/23 05:29 Micro: Microbiology 12/01/23 02:15 Urine Catheter - Catheter Urine Culture - Final Mixed Gram Positive Organisms 11/30/23 22:23 Stool Stool Occult Blood (DELIA) - Final Occult Blood Positive Physical Exam Const alert General Appearance: cooperative Orientation / Consciousness: confused HEENT HEENT Narrative: Mucous membranes are mildly dry. No thrush. Resp normal respiratory effort and clear to auscultation bilaterally Resp Narrative: No cough. Effort and Inspection: Negative for tachypneic Cardio no murmurs and no gallops Cardio Narrative: Irregular irregular with normal heart rate GI normal to inspection, nondistended, normoactive bowel sounds, soft to palpation and non-tender GI Narrative: No guarding with palpation Extremity no calf tenderness General Extremity: Negative for edema Skin General Skin Exam: no breakdown Rashes: no rashes Psych cooperative Appearance: appropriate Activity / Motor Behavior: Negative for restless Assessment & Plan Assessment/Plan (1) Physical debility: (2) Fall: QUALIFIERS: Encounter type: subsequent encounter Qualified Code(s): W19.XXXD - Unspecified fall, subsequent encounter (3) Acute pain due to trauma: (4) Right clavicle fracture: QUALIFIERS: Encounter type: subsequent encounter Clavicle location: unspecified part of clavicle Fracture type: closed Fracture alignment: nondisplaced (5) Fracture of right superior pubic ramus: QUALIFIERS: Encounter type: subsequent encounter Fracture type: closed (6) Fracture of right inferior pubic ramus: QUALIFIERS: Encounter type: subsequent encounter Fracture type: closed (7) Heme positive stool: PLAN: Was started on Protonix. No c/o nausea/vomiting/epigastric pain. Eating well. Good bowel function. BS not hyperactive. PLAN: Plan 1. Continue therapy 2. 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 3. Tabitha does not complain of pain unless she is asked and then she says yes and asks for pain medication. She seems to be doing well on scheduled tramadol. 4. Recheck BMP and CBC on Tuesday. 5. Continue scheduled tramadol and Tylenol. Start tapering tramadol sometime next week. 6. She is making slow progress with PT/OT. ST feels she is likely at her baseline with cognition. 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 today she was able to stand pivot to/from the 3 in 1 commode over the toilet using a hemiwalker at mod/max assist. Toileting tasks are still requiring max assist for management of clothing and posterior care. She was able to wash her hands, face and brush her teeth at set up while seated at the sink. Charges/Coding Visit Charges Inpatient E&M: 31311 Subs Hosp L1
[2023-12-08] MEDS: traMADol 50 MG Tablet 25 MG PO ×2 (11:56→17:25)
[2023-12-08] MEDS: 0.9% Saline Lock 10 ML Syringe IV ×2 (11:58→21:34)
--- NOTE | 2023-12-08 13:07 | CASEMGMT ---
Social Work SW met with patient at bedside to discuss transition of care plans. SW notified the patient of Medicare cut date; 12/14. SW inquired about the patient's goals for discharge. Patient informed SW that she does not believe she can return home at this time. Patient is requesting continued therapy on TCU. SW discussed potential placement in a SNF with patient. SW discussed patient's advanced directive. Patient informed SW that she has an AD, but her () is listed as primary decision maker. Alternative/secondary decision maker are sons, Phill Quinn and Oleksandr Quinn. Patient informed SW that if DPOA update is required, she would like her son, Oleksandr Quinn listed as primary as he resides in [place] and Phill Quinn as secondary. SW will follow up with patient to update DPOA paperwork as needed. CHELSEY Jacobsen
[2023-12-08 14:32] VITALS: BMI 24.5
--- NOTE | 2023-12-08 15:33 | CHAPLAIN ---
Type of Pastoral Visit ___ Initial Visit _x__ Follow-up Visit ___ On-call Visit ___ General Patient Visit ___ Spiritual Assessment ___ Family Conference ___ Bereavement ___ Rapid Response ___ Code Blue ___ Other (describe below) Pastoral Care Referral From _x__ Patient _x__ Family ___ Nurse ___ Physician ___ Wetland Scientist ___ Ribbon Lap Machine Tender ___ Other (describe below) Sacrament/Intervention _x__ Active listening ___ Anointing ___ Mormon ___ Bereavement ___ Communion ___ Mary exploration ___ ___ Life review _x__ Prayer ___ Reconciliation ___ Sacrament of Sick _x__ Supportive presence ___ Wedding ___ Other (describe below) Pastoral Comments patient was seen when in [place] recently but she does not remember this cloth printing back tender; pt is pleasant and welcoming and receives comments and offers of support; pt has been reading and agrees that this is a better activity than watching TV; pt is given encouraging words and compliments on her endeavors at therapy; comments of support bring tears to eyes of patient and she expresses appreciation; pt would like prayers spoken for her and given; again pt is in tears because that was so good to hear; pt welcomes this cloth printing back tender for another visit at a later time
[2023-12-08 19:14] VITALS: BP 122/54; PULSE 67; RESP 17; TEMP 36.8; O2SAT 94
[2023-12-08 20:06] VITALS: BMI 24.5
[2023-12-08 20:11] VITALS: PULSE 67; RESP 16; O2SAT 96
[2023-12-08] MEDS: Senna/Docusate Sodium 1 Tablet PO (21:29)
[2023-12-08] MEDS: Donepezil HCl 5 MG Tablet PO (21:29)
[2023-12-08] MEDS: Psyllium 1 PACKET PO (22:12)
[2023-12-09] MEDS: Multivitamins,Ther W-Minerals Tablet 1 TABLET PO (07:45)
[2023-12-09] MEDS: Ferrous Sulfate 325 MG Tablet PO (07:45)
[2023-12-09] MEDS: Lidocaine 5% Patch 1 PATCH TOPICAL (07:45)
[2023-12-09] MEDS: Levothyroxine 112 MCG Tablet PO (07:45)
[2023-12-09] MEDS: Pantoprazole Sodium 40 MG Tablet PO ×2 (07:45→21:54)
[2023-12-09] MEDS: traMADol 50 MG Tablet PO ×2 (07:45→21:54)
[2023-12-09] MEDS: Escitalopram Oxalate 10 MG Tablet 5 MG PO (07:45)
[2023-12-09] MEDS: 0.9% Saline Lock 10 ML Syringe IV ×2 (07:49→21:54)
[2023-12-09] MEDS: Acetaminophen 500 MG Tablet 1000 MG PO ×3 (08:47→20:14)
[2023-12-09] MEDS: Senna/Docusate Sodium 1 Tablet PO (08:48)
[2023-12-09 08:49] VITALS: BP 159/66; PULSE 70; RESP 16; TEMP 36.6; O2SAT 94
[2023-12-09 11:21] VITALS: BMI 24.5
[2023-12-09] MEDS: traMADol 50 MG Tablet 25 MG PO ×2 (12:09→17:00)
--- NOTE | 2023-12-09 15:25 | CASEMGMT ---
Social Work SW was going to assist pt with completing new advanced directives form. stated she does not feel patient is cognitively appropriate to complete these forms. Pt does have DPOAHC form in chart that does list her sons as alternate POA's as her primary POA was her and he has . This form will remain current. Robyn Leonard
[2023-12-09 20:22] VITALS: BP 137/57; PULSE 70; RESP 16; TEMP 36.3; O2SAT 97
[2023-12-09] MEDS: Donepezil HCl 5 MG Tablet PO (21:54)
[2023-12-09 22:18] VITALS: BMI 24.5
--- NOTE | 2023-12-10 02:55 | NURSING ---
Reviewed and agree with Gil RAMIREZ, documentation and assessment charting.
[2023-12-10] MEDS: Levothyroxine 112 MCG Tablet PO (06:17)
[2023-12-10] MEDS: Lidocaine 5% Patch 1 PATCH TOPICAL (06:17)
[2023-12-10] MEDS: traMADol 50 MG Tablet PO ×2 (06:17→21:12)
[2023-12-10] MEDS: Ferrous Sulfate 325 MG Tablet PO (07:27)
[2023-12-10] MEDS: Multivitamins,Ther W-Minerals Tablet 1 TABLET PO (07:27)
[2023-12-10] MEDS: Escitalopram Oxalate 10 MG Tablet 5 MG PO (08:23)
[2023-12-10] MEDS: Acetaminophen 500 MG Tablet 1000 MG PO ×3 (08:24→20:25)
[2023-12-10] MEDS: Pantoprazole Sodium 40 MG Tablet PO ×2 (08:24→20:25)
[2023-12-10] MEDS: Senna/Docusate Sodium 1 Tablet PO ×2 (08:25→20:25)
[2023-12-10 09:53] VITALS: BP 138/69; PULSE 69; RESP 16; TEMP 36.4; O2SAT 98
[2023-12-10] MEDS: traMADol 50 MG Tablet 25 MG PO ×2 (11:58→17:05)
[2023-12-10 12:15] VITALS: BMI 24.5
[2023-12-10 20:20] VITALS: BP 129/63; PULSE 70; RESP 14; TEMP 36.6; O2SAT 96; BMI 24.5
[2023-12-10] MEDS: Donepezil HCl 5 MG Tablet PO (20:25)
[2023-12-10] MEDS: Psyllium 1 PACKET PO (20:26)
[2023-12-11] MEDS: traMADol 50 MG Tablet PO ×2 (06:26→22:01)
[2023-12-11] MEDS: Lidocaine 5% Patch 1 PATCH TOPICAL (06:26)
[2023-12-11] MEDS: Levothyroxine 112 MCG Tablet PO (06:26)
[2023-12-11] MEDS: Senna/Docusate Sodium 1 Tablet PO ×2 (07:53→21:58)
[2023-12-11] MEDS: Escitalopram Oxalate 10 MG Tablet 5 MG PO (07:53)
[2023-12-11] MEDS: Pantoprazole Sodium 40 MG Tablet PO ×2 (07:54→21:58)
[2023-12-11] MEDS: Ferrous Sulfate 325 MG Tablet PO (07:54)
[2023-12-11] MEDS: Multivitamins,Ther W-Minerals Tablet 1 TABLET PO (07:54)
[2023-12-11] MEDS: Acetaminophen 500 MG Tablet 1000 MG PO ×3 (08:09→21:30)
[2023-12-11 08:31] VITALS: BMI 24.5
[2023-12-11 08:41] VITALS: BP 154/65; PULSE 70; RESP 17; TEMP 36.7; O2SAT 98
[2023-12-11] MEDS: traMADol 50 MG Tablet 25 MG PO ×2 (13:00→17:21)
[2023-12-11 20:00] VITALS: BP 143/67; PULSE 71; RESP 16; TEMP 37.1; O2SAT 98
[2023-12-11 21:30] VITALS: PULSE 71; RESP 16; O2SAT 98; BMI 24.5
[2023-12-11] MEDS: Donepezil HCl 5 MG Tablet PO (21:58)
[2023-12-11] MEDS: Psyllium 1 PACKET PO (21:58)
[2023-12-12] MEDS: Lidocaine 5% Patch 1 PATCH TOPICAL (05:42)
[2023-12-12] MEDS: Levothyroxine 112 MCG Tablet PO (05:42)
[2023-12-12 05:44] LABS: Hematocrit 33.6 % (37-47); Hemoglobin 10.5 g/dL (12.0-15.0); Mean Corp Hgb Conc 31.3 g/dL (32-36); Mean Corpuscular Hgb 29.7 pg (27.0-32.0); Mean Corpuscular Volume 94.9 fL (81-99); Mean Platelet Vol. 9.7 fl (6.2-12.0); Platelet Count 287 K/mm3 (150-450); RBC Distribution Width CV 13.2 % (11.6-14.6); RBC Distribution Width SD 46.4 fl (35.1-43.9); Red Blood Count 3.54 M/mm3 (4.2-5.4); White Blood Count 7.3 K/mm3 (4.4-11.0)
[2023-12-12 06:19] LABS: Anion Gap 2 (5-15); BUN 33 mg/dL (7-18); BUN/Creat Ratio 33.6 RATIO (10-20); Chloride 107 mmol/L (98-107); Creatinine, Serum 0.98 mg/dL (0.55-1.02); EST Glomerular Filtration Rate 57 mL/min (>60); Est Glom Filt Rate - Afr Amer 69 mL/min (>60); Glucose 86 mg/dL (74-106); Potassium 4.6 mmol/L (3.5-5.1); Sodium Level 138 mmol/L (136-145)
[2023-12-12] MEDS: traMADol 50 MG Tablet PO ×2 (07:00→22:00)
[2023-12-12] MEDS: Ferrous Sulfate 325 MG Tablet PO (08:04)
[2023-12-12] MEDS: Multivitamins,Ther W-Minerals Tablet 1 TABLET PO (08:04)
[2023-12-12] MEDS: Escitalopram Oxalate 10 MG Tablet 5 MG PO (08:05)
[2023-12-12] MEDS: Pantoprazole Sodium 40 MG Tablet PO ×2 (08:06→21:58)
[2023-12-12 08:14] VITALS: BP 160/70; PULSE 69; RESP 18; TEMP 36.5; O2SAT 96
[2023-12-12] MEDS: Acetaminophen 500 MG Tablet 1000 MG PO ×3 (08:52→21:00)
[2023-12-12 10:50] VITALS: BMI 24.5
[2023-12-12] MEDS: traMADol 50 MG Tablet 25 MG PO ×2 (11:31→17:36)
--- NOTE | 2023-12-12 12:23 | PCM.PROGNOTE ---
Subjective Subjective Tabitha was seen on team rounds today. Her deputy coroner investigator Krupa and her friend Braxton were present in the room. Her son Oleksandr participated by phone. Afebrile VSS-systolic blood pressure for the past 24 hours has ranged from 143/67 to 160/78. Diastolics are always within goal. Heart rate is within normal limits. She is not currently taking an antihypertensive. Maintaining appropriate oxygen saturation on RA Oral intake - FOOD excellent FLUIDS fair Discussed with nursing - no problems that need addressed Reviewed the THERAPY notes Medication list reviewed. All lab drawn this morning was personally reviewed. The white blood cell count is normal at 7.3. Hemoglobin is stable at 10.5 and platelets are within normal limits. Sodium is 138 and the potassium is 4.6. BUN is elevated at 33 but stable. Creatinine is 0.98 which is within her baseline. Tabitha tells me she is sleeping well and she has a good appetite. Her bowels are moving regularly. She denies any dysuria. She denies cough, shortness of breath, chest pain, nausea/vomiting/abdominal pain and lightheadedness. Objective Data Objective Data Vital Signs: Vital Signs Temp Pulse Resp BP Pulse Ox O2 Del Method 97.7 F L 69 18 160/70 H 96 Room Air 12/12/23 08:14 12/12/23 08:14 12/12/23 08:14 12/12/23 08:14 12/12/23 08:14 12/12/23 08:14 Oxygen Delivery Method Room Air Weight: 161 lb Body Mass Index (BMI) 24.5 Intake & Output: Intake and Output for Last 24 Hours 12/10/23 12/11/23 12/12/23 23:59 23:59 23:59 Intake Total 1200 / 1200 240 / 240 Output Total 880 / 880 300 / 300 Balance 320 / 320 -300 / -300 240 / 240 Lab / Micro Data 12/12/23 05:25 12/12/23 05:25 Labs: Laboratory Results - last 24 hr 12/12/23 05:25: WBC 7.3, RBC 3.54 L, Hgb 10.5 L, Hct 33.6 L, MCV 94.9, MCH 29.7, MCHC 31.3 L, RDW Std Deviation 46.4 H, RDW Coeff of Radha 13.2, Plt Count 287, MPV 9.7, Sodium 138, Potassium 4.6, Chloride 107, Carbon Dioxide 29.0, Anion Gap 2 L, BUN 33 H, Creatinine 0.98, Estim Creat Clear Calc 40.80, Est GFR (MDRD) Af Amer 69, Est GFR (MDRD) Non-Af 57 L, BUN/Creatinine Ratio 33.6 H, Glucose 86, Calcium 9.0 Micro: Microbiology 12/01/23 02:15 Urine Catheter - Catheter Urine Culture - Final Mixed Gram Positive Organisms 11/30/23 22:23 Stool Stool Occult Blood (DELIA) - Final Occult Blood Positive Physical Exam Const alert General Appearance: cooperative HEENT HEENT Narrative: Mucous membranes are mildly dry. No thrush. Resp normal respiratory effort and clear to auscultation bilaterally Resp Narrative: No cough. Effort and Inspection: Negative for tachypneic Cardio no murmurs and no gallops Cardio Narrative: Irregular irregular with normal heart rate GI normal to inspection, nondistended, normoactive bowel sounds, soft to palpation and non-tender GI Narrative: No guarding with palpation Extremity no calf tenderness General Extremity: Negative for edema Skin General Skin Exam: no breakdown Rashes: no rashes Psych cooperative Appearance: appropriate Activity / Motor Behavior: Negative for restless Assessment & Plan Assessment/Plan (1) Physical debility: (2) Fall: QUALIFIERS: Encounter type: subsequent encounter Qualified Code(s): W19.XXXD - Unspecified fall, subsequent encounter (3) Acute pain due to trauma: (4) Right clavicle fracture: QUALIFIERS: Encounter type: subsequent encounter Clavicle location: unspecified part of clavicle Fracture type: closed Fracture alignment: nondisplaced (5) Fracture of right superior pubic ramus: QUALIFIERS: Encounter type: subsequent encounter Fracture type: closed (6) Fracture of right inferior pubic ramus: QUALIFIERS: Encounter type: subsequent encounter Fracture type: closed (7) Heme positive stool: (8) Anemia: PLAN: acute on 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 PLAN: Plan 1. Continue therapy 2. Start lisinopril 2.5 mg p.o. at at bedtime 3. Hemoglobin is stable. Stool on 11/30/2023 was positive for blood and she was started on Protonix. Will check another Hemoccult stool now that she has been on Protonix for a week and if it is negative will restart Eliquis. 4. Pt and family would like her to go to TCU when she is discharged from acute rehab on 12/14. 5. She is making progress with therapy. She took 8 steps today. 6. Start to taper the Tramadol in the next few days. She is not c/o pain unless we ask her if she is having pain. She does not look to be any any significant pain.....no facial grimacing, not restless.....she was restless and tearful at admission when the pain was not controlled.. Has not been tearful recently. Charges/Coding Visit Charges Inpatient E&M: 44138 Subs Hosp L2
--- NOTE | 2023-12-12 13:14 | CASEMGMT ---
Social Work IDT met with patient, caregiver, Krupa, family friend at bedside and son, Oleksandr Quinn via phone for care plan. Discussed patient progress with therapy services (PT/OT). Patient requires continued assistance with transfer support. SW informed patient and family of Medicare cut date 12/14. Patient and family was notified of potential transition of care plan for SNF placement. Patient family inquired about potential alternative, if a bed does not become available on transitional care unit. SW discussed community placement and private pay option. Family is hoping to transition to TCU for continued rehab. Patient bed is pending for TCU transfer. Patient family is agreeable to care plans at this time SW will continue to follow for discharge planning. CHELSEY Jacobsen
[2023-12-12] MEDS: 0.9% Saline Lock 10 ML Syringe IV (17:36)
[2023-12-12 19:41] VITALS: BP 130/61; PULSE 71; RESP 16; TEMP 36.6; O2SAT 93
[2023-12-12 21:40] VITALS: BMI 24.5
[2023-12-12] MEDS: Lisinopril 2.5 MG Tablet PO (21:58)
[2023-12-12] MEDS: Psyllium 1 PACKET PO (21:58)
[2023-12-12] MEDS: Donepezil HCl 5 MG Tablet PO (21:58)
[2023-12-12] MEDS: Senna/Docusate Sodium 1 Tablet PO (21:58)
[2023-12-12 22:00] VITALS: PULSE 73; RESP 16; O2SAT 95
[2023-12-13] MEDS: 0.9% Saline Lock 10 ML Syringe IV (05:58)
[2023-12-13] MEDS: Lidocaine 5% Patch 1 PATCH TOPICAL (06:00)
[2023-12-13] MEDS: Levothyroxine 112 MCG Tablet PO (06:00)
[2023-12-13] MEDS: traMADol 50 MG Tablet PO ×2 (06:01→22:44)
[2023-12-13] MEDS: Multivitamins,Ther W-Minerals Tablet 1 TABLET PO (08:04)
[2023-12-13] MEDS: Escitalopram Oxalate 10 MG Tablet 5 MG PO (08:04)
[2023-12-13] MEDS: Senna/Docusate Sodium 1 Tablet PO (08:04)
[2023-12-13] MEDS: Ferrous Sulfate 325 MG Tablet PO (08:04)
[2023-12-13] MEDS: Pantoprazole Sodium 40 MG Tablet PO ×2 (08:04→20:43)
[2023-12-13] MEDS: Acetaminophen 500 MG Tablet 1000 MG PO ×3 (08:05→20:43)
[2023-12-13 08:40] VITALS: BP 142/63; PULSE 73; RESP 16; TEMP 36.6; O2SAT 94
[2023-12-13 09:08] VITALS: BMI 24.5
--- NOTE | 2023-12-13 09:15 | PCM.PROGNOTE ---
Subjective Subjective Afebrile VSS -systolic blood pressure remains elevated and ranged from 1 30-1 60 over the past 24 hours. She was started on lisinopril 2.5 mg yesterday. Fluorescent Solution Mixer tells me she was on metoprolol 25 mg BID prior to her fall but this was held in the hospital due to concern for hypotension and was to be restarted on 12/01 but, this never happened because BP's were normal or she had mild systolic HTN. She has a hx of asthma and also AF. She has a PM which was inserted for SSS. No tachycardia since arrival on rehab. She had her PM interrogated on 11/28/23 and she is 100% paced with rare intrinsic beat. Maintaining appropriate oxygen saturation on RA Oral intake - FOOD good FLUIDS good Having 1-3 BM's a day. stool is soft but, not liquid. Discussed with nursing - no problems that need addressed. Nursing feels she is more mobile and has less complaints about pain. C/O thigh pain this AM when attempting to walk into the shower. Reviewed the THERAPY notes Medication list reviewed. She is c/o R thigh pain. Denies SOB and CP. Apixaban has been on hold for anemia with heme + stool. Has been wearing HASMUKH hose. Objective Data Objective Data Vital Signs: Vital Signs Temp Pulse Resp BP Pulse Ox O2 Del Method 97.8 F 73 16 142/63 H 94 Room Air 12/13/23 08:40 12/13/23 08:40 12/13/23 08:40 12/13/23 08:40 12/13/23 08:40 12/13/23 08:40 Oxygen Delivery Method Room Air Weight: 161 lb Body Mass Index (BMI) 24.5 Intake & Output: Intake and Output for Last 24 Hours 12/11/23 12/12/23 12/13/23 23:59 23:59 23:59 Intake Total 1150 / 1150 560 / 560 Output Total 300 / 300 1200 / 1200 450 / 450 Balance -300 / -300 -50 / -50 110 / 110 Lab / Micro Data 12/12/23 05:25 12/12/23 05:25 Micro: Microbiology 12/01/23 02:15 Urine Catheter - Catheter Urine Culture - Final Mixed Gram Positive Organisms 11/30/23 22:23 Stool Stool Occult Blood (DELIA) - Final Occult Blood Positive Physical Exam Const alert Constitutional Narrative: Pleasant and smiling. Makes good eye contact when speaking with me. General Appearance: cooperative HEENT moist oral mucous membranes Resp normal respiratory effort Resp Narrative: Few coarse crackles in the bases that mostly resolve with a few deep breaths. No coughing with deep breathing. Effort and Inspection: Negative for tachypneic Cardio regular rate, regular rhythm and no gallops GI normal to inspection, nondistended, normoactive bowel sounds, soft to palpation and non-tender Extremity Extremity Narrative: When I squeeze the R calf she has pain in the R medial thigh. The proximal R medial thigh is painful to palpate and feels a little ropey. No ankle edema. Skin General Skin Exam: no breakdown Rashes: no rashes Assessment & Plan Assessment/Plan (1) Physical debility: (2) Fall: QUALIFIERS: Encounter type: subsequent encounter Qualified Code(s): W19.XXXD - Unspecified fall, subsequent encounter (3) Acute pain due to trauma: (4) Right clavicle fracture: QUALIFIERS: Encounter type: subsequent encounter Clavicle location: unspecified part of clavicle Fracture type: closed Fracture alignment: nondisplaced (5) Fracture of right superior pubic ramus: QUALIFIERS: Encounter type: subsequent encounter Fracture type: closed (6) Fracture of right inferior pubic ramus: QUALIFIERS: Encounter type: subsequent encounter Fracture type: closed (7) Heme positive stool: (8) Anemia: (9) Right thigh pain: PLAN: Plan 1. Continue therapy 2. Venous ultrasounds of both lower extremities. Anticoagulants have been held due to heme positive stool with anemia and she is not walking more than 8 steps a day. 3. Hemoccult stool not done yesterday because stool was mixed with urine but, HGB is stable and she was started on Protonix last week. Nursing was able to obtain a good stool sample today and the results of the hemoccult are pending. Charges/Coding Visit Charges Inpatient E&M: 48947 Subs Hosp L1
--- NOTE | 2023-12-13 09:42 | VDLE_ITS ---
Reason For Study: BLE Pain RIGHT LEFT GSV is normal. GSV is normal. CFV is compressible, spontaneous, phasic, CFV is compressible, spontaneous, phasic, competent and demonstrates normal competent, and demonstrates normal augmentation. augmentation. FV is compressible, spontaneous, phasic, FV is compressible, spontaneous, phasic, competent and demonstrates normal competent and demonstrates normal augmentation. augmentation. POP V is compressible, spontaneous, phasic, POP V is compressible, spontaneous, phasic, competent and demonstrates normal competent and demonstrates normal augmentation. augmentation. T/P Trunk is compressible. T/P Trunk is compressible. PTV is compressible. PTV is compressible. RT PerV is compressible. LT PerV is compressible. Procedure This is a venous duplex using B-mode, color flow and spectral Doppler. Exam performed portable in patient room. The exam was diagnostic. [facility] VL/Venous Duplex US - Yuri Extrem Interpretation Summary Deep veins of the lower extremities are bilaterally patent and compressible seg mentally. There is no evidence of deep vein thrombosis on either side. Valvular competence appears in tact within the proximal deep venous systems bilaterally. The great saphenous veins appear bila terally patent and compressible segmentally. Ordering Physician: Daniella Travis Referring Physician: Elizabeth Cai Performed By: Jadiel George RVT and Student
[2023-12-13] MEDS: traMADol 50 MG Tablet 25 MG PO ×2 (12:07→17:21)
[2023-12-13 20:40] VITALS: BP 123/62; PULSE 69; RESP 18; TEMP 37.1; O2SAT 97; BMI 24.5
[2023-12-13] MEDS: Donepezil HCl 5 MG Tablet PO (20:43)
[2023-12-13] MEDS: APIXABAN 2.5 MG TABLET (WCH) PO (20:43)
[2023-12-13 22:00] VITALS: PULSE 69; RESP 18; O2SAT 97
[2023-12-13] MEDS: Lisinopril 2.5 MG Tablet PO (22:44)
--- NOTE | 2023-12-14 03:08 | NURSING ---
Reviewed and agree with Ede RAMIREZ, documentation and assessment charting.
[2023-12-14] MEDS: Levothyroxine 112 MCG Tablet PO (05:33)
[2023-12-14] MEDS: Lidocaine 5% Patch 1 PATCH TOPICAL (05:33)
[2023-12-14] MEDS: 0.9% Saline Lock 10 ML Syringe IV ×2 (05:41→20:54)
[2023-12-14] MEDS: traMADol 50 MG Tablet PO ×2 (05:50→21:01)
[2023-12-14 06:00] VITALS: BMI 23.7
[2023-12-14 07:11] VITALS: BP 130/66; PULSE 69; RESP 16; TEMP 36.3; O2SAT 97
[2023-12-14] MEDS: APIXABAN 2.5 MG TABLET (WCH) PO ×2 (08:14→21:00)
[2023-12-14] MEDS: Escitalopram Oxalate 10 MG Tablet 5 MG PO (08:14)
[2023-12-14] MEDS: Multivitamins,Ther W-Minerals Tablet 1 TABLET PO (08:14)
[2023-12-14] MEDS: Acetaminophen 500 MG Tablet 1000 MG PO ×3 (08:15→20:15)
[2023-12-14] MEDS: Ferrous Sulfate 325 MG Tablet PO (08:15)
[2023-12-14] MEDS: Pantoprazole Sodium 40 MG Tablet PO ×2 (08:15→21:00)
[2023-12-14] MEDS: traMADol 50 MG Tablet 25 MG PO ×2 (12:02→17:49)
[2023-12-14 15:02] VITALS: BMI 23.7
[2023-12-14 19:27] VITALS: BP 138/62; PULSE 64; RESP 16; TEMP 36.6; O2SAT 96
[2023-12-14] MEDS: Donepezil HCl 5 MG Tablet PO (20:59)
[2023-12-14] MEDS: Psyllium 1 PACKET PO (21:00)
[2023-12-14] MEDS: Lisinopril 2.5 MG Tablet PO (21:01)
[2023-12-14 21:05] VITALS: BMI 23.7
[2023-12-14 22:00] VITALS: PULSE 64; RESP 16; O2SAT 96
[2023-12-15] MEDS: traMADol 50 MG Tablet PO (06:21)
[2023-12-15] MEDS: Levothyroxine 112 MCG Tablet PO (06:21)
[2023-12-15] MEDS: Lidocaine 5% Patch 1 PATCH TOPICAL (06:22)
[2023-12-15 07:11] VITALS: BP 154/75; PULSE 71; RESP 16; TEMP 36.6; O2SAT 98
[2023-12-15] MEDS: Multivitamins,Ther W-Minerals Tablet 1 TABLET PO (08:20)
[2023-12-15] MEDS: Pantoprazole Sodium 40 MG Tablet PO (08:20)
[2023-12-15] MEDS: Ferrous Sulfate 325 MG Tablet PO (08:20)
[2023-12-15] MEDS: Escitalopram Oxalate 10 MG Tablet 5 MG PO (08:20)
[2023-12-15] MEDS: Acetaminophen 500 MG Tablet 1000 MG PO ×2 (08:22→14:34)
[2023-12-15] MEDS: APIXABAN 2.5 MG TABLET (WCH) PO (08:22)
--- NOTE | 2023-12-15 10:23 | TREXTCAR_ITS ---
Diet Diet Order/Speech Therapy: 11/29/23 16:43 Diet: Regular - General Routine Orders/Code Status Enema Type: Fleetz Enema Frequency: Daily PRN Suppository Type: Dulcolax 10mg Suppository Frequency: Daily PRN O2 Liters per Minute: 2 L O2 Frequency: PRN Keep PO Greater than or Equal to (%): 90 Routine Lab Work: - (HH weekly X 2 ) Code Status: DNRCC Wound(s) Rt mandible: Wound Type: Abrasion Distal Rt Cheek: Wound Type: Abrasion Bridge of Nose: Wound Type: Abrasion RFA: Wound Type: Abrasion RLE: Wound Type: Abrasion Therapies Weight Bearing: Weight bearing as tolerated Physical Therapy: Eval and Treat Occupational Therapy: Eval and Treat Speech Therapy: Eval and Treat Problem/Diagnosis (1) Physical debility: Status: Acute Code(s): R53.81 - Other malaise Plan: Continue PT/OT. Comment: Due to a fall resulting in pelvic fractures and a right clavicle fracture. (2) Fall: Status: Inactive Code(s): W19.XXXA - Unspecified fall, initial encounter (3) Acute pain due to trauma: Status: Acute Code(s): G89.11 - Acute pain due to trauma (4) Right clavicle fracture: Status: Deleted Code(s): S42.001A - Fracture of unspecified part of right clavicle, initial encounter for closed fracture (5) Fracture of right superior pubic ramus: Status: Acute Code(s): S32.511A - Fracture of superior rim of right pubis, initial encounter for closed fracture (6) Fracture of right inferior pubic ramus: Status: Acute Code(s): S32.591A - Other specified fracture of right pubis, initial encounter for closed fracture (7) Heme positive stool: Status: Acute Code(s): R19.5 - Other fecal abnormalities Plan: Continue Protonix. HGB has been stable. Eliquis for AF was restarted on 12/13/23 for AF (8) Anemia: Status: Chronic Code(s): D64.9 - Anemia, unspecified (9) Right thigh pain: Status: Acute Code(s): M79.651 - Pain in right thigh Comment: Venous US was negative for DVT. on 12/13/23. Eliquis has been restarted for AF and for DVT prophylaxis. We held the Eliquis for 8 days after starting Protonix for heme + stool. Plan 1. Transfer to SNF/TCU for additional therapy prior to returning home with button and buckle maker. 2. Continue Tramadol for pain. Decrease the dose to 25 mg Q 6 H. We scheduled it because she does not remember to ask for it when she has pain. 3. Check an weekly x 2 in light of persistent heme + stool (even on Protonix) and restarting Eliquis. HGB is stable at 10.5. 4. In Oct the ferritin was 8. It has not been rechecked but, she has been persistently anemic. Will order 3 doses of Iron Sucrose. Allergies/Procedures Done in Hospital Allergies Environmental Allergies: Uncoded Allergy (Mild, Verified 11/27/23 16:57) sneezing latex Adverse Reaction (Verified 11/27/23 16:57) Itching sulfamethoxazole [From Bactrim] Adverse Reaction (Verified 11/27/23 16:57) Nausea trimethoprim [From Bactrim] Adverse Reaction (Verified 11/27/23 16:57) Nausea Procedures: None Type of Care/Length of Stay Estimated LOS: Convalescent Care Less Than 30 days Type of Care Needed: Skilled Rehab Potential: Fair Prognosis: Fair Additional Orders/Day of Discharge H&P will serve as current which was dated: 11/30/23 Day of Discharge: 12/15/23 Dietary and Speech Recommendations Dietitian Recommendations/Changes: Continue Regular diet as ordered. Consult RD as needed if nutrition/dietary issues arise. Follow Up Care Please follow up with your Primary Care Physician in: Following DC from TCU. Please Follow Up With: Miguel Angel Arreola MD When: in 1month. Discharge Plan Admission Admit Date/Time: 11/29/23 15:31 Primary Reason for Your Visit: Debility due to fall with pelvic fracture/clavicle fx Attending Provider: Daniella Travis Primary Care Provider: Elizabeth Cai Discharge Orders/Prescriptions Prescriptions: New acetaminophen 500 mg Tablet 1,000 mg PO 0900,1500,2000 Qty: 1 0RF magnesium hydroxide 400 mg/5 mL Suspension 30 ml PO X1 PRN (Reason: Constipation) Qty: 30 0RF bisacodyl 10 mg Suppository 10 mg VA X1 PRN (Reason: Constipation) Qty: 1 0RF pantoprazole 40 mg Tablet,Delayed Release (Dr/Ec) 40 mg PO DAILY Qty: 1 0RF lidocaine 5 % Adhesive Patch,Medicated 1 patch topical 0700 Qty: 1 0RF Protocol: *Topical Application Instructions APPLICATION INSTRUCTIONS: APPLY TO THE DISTAL E ND OF THE R CLAVICLE Venofer 100 mg iron/5 mL Solution 200 mg IV DAILY Qty: 5 0RF lisinopril 2.5 mg Tablet 2.5 mg PO QHS Qty: 1 0RF sennosides-docusate sodium [Stool Softener-Stimulant Laxat] 8.6-50 mg Tablet 1 tab PO BID PRN (Reason: Constipation) Qty: 1 0RF tramadol 50 mg Tablet 25 mg PO Q6H 7 Days Qty: 14 0RF ascorbic acid (vitamin C) [Vitamin C] 1,000 mg tablet 1 g PO DAILY Qty: 1 0RF Rx Instructions: Give this once a day when Ferrous sulfate given. Continued escitalopram oxalate 5 mg tablet 5 mg PO DAILY Qty: 90 1RF nx-saw-EC-Xy-Lp-khdbhyv-lutein 1 EACH tablet 1 ea PO DAILY Patient Comments: vitamin biotin 500 mcg capsule 1 mg PO DAILY levothyroxine 112 mcg tablet 112 mcg PO DAILY Daily Fiber (psyllium-aspart) 3 gram Powder In Packet 1 packet PO DAILY Qty: 0 0RF Eliquis 2.5 mg tablet 2.5 mg PO BID Qty: 180 3RF Hold Instructions: Resume on 11/17/23. donepezil 5 mg tablet 5 mg PO QHS Qty: 90 3RF Held ferrous sulfate [FeroSul] 325 mg (65 mg iron) tablet See Rx Instructions .ROUTE .COMPLEX Qty: 90 3RF Hold Instructions: Resume on 12/19/23. Dose Instruction: take 1 tablet by mouth once daily Rx Instructions: take 1 tablet by mouth once daily Discontinued budesonide 90 mcg/actuation aerosol powdr breath activated 1 inh inhalation BID PRN (Reason: shortness of breath or wheezing) acetaminophen 500 mg Tablet 1,000 mg PO Q8 Qty: 0 0RF oxycodone 5 mg Tablet 5 mg PO Q4H PRN PRN (Reason: PAIN 4-10) Qty: 0 0RF metoprolol tartrate 25 mg tablet 25 mg PO BID Qty: 180 3RF Hold Instructions: Resume on 12/02/23. Referrals / Follow Up: Elizabeth Cai MD [Primary Care Provider] - Miguel Angel Arreola MD [Med Staff - Active Staff] - Disposition Disposition (needs filled in before D/C Order can be placed): Nursing Home Facility (2) Fall Qualifiers: Encounter type: subsequent encounter Qualified Code(s): W19.XXXD - Unspecified fall, subsequent encounter (4) Right clavicle fracture Qualifiers: Encounter type: subsequent encounter Clavicle location: unspecified part of clavicle Fracture type: closed Fracture alignment: nondisplaced (5) Fracture of right superior pubic ramus Qualifiers: Encounter type: subsequent encounter Fracture type: closed (6) Fracture of right inferior pubic ramus Qualifiers: Encounter type: subsequent encounter Fracture type: closed
--- NOTE | 2023-12-15 10:51 | CASEMGMT ---
Social Work SW met with patient at bedside to complete discharge MDS. Patient Bims () and PHQ-2 (). SW reviewed discharge disposition with patient. Patient anticipates discharge to TCU when a bed becomes available. Anticipated discharge date 12/15/2023. SW provided updates to Physician, Dr. Travis Patient informed SW that she would like her son, Oleksandr updated regarding discharge. SW attempted to contact Oleksandr Quinn via phone [phone] to notify of discharge disposition; no answer. SW left a HIPPA compliant voicemail requesting return call. Discharge: TCU 12/15/2023 CHELSEY Jacobsen
--- NOTE | 2023-12-15 10:56 | PCM.DC.SUM ---
Providers Date of Admission: 11/29/23 Date of Discharge: 12/15/23 Primary Care Physician: Dr. Elizabeth Cai MD Reason For Visit: PELVIC FRACTURE Diagnosis Discharge Diagnosis (1) Physical debility: Status: Acute Code(s): R53.81 - Other malaise Plan: Continue PT/OT. (2) Fall: Status: Inactive Code(s): W19.XXXA - Unspecified fall, initial encounter Qualifiers: Encounter type: subsequent encounter Qualified Code(s): W19.XXXD - Unspecified fall, subsequent encounter (3) Acute pain due to trauma: Status: Acute Code(s): G89.11 - Acute pain due to trauma (4) Right clavicle fracture: Status: Deleted Code(s): S42.001A - Fracture of unspecified part of right clavicle, initial encounter for closed fracture Qualifiers: Clavicle location: unspecified part of clavicle Encounter type: subsequent encounter Fracture alignment: nondisplaced Fracture type: closed (5) Fracture of right superior pubic ramus: Status: Acute Code(s): S32.511A - Fracture of superior rim of right pubis, initial encounter for closed fracture Qualifiers: Encounter type: subsequent encounter Fracture type: closed (6) Fracture of right inferior pubic ramus: Status: Acute Code(s): S32.591A - Other specified fracture of right pubis, initial encounter for closed fracture Qualifiers: Encounter type: subsequent encounter Fracture type: closed (7) Heme positive stool: Status: Acute Code(s): R19.5 - Other fecal abnormalities Plan: Continue Protonix. HGB has been stable. 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 She was started on Protonix and Eliquis was held for a week and then restarted. Repeat hemoccult still + but, HGB is stable at 10.5. Lab last October consistent with iron deficiency. 3 dose of IV iron ordered and then will restart ferrous sulfate + Vitamin C. HH weekly X 2. (11) History of permanent cardiac pacemaker placement: Status: Chronic Code(s): Z95.0 - Presence of cardiac pacemaker (12) Hypertension: Status: Chronic Code(s): I10 - Essential (primary) hypertension Qualifiers: Hypertension type: primary hypertension Qualified Code(s): I10 - Essential (primary) hypertension Plan: She was confused at admission to rehab, more than her baseline. Metoprolol was held in the hospital due to concern for hypotension while on narcotics. BP was only mildly elevated on rehab and she was started on Lisinopril. Pacemaker interrogation at admission to the hospital showed that she is 99% completely paced. She has been in a regular rhythm since admission to rehab with no tachycardia. Systolic blood pressure in the a.m. is mildly elevated but the remainder of the blood pressures have been within goal. Plan 1. Transfer to SNF/TCU for additional therapy prior to returning home with web content editor. 2. Continue Tramadol for pain. Decrease the dose to 25 mg Q 6 H. We scheduled it because she does not remember to ask for it when she has pain. 3. Check an HH weekly x 2 in light of persistent heme + stool (even on Protonix) and restarting Eliquis. HGB is stable at 10.5. 4. In Oct the ferritin was 8. It has not been rechecked but, she has been persistently anemic. Will order 3 doses of Iron Sucrose. Medications at Discharge Home Medications ovfbmetr-fed-OJ 0.4 mg-calcium 162 mg-iron 18 rj-mrhgagt-rwcrxy tablet 1 ea PO DAILY supplement 06/03/19 apixaban 2.5 mg tablet (Eliquis) 2.5 mg PO BID blood thinner #180 tabs 11/24/22 biotin 500 mcg capsule 1 mg PO DAILY supplement 03/25/23 donepezil 5 mg tablet 5 mg PO QHS memory #90 tabs 04/07/23 ferrous sulfate 325 mg (65 mg iron) tablet (FeroSul) See Rx Instructions .Route .COMPLEX supplement #90 TABLETS 06/27/23 escitalopram oxalate 5 mg tablet 5 mg PO DAILY anxiety #90 tabs 07/18/23 levothyroxine 112 mcg tablet 112 mcg PO DAILY thyroid 11/09/23 psyllium husk (aspartame) 3 gram oral powder packet (Daily Fiber (psyllium-aspartame)) 1 packet PO DAILY bowel mobility #0 ea 11/29/23 acetaminophen 500 mg tablet 1,000 mg (2 x 500 mg) PO 0900,1500,2000 pain 1-10 #1 TAB 12/15/23 ascorbic acid (vitamin C) 1,000 mg tablet (Vitamin C) 1 g PO DAILY supplement #1 TAB 12/15/23 bisacodyl 10 mg rectal suppository 10 mg MO X1 PRN Constipation #1 ea 12/15/23 iron sucrose 100 mg iron/5 mL intravenous solution (Venofer) 200 mg (10 mL) IV DAILY Supplement #5 mL 12/15/23 lidocaine 5 % topical patch 1 patch topical 0700 pain #1 ea 12/15/23 lisinopril 2.5 mg tablet 2.5 mg PO QHS BP #1 TAB 12/15/23 magnesium hydroxide 400 mg/5 mL oral suspension 30 ml PO X1 PRN Constipation #30 mL 12/15/23 pantoprazole 40 mg tablet,delayed release 40 mg PO DAILY Supplement #1 TAB 12/15/23 sennosides 8.6 mg-docusate sodium 50 mg tablet (Stool Softener-Stimulant Laxative) 1 tab PO BID PRN Constipation #1 TAB 12/15/23 tramadol 50 mg tablet 25 mg (1/2 x 50 mg) PO Q6H pain 7 days #14 tabs 12/15/23 Hospital Course Operations None Procedures None Summary of Care Provided Minutes Spent on Discharge: 35 Hospital Course: TABITHA SANTIAGO, is a 88 YO F with a PMH of hypothyroidism, anxiety/depression, OA, asthma, AFIB , complete heart block (S/P PM), dementia, HTN, hx of GIB, presbycusis microscopic colitis, nonrheumatic MV regurgitation, RA, parathyroid abnormality, venous insufficiency and chronic anticoagulation with Eliquis who presented to the ED at [facility] on 11/27/23 after a fall from standing height c/o R shoulder pain and inability to move her R thigh. She denied syncope and stated the fall occurred when she was negotiating a step up into her kitchen. Imaging showed R superior and inferior pubic rami fractures and a ND R clavicle fx. Dr. Arreola from orthopedics felt no surgical intervention was indicated. Because she lives alone and was not able to ambulate she was admitted to the hospitalist service. She was seen by PT/OT and acute rehab was recommended at [place]. She was transferred to the acute inpt rehab unit at [facility] on 11/29/23 for 3 hours of therapy daily to restore function/independence at or near her level prior to the fall/fractures. Significant lab at admission to the emergency department included a low hemoglobin at 10.5 with normochromic normocytic indices and an elevated RDW. Platelets were within normal limits. BUN was high at 25 with a creatinine of 0.85 urine/creatinine ratio of 29.6. Sodium and potassium are normal. She was more confused than her baseline at admission to rehab and Oxycodone was discontinued and she was transitioned to Tramadol with improvement. She has been making steady improvement on rehab but, progress is slow due to dementia and pain. She was not able to ask for PRN pain medication and the pain would get bad and she would be crying by the time she got pain medication. This impaired her ability to do therapy. We scheduled her pain medication and alternated Tramadol with Acetaminophen and this is working well. Tabitha's web content editor, Krupa, came in for shared care with the therapy team and Tabitha is still requiring more assistance than Krupa can provide at this time. She would need 28/03 supervision if she would be discharged home from rehab. She was transferred to SNF/TCU on 12/15/23 for additional therapy and hopefully will be able to go home from TCU with Krupa's assistance. Heme stool was checked on rehab at admission and it was +. She has a hx of a GIB and so she was started on Protonix and Eliquis was held for 1 week prior to restarting at 2.5 mg BID. We rechecked a hemoccult and after 1 week on Protonix the stool is still +. She is eating well and denies any N/V/epigastic pain or heartburn. Her HGB is stable at 10.5. Lab last October showed iron deficiency and she was started on iron and the HGB improved to 13.5 on 01/11/24. HGB was 10.4 on 10/31/2023. We elected to give 3 doses of IV iron sucrose and then restart the oral ferrous sulfate with Vitamin C since she will now be taking Protonix. Physical Exam Const alert Constitutional Narrative: Pleasant and smiling. Makes good eye contact when speaking with me. General Appearance: cooperative HEENT moist oral mucous membranes Resp normal respiratory effort Resp Narrative: Few coarse crackles in the bases that mostly resolve with a few deep breaths. No coughing with deep breathing. Effort and Inspection: Negative for tachypneic Cardio regular rate, regular rhythm and no gallops GI normal to inspection, nondistended, normoactive bowel sounds, soft to palpation and non-tender Extremity Extremity Narrative: When I squeeze the R calf she has pain in the R medial thigh. The proximal R medial thigh is painful to palpate and feels a little ropey. No ankle edema. Skin General Skin Exam: no breakdown Rashes: no rashes Weight / BMI Weight Weight: 156 lb 8.451 oz Body Mass Index (BMI) 23.7 ABG / Lab / Microbiology Data 12/12/23 05:25 12/12/23 05:25 Microbiology: Microbiology 12/13/23 09:25 Stool Stool Occult Blood (DELIA) - Final Occult Blood Positive 12/01/23 02:15 Urine Catheter - Catheter Urine Culture - Final Mixed Gram Positive Organisms 11/30/23 22:23 Stool Stool Occult Blood (DELIA) - Final Occult Blood Positive D/C Instructions Please Follow Up With: Miguel Angel Arreola MD Meaningful Use Info Meaningful Use Diagnoses (Choose all that apply): None applicable Discharge Plan Admission Admit Date/Time: 11/29/23 15:31 Primary Reason for Your Visit: Debility due to fall with pelvic fracture/clavicle fx Attending Provider: Daniella Travis Primary Care Provider: Elizabeth Cai Discharge Orders/Prescriptions Prescriptions: New acetaminophen 500 mg Tablet 1,000 mg PO 0900,1500,2000 Qty: 1 0RF magnesium hydroxide 400 mg/5 mL Suspension 30 ml PO X1 PRN (Reason: Constipation) Qty: 30 0RF bisacodyl 10 mg Suppository 10 mg MO X1 PRN (Reason: Constipation) Qty: 1 0RF pantoprazole 40 mg Tablet,Delayed Release (Dr/Ec) 40 mg PO DAILY Qty: 1 0RF lidocaine 5 % Adhesive Patch,Medicated 1 patch topical 0700 Qty: 1 0RF Protocol: *Topical Application Instructions APPLICATION INSTRUCTIONS: APPLY TO THE DISTAL END OF THE R CLAVICLE Venofer 100 mg iron/5 mL Solution 200 mg IV DAILY Qty: 5 0RF lisinopril 2.5 mg Tablet 2.5 mg PO QHS Qty: 1 0RF sennosides-docusate sodium [Stool Softener-Stimulant Laxat] 8.6-50 mg Tablet 1 tab PO BID PRN (Reason: Constipation) Qty: 1 0RF tramadol 50 mg Tablet 25 mg PO Q6H 7 Days Qty: 14 0RF ascorbic acid (vitamin C) [Vitamin C] 1,000 mg tablet 1 g PO DAILY Qty: 1 0RF Rx Instructions: Give this once a day when Ferrous sulfate given. Continued escitalopram oxalate 5 mg tablet 5 mg PO DAILY Qty: 90 1RF bh-ppe-XS-Oe-Ez-gdgxtbd-lutein 1 EACH tablet 1 ea PO DAILY Patient Comments: vitamin biotin 500 mcg capsule 1 mg PO DAILY levothyroxine 112 mcg tablet 112 mcg PO DAILY Daily Fiber (psyllium-aspart) 3 gram Powder In Packet 1 packet PO DAILY Qty: 0 0RF Eliquis 2.5 mg tablet 2.5 mg PO BID Qty: 180 3RF Hold Instructions: Resume on 11/17/23. donepezil 5 mg tablet 5 mg PO QHS Qty: 90 3RF Held ferrous sulfate [FeroSul] 325 mg (65 mg iron) tablet See Rx Instructions .ROUTE .COMPLEX Qty: 90 3RF Hold Instructions: Resume on 12/19/23. Dose Instruction: take 1 tablet by mouth once daily Rx Instructions: take 1 tablet by mouth once daily Discontinued budesonide 90 mcg/actuation aerosol powdr breath activated 1 inh inhalation BID PRN (Reason: shortness of breath or wheezing) acetaminophen 500 mg Tablet 1,000 mg PO Q8 Qty: 0 0RF oxycodone 5 mg Tablet 5 mg PO Q4H PRN PRN (Reason: PAIN 4-10) Qty: 0 0RF metoprolol tartrate 25 mg tablet 25 mg PO BID Qty: 180 3RF Hold Instructions: Resume on 12/02/23. Referrals / Follow Up: Elizabeth Cai MD [Primary Care Provider] - Miguel Angel Arreola MD [Med Staff - Active Staff] - Disposition Disposition (needs filled in before D/C Order can be placed): [facility] Facility Charges/Coding Visit Charges Inpatient E&M: 13337 Disch Hosp >30min
[2023-12-15] MEDS: traMADol 50 MG Tablet 25 MG PO (12:18)
[2023-12-15] MEDS: 0.9% Saline Lock 10 ML Syringe IV (12:22)
[2023-12-15] MEDS: Sodium Ferric Gluconat 125 MG in 0.9% Normal Saline 100 ML 110 MG IV (12:24)
[2023-12-15] MEDS: 0.9% Normal Saline (250mL Bag) 250 ML 15 ML IV (12:25)
[2023-12-15 15:02] VITALS: BP 154/75; PULSE 71; RESP 16; TEMP 36.6; O2SAT 98
[2023-12-15 15:04] VITALS: BMI 23.7
--- NOTE | 2023-12-15 15:05 | NURSING ---
discharged to TCU report called to Christiano RUIZ
== END 2023-12-15 14:50 | disposition skilled nursing facility (03) | DRG 560 ==
PROVIDERS: Admitting Provider Internal Medicine; PCP Internal Medicine; Visit Provider Internal Medicine
DX: S32.82XD Multiple fractures of pelvis without disruption of pelvic ring, subsequent encounter for fracture with routine healing (principal); I48.19 Other persistent atrial fibrillation; N30.00 Acute cystitis without hematuria; F03.90 Unspecified dementia, unspecified severity, without behavioral disturbance, psychotic disturbance, mood disturbance, and anxiety; I49.5 Sick sinus syndrome; M06.9 Rheumatoid arthritis, unspecified; E03.9 Hypothyroidism, unspecified; J45.20 Mild intermittent asthma, uncomplicated; I10 Essential (primary) hypertension; F32.A Depression, unspecified; D50.9 Iron deficiency anemia, unspecified; W19.XXXD Unspecified fall, subsequent encounter; F41.9 Anxiety disorder, unspecified; M19.90 Unspecified osteoarthritis, unspecified site; S42.001D Fracture of unspecified part of right clavicle, subsequent encounter for fracture with routine healing; Z79.01 Long term (current) use of anticoagulants; Z79.51 Long term (current) use of inhaled steroids; Z79.899 Other long term (current) drug therapy; Z79.890 Hormone replacement therapy; Z95.0 Presence of cardiac pacemaker
CPT/HCPCS: 36415; 80048; 81001; 82274; 85014; 85018; 85025; 85027; 87086; 87088; 92507; 93970; 96125; 97110; 97116; 97129; 97130; 97162; 97166; 97530; 97535; J7050; A4216; J2916

== ENCOUNTER 2023-12-15 15:01 | Inpatient (IN) | payer MEDICARE, OTHER, SELFPAY ==
[2023-12-15 15:14] VITALS: BP 136/61; PULSE 73; RESP 14; TEMP 36.2; O2SAT 96; BMI 24.0
[2023-12-15] MEDS: traMADol 50 MG Tablet 25 MG PO (17:36)
--- NOTE | 2023-12-15 18:47 | HP.PCM_ITS ---
HPI - General General Date of Admission: 12/15/23 Date of Service: 12/15/23 Chief Complaint: Here for rehabilitation. HPI Narrative 11/27/2023 MARISA SANTIAGO, is a 88 Female who presents to [facility] ED with fall. Right pelvic fracture, nondisplaced right clavicle fracture. Dr. Arreola recommended non-surgical approach to fractures. 11/29/2023 Admit to for greater than 3 hours daily therapy. PT/OT/ST. Oxycodone causing memory loss, change to Tramadol. 12/01/2023 Pain controlled with Tramadol. Pantoprazole 40mg daily. Augmentin 500mg bid for UTI, urine culture pending. 12/04/2023 Urine culture non-diagnostic. Finish Augmentin 500mg bid after 5 day course. Lactobacillus 1 tablet bid x 5 days for GI prophylaxis. Lidoderm patch for right clavicle fracture pain. 12/05/2023 Stool guaiac positive for blood, monitor Hemoglobin hold Eliquis 1 week. Increase Pantoprazole to 40mg bid. 12/06/2023 Hemoglobin 10.5, improved. Tramadol scheduled, patient forgets to ask for pain medication. 12/08/2023 ST states cognition at baseline. 12/12/2023 Lisinopril 2.5mg qhs for elevated blood pressure. Hemoglobin stable, recheck stool guaiac, still positive, but hemoglobin stable, restart Eliquis. Taper Tramadol. 12/13/2023 Doppler bilateral lower extremity negative DVT. Iron deficiency anemia chronic, iv iron ordered to replete iron stores, improve hemoglobin. 12/15/2023 Admit to TCU with debility, here for rehabilitation, strengthening, prior to discharge home. [facility] Medical History (Updated 12/15/23 @ 18:[address] Rod Ochoa MD) Acquired hypothyroidism Allergies Anemia Anxiety and depression Arthritis Asthma Atrial fibrillation BRBPR (bright red blood per rectum) Cardiology follow-up encounter Carpal tunnel syndrome Chronic anticoagulation Closed head injury Complete heart block Concussion CVA (cerebral vascular accident) Delayed wound healing Dementia Distal radius fracture Edema leg Essential (primary) hypertension Fall Fall Flu vaccine need Fracture of metacarpal base, first, right hand, closed Fracture of right inferior pubic ramus Fracture of right superior pubic ramus GI bleed Goiter Hearing problem History of GI bleed History of IBS History of stress test Hyperlipidemia Hyperlipidemia Hypertension Hypothyroidism Hypothyroidism Iron deficiency anemia Malnutrition Microscopic colitis Microscopic colitis Mild intermittent asthma Non-smoker Nonrheumatic mitral valve insufficiency Open wound of left ring finger Osteoarthritis Pacemaker lead malfunction Parathyroid disorder Periorbital edema of left eye Persistent atrial fibrillation Personal history of colonic polyps Rheumatoid arthritis Right hemiparesis Sick sinus syndrome Stroke/cerebrovascular accident Thyroid storm Ulcer of left lower extremity with fat layer exposed Ulcer of right lower extremity with fat layer exposed Venous insufficiency Vertigo 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 Wears glasses Home Medications cbdvitmx-gqe-AF 0.4 mg-calcium 162 mg-iron 18 za-mmiujol-diupcx tablet 1 ea PO DAILY supplement 06/03/19 [History Last Taken 12/15/23] apixaban 2.5 mg tablet (Eliquis) 2.5 mg PO BID blood thinner #180 tabs 11/24/22 [Rx Last Taken 12/15/23] biotin 500 mcg capsule 1 mg PO DAILY supplement 03/25/23 [History Last Taken 12/15/23] donepezil 5 mg tablet 5 mg PO QHS memory #90 tabs 04/07/23 [Rx Last Taken 12/14/23] ferrous sulfate 325 mg (65 mg iron) tablet (FeroSul) See Rx Instructions .Route .COMPLEX supplement #90 TABLETS 06/27/23 [Rx Last Taken 12/15/23] escitalopram oxalate 5 mg tablet 5 mg PO DAILY anxiety #90 tabs 07/18/23 [Rx Last Taken 12/15/23] levothyroxine 112 mcg tablet 112 mcg PO DAILY thyroid 11/09/23 [History Last Taken 12/15/23] psyllium husk (aspartame) 3 gram oral powder packet (Daily Fiber (psyllium- aspartame)) 1 packet PO DAILY bowel mobility #0 ea 11/29/23 [Rx Last Taken 12/14/23] acetaminophen 500 mg tablet 1,000 mg (2 x 500 mg) PO 0900,1500,2000 pain 1-10 #1 TAB 12/15/23 [Rx Last Taken Unknown] ascorbic acid (vitamin C) 1,000 mg tablet (Vitamin C) 1 g PO DAILY supplement #1 TAB 12/15/23 [Rx Last Taken 12/15/23] bisacodyl 10 mg rectal suppository 10 mg [place] X1 PRN Constipation #1 ea 12/15/23 [Rx Last Taken 12/15/23] iron sucrose 100 mg iron/5 mL intravenous solution (Venofer) 200 mg (10 mL) IV DAILY Supplement #5 mL 12/15/23 [Rx Last Taken 12/15/23] lidocaine 5 % topical patch 1 patch topical 0700 pain #1 ea 12/15/23 [Rx Last Taken 12/15/23] lisinopril 2.5 mg tablet 2.5 mg PO QHS BP #1 TAB 12/15/23 [Rx Last Taken 12/15/23] magnesium hydroxide 400 mg/5 mL oral suspension 30 ml PO X1 PRN Constipation #30 mL 12/15/23 [Rx Last Taken Unknown] pantoprazole 40 mg tablet,delayed release 40 mg PO DAILY Supplement #1 TAB 12/15/23 [Rx Last Taken 12/15/23] sennosides 8.6 mg-docusate sodium 50 mg tablet (Stool Softener-Stimulant Laxative) 1 tab PO BID PRN Constipation #1 TAB 12/15/23 [Rx Last Taken Unknown] tramadol 50 mg tablet 25 mg (1/2 x 50 mg) PO Q6H pain 7 days #14 tabs 12/15/23 [Rx Last Taken 12/15/23] Allergy/AdvReac Type Severity Reaction Status Date / Time Environmental Allergies: Allergy Mild sneezing Verified 11/27/23 16:57 Uncoded latex AdvReac Itching Verified 11/27/23 16:57 sulfamethoxazole AdvReac Nausea Verified 11/27/23 16:57 [From Bactrim] trimethoprim [From Bactrim] AdvReac Nausea Verified 11/27/23 16:57 Family History Father CAD (coronary artery disease) Brother Cancer Leukemia Brother Epilepsy Mother Colon cancer Other CVA (cerebral vascular accident) Diabetes Surgical History H/O thyroidectomy H/O thyroidectomy History of knee replacement History of permanent cardiac pacemaker placement History of right hip replacement Status post placement of cardiac pacemaker Social History household members: none and other details: she has a medical clinic manager who comes every day housing: house number of children: 3 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 Smoking Status: Never smoker alcohol intake: never substance use type: does not use caffeine: Yes Type: tea Number of servings: 1 what type of physical activity do you participate in: other details: [employer] ROS Constitutional Constitutional: Denies chills, fever(s) or weight gain ENT HEENT: Denies headache(s), nasal congestion or nasal discharge Cardiovascular Cardiovascular: Denies chest pain or palpitations Respiratory/Chest Respiratory/Chest: Denies cough, excessive phlegm production or shortness of breath with exertion Gastrointestinal Gastrointestinal: Denies abdominal pain, nausea or vomiting Genitourinary Genitourinary: Denies dysuria Musculoskeletal Musculoskeletal: Denies joint pain or joint swelling Integumentary Integumentary: Denies rash or wounds Neurologic Neurologic: Denies focal weakness, numbness or tingling Psychiatric Psychiatric: Denies anxiety, auditory hallucinations, depression, homicidal ideation or suicidal ideation Vital Signs Vital Signs Vital Signs: 12/15/23 15:14 12/15/23 15:14 Temperature 97.2 F L Temperature Source Temporal Pulse Rate 73 Pulse Rhythm Regular Pulse Strength Normal (2+) Respiratory Rate 14 Respiratory Effort Normal Non-Labored Respiratory Depth Normal Respiratory Pattern Normal Blood Pressure 136/61 H Blood Pressure Mean 86 Blood Pressure Source Monitor Blood Pressure Position Sitting Blood Pressure Location Right Arm Pulse Ox 96 Oxygen Delivery Method Room Air Room Air Weight Weight: 71.668 kg Body Mass Index (BMI) 24.0 Physical Exam Const alert General Appearance: cooperative HEENT normocephalic Eyes PERRL and EOMs intact bilaterally Neck supple, no JVD and no carotid bruits Resp normal respiratory effort, normal air movement and clear to auscultation bilaterally Cardio regular rate and regular rhythm GI normal to inspection, nondistended, normoactive bowel sounds, non-tender and non-distended Extremity normal capillary refill General Extremity: Negative for edema Skin no rashes or lesions noted General Skin Exam: no breakdown Psych affect normal Appearance: appropriate Assessment & Plan Assessment/Plan (1) Debility: (2) Pelvis fracture, right: (3) Right clavicle fracture: (4) Urinary tract infection: (5) Iron deficiency anemia: (6) Hypothyroidism: QUALIFIERS: Hypothyroidism type: unspecified Qualified Code(s): E03.9 - Hypothyroidism, unspecified (7) Depression: (8) Anxiety: (9) Osteoarthritis: (10) Asthma: (11) Atrial fibrillation: (12) Complete heart block: (13) Alzheimer disease: (14) Essential (primary) hypertension: (15) Microscopic colitis: (16) Rheumatoid arthritis: PLAN: Plan 88 year old female with below past medical history hospitalized for right pelvis fracture, nondisplaced right clavicle fracture, admitted to , complicated by UTI, iron deficiency anemia, transferred to TCU with debility, here for rehabilitation, strengthening, prior to discharge home alone. * Debility - PT/OT. * Cognition - ST. * Pain - Tylenol 1000mg tid, Tramadol 25mg q6, Lidoderm patch td daily. * Bowel - senna/colace 1 tablet bid prn, Metamucil 1 packet daily, Dulcolax 10mg pr daily prn, MOM 30ml po x 1 prn, Fleet enema 133ml pr daily prn. * Adult immunization - Administer pneumonia vaccine, covid vaccine, flu vaccine as appropriate. * DVT prophylaxis - on Eliquis. * Atrial fibrillation - Eliquis 2.5mg bid. * Iron deficiency anemia - Vitamin C 1000mg daily, Ferrous sulfate 325mg daily, Sodium ferric gluconate 250mg iv daily thru 12/19/2023. * Alzheimer Disease - Donepezil 5mg qhs. 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 * Hypothyroidism - Levothyroxine 112mcg daily. * Hypertension - Lisinopril 2.5mg qhs. * Nutrition - MVI 1 tablet daily. * GERD - Pantoprazole 40mg daily.
[2023-12-15 21:00] VITALS: BP 137/55; PULSE 70
[2023-12-15] MEDS: Acetaminophen 500 MG Tablet 1000 MG PO (21:13)
[2023-12-15] MEDS: Lisinopril 2.5 MG Tablet PO (21:13)
[2023-12-15] MEDS: APIXABAN 2.5 MG TABLET (WCH) PO (21:14)
[2023-12-15] MEDS: Donepezil HCl 5 MG Tablet PO (21:14)
[2023-12-16] MEDS: traMADol 50 MG Tablet 25 MG PO ×5 (00:20→23:24)
[2023-12-16 06:00] LABS: Absolute Lymphocyte Count 1.09 X10^3/uL (0.83-4.51); Absolute Neutrophil Count 3.6 X10^3/uL (2.0-7.7); Basophil# 0.09 X10^3/uL; Basophil% 1.5 % (0-1); Eosinophil# 0.61 X10^3/uL; Eosinophils% 9.8 % (0-5); Hematocrit 34.3 % (37-47); Hemoglobin 10.6 g/dL (12.0-15.0); Lymphocyte # 1.09 X10^3/ul (0.83-4.51); Lymphocyte % 17.6 % (19-41); Mean Corp Hgb Conc 30.9 g/dL (32-36); Mean Corpuscular Hgb 29.5 pg (27.0-32.0); Mean Corpuscular Volume 95.5 fL (81-99); Mean Platelet Vol. 10.1 fl (6.2-12.0); Monocyte# 0.77 X10^3/uL; Monocyte% 12.4 % (0-10); NRBC Flagged by Analyzer 0 % (0-5); Neutrophil % 58.1 % (47-70); Platelet Count 297 K/mm3 (150-450); RBC Distribution Width CV 13.3 % (11.6-14.6); RBC Distribution Width SD 47.2 fl (35.1-43.9); Red Blood Count 3.59 M/mm3 (4.2-5.4); White Blood Count 6.2 K/mm3 (4.4-11.0)
[2023-12-16 06:28] LABS: Anion Gap 4 (5-15); BUN 34 mg/dL (7-18); BUN/Creat Ratio 32.4 RATIO (10-20); Chloride 107 mmol/L (98-107); Creatinine, Serum 1.05 mg/dL (0.55-1.02); EST Glomerular Filtration Rate 53 mL/min (>60); Est Glom Filt Rate - Afr Amer 64 mL/min (>60); Estimated Creatinine Clearance 38.08 ml/min; Glucose 88 mg/dL (74-106); Potassium 4.5 mmol/L (3.5-5.1); Sodium Level 139 mmol/L (136-145)
[2023-12-16] MEDS: Lidocaine 5% Patch 1 PATCH TOPICAL (06:33)
[2023-12-16] MEDS: Levothyroxine 112 MCG Tablet PO (06:34)
[2023-12-16] MEDS: Sodium Ferric Gluconat/Sucrose 250 MG in 0.9% Normal Saline (250mL Bag) 250 ML 135 MG IV (10:13)
[2023-12-16] MEDS: Acetaminophen 500 MG Tablet 1000 MG PO ×3 (10:28→23:25)
[2023-12-16] MEDS: Multivitamins,Ther W-Minerals Tablet 1 TABLET PO (10:28)
[2023-12-16] MEDS: APIXABAN 2.5 MG TABLET (WCH) PO ×2 (10:29→23:25)
[2023-12-16] MEDS: Pantoprazole Sodium 40 MG Tablet PO (10:30)
[2023-12-16] MEDS: Psyllium 1 PACKET PO (10:30)
[2023-12-16] MEDS: Escitalopram Oxalate 10 MG Tablet 5 MG PO (10:30)
[2023-12-16] MEDS: Ascorbic Acid 500 MG Tablet 1000 MG PO (10:30)
[2023-12-16] MEDS: Tuberculin,Purif.prot.deriv. 50 TU/ML Vial 0.1 ML ID (11:21)
--- NOTE | 2023-12-16 12:01 | NURSING ---
Property Management Assistant Note; Activity Asset: Harvey Lu is independent in here choice of daily activities. She was a resident here 2 years ago and remembers most the staff. 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 She enjoys watching football, tv, reading spending time talking w/others and her family. She has word puzzles and her books along w/her smartphone. Staff will encourage group activities and remind her of weekly actives and respect her right to say no.
[2023-12-16 15:23] VITALS: BP 121/61; PULSE 71; RESP 18; TEMP 36.2; O2SAT 96
[2023-12-16] MEDS: Lisinopril 2.5 MG Tablet PO (23:25)
[2023-12-16] MEDS: Donepezil HCl 5 MG Tablet PO (23:25)
[2023-12-16 23:28] VITALS: BP 129/63; PULSE 70
[2023-12-17] MEDS: Levothyroxine 112 MCG Tablet PO (06:08)
[2023-12-17] MEDS: traMADol 50 MG Tablet 25 MG PO ×3 (06:09→18:43)
[2023-12-17] MEDS: Lidocaine 5% Patch 1 PATCH TOPICAL (06:10)
[2023-12-17 08:52] VITALS: BP 131/75; PULSE 70; RESP 18; TEMP 36.3; O2SAT 99
[2023-12-17] MEDS: Escitalopram Oxalate 10 MG Tablet 5 MG PO (08:54)
[2023-12-17] MEDS: Pantoprazole Sodium 40 MG Tablet PO (08:54)
[2023-12-17] MEDS: Multivitamins,Ther W-Minerals Tablet 1 TABLET PO (08:54)
[2023-12-17] MEDS: Psyllium 1 PACKET PO (08:54)
[2023-12-17] MEDS: APIXABAN 2.5 MG TABLET (WCH) PO ×2 (08:54→21:45)
[2023-12-17] MEDS: Acetaminophen 500 MG Tablet 1000 MG PO ×3 (08:54→21:45)
[2023-12-17] MEDS: Ascorbic Acid 500 MG Tablet 1000 MG PO (08:55)
[2023-12-17] MEDS: Sodium Ferric Gluconat/Sucrose 250 MG in 0.9% Normal Saline (250mL Bag) 250 ML 135 MG IV (10:34)
[2023-12-17] MEDS: 0.9% Saline Lock 10 ML Syringe IV ×2 (10:34→21:44)
[2023-12-17 11:42] VITALS: PULSE 67; RESP 16; O2SAT 92
--- NOTE | 2023-12-17 12:57 | NURSING ---
pt c/o severe WEST, dr neal notified. new order to change ultram PRN & given naproxen 500mg x1 now. possible rebound WEST from scheduled Ultram. pt does not usually get headaches
[2023-12-17] MEDS: Naproxen 500 MG Tablet PO (13:07)
[2023-12-17] MEDS: Lisinopril 2.5 MG Tablet PO (21:45)
[2023-12-17] MEDS: Donepezil HCl 5 MG Tablet PO (21:46)
[2023-12-18] MEDS: traMADol 50 MG Tablet 25 MG PO ×4 (00:24→18:06)
[2023-12-18] MEDS: Levothyroxine 112 MCG Tablet PO (06:39)
[2023-12-18 08:24] VITALS: BP 151/70; PULSE 69; RESP 16; TEMP 36.4; O2SAT 98
[2023-12-18] MEDS: APIXABAN 2.5 MG TABLET (WCH) PO ×2 (08:33→20:39)
[2023-12-18] MEDS: Ascorbic Acid 500 MG Tablet 1000 MG PO (08:33)
[2023-12-18] MEDS: Pantoprazole Sodium 40 MG Tablet PO (08:33)
[2023-12-18] MEDS: Acetaminophen 500 MG Tablet 1000 MG PO ×3 (08:33→20:39)
[2023-12-18] MEDS: Multivitamins,Ther W-Minerals Tablet 1 TABLET PO (08:34)
[2023-12-18] MEDS: Escitalopram Oxalate 10 MG Tablet 5 MG PO (08:34)
[2023-12-18] MEDS: Psyllium 1 PACKET PO (08:34)
[2023-12-18] MEDS: Lidocaine 5% Patch 1 PATCH TOPICAL (08:34)
[2023-12-18] MEDS: 0.9% Saline Lock 10 ML Syringe IV ×2 (09:47→20:34)
[2023-12-18] MEDS: Sodium Ferric Gluconat/Sucrose 250 MG in 0.9% Normal Saline (250mL Bag) 250 ML 135 MG IV (09:47)
[2023-12-18 18:00] VITALS: PULSE 70; RESP 16; O2SAT 97
[2023-12-18] MEDS: Donepezil HCl 5 MG Tablet PO (20:39)
[2023-12-18] MEDS: Lisinopril 2.5 MG Tablet PO (20:39)
[2023-12-18 20:42] VITALS: BP 135/62; PULSE 69; RESP 16
[2023-12-19] MEDS: traMADol 50 MG Tablet 25 MG PO ×4 (00:10→21:53)
[2023-12-19] MEDS: Levothyroxine 112 MCG Tablet PO (05:43)
[2023-12-19 05:56] VITALS: PULSE 78; RESP 14; O2SAT 96
--- NOTE | 2023-12-19 07:25 | PCM.PN.DRR ---
Documented by User: Fauzia Jackson 12/19/23 07:57 TCU RX Drug Regimen Review Subjective/Objective Subjective/Objective: Subjective: TCU Admission. 88 YOF presented to the ER with fall. Hospitalized for right pelvis fracture, nondisplaced right clavicle fracture, admitted to RU, complicated by UTI, iron deficiency anemia. Admitted to TCU with debility for strengthening and rehabilitation. Objective: Allergies Environmental Allergies: Uncoded Allergy (Mild, Verified 11/27/23 16:57) sneezing latex Adverse Reaction (Verified 11/27/23 16:57) Itching sulfamethoxazole [From Bactrim] Adverse Reaction (Verified 11/27/23 16:57) Nausea trimethoprim [From Bactrim] Adverse Reaction (Verified 11/27/23 16:57) Nausea Current Medications Generic Name Dose Route Start Last Admin Trade Name Freq PRN Reason Stop Dose Admin Acetaminophen 1,000 mg 12/15/23 20:00 12/18/23 20:39 Acetaminophen 500 Mg Tablet PO 1,000 mg 0900,1500,2000 [facility] Administration Apixaban 2.5 mg 12/15/23 22:00 12/18/23 20:39 Apixaban 2.5 Mg Tablet ([facility]) PO 2.5 mg BID SONIA Administration Ascorbic Acid 1,000 mg 12/16/23 10:00 12/18/23 08:33 Ascorbic Acid 500 Mg Tablet PO 1,000 mg DAILY SONIA Administration Bisacodyl 10 mg 12/15/23 15:43 Bisacodyl 10 Mg Suppository RC DAILY PRN Constipation Donepezil HCl 5 mg 12/15/23 22:00 12/18/23 20:39 Donepezil Hcl 5 Mg Tablet PO 5 mg QHS SONIA Administration Escitalopram Oxalate 5 mg 12/16/23 10:00 12/18/23 08:34 Escitalopram Oxalate 10 Mg Tablet PO 5 mg DAILY SONIA Administration Ferrous Sulfate 325 mg 12/20/23 12:00 Ferrous Sulfate 325 Mg Tablet PO DAILY@1200 [facility] Ferric Sodium Gluconate 270 mls @ 135 mls/hr 12/16/23 10:00 12/18/23 12:26 Complex 250 mg/ Sodium IV 12/19/23 11:59 Infused Chloride DAILY [facility] Infusion Levothyroxine Sodium 112 mcg 12/16/23 06:00 12/19/23 05:43 Levothyroxine 112 Mcg Tablet PO 112 mcg 0600 SONIA Administration Lidocaine 1 patch 12/16/23 07:00 12/18/23 08:34 Lidocaine 5% Patch TOPICAL 1 patch 0700 [facility] Administration Protocol Lisinopril 2.5 mg 12/15/23 22:00 12/18/23 20:39 Lisinopril 2.5 Mg Tablet PO 2.5 mg QHS SONIA Administration Protocol Magnesium Hydroxide 30 ml 12/15/23 15:28 Magnesium Hydroxide 30 Ml Udc PO X1 PRN Constipation Multivitamins/Minerals 1 tablet 12/16/23 08:00 12/18/23 08:34 Multivitamins,Ther W-Minerals Tablet PO 1 tablet DAILYCM SONIA Administration Pantoprazole Sodium 40 mg 12/16/23 10:00 12/18/23 08:33 Pantoprazole Sodium 40 Mg Tablet PO 40 mg DAILY SONIA Administration Psyllium Hydrophilic Mucilloid 1 packet 12/16/23 10:00 12/18/23 08:34 Psyllium 1 Packet PO 1 packet DAILY SONIA Administration Senna/Docusate Sodium 1 tablet 12/15/23 15:28 Senna/Docusate Sodium 1 Tablet PO BID PRN Constipation Sodium Biphosphate/Sodium Phosphate 133 ml 12/15/23 19:06 Fleet Enema RC DAILY PRN Constipation Sodium Chloride 10 - 40 ml 12/16/23 10:39 12/18/23 20:34 0.9% Saline Lock 10 Ml Syringe IV 10 ml UD PRN Administration SALINE FLUSH Tramadol HCl 25 mg 12/17/23 18:00 12/19/23 05:42 Tramadol 50 Mg Tablet PO 25 mg Q6 SONIA Administration Tuberculin PPD 0.1 ml 12/23/23 10:00 Tuberculin,Purif.Prot.Deriv. 50 Tu/Ml Vial ID 12/23/23 10:01 X1 ONE Problem List (Updated 12/15/23 @ 18:[address] Rod Ochoa MD) Rheumatoid arthritis (Acute) Microscopic colitis (Acute) Essential (primary) hypertension (Acute) Alzheimer disease (Acute) Complete heart block (Acute) Atrial fibrillation (Acute) Asthma (Acute) Osteoarthritis (Acute) Anxiety (Acute) Depression (Acute) Hypothyroidism (Acute) Iron deficiency anemia (Acute) Urinary tract infection (Acute) Right clavicle fracture (Acute) Pelvis fracture, right (Acute) Debility (Acute) Vital Signs Temp Pulse Resp BP Pulse Ox O2 Del Method 97.6 F L 78 14 135/62 H 96 Room Air 12/18/23 08:24 12/19/23 05:56 12/19/23 05:56 12/18/23 20:42 12/19/23 05:56 12/19/23 05:56 Oxygen Delivery Method Room Air Weight: 71.668 kg Body Mass Index (BMI) 24.0 Sodium 139 mmol/L (136-145) 12/16/23 05:24 Potassium 4.5 mmol/L (3.5-5.1) 12/16/23 05:24 Chloride 107 mmol/L (98-107) 12/16/23 05:24 Carbon Dioxide 28.0 mmol/L (21.0-32.0) 12/16/23 05:24 Anion Gap 4 (5-15) L 12/16/23 05:24 BUN 34 mg/dL (7-18) H 12/16/23 05:24 Creatinine 1.05 mg/dL (0.55-1.02) H 12/16/23 05:24 Est GFR (MDRD) Af Amer 64 mL/min (>60) 12/16/23 05:24 Est GFR (MDRD) Non-Af 53 mL/min (>60) L 12/16/23 05:24 BUN/Creatinine Ratio 32.4 RATIO (10-20) H 12/16/23 05:24 Glucose 88 mg/dL (74-106) 12/16/23 05:24 Assessment/Plan: 1. Pain: acetaminophen 1000mg PO TID, tramadol 25mg PO Q8 (decreased from Q6 this morning) and lidocaine patch 5% TD daily. Please continue to monitor for increased pain, renal function, constipation, respiratory depression, rash and confusion. 2. Bowel: senna/docusate 1T PO BID PRN constipation, psyllium 1 packet PO daily, bisacodyl 10mg RX daily PRN constipation, MOM 30ML PO x1 PRN constipation and fleet enema RC daily PRN constipation. Resident has not used any PRN doses. Last documented bowel movement 12/14. Please consider giving PRN doses as the last bowel movement was 4 days ago and patient is on scheduled tramadol. 3. Atrial fibrillation: apixaban 2.5mg PO BID. Resident only meets 1 criteria for decreased dose based on age >80 (SCr <1.5mg/dL and weight >60kg), but had occult (+) stool on 12/12. Please continue to monitor for S/S of bleeding and hemoglobin (last 10.6g/dL). 4. Iron deficiency anemia: ascorbic acid 1000mg PO daily, ferrous sulfate 325mg PO daily (starting 12/19) and sodium ferric gluconate 250mg IV daily thru 12/18. Please continue to monitor hemoglobin, dark stools and constipation. Please consider iron studies as the last are from 10/07/22. Thanks. 5. Alzheimer disease: donepezil 5mg PO QHS. Please continue to monitor BP and for GI side effects. 6. Hypertension: lisinopril 2.5mg PO QHS. Please continue to monitor BP (last 135/62), potassium (last 4.5mmol/L), SCr (1.05mg/dL) and cough. 7. Hypothyroidism: levothyroxine 112 mcg PO daily. Please continue to monitor TSH (last 11/28/23) and S/S of hypo/hyperthyroidism. 8. GERD: pantoprazole 40mg PO daily. Please continue to monitor for S/S of GERD, diarrhea (BEERs medication) and magnesium (last 2.2mg/dL). 9. Nutrition: multivitamin with minerals 1T PO DAILYCM. Please continue to monitor. Assessment/Plan for indications treated with psychotropic medications: 1. Depression: escitalopram 5mg PO daily. Please see physician note regarding GDR. Please continue to monitor for suicidal ideation (black box warning), falls/fractures (BEERs medication), GI side effects, and sodium (last 139mmol/L). Medical chart and medication regimen reviewed. The following medication irregularities or issues were identified: 1. Ferrous sulfate 325mg PO every other day (starting 12/19) and sodium ferric gluconate 250mg IV daily thru 12/18. Please consider iron studies as the last are from 10/07/22. Thanks. Date Date of Note:: 12/19/23 Documented by User: Dr. Rod Ochoa MD 12/19/23 08:01 TCU RX Drug Regimen Review Provider Comments Provider responsibility Provider Comments to Recommendations by Pharmacy: Agree
[2023-12-19] MEDS: Acetaminophen 500 MG Tablet 1000 MG PO ×3 (10:18→21:54)
[2023-12-19] MEDS: Sodium Ferric Gluconat/Sucrose 250 MG in 0.9% Normal Saline (250mL Bag) 250 ML 135 MG IV (10:18)
[2023-12-19] MEDS: Multivitamins,Ther W-Minerals Tablet 1 TABLET PO (10:18)
[2023-12-19] MEDS: Ascorbic Acid 500 MG Tablet 1000 MG PO (10:18)
[2023-12-19] MEDS: Psyllium 1 PACKET PO (10:18)
[2023-12-19] MEDS: APIXABAN 2.5 MG TABLET (WCH) PO ×2 (10:19→21:54)
[2023-12-19] MEDS: Lidocaine 5% Patch 1 PATCH TOPICAL (10:19)
[2023-12-19] MEDS: Pantoprazole Sodium 40 MG Tablet PO (10:19)
[2023-12-19] MEDS: Escitalopram Oxalate 10 MG Tablet 5 MG PO (10:19)
[2023-12-19] MEDS: 0.9% Saline Lock 10 ML Syringe IV (10:24)
[2023-12-19 11:33] LABS: Iron 203 ug/dL (50-170); Iron Binding Capacity,Total 266 ug/dL (250-450); PERCENT IRON SATURATION 76.3 % (15.0-55.0)
[2023-12-19 13:53] VITALS: BP 138/64; PULSE 70; RESP 16; TEMP 37; O2SAT 96
--- NOTE | 2023-12-19 14:54 | NURSING ---
Offered covid vaccine, VIS provided. Patient refuses at this time.
[2023-12-19 21:50] VITALS: BP 114/54; PULSE 69
[2023-12-19] MEDS: Lisinopril 2.5 MG Tablet PO (21:54)
[2023-12-19] MEDS: Donepezil HCl 5 MG Tablet PO (21:54)
[2023-12-20] MEDS: traMADol 50 MG Tablet 25 MG PO ×3 (06:25→21:41)
[2023-12-20] MEDS: Levothyroxine 112 MCG Tablet PO (06:25)
[2023-12-20] MEDS: Lidocaine 5% Patch 1 PATCH TOPICAL (06:25)
[2023-12-20] MEDS: Escitalopram Oxalate 10 MG Tablet 5 MG PO (08:23)
[2023-12-20] MEDS: Acetaminophen 500 MG Tablet 1000 MG PO ×3 (08:23→21:40)
[2023-12-20] MEDS: Multivitamins,Ther W-Minerals Tablet 1 TABLET PO (08:23)
[2023-12-20] MEDS: APIXABAN 2.5 MG TABLET (WCH) PO ×2 (08:24→21:40)
[2023-12-20] MEDS: Ascorbic Acid 500 MG Tablet 1000 MG PO (08:24)
[2023-12-20] MEDS: Psyllium 1 PACKET PO (08:24)
[2023-12-20] MEDS: Pantoprazole Sodium 40 MG Tablet PO (08:24)
[2023-12-20] MEDS: 0.9% Saline Lock 10 ML Syringe IV ×2 (10:54→20:07)
[2023-12-20] MEDS: Ferrous Sulfate 325 MG Tablet PO (10:54)
[2023-12-20 13:31] VITALS: BMI 23.9
[2023-12-20 16:00] VITALS: BP 117/62; PULSE 72; RESP 15; TEMP 36.8; O2SAT 98
[2023-12-20 19:49] VITALS: RESP 15
[2023-12-20] MEDS: Donepezil HCl 5 MG Tablet PO (21:40)
[2023-12-20] MEDS: Lisinopril 2.5 MG Tablet PO (21:41)
[2023-12-20 21:43] VITALS: BP 103/50; PULSE 70
[2023-12-21] MEDS: traMADol 50 MG Tablet 25 MG PO ×3 (05:24→21:11)
[2023-12-21] MEDS: Levothyroxine 112 MCG Tablet PO (05:25)
[2023-12-21] MEDS: Lidocaine 5% Patch 1 PATCH TOPICAL (06:55)
[2023-12-21] MEDS: Acetaminophen 500 MG Tablet 1000 MG PO ×3 (09:47→20:50)
[2023-12-21] MEDS: APIXABAN 2.5 MG TABLET (WCH) PO ×2 (09:47→21:11)
[2023-12-21] MEDS: Ascorbic Acid 500 MG Tablet 1000 MG PO (09:47)
[2023-12-21] MEDS: Escitalopram Oxalate 10 MG Tablet 5 MG PO (09:47)
[2023-12-21] MEDS: Multivitamins,Ther W-Minerals Tablet 1 TABLET PO (09:47)
[2023-12-21] MEDS: Pantoprazole Sodium 40 MG Tablet PO (09:47)
[2023-12-21] MEDS: Psyllium 1 PACKET PO (09:47)
[2023-12-21] MEDS: 0.9% Saline Lock 10 ML Syringe IV ×2 (10:58→20:51)
[2023-12-21] MEDS: Ferrous Sulfate 325 MG Tablet PO (11:49)
[2023-12-21 15:15] VITALS: BP 101/49; PULSE 70; RESP 16; TEMP 36.1; O2SAT 97
--- NOTE | 2023-12-21 17:09 | CASEMGMT ---
Social Work IDT met with patient, her caregiver Krupa and her son Oleksandr was on the phone. Discussed patient's progress in PT/OT/ST Pt is making progress. Educated to Medicare coverage and no DC date set yet. Goal is for pateint to return home. Therapy is recommending [address] Pt caregiver stated this will be an option for patient as caregiver plans to make necessary arrangements. Pt [facility] use [facility] DC. No DME needs identified at this time. SW will continue to follow and assist with DC planning. Guillermina FIGUEROA
[2023-12-21 20:53] VITALS: BP 118/57; PULSE 69
[2023-12-21] MEDS: Donepezil HCl 5 MG Tablet PO (21:12)
[2023-12-21] MEDS: Lisinopril 2.5 MG Tablet PO (21:12)
[2023-12-22] MEDS: Levothyroxine 112 MCG Tablet PO (05:41)
[2023-12-22] MEDS: traMADol 50 MG Tablet 25 MG PO ×3 (05:41→20:44)
[2023-12-22 08:32] VITALS: BP 127/77; PULSE 69; RESP 16; TEMP 36.2; O2SAT 94
[2023-12-22] MEDS: Psyllium 1 PACKET PO (08:35)
[2023-12-22] MEDS: Multivitamins,Ther W-Minerals Tablet 1 TABLET PO (08:35)
[2023-12-22] MEDS: Escitalopram Oxalate 10 MG Tablet 5 MG PO (08:35)
[2023-12-22] MEDS: Acetaminophen 500 MG Tablet 1000 MG PO ×3 (08:35→20:43)
[2023-12-22] MEDS: APIXABAN 2.5 MG TABLET (WCH) PO ×2 (08:35→20:44)
[2023-12-22] MEDS: Ascorbic Acid 500 MG Tablet 1000 MG PO (08:36)
[2023-12-22] MEDS: Pantoprazole Sodium 40 MG Tablet PO (08:36)
[2023-12-22] MEDS: Lidocaine 5% Patch 1 PATCH TOPICAL (08:37)
--- NOTE | 2023-12-22 10:13 | CASEMGMT ---
Social Work SW met with patient and completed MDS interviews. BIMS 04/19 PHQ2 0/0 Guillermina FIGUEROA
[2023-12-22] MEDS: Ferrous Sulfate 325 MG Tablet PO (11:51)
[2023-12-22] MEDS: 0.9% Saline Lock 10 ML Syringe IV (12:17)
[2023-12-22 12:41] VITALS: PULSE 67; RESP 16; O2SAT 96
[2023-12-22 20:40] VITALS: BP 114/59; PULSE 70
[2023-12-22] MEDS: Lisinopril 2.5 MG Tablet PO (20:44)
[2023-12-22] MEDS: Donepezil HCl 5 MG Tablet PO (20:44)
[2023-12-23] MEDS: Levothyroxine 112 MCG Tablet PO (05:12)
[2023-12-23] MEDS: traMADol 50 MG Tablet 25 MG PO ×3 (05:12→20:45)
[2023-12-23 05:52] LABS: Absolute Lymphocyte Count 1.17 X10^3/uL (0.83-4.51); Basophil# 0.08 X10^3/uL; Basophil% 1.4 % (0-1); Eosinophils% 10.7 % (0-5); Hemoglobin 10.8 g/dL (12.0-15.0); Lymphocyte # 1.17 X10^3/ul (0.83-4.51); Lymphocyte % 20.8 % (19-41); Mean Corp Hgb Conc 30.9 g/dL (32-36); Mean Corpuscular Hgb 29.3 pg (27.0-32.0); Mean Corpuscular Volume 95.1 fL (81-99); Mean Platelet Vol. 10.2 fl (6.2-12.0); Monocyte# 0.75 X10^3/uL; Monocyte% 13.3 % (0-10); NRBC Flagged by Analyzer 0 % (0-5); Neutrophil # 2.97 X10^3/uL (2.7-7.7); Neutrophil % 52.9 % (47-70); Platelet Count 201 K/mm3 (150-450); RBC Distribution Width CV 13.7 % (11.6-14.6); RBC Distribution Width SD 48.1 fl (35.1-43.9); Red Blood Count 3.68 M/mm3 (4.2-5.4); White Blood Count 5.6 K/mm3 (4.4-11.0)
[2023-12-23 06:19] LABS: Anion Gap 3 (5-15); BUN 35 mg/dL (7-18); Calcium,Total 9.3 mg/dL (8.5-10.1); Chloride 107 mmol/L (98-107); Creatinine, Serum 0.97 mg/dL (0.55-1.02); EST Glomerular Filtration Rate 58 mL/min (>60); Est Glom Filt Rate - Afr Amer 70 mL/min (>60); Estimated Creatinine Clearance 41.22 ml/min; Glucose 100 mg/dL (74-106); Potassium 4.4 mmol/L (3.5-5.1); Sodium Level 138 mmol/L (136-145)
[2023-12-23] MEDS: Lidocaine 5% Patch 1 PATCH TOPICAL (06:21)
[2023-12-23 08:06] VITALS: BP 128/65; PULSE 69; RESP 16; TEMP 36.6; O2SAT 97
[2023-12-23] MEDS: Escitalopram Oxalate 10 MG Tablet 5 MG PO (08:09)
[2023-12-23] MEDS: APIXABAN 2.5 MG TABLET (WCH) PO ×2 (08:09→20:44)
[2023-12-23] MEDS: Pantoprazole Sodium 40 MG Tablet PO (08:10)
[2023-12-23] MEDS: Acetaminophen 500 MG Tablet 1000 MG PO ×3 (08:10→20:43)
[2023-12-23] MEDS: Psyllium 1 PACKET PO (08:10)
[2023-12-23] MEDS: Ascorbic Acid 500 MG Tablet 1000 MG PO (08:10)
[2023-12-23] MEDS: Multivitamins,Ther W-Minerals Tablet 1 TABLET PO (08:10)
--- NOTE | 2023-12-23 08:52 | NURSING ---
Special Agent In Charge Note, MDS for 12/22/2023 Complete
[2023-12-23] MEDS: Tuberculin,Purif.prot.deriv. 50 TU/ML Vial 0.1 ML ID (12:53)
[2023-12-23] MEDS: Ferrous Sulfate 325 MG Tablet PO (12:53)
[2023-12-23 13:02] VITALS: PULSE 70; RESP 16; O2SAT 93
[2023-12-23] MEDS: Lisinopril 2.5 MG Tablet PO (20:43)
[2023-12-23] MEDS: Donepezil HCl 5 MG Tablet PO (20:44)
[2023-12-23 20:55] VITALS: BP 107/49; PULSE 69
[2023-12-24] MEDS: Levothyroxine 112 MCG Tablet PO (06:06)
[2023-12-24] MEDS: traMADol 50 MG Tablet 25 MG PO ×3 (06:07→20:53)
[2023-12-24] MEDS: Acetaminophen 500 MG Tablet 1000 MG PO ×3 (06:07→20:48)
[2023-12-24] MEDS: Lidocaine 5% Patch 1 PATCH TOPICAL (06:08)
[2023-12-24] MEDS: Escitalopram Oxalate 10 MG Tablet 5 MG PO (09:12)
[2023-12-24] MEDS: Pantoprazole Sodium 40 MG Tablet PO (09:12)
[2023-12-24] MEDS: Ascorbic Acid 500 MG Tablet 1000 MG PO (09:12)
[2023-12-24] MEDS: Multivitamins,Ther W-Minerals Tablet 1 TABLET PO (09:13)
[2023-12-24] MEDS: APIXABAN 2.5 MG TABLET (WCH) PO ×2 (09:13→20:48)
[2023-12-24] MEDS: Psyllium 1 PACKET PO (09:13)
[2023-12-24 10:00] VITALS: RESP 17
[2023-12-24] MEDS: Ferrous Sulfate 325 MG Tablet PO (11:36)
[2023-12-24 14:32] VITALS: BP 101/55; PULSE 65; RESP 16; TEMP 36.3; O2SAT 98
[2023-12-24 14:34] VITALS: BP 101/45; PULSE 70; RESP 22; TEMP 36.7; O2SAT 94
[2023-12-24] MEDS: Lisinopril 2.5 MG Tablet PO (20:48)
[2023-12-24] MEDS: Donepezil HCl 5 MG Tablet PO (20:48)
[2023-12-25] MEDS: Levothyroxine 112 MCG Tablet PO (05:06)
[2023-12-25] MEDS: traMADol 50 MG Tablet 25 MG PO ×3 (05:06→21:24)
[2023-12-25] MEDS: Lidocaine 5% Patch 1 PATCH TOPICAL (05:08)
[2023-12-25] MEDS: Acetaminophen 500 MG Tablet 1000 MG PO ×3 (09:58→21:15)
[2023-12-25] MEDS: APIXABAN 2.5 MG TABLET (WCH) PO ×2 (09:59→21:16)
[2023-12-25] MEDS: Multivitamins,Ther W-Minerals Tablet 1 TABLET PO (09:59)
[2023-12-25] MEDS: Escitalopram Oxalate 10 MG Tablet 5 MG PO (10:00)
[2023-12-25] MEDS: Psyllium 1 PACKET PO (10:00)
[2023-12-25] MEDS: Pantoprazole Sodium 40 MG Tablet PO (10:00)
[2023-12-25] MEDS: Ascorbic Acid 500 MG Tablet 1000 MG PO (10:00)
[2023-12-25] MEDS: Ferrous Sulfate 325 MG Tablet PO (11:26)
[2023-12-25 14:40] VITALS: BP 103/56; PULSE 71; RESP 18; TEMP 36.4; O2SAT 97
[2023-12-25] MEDS: Donepezil HCl 5 MG Tablet PO (21:15)
[2023-12-25] MEDS: Lisinopril 2.5 MG Tablet PO (21:29)
[2023-12-25 21:33] VITALS: BP 108/50; PULSE 69
[2023-12-26] MEDS: traMADol 50 MG Tablet 25 MG PO ×3 (06:01→21:06)
[2023-12-26] MEDS: Levothyroxine 112 MCG Tablet PO (06:03)
[2023-12-26 08:21] VITALS: BP 126/60; PULSE 69; RESP 16; TEMP 36.2; O2SAT 98
[2023-12-26] MEDS: APIXABAN 2.5 MG TABLET (WCH) PO ×2 (08:23→21:06)
[2023-12-26] MEDS: Lidocaine 5% Patch 1 PATCH TOPICAL (08:23)
[2023-12-26] MEDS: Multivitamins,Ther W-Minerals Tablet 1 TABLET PO (08:23)
[2023-12-26] MEDS: Acetaminophen 500 MG Tablet 1000 MG PO ×3 (08:23→21:07)
[2023-12-26] MEDS: Psyllium 1 PACKET PO (08:24)
[2023-12-26] MEDS: Ascorbic Acid 500 MG Tablet 1000 MG PO (08:24)
[2023-12-26] MEDS: Pantoprazole Sodium 40 MG Tablet PO (08:24)
[2023-12-26] MEDS: Escitalopram Oxalate 10 MG Tablet 5 MG PO (08:24)
[2023-12-26] MEDS: Ferrous Sulfate 325 MG Tablet PO (12:11)
--- NOTE | 2023-12-26 15:10 | NURSING ---
pt has appt on 01/01 with Krupa bennett, caregiver is transporting. Therapy will set up a day to train on car transfers.
[2023-12-26 21:05] VITALS: RESP 16
[2023-12-26] MEDS: Donepezil HCl 5 MG Tablet PO (21:07)
[2023-12-26] MEDS: Lisinopril 2.5 MG Tablet PO (21:07)
[2023-12-26 21:12] VITALS: BP 112/53; PULSE 69
[2023-12-27] MEDS: traMADol 50 MG Tablet 25 MG PO (05:14)
[2023-12-27] MEDS: Levothyroxine 112 MCG Tablet PO (05:14)
[2023-12-27 05:15] VITALS: RESP 16
[2023-12-27 10:14] VITALS: BMI 23.3
[2023-12-27] MEDS: Ascorbic Acid 500 MG Tablet 1000 MG PO (10:21)
[2023-12-27] MEDS: Pantoprazole Sodium 40 MG Tablet PO (10:21)
[2023-12-27] MEDS: Multivitamins,Ther W-Minerals Tablet 1 TABLET PO (10:21)
[2023-12-27] MEDS: Lidocaine 5% Patch 1 PATCH TOPICAL (10:21)
[2023-12-27] MEDS: Psyllium 1 PACKET PO (10:21)
[2023-12-27] MEDS: Escitalopram Oxalate 10 MG Tablet 5 MG PO (10:22)
[2023-12-27] MEDS: APIXABAN 2.5 MG TABLET (WCH) PO ×2 (10:22→21:41)
[2023-12-27] MEDS: Acetaminophen 500 MG Tablet 1000 MG PO ×3 (10:22→21:41)
[2023-12-27] MEDS: Ferrous Sulfate 325 MG Tablet PO (11:55)
--- NOTE | 2023-12-27 14:15 | CHAPLAIN ---
Type of Pastoral Visit ___ Initial Visit _x__ Follow-up Visit ___ On-call Visit ___ General Patient Visit ___ Spiritual Assessment ___ Family Conference ___ Bereavement ___ Rapid Response ___ Code Blue ___ Other (describe below) Pastoral Care Referral From _x__ Patient ___ Family ___ Nurse ___ Physician ___ Health Care Technician ___ Punch Press Setter ___ Other (describe below) Sacrament/Intervention _x__ Active listening ___ Anointing ___ Moravian ___ Bereavement ___ Communion ___ Mary exploration ___ _x__ Life review _x__ Prayer ___ Reconciliation ___ Sacrament of Sick _x__ Supportive presence ___ Wedding ___ Other (describe below) Pastoral Comments patient has been seen in several different parts of the hospital but she does not remember the visits; pt admits to being alone due to her four sons living out of the area and not checking in on her; pt speaks of her recovery but going so slow; pt refers to reading but doesn't like what she has to read now so this vp project went to activities area and brought her back a few books to choose from to read; time given to listen to patient which was conversation mostly about her room and being on the opposite side from being able to see her house from here; pt welcomed a prayer and became quite tearful at that; pt expresses thanks for the visit
[2023-12-27 14:56] VITALS: BP 99/42; PULSE 69; RESP 14; TEMP 36.5; O2SAT 97
--- NOTE | 2023-12-27 14:58 | MDS.RN ---
Information for the MDS was obtained from review of the clinical record, interview of resident, staff, and direct observation of resident?s care.
[2023-12-27] MEDS: Lisinopril 2.5 MG Tablet PO (21:40)
[2023-12-27] MEDS: Donepezil HCl 5 MG Tablet PO (21:41)
[2023-12-28] MEDS: Levothyroxine 112 MCG Tablet PO (05:41)
[2023-12-28 06:56] VITALS: RESP 16
[2023-12-28 09:27] VITALS: BP 105/44; PULSE 70; RESP 16; TEMP 36.3; O2SAT 99
[2023-12-28] MEDS: Multivitamins,Ther W-Minerals Tablet 1 TABLET PO (09:31)
[2023-12-28] MEDS: Lidocaine 5% Patch 1 PATCH TOPICAL (09:31)
[2023-12-28] MEDS: Pantoprazole Sodium 40 MG Tablet PO (09:32)
[2023-12-28] MEDS: Acetaminophen 500 MG Tablet 1000 MG PO ×3 (09:32→20:10)
[2023-12-28] MEDS: Psyllium 1 PACKET PO (09:32)
[2023-12-28] MEDS: APIXABAN 2.5 MG TABLET (WCH) PO ×2 (09:32→20:10)
[2023-12-28] MEDS: Escitalopram Oxalate 10 MG Tablet 5 MG PO (09:32)
[2023-12-28] MEDS: Ascorbic Acid 500 MG Tablet 1000 MG PO (09:33)
[2023-12-28] MEDS: Ferrous Sulfate 325 MG Tablet PO (11:59)
[2023-12-28] MEDS: Lisinopril 2.5 MG Tablet PO (20:10)
[2023-12-28] MEDS: Donepezil HCl 5 MG Tablet PO (20:10)
[2023-12-29] MEDS: Levothyroxine 112 MCG Tablet PO (06:41)
[2023-12-29] MEDS: Lidocaine 5% Patch 1 PATCH TOPICAL (06:43)
--- NOTE | 2023-12-29 09:39 | CASEMGMT ---
Addendum entered by Jose F Bland 12/29/23 14:03: SERJIO met with patient and caregiver, Krupa at bedside to provide printed home health care list. SW educated patient and family on home health care services and level of care provided. Original Note: Social Work SW attempted to contact patient's son, Oleksandr to discuss transition of care plans; no answer. SW left a voicemail requesting a return call. SERJIO contacted caregiver, Krupa to discuss care plans. SERJIO was informed by Krupa that the goal is for patient to return home with home health care and 24/hr caregiver support. Patient's caregiver, Krupa anticipates moving in with patient to assist with care. Krupa informed SERJIO that additional support will be provided by neighbor. Patient will be provided printed home health care provider list via careport guide with preferred geographic resource, medical necessity, and insurance network to determine patient choice for home health care. CHELSEY Jacobsen
[2023-12-29] MEDS: traMADol 50 MG Tablet 25 MG PO (10:06)
[2023-12-29] MEDS: Escitalopram Oxalate 10 MG Tablet 5 MG PO (10:07)
[2023-12-29] MEDS: Multivitamins,Ther W-Minerals Tablet 1 TABLET PO (10:08)
[2023-12-29] MEDS: Pantoprazole Sodium 40 MG Tablet PO (10:08)
[2023-12-29] MEDS: APIXABAN 2.5 MG TABLET (WCH) PO ×2 (10:08→21:01)
[2023-12-29] MEDS: Ferrous Sulfate 325 MG Tablet PO (10:08)
[2023-12-29] MEDS: Acetaminophen 500 MG Tablet 1000 MG PO ×3 (10:08→21:07)
[2023-12-29] MEDS: Ascorbic Acid 500 MG Tablet 1000 MG PO (10:09)
[2023-12-29] MEDS: Psyllium 1 PACKET PO (10:10)
[2023-12-29 15:07] VITALS: BP 95/48; PULSE 75; RESP 18; TEMP 35.8; O2SAT 99
[2023-12-29] MEDS: Donepezil HCl 5 MG Tablet PO (21:00)
[2023-12-29] MEDS: Lisinopril 2.5 MG Tablet PO (21:04)
[2023-12-29 22:00] VITALS: BP 105/50; PULSE 69; PULSE 74; O2SAT 94
[2023-12-30] MEDS: Levothyroxine 112 MCG Tablet PO (05:31)
[2023-12-30 05:52] LABS: Absolute Lymphocyte Count 0.94 X10^3/uL (0.83-4.51); Absolute Neutrophil Count 2.6 X10^3/uL (2.0-7.7); Basophil# 0.06 X10^3/uL; Basophil% 1.2 % (0-1); Eosinophils% 10.4 % (0-5); Hematocrit 33.6 % (37-47); Hemoglobin 10.8 g/dL (12.0-15.0); Lymphocyte # 0.94 X10^3/ul (0.83-4.51); Lymphocyte % 19.5 % (19-41); Mean Corp Hgb Conc 32.1 g/dL (32-36); Mean Corpuscular Hgb 30.2 pg (27.0-32.0); Mean Corpuscular Volume 93.9 fL (81-99); Mean Platelet Vol. 11.2 fl (6.2-12.0); Monocyte# 0.67 X10^3/uL; Monocyte% 13.9 % (0-10); NRBC Flagged by Analyzer 0 % (0-5); Neutrophil # 2.61 X10^3/uL (2.7-7.7); Platelet Count 169 K/mm3 (150-450); RBC Distribution Width CV 13.9 % (11.6-14.6); RBC Distribution Width SD 48.1 fl (35.1-43.9); Red Blood Count 3.58 M/mm3 (4.2-5.4); White Blood Count 4.8 K/mm3 (4.4-11.0)
[2023-12-30 06:33] LABS: Anion Gap 4 (5-15); BUN 32 mg/dL (7-18); BUN/Creat Ratio 33.6 RATIO (10-20); Calcium,Total 8.7 mg/dL (8.5-10.1); Chloride 108 mmol/L (98-107); Creatinine, Serum 0.95 mg/dL (0.55-1.02); EST Glomerular Filtration Rate 59 mL/min (>60); Est Glom Filt Rate - Afr Amer 71 mL/min (>60); Estimated Creatinine Clearance 42.09 ml/min; Glucose 89 mg/dL (74-106); Potassium 4.7 mmol/L (3.5-5.1); Sodium Level 137 mmol/L (136-145)
[2023-12-30 08:50] VITALS: BP 103/56; PULSE 68; RESP 16; TEMP 36.9; O2SAT 96
[2023-12-30] MEDS: Multivitamins,Ther W-Minerals Tablet 1 TABLET PO (08:52)
[2023-12-30] MEDS: Lidocaine 5% Patch 1 PATCH TOPICAL (08:52)
[2023-12-30] MEDS: Escitalopram Oxalate 10 MG Tablet 5 MG PO (08:53)
[2023-12-30] MEDS: APIXABAN 2.5 MG TABLET (WCH) PO ×2 (08:53→20:33)
[2023-12-30] MEDS: Pantoprazole Sodium 40 MG Tablet PO (08:53)
[2023-12-30] MEDS: Psyllium 1 PACKET PO (08:53)
[2023-12-30] MEDS: Ascorbic Acid 500 MG Tablet 1000 MG PO (08:54)
[2023-12-30] MEDS: Acetaminophen 500 MG Tablet 1000 MG PO ×3 (08:56→20:32)
[2023-12-30] MEDS: Ferrous Sulfate 325 MG Tablet PO (13:12)
[2023-12-30] MEDS: Donepezil HCl 5 MG Tablet PO (20:33)
[2023-12-30] MEDS: Lisinopril 2.5 MG Tablet PO (20:34)
[2023-12-30 20:37] VITALS: BP 124/54; PULSE 70
[2023-12-30 22:00] VITALS: PULSE 70; O2SAT 96
[2023-12-31 03:42] VITALS: PULSE 70; O2SAT 95
[2023-12-31] MEDS: Levothyroxine 112 MCG Tablet PO (05:19)
[2023-12-31] MEDS: Acetaminophen 500 MG Tablet 1000 MG PO ×3 (10:29→22:12)
[2023-12-31] MEDS: Multivitamins,Ther W-Minerals Tablet 1 TABLET PO (10:30)
[2023-12-31] MEDS: Escitalopram Oxalate 10 MG Tablet 5 MG PO (10:30)
[2023-12-31] MEDS: Lidocaine 5% Patch 1 PATCH TOPICAL (10:31)
[2023-12-31] MEDS: Psyllium 1 PACKET PO (10:31)
[2023-12-31] MEDS: APIXABAN 2.5 MG TABLET (WCH) PO ×2 (10:31→22:13)
[2023-12-31] MEDS: Pantoprazole Sodium 40 MG Tablet PO (10:32)
[2023-12-31] MEDS: Ascorbic Acid 500 MG Tablet 1000 MG PO (10:32)
[2023-12-31] MEDS: Ferrous Sulfate 325 MG Tablet PO (11:48)
[2023-12-31 15:25] VITALS: BP 109/50; PULSE 69; RESP 20; TEMP 36.8; O2SAT 97
[2023-12-31 22:00] VITALS: BP 105/76; PULSE 71
[2023-12-31] MEDS: Donepezil HCl 5 MG Tablet PO (22:13)
[2023-12-31] MEDS: Lisinopril 2.5 MG Tablet PO (22:14)
[2024-01-01] MEDS: Levothyroxine 112 MCG Tablet PO (06:10)
[2024-01-01] MEDS: Lidocaine 5% Patch 1 PATCH TOPICAL (06:10)
[2024-01-01 09:29] VITALS: BP 105/53; PULSE 70; RESP 16; TEMP 36.6; O2SAT 99
[2024-01-01] MEDS: Psyllium 1 PACKET PO (09:33)
[2024-01-01] MEDS: Escitalopram Oxalate 10 MG Tablet 5 MG PO (09:33)
[2024-01-01] MEDS: APIXABAN 2.5 MG TABLET (WCH) PO ×2 (09:33→21:54)
[2024-01-01] MEDS: Multivitamins,Ther W-Minerals Tablet 1 TABLET PO (09:33)
[2024-01-01] MEDS: Acetaminophen 500 MG Tablet 1000 MG PO ×3 (09:33→21:55)
[2024-01-01] MEDS: Pantoprazole Sodium 40 MG Tablet PO (09:34)
[2024-01-01] MEDS: Ascorbic Acid 500 MG Tablet 1000 MG PO (09:34)
[2024-01-01] MEDS: Ferrous Sulfate 325 MG Tablet PO (12:02)
[2024-01-01 21:30] VITALS: BP 116/50; PULSE 70
--- NOTE | 2024-01-01 21:30 | NURSING ---
Resident completed an unassisted transfer. Was sitting in the recliner in her room then upon entering the room, this nurse observed her sitting on the edge of her bed. Resident verbalizes that she is unable to recall how she got to the bed. Room camera activated. Will continue to monitor and consider implementing bed and chair alarms for any additional unassisted transfers.
[2024-01-01] MEDS: Donepezil HCl 5 MG Tablet PO (21:56)
[2024-01-01] MEDS: Lisinopril 2.5 MG Tablet PO (21:56)
[2024-01-02] MEDS: Levothyroxine 112 MCG Tablet PO (05:51)
[2024-01-02] MEDS: Lidocaine 5% Patch 1 PATCH TOPICAL (05:52)
[2024-01-02 07:05] VITALS: BP 146/58; PULSE 71; RESP 16; TEMP 36.2; O2SAT 16
--- NOTE | 2024-01-02 07:45 | NURSING ---
This Nurse and Cira RN called to pt's room by TRANSFER CONTROLLER. Pt found lying on floor beside bed with c/o of pain to the back of head. Large bump noted on right side of head. Pt stated she felt dizzy Vitals taken and stable. Pt A&Ox3 and WNL neuro check. This nurse and two others applied gait belt and with the pt's assist got pt to wheelchair. PT noted to have a skin tear to the left elbow. Skin tear cleansed and applied dressing. Pt stated I think I was trying to go to the bathroom. TRANSFER CONTROLLER in room at time and was assisting pt with ADL's went to open the doors to bathroom to take pt and Pt was noted to be self transferring at the time of incident. Pt assisted to bathroom and noted pain to the right inner thigh. Dr. Ochoa on unit and updated. Received N.O. for CT of head without contrast Xray of the right hip and femur. Neuro Checks entered per policy. supervisor drying and winding notified of incident.
--- NOTE | 2024-01-02 07:50 | RAD_ITS ---
INDICATION: Pain after Fall EXAMINATION/TECHNIQUE: X-RAY - RIGHT XR Femur Min 2 Views 4 VIEWS COMPARISON: November 27, 2023 FINDINGS: SOFT TISSUES: No soft tissue swelling or gas. No radiopaque foreign body. There are vascular calcifications. BONES/JOINTS: There is a stable right total hip arthroplasty in place, grossly anatomic in alignment. There are right superior and inferior pubic rami fractures. There is a total knee arthroplasty in place that is grossly anatomic in alignment. RAD/Femur Min 2 Views IMPRESSION: Right superior and inferior pubic rami fractures. Atherosclerosis. Electronically Signed: Jihan Felder MD at 8:52 EDT ,
--- NOTE | 2024-01-02 07:50 | RAD_ITS ---
INDICATION: Pain after Fall EXAMINATION/TECHNIQUE: X-RAY - XR Pelvis 1 or 2 Views COMPARISON: November 27, 2023 FINDINGS: PELVIC BONES: There are right superior and inferior pubic rami fractures again visualized. No dislocation is visualized. Note that overlapping bowel shadows may however obscure fine detail. Sacroiliac joints are unremarkable. There are degenerative changes of the pubic symphysis. HIPS: There is a stable total right hip arthroplasty in place. There is a left dynamic screw in place that is partially visualized and stable. SOFT TISSUES: No soft tissue swelling or gas. RAD/Pelvis 1 or 2 Views IMPRESSION: Right superior and inferior pubic rami fractures. Electronically Signed: Jihan Felder MD at 8:55 EDT ,
--- NOTE | 2024-01-02 08:12 | NURSING ---
Initial neuro check s/p fall: CN II-XII grossly intact b/l. Reports pain to hematoma to the rt side of the scalp posterior at 8/10- pointing to face scale on the white board. Resident does not describe character of pain. In no acute distress. Denies any visual disturbances. Denies any nausea. EOMs smooth and intact b/l. No nystagmus or strabismus. Facial symmetry noted. Strength to LUE 4/5. NWB to RUE d/t fx. Strength to BLE 4-5/5. Denies any numbness or tingling. Speech is clear throughout conversation. Will continue to monitor.
[2024-01-02 08:58] LABS: Bedside Glucose 106 mg/dL (74-106)
[2024-01-02] MEDS: Ascorbic Acid 500 MG Tablet 1000 MG PO (09:10)
[2024-01-02] MEDS: Acetaminophen 500 MG Tablet 1000 MG PO ×3 (09:11→20:28)
[2024-01-02] MEDS: Escitalopram Oxalate 10 MG Tablet 5 MG PO (09:11)
[2024-01-02] MEDS: Multivitamins,Ther W-Minerals Tablet 1 TABLET PO (09:11)
[2024-01-02] MEDS: Pantoprazole Sodium 40 MG Tablet PO (09:11)
[2024-01-02] MEDS: Psyllium 1 PACKET PO (09:11)
--- NOTE | 2024-01-02 09:58 | CASEMGMT ---
Addendum entered by Jose F Bland 01/02/24 11:38: Patient had a fall on unit due to attempt to transfer without assistance 01/02/2024 at 919. Nursing staff notified SERJIO. Therapy assessing for patient needs. Original Note: Social Work SW received a call from son, Oleksandr Quinn to discuss discharge plans and recommendations. SERJIO inquired about home care plans for caregiver to move in home with patient. Oleksandr confirmed that tentative transition of care plans is for patient to discharge home with the caregiver to reside in home with patient for 24/hrs. Oleksandr informed SERJIO that he is concerned about sending his mother home with caregiver due to caregiver having another job and utilizing 90yr old neighbor as secondary supervision support. Patient's son informed SERJIO that he will discuss alternative in home supervision for patient. SERJIO educated Oleksandr on the patient's Medicare coverage and benefits. Patient is nearing 21th day. Patient son is aware that the patient may transition into co-pay days. SERJIO informed Oleksandr that transition of care plans and discharge date needs to be identified by family. Patient's son, Oleksandr will discuss plans and concerns with other sibling to determine appropriate level of care. Patient choice is required for home health care services. Discharge: Home with home health care services PT/OT/ST. CHLESEY Jacobsen
[2024-01-02 10:56] VITALS: BP 111/50; PULSE 70; RESP 18; TEMP 36.3; O2SAT 96
[2024-01-02] MEDS: Ferrous Sulfate 325 MG Tablet PO (12:18)
--- NOTE | 2024-01-02 14:40 | NURSING ---
Pt returned from appt with Dr. Elba Broussard received for WBAT to [facility].
[2024-01-02] MEDS: Donepezil HCl 5 MG Tablet PO (20:28)
[2024-01-02] MEDS: Lisinopril 2.5 MG Tablet PO (20:28)
[2024-01-02 20:30] VITALS: BP 118/52; PULSE 69
[2024-01-03] MEDS: Lidocaine 5% Patch 1 PATCH TOPICAL (06:59)
[2024-01-03] MEDS: Levothyroxine 112 MCG Tablet PO (07:00)
[2024-01-03] MEDS: Multivitamins,Ther W-Minerals Tablet 1 TABLET PO (07:56)
[2024-01-03] MEDS: Psyllium 1 PACKET PO (07:56)
[2024-01-03] MEDS: Escitalopram Oxalate 10 MG Tablet 5 MG PO (07:56)
[2024-01-03] MEDS: Ascorbic Acid 500 MG Tablet 1000 MG PO (07:56)
[2024-01-03] MEDS: Pantoprazole Sodium 40 MG Tablet PO (07:56)
[2024-01-03] MEDS: Acetaminophen 500 MG Tablet 1000 MG PO ×2 (07:57→20:18)
[2024-01-03 09:15] VITALS: BP 116/54; PULSE 84; RESP 16; TEMP 37.4; O2SAT 98
[2024-01-03] MEDS: traMADol 50 MG Tablet 25 MG PO (09:28)
[2024-01-03] MEDS: Meclizine HCl 25 MG Tablet PO (09:28)
--- NOTE | 2024-01-03 09:54 | NURSING ---
Addendum entered by Elsi Calderon 01/03/24 10:01: ALSO, NOTIFIED R' CAREGIVER JOSSUE OLIVEIRA AT THIS TIME. Original Note: DR SHEN AWARE OF RIB FRACTURES NOTED ON XRAYS YESTERDAY. NO N.O. R' ALSO NOTIFIED.
[2024-01-03 10:18] VITALS: BMI 23.3
[2024-01-03] MEDS: Ferrous Sulfate 325 MG Tablet PO (11:48)
--- NOTE | 2024-01-03 12:39 | NURSING ---
CALLED DR SHEN REGARDING R' FEELING INCREASED DIZZINESS AND NAUSEA. N.O. CT OF HEAD NO CONTRAST AND ZOFRAN PRN.
[2024-01-03 13:01] VITALS: BP 108/54; PULSE 72; RESP 18; O2SAT 98
[2024-01-03 13:08] VITALS: BP 117/49; PULSE 69; RESP 18; TEMP 36.3; O2SAT 99
[2024-01-03] MEDS: Ondansetron ODT 4 MG Tablet 8 MG PO (13:08)
--- NOTE | 2024-01-03 15:08 | NURSING ---
Addendum entered by Bird Hickey 01/03/24 17:01: Pt. returned to floor Dr. Ochoa notified. Original Note: Dr. Ochoa notified of results of CT scan N.O. to send pt to E.R. Report called to Elida RUIZ.
[2024-01-03] MEDS: Lisinopril 2.5 MG Tablet PO (20:18)
[2024-01-03] MEDS: Donepezil HCl 5 MG Tablet PO (20:18)
[2024-01-04] MEDS: Levothyroxine 112 MCG Tablet PO (05:45)
[2024-01-04] MEDS: Lidocaine 5% Patch 1 PATCH TOPICAL (05:45)
[2024-01-04] MEDS: Ondansetron ODT 4 MG Tablet 8 MG PO (08:16)
[2024-01-04 08:20] VITALS: BP 128/52; PULSE 70; RESP 16; TEMP 36.8; O2SAT 98
[2024-01-04] MEDS: Multivitamins,Ther W-Minerals Tablet 1 TABLET PO (09:43)
[2024-01-04] MEDS: Escitalopram Oxalate 10 MG Tablet 5 MG PO (09:43)
[2024-01-04] MEDS: Acetaminophen 500 MG Tablet 1000 MG PO ×3 (09:43→21:37)
[2024-01-04] MEDS: Ascorbic Acid 500 MG Tablet 1000 MG PO (09:44)
[2024-01-04] MEDS: Psyllium 1 PACKET PO (09:44)
[2024-01-04] MEDS: Pantoprazole Sodium 40 MG Tablet PO (09:44)
[2024-01-04] MEDS: Ferrous Sulfate 325 MG Tablet PO (11:57)
[2024-01-04 14:06] VITALS: BP 110/45; PULSE 70; RESP 16; TEMP 36.2; O2SAT 97
[2024-01-04] MEDS: Donepezil HCl 5 MG Tablet PO (21:37)
[2024-01-04] MEDS: Lisinopril 2.5 MG Tablet PO (21:37)
[2024-01-04 22:00] VITALS: BP 103/42; PULSE 70; RESP 16; TEMP 36.6; O2SAT 96
[2024-01-05 02:00] VITALS: BP 140/55; PULSE 65; RESP 14; TEMP 36.6; O2SAT 95
[2024-01-05] MEDS: Levothyroxine 112 MCG Tablet PO (05:24)
[2024-01-05 06:06] VITALS: BP 111/48; PULSE 69; RESP 12; TEMP 36.2; O2SAT 94
[2024-01-05] MEDS: Ascorbic Acid 500 MG Tablet 1000 MG PO (08:46)
[2024-01-05] MEDS: Lidocaine 5% Patch 1 PATCH TOPICAL (08:46)
[2024-01-05] MEDS: Psyllium 1 PACKET PO (08:46)
[2024-01-05] MEDS: Acetaminophen 500 MG Tablet 1000 MG PO ×3 (08:47→22:11)
[2024-01-05] MEDS: Multivitamins,Ther W-Minerals Tablet 1 TABLET PO (08:47)
[2024-01-05] MEDS: Escitalopram Oxalate 10 MG Tablet 5 MG PO (08:47)
[2024-01-05] MEDS: Pantoprazole Sodium 40 MG Tablet PO (08:47)
[2024-01-05] MEDS: Ferrous Sulfate 325 MG Tablet PO (13:15)
[2024-01-05 15:39] VITALS: BP 103/45; PULSE 70; RESP 14; TEMP 36.7; O2SAT 96
[2024-01-05] MEDS: Lisinopril 2.5 MG Tablet PO (22:12)
[2024-01-05] MEDS: Donepezil HCl 5 MG Tablet PO (22:12)
[2024-01-06] MEDS: Lidocaine 5% Patch 1 PATCH TOPICAL (05:46)
[2024-01-06] MEDS: Levothyroxine 112 MCG Tablet PO (05:46)
[2024-01-06 06:03] LABS: Absolute Lymphocyte Count 1.21 X10^3/uL (0.83-4.51); Absolute Neutrophil Count 4.1 X10^3/uL (2.0-7.7); Basophil# 0.08 X10^3/uL; Basophil% 1.2 % (0-1); Eosinophils% 6.1 % (0-5); Hematocrit 32.8 % (37-47); Hemoglobin 10.3 g/dL (12.0-15.0); Lymphocyte # 1.21 X10^3/ul (0.83-4.51); Lymphocyte % 18.4 % (19-41); Mean Corp Hgb Conc 31.4 g/dL (32-36); Mean Corpuscular Hgb 29.9 pg (27.0-32.0); Mean Corpuscular Volume 95.1 fL (81-99); Mean Platelet Vol. 10.8 fl (6.2-12.0); Monocyte# 0.73 X10^3/uL; Monocyte% 11.1 % (0-10); NRBC Flagged by Analyzer 0 % (0-5); Neutrophil % 62.3 % (47-70); Platelet Count 170 K/mm3 (150-450); RBC Distribution Width SD 48.4 fl (35.1-43.9); Red Blood Count 3.45 M/mm3 (4.2-5.4); White Blood Count 6.6 K/mm3 (4.4-11.0)
[2024-01-06 06:28] LABS: Anion Gap 2 (5-15); BUN 34 mg/dL (7-18); BUN/Creat Ratio 34.7 RATIO (10-20); Calcium,Total 8.9 mg/dL (8.5-10.1); Chloride 108 mmol/L (98-107); Creatinine, Serum 0.98 mg/dL (0.55-1.02); EST Glomerular Filtration Rate 57 mL/min (>60); Est Glom Filt Rate - Afr Amer 69 mL/min (>60); Glucose 93 mg/dL (74-106); Potassium 4.9 mmol/L (3.5-5.1); Sodium Level 138 mmol/L (136-145)
[2024-01-06] MEDS: Multivitamins,Ther W-Minerals Tablet 1 TABLET PO (08:28)
[2024-01-06] MEDS: Acetaminophen 500 MG Tablet 1000 MG PO ×3 (08:28→20:46)
[2024-01-06] MEDS: Escitalopram Oxalate 10 MG Tablet 5 MG PO (08:28)
[2024-01-06] MEDS: Psyllium 1 PACKET PO (08:28)
[2024-01-06] MEDS: Ascorbic Acid 500 MG Tablet 1000 MG PO (08:29)
[2024-01-06] MEDS: Pantoprazole Sodium 40 MG Tablet PO (08:29)
[2024-01-06] MEDS: Pneumococcal Vaccine 20 Valent 0.5 ML Syringe IM (11:42)
[2024-01-06] MEDS: Ferrous Sulfate 325 MG Tablet PO (11:46)
[2024-01-06 16:00] VITALS: BP 102/50; PULSE 70; RESP 16; TEMP 36.7; O2SAT 99
[2024-01-06] MEDS: Lisinopril 2.5 MG Tablet PO (20:46)
[2024-01-06] MEDS: Donepezil HCl 5 MG Tablet PO (20:46)
[2024-01-06 20:56] VITALS: PULSE 70; RESP 16; O2SAT 95
[2024-01-07] MEDS: Levothyroxine 112 MCG Tablet PO (05:35)
[2024-01-07 05:38] VITALS: RESP 16; O2SAT 98
[2024-01-07] MEDS: Lidocaine 5% Patch 1 PATCH TOPICAL (08:38)
[2024-01-07] MEDS: Acetaminophen 500 MG Tablet 1000 MG PO ×3 (08:40→20:49)
[2024-01-07] MEDS: Multivitamins,Ther W-Minerals Tablet 1 TABLET PO (08:40)
[2024-01-07] MEDS: Ascorbic Acid 500 MG Tablet 1000 MG PO (08:41)
[2024-01-07] MEDS: Escitalopram Oxalate 10 MG Tablet 5 MG PO (08:41)
[2024-01-07] MEDS: Pantoprazole Sodium 40 MG Tablet PO (08:41)
[2024-01-07] MEDS: Psyllium 1 PACKET PO (08:41)
[2024-01-07] MEDS: Ferrous Sulfate 325 MG Tablet PO (12:00)
[2024-01-07 16:00] VITALS: BP 99/52; PULSE 70; RESP 12; TEMP 36.7; O2SAT 98
[2024-01-07] MEDS: Lisinopril 2.5 MG Tablet PO (20:49)
[2024-01-07] MEDS: Donepezil HCl 5 MG Tablet PO (20:49)
[2024-01-08] MEDS: Levothyroxine 112 MCG Tablet PO (05:22)
[2024-01-08] MEDS: Lidocaine 5% Patch 1 PATCH TOPICAL (05:22)
[2024-01-08 07:54] VITALS: BP 134/55; PULSE 69; RESP 16; TEMP 36.3; O2SAT 96
[2024-01-08] MEDS: Ascorbic Acid 500 MG Tablet 1000 MG PO (07:57)
[2024-01-08] MEDS: Pantoprazole Sodium 40 MG Tablet PO (07:57)
[2024-01-08] MEDS: Escitalopram Oxalate 10 MG Tablet 5 MG PO (07:57)
[2024-01-08] MEDS: Multivitamins,Ther W-Minerals Tablet 1 TABLET PO (07:57)
[2024-01-08] MEDS: Acetaminophen 500 MG Tablet 1000 MG PO ×3 (07:57→20:41)
[2024-01-08] MEDS: Psyllium 1 PACKET PO (07:58)
[2024-01-08] MEDS: Ferrous Sulfate 325 MG Tablet PO (12:19)
[2024-01-08] MEDS: Lisinopril 2.5 MG Tablet PO (20:42)
[2024-01-08] MEDS: Donepezil HCl 5 MG Tablet PO (20:42)
[2024-01-08 20:44] VITALS: BP 111/49; PULSE 71
[2024-01-09] MEDS: Lidocaine 5% Patch 1 PATCH TOPICAL (05:30)
[2024-01-09] MEDS: Levothyroxine 112 MCG Tablet PO (05:30)
[2024-01-09] MEDS: Acetaminophen 500 MG Tablet 1000 MG PO ×3 (08:06→21:46)
[2024-01-09] MEDS: Multivitamins,Ther W-Minerals Tablet 1 TABLET PO (08:06)
[2024-01-09] MEDS: Escitalopram Oxalate 10 MG Tablet 5 MG PO (08:07)
[2024-01-09] MEDS: Psyllium 1 PACKET PO (08:07)
[2024-01-09] MEDS: Ascorbic Acid 500 MG Tablet 1000 MG PO (08:07)
[2024-01-09] MEDS: Pantoprazole Sodium 40 MG Tablet PO (08:07)
[2024-01-09] MEDS: Ferrous Sulfate 325 MG Tablet PO (12:31)
[2024-01-09 16:00] VITALS: BP 107/49; PULSE 67; RESP 14; TEMP 36.7; O2SAT 97
--- NOTE | 2024-01-09 17:20 | PN.TCU_ITS ---
Subjective Subjective Resident seen, examined for regulatory visit. 01/02/2024 Resident fell, closed head injury, CT head okay, X-ray showed left 3rd, 4th rib fractures. 01/03/2024 Resident had dizziness, CT head shows left medial temporal cortex hemorrhagic contusion, resident transferred to [facility] ED, but declined transfer to tertiary care center. Hold [place] for 30 days. She is sitting in recliner, watching TV, she has no new complaints, little bit of dizziness, but not severe. Objective Data Objective Data Vital Signs: Vital Signs Temp Pulse Resp BP Pulse Ox O2 Del Method 98.1 F 67 14 107/49 L 97 Room Air 01/09/24 16:00 01/09/24 16:00 01/09/24 16:00 01/09/24 16:00 01/09/24 16:00 01/09/24 16:00 Oxygen Delivery Method Room Air Weight: 69.672 kg Body Mass Index (BMI) 23.3 Intake & Output: Intake and Output for Last 24 Hours 01/07/24 01/08/24 01/09/24 23:59 23:59 23:59 Intake Total 700 / 700 1080 / 1080 900 / 900 Balance 700 / 700 1080 / 1080 900 / 900 Lab / Micro Data 01/06/24 05:31 01/06/24 05:31 Physical Exam Const alert General Appearance: cooperative HEENT normocephalic Eyes PERRL and EOMs intact bilaterally Neck supple, no JVD and no carotid bruits Resp normal respiratory effort, normal air movement and clear to auscultation bilaterally Cardio regular rate and regular rhythm GI normal to inspection, nondistended, normoactive bowel sounds, non-tender and non-distended Extremity normal capillary refill General Extremity: Negative for edema Skin no rashes or lesions noted General Skin Exam: no breakdown Psych affect normal Appearance: appropriate Assessment & Plan Assessment/Plan (1) Debility: (2) Pelvis fracture, right: (3) Right clavicle fracture: (4) Urinary tract infection: (5) Iron deficiency anemia: (6) Hypothyroidism: QUALIFIERS: Hypothyroidism type: unspecified Qualified Code(s): E03.9 - Hypothyroidism, unspecified (7) Depression: (8) Anxiety: (9) Osteoarthritis: (10) Asthma: (11) Atrial fibrillation: (12) Complete heart block: (13) Alzheimer disease: (14) Essential (primary) hypertension: (15) Microscopic colitis: (16) Rheumatoid arthritis: PLAN: Plan 88 year old female with below past medical history hospitalized for right pelvis fracture, nondisplaced right clavicle fracture, admitted to , complicated by UTI, iron deficiency anemia, transferred to TCU with debility, here for rehabilitation, strengthening, prior to discharge home alone. * Debility - PT/OT. * Cognition - ST. * Pain - Tylenol 1000mg tid, Tramadol 25mg q8 prn, Lidoderm patch td daily. * Bowel - senna/colace 1 tablet bid prn, Metamucil 1 packet daily, Dulcolax 10mg pr daily prn, MOM 30ml po x 1 prn, Fleet enema 133ml pr daily prn. * Adult immunization - Administer pneumonia vaccine, covid vaccine, flu vaccine as appropriate. * DVT prophylaxis - on Eliquis. * Atrial fibrillation - Eliquis 2.5mg bid. * Iron deficiency anemia - Vitamin C 1000mg daily, Ferrous sulfate 325mg daily. * Alzheimer Disease - Donepezil 5mg qhs. 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 * Hypothyroidism - Levothyroxine 112mcg daily. * Hypertension - Lisinopril 2.5mg qhs. * Nutrition - MVI 1 tablet daily. * GERD - Pantoprazole 40mg daily. * Dizziness - Meclizine 25mg bid prn. * Nausea - Zofran 8mg q8h prn.
[2024-01-09] MEDS: Lisinopril 2.5 MG Tablet PO (21:47)
[2024-01-09] MEDS: Donepezil HCl 5 MG Tablet PO (21:47)
[2024-01-09 21:48] VITALS: BP 111/51; PULSE 69
[2024-01-10] MEDS: Levothyroxine 112 MCG Tablet PO (06:29)
[2024-01-10] MEDS: Lidocaine 5% Patch 1 PATCH TOPICAL (06:29)
[2024-01-10] MEDS: Psyllium 1 PACKET PO (07:47)
[2024-01-10] MEDS: Acetaminophen 500 MG Tablet 1000 MG PO ×3 (07:47→20:38)
[2024-01-10] MEDS: Escitalopram Oxalate 10 MG Tablet 5 MG PO (07:48)
[2024-01-10] MEDS: Multivitamins,Ther W-Minerals Tablet 1 TABLET PO (07:48)
[2024-01-10] MEDS: Pantoprazole Sodium 40 MG Tablet PO (07:48)
[2024-01-10] MEDS: Ascorbic Acid 500 MG Tablet 1000 MG PO (07:49)
[2024-01-10 09:17] VITALS: BMI 23.3
[2024-01-10] MEDS: Ferrous Sulfate 325 MG Tablet PO (11:40)
[2024-01-10 14:50] VITALS: BP 98/53; PULSE 70; RESP 14; TEMP 36.8; O2SAT 94
[2024-01-10] MEDS: Donepezil HCl 5 MG Tablet PO (20:37)
[2024-01-10] MEDS: Lisinopril 2.5 MG Tablet PO (20:38)
[2024-01-11] MEDS: Levothyroxine 112 MCG Tablet PO (04:44)
[2024-01-11] MEDS: Lidocaine 5% Patch 1 PATCH TOPICAL (04:44)
[2024-01-11] MEDS: Pantoprazole Sodium 40 MG Tablet PO (09:17)
[2024-01-11] MEDS: Acetaminophen 500 MG Tablet 1000 MG PO ×3 (09:17→20:18)
[2024-01-11] MEDS: Ascorbic Acid 500 MG Tablet 1000 MG PO (09:17)
[2024-01-11] MEDS: Psyllium 1 PACKET PO (09:17)
[2024-01-11] MEDS: Escitalopram Oxalate 10 MG Tablet 5 MG PO (09:17)
[2024-01-11] MEDS: Multivitamins,Ther W-Minerals Tablet 1 TABLET PO (09:18)
[2024-01-11] MEDS: Ferrous Sulfate 325 MG Tablet PO (12:31)
[2024-01-11 13:41] VITALS: BP 103/44; PULSE 70; RESP 16; TEMP 36.6; O2SAT 96
[2024-01-11] MEDS: Lisinopril 2.5 MG Tablet PO (20:18)
[2024-01-11] MEDS: Donepezil HCl 5 MG Tablet PO (20:18)
[2024-01-11 20:25] VITALS: BP 98/50; PULSE 69
[2024-01-12] MEDS: Lidocaine 5% Patch 1 PATCH TOPICAL (05:26)
[2024-01-12] MEDS: Levothyroxine 112 MCG Tablet PO (05:26)
[2024-01-12] MEDS: Escitalopram Oxalate 10 MG Tablet 5 MG PO (09:38)
[2024-01-12] MEDS: Pantoprazole Sodium 40 MG Tablet PO (09:40)
[2024-01-12] MEDS: Ascorbic Acid 500 MG Tablet 1000 MG PO (09:40)
[2024-01-12] MEDS: Acetaminophen 500 MG Tablet 1000 MG PO ×3 (09:40→21:05)
[2024-01-12] MEDS: Multivitamins,Ther W-Minerals Tablet 1 TABLET PO (09:40)
[2024-01-12] MEDS: Psyllium 1 PACKET PO (09:40)
--- NOTE | 2024-01-12 10:14 | CASEMGMT ---
Social Work SERJIO contacted patient's son, Phill to discuss discharge plans. Phill informed SERJIO that he is currently in town arranging things. SERJIO informed Phill that the patient has improved with therapy; recommendations for discharge next week. Phill informed SERJIO that current plans for patient is to return home with caregiver, Krupa. Phill informed SERJIO that he will contact [facility] to discuss discharge for potential date of 01/16. SERJIO informed Phill that home health care provider list was provided to caregiver, Krupa previously; choice is required for [facility]. Phill informed SERJIO that he consents to SW arranging care with caregiver, Krupa. Phill will follow up with SERJIO to confirm discharge date. CHELSEY Jacobsen
[2024-01-12] MEDS: Ferrous Sulfate 325 MG Tablet PO (12:10)
[2024-01-12 15:21] VITALS: BP 113/47; PULSE 70; RESP 12; TEMP 36.6; O2SAT 97
[2024-01-12] MEDS: Lisinopril 2.5 MG Tablet PO (21:05)
[2024-01-12] MEDS: Donepezil HCl 5 MG Tablet PO (21:05)
[2024-01-13] MEDS: Lidocaine 5% Patch 1 PATCH TOPICAL (05:47)
[2024-01-13] MEDS: Levothyroxine 112 MCG Tablet PO (05:47)
[2024-01-13 06:17] LABS: Absolute Lymphocyte Count 0.89 X10^3/uL (0.83-4.51); Absolute Neutrophil Count 2.5 X10^3/uL (2.0-7.7); Basophil# 0.06 X10^3/uL; Basophil% 1.3 % (0-1); Eosinophil# 0.43 X10^3/uL; Eosinophils% 9.6 % (0-5); Hemoglobin 10.2 g/dL (12.0-15.0); Lymphocyte # 0.89 X10^3/ul (0.83-4.51); Lymphocyte % 19.9 % (19-41); Mean Corp Hgb Conc 31.9 g/dL (32-36); Mean Corpuscular Hgb 30.6 pg (27.0-32.0); Mean Corpuscular Volume 96.1 fL (81-99); Mean Platelet Vol. 10.8 fl (6.2-12.0); Monocyte# 0.54 X10^3/uL; Monocyte% 12.1 % (0-10); NRBC Flagged by Analyzer 0 % (0-5); Neutrophil # 2.53 X10^3/uL (2.7-7.7); Neutrophil % 56.7 % (47-70); Platelet Count 158 K/mm3 (150-450); RBC Distribution Width CV 14.4 % (11.6-14.6); RBC Distribution Width SD 51.3 fl (35.1-43.9); Red Blood Count 3.33 M/mm3 (4.2-5.4); White Blood Count 4.5 K/mm3 (4.4-11.0)
[2024-01-13 06:37] LABS: Anion Gap 3 (5-15); BUN 31 mg/dL (7-18); BUN/Creat Ratio 40.6 RATIO (10-20); Calcium,Total 8.9 mg/dL (8.5-10.1); Chloride 113 mmol/L (98-107); Creatinine, Serum 0.76 mg/dL (0.55-1.02); EST Glomerular Filtration Rate 76 mL/min (>60); Est Glom Filt Rate - Afr Amer 92 mL/min (>60); Estimated Creatinine Clearance 49.98 ml/min; Glucose 94 mg/dL (74-106); Potassium 4.2 mmol/L (3.5-5.1); Sodium Level 141 mmol/L (136-145)
[2024-01-13] MEDS: Multivitamins,Ther W-Minerals Tablet 1 TABLET PO (08:19)
[2024-01-13] MEDS: Escitalopram Oxalate 10 MG Tablet 5 MG PO (08:19)
[2024-01-13] MEDS: Acetaminophen 500 MG Tablet 1000 MG PO ×3 (08:19→20:47)
[2024-01-13] MEDS: Pantoprazole Sodium 40 MG Tablet PO (08:20)
[2024-01-13] MEDS: Ascorbic Acid 500 MG Tablet 1000 MG PO (08:20)
[2024-01-13] MEDS: Psyllium 1 PACKET PO (08:20)
[2024-01-13] MEDS: Ferrous Sulfate 325 MG Tablet PO (11:14)
[2024-01-13] MEDS: Donepezil HCl 5 MG Tablet PO (20:47)
[2024-01-13 20:49] VITALS: BP 114/40; PULSE 69
[2024-01-13] MEDS: Lisinopril 2.5 MG Tablet PO (20:49)
[2024-01-13 23:55] VITALS: O2SAT 97
[2024-01-14] MEDS: Levothyroxine 112 MCG Tablet PO (05:59)
[2024-01-14] MEDS: Lidocaine 5% Patch 1 PATCH TOPICAL (05:59)
[2024-01-14] MEDS: Multivitamins,Ther W-Minerals Tablet 1 TABLET PO (09:22)
[2024-01-14] MEDS: Ascorbic Acid 500 MG Tablet 1000 MG PO (09:22)
[2024-01-14] MEDS: Escitalopram Oxalate 10 MG Tablet 5 MG PO (09:23)
[2024-01-14] MEDS: Acetaminophen 500 MG Tablet 1000 MG PO ×3 (09:23→21:54)
[2024-01-14] MEDS: Pantoprazole Sodium 40 MG Tablet PO (09:24)
[2024-01-14] MEDS: Psyllium 1 PACKET PO (09:24)
[2024-01-14] MEDS: Ferrous Sulfate 325 MG Tablet PO (12:23)
[2024-01-14 13:43] VITALS: BP 116/55; PULSE 69; RESP 18; TEMP 36.3; O2SAT 99
[2024-01-14 21:30] VITALS: BP 111/46; PULSE 74; O2SAT 97
[2024-01-14] MEDS: Lisinopril 2.5 MG Tablet PO (21:54)
[2024-01-14] MEDS: Donepezil HCl 5 MG Tablet PO (21:54)
[2024-01-15] MEDS: Levothyroxine 112 MCG Tablet PO (05:50)
[2024-01-15] MEDS: Lidocaine 5% Patch 1 PATCH TOPICAL (05:51)
[2024-01-15 06:20] VITALS: O2SAT 95
--- NOTE | 2024-01-15 07:58 | NURSING ---
Lungs sounds reassessed after several minutes after using IS. Expiratory wheezes to b/l upper lungs zarco and left base posterior remain present but improved. Expiratory wheeze to the rt base is more pronounced. In no acute distress. Resident experiences difficulty answering questions related to symptom management at time. Will continue to monitor.
[2024-01-15] MEDS: Ascorbic Acid 500 MG Tablet 1000 MG PO (09:12)
[2024-01-15] MEDS: Acetaminophen 500 MG Tablet 1000 MG PO ×3 (09:12→20:53)
[2024-01-15] MEDS: Escitalopram Oxalate 10 MG Tablet 5 MG PO (09:12)
[2024-01-15] MEDS: Multivitamins,Ther W-Minerals Tablet 1 TABLET PO (09:12)
[2024-01-15] MEDS: Pantoprazole Sodium 40 MG Tablet PO (09:12)
[2024-01-15] MEDS: Psyllium 1 PACKET PO (09:12)
[2024-01-15] MEDS: Ferrous Sulfate 325 MG Tablet PO (11:06)
[2024-01-15 15:22] VITALS: BP 132/59; PULSE 70; RESP 18; TEMP 36.6; O2SAT 97
[2024-01-15 20:45] VITALS: BP 117/52; PULSE 70
[2024-01-15] MEDS: Donepezil HCl 5 MG Tablet PO (20:53)
[2024-01-15] MEDS: Lisinopril 2.5 MG Tablet PO (20:54)
[2024-01-16] MEDS: Lidocaine 5% Patch 1 PATCH TOPICAL (06:14)
[2024-01-16] MEDS: Levothyroxine 112 MCG Tablet PO (06:14)
[2024-01-16] MEDS: Pantoprazole Sodium 40 MG Tablet PO (09:15)
[2024-01-16] MEDS: Multivitamins,Ther W-Minerals Tablet 1 TABLET PO (09:15)
[2024-01-16] MEDS: Psyllium 1 PACKET PO (09:15)
[2024-01-16] MEDS: Escitalopram Oxalate 10 MG Tablet 5 MG PO (09:15)
[2024-01-16] MEDS: Acetaminophen 500 MG Tablet 1000 MG PO ×3 (09:15→20:45)
[2024-01-16] MEDS: Ascorbic Acid 500 MG Tablet 1000 MG PO (09:15)
[2024-01-16] MEDS: Ferrous Sulfate 325 MG Tablet PO (11:54)
[2024-01-16 14:46] VITALS: BP 114/55; PULSE 69; RESP 16; TEMP 36.4; O2SAT 98
--- NOTE | 2024-01-16 16:27 | CASEMGMT ---
Social Work SERJIO met with pt's caregiver Krupa and discussed discharge. Krupa is agreeable to dc on 01/18 and will be providing 24 hour care for pt. Team is recommending home health PT/OT/aid. [facility] states preferred provider is [facility]. Referral made, SERJIO awaiting determination of acceptance. SERJIO placed call to pt's son Phill and VELIA left requesting return call to confirm discharge plan. Pt's caregiver Krupa will provide transportation home. Plan: Home on 01/19/24 with 24 hour caregivers and [facility] PT/OT/Aide CAROLINA Doyle
[2024-01-16 19:45] VITALS: O2SAT 95
--- NOTE | 2024-01-16 19:51 | PCM.DC.SUM ---
Providers Date of Admission: 12/15/23 Primary Care Physician: Dr. Elizabeth Cai MD Reason For Visit: PELVIC FRACTURE Diagnosis Discharge Diagnosis (1) Debility: Status: Acute Code(s): R53.81 - Other malaise (2) Pelvis fracture, right: Status: Acute Code(s): S32.9XXA - Fracture of unspecified parts of lumbosacral spine and pelvis, initial encounter for closed fracture (3) Right clavicle fracture: Status: Acute Code(s): S42.001A - Fracture of unspecified part of right clavicle, initial encounter for closed fracture (4) Urinary tract infection: Status: Acute Code(s): N39.0 - Urinary tract infection, site not specified (5) Iron deficiency anemia: Status: Acute Code(s): D50.9 - Iron deficiency anemia, unspecified (6) Hypothyroidism: Status: Acute Code(s): E03.9 - Hypothyroidism, unspecified Qualifiers: Hypothyroidism type: unspecified Qualified Code(s): E03.9 - Hypothyroidism, unspecified (7) Depression: Status: Acute Code(s): F32.A - Depression, unspecified (8) Anxiety: Status: Acute Code(s): F41.9 - Anxiety disorder, unspecified (9) Osteoarthritis: Status: Acute Code(s): M19.90 - Unspecified osteoarthritis, unspecified site (10) Asthma: Status: Acute Code(s): J45.909 - Unspecified asthma, uncomplicated (11) Atrial fibrillation: Status: Acute Code(s): I48.91 - Unspecified atrial fibrillation (12) Complete heart block: Status: Acute Code(s): I44.2 - Atrioventricular block, complete (13) Alzheimer disease: Status: Acute Code(s): G30.9 - Alzheimer's disease, unspecified; F02.80 - Dementia in other diseases classified elsewhere, unspecified severity, without behavioral disturbance, psychotic disturbance, mood disturbance, and anxiety (14) Essential (primary) hypertension: Status: Acute Code(s): I10 - Essential (primary) hypertension (15) Microscopic colitis: Status: Acute Code(s): K52.839 - Microscopic colitis, unspecified (16) Rheumatoid arthritis: Status: Acute Code(s): M06.9 - Rheumatoid arthritis, unspecified Plan 88 year old female with below past medical history hospitalized for right pelvis fracture, nondisplaced right clavicle fracture, admitted to , complicated by UTI, iron deficiency anemia, transferred to TCU with debility, here for rehabilitation, strengthening, prior to discharge home alone. Debility - PT/OT. Cognition - ST. Pain - Tylenol 1000mg tid, Tramadol 25mg q8 prn, Lidoderm patch td daily. Bowel - senna/colace 1 tablet bid prn, Metamucil 1 packet daily, Dulcolax 10mg pr daily prn, MOM 30ml po x 1 prn, Fleet enema 133ml pr daily prn. Adult immunization - Administer pneumonia vaccine, covid vaccine, flu vaccine as appropriate. DVT prophylaxis - on Eliquis. Atrial fibrillation - Eliquis 2.5mg bid. Iron deficiency anemia - Vitamin C 1000mg daily, Ferrous sulfate 325mg daily. Alzheimer Disease - Donepezil 5mg qhs. 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 Hypothyroidism - Levothyroxine 112mcg daily. Hypertension - Lisinopril 2.5mg qhs. Nutrition - MVI 1 tablet daily. GERD - Pantoprazole 40mg daily. Dizziness - Meclizine 25mg bid prn. Nausea - Zofran 8mg q8h prn. Medications at Discharge Home Medications mhttplsg-mii-FI 0.4 mg-calcium 162 mg-iron 18 zo-shdjasn-tgqnji tablet 1 ea PO DAILY supplement 06/03/19 donepezil 5 mg tablet 5 mg PO QHS memory #90 tabs 04/07/23 escitalopram oxalate 5 mg tablet 5 mg PO DAILY anxiety #90 tabs 07/18/23 levothyroxine 112 mcg tablet 112 mcg PO DAILY thyroid 11/09/23 acetaminophen 500 mg tablet 1,000 mg (2 x 500 mg) PO 0900,1500,2000 pain 1-10 #1 TAB 12/15/23 ascorbic acid (vitamin C) 1,000 mg tablet (Vitamin C) 1 g PO DAILY supplement #1 TAB 12/15/23 lidocaine 5 % topical patch 1 patch topical 0700 30 days #30 ea 01/16/24 lisinopril 2.5 mg tablet 2.5 mg PO QHS 30 days #30 tabs 01/16/24 pantoprazole 40 mg tablet,delayed release 40 mg PO DAILY 30 days #30 tabs 01/16/24 Hospital Course Operations None Procedures None Summary of Care Provided Minutes Spent on Discharge: 35 Hospital Course: 88 year old female with below past medical history hospitalized for right pelvis fracture, nondisplaced right clavicle fracture, admitted to , complicated by UTI, iron deficiency anemia, transferred to TCU with debility, here for rehabilitation, strengthening, prior to discharge home alone. 01/03/2024 Resident suffered fall with closed head injury, CT head showed intracranial hemorrhage, she declined referral to tertiary center. [place] held, recommend resuming Eliquis 02/01/2024. Discharge home 01/19/2024 with 24 hour caregivers and [facility] PT/OT/INTERNET MARKETING SPECIALIST. Physical Exam Const alert General Appearance: cooperative HEENT normocephalic Eyes PERRL and EOMs intact bilaterally Neck supple, no JVD and no carotid bruits Resp normal respiratory effort, normal air movement and clear to auscultation bilaterally Cardio regular rate and regular rhythm GI normal to inspection, nondistended, normoactive bowel sounds, non-tender and non-distended Extremity normal capillary refill General Extremity: Negative for edema Skin no rashes or lesions noted General Skin Exam: no breakdown Psych affect normal Appearance: appropriate Weight / BMI Weight Weight: 69.626 kg Body Mass Index (BMI) 23.3 ABG / Lab / Microbiology Data 01/13/24 05:30 01/13/24 05:30 D/C Instructions Discharge Diet: No restrictions Discharge Activity: Return to Normal Activity, May Shower and Use Walker Weight Bearing Status: Weight bearing as tolerated Call your doctor if you observe: Fever of 101 or Higher, Inability to urinate, Inability to have a bowel movement, Shortness of breath, Dizziness, Fainting spells, Swelling in the ankles, Chest pain and Uncontrolled pain Additional Instructions: 01/03/2024 Resident suffered fall with closed head injury, CT head showed intracranial hemorrhage, she declined referral to tertiary center. [place] cardenas, recommend resuming Eliquis 02/01/2024. Discharge home 01/19/2024 with 24 hour caregivers and [facility] PT/OT/INTERNET MARKETING SPECIALIST. Please Follow Up With: Miguel Angel Arreola MD Meaningful Use Info Meaningful Use Meaningful Use Diagnoses (Choose all that apply): None applicable Ischemic Stroke Statin Dosing Therapy Reference: STATIN DOSE THERAPY REFERENCE: * Patients > 75 years receive moderate or high dose statin therapy. * Patients 75 years or YOUNGER should receive HIGH intensity statin dose unless contraindicated. You will be required to document reason for non-treatment if statin daily dose does not meet guidelines. HIGH DOSE STATIN THERAPY DAILY Atorvastatin > than or = to 40 mg Rosuvastatin > than or = to 20 mg Amlodipine + Atorvastatin > than or = to 2.5/40 mg Ezetimibe + Simvastatin 10/80 mg Simvastatin 80mg Discharge Plan Admission Admit Date/Time: 12/15/23 15:01 Primary Reason for Your Visit: Debility. Attending Provider: Rod Ochoa Chi Primary Care Provider: Elizabeth Cai Instructions Additional Instructions / Restrictions: 01/03/2024 Resident suffered fall with closed head injury, CT head showed intracranial hemorrhage, she declined referral to tertiary center. Eliquis held, recommend resuming Eliquis 02/01/2024. Discharge home 01/19/2024 with 24 hour caregivers and [facility] PT/OT/INTERNET MARKETING SPECIALIST. Discharge Orders/Prescriptions Prescriptions: New pantoprazole 40 mg Tablet,Delayed Release (Dr/Ec) 40 mg PO DAILY 30 Days Qty: 30 0RF lidocaine 5 % Adhesive Patch,Medicated 1 patch topical 0700 30 Days Qty: 30 0RF Protocol: *Topical Application Instructions APPLICATION INSTRUCTIONS: Apply to distal end of the R clavicle lisinopril 2.5 mg Tablet 2.5 mg PO QHS 30 Days Qty: 30 0RF Continued escitalopram oxalate 5 mg tablet 5 mg PO DAILY Qty: 90 1RF kc-afu-ZV-Kp-Ta-kjomsol-lutein 1 EACH tablet 1 ea PO DAILY Patient Comments: vitamin acetaminophen 500 mg Tablet 1,000 mg PO 0900,1500,2000 Qty: 1 0RF ascorbic acid (vitamin C) [Vitamin C] 1,000 mg tablet 1 g PO DAILY Qty: 1 0RF Rx Instructions: Give this once a day when Ferrous sulfate given. levothyroxine 112 mcg tablet 112 mcg PO DAILY donepezil 5 mg tablet 5 mg PO QHS Qty: 90 3RF Discontinued biotin 500 mcg capsule 1 mg PO DAILY magnesium hydroxide 400 mg/5 mL Suspension 30 ml PO X1 PRN (Reason: Constipation) Qty: 30 0RF bisacodyl 10 mg Suppository 10 mg NE X1 PRN (Reason: Constipation) Qty: 1 0RF pantoprazole 40 mg Tablet,Delayed Release (Dr/Ec) 40 mg PO DAILY Qty: 1 0RF lidocaine 5 % Adhesive Patch,Medicated 1 patch topical 0700 Qty: 1 0RF Protocol: *Topical Application Instructions APPLICATION INSTRUCTIONS: APPLY TO THE DISTAL END OF THE R CLAVICLE Venofer 100 mg iron/5 mL Solution 200 mg IV DAILY Qty: 5 0RF lisinopril 2.5 mg Tablet 2.5 mg PO QHS Qty: 1 0RF sennosides-docusate sodium [Stool Softener-Stimulant Laxat] 8.6-50 mg Tablet 1 tab PO BID PRN (Reason: Constipation) Qty: 1 0RF tramadol 50 mg Tablet 25 mg PO Q6H 7 Days Qty: 14 0RF Daily Fiber (psyllium-aspart) 3 gram Powder In Packet 1 packet PO DAILY Qty: 0 0RF Eliquis 2.5 mg tablet 2.5 mg PO BID Qty: 180 3RF Hold Instructions: Resume on 11/17/23. ferrous sulfate [FeroSul] 325 mg (65 mg iron) tablet See Rx Instructions .ROUTE .COMPLEX Qty: 90 3RF Hold Instructions: Resume on 12/19/23. Dose Instruction: take 1 tablet by mouth once daily Rx Instructions: take 1 tablet by mouth once daily Referrals / Follow Up: Elizabeth Cai MD [Primary Care Provider] - 01/23/24 1:00 pm (Will see JESUS Saha) Disposition Disposition (needs filled in before D/C Order can be placed): Home Health Service
[2024-01-16 20:45] VITALS: BP 124/50; PULSE 68
[2024-01-16] MEDS: Donepezil HCl 5 MG Tablet PO (20:45)
[2024-01-16] MEDS: Lisinopril 2.5 MG Tablet PO (20:46)
[2024-01-17 06:00] VITALS: PULSE 70; O2SAT 94
[2024-01-17] MEDS: Levothyroxine 112 MCG Tablet PO (06:03)
[2024-01-17] MEDS: Lidocaine 5% Patch 1 PATCH TOPICAL (06:03)
[2024-01-17] MEDS: Escitalopram Oxalate 10 MG Tablet 5 MG PO (08:27)
[2024-01-17] MEDS: Pantoprazole Sodium 40 MG Tablet PO (08:27)
[2024-01-17] MEDS: Acetaminophen 500 MG Tablet 1000 MG PO ×3 (08:27→20:54)
[2024-01-17] MEDS: Psyllium 1 PACKET PO (08:27)
[2024-01-17] MEDS: Multivitamins,Ther W-Minerals Tablet 1 TABLET PO (08:27)
[2024-01-17] MEDS: Ascorbic Acid 500 MG Tablet 1000 MG PO (08:28)
--- NOTE | 2024-01-17 09:05 | CASEMGMT ---
Social Work SERJIO received a call from [facility], Tom Ruvalcaba to confirm acceptance for home health care services. Peg reviewed home health care services requested; referral submitted for PT/OT/ORE ROASTER. Peg requesting for custodial to be added to support patient and aid in initiating start of care on Friday 01/19. SERJIO contacted patient's caregiver, Krupa who confirmed that she will be able to provide in home care and support for patient. SERJIO contacted patient's son. Phill who confirmed that he would like a nurse added to home health care. Phill informed SERJIO that he is agreeable to discharge plan for Home with home health care; D/C 01/18. Discharge 01/18 [facility] SN/PT/OT/ORE ROASTER with 24/hr caregiver support. CHELSEY Jacobsen
[2024-01-17] MEDS: Ferrous Sulfate 325 MG Tablet PO (12:35)
[2024-01-17 15:00] VITALS: BMI 24.2
[2024-01-17 15:24] VITALS: BP 108/44; PULSE 69; RESP 17; TEMP 36.6; O2SAT 97
[2024-01-17] MEDS: Lisinopril 2.5 MG Tablet PO (20:56)
[2024-01-17] MEDS: Donepezil HCl 5 MG Tablet PO (20:56)
[2024-01-18] MEDS: Levothyroxine 112 MCG Tablet PO (06:03)
[2024-01-18] MEDS: Lidocaine 5% Patch 1 PATCH TOPICAL (08:19)
[2024-01-18] MEDS: Multivitamins,Ther W-Minerals Tablet 1 TABLET PO (08:23)
[2024-01-18] MEDS: Acetaminophen 500 MG Tablet 1000 MG PO ×3 (08:24→21:18)
[2024-01-18] MEDS: Escitalopram Oxalate 10 MG Tablet 5 MG PO (08:24)
[2024-01-18] MEDS: Psyllium 1 PACKET PO (08:25)
[2024-01-18] MEDS: Ascorbic Acid 500 MG Tablet 1000 MG PO (08:26)
[2024-01-18] MEDS: Pantoprazole Sodium 40 MG Tablet PO (08:26)
[2024-01-18] MEDS: Ferrous Sulfate 325 MG Tablet PO (08:26)
[2024-01-18 16:00] VITALS: BP 110/56; PULSE 70; RESP 16; TEMP 36.3; O2SAT 98
[2024-01-18 21:16] VITALS: BP 106/53; PULSE 70
[2024-01-18] MEDS: Donepezil HCl 5 MG Tablet PO (21:17)
[2024-01-18] MEDS: Lisinopril 2.5 MG Tablet PO (21:18)
[2024-01-18 21:20] VITALS: PULSE 70; RESP 14; O2SAT 96
[2024-01-19] MEDS: Levothyroxine 112 MCG Tablet PO (06:06)
[2024-01-19] MEDS: Lidocaine 5% Patch 1 PATCH TOPICAL (06:07)
[2024-01-19 07:04] VITALS: PULSE 70; RESP 16; O2SAT 94
[2024-01-19] MEDS: Acetaminophen 500 MG Tablet 1000 MG PO ×2 (08:37→15:45)
[2024-01-19] MEDS: Pantoprazole Sodium 40 MG Tablet PO (08:37)
[2024-01-19] MEDS: Ascorbic Acid 500 MG Tablet 1000 MG PO (08:37)
[2024-01-19] MEDS: Psyllium 1 PACKET PO (08:37)
[2024-01-19] MEDS: Escitalopram Oxalate 10 MG Tablet 5 MG PO (08:38)
[2024-01-19] MEDS: Multivitamins,Ther W-Minerals Tablet 1 TABLET PO (08:38)
--- NOTE | 2024-01-19 10:29 | CASEMGMT ---
Social Work SW met with patient at bedside to discuss discharge plans. SW reviewed discharge plans. Patient anticipates discharge home with [facility] PT/OT/SN/PULPWOOD BUYER. SW completed discharge MDS. BIM (08/19) and PhQ () CHELSEY Jacobsen
[2024-01-19] MEDS: Ferrous Sulfate 325 MG Tablet PO (12:04)
--- NOTE | 2024-01-19 15:00 | CASEMGMT ---
Addendum entered by Jose F Bland 01/20/24 08:43: Patient was transported by Krupa to home at 6PM on 01/19/2024 Original Note: Social Work SW received notification from staff that patient has not discharged from TCU at this time. SW attempted to contact patient's caregiver, Krupa and son, Phill to determine pick up truck driver time; no answer. A voicemail was left for both patient's son, Phill and caregiver, Krupa requesting follow up for transportation to home. CHELSEY Jacobsen
[2024-01-19 15:09] VITALS: BP 108/48; PULSE 75; RESP 18; TEMP 36.4; O2SAT 94
== END 2024-01-19 18:27 | disposition home health service (06) | DRG 560 ==
PROVIDERS: Admitting Provider Family Medicine Geriatric Medicine; PCP Internal Medicine; Visit Provider Family Medicine Geriatric Medicine
DX: S32.9XXD Fracture of unspecified parts of lumbosacral spine and pelvis, subsequent encounter for fracture with routine healing (principal); N39.0 Urinary tract infection, site not specified; I44.2 Atrioventricular block, complete; F02.80 Dementia in other diseases classified elsewhere, unspecified severity, without behavioral disturbance, psychotic disturbance, mood disturbance, and anxiety; G30.9 Alzheimer's disease, unspecified; I48.91 Unspecified atrial fibrillation; M06.9 Rheumatoid arthritis, unspecified; F32.A Depression, unspecified; D50.9 Iron deficiency anemia, unspecified; E89.0 Postprocedural hypothyroidism; J45.909 Unspecified asthma, uncomplicated; I10 Essential (primary) hypertension; M19.90 Unspecified osteoarthritis, unspecified site; F41.9 Anxiety disorder, unspecified; W19.XXXD Unspecified fall, subsequent encounter; K21.9 Gastro-esophageal reflux disease without esophagitis; S22.42XA Multiple fractures of ribs, left side, initial encounter for closed fracture; S00.83XA Contusion of other part of head, initial encounter; W19.XXXA Unspecified fall, initial encounter; Z79.01 Long term (current) use of anticoagulants; S42.001D Fracture of unspecified part of right clavicle, subsequent encounter for fracture with routine healing; Z79.899 Other long term (current) drug therapy; Z23 Encounter for immunization; Y92.129 Unspecified place in nursing home as the place of occurrence of the external cause
CPT/HCPCS: 36415; 72170; 73552; 80048; 82962; 83540; 83550; 85025; 90677; 92507; 92523; 97110; 97116; 97129; 97162; 97166; 97530; 97535; 97802; J7050; A4216; J2916

== ENCOUNTER → 2024-01-02 | Outpatient (CLI) | payer MEDICARE, OTHER, SELFPAY ==
--- NOTE | 2024-01-02 07:39 | CT_ITS ---
INDICATION: FALL WITH HEAD STRIKE EXAMINATION: CT BRAIN - CT Head or Brain W/O Contrast Injection TECHNIQUE: Multiple axial images were obtained of the head without intravenous contrast. A radiation dose optimization technique was used for this scan. IV Contrast dosage and agent: None. RADIATION DOSAGE (If Supplied By Facility): CTDIvol = ( 44.99 ) mGy, DLP = ( 779.24 ) mGycm COMPARISON: November 27, 2023 FINDINGS: BRAIN PARENCHYMA: No intra- or extra-axial hemorrhage. There are patchy foci of low attenuation within the white matter of the cerebral hemispheres, a nonspecific finding most commonly reflecting small vessel ischemia. No evidence of acute infarct. No intracranial mass or mass effect. There is preservation of the harvey/white matter interface. Posterior fossa structures are unremarkable. CSF SPACES: Appropriate for age. No hydrocephalus. Basal cisterns are patent. CALVARIUM, SKULL BASE, PARANASAL SINUSES AND MASTOID AIR CELLS: There is persistent opacification of the right maxillary sinus consistent with a history of sinusitis. No discrete lytic or blastic abnormalities. There is a subcutaneous hematoma overlying the right posterior calvarium. ORBITS: Both globes, extraocular muscles, optic nerves and retrobulbar fat appear unremarkable. ASPECTS Score for Acute Strokes: 10 CT/Brain/Head without Contrast IMPRESSION: No acute intracranial process. Small vessel ischemia. Electronically Signed: Jihan Felder MD at 8:22 EDT ,
== END | disposition home or self-care (01) ==
PROVIDERS: PCP Internal Medicine; Referring Provider Family Medicine Geriatric Medicine; Visit Provider Family Medicine Geriatric Medicine
DX: S09.90XA Unspecified injury of head, initial encounter (principal)
CPT/HCPCS: 70450

== ENCOUNTER 2024-01-03 15:07 | Emergency (ER) | payer MEDICARE, OTHER, SELFPAY ==
[2024-01-03 15:11] VITALS: BP 151/69; PULSE 70; RESP 12; TEMP 36.8; O2SAT 100; BMI 24.4
[2024-01-03 15:22] VITALS: O2SAT 100
--- NOTE | 2024-01-03 16:08 | EX.ED.GENINJ ---
HPI History of Present Illness Chief Complaint: Fall Narrative Narrative: 88-year-old female from the TCU status post hip fracture and apparently had a fall yesterday and hit her head. CT was done yesterday and repeated today and it does show that she has a small bleed documented as a small hemorrhagic cortical bleed. Patient states she is on Eliquis. She does have history of dementia but is alert and awake. She is oriented to the time and place as well as situation. She is with her caregiver from home who states she is at her baseline. Patient states that she feels otherwise well. She would not want any surgical intervention should she need it for her intracranial hemorrhage. She also states she would not want to be transferred to a facility with neurosurgery because she could not have the surgery. [facility] Medical History Acquired hypothyroidism Allergies Anemia Anxiety and depression Arthritis Asthma Atrial fibrillation BRBPR (bright red blood per rectum) Cardiology follow-up encounter Carpal tunnel syndrome Chronic anticoagulation Closed head injury Complete heart block Concussion CVA (cerebral vascular accident) Delayed wound healing Dementia Distal radius fracture Edema leg Essential (primary) hypertension Fall Fall Flu vaccine need Fracture of metacarpal base, first, right hand, closed Fracture of right inferior pubic ramus Fracture of right superior pubic ramus GI bleed Goiter Hearing problem History of GI bleed History of IBS History of stress test Hyperlipidemia Hyperlipidemia Hypertension Hypothyroidism Hypothyroidism Iron deficiency anemia Malnutrition Microscopic colitis Microscopic colitis Mild intermittent asthma Non-smoker Nonrheumatic mitral valve insufficiency Open wound of left ring finger Osteoarthritis Pacemaker lead malfunction Parathyroid disorder Periorbital edema of left eye Persistent atrial fibrillation Personal history of colonic polyps Rheumatoid arthritis Right hemiparesis Sick sinus syndrome Stroke/cerebrovascular accident Thyroid storm Ulcer of left lower extremity with fat layer exposed Ulcer of right lower extremity with fat layer exposed Venous insufficiency Vertigo 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 Wears glasses Home Medications [id number] 0.4 mg-calcium 162 mg-iron 18 yr-hipjadi-yofddx tablet 1 ea PO DAILY supplement 06/03/19 [History Last Taken 12/15/23] apixaban 2.5 mg tablet (Eliquis) 2.5 mg PO BID blood thinner #180 tabs 11/24/22 [Rx Last Taken 12/15/23] biotin 500 mcg capsule 1 mg PO DAILY supplement 03/25/23 [History Last Taken 12/15/23] donepezil 5 mg tablet 5 mg PO QHS memory #90 tabs 04/07/23 [Rx Last Taken 12/14/23] ferrous sulfate 325 mg (65 mg iron) tablet (FeroSul) See Rx Instructions .Route .COMPLEX supplement #90 TABLETS 06/27/23 [Rx Last Taken 12/15/23] escitalopram oxalate 5 mg tablet 5 mg PO DAILY anxiety #90 tabs 07/18/23 [Rx Last Taken 12/15/23] levothyroxine 112 mcg tablet 112 mcg PO DAILY thyroid 11/09/23 [History Last Taken 12/15/23] psyllium husk (aspartame) 3 gram oral powder packet (Daily Fiber (psyllium-aspartame)) 1 packet PO DAILY bowel mobility #0 ea 11/29/23 [Rx Last Taken 12/14/23] acetaminophen 500 mg tablet 1,000 mg (2 x 500 mg) PO 0900,1500,2000 pain 1-10 #1 TAB 12/15/23 [Rx Last Taken Unknown] ascorbic acid (vitamin C) 1,000 mg tablet (Vitamin C) 1 g PO DAILY supplement #1 TAB 12/15/23 [Rx Last Taken 12/15/23] bisacodyl 10 mg rectal suppository 10 mg FL X1 PRN Constipation #1 ea 12/15/23 [Rx Last Taken 12/15/23] iron sucrose 100 mg iron/5 mL intravenous solution (Venofer) 200 mg (10 mL) IV DAILY Supplement #5 mL 12/15/23 [Rx Last Taken 12/15/23] lidocaine 5 % topical patch 1 patch topical 0700 pain #1 ea 12/15/23 [Rx Last Taken 12/15/23] lisinopril 2.5 mg tablet 2.5 mg PO QHS BP #1 TAB 12/15/23 [Rx Last Taken 12/15/23] magnesium hydroxide 400 mg/5 mL oral suspension 30 ml PO X1 PRN Constipation #30 mL 12/15/23 [Rx Last Taken Unknown] pantoprazole 40 mg tablet,delayed release 40 mg PO DAILY Supplement #1 TAB 12/15/23 [Rx Last Taken 12/15/23] sennosides 8.6 mg-docusate sodium 50 mg tablet (Stool Softener-Stimulant Laxative) 1 tab PO BID PRN Constipation #1 TAB 12/15/23 [Rx Last Taken Unknown] tramadol 50 mg tablet 25 mg (1/2 x 50 mg) PO Q6H pain 7 days #14 tabs 12/15/23 [Rx Last Taken 12/15/23] Allergy/AdvReac Type Severity Reaction Status Date / Time Environmental Allergies: Allergy Mild sneezing Verified 01/03/24 15:16 Uncoded latex AdvReac Itching Verified 01/03/24 15:16 sulfamethoxazole AdvReac Nausea Verified 01/03/24 15:16 [From Bactrim] trimethoprim [From Bactrim] AdvReac Nausea Verified 01/03/24 15:16 Family History Father CAD (coronary artery disease) Brother Cancer Leukemia Brother Epilepsy Mother Colon cancer Other CVA (cerebral vascular accident) Diabetes Surgical History H/O thyroidectomy H/O thyroidectomy History of knee replacement History of permanent cardiac pacemaker placement History of right hip replacement Status post placement of cardiac pacemaker Social History household members: none and other details: she has a thread spinner who comes every day housing: house number of children: 3 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 [facility] ED Constitutional Constitutional ED: Denies chills, fever(s) or sweats Eyes Eyes: Denies blurry vision or change in vision ENT ENT ED: Denies ear pain or sore throat Cardiovascular Cardiovascular: Denies chest pain, palpitations or racing heartbeat Respiratory/Chest Respiratory/Chest: Denies cough, dyspnea or sputum Gastrointestinal Gastrointestinal: Denies abdominal pain, constipation, diarrhea, nausea or vomiting Genitourinary Genitourinary ED: Denies dysuria, hematuria or urinary frequency Integumentary Denies abscess, Abrasions or rash Neurologic Neurologic: Denies headache(s), paresthesias or weakness Psychiatric Psychiatric: Denies anxiety, depression, suicidal ideation or suicidal thoughts Endocrine Endocrinology: Denies polydipsia or polyuria EXAM Physical Exam Const Vital Signs: 01/03/24 15:11 01/03/24 15:22 Temperature 98.2 F Temperature Source Temporal Pulse Rate 70 Respiratory Rate 12 Respiratory Effort Normal Respiratory Depth Normal Respiratory Pattern Normal Blood Pressure 151/69 H Blood Pressure Mean 96 Pulse Ox 100 100 Oxygen Delivery Method Room Air Room Air Positive well nourished General Appearance ED: NAD Eyes PERRL and EOMs intact bilaterally Chest Wall inspection of chest normal Resp normal respiratory effort Cardio regular rhythm Rate: regular rate Neuro oriented x3, CN's II-XII intact bilaterally, no focal motor deficits and no sensory deficits noted Jayme Coma Scale: document GCS findings Spontaneous Obeys Commands Oriented 15 Sensorium / Orientation: alert Psych mental status grossly normal Skin no rashes or lesions noted MDM MDM MDM Narrative Medical decision making narrative: 88-year-old female presenting from the TCU with a hemorrhagic cortical contusion by CT. She reports that she would not want to be transferred to a trauma center or a neurosurgical specialty. She does not want surgery should this worsen. I had a long discussion with her caregiver at the bedside as well as the patient. The patient called her son and we had a three-way conversation on speaker phone and after discussing this with her son her son felt it was up to her and she does have the capacity to make this decision. She states she does not want to go to any other facility and if this should worsen she would just want to be made comfortable. She acknowledges the risk that this could get worse that she is on Eliquis. Discussed this at length with her son as well. Will discuss this with Dr. Ochoa and she will be transferred back to TCU. Impression: 1. Hemorrhagic cortical contusion Lab Data Attestation: I reviewed the patient's lab results. Discharge Plan Triage Chief Complaint: Fall ED Provider: Feng Loomis Dx/Rx/DC Orders Prescriptions: No Action escitalopram oxalate 5 mg tablet 5 mg PO DAILY Qty: 90 1RF [id number]-KA-Ys-Ho-zufpfwb-lutein 1 EACH tablet 1 ea PO DAILY Patient Comments: vitamin biotin 500 mcg capsule 1 mg PO DAILY acetaminophen 500 mg Tablet 1,000 mg PO 0900,1500,2000 Qty: 1 0RF magnesium hydroxide 400 mg/5 mL Suspension 30 ml PO X1 PRN (Reason: Constipation) Qty: 30 0RF bisacodyl 10 mg Suppository 10 mg FL X1 PRN (Reason: Constipation) Qty: 1 0RF pantoprazole 40 mg Tablet,Delayed Release (Dr/Ec) 40 mg PO DAILY Qty: 1 0RF lidocaine 5 % Adhesive Patch,Medicated 1 patch topical 0700 Qty: 1 0RF Protocol: *Topical Application Instructions APPLICATION INSTRUCTIONS: APPLY TO THE DISTAL END OF THE R CLAVICLE Venofer 100 mg iron/5 mL Solution 200 mg IV DAILY Qty: 5 0RF lisinopril 2.5 mg Tablet 2.5 mg PO QHS Qty: 1 0RF sennosides-docusate sodium [Stool Softener-Stimulant Laxat] 8.6-50 mg Tablet 1 tab PO BID PRN (Reason: Constipation) Qty: 1 0RF tramadol 50 mg Tablet 25 mg PO Q6H 7 Days Qty: 14 0RF ascorbic acid (vitamin C) [Vitamin C] 1,000 mg tablet 1 g PO DAILY Qty: 1 0RF Rx Instructions: Give this once a day when Ferrous sulfate given. levothyroxine 112 mcg tablet 112 mcg PO DAILY Daily Fiber (psyllium-aspart) 3 gram Powder In Packet 1 packet PO DAILY Qty: 0 0RF Eliquis 2.5 mg tablet 2.5 mg PO BID Qty: 180 3RF Hold Instructions: Resume on 11/17/23. donepezil 5 mg tablet 5 mg PO QHS Qty: 90 3RF ferrous sulfate [FeroSul] 325 mg (65 mg iron) tablet See Rx Instructions .ROUTE .COMPLEX Qty: 90 3RF Hold Instructions: Resume on 12/19/23. Dose Instruction: take 1 tablet by mouth once daily Rx Instructions: take 1 tablet by mouth once daily Primary Care Provider: Elizabeth Cai Referrals: Elizabeth Cai MD [Primary Care Provider] -
[2024-01-03 16:49] VITALS: BP 122/58; PULSE 70; RESP 12; TEMP 36.8; O2SAT 99
== END 2024-01-03 16:51 ==
PROVIDERS: Emergency Provider Student in an Organized Health Care Education/Training Program; PCP Internal Medicine; Visit Provider Student in an Organized Health Care Education/Training Program
DX: S06.89AA Other specified intracranial injury with loss of consciousness status unknown, initial encounter (principal); F03.90 Unspecified dementia, unspecified severity, without behavioral disturbance, psychotic disturbance, mood disturbance, and anxiety; I48.91 Unspecified atrial fibrillation; J45.909 Unspecified asthma, uncomplicated; W19.XXXA Unspecified fall, initial encounter; Z95.0 Presence of cardiac pacemaker
CPT/HCPCS: 99282; A4216

== ENCOUNTER → 2024-01-03 | Outpatient (CLI) | payer MEDICARE, OTHER, SELFPAY ==
--- NOTE | 2024-01-03 12:53 | CT_ITS ---
ACR Level 3 findings have been noted. An addendum which confirms receipt of the report will follow. HISTORY: FALL. TECHNIQUE: Multiple axial images were obtained of the head without intravenous contrast. A radiation dose optimization technique was used for this scan. 239 images. COMPARISON: Prior day. FINDINGS: BRAIN PARENCHYMA: Multiple foci and zones of low attenuation in the bilateral cerebral white matter compatible with chronic small vessel ischemic gliosis. 6 mm hyperdensity now seen at the medial left temporal cortex. CSF SPACES: Mild volume loss. No midline shift or other significant mass effect. OTHER: Intact calvarium. Right parietal scalp hematoma again seen. Right maxillary sinus fluid and mucosal thickening with hyperostosis. Bilateral lens resections. CT/Brain/Head without Contrast IMPRESSION: Mild hyperdensity of the left medial temporal cortex, suspicious for small hemorrhagic cortical contusion. Right parietal scalp contusion. Chronic involutional and white matter changes. Right maxillary sinusitis. Electronically Signed: Nicci Bolaños MD at 14:42 EDT ,
== END | disposition home or self-care (01) ==
LOC: CT 12:52
PROVIDERS: PCP Internal Medicine; Referring Provider Family Medicine Geriatric Medicine; Visit Provider Family Medicine Geriatric Medicine
DX: I61.9 Nontraumatic intracerebral hemorrhage, unspecified (principal)
CPT/HCPCS: 70450; A4216

== ENCOUNTER → 2024-02-01 | Outpatient (CLI) | payer MEDICARE, OTHER, SELFPAY ==
[2024-02-01 15:43] LABS: Absolute Lymphocyte Count 0.91 X10^3/uL (0.83-4.51); Absolute Neutrophil Count 4.2 X10^3/uL (2.0-7.7); Basophil# 0.07 X10^3/uL; Basophil% 1.2 % (0-1); Eosinophil# 0.14 X10^3/uL; Eosinophils% 2.4 % (0-5); Hematocrit 38.3 % (37-47); Hemoglobin 12.1 g/dL (12.0-15.0); Lymphocyte # 0.91 X10^3/ul (0.83-4.51); Lymphocyte % 15.4 % (19-41); Mean Corp Hgb Conc 31.6 g/dL (32-36); Mean Corpuscular Hgb 30.8 pg (27.0-32.0); Mean Corpuscular Volume 97.5 fL (81-99); Mean Platelet Vol. 11.6 fl (6.2-12.0); Monocyte# 0.53 X10^3/uL; NRBC Flagged by Analyzer 0 % (0-5); Neutrophil # 4.19 X10^3/uL (2.7-7.7); Neutrophil % 71.2 % (47-70); Platelet Count 201 K/mm3 (150-450); RBC Distribution Width SD 50.7 fl (35.1-43.9); Red Blood Count 3.93 M/mm3 (4.2-5.4); White Blood Count 5.9 K/mm3 (4.4-11.0)
== END | disposition home or self-care (01) ==
LOC: BIMLAB 12:18
PROVIDERS: PCP Internal Medicine; Visit Provider Physician Assistant
DX: D64.9 Anemia, unspecified (principal)
CPT/HCPCS: 36415; 85025

== ENCOUNTER → 2024-04-25 | Outpatient (CLI) | payer MEDICARE, OTHER, SELFPAY ==
[2024-04-25 12:21] LABS: Absolute Lymphocyte Count 0.93 X10^3/uL (0.83-4.51); Absolute Neutrophil Count 3.1 X10^3/uL (2.0-7.7); Basophil# 0.08 X10^3/uL; Basophil% 1.7 % (0-1); Eosinophil# 0.27 X10^3/uL; Eosinophils% 5.6 % (0-5); Hematocrit 41.5 % (37-47); Hemoglobin 13.1 g/dL (12.0-15.0); Lymphocyte # 0.93 X10^3/ul (0.83-4.51); Lymphocyte % 19.4 % (19-41); Mean Corp Hgb Conc 31.6 g/dL (32-36); Mean Corpuscular Hgb 30.3 pg (27.0-32.0); Mean Corpuscular Volume 96.1 fL (81-99); Mean Platelet Vol. 10.8 fl (6.2-12.0); Monocyte# 0.39 X10^3/uL; Monocyte% 8.1 % (0-10); NRBC Flagged by Analyzer 0 % (0-5); Neutrophil # 3.09 X10^3/uL (2.7-7.7); Neutrophil % 64.6 % (47-70); Platelet Count 205 K/mm3 (150-450); RBC Distribution Width CV 11.6 % (11.6-14.6); RBC Distribution Width SD 40.7 fl (35.1-43.9); Red Blood Count 4.32 M/mm3 (4.2-5.4); White Blood Count 4.8 K/mm3 (4.4-11.0)
[2024-04-25 15:31] LABS: Anion Gap 5 (5-15); BUN 16 mg/dL (7-18); BUN/Creat Ratio 19.9 RATIO (10-20); Calcium,Total 9.8 mg/dL (8.5-10.1); Chloride 105 mmol/L (98-107); Creatinine, Serum 0.81 mg/dL (0.55-1.02); EST Glomerular Filtration Rate 71 mL/min (>60); Est Glom Filt Rate - Afr Amer 86 mL/min (>60); Glucose 99 mg/dL (74-106); Potassium 4.5 mmol/L (3.5-5.1); Sodium Level 140 mmol/L (136-145)
[2024-04-25 16:47] LABS: Thyroid Stim Hormone (TSH) 0.169 uIU/mL (0.358-3.740)
== END | disposition home or self-care (01) ==
LOC: BIMLAB 11:26
PROVIDERS: PCP Internal Medicine; Referring Provider Internal Medicine; Visit Provider Internal Medicine
DX: I10 Essential (primary) hypertension (principal); E03.9 Hypothyroidism, unspecified
CPT/HCPCS: 36415; 80048; 84443; 85025

== ENCOUNTER → 2024-06-04 | Outpatient (CLI) | payer MEDICARE, OTHER, SELFPAY ==
[2024-06-04 13:43] LABS: AST(SGOT) 15 U/L (15-37); Alanine Aminotransfer ALT/SGPT 15 U/L (13-56); Albumin, Serum 3.2 g/dL (3.2-5.0); Alkaline Phosphatase 71 U/L (45-117); Cholesterol 155 mg/dL (200); Globulin 3.7 g/dL (2.2-4.2); High Density Lipoprotein 53 mg/dL; Protein, Total 6.9 g/dL (6.4-8.2); Triglycerides 87 mg/dL; Very Low Density Lipoprotein 17 mg/dL (5-40)
[2024-06-04 13:46] LABS: Thyroid Stim Hormone (TSH) 0.011 uIU/mL (0.358-3.740)
== END | disposition home or self-care (01) ==
LOC: LAB 12:06
PROVIDERS: PCP Internal Medicine; Referring Provider Nurse Practitioner Gerontology; Visit Provider Internal Medicine
DX: E78.5 Hyperlipidemia, unspecified (principal); E03.9 Hypothyroidism, unspecified
CPT/HCPCS: 36415; 80061; 80076; 84443

== ENCOUNTER → 2024-08-01 | Outpatient (CLI) | payer MEDICARE, OTHER, SELFPAY ==
[2024-08-01 16:16] LABS: Thyroid Stim Hormone (TSH) 0.054 uIU/mL (0.358-3.740)
== END | disposition home or self-care (01) ==
LOC: BIMLAB 13:10
PROVIDERS: PCP Internal Medicine; Referring Provider Internal Medicine; Visit Provider Internal Medicine
DX: E03.9 Hypothyroidism, unspecified (principal)
CPT/HCPCS: 36415; 84443

== ENCOUNTER → 2024-09-24 | Outpatient (CLI) | payer MEDICARE, OTHER, SELFPAY ==
[2024-09-24 16:05] LABS: Thyroid Stim Hormone (TSH) 0.042 uIU/mL (0.358-3.740)
== END | disposition home or self-care (01) ==
PROVIDERS: PCP Internal Medicine; Referring Provider Internal Medicine; Visit Provider Internal Medicine
DX: E03.9 Hypothyroidism, unspecified (principal)
CPT/HCPCS: 36415; 84443

== ENCOUNTER → 2024-11-07 | Outpatient (CLI) | payer MEDICARE, OTHER, SELFPAY ==
[2024-11-07 13:25] LABS: Thyroid Stim Hormone (TSH) 0.105 uIU/mL (0.300-4.200)
== END | disposition home or self-care (01) ==
LOC: BIMLAB 11:09
PROVIDERS: PCP Internal Medicine; Referring Provider Internal Medicine; Visit Provider Internal Medicine
DX: E03.9 Hypothyroidism, unspecified (principal)
CPT/HCPCS: 36415; 84443

== ENCOUNTER → 2024-11-29 | Outpatient (CLI) | payer MEDICARE, OTHER, SELFPAY ==
--- NOTE | 2024-11-29 12:40 | ART_ITS ---
Reason For Study Reason For Study: Wounds lower extremities Procedure A bilateral lower extremity continuous wave Doppler with analog waveform analysis and ankle brachial indexes. Left Segmental Pressures Left brachial= 144mmHg. Left posterior tibial artery = >254mmHg. Left dorsalis pedis artery = >254mmHg. Left digit = 122 mmHg. The left dorsalis pedis waveforms are triphasic. The left posterior tibial artery waveforms are triphasic. Right Segmental Pressures Right brachial= 139mmHg. Right posterior tibial artery = >254mmHg. Right dorsalis pedis artery = 183mmHg. Right digit = 87 mmHg. The right dorsalis pedis waveforms are triphasic. The right posterior tibial artery waveforms are triphasic. Indices The right ankle brachial index by the dorsalis pedis is 1.27. The right ankle brachial index by the posterior tibial artery is NC. The right digital-brachial index is 0.60. The left ankle brachial index by the dorsalis pedis is NC. The left ankle brachial index by the posterior tibial artery is NC. The left digital-brachial index is 0.85. VL/Ankle Brachial Index Interpretation Summary Right KURT 1.27 normal. Doppler/PVR waveforms of the right ankle normal at rest. TBI diminished, pedal/digit disease vs spasm Left KURT not able to be obtained due to non-compressible vessels. TBI and Doppl er/PVR waveforms of the left ankle normal at rest. Ordering Physician: Jomar Michelle Referring Physician: Elizabeth Cai Performed By: AURE GOODE T
== END | disposition home or self-care (01) ==
LOC: CVS 12:40
PROVIDERS: PCP Internal Medicine; Referring Provider Physician Assistant; Visit Provider Physician Assistant
DX: S81.801A Unspecified open wound, right lower leg, initial encounter (principal); S81.802A Unspecified open wound, left lower leg, initial encounter; X58.XXXA Exposure to other specified factors, initial encounter; I79.8 Other disorders of arteries, arterioles and capillaries in diseases classified elsewhere
CPT/HCPCS: 93922

== ENCOUNTER → 2025-01-02 | Outpatient (CLI) | payer MEDICARE, OTHER, SELFPAY ==
[2025-01-02 15:39] LABS: Absolute Lymphocyte Count 1.07 X10^3/uL (0.83-4.51); Absolute Neutrophil Count 5.2 X10^3/uL (2.0-7.7); Basophil# 0.12 X10^3/uL; Basophil% 1.6 % (0-1); Eosinophil# 0.31 X10^3/uL; Eosinophils% 4.2 % (0-5); Hematocrit 40.9 % (37-47); Hemoglobin 13.3 g/dL (12.0-15.0); Lymphocyte # 1.07 X10^3/ul (0.83-4.51); Lymphocyte % 14.4 % (19-41); Mean Corp Hgb Conc 32.5 g/dL (32-36); Mean Corpuscular Hgb 30.1 pg (27.0-32.0); Mean Corpuscular Volume 92.5 fL (81-99); Mean Platelet Vol. 11.4 fl (6.2-12.0); Monocyte# 0.68 X10^3/uL; Monocyte% 9.2 % (0-10); NRBC Flagged by Analyzer 0 % (0-5); Neutrophil # 5.21 X10^3/uL (2.7-7.7); Neutrophil % 70.1 % (47-70); Platelet Count 184 K/mm3 (150-450); RBC Distribution Width CV 13.2 % (11.6-14.6); RBC Distribution Width SD 45.4 fl (35.1-43.9); Red Blood Count 4.42 M/mm3 (4.2-5.4); White Blood Count 7.4 K/mm3 (4.4-11.0)
[2025-01-02 16:41] LABS: ALB/GLOB Ratio 1.2 RATIO (0.9-2.4); AST(SGOT) 21 U/L (<=31); Alanine Aminotransfer ALT/SGPT 9 U/L (<=34); Albumin, Serum 3.8 g/dL (3.4-4.8); Alkaline Phosphatase 63 U/L (35-104); Anion Gap 10 (5-15); BUN 24 mg/dL (4-19); BUN/Creat Ratio 28.9 RATIO (10-20); Calcium,Total 9.2 mg/dL (7.6-11.0); Carbon Dioxide 26.9 mmol/L (21.0-32.0); Chloride 103 mmol/L (98-108); Creatinine, Serum 0.84 mg/dL (0.70-1.20); EST Glomerular Filtration Rate 67 (>60); Globulin 3.2 g/dL (2.2-4.2); Glucose 95 mg/dL (70-99); Potassium 4.6 mmol/L (3.3-5.1); Sodium Level 140 mmol/L (133-145); Thyroid Stim Hormone (TSH) 0.299 uIU/mL (0.300-4.200)
== END | disposition home or self-care (01) ==
LOC: BIMLAB 13:29
PROVIDERS: PCP Internal Medicine; Referring Provider Internal Medicine; Visit Provider Internal Medicine
DX: I10 Essential (primary) hypertension (principal); E03.9 Hypothyroidism, unspecified
CPT/HCPCS: 36415; 80053; 84443; 85025

== ENCOUNTER → 2025-03-28 | Outpatient (CLI) | payer MEDICARE, OTHER, SELFPAY ==
[2025-03-28 13:12] LABS: Mucous, Urine 0 SEEN /hpf (<or=2+)
[2025-03-28 15:57] LABS: Color, Urine Straw (Yellow); Glucose, Dipstick Normal (Normal); Ketone-Dipstick Negative (Negative); Leukocyte Esterase-Dipstick 25 /ul (Negative); Nitrite-Dipstick Negative (Negative); Occult Blood-Urine Negative /ul (Negative); Protein-Dipstick 15 mg/dl (Negative); Specific Gravity, Urine 1.015 (1.002-1.030); Urine Bilirubin Dipstick Negative (Negative)
[2025-03-28 17:23] LABS: Red Blood Cells-Urine 0-5 SEEN /hpf (0-5); Squamous Epithelial Cells - UA 0-5 SEEN /hpf (5-10); Transitional Epithelial - Ur 0-5 SEEN /hpf (0-5)
== END | disposition home or self-care (01) ==
LOC: LABSPEC 13:11
PROVIDERS: PCP Internal Medicine; Referring Provider Nurse Practitioner Family; Visit Provider Nurse Practitioner Family
DX: R41.0 Disorientation, unspecified (principal)
CPT/HCPCS: 81001; 87086; 87088

== ENCOUNTER → 2025-04-16 | Outpatient (CLI) | payer MEDICARE, OTHER, SELFPAY ==
[2025-04-16 11:41] LABS: Mucous, Urine 0 SEEN /hpf (<or=2+)
[2025-04-16 12:09] LABS: Color, Urine Yellow (Yellow); Glucose, Dipstick Normal (Normal); Ketone-Dipstick Negative (Negative); Leukocyte Esterase-Dipstick Negative /ul (Negative); Nitrite-Dipstick Negative (Negative); Occult Blood-Urine 10 /ul (Negative); Protein-Dipstick 30 mg/dl (Negative); Specific Gravity, Urine 1.020 (1.002-1.030); Urine Bilirubin Dipstick Negative (Negative)
[2025-04-16 12:17] LABS: Squamous Epithelial Cells - UA 5-10 SEEN /hpf (5-10); Transitional Epithelial - Ur 0-5 SEEN /hpf (0-5)
[2025-04-16 12:18] LABS: Red Blood Cells-Urine 0-5 SEEN /hpf (0-5)
== END | disposition home or self-care (01) ==
LOC: LABSPEC 11:37
PROVIDERS: PCP Internal Medicine; Referring Provider Nurse Practitioner Family; Visit Provider Nurse Practitioner Family
DX: N30.00 Acute cystitis without hematuria (principal)
CPT/HCPCS: 36415; 81001; 87086; 87088

== ENCOUNTER → 2025-06-19 | Outpatient (CLI) | payer MEDICARE, OTHER, SELFPAY ==
[2025-06-19 12:21] LABS: Hematocrit 40.3 % (37-47); Hemoglobin 13.3 g/dL (12.0-15.0); Immature Granulocytes Count 0.050 X10^3/uL (0.0-0.0); Mean Corp Hgb Conc 33.0 g/dL (32-36); Mean Corpuscular Volume 93.1 fL (81-99); Mean Platelet Vol. 9.9 fl (6.2-12.0); NRBC Flagged by Analyzer 0 % (0-5); Platelet Count 214 K/mm3 (150-450); RBC Distribution Width CV 13.4 % (11.6-14.6); RBC Distribution Width SD 45.7 fl (35.1-43.9); Red Blood Count 4.33 M/mm3 (4.2-5.4); White Blood Count 6.0 K/mm3 (4.4-11.0)
[2025-06-19 13:17] LABS: AST(SGOT) 23 U/L (<=31); Alanine Aminotransfer ALT/SGPT 9 U/L (<=34); Albumin, Serum 4.2 g/dL (3.4-4.8); Alkaline Phosphatase 54 U/L (35-104); Anion Gap 8 (5-15); BUN 22 mg/dL (4-19); BUN/Creat Ratio 22.0 RATIO (10-20); Calcium,Total 9.7 mg/dL (7.6-11.0); Carbon Dioxide 27.4 mmol/L (21.0-32.0); Chloride 96 mmol/L (98-108); Globulin 3.0 g/dL (2.2-4.2); Glucose 96 mg/dL (70-99); Potassium 5.2 mmol/L (3.3-5.1)
== END | disposition home or self-care (01) ==
LOC: LAB 11:53
PROVIDERS: PCP Internal Medicine; Referring Provider Internal Medicine; Visit Provider Internal Medicine
DX: G30.9 Alzheimer's disease, unspecified (principal); F02.84 Dementia in other diseases classified elsewhere, unspecified severity, with anxiety; F02.83 Dementia in other diseases classified elsewhere, unspecified severity, with mood disturbance; E03.9 Hypothyroidism, unspecified
CPT/HCPCS: 36415; 80053; 84443; 85025

== ENCOUNTER → 2025-07-04 | Outpatient (CLI) | payer MEDICARE, OTHER, SELFPAY ==
[2025-07-04 13:55] LABS: Anion Gap 11 (5-15); BUN 25 mg/dL (4-19); BUN/Creat Ratio 24.3 RATIO (10-20); Calcium,Total 9.6 mg/dL (7.6-11.0); Carbon Dioxide 25.9 mmol/L (21.0-32.0); Chloride 98 mmol/L (98-108); Glucose 139 mg/dL (70-99); Potassium 4.6 mmol/L (3.3-5.1)
[2025-07-04 13:59] LABS: AST(SGOT) 21 U/L (<=31); Alanine Aminotransfer ALT/SGPT 12 U/L (<=34); Albumin, Serum 4.1 g/dL (3.4-4.8); Alkaline Phosphatase 51 U/L (35-104); Bilirubin, Direct 0.26 mg/dL (0.00-0.30); Cholesterol 162 mg/dL (<=200); Globulin 2.7 g/dL (2.2-4.2); Low Density Lipoprotein Calc. 81 mg/dL; Triglycerides 52 mg/dL; Very Low Density Lipoprotein 10 mg/dL (5-40); cholesterol:hdl ratio screen 2.31
== END | disposition home or self-care (01) ==
LOC: LAB 11:44
PROVIDERS: Nurse Practitioner Gerontology; PCP Internal Medicine; Referring Provider Internal Medicine; Visit Provider Internal Medicine
DX: E78.00 Pure hypercholesterolemia, unspecified (principal)
CPT/HCPCS: 36415; 80048; 80061; 80076

== ENCOUNTER 2025-07-17 14:42 | Emergency (ER) | payer MEDICARE, OTHER, SELFPAY ==
[2025-07-17] VITALS (7 sets, daily range): BP systolic 123–145; BP diastolic 49–87; PULSE 70–82; RESP 14–22; TEMP 36.6–36.9; O2SAT 91–100; BMI 24.9
--- NOTE | 2025-07-17 14:55 | RAD_ITS ---
PROCEDURE: CHEST PA AND LATERAL 07/17/2025 REASON FOR EXAM: COUGH TECHNIQUE: Procedure Code: RADCXR Modality: DX Procedure: CHEST PA AND LATERAL COMPARISON: November 09, 2023. 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 Heart: Moderate cardiomegaly. Mediastinum: The mediastinal contour is unremarkable. Lungs: Findings suggestive of scarring at the lung bases. Bones: Degenerative changes are identified within the thoracic spine. Degenerative changes of both shoulders. Healed right rib fractures. RAD/Chest PA and Lateral IMPRESSION: Cardiomegaly. Stable examination. Reading Location: [place] [id number]
[2025-07-17 16:50] LABS: Hematocrit 35.5 % (37-47); Hemoglobin 11.7 g/dL (12.0-15.0); Immature Granulocytes Count 0.030 X10^3/uL (0.0-0.0); Mean Corp Hgb Conc 33.0 g/dL (32-36); Mean Corpuscular Volume 94.7 fL (81-99); Mean Platelet Vol. 10.4 fl (6.2-12.0); NRBC Flagged by Analyzer 0 % (0-5); POSITIVE DIFFERENTIAL YES; Platelet Count 203 K/mm3 (150-450); RBC Distribution Width CV 13.5 % (11.6-14.6); RBC Distribution Width SD 46.5 fl (35.1-43.9); Red Blood Count 3.75 M/mm3 (4.2-5.4); White Blood Count 8.2 K/mm3 (4.4-11.0)
[2025-07-17 17:10] LABS: AST(SGOT) 25 U/L (<=31); Alanine Aminotransfer ALT/SGPT 12 U/L (<=34); Albumin, Serum 4.0 g/dL (3.4-4.8); Alkaline Phosphatase 57 U/L (35-104); Anion Gap 10 (5-15); BUN 20 mg/dL (4-19); BUN/Creat Ratio 24.1 RATIO (10-20); Calcium,Total 9.0 mg/dL (7.6-11.0); Carbon Dioxide 25.0 mmol/L (21.0-32.0); Chloride 95 mmol/L (98-108); Globulin 3.0 g/dL (2.2-4.2); Glucose 104 mg/dL (70-99); Potassium 5.0 mmol/L (3.3-5.1)
[2025-07-17 17:27] LABS: Mucous, Urine 0 SEEN /hpf (<or=2+)
[2025-07-17 17:58] LABS: Color, Urine Yellow (Yellow); Glucose, Dipstick Normal (Normal); Ketone-Dipstick Negative (Negative); Leukocyte Esterase-Dipstick 25 /ul (Negative); Nitrite-Dipstick Negative (Negative); Occult Blood-Urine 10 /ul (Negative); Protein-Dipstick 30 mg/dl (Negative); Specific Gravity, Urine 1.015 (1.002-1.030); Urine Bilirubin Dipstick Negative (Negative)
--- NOTE | 2025-07-17 18:13 | EX.ED.DYSGE1 ---
HPI History of Present Illness Chief Complaint: Cough Narrative Narrative: Patient was seen and examined after presenting to ED for evaluation because patient has been coughing she has headache. They have had some sort of URI type symptoms around her she does have memory problems she is present here with 2 of her caretakers her children otherwise live outside the state going to one of the caretakers she just does not quite seem like herself she feels like she may just have little bit of some sort of URI or that her color is off but no sort of bleeding. [facility] Medical History Flu vaccine need Excoriation (skin-picking) disorder History of UTI Dementia with agitation Dementia Right clavicle fracture Chronic anticoagulation Fall Fracture of right superior pubic ramus Fracture of right inferior pubic ramus Pacemaker lead malfunction Flu vaccine need Distal radius fracture Open wound of left ring finger Anxiety and depression GI bleed Parathyroid disorder Hearing problem Goiter Carpal tunnel syndrome Allergies Iron deficiency anemia Hyperlipidemia Hypertension Hypothyroidism Atrial fibrillation Right hemiparesis CVA (cerebral vascular accident) Rheumatoid arthritis Stroke/cerebrovascular accident Wears glasses 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 Arthritis History of GI bleed History of IBS Non-smoker History of stress test Cardiology follow-up encounter BRBPR (bright red blood per rectum) Microscopic colitis Osteoarthritis Vertigo Persistent atrial fibrillation Concussion Closed head injury Hypothyroidism Fall Periorbital edema of left eye Fracture of metacarpal base, first, right hand, closed Personal history of colonic polyps Complete heart block Sick sinus syndrome Nonrheumatic mitral valve insufficiency Anemia Asthma Essential (primary) hypertension Thyroid storm Hyperlipidemia Ulcer of right lower extremity with fat layer exposed Venous insufficiency Malnutrition Delayed wound healing Edema leg Ulcer of left lower extremity with fat layer exposed Mild intermittent asthma Microscopic colitis Acquired hypothyroidism Home Medications Medication Instructions Recorded Last Taken Type akgulode-tcr-SG 0.4 mg-calcium 162 1 ea PO DAILY supplement 06/03/19 12/15/23 History mg-iron 18 or-rohsjid-gigpws tablet ascorbic acid (vitamin C) 1,000 mg 1 g PO DAILY supplement #1 TAB 12/15/23 12/15/23 Rx tablet (Vitamin C) Handicap Placard #1 ea 07/27/24 Unknown Rx aspirin 81 mg tablet,delayed 81 mg PO QDAY 01/02/25 Unknown History release (Adult Aspirin Regimen) levothyroxine 75 mcg tablet 75 mcg PO 2XW thyroid #60 tabs 02/04/25 Unknown Rx lisinopril 2.5 mg tablet 2.5 mg PO QHS #90 tabs 02/04/25 Unknown Rx Held on 06/06/25. Instructions: Home Medication placed on hold at Doctor's office escitalopram oxalate 5 mg tablet 5 mg PO DAILY anxiety #90 tabs 03/13/25 Unknown Rx levothyroxine 50 mcg tablet 50 mcg PO 5XW thyroid #90 tabs 05/15/25 Unknown Rx pantoprazole 40 mg tablet,delayed 40 mg PO DAILY #90 tabs 05/15/25 Unknown Rx release acetaminophen 500 mg tablet 1,000 mg PO 0900,1500,2000 pain 06/03/25 Unknown History 1-10 donepezil 5 mg tablet 5 mg PO QHS memory #90 tabs 07/02/25 Unknown Rx Allergy/AdvReac Type Severity Reaction Status Date / Time Environmental Allergies: Allergy Mild sneezing Verified 07/17/25 14:46 Uncoded latex AdvReac Itching Verified 07/17/25 14:46 sulfamethoxazole (From AdvReac Nausea Verified 07/17/25 14:46 Bactrim) trimethoprim (From Bactrim) AdvReac Nausea Verified 07/17/25 14:46 Family History Father CAD (coronary artery disease) Brother Cancer Leukemia Brother Epilepsy Mother Colon cancer Other CVA (cerebral vascular accident) Diabetes Surgical History Status post placement of cardiac pacemaker H/O thyroidectomy History of knee replacement History of right hip replacement History of permanent cardiac pacemaker placement H/O thyroidectomy Social History household members: none and other details: 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 Systems reviewed including constitutional, psychiatric, cardiovascular, respiratory, integument, HENT, gastrointestinal. EXAM Physical Exam Narrative Exam Narrative: Patient is afebrile hemodynamically stable does not appear toxic or in distress she is normocephalic atraumatic cranial nerves II through XII grossly intact. Her lungs are otherwise clear bilaterally abdomen is soft nontender nondistended no palpable pulsatile mass no lower extremity edema or calf tenderness. Const Vital Signs: 07/17/25 14:45 07/17/25 16:00 07/17/25 16:07 Temperature 98.2 F 98.2 F Temperature Source Oral Oral Pulse Rate 70 70 Respiratory Rate 16 14 Respiratory Effort Respiratory Depth Respiratory Pattern Blood Pressure 145/87 H 123/74 H Blood Pressure Mean 106 90 Pulse Ox 100 97 Oxygen Delivery Method Room Air Room Air Room Air 07/17/25 16:08 07/17/25 16:18 07/17/25 16:37 Temperature Temperature Source Pulse Rate 72 72 Respiratory Rate 16 22 H Respiratory Effort Normal Non-Labored Respiratory Depth Normal Respiratory Pattern Normal Blood Pressure 127/71 H 130/72 H Blood Pressure Mean 89 91 Pulse Ox 97 91 Oxygen Delivery Method Room Air Room Air 07/17/25 17:00 07/17/25 18:00 Temperature 97.8 F 98.4 F Temperature Source Oral Oral Pulse Rate 72 78 Respiratory Rate 15 16 Respiratory Effort Respiratory Depth Respiratory Pattern Blood Pressure 132/75 H 145/78 H Blood Pressure Mean 94 100 Pulse Ox 95 98 Oxygen Delivery Method Room Air Room Air MDM MDM MDM Narrative Medical decision making narrative: Nursing notes, triage notes, available previous documentation, and vital signs were reviewed. Any discrepancies noted were addressed. Differential Diagnoses: viral URI or a UTI Interventions: Fluids Given: 1 L normal saline Labs Reviewed: No leukocytosis leukopenia or significant anemia her hemoglobin is 11.7 mild hyponatremia at 129 6 and hypochloremia potassium is 5.0 no significant renal insufficiency or transaminitis her urine shows 25 leukocyte esterase Imaging Reviewed: Personally reviewed and interpreted by me: Chest x-ray can see her pacemaker. No pneumothoraces and cardiomegaly some fibrotic changes but no pneumonia Previous Documentation Reviewed: None available or applicable at this time. ED Course: Patient presenting with symptoms as stated above patient overall looks very well-appearing she has normal range of motion of her head and neck I really do not think that she has any sort of meningitis seems like it is more of a viral URI. Patient's workup is unremarkable besides some mild hyponatremia to issue he already received some IV fluids urine without any convincing evidence of infection. Return precautions follow-up recommendations provide patient stable for discharge This note was made utilizing voice recognition software. All attempts were made to correct spelling or other errors prior to note completion. However, due to the fast-paced nature of emergency medicine, some errors may still be present. Lab Data Labs: Laboratory Results - last 24 hr 07/17/25 07/17/25 16:20 17:20 WBC 8.2 RBC 3.75 L Hgb 11.7 L Hct 35.5 L MCV 94.7 MCH 31.2 MCHC 33.0 RDW Std Deviation 46.5 H RDW Coeff of Radha 13.5 Plt Count 203 MPV 10.4 Immature Gran % (Auto) 0.400 Neut % (Auto) 82.4 H Lymph % (Auto) 6.6 L [place] % (Auto) 7.0 Eos % (Auto) 2.6 Baso % (Auto) 1.0 Absolute Neuts (auto) 6.7 Absolute Lymphs (auto) 0.54 L Nucleated RBC % 0 Sodium 129 L Potassium 5.0 Chloride 95 L Carbon Dioxide 25.0 Anion Gap 10 BUN 20 H Creatinine 0.85 Est GFR (MDRD) Non-Af 66 BUN/Creatinine Ratio 24.1 H Glucose 104 H Calcium 9.0 Total Bilirubin 0.39 AST 25 ALT 12 Alkaline Phosphatase 57 Total Protein 7.0 Albumin 4.0 Globulin 3.0 Albumin/Globulin Ratio 1.3 Urine Color Yellow Urine Clarity Clear Urine pH 6.0 Ur Specific [place] 1.015 Urine Protein 30 H Urine Glucose (UA) Normal Urine Ketones Negative Urine Occult Blood 10 H Urine Nitrite Negative Urine Bilirubin Negative Urine Urobilinogen Normal Ur Leukocyte Esterase 25 H Urine RBC 0-5 SEEN Urine WBC 5-10 SEEN Ur Squamous Epith Cells 5-10 SEEN Urine Bacteria 1+ Urine Mucus 0 SEEN Radiography Diagnostic Testing: Clinical Impression(s) from Imaging Studies Chest X-Ray 07/17/25 14:55 IMPRESSION: Cardiomegaly. Stable examination. Reading Location: [place] [id number] Discharge Plan Triage Chief Complaint: Cough ED Provider: Debbi Beckman Dx/Rx/DC Orders Clinical Impression: Cough, History of dementia, Acute viral syndrome, Hyponatremia Instructions: ED Viral Syndrome (Adult) Prescriptions: No Action (DME) Handicap [place] See Rx Instructions .ROUTE .MEDSUPPLY Qty: 1 0RF Rx Instructions: As directed, length of time 3 years aspirin [Adult Aspirin Regimen] 81 mg tablet,delayed release (DR/EC) 81 mg PO QDAY acetaminophen 500 mg tablet 1,000 mg PO 0900,1500,2000 av-opy-FN-[id number]-Sp-noeupms-lutein 1 EACH tablet 1 ea PO DAILY Patient Comments: vitamin ascorbic acid (vitamin C) [Vitamin C] 1,000 mg tablet 1 g PO DAILY Qty: 1 0RF Rx Instructions: Give this once a day when Ferrous sulfate given. lisinopril 2.5 mg tablet 2.5 mg PO QHS Qty: 90 2RF levothyroxine 75 mcg tablet 75 mcg PO 2XW Qty: 60 1RF escitalopram oxalate 5 mg tablet 5 mg PO DAILY Qty: 90 1RF levothyroxine 50 mcg tablet 50 mcg PO 5XW Qty: 90 1RF pantoprazole 40 mg tablet,delayed release (DR/EC) 40 mg PO DAILY Qty: 90 0RF donepezil 5 mg tablet 5 mg PO QHS Qty: 90 3RF Primary Care Provider: Elizabeth Cai Referrals: Elizabeth Cai MD [Primary Care Provider, Internal Medicine] Activity Restrictions/Additional Instructions: Patient to follow-up with And take Tylenol as needed for your symptoms take with ibuprofen make sure that we are hydrating as well as possible do not hesitate to return if getting worse Print Language: [place] Disposition Disposition: Home, Self Care D/C Safety Score for UGIB Assessment Pickering-Blatchford Bleeding Score (GBS): Stratifies upper GI bleeding patients who are "low-risk" and candidates for outpatient management. Hemoglobin, BUN, Recent Vital Signs: Hgb 11.7 g/dL (12.0-15.0) L 07/17/25 16:20 BUN 20 mg/dL (4-19) H 07/17/25 16:20 Pulse Rate 78 Blood Pressure 145/78 Score Interpretation: Score of 0: A GBS of 0 is a “Low Risk” GI bleed, and is highly sensitive (99.6% in a 2007 retrospective study) for predicting which patients did not require any “medical intervention”: blood transfusion, endoscopy, or surgery. This was confirmed in a 2009 [facility] study where patients with a score of 0 were actually discharged and had no GI bleeding mortality at 6 month followup Score above 0: A GBS greater than zero suggests a “High Risk” GI bleed that is likely to require “medical intervention”: transfusion, endoscopy, or surgery. A higher GBS also correlated with a higher likelihood of needing intervention Scores >/= 6 are associated with >50% risk of needing intervention D/C Safety Score for LGIB Assessment Assessment Tool: Readmission and adverse event risk in patients with acute lower GI bleeding. Hemoglobin and Recent Vital Signs: Hgb 11.7 g/dL (12.0-15.0) L 07/17/25 16:20 Pulse Rate 78 07/17/25 18:00 Blood Pressure 145/78 07/17/25 18:00 Score Interpretation: Probability Percentage of safe discharge (absence of rebleeding, blood transfusion, therapeutic intervention, 28 day readmission, or ) Score of 8 or below: Consider discharge, with appropriate precautions. Score of 9 or above: Discharge NOT recommended. Consider admission with further workup and resuscitation as necessary.
[2025-07-17] MEDS: 0.9% Normal Saline (1000mL) 1,000 ML 999 ML IV (18:28)
--- NOTE | 2025-07-17 18:50 | ED.RN ---
called lab to inquire about urine results
[2025-07-17 19:05] LABS: Red Blood Cells-Urine 0-5 SEEN /hpf (0-5); Squamous Epithelial Cells - UA 5-10 SEEN /hpf (5-10)
== END 2025-07-17 19:40 | disposition home or self-care (01) ==
PROVIDERS: Emergency Provider Specialist/Technologist Athletic Trainer; PCP Internal Medicine; Visit Provider Specialist/Technologist Athletic Trainer
DX: B34.9 Viral infection, unspecified (principal); M06.9 Rheumatoid arthritis, unspecified; F03.93 Unspecified dementia, unspecified severity, with mood disturbance; F03.94 Unspecified dementia, unspecified severity, with anxiety; I48.91 Unspecified atrial fibrillation; I49.5 Sick sinus syndrome; R05.9 Cough, unspecified; R51.9 Headache, unspecified; E87.1 Hypo-osmolality and hyponatremia; E87.8 Other disorders of electrolyte and fluid balance, not elsewhere classified; E03.9 Hypothyroidism, unspecified; I10 Essential (primary) hypertension; I34.0 Nonrheumatic mitral (valve) insufficiency; J45.20 Mild intermittent asthma, uncomplicated; Z95.0 Presence of cardiac pacemaker; Z87.19 Personal history of other diseases of the digestive system; Z86.73 Personal history of transient ischemic attack (TIA), and cerebral infarction without residual deficits; Z79.890 Hormone replacement therapy; Z79.899 Other long term (current) drug therapy; Z79.82 Long term (current) use of aspirin
CPT/HCPCS: 71046; 80053; 81001; 85025; 94760; 96360; 99283

== ENCOUNTER 2025-07-28 16:48 | Emergency (ER) | payer MEDICARE, OTHER, SELFPAY ==
[2025-07-28] VITALS (7 sets, daily range): BP systolic 143–164; BP diastolic 74–84; PULSE 68–80; RESP 16–18; TEMP 36.1–36.6; O2SAT 95–100
--- NOTE | 2025-07-28 18:09 | EDS_ITS ---
HPI History of Present Illness Chief Complaint: Shortness of Breath Informant: patient and other (To female caregivers) Limited: dementia Narrative Narrative: 89-year-old female was brought to the emergency room for shortness of breath. Patient has a history of dementia cannot provide some information and caregivers give more detailed history. Is reported the patient has had a cough for about 5 weeks. She was seen in the emergency room 2 weeks ago. She has not followed up with anybody since that time. Today she came out of the bathroom having shortness of breath and worsening cough. Caregiver states that her blood pressure was significantly elevated in the 1 8190 systolic range and then came down as she improved to around 140. They have not noted any fever. The cough is semiproductive more of a clear light yellow. No leg swelling. She has no known lung issues. It was felt that her cough 2 weeks ago was viral in nature. She does have a pacemaker and does not have a history of CHF. In getting her into a gown for caregivers and nursing note a large area of purple ecchymosis in the left CVA region and in the left mid axillary breast region. Patient notes that this area is not really tender. There was no reported falls or known trauma. [facility] Medical History Flu vaccine need Excoriation (skin-picking) disorder History of UTI Dementia with agitation Dementia Right clavicle fracture Chronic anticoagulation Fall Fracture of right superior pubic ramus Fracture of right inferior pubic ramus Pacemaker lead malfunction Flu vaccine need Distal radius fracture Open wound of left ring finger Anxiety and depression GI bleed Parathyroid disorder Hearing problem Goiter Carpal tunnel syndrome Allergies Iron deficiency anemia Hyperlipidemia Hypertension Hypothyroidism Atrial fibrillation Right hemiparesis CVA (cerebral vascular accident) Rheumatoid arthritis Stroke/cerebrovascular accident Wears glasses 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 Arthritis History of GI bleed History of IBS Non-smoker History of stress test Cardiology follow-up encounter BRBPR (bright red blood per rectum) Microscopic colitis Osteoarthritis Vertigo Persistent atrial fibrillation Concussion Closed head injury Hypothyroidism Fall Periorbital edema of left eye Fracture of metacarpal base, first, right hand, closed Personal history of colonic polyps Complete heart block Sick sinus syndrome Nonrheumatic mitral valve insufficiency Anemia Asthma Essential (primary) hypertension Thyroid storm Hyperlipidemia Ulcer of right lower extremity with fat layer exposed Venous insufficiency Malnutrition Delayed wound healing Edema leg Ulcer of left lower extremity with fat layer exposed Mild intermittent asthma Microscopic colitis Acquired hypothyroidism Home Medications Medication Instructions Recorded Last Taken Type [id number] 0.4 mg-calcium 162 1 ea PO DAILY suppl ement 06/03/19 12/15/23 History mg-iron 18 [id number] tablet ascorbic acid (vitamin C) 1,000 mg 1 g PO DAILY supple ment #1 TAB 12/15/23 12/15/23 Rx tablet (Vitamin C) Handicap Placard #1 ea 07/27/24 Unknown Rx aspirin 81 mg tablet,delayed 81 mg PO QDAY 01/02/25 Un known History release (Adult Aspirin Regimen) levothyroxine 75 mcg tablet 75 mcg PO 2XW thyroid #60 tabs 02/04/25 Unknown Rx lisinopril 2.5 mg tablet 2.5 mg PO QHS #90 tabs 02/04 Unknown Rx Held on 06/06/25. Instructions: Home Medication placed on hold at Doctor's office escitalopram oxalate 5 mg tablet 5 mg PO DAILY anxiety #90 tabs 03/13/25 Unknown Rx levothyroxine 50 mcg tablet 50 mcg PO 5XW thyroid #90 tabs 05/15/25 Unknown Rx pantoprazole 40 mg tablet,delayed 40 mg PO DAILY #90 t abs 05/15/25 Unknown Rx release acetaminophen 500 mg tablet 1,000 mg PO 0900,1500,2000 pain 06/03/25 Unknown History 1-10 donepezil 5 mg tablet 5 mg PO QHS memory #90 tabs 07/02/25 Unknown Rx furosemide 40 mg tablet (Lasix) 40 mg PO DAILY 5 days #5 tabs 07/28/25 Unknown Rx Allergy/AdvReac Type Severity Reaction Status Date / Time Environmental Allergies: Allergy Mild sneezing Verified 07/28/25 16:49 Uncoded latex AdvReac Itching Verified 07/28/25 16:49 sulfamethoxazole (From AdvReac Nausea Verified 07/28/25 16:49 Bactrim) trimethoprim (From Bactrim) AdvReac Nausea Verified 07/28/25 16:49 Family History Father CAD (coronary artery disease) Brother Cancer Leukemia Brother Epilepsy Mother Colon cancer Other CVA (cerebral vascular accident) Diabetes Surgical History Status post placement of cardiac pacemaker H/O thyroidectomy History of knee replacement History of right hip replacement History of permanent cardiac pacemaker placement H/O thyroidectomy Social History household members: none and other details: 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 who 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 every day housing: house number of children: 3 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 Smoking Status: Never smoker alcohol intake: never substance use type: does not use caffeine: Yes Type: tea Number of servings: 1 what type of physical activity do you participate in: other details: [employer] ROS ED Constitutional Constitutional ED: Denies chills, fever(s) or weight loss Eyes Eyes: Denies change in vision or diplopia ENT ENT ED: Denies ear pain, rhinorrhea or sore throat Cardiovascular Cardiovascular: Denies chest pain, orthopnea, palpitations or racing heartbeat Respiratory/Chest Respiratory/Chest: Reports cough, dyspnea, dyspnea on exertion and sputum; Denies orthopnea Gastrointestinal Gastrointestinal: Denies abdominal pain, diarrhea, nausea or vomiting Genitourinary Genitourinary ED: Denies dysuria, hematuria or urinary frequency Musculoskeletal Musculoskeletal: Denies arthralgias, back pain, myalgias or neck pain Integumentary Reports other Details: Flank ecchymosis chest wall ecchymosis ; Denies abscess or rash Neurologic Neurologic: Denies headache(s) or weakness Psychiatric Psychiatric: Denies anxiety, depression, suicidal ideation or suicidal thoughts Endocrine Endocrinology: Denies polydipsia, polyphagia or polyuria Allergic/Immunologic Allergic/Immunologic ED: Denies mouth swelling, tongue swelling or urticaria EXAM Physical Exam Const Vital Signs: 07/28/25 16:50 07/28/25 17:59 07/28/25 17:59 Temperature 97 F L Temperature Source Temporal Pulse Rate 70 Respiratory Rate 18 Respiratory Effort Respiratory Depth Respiratory Pattern Blood Pressure 158/74 H Blood Pressure Mean 102 Pulse Ox 100 96 96 Oxygen Delivery Method Room Air Room Air 07/28/25 18:00 07/28/25 20:00 07/28/25 22:00 Temperature Temperature Source Pulse Rate 70 68 Respiratory Rate 18 18 Respiratory Effort Short of Breath Respiratory Depth Shallow Respiratory Pattern Normal Blood Pressure 162/74 H 164/84 H Blood Pressure Mean 103 110 Pulse Ox 100 95 Oxygen Delivery Method Room Air Room Air Room Air 07/28/25 22:35 Temperature 98 F Temperature Source Pulse Rate 80 Respiratory Rate 16 Respiratory Effort Respiratory Depth Respiratory Pattern Blood Pressure 143/77 H Blood Pressure Mean 99 Pulse Ox 99 Oxygen Delivery Method Positive well nourished and well developed General Appearance ED: well developed HEENT Reports normocephalic, head/scalp atraumatic and moist mucous membranes Eyes PERRL and EOMs intact bilaterally Neck no lymphadenopathy, supple and no JVD Resp Resp Narrative: Normal respiratory effort. There is rhonchorous lung sounds bilaterally with few Rales at bases and a moist cough Cardio regular rate, regular rhythm and no murmurs GI normal to inspection, nondistended, normoactive bowel sounds and non-tender Palpation: soft Back/Spine no CVA tenderness and normal ROM Extremity normal to inspection General Extremety ED: Negative for edema General Extremity: Negative for edema Neuro CN's II-XII intact bilaterally Neuro Narrative: Patient reported at baseline mental status by caregivers Sensorium / Orientation: alert Motor Exam: strength 5/5 throughout Psych mental status grossly normal Mood & Affect: Negative for depressed or tearful Skin no rashes or lesions noted and no wounds MDM MDM MDM Narrative Medical decision making narrative: Differential diagnosis includes pneumonia CHF pleural effusions rib trauma retroperitoneal hematoma anemia ACS viral syndrome Caregivers were wishing to have a urine specimen obtained because they have concerns with her urine. I did not initially order 1 that was not expressed to me but I went ahead and ordered 1 which is normal. Patient white count 7.8 hemoglobin 11.6 platelet count 235. 2 sets of troponins are 22 and 25 normal creatinine sodium 132 potassium 4.3. proBNP is 2896. CT of the chest and abdomen pelvis does not show an obvious retroperitoneal bleed or solid organ injury. There are some rib fractures on the right but her hematoma/ecchymosis is on the left. There are small bilateral pleural effusions and small pericardial effusion. Clinically based on her lung sounds I felt that this was more likely to be CHF and supported by the proBNP elevation and the small effusions. She states she is not currently on a diuretic and I will write for Lasix for the next 5 days. I would like her to be seen and reassessed after that return if worsening or concerns History & Record Review Discussion w/independent historian: Patient and Other (In-home caregivers) Additional record(s) reviewed:: Prior ED visit and Prior labs Lab Data Attestation: I reviewed the patient's lab results. Labs: Laboratory Results - last 24 hr 07/28/25 07/28/25 07/28/25 17:57 20:29 20:44 WBC 7.8 RBC 3.75 L Hgb 11.6 L Hct 35.2 L MCV 93.9 MCH 30.9 MCHC 33.0 RDW Std Deviation 47.5 H RDW Coeff of Radha 13.9 Plt Count 235 MPV 9.9 Immature Gran % (Auto) 0.800 Neut % (Auto) 71.8 H Lymph % (Auto) 11.1 L [place] % (Auto) 11.0 H Eos % (Auto) 4.3 Baso % (Auto) 1.0 Absolute Neuts (auto) 5.6 Absolute Lymphs (auto) 0.87 Nucleated RBC % 0 Sodium 132 L Potassium 4.3 Chloride 94 L Carbon Dioxide 27.1 Anion Gap 11 BUN 9 Creatinine 0.78 Est GFR (MDRD) Non-Af 72 BUN/Creatinine Ratio 11.7 Glucose 92 Calcium 9.1 Troponin T High Sens 22 H Troponin T Hi Sens 2 Hr 25 H NT pro BNP II 2896 H Urine Color Yellow Urine Clarity Clear Urine pH 8.0 Ur Specific [place] 1.010 Urine Protein 30 H Urine Glucose (UA) Normal Urine Ketones Negative Urine Occult Blood Negative Urine Nitrite Negative Urine Bilirubin Negative Urine Urobilinogen Normal Ur Leukocyte Esterase 25 H Urine RBC 0 SEEN Urine WBC 0-5 SEEN Ur Squamous Epith Cells 0-5 SEEN Urine Bacteria 0 SEEN Urine Mucus 0 SEEN Radiography Diagnostic Testing: Clinical Impression(s) from Imaging Studies Chest/Abdomen/Pelvis CT 07/28/25 19:37 IMPRESSION: Mild bending of the right posterior ninth through twelfth ribs, which may repre sent acute nondisplaced fractures versus chronic healing fractures; correlation with point tenderness is recommended. Cardiomegaly with a small pericardial effusion measuring up to 5 mm. Small bilateral pleural effusions; the right effusion has irregular margins that may suggest loculation. Diffuse osseous demineralization. Afxesavh-qj-yeichw atherosclerosis without aneurysm. Colonic diverticulosis without evidence of diverticulitis. Left renal simple cysts. No solid-organ injury identified in the abdomen or pelvis. Reading Location: [address] EKG Initial EKG: Attestation: I personally reviewed and interpreted this EKG as follows: Comments: Paced rhythm with ectopy is noted ventricular rate of 81 bpm Discharge Plan Triage Chief Complaint: Shortness of Breath ED Provider: Andrei Ivory Dx/Rx/DC Orders Clinical Impression: Acute dyspnea, CHF (congestive heart failure), Cough, Bilateral pleural effusion Instructions: ED Heart Failure, Congestive (CHF) Prescriptions: New furosemide [Lasix] 40 mg tablet 40 mg PO DAILY 5 Days Qty: 5 0RF No Action (DME) Handicap Placard See Rx Instructions .ROUTE .MEDSUPPLY Qty: 1 0RF Rx Instructions: As directed, length of time 3 years aspirin [Adult Aspirin Regimen] 81 mg tablet,delayed release (DR/EC) 81 mg PO QDAY acetaminophen 500 mg tablet 1,000 mg PO 0900,1500,2000 [id number]-lutein 1 EACH tablet 1 ea PO DAILY Patient Comments: vitamin ascorbic acid (vitamin C) [Vitamin C] 1,000 mg tablet 1 g PO DAILY Qty: 1 0RF Rx Instructions: Give this once a day when Ferrous sulfate given. lisinopril 2.5 mg tablet 2.5 mg PO QHS Qty: 90 2RF levothyroxine 75 mcg tablet 75 mcg PO 2XW Qty: 60 1RF escitalopram oxalate 5 mg tablet 5 mg PO DAILY Qty: 90 1RF levothyroxine 50 mcg tablet 50 mcg PO 5XW Qty: 90 1RF pantoprazole 40 mg tablet,delayed release (DR/EC) 40 mg PO DAILY Qty: 90 0RF donepezil 5 mg tablet 5 mg PO QHS Qty: 90 3RF Primary Care Provider: Elizabeth Cai Referrals: Elizabeth Cai MD [Primary Care Provider, Internal Medicine] Referral Note: in 5 days or follow up with your reflesher Print Language: Nepali Disposition Disposition: Home, Self Care Discharge Date/Time: 07/28/25 22:36
--- OUTSIDE RECORDS SUMMARY | 2025-07-28 18:13 | XMS RPT_ITS | CCD ---
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 Rod Ochoa Chi Primary Care Provider Dr. Rod Ochoa Chi Referring Provider Bing Cooper Attending Provider Unavailable Aroldo LEE, ELIJAH Dave Attending Provider Dr. Rod Ochoa Chi Primary Care Provider Dr. Zion Perrin Emergency Provider Dr. Nehemias Hernandez Admit Provider Dr. Nehemias Hernandez Attending Provider Dr. Nehemias Hernandez Other Provider Dr. Mina Dorman Attending Provider Unavailable Dr. Mina Dorman Other Provider Unavailable Dr. Rod Ochoa Chi Referring Provider Dr. Curtis Ordonez Attending Provider Dr. Elizabeth Cai Attending Provider Dr. Elizabeth Cai Primary Care Provider Dr. Elizabeth Cai Referring Provider Dr. Billie Ro Attending Provider Dr. Elizabeth Cai Primary Care Provider Dr. Elizabeth Cai Referring Provider Dr. Darien Corona Attending Provider Dr. Fei Rivera Attending Provider Dr. Elizabeth Cai Attending Provider [phone] Dr. Elizabeth Cai Primary Care Provider [phone] Dr. Elizabeth Cai Referring Provider [phone] Dr. Darien Corona Attending Provider [phone] Fei Rivera Attending Provider [phone] MARY Guardado Attending Provider [phone] Dr. Fei Rivera Referring Provider [phone] Aroldo CURING ROOM WORKER, CURING ROOM WORKER-C Jordana Attending Provider Dr. Fei Rivera Referring Provider [phone] Fei Rivera Other Provider Dr. Callum Urrutia Referring Provider Miguel, Dr. Enamorado Admit Provider Bing Cooper Attending Provider Unavailable Dr. Elizabeth aCi Primary Care Provider [phone] Dr. Elizabeth Cai Referring Provider [phone] Dr. Darien Corona Attending Provider [phone] Fei Rivera Attending Provider [phone] MARY Guardado Attending Provider [phone] Dr. Fei Rivera Referring Provider [phone] Aroldo LEE, JESUS-C Jordana Attending Provider Dr. Elizabeth Cai Attending Provider [phone] Dr. Fei Rivera Other Provider Miguel, Dr. Enamorado Admit Provider Bing Cooper Attending Provider Unavailable Dr. Feng Loomis Emergency Provider [phone] MD Miguel Angel Arreola Attending Provider Dr. Edgar Lopez Admit Provider Unavailable Dr. Edgar Lopez Attending Provider Unavailab Dr. Edgar Mccoy Other Provider Unavailable Dr. Liliam Barrera Other Provider Leif, Dr. Lee Other Provider Dr. Liliam Barrera Attending Provider Dr. Elizabeth Cai Primary Care Provider Dr. Elizabeth Cai Referring Provider Miguel, Dr. Enamorado Attending Provider Sementi, Dr. Daniella Grajeda Admit Provider Sementi, Dr. Daniella Grajeda Attending Provider Sementi, Dr. Daniella Grajeda Other Provider Dr. Elizabeth Cai Primary Care Provider Migule, Dr. Enamorado Attending Provider Miguel, Dr. Enamorado Referring Provider [phone] Elizabeth Cai Referring Provider [phone] Aroldo LEE, CURING ROOM WORKERVernell Dave Attending Provider Dr. Elizabeth Cai Attending Provider [phone] Miguel, Dr. Enamorado Other Provider Miguel, Dr. Enamorado Admit Provider Bing Cooper Attending Provider Unavailable Dr. Feng Loomis Emergency Provider [phone] MD Miguel Angel Arreola Attending Provider Dr. Edgar Lopez Admit Provider Unavailable Dr. Edgar Lopez Attending Provider Unavail Dr. Edgar Mccoy Other Provider Unavailable Dr. Liliam Barrera Other Provider Dr. Rosa Yadav Other Provider Dr. Liliam Barrera Attending Provider Sementi, Dr. Daniella Grajeda Admit Provider Sementi, Dr. Daniella Grajeda Attending Provider Semenphuong, Dr. Daniella Grajeda Other Provider Trell RUCKER, Dr. Johnson Primary Care Provider Trell RUCKER, Dr. Johnson Attending Provider [phone] Trell RUCKER, Dr. Johnson Referring Provider [phone] Jomar Guardado Attending Provider [phone] Trell RUCKER, Dr. Johnson Primary Care Provider Trell RUCKER, Dr. Johnson Attending Provider [phone] Trell RUCKER, Dr. Johnson Referring Provider [phone] Funmilayo Hamlin Attending Provider [phone]) Jomar Guardado Referring Provider [phone] Ria RUCKER, Dr. Bermudez Attending Provider [phone] Miguel RUCKER, Dr. Enamorado Attending Provider [phone] Miguel RUCKER, Dr. Enamorado Referring Provider [phone] Trell RUCKER, Dr. Johnson Primary Care Provider Trell RUCKER, Dr. Johnson Referring Provider [phone] Jomar Guardado Attending Provider [phone] Trell RUCKER, Dr. Johnson Attending Provider [phone] Ungerer CURING ROOM WORKER-C, Capri Attending Provider [phone] Trell RUCKER, Dr. Johnson Primary Care Provider Miguel RUCKER, Dr. Enamorado Attending Provider [phone] Trell RUCKER, Dr. Johnson Referring Provider [phone] Ungerer CURING ROOM WORKER-C, Capri Referring Provider [phone] Trell RUCKER, Dr. Johnson Primary Care Provider Miguel RUCKER, Dr. Enamorado Attending Provider [phone] Miguel RUCKER, Dr. Enamorado Referring Provider [phone] Trell RUCKER, Dr. Efewongbe Primary Care Physician Miguel RUCKER, Dr. Enamorado Attending Physician Trell RUCKER, Dr. Johnson Referring Provider [phone] Genna CURING ROOM WORKERCapri Matt Attending Physician Trell RUCKER, Dr. Johnson Attending Physician [phone] Oleghe, Efewongbe Primary Care Unavailable Oleghe, Efewongbe Referring Unavailable Funmilayo Hamlin Attending Unavail able Oleghe, Efewongbe Attending Unavailable Oleghe, Efewongbe Referring Unavailable Oleghe, Efewongbe Primary Care Unavailable Oleghe, Efewongbe Primary Care Unavailable Miguel, [place] Attending Unavailable Oleghe, Efewongbe Attending Unavailable Oleghe, Efewongbe Referring Unavailable Oleghe, Efewongbe Primary Care Unavailable Jordana Kendrick Consulting Unavailable Capri [place] Attending Unavailable Oleghe, Efewongbe Primary Care Unavailable Capri [place] Referring Unavailable Oleghe, Efewongbe Attending Unavailable Oleghe, Efewongbe Referring Unavailable Oleghe, Efewongbe Primary Care Unavailable Oleghe, Efewongbe Attending Unavailable Oleghe, Efewongbe Primary Care Unavailable Oleghe, Efewongbe Referring Unavailable Oleghe, Efewongbe Primary Care Unavailable Miguel, [place] Attending Unavailable Oleghe, Efewongbe Attending Unavailable Oleghe, Efewongbe Primary Care Unavailable Oleghe, Efewongbe Referring Unavailable Oleghe, Efewongbe Primary Care Unavailable Miguel, [place] Referring Unavailable Miguel, [place] Attending Unavailable Oleghe, Efewongbe Primary Care Unavailable Miguel, [place] Referring Unavailable Miguel, Fei Attending Unavailable Aidan Rollins Attending Unavailable Oleghe, Efewongbe Primary Care Unavailable Jomar Guardado Referring Unavailable Oleghe, Efewongbe Primary Care Unavailable Capri [place] Attending Unavailable Oleghe, Efewongbe Referring Unavailable Oleghe, Efewongbe Attending Unavailable Oleghe, Efewongbe Referring Unavailable Oleghe, Efewongbe Primary Care Unavailable Oleghe, Efewongbe Primary Care Unavailable Miguel, Fei Referring Unavailable Miguel, [place] Attending Unavailable Oleghe, Efewongbe Referring Unavailable Oleghe, Efewongbe Primary Care Unavailable Jomar Guardado Attending Unavailable Oleghe, Efewongbe Attending Unavailable Oleghe, Efewongbe Referring Unavailable Oleghe, Efewongbe Primary Care Unavailable Oleghe, Efewongbe Attending Unavailable Oleghe, Efewongbe Referring Unavailable Oleghe, Efewongbe Primary Care Unavailable Oleghe, Efewongbe Primary Care Unavailable Jomar Guardado Attending Unavailable Jomar Guardado Referring Unavailable Ungerer, Capri Attending Unavailable Oleghe, Efewongbe Primary Care Unavailable Ungerer, [place] Referring Unavailable Oleghe, Efewongbe Attending Unavailable Oleghe, Efewongbe Primary Care Unavailable Oleghe, Efewongbe Referring Unavailable Oleghe, Efewongbe Primary Care Unavailable Oleghe, Efewongbe Referring Unavailable Jomar Guardado Attending Unavailable Oleghe, Efewongbe Primary Care Unavailable Oleghe, Efewongbe Referring Unavailable Jomar Guardado Attending Unavailable Allergies Allergy Classification Reported Allergen(s) Allergy Type Date of Onset Reaction(s) Facility (20 sources) Latex Propensity to adverse reactions 08-17-20 21 Itching (20 sources) Sulfamethoxazole Drug Allergy 08-17-20 21 Nausea (20 sources) Trimethoprim Drug Allergy 08-17-20 21 Nausea (20 sources) Environmental Allergies: Uncoded; Translations: [Environmental Allergies: Uncoded] Allergy to substance 10-07-19 23 sneezing (1 source) Latex Drug allergy (disorder) 06-03-20 Repository (1 source) Sulfamethoxazole Drug Allergy 06-03-20 Repository (1 source) Trimethoprim Drug Allergy 06-03-20 Repository Medications Current Medications Medication Drug Class(es) Dates Sig (Normalized) Sig (Original) acetaminophen 500 mg oral tablet (20 sources) Start: 06-03-2025 Start: 11-07-2024 End: 06-03-2025 Acetaminophen 500 mg tablet Discontinued 1000 mg PO 0900,1500,2000 as needed for pain -November 075 11:42am June 03, 2025 11:19am Start: 11-29-2023 End: 11-07-2024 Acetaminophen 500 mg Tablet Discontinued 1000 mg PO 0900,1500,2000 1 0 December 15, 2023 12:00am November 07, 2024 11:44am pain 1-10 Start: 11-29-2023 End: 12-15-2023 Start: 10-07-2022 End: 11-29-2023 take 2 capsules by mouth once as needed for pain Acetaminophen (Tylenol) 325 mg capsule Discontinued 650 mg PO ONCE as needed for Pain October 07, 2022 1:00am November 29, 2023 4:26pm On Hold: at discharge from rehab as needed for pain Start: 10-07-2022 End: 11-29-2023 Start: 06-03-2019 End: 06-26-2019 take 2 tablets by mouth every six hours as needed for pain Acetaminophen 325 MG tablet Discontinued 650 mg PO EVERY 6 HOURS NEEDED as needed for Pain Score 1-5/10 0 June 03, 2019 12:00am June 26, 2019 8:50pm Start: 06-03-2019 End: 06-26-2019 ascorbic acid 1000 mg oral tablet (10 sources) Vitamin C Start: 12-15-2023 take 1 g by mouth once daily aspirin 81 mg delayed release oral tablet (20 sources) Platelet Aggregation Inhibitor, Nonsteroidal Anti-inflammatory Drug Start: 01-02-2025 take 1 tablet by mouth once daily Start: 04-25-2021 End: 05-13-2021 take 1 tablet by mouth once daily Aspirin 81 mg tablet,chewable Discontinued 81 mg PO DAILY@0800 April 26, 2021 12:04am May 13, 2021 9:15pm blood thinner docusate calcium 240 mg oral capsule (1 source) Start: 10-07-2022 take 240 mg by mouth once daily Docusate Calcium Active 240 MG PO DAILY October 07, 2022 12:00am Handicap Placard (9 sources) Start: 07-27-[address] Active 0 .ROUTE .MEDSUPPLY 1 0 July 27, 2024 1:00am Other reduced mobility As directed, length of time 3 years Start: 07-27-[address] Active 0 .ROUTE .MEDSUPPLY 1 July 27, 2024 1:00am As directed, length of time 3 years melatonin 10 mg oral tablet (20 sources) Start: 08-14-2022 take 10 mg by mouth at bedtime Melatonin Active 10 MG PO AT BEDTIME August 14, 2022 12:00am Start: 06-03-2019 End: 04-14-2020 take 1 tablet by mouth at bedtime as needed Melatonin 3 MG tablet Discontinued 3 mg PO AT BEDTIME NEEDED as needed for Insomnia 0 June 03, 2019 12:00am April 14, 2020 1:31pm Start: 06-03-2019 End: 04-14-2020 Xk-Xne-Vj-Yo-Qp-Ejgfurd-Lute in (20 sources) Start: 06-03-2019 Cb-Fpl-To-Wv-Of-Dnefgsf-Lute in Active 1 EACH PO DAILY June 03, 2019 10:22am Start: 06-03-2019 Do-Vcr-My-Ca-F u-Zzvukmt-Xqyent Active 1 EACH PO DAILY June 03, 2019 11:22am Start: 10-31-2014 End: 06-03-2019 Xj-Ecb-Zg-Dy-Dq-Jxrqdzq-Lute in Discontinued 1 EACH PO DAILY 0 October 31, 2014 9:36am June 03, 2019 10:22am Start: 10-31-2014 End: 06-03-2019 Rj-Ejv-Pw-Zc-Ue-Yakixci-Lute in Discontinued 1 EACH PO DAILY 0 October 31, 2014 10:36am June 03, 2019 11:22am Vt-Jba-Fi-Ht-Ax-Apdwzlr-Lute in 1 EACH tablet (18 sources) Start: 06-03-2019 take 1 tablet by mouth once daily Start: 06-03-2019 take 1 tablet by jonnathan th once daily Zq-Pdx-Jn-Hh-Ni-Vwcvfyz-Lutein 1 EACH ta blet Active 1 NMA PO DAILY June 03, 2019 11:22am supplement Start: 06-03-2019 take 1 tablet by jonnathan th once daily Nk-Wpp-Dt-Uy-Ue-Pkizfyu-Lutein 1 EACH ta blet Active 1 NMA PO DAILY June 03, 2019 11:22am Start: 10-31-2014 End: 06-03-2019 take 1 tablet by mouth once daily Ua-Kki-Vq-Au-Qn-Erdxomo-Lutein 1 EACH ta blet Discontinued 1 NMA PO DAILY 0 0 October 31, 2014 10:36am June 03, 2019 11:22am Start: 10-31-2014 End: 06-03-2019 take 1 tablet by mouth once daily Jh-Tny-Ul-Gb-Ox-Iaxufxc-Lutein 1 EACH ta blet Discontinued 1 NMA PO DAILY 0 October 31, 2014 10:36am June 03, 2019 11:22am Sod Sulf-Pot Chloride-Mag Sulf (1 source) Start: 11-01-2022 take 1.479 tablets by mouth once Sod Sulf-Pot Chloride-Mag Sulf (Sutab) 1.479-0.188- 0.225 gram tablet Active 0 PO per package directions November 01, 2022 12:00am PO PER PKG DIR (20 sources) Start: 12-15-2023 Start: 11-29-2023 Start: 06-27-2023 Start: 03-25-2023 Start: 09-16-2021 End: 09-20-2022 Start: 06-03-2019 Start: 10-31-2014 End: 06-03-2019 Start: 10-28-2014 End: 10-31-2014 Start: 04-02-2014 End: 10-31-2014 Start: 04-02-2014 End: 10-31-2014 Start: 04-02-2014 End: 10-31-2014 Completed/Discontinued Medications Medication Drug Class(es) Dates Sig (Normalized) Sig (Original) acetaminophen 325 mg / HYDROcodone bitartrate 5 mg oral tablet (20 sources) Opioid Agonist Start: 06-10-2020 End: 06-13-2020 Hydrocodone-Acetami nophen 1 TABLET tablet Discontinued 1 {tbl} PO EVERY 6 HOURS NEEDED as needed for Pain 10 3 June 10, 2020 June 12, 2020 12:00am June 13, 2020 12:03am Lumbar contusion Contusion of lower back and pelvis, initial encounter Start: 06-10-2020 End: 06-13-2020 Start: 06-10-2020 End: 06-13-2020 take 1 tablet by mouth every six hours as needed Hydrocodone-Acetaminophen Discontinued 1 TABLET PO EVERY 6 HOURS NEEDED 10 June 10, 2020 June 13, 2020 12:03am Start: 01-14-2018 End: 06-29-2018 Hydrocodone-Acetaminophen 1 TABLET tablet Discontinued 1 {tbl} PO EVERY 6 HOURS NEEDED as needed for Pain 12 2 January 14, 2018 12:27pm June 29, 2018 1:49pm Left elbow pain Pain in left elbow Start: 01-14-2018 End: 06-29-2018 Start: 01-14-2018 End: 06-29-2018 take 1 tablet by mouth every six hours as needed Hydrocodone-Acetaminophen Discontinued 1 TABLET PO EVERY 6 HOURS NEEDED 12 2 January 14, 2018 12:27pm June 29, 2018 1:49pm Start: 01-30-2016 End: 01-12-2017 Hydrocodone-Acetaminophen 1 TABLET tablet Discontinued 1 - 2 {tbl} PO EVERY 4 HOURS NEEDED as needed for Pain January 30, 2016 12:00am January 12, 2017 1:30pm Start: 01-30-2016 End: 01-12-2017 Start: 01-30-2016 End: 01-12-2017 take 1 tablet by mouth every four hours as needed Hydrocodone-Acetaminophen Discontinued 1 - 2 TABLET PO EVERY 4 HOURS NEEDED January 30, 2016 12:00am January 12, 2017 1:30pm Start: 11-11-2013 End: 04-02-2014 Hydrocodone-Acetaminophen (V icodin 5-300 Mg Tablet) 1 EACH tablet Discontinued 1 - 2 {tbl} PO EVERY 4 HOURS NEEDED as needed for Pain November 11, 2013 1:00am April 02, 2014 3:25pm Start: 11-11-2013 End: 04-02-2014 albuterol 0.83 mg/ml inhalation solution (20 sources) beta2-Adrenergic Agonist Start: 10-28-2014 End: 01-19-2018 take 2.5 mg by inhalation every six hours as needed for wheezing Albuterol Sulfate 2.5 MG/3 ML solution for nebulization Discontinued 2.5 mg INHALATION EVERY 6 HOURS NEEDED as needed for Sob &/Or Wheezing October 28, 2014 1:00am January 19, 2018 2:00pm apixaban 2.5 mg oral tablet (20 sources) Factor Xa Inhibitor Start: 09-20-2022 End: 01-16-2024 take 1 tablet by mouth twice daily Apixaban (Eliquis) 2.5 mg tablet Discontinued 2.5 mg PO TWICE A DAY 180 3 November 24, 2022 11:30am January 16, 2024 7:55pm blood thinner Start: 09-16-2021 Eliquis Active 5 MG TWICE A DAY September 16, 2021 3:40pm Start: 09-16-2021 End: 09-20-2022 Eliquis 2.5 mg Discontinued 2.5 mg TWICE A DAY September 16, 2021 1:00am September 20, 2022 3:25pm a-fib/clot prevention Start: 09-16-2021 End: 09-20-2022 Eliquis 2.5 mg Discontinued 2.5 mg TWICE A DAY September 16, 2021 1:00am September 20, 2022 3:25pm Start: 09-16-2021 End: 09-20-2022 Eliquis Discontinued 2.5 MG TWICE A DAY September 16, 2021 1:00am September 20, 2022 3:25pm Start: 09-16-2021 End: 09-20-2022 Eliquis Discontinued 2.5 MG TWICE A DAY September 16, 2021 12:00am September 20, 2022 2:25pm Start: 09-16-2021 Eliquis Active 5 MG TWICE A DAY September 16, 2021 12:00am Start: 09-16-2021 Eliquis Active 5 MG TWICE A DAY September 16, 2021 1:00am Start: 08-17-2021 End: 08-17-2021 take 1 tablet by mouth twice daily Apixaban (Eliquis) 2.5 mg tablet Discontinued 2.5 mg PO TWICE A DAY August 17, 2021 1:00am August 17, 2021 2:35pm Start: 05-13-2021 End: 08-17-2021 take 1 tablet by mouth twice daily Apixaban (Eliquis) 5 mg Tablet Discontinued 5 mg PO TWICE A DAY 60 30 0 May 13, 2021 12:00am August 17, 2021 2:16pm Start: 04-25-2021 End: 05-13-2021 take 2 tablets by mouth twice daily Apixaban 2.5 MG tablet Discontinued 5 mg PO TWICE A DAY 120 30 0 April 25, 2021 10:21pm May 13, 2021 9:15pm blood thinner Start: 04-25-2021 End: 05-13-2021 Start: 04-25-2021 End: 05-13-2021 take 5 mg by mouth twice daily Apixaban Discontinued 5 MG PO TWICE A DAY 120 30 April 25, 2021 10:21pm May 13, 2021 9:15pm Start: 09-29-2017 End: 06-03-2019 take 1 tablet by mouth twice daily Apixaban 2.5 mg tablet Discontinued 2.5 mg PO TWICE A DAY 180 3 September 29, 2017 4:23pm June 03, 2019 11:22am Start: 09-29-2017 End: 09-29-2017 take 2.5 mg by mouth twice daily Apixaban 5 MG tablet Discontinued 2.5 mg PO TWICE A DAY September 29, 2017 4:14pm September 29, 2017 4:25pm Start: 09-29-2017 End: 09-29-2017 take 2.5 mg by mouth twice daily Apixaban Discontinued 2.5 MG PO TWICE A DAY September 29, 2017 4:14pm September 29, 2017 4:25pm Start: 01-12-2017 End: 09-29-2017 take 2 tablets by mouth twice daily Apixaban 5 MG tablet Discontinued 10 mg PO TWICE A DAY January 12, 2017 1:32pm September 29, 2017 4:16pm Start: 01-12-2017 End: 09-29-2017 take 10 mg by mouth twice daily Apixaban Discontinued 10 MG PO TWICE A DAY January 12, 2017 1:32pm September 29, 2017 4:16pm Start: 10-30-2014 End: 09-29-2017 take 1 tablet by mouth twice daily Apixaban (Eliquis) 5 MG tablet Discontinued 5 mg PO TWICE A DAY 60 3 October 30, 2014 1:00am January 12, 2017 1:32pm atorvastatin 40 mg oral tablet (20 sources) HMG-CoA Reductase Inhibitor Start: 04-25-2021 End: 08-17-2021 take 1 tablet by mouth at bedtime Atorvastatin 40 mg tablet Discontinued 40 mg PO AT BEDTIME 0 May 13, 2021 9:18pm August 17, 2021 2:18pm Cholesterol Start: 04-25-2021 End: 08-17-2021 bacitracin zinc 0.5 unt/mg topical ointment (20 sources) Start: 03-10-2014 End: 04-02-2014 Bacitracin Zinc 1 APPLIC Tube Discontinued 1 NMA TOPICAL DAILY 1 0 March 10, 2014 12:00am April 02, 2014 3:25pm 30gm tube benzonatate 100 mg oral capsule (17 sources) Non-narcotic Antitussive Start: 09-02-2023 End: 09-15-2023 take 1 capsule by mouth three times daily Benzonatate 100 mg capsule Discontinued 100 mg PO THREE TIMES A DAY 30 0 September 02, 2023 1:00am September 15, 2023 10:14am Biotin (20 sources) Start: 03-25-2023 End: 01-16-2024 take 1 mg by mouth once daily Biotin 500 mcg capsule Discontinued 1 mg PO DAILY March 25, 2023 12:00am January 16, 2024 7:54pm supplement Start: 03-25-2023 End: 01-16-2024 take 1 mg by mouth once daily Biotin 500 mcg capsule Discontinued 1 mg PO DAILY March 25, 2023 12:00am January 16, 2024 7:54pm Start: 03-25-2023 take 1 mg by mouth once daily Biotin Active 1 MG PO DAILY March 25, 2023 12:00am Start: 06-29-2018 End: 08-17-2021 take 1 capsule by mouth once daily Biotin 1 mg capsule Discontinued 1 mg PO DAILY June 29, 2018 12:00am August 17, 2021 2:18pm supplement Start: 04-02-2014 End: 10-31-2014 Biotin 300 MCG tablet Discon tinued 500 ug PO DAILY April 02, 2014 12:00am October 31, 2014 10:35am Start: 04-02-2014 End: 10-31-2014 take 500 ug by mouth once daily Biotin Discontinued 50 0 MCG PO DAILY April 02, 2014 12:00am October 31, 2014 10:35am Start: 04-02-2014 End: 10-31-2014 take 500 ug by mouth once daily Biotin Discontinued 50 0 MCG PO DAILY April 01, 2014 11:00pm October 31, 2014 9:35am Start: 04-02-2014 End: 10-31-2014 take 500 ug by mouth once daily Biotin Discontinued 50 0 MCG PO DAILY April 01, 2014 11:00pm October 31, 2014 9:35am bisacodyl 10 mg rectal suppository (13 sources) Stimulant Laxative Start: 12-15-2023 End: 01-16-2024 Bisacodyl 10 mg Suppository Discontinued 10 mg RC ONE TIME as needed for Constipation 1 0 December 15, 2023 12:00am January 16, 2024 7:55pm Start: 12-15-2023 Start: 12-15-2023 Bisacodyl Acti ve 10 MG RC ONE TIME 1 December 15, 2023 12:00am 60 actuat budesonide 0.09 mg/actuat dry powder inhaler (20 sources) Corticosteroid Start: 10-07-2022 End: 12-15-2023 Budesonide 90 mcg/actuation aerosol powdr breath activated Discontinued 1 NMA INHALATION TWICE A DAY as needed for shortness of breath or wheezing March 14, 2023 11:36am December 15, 2023 10:45am Start: 10-07-2022 End: 12-15-2023 Start: 10-07-2022 End: 12-15-2023 Budesonide Discontinued 1 IN H INHALATION TWICE A DAY March 14, 2023 11:36am December 15, 2023 10:45am Start: 04-02-2014 End: 01-12-2017 Budesonide (Entocort Ec) 3 M G capsule Discontinued 9 mg PO DAILY April 02, 2014 12:00am January 12, 2017 1:32pm calcium carbonate 1500 mg / cholecalciferol 0.01 mg oral tablet (20 sources) Vitamin D Start: 11-11-2013 End: 04-02-2014 Calcium Carbonate-Vitamin D3 (Calcium 600 + Vit D Tablet) 1 EACH tablet Discontinued 1 NMA PO November 11, 2013 1:00am April 02, 2014 3:25pm Start: 11-11-2013 End: 04-02-2014 cefdinir 300 mg oral capsule (20 sources) Cephalosporin Antibacterial Start: 10-28-2014 End: 10-31-2014 take 1 capsule by mouth every twelve hours Cefdinir 300 MG capsule Discontinued 300 mg PO Q12H October 28, 2014 1:00am October 31, 2014 10:35am cephalexin 500 mg oral capsule (20 sources) Cephalosporin Antibacterial Start: 10-17-2024 End: 11-07-2024 take 1 capsule by mouth three times daily Cephalexin 500 mg capsule Discontinued 500 mg PO THREE TIMES A DAY 30 0 October 17, 2024 1:00am November 07, 2024 11:43am Start: 01-14-2018 End: 01-19-2018 take 1 capsule by mouth twice daily Cephalexin 500 MG capsule Discontinued 500 mg PO TWICE A DAY January 14, 2018 12:00am January 19, 2018 2:00pm cholecalciferol 0.05 mg oral capsule (20 sources) Vitamin D Start: 05-30-2019 End: 08-17-2021 take 1 capsule by mouth once daily Cholecalciferol (Vitamin D3) 2,000 UNIT capsule Discontinued 2000 U PO DAILY May 30, 2019 12:00am August 17, 2021 2:18pm supplement chondroitin sulfates 200 mg / glucosamine hydrochloride 250 mg oral tablet (20 sources) Start: 02-09-2021 End: 08-17-2021 Glucosamine-Chondroiti n (Osteo Bi-Flex) 250-200 mg tablet Discontinued 2 {tbl} PO DAILY February 09, 2021 12:00am August 17, 2021 2:19pm flexibility Start: 02-09-2021 End: 08-17-2021 codeine phosphate 2 mg/ml / guaiFENesin 20 mg/ml oral solution (20 sources) Opioid Agonist Start: 10-28-2014 End: 01-12-2017 take 1 mL by mouth every four hours as needed for cough Codeine-Guaifenesin 120 ML Liquid Discontinued 5 mL PO EVERY 4 HOURS NEEDED as needed for Cough October 28, 2014 1:00am January 12, 2017 1:30pm Start: 10-28-2014 End: 01-12-2017 Start: 10-28-2014 End: 01-12-2017 take 1 mL by mouth every four hours as needed Codeine-Guaifenesin Discontinued 5 ML PO EVERY 4 HOURS NEEDED October 28, 2014 1:00am January 12, 2017 1:30pm docusate sodium 50 mg / sennosides, [facility] 8.6 mg oral tablet (13 sources) Start: 12-15-2023 End: 01-16-2024 Sennosides-Docusate Sodium ( Stool Softener-Stimulant Laxat) 8.6-50 mg Tablet Discontinued 1 {tbl} PO TWICE A DAY as needed for Constipation 1 December 15, 2023 12:00am January 16, 2024 7:56pm Start: 12-15-2023 donepezil hydrochloride 5 mg oral tablet (20 sources) Start: 08-14-2022 End: 06-18-2024 take 1 tablet by mouth at bedtime Donepezil 5 mg tablet Discontinued 5 mg PO AT BEDTIME April 07, 2023 3:45pm June 18, 2024 1:00pm memory Start: 08-14-2022 End: 04-07-2023 doxycycline monohydrate 100 mg oral capsule (20 sources) Tetracycline-class Drug Start: 01-14-2018 End: 01-19-2018 take 1 capsule by mouth twice daily Doxycycline Monohydrate 100 MG capsule Discontinued 100 mg PO TWICE A DAY January 14, 2018 12:00am January 19, 2018 2:00pm escitalopram 5 mg oral tablet (20 sources) Serotonin Reuptake Inhibitor Start: 01-23-2020 End: 03-13-2025 take 1 tablet by mouth once daily Escitalopram Oxalate 5 mg tablet Discontinued 5 mg PO DAILY 90 January 07, 2025 12:01pm March 13, 2025 8:09am anxiety Start: 11-11-2013 End: 01-12-2017 take 1 tablet by mouth once daily Escitalopram Oxalate 20 MG tablet Discontinued 20 mg PO DAILY November 11, 2013 1:00am January 12, 2017 1:31pm ferrous sulfate 325 mg oral tablet (20 sources) Start: 06-27-2023 End: 01-16-2024 take 1 tablet by mouth once daily Ferrous Sulfate (Ferosul) 325 mg (65 mg iron) tablet Discontinued 0 .ROUTE .COMPLEX 90 June 27, 2023 4:51pm January 16, 2024 7:55pm supplement On Hold: Resume on 12/19/23. take 1 tablet by mouth once daily Start: 06-27-2023 End: 01-16-2024 take 1 tablet by mouth once daily Ferrous Sulfate (Ferosul) 325 mg (65 mg iron) tablet Discontinued 0 .ROUTE .COMPLEX June 27, 2023 4:51pm January 16, 2024 7:55pm On Hold: Resume on 12/19/23. take 1 tablet by mouth once daily Start: 06-27-2023 take 1 tablet by jonnathan once daily Ferrous Sulfate (Ferosul) 325 mg (65 mg iron) tablet Active 0 .ROUTE .COMPLEX June 27, 2023 4:51pm take 1 tablet by mouth once daily Start: 06-27-2023 take 1 tablet by jonnathan th once daily Ferrous Sulfate (Ferosul) 325 mg (65 mg iron) tablet Active 0 .ROUTE .COMPLEX 90 June 27, 2023 3:51pm take 1 tablet by mouth once daily Start: 03-14-2023 End: 01-16-2024 take 1 tablet by mouth once daily Ferrous Sulfate (Ferosul) 325 mg (65 mg iron) tablet Discontinued 0 .ROUTE .COMPLEX 90 June 27, 2023 4:51pm January 16, 2024 7:55pm supplement On Hold: Resume on 12/19/23. take 1 tablet by mouth once daily Start: 10-12-2022 take 325 mg by mouth once virgie y Ferrous Sulfate Active 325 MG PO DAILY October 12, 2022 12:00am furosemide 20 mg oral tablet (20 sources) Loop Diuretic Start: 01-19-2018 End: 12-18-2018 take 2 tablets by mouth once daily in the morning, then take 1 tablet by mouth once daily Furosemide (Lasix) 20 mg tablet Discontinued 20 mg PO daily 45 January 19, 2018 12:00am December 18, 2018 6:15pm Take 2 pills in the morning for 3 days, then decrease to one pill a day. Start: 01-19-2018 End: 12-28-2018 take 1 tablet by mouth once daily Furosemide (Lasix) 20 mg tablet Discontinued 20 mg PO daily 90 December 18, 2018 6:14pm December 28, 2018 2:34pm Uhzmpcsf-Ycke-Xzl8-C-Julio-Martin sw (Osteo Bi-Flex Caplet) 1 EACH tablet (20 sources) Start: 04-02-2014 End: 10-31-2014 take 1 tablet by mouth once daily Ocfnhzpm-Mepm-Kol2-C-Julio-Bosw (Osteo Bi-Flex Caplet) 1 EACH tablet Discontinued 2 EACH PO DAILY April 02, 2014 3:29pm October 31, 2014 10:36am Start: 04-02-2014 End: 10-31-2014 take 1 tablet by mouth once daily Tbttmczt-Hoiq-Mci4-C-Julio-Bosw (Osteo Bi -Flex Caplet) 1 EACH tablet Discontinued 2 NMA PO DAILY April 02, 2014 12:00am October 31, 2014 10:36am Start: 04-02-2014 End: 10-31-2014 take 1 tablet by mouth once daily Fcqbsvhy-Mwqm-Jnd1-C-Julio-Bosw (Osteo Bi -Flex Caplet) 1 EACH tablet Discontinued 2 EACH PO DAILY April 01, 2014 11:00pm October 31, 2014 9:36am Start: 04-02-2014 End: 10-31-2014 take 1 tablet by mouth once daily Molszbck-Yepm-Rvk0-C-Julio-Bosw (Osteo Bi -Flex Caplet) 1 EACH tablet Discontinued 2 EACH PO DAILY April 02, 2014 12:00am October 31, 2014 10:36am 5 ml iron sucrose 20 mg/ml injection (13 sources) Parenteral Iron Replacement Start: 12-15-2023 End: 01-16-2024 Iron Sucrose (Venofer) 100 mg iron/5 mL Solution Discontinued 200 mg IV DAILY 5 0 December 15, 2023 12:00am January 16, 2024 7:55pm Supplement levothyroxine sodium 0.05 mg oral tablet (20 sources) l-Thyroxine Start: 02-04-2025 End: 02-04-2025 take 1 tablet by mouth two times weekly Start: 02-04-2025 End: 05-15-2025 take 1 tablet by mouth five times weekly Levothyroxine 50 mcg tablet Discontinued 50 ug PO 5 times per week 90 February 04, 2025 1:14pm May 15, 2025 7:45am thyroid Start: 01-03-2025 End: 02-04-2025 take 1 tablet by mouth once daily Levothyroxine 50 mcg tablet Discontinued 50 ug PO DAILY 90 January 03, 2025 4:26pm February 04, 2025 7:17am thyroid Start: 11-08-2024 End: 01-03-2025 take 1 tablet by mouth once daily Levothyroxine 75 mcg tablet Discontinued 75 ug PO DAILY 60 November 08, 2024 12:37pm January 03, 2025 4:26pm thyroid Start: 09-24-2024 End: 11-08-2024 take 1 tablet by mouth once daily Levothyroxine 88 mcg tablet Discontinued 88 ug PO DAILY 60 September 24, 2024 5:27pm November 08, 2024 12:38pm thyroid Start: 06-04-2024 End: 09-24-2024 take 1 tablet by mouth once daily Levothyroxine 100 mcg tablet Discontinued 100 ug PO DAILY 60 1 June 04, 2024 4:02pm September 24, 2024 5:28pm thyroid Start: 07-28-2022 End: 06-04-2024 take 1 tablet by mouth once daily Levothyroxine 112 mcg tablet Discontinued 112 ug PO DAILY 90 January 23, 2024 8:13am June 04, 2024 4:02pm thyroid Start: 07-28-2022 End: 11-09-2023 Levothyroxine 112 mcg tablet Discontinued 112 ug PO DAILY 90 July 21, 2023 12:15pm November 09, 2023 8:47am 1/2 tab one day and 1 tab the rest (6 days) Start: 08-17-2021 take 50 ug by mouth once daily Levothyroxine Active 50 MCG PO DAILY August 17, 2021 12:00am Start: 05-30-2019 End: 08-17-2021 take 1 tablet by mouth once daily Levothyroxine 100 MCG tablet Discontinued 100 ug PO DAILY May 30, 2019 12:00am August 17, 2021 2:17pm thyroid lidocaine 0.05 mg/mg medicated patch (20 sources) Antiarrhythmic, Amide Local Anesthetic Start: 12-15-2023 End: 02-24-2024 Lidocaine 5 % Adhesive Patch,Medicated Discontinued 1 NMA TOPICAL 0700 30 30 0 January 16, 2024 12:00am February 24, 2024 1:49pm Please contact the information source for Protocol details. Start: 12-15-2023 linaclotide 0.072 mg oral capsule (20 sources) Guanylate Cyclase-C Agonist Start: 08-17-2021 End: 11-27-2023 Linaclotide (Linzess) 72 mcg capsule Discontinued 72 ug PO NEEDED as needed for Constipation August 17, 2021 1:00am November 27, 2023 6:36pm lisinopril 2.5 mg oral tablet (20 sources) Angiotensin Converting Enzyme Inhibitor Start: 12-15-2023 End: 02-04-2025 take 1 tablet by mouth at bedtime Lisinopril 2.5 mg tablet Discontinued 2.5 mg PO AT BEDTIME 90 2 May 14, 2024 2:59pm February 04, 2025 8:13am Start: 12-15-2023 Start: 01-19-2018 End: 06-29-2018 Lisinopril 2.5 mg tablet Dis continued PO 30 30 0 January 19, 2018 12:00am June 29, 2018 1:49pm Start: 01-19-2018 End: 06-29-2018 magnesium hydroxide 80 mg/ml oral suspension (10 sources) Start: 12-15-2023 End: 01-16-2024 take 1 mL by mouth once as needed for constipation Magnesium Hydroxide 400 mg/5 mL Suspension Discontinued 30 mL PO ONE TIME as needed for Constipation 30 0 December 15, 2023 12:00am January 16, 2024 7:56pm Start: 12-15-2023 End: 01-16-2024 take 1 mL by mouth once as needed for constipation Magnesium Hydroxide 400 mg/5 mL Suspension Discontinued 30 mL PO ONE TIME as needed for Constipation 30 0 December 15, 2023 12:00am January 16, 2024 7:56pm Start: 12-15-2023 End: 01-16-2024 take 1 mL by mouth once as needed for constipation Magnesium Hydroxide 400 mg/5 mL Suspension Discontinued 30 mL PO ONE TIME as needed for Constipation December 15, 2023 12:00am January 16, 2024 7:56pm Start: 12-15-2023 take 1 mL by mouth once Magnes ium Hydroxide Active 30 ML PO ONE TIME December 15, 2023 12:00am meclizine hydrochloride 25 mg oral tablet (20 sources) Antiemetic Start: 08-02-2022 End: 11-29-2023 take 1 tablet by mouth twice daily Meclizine 25 mg tablet Discontinued 25 mg PO TWICE A DAY August 18, 2022 9:53am July 18, 2023 1:03pm Start: 10-02-2019 End: 01-20-2020 take 1 tablet by mouth four times daily as needed Meclizine 25 MG tablet Discontinued 25 mg PO 4 TIMES DAILY NEEDED as needed for Vertigo October 02, 2019 1:00am January 20, 2020 12:42pm Start: 10-02-2019 End: 01-20-2020 meloxicam 7.5 mg oral tablet (20 sources) Nonsteroidal Anti-inflammatory Drug Start: 06-03-2019 End: 06-03-2019 take 1 tablet by mouth once daily Meloxicam 7.5 MG tablet Discontinued 7.5 mg PO DAILY 0 June 03, 2019 12:00am June 03, 2019 11:22am methylPREDNISolone acetate 40 mg/ml injectable suspension (20 sources) Corticosteroid Start: 10-16-2018 End: 10-16-2018 Kenalog (triamcinolone acetonide) 40 mg/mL suspension for injection Discontinued 10 MG INTRAARTIC ONCE 0.25 October 16, 2018 2:14pm October 16, 2018 3:04pm Start: 10-31-2014 End: 01-12-2017 take 2 tablets by mouth once daily at mealtime Methylprednisolone 16 MG tablet Discontinued 32 mg PO DAILY WITH MEALS 5 0 October 31, 2014 1:00am January 12, 2017 1:30pm Start: 10-31-2014 End: 01-12-2017 metoprolol tartrate 25 mg oral tablet (20 sources) beta-Adrenergic Krystina Start: 05-30-2019 End: 12-15-2023 take 1 tablet by mouth twice daily Metoprolol Tartrate 25 mg tablet Discontinued 25 mg PO TWICE A DAY 180 3 June 20, 2023 9:47am December 15, 2023 10:43am BP On Hold: Resume on 12/02/23. Start: 05-30-2019 End: 02-09-2021 Metoprolol Tartrate 25 MG ta blet Discontinued 12.5 mg PO TWICE A DAY May 30, 2019 12:00am February 09, 2021 1:37pm BP Start: 05-30-2019 End: 02-09-2021 take 12.5 mg by mouth twice daily Metoprolol Tartrate Discontinued 12.5 MG PO TWICE A DAY May 30, 2019 12:00am February 09, 2021 1:37pm Start: 11-11-2013 End: 09-29-2017 take 1 tablet by mouth twice daily Metoprolol Succinate 25 MG tablet Discontinued 25 mg PO TWICE A DAY November 11, 2013 1:00am September 29, 2017 4:25pm Uthqicug-Vnv-Vs-Lycopen-Lute in (Centrum Silver Tablet) 1 EACH tablet (20 sources) Start: 04-02-2014 End: 10-31-2014 Qgjetktc-Eib-Nz-Lycopen-Lute in (Centrum Silver Tablet) 1 EACH tablet Discontinued 1 EACH PO DAILY April 02, 2014 3:28pm October 31, 2014 10:36am Start: 04-02-2014 End: 10-31-2014 Gmaxcrxf-Btf-Eg-Lycopen-Lute in (Centrum Silver Tablet) 1 EACH tablet Discontinued 1 NMA PO DAILY April 02, 2014 12:00am October 31, 2014 10:36am Start: 04-02-2014 End: 10-31-2014 Qefbskkj-Dcm-Ci-Lycopen-Lute in (Centrum Silver Tablet) 1 EACH tablet Discontinued 1 EACH PO DAILY April 01, 2014 11:00pm October 31, 2014 9:36am Start: 04-02-2014 End: 10-31-2014 Egiaddmz-Mgq-Pj-Lycopen-Lute in (Centrum Silver Tablet) 1 EACH tablet Discontinued 1 EACH PO DAILY April 02, 2014 12:00am October 31, 2014 10:36am mupirocin 0.02 mg/mg topical ointment (9 sources) RNA Synthetase Inhibitor Antibacterial Start: 10-17-2024 End: 11-07-2024 Mupirocin 2 % ointment Discontinued 1 NMA TOPICAL TWICE A DAY 15 0 October 17, 2024 1:00am November 07, 2024 11:43am Start: 10-17-2024 End: 11-07-2024 Mupirocin 2 % ointment Disco ntinued 1 NMA TOPICAL TWICE A DAY 15 0 October 17, 2024 1:00am November 07, 2024 11:43am Start: 10-17-2024 End: 11-07-2024 Mupirocin 2 % ointment Disco ntinued 1 NMA TOPICAL TWICE A DAY October 17, 2024 1:00am November 07, 2024 11:43am Nm-Xzs-Rr-Zz-Nu-Mkvhlgf-Lute in (Centravites Tablet) 1 EACH tablet (20 sources) Start: 10-28-2014 End: 10-31-2014 Hg-Ted-Uu-Ei-Vp-Uikuoze-Lute in (Centravites Tablet) 1 EACH tablet Discontinued 1 EACH PO DAILY October 28, 2014 1:21pm October 31, 2014 10:36am Start: 10-28-2014 End: 10-31-2014 Da-Tdn-Zo-Pf-Od-Hupstsj-Lute in (Centravites Tablet) 1 EACH tablet Discontinued 1 NMA PO DAILY October 28, 2014 1:00am October 31, 2014 10:36am Start: 10-28-2014 End: 10-31-2014 Eg-Kde-Oi-Mg-Ci-Asybkcp-Lute in (Centravites Tablet) 1 EACH tablet Discontinued 1 EACH PO DAILY October 28, 2014 12:00am October 31, 2014 9:36am Start: 10-28-2014 End: 10-31-2014 Ub-Hxt-Xa-Hk-Ve-Gxnhgig-Lute in (Centravites Tablet) 1 EACH tablet Discontinued 1 EACH PO DAILY October 28, 2014 1:00am October 31, 2014 10:36am nitrofurantoin, macrocrystals 25 mg / nitrofurantoin, monohydrate 75 mg oral capsule (20 sources) Nitrofuran Antibacterial Start: 03-29-2025 End: 04-03-2025 take 1 capsule by mouth every twelve hours at mealtime Nitrofurantoin Monohyd/M-Cryst (Macrobid) 100 mg capsule Discontinued 100 mg PO Q12H 10 5 0 March 29, 2025 12:00am April 02, 2025 12:00am April 03, 2025 12:07am must administer with a meal/food Start: 11-01-2023 End: 11-06-2023 take 1 capsule by mouth every twelve hours at mealtime Nitrofurantoin Monohyd/M-Cryst (Macrobid) 100 mg capsule Discontinued 100 mg PO Q12H 10 5 0 November 01, 2023 1:00am November 05, 2023 1:00am November 06, 2023 1:05am must administer with a meal/food ondansetron 4 mg disintegrating oral tablet (20 sources) Serotonin-3 Receptor Antagonist Start: 11-08-2018 End: 12-27-2018 take 1 tablet by mouth every eight hours as needed for nausea Ondansetron 4 MG tablet Discontinued 4 mg PO EVERY 8 HOURS NEEDED as needed for Nausea November 08, 2018 1:00am December 27, 2018 2:33pm Start: 01-07-2017 End: 01-12-2017 take 1 tablet by mouth four times daily as needed for nausea Ondansetron Hcl (Zofran) 4 MG tablet Discontinued 4 mg PO 4 TIMES DAILY NEEDED as needed for Nausea 10 0 January 07, 2017 4:00pm January 12, 2017 1:29pm oxyCODONE hydrochloride 5 mg oral tablet (14 sources) Opioid Agonist Start: 11-29-2023 End: 12-15-2023 take 1 tablet by mouth every four hours as needed for pain Oxycodone 5 mg Tablet Discontinued 5 mg PO EVERY 4 HOURS NEEDED as needed for PAIN 4-10 0 0 November 29, 2023 December 15, 2023 10:46am pantoprazole 40 mg delayed release oral tablet (20 sources) Proton Pump Inhibitor Start: 12-15-2023 End: 05-15-2025 take 1 tablet by mouth once daily Pantoprazole 40 mg tablet,delayed release (DR/EC) Discontinued 40 mg PO DAILY 90 2 February 04, 2025 8:13am May 15, 2025 7:45am predniSONE 10 mg oral tablet (20 sources) Start: 01-14-2018 End: 01-19-2018 Prednisone 10 MG tablet Discontinued 2 {tbl} PO TWICE A DAY January 14, 2018 12:00am January 19, 2018 2:01pm Psyllium Husk (Aspartame) (Daily Fiber (Psyllium-Aspart)) 3 gram Powder In Packet (5 sources) Start: 11-29-2023 End: 01-16-2024 Psyllium Husk (Aspartame) (Daily Fiber (Psyllium-Aspart)) 3 gram Powder In Packet Discontinued 1 NMA PO DAILY 0 November 29, 2023 12:00am January 16, 2024 7:56pm Start: 11-29-2023 Psyllium Husk (Aspartame) (Daily Fiber (Psyllium-Aspart)) 3 gram Powder In Packet Active 1 PACKET PO DAILY 0 November 29, 2023 12:00am Psyllium Husk (Daily Fiber (Psyllium-Aspart)) 3 gram Powder In Packet (6 sources) Start: 11-29-2023 End: 01-16-2024 Psyllium Husk (Daily Fiber (Psyllium-Aspart)) 3 gram Powder In Packet Discontinued 1 NMA PO DAILY 0 0 November 29, 2023 12:00am January 16, 2024 7:56pm bowel mobility rivaroxaban 15 mg oral tablet (20 sources) Factor Xa Inhibitor Start: 11-11-2013 End: 10-31-2014 take 1 tablet by mouth once daily Rivaroxaban (Xarelto) 15 MG tablet Discontinued 15 mg PO DAILY November 11, 2013 1:00am October 31, 2014 10:36am Silver-Foam Bandage (Aquacel Ag Foam) 1.2 %- 3.2" X 3.2" bandage (9 sources) Start: 10-26-2024 End: 11-07-2024 Silver-Foam Bandage (Aquacel Ag Foam) 1.2 %- 3.2" X 3.2" bandage Discontinued 0 TOPICAL .COMPLEX 10 0 October 26, 2024 1:00am November 07, 2024 11:44am apply dressing topically to right leg (covering both small wounds). Change dressing every 2-3 days. Start: 10-26-2024 End: 11-07-2024 Silver-Foam Bandage (Aquacel Ag Foam) 1.2 %- 3.2" X 3.2" bandage Discontinued 0 TOPICAL .COMPLEX October 26, 2024 1:00am November 07, 2024 11:44am apply dressing topically to right leg (covering both small wounds). Change dressing every 2-3 days. Silver-Foam Bandage (Aquacel Ag Foam) 1.2 %- 5" X 5" bandage (9 sources) Start: 10-26-2024 End: 11-07-2024 Silver-Foam Bandage (Aquacel Ag Foam) 1.2 %- 5" X 5" bandage Discontinued 0 TOPICAL .COMPLEX 10 0 October 26, 2024 1:00am November 07, 2024 11:44am apply one dressing topically to left leg (covering all of the small wounds); Change dressing every 2-3 days Start: 10-26-2024 End: 11-07-2024 Silver-Foam Bandage (Aquacel Ag Foam) 1.2 %- 5" X 5" bandage Discontinued 0 TOPICAL .COMPLEX 10 October 26, 2024 1:00am November 07, 2024 11:44am apply one dressing topically to left leg (covering all of the small wounds); Change dressing every 2-3 days traMADol hydrochloride 50 mg oral tablet (20 sources) Opioid Agonist Start: 12-15-2023 End: 01-16-2024 Tramadol 50 mg Tablet Discontinued 25 mg PO EVERY 6 HOURS 14 7 0 December 15, 2023 12:00am January 16, 2024 7:56pm pain Start: 12-15-2023 Start: 05-06-2020 End: 02-09-2021 take 1 tablet by mouth twice daily as needed for pain Tramadol 50 mg tablet Discontinued 50 mg PO TWICE A DAY as needed for pain 60 1 May 06, 2020 12:00am February 09, 2021 1:37pm stop all other narcotics Start: 05-06-2020 End: 02-09-2021 Start: 06-26-2019 End: 04-14-2020 take 1 tablet by mouth every six hours as needed for pain Tramadol 50 mg tablet Discontinued 50 mg PO EVERY 6 HOURS NEEDED as needed for Pain Score 4-06/14January 23, 2020 11:35am April 14, 2020 1:31pm Start: 06-26-2019 End: 04-14-2020 Start: 10-28-2014 End: 01-12-2017 take 1 tablet by mouth every six hours as needed for pain Tramadol 50 MG tablet Discontinued 50 mg PO EVERY 6 HOURS NEEDED as needed for Pain October 28, 2014 1:00am January 12, 2017 1:29pm Start: 10-28-2014 End: 01-12-2017 triamcinolone acetonide 40 mg/ml injectable suspension (3 sources) Corticosteroid Start: 11-15-2019 End: 11-15-2019 Kenalog (triamcinolone acetonide) 40 mg/mL suspension for injection Discontinued 40 MG INTRAARTIC ONCE 1 November 15, 2019 10:08am November 15, 2019 10:25am Start: 04-25-2018 End: 04-25-2018 Kenalog (triamcinolone aceto nide) 10 mg/mL suspension for injection Discontinued 10 MG INTRAARTIC ONCE 1 April 25, 2018 8:56am April 25, 2018 9:42am Start: 02-02-2018 End: 02-02-2018 Kenalog (triamcinolone aceto nide) 10 mg/mL suspension for injection Discontinued 1 MG INTRAARTIC ONCE 0.1 February 02, 2018 1:14pm February 02, 2018 1:14pm Turmeric Root Extract (20 sources) Start: 02-09-2021 End: 04-25-2021 take 500 mg by mouth once daily Turmeric Root Extract Discontinued 500 MG PO DAILY February 09, 2021 1:34pm April 25, 2021 7:22pm Start: 02-09-2021 End: 04-25-2021 take 1 capsule by mouth once daily Turmeric Root Extract 500 mg capsule Discontinued 500 mg PO DAILY February 09, 2021 12:00am April 25, 2021 7:22pm Start: 02-09-2021 End: 04-25-2021 Start: 02-09-2021 End: 04-25-2021 take 500 mg by mouth once daily Turmeric Root Extract Discontinued 500 MG PO DAILY February 08, 2021 11:00pm April 25, 2021 6:22pm Start: 02-09-2021 End: 04-25-2021 take 500 mg by mouth once daily Turmeric Root Extract Discontinued 500 MG PO DAILY February 09, 2021 12:00am April 25, 2021 7:22pm vancomycin 125 mg oral capsule (20 sources) Glycopeptide Antibacterial Start: 01-12-2017 End: 09-29-2017 take 1 capsule by mouth every six hours Vancomycin 125 MG capsule Discontinued 125 mg PO EVERY 6 HOURS January 12, 2017 12:00am September 29, 2017 4:16pm Problems Active Problems Problem Classification Problem Date Documented Da te Episodic/Chronic Acute cerebrovascular disease (20 sources) Cerebrovascular accident; Translations: [Cerebral infarction, unspecified] 04-25-2021 Chronic Anxiety disorders (20 sources) Mixed anxiety and depressive disorder; Translations: [Anxiety disorder, unspecified] Onset: 10-07-2022 Chronic Asthma (20 sources) Asthma; Translations: [Unspecified asthma, uncomplicated] 05-31-2021 Chronic Cardiac dysrhythmias (20 sources) Sick sinus syndrome; Translations: [Sick sinus syndrome] Onset: Chronic Chronic ulcer of skin (20 sources) Ulcer of lower extremity; Translations: [Non-pressure chronic ulcer of unspecified part of left lower leg with fat layer exposed] 12-15-2018 Chronic Coagulation and hemorrhagic disorders (20 sources) Blood coagulation disorder; Translations: [Coagulation defect, unspecified] 08-03-2022 Chronic Complication of device; implant or graft (19 sources) Disorder of cardiac pacemaker electrode; Translations: [Breakdown (mechanical) of cardiac electrode, initial encounter] 10-24-2023 Episodic Comment on above: New RV lead implante d 11/08/23 @ [facility] Conditions associated with dizziness or vertigo (20 sources) Vertigo; Translations: [Dizziness and giddiness] 10-07-2022 Episodic Conduction disorders (20 sources) Complete atrioventricular block; Translations: [Atrioventricular block, complete] Onset: 5 Chronic Comment on above: Slow ventricular res ponse to a-fib 06/2009; Deficiency and other anemia (20 sources) Iron deficiency anemia; Translations: [Iron deficiency anemia, unspecified] 04-26-2021 Episodic Deficiency and other anemia (20 sources) Anemia; Translations: [Anemia, unspecified] 10-11-2022 Episodic Deficiency and other anemia (4 sources) Iron deficiency anemia, unspecified; Translations: [Iron deficiency anemia, unspecified] 11-01-2022 Episodic Deficiency and other anemia (4 sources) Anemia, unspecified; Translations: [Anemia, unspecified] 12-15-2023 Episodic Delirium, dementia, and amnestic and other cognitive disorders (20 sources) Dementia; Translations: [Unspecified dementia without behavioral disturbance] Onset: 5 07-18-2023 Chronic Disorders of lipid metabolism (20 sources) Hyperlipidemia; Translations: [Hyperlipidemia, unspecified] Onset: 5 Chronic E Codes: Fall (20 sources) Fall; Translations: [Unspecified fall, initial encounter] 08-03-2022 Episodic Essential hypertension (20 sources) Essential hypertension; Translations: [Essential (primary) hypertension] Onset: Chronic Fracture of upper limb (20 sources) Closed fracture of base of thumb; Translations: [Other displaced fracture of base of first metacarpal bone, right hand, initial encounter for closed fracture] 09-17-2022 Episodic Fracture of upper limb (18 sources) Fracture of distal end of radius; Translations: [Unspecified fracture of the lower end of left radius, initial encounter for closed fracture] 06-22-2023 Episodic Gastrointestinal hemorrhage (20 sources) Gastrointestinal hemorrhage; Translations: [Hemorrhage of anus and rectum] 10-07-2022 Episodic Genitourinary symptoms and ill-defined conditions (9 sources) Abnormal urinalysis; Translations: [Unspecified abnormal findings in urine] 07-18-2023 Episodic Heart valve disorders (20 sources) Non-rheumatic mitral regurgitation ; Translations: [Nonrheumatic mitral (valve) insufficiency] Chronic Intracranial injury (20 sources) Concussion injury of body structure; Translations: [Concussion with loss of consciousness of unspecified duration, initial encounter] 09-17-2022 Episodic Malaise and fatigue (20 sources) Asthenia; Translations: [Other malaise] 08-24-2022 Episodic Comment on above: Due to a fall result ing in pelvic fractures and a right clavicle fracture. Mood disorders (20 sources) Depressive disorder; Translations: [Depression] 04-26-2021 Chronic Mood disorders (1 source) Mood disorders; Translations: [Depression, unspecified] Onset: Noninfectious gastroenteritis (20 sources) Microscopic colitis; Translations: [Microscopic colitis, unspecified] 05-31-2021 Chronic Open wounds of head; neck; and trunk (20 sources) Tear of skin; Translations: [Skin tear] 03-17-2022 Episodic Osteoarthritis (20 sources) Osteoarthritis; Translations: [Unspecified osteoarthritis, unspecified site] 09-17-2022 Chronic Other aftercare (13 sources) Long-term current use of anticoagulant; Translations: [long term care pharmacist (current) use of anticoagulants] 12-15-2023 Episodic Other aftercare (1 source) skilled nursing (current) use of anticoagulants; Translations: [Long-term (current) use of anticoagulants] 12-15-2023 Episodic Other circulatory disease (1 source) Other disorders of arteries, arterioles and capillaries in diseases classified elsewhere; Translations: [Other disorders of arteries, arterioles and capillaries in diseases classified elsewhere] Onset: 5 Chronic Other circulatory disease (20 sources) H/O: atrial fibrillation; Translations: [Personal history of other diseases of the circulatory system] 03-01-2022 Episodic Other connective tissue disease (11 sources) Thigh pain; Translations: [Pain in right thigh] 12-15-2023 Episodic Comment on above: Venous US was negati ve for DVT. on 12/13/23. Eliquis has been restarted for AF and for DVT prophylaxis. We held the Eliquis for 8 days after starting Protonix for heme + stool. Other connective tissue disease (4 sources) Pain in right thigh; Translations: [Pain in limb] 12-15-2023 Episodic Other connective tissue disease (2 sources) Pain of right thigh; Translations: [Pain in right thigh] 12-15-2023 Episodic Comment on above: Venous US was negati ve for DVT. on 12/13/23. Eliquis has been restarted for AF and for DVT prophylaxis. We held the Eliquis for 8 days after starting Protonix for heme + stool. Other diseases of veins and lymphatics (20 sources) Peripheral venous insufficiency; Translations: [Venous insufficiency (chronic) (peripheral)] 12-15-2018 Episodic Other diseases of veins and lymphatics (2 sources) Venous insufficiency (chronic) (peripheral); Translations: [Venous (peripheral) insufficiency, unspecified] 10-07-2022 Episodic Other fractures (2 sources) Closed fracture of pelvis; Translations: [Fracture of unspecified parts of lumbosacral spine and pelvis, initial encounter for closed fracture] 11-27-2023 Episodic Other fractures (15 sources) Fracture of inferior pubic ramus; Translations: [Other specified fracture of right pubis, initial encounter for closed fracture] 11-27-2023 Episodic Other fractures (15 sources) Fracture of superior pubic ramus; Translations: [Fracture of superior rim of right pubis, initial encounter for closed fracture] 11-27-2023 Episodic Other fractures (10 sources) Other specified fracture of right pubis, initial encounter for closed fracture; Translations: [Closed fracture of pubis] 11-27-2023 Episodic Other fractures (10 sources) Fracture of superior rim of right pubis, initial encounter for closed fracture; Translations: [Closed fracture of pubis] 11-27-2023 Episodic Other fractures (8 sources) Fracture of unspecified parts of lumbosacral spine and pelvis, initial encounter for closed fracture; Translations: [Closed unspecified fracture of pelvis] 11-27-2023 Episodic Other fractures (12 sources) Fracture of pelvis; Translations: [Fracture of unspecified parts of lumbosacral spine and pelvis, initial encounter for closed fracture] 12-15-2023 Episodic Other fractures (9 sources) Fracture of multiple pubic rami; Translations: [Other specified fracture of unspecified pubis, initial encounter for closed fracture] 02-01-2024 Episodic Other gastrointestinal disorders (13 sources) Occult blood in stools; Translations: [Other fecal abnormalities] 12-05-2023 Episodic Other gastrointestinal disorders (4 sources) Other fecal abnormalities; Translations: [Nonspecific abnormal findings in stool contents] 12-15-2023 Episodic Other hematologic conditions (20 sources) Raised cardiac enzyme or marker; Translations: [Other specified abnormalities of plasma proteins] 05-03-2021 Episodic Other injuries and conditions due to external causes (20 sources) Closed injury of head; Translations: [Unspecified injury of head, initial encounter] 09-17-2022 Episodic Other lower respiratory disease (8 sources) Cough; Translations: [Cough] 09-02-2023 Episodic Other nervous system disorders (13 sources) Acute pain due to injury; Translations: [Acute pain due to trauma] 11-30-2023 Episodic Other nervous system disorders (4 sources) Acute pain due to trauma; Translations: [Acute pain due to trauma] 12-15-2023 Episodic Other screening for suspected conditions (not mental disorders or infectious disease) (1 source) Other specified abnormal findings of blood chemistry; Translations: [Elevated troponin level] 05-03-2021 Episodic Paralysis (20 sources) Right hemiparesis; Translations: [Hemiplegia, unspecified affecting right dominant side] 04-26-2021 Chronic Pathological fracture (6 sources) Insufficiency fracture; Translations: [Pathological fracture, unspecified site, initial encounter for fracture] 06-23-2023 Episodic Residual codes; unclassified (20 sources) Edema of lower extremity; Translations: [Localized edema] 12-15-2018 Episodic Residual codes; unclassified (20 sources) Periorbital edema of left eye; Translations: [Localized edema] 09-17-2022 Episodic Residual codes; unclassified (20 sources) Confusional state; Translations: [Disorientation, unspecified] 08-24-2022 Episodic Residual codes; unclassified (7 sources) Memory impairment; Translations: [Other amnesia] 10-07-2022 Episodic Residual codes; unclassified (2 sources) Other amnesia; Translations: [Memory loss] 10-07-2022 Episodic Residual codes; unclassified (4 sources) Postmenopausal state; Translations: [Asymptomatic menopausal state] 10-24-2023 Episodic Residual codes; unclassified (4 sources) Asymptomatic menopausal state; Translations: [Asymptomatic postmenopausal status (age-related) (natural)] 10-24-2023 Episodic Rheumatoid arthritis and related disease (15 sources) Rheumatoid arthritis; Translations: [Rheumatoid arthritis, unspecified] 12-15-2023 Chronic Skin and subcutaneous tissue infections (12 sources) Cellulitis of lower leg; Translations: [Cellulitis of left lower limb] 10-17-2024 Episodic Superficial injury; contusion (20 sources) Contusion of lower back; Translations: [Contusion of lower back and pelvis, initial encounter] 06-11-2020 Episodic Thyroid disorders (20 sources) Acquired hypothyroidism; Translations: [Hypothyroidism, unspecified] Onset: 07-09-2019 Chronic Transient cerebral ischemia (20 sources) Transient cerebral ischemia; Translations: [Transient cerebral ischemic attack, unspecified] 05-03-2021 Chronic Urinary tract infections (20 sources) Acute cystitis; Translations: [Acute cystitis without hematuria] Onset: 5 12-05-2023 Episodic Past or Other Problems Problem Classification Problem Date Documented Da te Episodic/Chronic Administrative/social admission (1 source) Other reduced mobility; Translations: [Other reduced mobility] Onset: 07-27-2024 Episodic Immunizations and screening for infectious disease (20 sources) Needs influenza immunization; Translations: [Encounter for immunization] Onset: 07-27-2024 07-18-2023 Episodic Open wounds of extremities (20 sources) Laceration of knee; Translations: [Laceration without foreign body, unspecified knee, initial encounter] Onset: 12-03-2024 07-09-2019 Episodic Residual codes; unclassified (3 sources) Disorientation, unspecified; Translations: [Unspecified psychosis] Onset: 04-03-2025 08-16-2022 Episodic Results Test Name Value Interpretation Reference Range Facility Basic Metabolic Profile (BMP )on 07-04-2025 BUN/CRE 24.3 RATIO High 06-24 Comment on above: Performed By: #### L 500.2500 #### [id number] [place], [address] Calcium [Mass/Vol] 9.6 mg/dL Normal 7.6-11.0 [facility] Comment on above: Performed By: #### L 500.2500 #### [id number] [place], [address] Chloride [Moles/Vol] 98 mmol/L Normal 98-108 [facility] Comment on above: Performed By: #### L 500.2500 #### [id number] [place], [address] CO2 [Moles/Vol] 25.9 mmol/L Normal 21.0-32.0 Comment on above: Performed By: #### L 500.2500 #### [id number] [place], [address] Creatinine [Mass/Vol] 1.01 mg/dL Normal 0.70-1.20 [facility] Comment on above: Performed By: #### L 500.2500 #### [id number] [place], [address] GAP 11 Normal 5-15 Comment on above: Performed By: #### L 500.2500 #### [address] [place], [address] GFR/1.73 sq M.predicted among non-blacks MDRD (S/P/Bld) [Vol rate/Area] 53 mL/min/{1.73_m2} Low >60 [facility] Comment on above: Result Comment: mL/m in/1.73m2 CKD-EPI Creatinine Equation (2020) Performed By: #### L 500.2500 #### [id number] [place], [address] Glucose [Mass/Vol] 139 mg/dL High 70-99 [facility] Comment on above: Performed By: #### L 500.2500 #### [id number] [place], [address] Potassium [Moles/Vol] 4.6 mmol/L Normal 3.3-5.1 [facility] Comment on above: Result Comment: Hemo lysis present, Results??could be affected. ?? Performed By: #### L 500.2500 #### [id number] [place], [address] Sodium [Moles/Vol] 134 mmol/L Normal 133-145 [facility] Comment on above: Performed By: #### L 500.2500 #### [id number] [place], [address] Urea nitrogen [Mass/Vol] 25 mg/dL High 4-19 Comment on above: Performed By: #### L 500.2500 #### [id number] [place], [address] Lipid Profileon 07-04-2025 CHOL:HDL 2.31 Normal Comment on above: Performed By: #### L 500.3400, L500.4100 #### [address] [place], [address] Cholesterol [Mass/Vol] 162 mg/dL Normal <=200 [facility] Comment on above: Result Comment: Chol esterol level, Desirable <200 mg/dL Borderline high cholesterol 200-239 mg/dL High cholesterol >=240 mg/dL Recommendations of the NCEP Adult Treatment Panel for the following risk-cutoff thresholds for the [place] population. Performed By: #### L 500.3400, L500.4100 #### [id number] [place], [address] Cholesterol in HDL [Mass/Vol] 70 mg/dL Normal Comment on above: Result Comment: Ann-[place] onal Cholesterol Education Program (NCEP) guidelines: <40 mg/dL: Low HDL-cholesterol (major risk factor for CHD) >= 60 mg/dL: High HDL-cholesterol (negative risk factor for CHD) HDL-cholesterol is affected by a number of factors, e.g. smoking, exercise, hormones, sex and age. Performed By: #### L 500.3400, L500.4100 #### [id number] [place], [address] Cholesterol in LDL [Mass/Vol] 81 mg/dL Normal Comment on above: Result Comment: Bord csvveg=451-505 mg/dL Higher Otmk=976 mg/dL or greater [place] Equation 2020 for LDL-C Performed By: #### L 500.3400, L500.4100 #### [address] [place], [address] Cholesterol in VLDL [Mass/Vol] 10 mg/dL Normal 5-40 Comment on above: Performed By: #### L 500.3400, L500.4100 #### [id number] [place], [address] Triglyceride [Mass/Vol] 52 mg/dL Normal [facility] Comment on above: Result Comment: The drugs N-Acetylcysteine and Metamizole may falsely depress this assay. Normal range: <150 mg/dL Borderline High: 150-199 mg/dL High: 200-499 mg/dL Very High: >500 mg/dL Performed By: #### L 500.3400, L500.4100 #### [address] [place], [address] Liver Profileon 07-04-2025 Albumin [Mass/Vol] 4.1 g/dL Normal 3.4-4.8 [facility] Comment on above: Performed By: #### L 500.3400, L500.4100 #### [address] [place], [address] ALK PHOS 51 U/L Normal 35-104 Comment on above: Performed By: #### L 500.3400, L500.4100 #### [address] [place], [address] ALT [Catalytic activity/Vol] 12 U/L Normal <=34 Comment on above: Performed By: #### L 500.3400, L500.4100 #### [id number] [place], [address] AST [Catalytic activity/Vol] 21 U/L Normal <=31 Comment on above: Performed By: #### L 500.3400, L500.4100 #### [address] [place], [address] Bilirubin [Mass/Vol] 0.58 mg/dL Normal 0.00-1.30 [facility] Comment on above: Performed By: #### L 500.3400, L500.4100 #### [id number] [place], [address] Bilirubin.direct [Mass/Vol] 0.26 mg/dL Normal 0.00-0.30 Comment on above: Performed By: #### L 500.3400, L500.4100 #### [address] [place], [address] Globulin (S) [Mass/Vol] 2.7 g/dL Normal 2.2-4.2 [facility] Comment on above: Performed By: #### L 500.3400, L500.4100 #### [address] [place], [address] T PROT 6.8 g/dL Normal 5.9-8.4 Comment on above: Performed By: #### L 500.3400, L500.4100 #### [address] [place], [address] CBC W/Diff, Automatedon 10-1 Absolute Lymph 0.87 X10 3/uL Normal 0.83-4.51 Comment on above: Performed By: #### L 501.9520, L500.4050, L100.0100 #### [facility] [address] [place], [address] Absolute Neut 4.0 X10 3/uL Normal 2.0-7.7 Comment on above: Performed By: #### L 501.9520, L500.4050, L100.0100 #### [facility] [address] [place], [address] Basophils/100 WBC (Bld) 1.8 % High 0-1 [facility] Comment on above: Performed By: #### L 501.9520, L500.4050, L100.0100 #### [facility] [address] [place], [address] Eosinophils/100 WBC (Bld) 8.2 % High 0-5 Comment on above: Performed By: #### L 501.9520, L500.4050, L100.0100 #### [facility] [address] [place], [address] Erythrocyte distribution width (RBC) [Ratio] 13.4 % Normal 11.6-14.6 Comment on above: Performed By: #### L 501.9520, L500.4050, L100.0100 #### [facility] [address] [place], [address] Hematocrit (Bld) [Volume fraction] 40.3 % Normal 37-47 Comment on above: Performed By: #### L 501.9520, L500.4050, L100.0100 #### [facility] [address] [place], [address] Hemoglobin (Bld) [Mass/Vol] 13.3 g/dL Normal 12.0-15.0 Comment on above: Performed By: #### L 501.9520, L500.4050, L100.0100 #### [facility] [address] [place], [address] IG% 0.800 Normal 0.0-0.9 Comment on above: Result Comment: IG% - Immature Granulocytes (promyelocytes, myelocytes and metamyelocytes) > 1% indicates that a LEFT SHIFT is Present. Performed By: #### L 501.9520, L500.4050, L100.0100 #### [facility] [address] [place], [address] Lymphocytes/100 WBC (Bld) 14.5 % Low 19-41 Comment on above: Performed By: #### L 501.9520, L500.4050, L100.0100 #### [facility] [address] [place], [address] MCH (RBC) [Entitic mass] 30.7 pg Normal 27.0-32.0 Comment on above: Performed By: #### L 501.9520, L500.4050, L100.0100 #### [facility] [address] [place], [address] MCHC (RBC) [Mass/Vol] 33.0 g/dL Normal 32-36 [facility] Comment on above: Performed By: #### L 501.9520, L500.4050, L100.0100 #### [facility] [address] [place], [address] MCV (RBC) [Entitic vol] 93.1 fL Normal 81-99 [facility] Comment on above: Performed By: #### L 501.9520, L500.4050, L100.0100 #### [facility] [address] [place], [address] Monocytes/100 WBC (Bld) 9.0 % Normal 0-10 [facility] Comment on above: Performed By: #### L 501.9520, L500.4050, L100.0100 #### [facility] [address] [place], [address] Neutrophils/100 WBC (Bld) 65.7 % Normal 47-70 Comment on above: Performed By: #### L 501.9520, L500.4050, L100.0100 #### [facility] [address] [place], [address] Nucleated RBC (Bld) [#/Vol] 0 10*3/uL Normal 0-5 Comment on above: Performed By: #### L 501.9520, L500.4050, L100.0100 #### [facility] [address] [place], [address] Platelet mean volume (Bld) [Entitic vol] 9.9 fL Normal 6.2-12.0 Comment on above: Performed By: #### L 501.9520, L500.4050, L100.0100 #### [facility] [address] [place], [address] Platelets (Bld) [#/Vol] 214 10*3/uL Normal 150-450 Comment on above: Performed By: #### L 501.9520, L500.4050, L100.0100 #### [facility] [address] [place], [address] RBC (Bld) [#/Vol] 4.33 10*6/uL Normal 4.2-5.4 [facility] Comment on above: Performed By: #### L 501.9520, L500.4050, L100.0100 #### [facility] [address] [place], [address] RDW SD 45.7 fl High 35.1-43.9 Comment on above: Performed By: #### L 501.9520, L500.4050, L100.0100 #### [facility] [address] [place], [address] WBC (Bld) [#/Vol] 6.0 10*3/uL Normal 4.4-11.0 [facility] Comment on above: Performed By: #### L 501.9520, L500.4050, L100.0100 #### [facility] [address] [place], [address] Comprehensive Metabolic Prof ilon 06-19-2025 Albumin [Mass/Vol] 4.2 g/dL Normal 3.4-4.8 [facility] Comment on above: Performed By: #### L 501.9520, L500.4050, L100.0100 #### [facility] [address] [place], [address] Albumin/Globulin [Mass ratio] 1.4 {ratio} Normal 0.9-2.4 Comment on above: Performed By: #### L 501.9520, L500.4050, L100.0100 #### [facility] [address] [place], [address] ALK PHOS 54 U/L Normal 35-104 Comment on above: Performed By: #### L 501.9520, L500.4050, L100.0100 #### [facility] [address] [place], [address] ALT [Catalytic activity/Vol] 9 U/L Normal <=34 Comment on above: Performed By: #### L 501.9520, L500.4050, L100.0100 #### [facility] [address] [place], [address] AST [Catalytic activity/Vol] 23 U/L Normal <=31 Comment on above: Performed By: #### L 501.9520, L500.4050, L100.0100 #### [facility] [address] [place], [address] Bilirubin [Mass/Vol] 0.49 mg/dL Normal 0.00-1.30 [facility] Comment on above: Performed By: #### L 501.9520, L500.4050, L100.0100 #### [facility] [address] [place], [address] BUN/CRE 22.0 RATIO High 10-20 Comment on above: Performed By: #### L 501.9520, L500.4050, L100.0100 #### [facility] [address] [place], [address] Calcium [Mass/Vol] 9.7 mg/dL Normal 7.6-11.0 [facility] Comment on above: Performed By: #### L 501.9520, L500.4050, L100.0100 #### [facility] [address] [place], [address] Chloride [Moles/Vol] 96 mmol/L Low 98-108 [facility] Comment on above: Performed By: #### L 501.9520, L500.4050, L100.0100 #### [facility] [address] [place], [address] CO2 [Moles/Vol] 27.4 mmol/L Normal 21.0-32.0 Comment on above: Performed By: #### L 501.9520, L500.4050, L100.0100 #### [facility] [address] [place], [address] Creatinine [Mass/Vol] 0.99 mg/dL Normal 0.70-1.20 [facility] Comment on above: Performed By: #### L 501.9520, L500.4050, L100.0100 #### [facility] [address] [place], [address] GAP 8 Normal 5-15 Comment on above: Performed By: #### L 501.9520, L500.4050, L100.0100 #### [facility] [address] [place], [address] GFR/1.73 sq M.predicted among non-blacks MDRD (S/P/Bld) [Vol rate/Area] 54 mL/min/{1.73_m2} Low >60 [facility] Comment on above: Result Comment: mL/m in/1.73m2 CKD-EPI Creatinine Equation (2020) Performed By: #### L 501.9520, L500.4050, L100.0100 #### Laboratory [address] [place], [address] Globulin (S) [Mass/Vol] 3.0 g/dL Normal 2.2-4.2 [facility] Comment on above: Performed By: #### L 501.9520, L500.4050, L100.0100 #### [facility] [address] [place], [address] Glucose [Mass/Vol] 96 mg/dL Normal 70-99 [facility] Comment on above: Performed By: #### L 501.9520, L500.4050, L100.0100 #### Laboratory [address] [place], [address] Potassium [Moles/Vol] 5.2 mmol/L High 3.3-5.1 [facility] Comment on above: Performed By: #### L 501.9520, L500.4050, L100.0100 #### [facility] [address] [place], [address] Sodium [Moles/Vol] 132 mmol/L Low 133-145 [facility] Comment on above: Performed By: #### L 501.9520, L500.4050, L100.0100 #### [facility] [address] [place], [address] T PROT 7.2 g/dL Normal 5.9-8.4 Comment on above: Performed By: #### L 501.9520, L500.4050, L100.0100 #### [facility] [address] [place], [address] Urea nitrogen [Mass/Vol] 22 mg/dL High 4-19 Comment on above: Performed By: #### L 501.9520, L500.4050, L100.0100 #### [facility] [address] [place], [address] Thyroid Stim Hormone (TSH)on 06-19-2025 TSH 2.960 uIU/mL Normal 0.300-4.200 Comment on above: Performed By: #### L 501.9520, L500.4050, L100.0100 #### Laboratory [address] [place], [address] Internal Medicine Office Vis iton 06-03-2025 Internal Medicine Office Visit [facility] Internal Medicine [address] [place] [address] [place] [address] OFFICE VISIT Date of Service: 06/03/25 MR#: [id number] Acct: [id number] Name: JACKMARISA Boogie Rep #: [id number] : 1935 Provider: Dr. Elizabeth demarco MD Age/Sex: 89/F Location: [facility] Status: Signed Intake Vital Signs 01/02/25 13:03 03/28/25 08:44 06/03/25 11:20 Height 5 ft 8 in 5 ft 8 in 5 ft 8 in Weight: 158 lb BMI 24.0 BP 122/60 H Blood Pressure Location Lt brachial Position Sitting Respiration 18 Pulse 74 Pulse Source Monitor Temp 96.5 F L Temp Source Temporal Pulse Oximetry (%) 92 Oxygen Delivery Method room air Intake Visit Reasons: 5 M Chief Complaint: 5 M Accompanied by: Caregiver Is patient in pain?: No Allergies Environmental Allergies: Uncoded Allergy (Mild, Verified 06/03/25 11:15) sneezing latex Adverse Reaction (Verified 06/03/25 11:15) Itching sulfamethoxazole (From Bactrim) Adverse Reaction (Verified 06/03/25 11:15) Nausea trimethoprim (From Bactrim) Adverse Reaction (Verified 06/03/25 11:15) Nausea Medications ???Medication ???Instructions ???Recorded ???Confirmed ???Type [id number] 0.4 mg-calcium 162 1 ea PO DAILY supplement 9 06/03/25 History mg-iron 18 au-bzbacjy-yjpbgm tablet ascorbic acid (vitamin C) 1,000 mg 1 g PO DAILY supplement #1 TAB 0 12/15/23 06/03/25 Rx tablet (Vitamin C) donepezil 5 mg tablet 5 mg PO QHS memory #90 tabs 06/03/25 Rx Handicap Placard #1 ea 07/27/24 06/03/25 Rx aspirin 81 mg tablet,delayed 81 mg PO QDAY 01/02/25 06/03/25 Hi story release (Adult Aspirin Regimen) levothyroxine 75 mcg tablet 75 mcg PO 2XW thyroid #60 tabs 10/3006/03/25 Rx lisinopril 2.5 mg tablet 2.5 mg PO QHS #90 tabs 02/04/25 Rx Held on 06/06/25. Instructions: Home Medication placed on hold at Doctor's office escitalopram oxalate 5 mg tablet 5 mg PO DAILY anxiety #90 tabs 05/3006/03/25 Rx levothyroxine 50 mcg tablet 50 mcg PO 5XW thyroid #90 tabs 06/2906/03/25 Rx pantoprazole 40 mg tablet,delayed 40 mg PO DAILY #90 tabs 05/15/25 06/03/25 Rx release acetaminophen 500 mg tablet 1,000 mg PO 0900,1500,2000 pain 06/03/25 History 1-10 Have you fallen in the past year?: Yes (x1) [facility] Medical History (Updated 06/03/25 @ 12:[address] Elizabeth Cai MD) Flu vaccine need Excoriation (skin-picking) disorder History of UTI Dementia with agitation Dementia Right clavicle fracture Chronic anticoagulation Fall Fracture of right superior pubic ramus Fracture of right inferior pubic ramus Pacemaker lead malfunction Flu vaccine need Distal radius fracture Open wound of left ring finger Anxiety and depression GI bleed Parathyroid disorder Hearing problem Goiter Carpal tunnel syndrome Allergies Iron deficiency anemia Hyperlipidemia Hypertension Hypothyroidism Atrial fibrillation Right hemiparesis CVA (cerebral vascular accident) Rheumatoid arthritis Stroke/cerebrovascu lar accident Wears glasses 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 Arthritis History of GI bleed History of IBS Non-smoker History of stress test Cardiology follow-up encounter BRBPR (bright red blood per rectum) Microscopic colitis Osteoarthritis Vertigo Persistent atrial fibrillation Concussion Closed head injury Hypothyroidism Fall Periorbital edema of left eye Fracture of metacarpal base, first, right hand, closed Personal history of colonic polyps Complete heart block Sick sinus syndrome Nonrheumatic mitral valve insufficiency Anemia Asthma Essential (primary) hypertension Thyroid storm Hyperlipidemia Ulcer of right lower extremity with fat layer exposed Venous insufficiency Malnutrition Delayed wound healing Edema leg Ulcer of left lower extremity with fat layer exposed Mild intermittent asthma Microscopic colitis Acquired hypothyroidism Surgical History Status post placement of cardiac pacemaker H/O thyroidectomy History of knee replacement History of right hip replacement History of permanent cardiac pacemaker placement H/O thyroidectomy Family History Father CAD (coronary artery disease) Brother Cancer Leukemia Brother Epilepsy Mother Colon cancer Other CVA (cerebral vascular accident) Diabetes Social History household members: none and other details: 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 Normal Urine Cultureon 04-19-2025 URC Mixed Gram Positive Organisms Davis Count 25,000-50,000 MIXC Mixed contaminants. Submit a new specimen if indicated. Normal Comment on above: Performed By: #### L 400.0001, M100.2200 #### [id number] [place], [place], [id number] Bilirubin Test strip Ql (U)O rdered By: [place]ri [place] on 04-16-2025 Bilirubin Ql (U) Negative Negative Ketones Test strip Ql (U)Ord ered By: Capri [place] on 04-16-2025 Ketones Ql (U) Negative Negative Microscopic analysis of urin e for red blood cells (RBC)Ordered By: Capri [place] on 04-16-2025 Microscopic analysis of urine for red blood cells (RBC) 0-5 SEEN /hpf 0-5 Mucus LM Ql (Urine sed)Order ed By: Capri [place] on 04-16-2025 Mucus Ql (Urine sed) 0 SEEN /hpf [facility] Nitrite Test strip Ql (U)Ord ered By: Capri [place] on 04-16-2025 Nitrite Ql (U) Negative Negative Protein Test strip Ql (U)Ord ered By: [place]ri [place] on 04-16-2025 Protein Ql (U) 30 mg/dl High Negative Squamous epithelial cells de tection in urine sediment by light microscopyOrdered By: Capri [place] on 04-16-2025 Epithelial cells.squamous LM Ql (Urine sed) 5-10 SEEN /hpf 5-10 Transitional cells detection in urine sediment by light microscopyOrdered By: Capri Vail on 04-16-2025 Transitional cells LM Ql (Urine sed) 0-5 SEEN /hpf 0-5 Urinalysis, Completeon 04-16 RBC 0-5 SEEN Normal 0-5 Comment on above: Order Comment: RODRÍGUEZ CTOR TO SPECIFY Performed By: #### L 400.0001, M100.2200 #### [id number] [place], [place], [id number] EPI,SQUAMOUS 5-10 SEEN Normal 5-10 Comment on above: Order Comment: RODRÍGUEZ CTOR TO SPECIFY Performed By: #### L 400.0001, M100.2200 #### [id number] [place], [address] EPI,TRANSITION 0-5 SEEN Normal 0-5 Comment on above: Order Comment: RODRÍGUEZ CTOR TO SPECIFY Performed By: #### L 400.0001, M100.2200 #### [id number] [place], [address] BACTERIA 0 SEEN Normal None Seen Comment on above: Order Comment: RODRÍGUEZ CTOR TO SPECIFY Performed By: #### L 400.0001, M100.2200 #### [address] [place], [address] Mucus Ql (Urine sed) 0 SEEN Normal [facility] Comment on above: Order Comment: RODRÍGUEZ CTOR TO SPECIFY Performed By: #### L 400.0001, M100.2200 #### [address] [place], [address] WBC 0 SEEN Normal 0-5 Comment on above: Order Comment: RODRÍGUEZ CTOR TO SPECIFY Performed By: #### L 400.0001, M100.2200 #### [id number] [place], [address] Urine clarityOrdered By: Krys Vail on 04-16-2025 Clarity (U) Sl. Cloudy Clear Urine color determinationOrd ered By: Capri Vail on 04-16-2025 Color (U) Yellow Yellow Urine cultureOrdered By: Krys Vail on 04-16-2025 Bacteria identified Cx Nom (U) Positive Abnormal Urine glucose detectionOrder ed By: Capri Vail on 04-16-2025 Glucose Ql (U) Normal mg/dl Normal Urine leukocyte esterase det ection by dipstickOrdered By: Capri Vail on 04-16-2025 Leukocyte esterase Test strip Ql (U) Negative Negative Urine pHOrdered By: Capri Vail on 04-16-2025 pH (U) 6.0 [pH] 5.0 - 8.0 Urine sediment bacteria coun t by microscopy (number/high power field)Ordered By: Capri Vail on 04-16-2025 Bacteria LM.HPF (Urine sed) [#/Area] 0 /[HPF] None Seen Urine specific gravity measu rementOrdered By: Capri Vail on 04-16-2025 Specific gravity (U) [Rel density] 1.020 1.002-1.030 Urine urobilinogen measureme ntOrdered By: Capri Vail on 04-16-2025 Urobilinogen Ql (U) Normal mg/dl Normal [facility] White blood cell countOrdere d By: Capri Vail on 04-16-2025 White blood cell count 0 SEEN /hpf 0-5 [facility] Urine Cultureon 03-31-2025 URC Mixed Gram Pos Gram Neg Org Davis Count 11,000-25,000 MIXC Mixed contaminants. Submit a new specimen if indicated. Normal Comment on above: Performed By: #### M 100.2200, L400.0001 #### Laboratory [address] [place], [address] Bilirubin Test strip Ql (U)O rdered By: Capri Vail on 03-28-2025 Bilirubin Ql (U) Negative Negative Internal Medicine Office Vis iton 03-28-2025 Internal Medicine Office Visit [facility] [address] [place] [address] [address] [place] [address] OFFICE VISIT Date of Service: 03/28/25 MR#: [id number] Acct: [id number] Name: JACKMARISA Boogie Rep #: [id number] : 1935 Provider: ELIJAH mccoy Age/Sex: 89/F Location: [facility] Status: Signed Intake Vital Signs 01/02/25 13:03 03/28/25 08:44 Height 5 ft 8 in 5 ft 8 in Weight: 155 lb BMI 23.6 BP 114/68 Blood Pressure Location Lt brachial Position Sitting Respiration 16 Pulse 69 Pulse Source Monitor Temp 97.2 F L Temp Source Temporal Pulse Oximetry (%) 94 Oxygen Delivery Method room air Intake Visit Reasons: possible uti Chief Complaint: Confusion 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: No Accompanied by: 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 Manager Is patient in pain?: No Allergies Environmental Allergies: Uncoded Allergy (Mild, Verified 03/28/25 08:46) sneezing latex Adverse Reaction (Verified 03/28/25 08:46) Itching sulfamethoxazole (From Bactrim) Adverse Reaction (Verified 03/28/25 08:46) Nausea trimethoprim (From Bactrim) Adverse Reaction (Verified 03/28/25 08:46) Nausea Medications ???Medication ???Instructions ???Recorded ???Confirmed ???Type esmckirp-rlg-DQ 0.4 mg-calcium 162 1 ea PO DAILY supplement 9 03/28/25 History mg-iron 18 om-kvdnoop-jtaagb tablet ascorbic acid (vitamin C) 1,000 mg 1 g PO DAILY supplement #1 TAB 0 12/15/23 03/28/25 Rx tablet (Vitamin C) donepezil 5 mg tablet 5 mg PO QHS memory #90 tabs 03/28/25 Rx Handicap Placard #1 ea 07/27/24 03/28/25 Rx acetaminophen 500 mg tablet 1,000 mg PO 0900,1500,2000 PRN 01/2703/28/25 History pain 1-10 aspirin 81 mg tablet,delayed 81 mg PO QDAY 01/02/25 03/28/25 Hi story release (Adult Aspirin Regimen) levothyroxine 50 mcg tablet 50 mcg PO 5XW thyroid #90 tabs 10/3003/28/25 Rx levothyroxine 75 mcg tablet 75 mcg PO 2XW thyroid #60 tabs 10/3003/28/25 Rx lisinopril 2.5 mg tablet 2.5 mg PO QHS #90 tabs 02/04/25 Rx pantoprazole 40 mg tablet,delayed 40 mg PO DAILY #90 tabs 02/04/25 03/28/25 Rx release escitalopram oxalate 5 mg tablet 5 mg PO DAILY anxiety #90 tabs 05/3003/28/25 Rx Have you fallen in the past year?: No Nurse's Note: Concern for UTI as she is experiencing more confusion than normal. [facility] Medical History Dementia Right clavicle fracture Chronic anticoagulation Fall Fracture of right superior pubic ramus Fracture of right inferior pubic ramus Pacemaker lead malfunction Flu vaccine need Distal radius fracture Open wound of left ring finger Anxiety and depression GI bleed Parathyroid disorder Hearing problem Goiter Carpal tunnel syndrome Allergies Iron deficiency anemia Hyperlipidemia Hypertension Hypothyroidism Atrial fibrillation Right hemiparesis CVA (cerebral vascular accident) Rheumatoid arthritis Stroke/cerebrovascu lar accident Wears glasses 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 Arthritis History of GI bleed History of IBS Non-smoker History of stress test Cardiology follow-up encounter BRBPR (bright red blood per rectum) Microscopic colitis Osteoarthritis Vertigo Persistent atrial fibrillation Concussion Closed head injury Hypothyroidism Fall Periorbital edema of left eye Fracture of metacarpal base, first, right hand, closed Personal history of colonic polyps Complete heart block Sick sinus syndrome Nonrheumatic mitral valve insufficiency Anemia Asthma Essential (primary) hypertension Thyroid storm Hyperlipidemia Ulcer of right lower extremity with fat layer exposed Venous insufficiency Malnutrition Delayed wound healing Edema leg Ulcer of left lower extremity with fat layer exposed Mild intermittent asthma Microscopic colitis Acquired hypothyroidism Surgical History Status post placement of cardiac pacemaker H/O thyroidectomy History of knee replacement History of right hip replacement History of permanent cardiac pacemaker placement H/O thyroidectomy Family History Father CAD (coronary artery disease) Brother Cancer Leukemia Brother Epilepsy Mother Colon cancer Other CVA (cerebral vascular accident) Diabetes Social History household members: none and other details: 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 Normal Ketones Test strip Ql (U)Ord ered By: Capri Vail on 03-28-2025 Ketones Ql (U) Negative Negative Microscopic analysis of urin e for red blood cells (RBC)Ordered By: Capri Vail on 03-28-2025 Microscopic analysis of urine for red blood cells (RBC) 0-5 SEEN /hpf 0-5 Mucus LM Ql (Urine sed)Order ed By: Capri Vail on 03-28-2025 Mucus Ql (Urine sed) 0 SEEN /hpf [facility] Nitrite Test strip Ql (U)Ord ered By: Capri Vail on 03-28-2025 Nitrite Ql (U) Negative Negative Protein Test strip Ql (U)Ord ered By: Capri Vail on 03-28-2025 Protein Ql (U) 15 mg/dl High Negative Squamous epithelial cells de tection in urine sediment by light microscopyOrdered By: Capri Vail on 03-28-2025 Epithelial cells.squamous LM Ql (Urine sed) 0-5 SEEN /hpf 5-10 Transitional cells detection in urine sediment by light microscopyOrdered By: Capri Vail on 03-28-2025 Transitional cells LM Ql (Urine sed) 0-5 SEEN /hpf 0-5 Urinalysis, Completeon 03-28 BACTERIA 1+ /hpf Normal None Seen Comment on above: Order Comment: RODRÍGUEZ CTOR TO SPECIFY Performed By: #### M 100.2200, L400.0001 #### Laboratory [address] [place], [address] EPI,SQUAMOUS 0-5 SEEN Normal 5-10 Comment on above: Order Comment: RODRÍGUEZ CTOR TO SPECIFY Performed By: #### M 100.2200, L400.0001 #### Laboratory [address] [place], [address] EPI,TRANSITION 0-5 SEEN Normal 0-5 Comment on above: Order Comment: RODRÍGUEZ CTOR TO SPECIFY Performed By: #### M 100.2200, L400.0001 #### Laboratory [address] [place], [address] RBC 0-5 SEEN Normal 0-5 Comment on above: Order Comment: RODRÍGUEZ CTOR TO SPECIFY Performed By: #### M 100.2200, L400.0001 #### Laboratory [address] [place], [address] WBC 5-10 SEEN Normal 0-5 Comment on above: Order Comment: RODRÍGUEZ CTOR TO SPECIFY Performed By: #### M 100.2200, L400.0001 #### Laboratory [address] [place], [address] Mucus Ql (Urine sed) 0 SEEN Normal [facility] Comment on above: Order Comment: RODRÍGUEZ CTOR TO SPECIFY Performed By: #### M 100.2200, L400.0001 #### Laboratory [address] [place], [address] Urine clarityOrdered By: Krys Vail on 03-28-2025 Clarity (U) Clear Clear Urine color determinationOrd ered By: Capri Vail on 03-28-2025 Color (U) Straw Yellow Urine cultureOrdered By: Krys Vail on 03-28-2025 Bacteria identified Cx Nom (U) Mixed Gram Pos & Gram Neg Org Abnormal Urine glucose detectionOrder ed By: Capri Vail on 03-28-2025 Glucose Ql (U) Normal mg/dl Normal Urine leukocyte esterase det ection by dipstickOrdered By: Capri Vail on 03-28-2025 Leukocyte esterase Test strip Ql (U) 25 /ul High Negative Urine pHOrdered By: Capri Vail on 03-28-2025 pH (U) 6.0 [pH] 5.0 - 8.0 Urine sediment bacteria coun t by microscopy (number/high power field)Ordered By: Capri Vail on 03-28-2025 Bacteria LM.HPF (Urine sed) [#/Area] 1 /[HPF] None Seen Urine specific gravity measu rementOrdered By: Capri Vail on 03-28-2025 Specific gravity (U) [Rel density] 1.015 1.002-1.030 Urine urobilinogen measureme ntOrdered By: Capri Fariaprosperrah on 03-28-2025 Urobilinogen Ql (U) Normal mg/dl Normal [facility] White blood cell countOrdere d By: Capri Genna on 03-28-2025 White blood cell count 5-10 SEEN /hpf 0-5 Absolute lymphocyte countOrd ered By: Elizabeth Cai on 01-02-2025 Lymphocytes Auto (Unsp spec) [#/Vol] 1.07 10*3/uL 0.83-4.51 Absolute neutrophil countOrd ered By: Annafairbankyannick Cai on 01-02-2025 Neutrophils (Bld) [#/Vol] 5.2 10*3/uL 2.0-7.7 Anion gap in Serum or Plasma Ordered By: Elizabeth Cai on 01-02-2025 Anion gap [Moles/Vol] 10 mmol/L 5-15 [facility] Automated lymphocyte count a s percentage of total leukocytesOrdered By: Elizabeth Cai on 01-02-2025 Lymphocytes/100 WBC Auto (Unsp spec) 14.4 % Low 19-41 BUN/creatinine ratioOrdered By: Elizabeth Cai on 01-02-2025 Urea nitrogen/Creatinine [Mass ratio] 28.9 mg/mg High 10-20 Basophil percentageOrdered B y: Elizabeht Cai on 01-02-2025 Basophils/100 WBC (Bld) 1.6 % High 0-1 [facility] Bilirubin, totalOrdered By: Elizabeth Cai on 01-02-2025 Bilirubin [Mass/Vol] 0.40 mg/dL 0.00-1.30 [facility] CBC W/Diff, Automatedon 12-06 Absolute Lymph 1.07 X10 3/uL Normal 0.83-4.51 Comment on above: Performed By: #### L 100.0100, L501.9520, L500.4050 #### [id number] [place], [address] Absolute Neut 5.2 X10 3/uL Normal 2.0-7.7 Comment on above: Performed By: #### L 100.0100, L501.9520, L500.4050 #### [address] [place], [address] Basophils/100 WBC (Bld) 1.6 % High 0-1 [facility] Comment on above: Performed By: #### L 100.0100, L501.9520, L500.4050 #### [address] [place], [address] Eosinophils/100 WBC (Bld) 4.2 % Normal 0-5 Comment on above: Performed By: #### L 100.0100, L501.9520, L500.4050 #### [address] [place], [address] Erythrocyte distribution width (RBC) [Ratio] 13.2 % Normal 11.6-14.6 Comment on above: Performed By: #### L 100.0100, L501.9520, L500.4050 #### [address] [place], [address] Hematocrit (Bld) [Volume fraction] 40.9 % Normal 37-47 Comment on above: Performed By: #### L 100.0100, L501.9520, L500.4050 #### [address] [place], [address] Hemoglobin (Bld) [Mass/Vol] 13.3 g/dL Normal 12.0-15.0 Comment on above: Performed By: #### L 100.0100, L501.9520, L500.4050 #### [address] [place], [address] IG% 0.500 Normal 0.0-0.9 Comment on above: Result Comment: IG% - Immature Granulocytes (promyelocytes, myelocytes and metamyelocytes) > 1% indicates that a LEFT SHIFT is Present. Performed By: #### L 100.0100, L501.9520, L500.4050 #### [address] [place], [address] Lymphocytes/100 WBC (Bld) 14.4 % Low 19-41 Comment on above: Performed By: #### L 100.0100, L501.9520, L500.4050 #### [address] [place], [address] MCH (RBC) [Entitic mass] 30.1 pg Normal 27.0-32.0 Comment on above: Performed By: #### L 100.0100, L501.9520, L500.4050 #### [address] [place], [address] MCHC (RBC) [Mass/Vol] 32.5 g/dL Normal 32-36 [facility] Comment on above: Performed By: #### L 100.0100, L501.9520, L500.4050 #### [address] [place], [address] MCV (RBC) [Entitic vol] 92.5 fL Normal 81-99 [facility] Comment on above: Performed By: #### L 100.0100, L501.9520, L500.4050 #### [address] [place], [address] Monocytes/100 WBC (Bld) 9.2 % Normal 0-10 [facility] Comment on above: Performed By: #### L 100.0100, L501.9520, L500.4050 #### [address] [place], [address] Neutrophils/100 WBC (Bld) 70.1 % High 47-70 Comment on above: Performed By: #### L 100.0100, L501.9520, L500.4050 #### [address] [place], [address] Nucleated RBC (Bld) [#/Vol] 0 10*3/uL Normal 0-5 Comment on above: Performed By: #### L 100.0100, L501.9520, L500.4050 #### [address] [place], [address] Platelet mean volume (Bld) [Entitic vol] 11.4 fL Normal 6.2-12.0 Comment on above: Performed By: #### L 100.0100, L501.9520, L500.4050 #### [address] [place], [address] Platelets (Bld) [#/Vol] 184 10*3/uL Normal 150-450 Comment on above: Performed By: #### L 100.0100, L501.9520, L500.4050 #### [address] [place], [address] RBC (Bld) [#/Vol] 4.42 10*6/uL Normal 4.2-5.4 [facility] Comment on above: Performed By: #### L 100.0100, L501.9520, L500.4050 #### [address] [place], [address] RDW SD 45.4 fl High 35.1-43.9 Comment on above: Performed By: #### L 100.0100, L501.9520, L500.4050 #### [address] [place], [address] WBC (Bld) [#/Vol] 7.4 10*3/uL Normal 4.4-11.0 [facility] Comment on above: Performed By: #### L 100.0100, L501.9520, L500.4050 #### [address] [place], [address] Carbon dioxide, total [Moles /volume] in Central venous bloodOrdered By: Elizabeth Cai on 01-02-2025 CO2 [Moles/Vol] 26.9 mmol/L 21.0-32.0 Chloride assayOrdered By: Dolores Cai on 01-02-2025 Chloride [Moles/Vol] 103 mmol/L 98-108 [facility] Comprehensive Metabolic Prof ilon 01-02-2025 Albumin [Mass/Vol] 3.8 g/dL Normal 3.4-4.8 [facility] Comment on above: Performed By: #### L 100.0100, L501.9520, L500.4050 #### [address] [place], [address] Albumin/Globulin [Mass ratio] 1.2 {ratio} Normal 0.9-2.4 Comment on above: Performed By: #### L 100.0100, L501.9520, L500.4050 #### [address] [place], [address] ALK PHOS 63 U/L Normal 35-104 Comment on above: Performed By: #### L 100.0100, L501.9520, L500.4050 #### [address] [place], [address] ALT [Catalytic activity/Vol] 9 U/L Normal <=34 Comment on above: Performed By: #### L 100.0100, L501.9520, L500.4050 #### [address] [place], [address] AST [Catalytic activity/Vol] 21 U/L Normal <=31 Comment on above: Performed By: #### L 100.0100, L501.9520, L500.4050 #### [address] [place], [address] Bilirubin [Mass/Vol] 0.40 mg/dL Normal 0.00-1.30 [facility] Comment on above: Performed By: #### L 100.0100, L501.9520, L500.4050 #### [address] [place], [address] BUN/CRE 28.9 RATIO High 10-20 Comment on above: Performed By: #### L 100.0100, L501.9520, L500.4050 #### [address] [place], [address] Calcium [Mass/Vol] 9.2 mg/dL Normal 7.6-11.0 [facility] Comment on above: Performed By: #### L 100.0100, L501.9520, L500.4050 #### [address] [place], [address] Chloride [Moles/Vol] 103 mmol/L Normal 98-108 [facility] Comment on above: Performed By: #### L 100.0100, L501.9520, L500.4050 #### [address] [place], [address] CO2 [Moles/Vol] 26.9 mmol/L Normal 21.0-32.0 Comment on above: Performed By: #### L 100.0100, L501.9520, L500.4050 #### [address] [place], [address] Creatinine [Mass/Vol] 0.84 mg/dL Normal 0.70-1.20 [facility] Comment on above: Performed By: #### L 100.0100, L501.9520, L500.4050 #### [address] [place], [address] GAP 10 Normal 5-15 Comment on above: Performed By: #### L 100.0100, L501.9520, L500.4050 #### [address] [place], [address] GFR/1.73 sq M.predicted among non-blacks MDRD (S/P/Bld) [Vol rate/Area] 67 mL/min/{1.73_m2} Normal >60 [facility] Comment on above: Result Comment: mL/m in/1.73m2 CKD-EPI Creatinine Equation (2020) Performed By: #### L 100.0100, L501.9520, L500.4050 #### [address] [place], [address] Globulin (S) [Mass/Vol] 3.2 g/dL Normal 2.2-4.2 [facility] Comment on above: Performed By: #### L 100.0100, L501.9520, L500.4050 #### [address] [place], [address] Glucose [Mass/Vol] 95 mg/dL Normal 70-99 [facility] Comment on above: Performed By: #### L 100.0100, L501.9520, L500.4050 #### [address] [place], [address] Potassium [Moles/Vol] 4.6 mmol/L Normal 3.3-5.1 [facility] Comment on above: Performed By: #### L 100.0100, L501.9520, L500.4050 #### [address] [place], [address] Sodium [Moles/Vol] 140 mmol/L Normal 133-145 [facility] Comment on above: Performed By: #### L 100.0100, L501.9520, L500.4050 #### [address] [place], [address] T PROT 7.0 g/dL Normal 5.9-8.4 Comment on above: Performed By: #### L 100.0100, L501.9520, L500.4050 #### [address] [place], [address] Urea nitrogen [Mass/Vol] 24 mg/dL High 4-19 Comment on above: Performed By: #### L 100.0100, L501.9520, L500.4050 #### [address] [place], [address] Eosinophil percentageOrdered By: Elizabeth Cai on 01-02-2025 Eosinophils/100 WBC (Bld) 4.2 % 0-5 Erythrocyte distribution wid th ratioOrdered By: Elizabeth Cai on 01-02-2025 Erythrocyte distribution width (RBC) [Ratio] 13.2 % 11.6-14.6 Erythrocyte distribution wid th standard deviationOrdered By: Elizabeth Cai on 01-02-2025 Erythrocyte distribution width (RBC) [Ratio] 45.4 fl High 35.1-43.9 Glomerular filtration rate ( GFR) estimation/1.73 sq m using serum, plasma, or whole bOrdered By: Elizabeht Cai on 01-02-2025 GFR/1.73 sq M.predicted among non-blacks MDRD (S/P/Bld) [Vol rate/Area] 67 mL/min/{1.73_m2} >60 [facility] Comment on above: mL/min/1.73m2 CKD-EP I Creatinine Equation (2020) Hematocrit Auto (Bld) [Volum e fraction]Ordered By: Elizabeth Cai on 01-02-2025 Hematocrit (Bld) [Volume fraction] 40.9 % 37-47 Hemoglobin measurementOrdere d By: Elizabeth Cai on 01-02-2025 Hemoglobin (Bld) [Mass/Vol] 13.3 g/dL 12.0-15.0 Immature granulocytes/100 WB C Auto (Bld)Ordered By: Elizabeth Cai on 01-02-2025 Immature granulocytes/100 WBC (Bld) 0.500 % 0.0-0.9 Comment on above: IG% - Immature Granu locytes (promyelocytes, myelocytes and metamyelocytes) > 1% indicates that a LEFT SHIFT is Present. Internal Medicine Office Vis itocarito 01-02-2025 Internal Medicine Office Visit [facility] [address] [place] [address] [place] [address] OFFICE VISIT Date of Service: 01/02/25 MR#: [id number] Acct: [id number] Name: MARISA SANTIAGO Rep #: [id number] : 1935 Provider: Dr. Elizabeth demarco MD Age/Sex: 89/F Location: [facility] Status: Signed Intake Vital Signs 07/27/24 11:25 11/29/24 11:48 01/02/25 13:03 Height 5 ft 8 in 5 ft 8 in 5 ft 8 in Weight: 158 lb BMI 24.0 BP 122/80 H Blood Pressure Location Lt brachial Position Sitting Respiration 18 Pulse 70 Pulse Source Monitor Temp 97.8 F Temp Source Temporal Pulse Oximetry (%) 98 Oxygen Delivery Method room air Intake Visit Reasons: 5 M Chief Complaint: 5 M Is patient in pain?: No Allergies Environmental Allergies: Uncoded Allergy (Mild, Verified 01/02/25 13:03) sneezing latex Adverse Reaction (Verified 01/02/25 13:03) Itching sulfamethoxazole (From Bactrim) Adverse Reaction (Verified 01/02/25 13:03) Nausea trimethoprim (From Bactrim) Adverse Reaction (Verified 01/02/25 13:03) Nausea Medications ???Medication ???Instructions ???Recorded ???Confirmed ???Type [id number]-JK 0.4 mg-calcium 162 1 ea PO DAILY supplement 9 01/02/25 History mg-iron 18 jm-efnqpue-ngdrxx tablet ascorbic acid (vitamin C) 1,000 mg 1 g PO DAILY supplement #1 TAB 0 12/15/23 01/02/25 Rx tablet (Vitamin C) lisinopril 2.5 mg tablet 2.5 mg PO QHS #90 tabs 05/14/24 Rx pantoprazole 40 mg tablet,delayed 40 mg PO DAILY #90 tabs 05/14/24 01/02/25 Rx release donepezil 5 mg tablet 5 mg PO QHS memory #90 tabs 01/02/25 Rx escitalopram oxalate 5 mg tablet 5 mg PO DAILY anxiety #90 tabs 01/02/25 Rx Handicap Placard #1 ea 07/27/24 01/02/25 Rx acetaminophen 500 mg tablet 1,000 mg PO 0900,1500,2000 PRN 01/2701/02/25 History pain 1-10 levothyroxine 75 mcg tablet 75 mcg PO DAILY thyroid #60 tabs 0 11/08/24 01/02/25 Rx aspirin 81 mg tablet,delayed 81 mg PO QDAY 01/02/25 01/02/25 Hi story release (Adult Aspirin Regimen) Have you fallen in the past year?: Yes (x1) [facility] Medical History Dementia Right clavicle fracture Chronic anticoagulation Fall Fracture of right superior pubic ramus Fracture of right inferior pubic ramus Pacemaker lead malfunction Flu vaccine need Distal radius fracture Open wound of left ring finger Anxiety and depression GI bleed Parathyroid disorder Hearing problem Goiter Carpal tunnel syndrome Allergies Iron deficiency anemia Hyperlipidemia Hypertension Hypothyroidism Atrial fibrillation Right hemiparesis CVA (cerebral vascular accident) Rheumatoid arthritis Stroke/cerebrovascu lar accident Wears glasses 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 Arthritis History of GI bleed History of IBS Non-smoker History of stress test Cardiology follow-up encounter BRBPR (bright red blood per rectum) Microscopic colitis Osteoarthritis Vertigo Persistent atrial fibrillation Concussion Closed head injury Hypothyroidism Fall Periorbital edema of left eye Fracture of metacarpal base, first, right hand, closed Personal history of colonic polyps Complete heart block Sick sinus syndrome Nonrheumatic mitral valve insufficiency Anemia Asthma Essential (primary) hypertension Thyroid storm Hyperlipidemia Ulcer of right lower extremity with fat layer exposed Venous insufficiency Malnutrition Delayed wound healing Edema leg Ulcer of left lower extremity with fat layer exposed Mild intermittent asthma Microscopic colitis Acquired hypothyroidism Surgical History Status post placement of cardiac pacemaker H/O thyroidectomy History of knee replacement History of right hip replacement History of permanent cardiac pacemaker placement H/O thyroidectomy Family History Father CAD (coronary artery disease) Brother Cancer Leukemia Brother Epilepsy Mother Colon cancer Other CVA (cerebral vascular accident) Diabetes Social History household members: none and other details: 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 Here with her caregiver. No acute concerns at this time. History of demen (more content not included)... Normal Laboratory - Chemistry and C hemistry - challengeOrdered By: Elizabeth Cai on 01-02-2025 AST [Catalytic activity/Vol] 21 U/L <32 MCV (mean corpuscular volume ) determinationOrdered By: Elizaebth Cai on 01-02-2025 MCV (RBC) [Entitic vol] 92.5 fL 81-99 [facility] Mean corpuscular hemoglobin (MCH) determinationOrdered By: Elizabeth Cai on 01-02-2025 MCH (RBC) [Entitic mass] 30.1 pg 27.0-32.0 Mean corpuscular hemoglobin concentration (MCHC) determinationOrdered By: Elizabeth Cai on 01-02-2025 MCHC (RBC) [Mass/Vol] 32.5 g/dL 32-36 [facility] Mean platelet volume determi nationOrdered By: Elizabeth Keitacalderonsebastian on 01-02-2025 Platelet mean volume (Bld) [Entitic vol] 11.4 fL 6.2-12.0 Monocyte percentageOrdered B y: Elizabeth Keitacalderonsebastian on 01-02-2025 Monocytes/100 WBC (Bld) 9.2 % 0-10 [facility] Neutrophil percentageOrdered By: Elizabeth Keitacalderonsebastian on 01-02-2025 Neutrophils/100 WBC (Bld) 70.1 % High 47-70 Nucleated red blood cell per centageOrdered By: Elizabeth Keitacalderonsebastian on 01-02-2025 Nucleated RBC/100 WBC (Bld) [Ratio] 0 % 0-5 Platelet countOrdered By: Dolores tarngyannick Keitacalderonsebastian on 01-02-2025 Platelets (Bld) [#/Vol] 184 10*3/uL 150-450 Potassium measurement (mass/ volume)Ordered By: Elizabeth Cai on 01-02-2025 Potassium (Unsp spec) [Mass/Vol] 4.6 mmol/L 3.3-5.1 RBC Auto (Bld) [#/Vol]Ordere d By: Elizabeth Cai on 01-02-2025 RBC (Bld) [#/Vol] 4.42 10*6/uL 4.2-5.4 [facility] Serum creatinine measurement (mass/volume)Ordered By: Elizabeth Cai on 01-02-2025 Creatinine [Mass/Vol] 0.84 mg/dL 0.70-1.20 [facility] Serum globulin measurementOr dered By: Elizabeth Cai on 01-02-2025 Globulin (S) [Mass/Vol] 3.2 g/dL 2.2-4.2 [facility] Serum glucose measurement (m ass/volume)Ordered By: Elizabeth Cai on 01-02-2025 Glucose [Mass/Vol] 95 mg/dL 70-99 [facility] Serum or plasma alanine blank otransferase (ALT) measurementOrdered By: Elizabeth Cai on 01-02-2025 ALT [Catalytic activity/Vol] 9 U/L <35 Serum or plasma albumin jovanni urement (mass/volume)Ordered By: Elizabeth Cai on 01-02-2025 Albumin [Mass/Vol] 3.8 g/dL 3.4-4.8 [facility] Serum or plasma albumin/glob ulin mass ratioOrdered By: Elizabeth Cai on 01-02-2025 Albumin/Globulin [Mass ratio] 1.2 {ratio} 0.9-2.4 Serum or plasma alkaline payal sphatase measurementOrdered By: Elizabeth Cai 01-02-2025 ALP [Catalytic activity/Vol] 63 U/L 35-104 Serum or plasma calcium jovanni urement (mass/volume)Ordered By: Elizabeth Cai on 01-02-2025 Calcium [Mass/Vol] 9.2 mg/dL 7.6-11.0 [facility] Serum or plasma urea nitroge n measurement (mass/volume)Ordered By: Elizabeth Cai 01-02-2025 Urea nitrogen [Mass/Vol] 24 mg/dL High 4-19 Sodium levelOrdered By: Anna Cai on 01-02-2025 Sodium [Moles/Vol] 140 mmol/L 133-145 [facility] TSH DL <= 0.005 mIU/L QnOrde red By: Elizabeth Cai on 01-02-2025 TSH Qn 0.299 uIU/mL Low 0.300-4.200 Thyroid Stim Hormone (TSH)on 01-02-2025 TSH 0.299 uIU/mL Low 0.300-4.200 Comment on above: Performed By: #### L 100.0100, L501.9520, L500.4050 #### [id number] [place], [address] Total proteinOrdered By: Forest Cai on 01-02-2025 Protein [Mass/Vol] 7.0 g/dL 5.9-8.4 [facility] White blood cell (WBC) count Ordered By: Elizabeth Cai on 01-02-2025 WBC (Bld) [#/Vol] 7.4 10*3/uL 4.4-11.0 [facility] Pacemaker Checkon 12-13-2024 Pacemaker Check [facility] [address] [place] [address] Pacemaker Check Date of Service: 12/13/24 1525 MR#: [id number] Acct: [id number] Name: MARISA SANTIAGO Rep #: [id number] : 1935 From: Bing Cooper Age/Sex: 89/F Location: [facility] Status: Signed Billing Codes PM Device Codes: 16216 PM Dev Prog Eval, Single Assessment and Plan Assessment and Plan (1) Sick sinus syndrome: Status: Chronic (2) History of permanent cardiac pacemaker placement: Status: Chronic Comment: Slow ventricular response to a-fib 06/2009; 12/13/24 1527 Date Bing Jones Signature: Date (if applicable) CC: Normal Ankle Brachial Indexon 11-29 Ankle Brachial Index [facility] [address] [place] [address] Ankle Brachial Index 11/29/24 1253 MR#: [id number] Acct: [id number] Name: MARISA SANTIAGO Rep #: [id number] : 1935 89 From: Aidan Rollins MD Attending Dr: MARY Niño Status: REG CLI Ordering Dr: Jomar Michelle Date: 11/29/24 [facility] Sex[facility] F C Admitted: Reason For Study Reason For Study: Wounds lower extremities Procedure A bilateral lower extremity continuous wave Doppler with analog waveform analysis and ankle brachial indexes. Left Segmental Pressures Left brachial= 144mmHg. Left posterior tibial artery = >254mmHg. Left dorsalis pedis artery = >254mmHg. Left digit = 122 mmHg. The left dorsalis pedis waveforms are triphasic. The left posterior tibial artery waveforms are triphasic. Right Segmental Pressures Right brachial= 139mmHg. Right posterior tibial artery = >254mmHg. Right dorsalis pedis artery = 183mmHg. Right digit = 87 mmHg. The right dorsalis pedis waveforms are triphasic. The right posterior tibial artery waveforms are triphasic. Indices The right ankle brachial index by the dorsalis pedis is 1.27. The right ankle brachial index by the posterior tibial artery is NC. The right digital-brachial index is 0.60. The left ankle brachial index by the dorsalis pedis is NC. The left ankle brachial index by the posterior tibial artery is NC. The left digital-brachial index is 0.85. VL/Ankle Brachial Index Interpretation Summary Right KURT 1.27 normal. Doppler/PVR waveforms of the right ankle normal at rest. TBI diminished, pedal/digit disease vs spasm Left KURT not able to be obtained due to non-compressible vessels. TBI and Doppler/PVR waveforms of the left ankle normal at rest. __ Ordering Physician: Jomar Michelle Referring Physician: Elizabeth Cai Performed By: AURE GOODE T 03/27/25 1820 Date Aidan Rollins MD CC: Dr. Elizabeth Cai MD; MARY Niño Date Dictated: 11/29/24 1253 Date Transcribed: 11/29/241819 Tool Design Checker: Signed Normal Arterial study reportOrdered By: Aidan Rollins on 11-29-2024 Noninvasive arteriosclerosis study report [facility] [address] [place] [address] Ankle Brachial Index 11/29/24 1253 MR#: [id number] Acct: [id number] Name: MARISA SANTIAGO Rep #:[id number] : 1935 89 From: Aidan Gimenez Attending Dr: MARY Niño Stat us: REG CLI Ordering Dr: Jomar Michelle Date: 11/29/24 [facility] Sex: F C Admitted: Reason For Study Reason For Study: Wounds lower extremities Procedure A bilateral lower extremity continuous wave Doppler with analog waveform analysis and ankle brachial indexes. Left Segmental Pressures Left brachial= 144mmHg. Left posterior tibial artery = >254mmHg. Left dorsalis pedis artery = >254mmHg. Left digit = 122 mmHg. The left dorsalis pedis waveforms are triphasic. The left posterior tibialartery waveforms are triphasic. Right Segmental Pressures Right brachial= 139mmHg. Right posterior tibial artery = >254mmHg. Right dorsalis pedis artery = 183mmHg. Right digit = 87 mmHg. The right dorsalis pedis waveforms are triphasic. The right posterior tibial artery waveforms are triphasic. Indices The right ankle brachial index by the dorsalis pedis is 1.27. The right ankle brachial index by the posterior tibial artery is NC. The right digital-brachial index is 0.60. The left ankle brachial index by the dorsalis pedis is NC. The left ankle brachial index by the posterior tibial artery is NC. The left digital-brachial index is 0.85. VL/Ankle Brachial Index Interpretation Summary Right KUTR 1.27 normal. Doppler/PVR waveforms of the right ankle normal at rest. TBI diminished, pedal/digit disease vs spasm Left KURT not able to be obtained due to non-compressible vessels. TBI and Doppler/PVR waveforms of the left ankle normal at rest. __ Ordering Physician: Jomar Michelle Referring Physician: Elizabteh Cai Performed By: AURE GOODE T 11/29/24 1820 Date _ Aidan Rollins MD CC: Dr. Elizabeth Cai MD; MARY Niño ~ Date Dictated: 11/29/24 1253 Date Transcribed: 11/29/241819 Tool Design Checker: Signed Work Phone: Cardiology Visit Reporton Cardiology Visit Report [facility] [address] [place] [address]. [address] [place] [address] OFFICE VISIT Date of Service: 11/29/24 MR#: [id number] Acct: [id number] Name: MARISA SANTIAGO Rep #: [id number] : 1935 Provider: MARY Stuart Age/Sex: 89/F Location: [facility] Status: Signed HPI HPI History of Present Illness Details: This is an 89-year-old white female who presents today for outpatient cardiovascular follow-up visit. She has a history of sick sinus syndrome and complete heart block status post permanent pacemaker implanted in June 2009, PAF, MR, hyperlipidemia, and hypertension. She is accompanied by her caregiver. Patient had presented to the emergency room in December of 2023, after falling. Her brain CT demonstrated small hemorrhagic cortical contusion, and a right parietal scalp hematoma. Her Eliquis was discontinued at that time. She presents to the office in a wheel chair. She denies any palpitations, chest pain, pressure or heaviness. She denies SOB, Orthopnea, and PND. She does not have bleeding issues; no blood in urine, stool or nosebleeds. She denies any decrease in energy level, myalgias, or claudication. She does not have edema, or sudden weight gain. She denies dizziness, lightheadedness, syncopal or near syncopal episodes, and headaches. She is working with her PCP in regards to her swelling in her lower extremities. 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: No Accompanied by: Caregiver Is patient in pain?: No Allergies Environmental Allergies: Uncoded Allergy (Mild, Verified 11/29/24 11:50) sneezing latex Adverse Reaction (Verified 11/29/24 11:50) Itching sulfamethoxazole (From Bactrim) Adverse Reaction (Verified 11/29/24 11:50) Nausea trimethoprim (From Bactrim) Adverse Reaction (Verified 11/29/24 11:50) Nausea Medications ???Medication ???Instructions ???Recorded ???Confirmed ???Type [id number] 0.4 mg-calcium 162 1 ea PO DAILY supplement 9 11/29/24 History mg-iron 18 en-qfwjhvs-yuvzqb tablet ascorbic acid (vitamin C) 1,000 mg 1 g PO DAILY supplement #1 TAB 0 12/15/23 11/29/24 Rx tablet (Vitamin C) lisinopril 2.5 mg tablet 2.5 mg PO QHS #90 tabs 05/14/24 Rx pantoprazole 40 mg tablet,delayed 40 mg PO DAILY #90 tabs 05/14/24 11/29/24 Rx release donepezil 5 mg tablet 5 mg PO QHS memory #90 tabs 11/29/24 Rx escitalopram oxalate 5 mg tablet 5 mg PO DAILY anxiety #90 tabs 11/29/24 Rx Handicap Placard #1 ea 07/27/24 11/07/24 Rx acetaminophen 500 mg tablet 1,000 mg PO 0900,1500,2000 PRN 01/2711/29/24 History pain 1-10 levothyroxine 75 mcg tablet 75 mcg PO DAILY thyroid #60 tabs 0 11/08/24 11/29/24 Rx Ejection fraction %: 50 (50-55) Have you fallen in the past year?: Yes (X 1 trip and fall) Nurse's Note: Caregiver has multiple questions regarding HASMUKH hose. Has appointment with vascular at [address] [place] [address] Medical History Dementia Right clavicle fracture Chronic anticoagulation Fall Fracture of right superior pubic ramus Fracture of right inferior pubic ramus Pacemaker lead malfunction Flu vaccine need Distal radius fracture Open wound of left ring finger Anxiety and depression GI bleed Parathyroid disorder Hearing problem Goiter Carpal tunnel syndrome Allergies Iron deficiency anemia Hyperlipidemia Hypertension Hypothyroidism Atrial fibrillation Right hemiparesis CVA (cerebral vascular accident) Rheumatoid arthritis Stroke/cerebrovascu lar accident Wears glasses 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 Arthritis History of GI bleed History of IBS Non-smoker History of stress test Cardiology follow-up encounter BRBPR (bright red blood per rectum) Microscopic colitis Osteoarthritis Vertigo Persistent atrial fibrillation Concussion Closed head injury Hypothyroidism Fall Periorbital edema of left eye Fracture of metacarpal base, first, right hand, closed Personal history of colonic polyps Complete heart block Sick sinus syndrome Nonrheumatic mitral valve insufficiency Anemia Asthma Essential (primary) hypertension Thyroid storm Hyperlipidemia Ulcer of right lower extremity with fat layer exposed Venous insufficiency Malnutrition Delayed wound healing Edema leg Ulcer of left lower extremity with fat layer exposed Mild intermittent asthma Microscopic colitis Acquired hypothyroidism Surgical History Status post plac (more content not included)... Normal Internal Medicine Office Vis nallely 11-07-2024 Internal Medicine Office Visit [facility] [address] [place], [place] [address] OFFICE VISIT Date of Service: 11/07/24 MR#: [id number] Acct: [id number] Name: MARISA SANTIAGO Rep #: [id number] : 1935 Provider: MARY Niño Age/Sex: 89/F Location: [facility] Status: Signed Intake Vital Signs 10/26/24 12:26 11/07/24 10:41 Height 5 ft 8 in 5 ft 8 in Weight: 154 lb 154 lb BMI 23.4 23.4 BP 112/58 L 130/70 H Blood Pressure Location Lt brachial Rt brachial Position Sitting Sitting Respiration 14 18 Pulse 70 88 Pulse Source Monitor Monitor Temp 96 F L 98.2 F Temp Source Temporal Temporal Pulse Oximetry (%) 97 97 Oxygen Delivery Method room air room air Intake Visit Reasons: 2 W FU Chief Complaint: 2 W FU 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: No Accompanied by: [employer] Principal Is patient in pain?: No Allergies Environmental Allergies: Uncoded Allergy (Mild, Verified 11/07/24 10:42) sneezing latex Adverse Reaction (Verified 11/07/24 10:42) Itching sulfamethoxazole (From Bactrim) Adverse Reaction (Verified 11/07/24 10:42) Nausea trimethoprim (From Bactrim) Adverse Reaction (Verified 11/07/24 10:42) Nausea Medications ???Medication ???Instructions ???Recorded ???Confirmed ???Type iaarykwt-kwn-RA 0.4 mg-calcium 162 1 ea PO DAILY supplement 9 11/07/24 History mg-iron 18 if-judofpl-oxgkcu tablet ascorbic acid (vitamin C) 1,000 mg 1 g PO DAILY supplement #1 TAB 0 12/15/23 11/07/24 Rx tablet (Vitamin C) lisinopril 2.5 mg tablet 2.5 mg PO QHS #90 tabs 05/14/24 Rx pantoprazole 40 mg tablet,delayed 40 mg PO DAILY #90 tabs 05/14/24 11/07/24 Rx release donepezil 5 mg tablet 5 mg PO QHS memory #90 tabs 11/07/24 Rx escitalopram oxalate 5 mg tablet 5 mg PO DAILY anxiety #90 tabs 11/07/24 Rx Handicap Placard #1 ea 07/27/24 11/07/24 Rx levothyroxine 88 mcg tablet 88 mcg PO DAILY thyroid #60 tabs 0 09/24/24 11/07/24 Rx acetaminophen 500 mg tablet 1,000 mg PO 0900,1500,2000 PRN 01/27 History pain 1-10 Have you fallen in the past year?: Yes (x1) Nurse's Note: pt's caregiver Krupa reports that they did not warp picker the aquacel as ordered due to the cost, however she has been using "silver ointment on the wounds" covered by foam dressing [facility] Medical History Dementia Right clavicle fracture Chronic anticoagulation Fall Fracture of right superior pubic ramus Fracture of right inferior pubic ramus Pacemaker lead malfunction Flu vaccine need Distal radius fracture Open wound of left ring finger Anxiety and depression GI bleed Parathyroid disorder Hearing problem Goiter Carpal tunnel syndrome Allergies Iron deficiency anemia Hyperlipidemia Hypertension Hypothyroidism Atrial fibrillation Right hemiparesis CVA (cerebral vascular accident) Rheumatoid arthritis Stroke/cerebrovascu lar accident Wears glasses 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 Arthritis History of GI bleed History of IBS Non-smoker History of stress test Cardiology follow-up encounter BRBPR (bright red blood per rectum) Microscopic colitis Osteoarthritis Vertigo Persistent atrial fibrillation Concussion Closed head injury Hypothyroidism Fall Periorbital edema of left eye Fracture of metacarpal base, first, right hand, closed Personal history of colonic polyps Complete heart block Sick sinus syndrome Nonrheumatic mitral valve insufficiency Anemia Asthma Essential (primary) hypertension Thyroid storm Hyperlipidemia Ulcer of right lower extremity with fat layer exposed Venous insufficiency Malnutrition Delayed wound healing Edema leg Ulcer of left lower extremity with fat layer exposed Mild intermittent asthma Microscopic colitis Acquired hypothyroidism Surgical History Status post placement of cardiac pacemaker H/O thyroidectomy History of knee replacement History of right hip replacement History of permanent cardiac pacemaker placement H/O thyroidectomy Family History Father CAD (coronary artery disease) Brother Cancer Leukemia Brother Epilepsy Mother Colon cancer Other CVA (cerebral vascular accident) Diabetes Social History household members: none and other details: 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 Normal TSH DL <= 0.005 mIU/L QnOrde red By: Elizabeth Cai on 11-07-2024 Thyroid Stimulating Hormone (TSH) 0.105 uIU/mL Low 0.300-4.200 TSH Qn 0.105 uIU/mL Low 0.300-4.200 Thyroid Stim Hormone (TSH)on 11-07-2024 TSH 0.105 uIU/mL Low 0.300-4.200 Comment on above: Performed By: #### L 501.9520 #### Laboratory [address] [place], [address] Internal Medicine Office Vis iton 10-26-2024 Internal Medicine Office Visit [facility] [place] [address] [place] [address] OFFICE VISIT Date of Service: 10/26/24 MR#: [id number] Acct: [id number] Name: MARISA SANTIAGO Rep #: [id number] : 1935 Provider: MARY Niño Age/Sex: 89/F Location: [facility] Status: Signed Intake Vital Signs 10/17/24 14:55 10/26/24 12:26 Height 5 ft 8 in 5 ft 8 in Weight: 154 lb 154 lb BMI 23.4 23.4 BP 118/68 112/58 L Blood Pressure Location Rt brachial Lt brachial Position Sitting Sitting Respiration 16 14 Pulse 69 70 Pulse Source Monitor Monitor Temp 96.6 F L 96 F L Temp Source Temporal Temporal Pulse Oximetry (%) 98 97 Oxygen Delivery Method room air room air Intake Visit Reasons: 1 W FU Chief Complaint: FU sores on master shins and some inflammation 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: No Accompanied by: Self Is patient in pain?: No Allergies Environmental Allergies: Uncoded Allergy (Mild, Verified 10/26/24 12:22) sneezing latex Adverse Reaction (Verified 10/26/24 12:22) Itching sulfamethoxazole (From Bactrim) Adverse Reaction (Verified 10/26/24 12:22) Nausea trimethoprim (From Bactrim) Adverse Reaction (Verified 10/26/24 12:22) Nausea Medications ???Medication ???Instructions ???Recorded ???Confirmed ???Type pzchqmuj-vhu-OW 0.4 mg-calcium 162 1 ea PO DAILY supplement 9 10/26/24 History mg-iron 18 qf-wkkdluu-hckluj tablet acetaminophen 500 mg tablet 1,000 mg (2 x 500 mg) PO 12/15/23 10/26/24 Rx 0900,1500,2000 pain 1-10 #1 TAB ascorbic acid (vitamin C) 1,000 mg 1 g PO DAILY supplement #1 TAB 0 12/15/23 10/26/24 Rx tablet (Vitamin C) lisinopril 2.5 mg tablet 2.5 mg PO QHS #90 tabs 05/14/24 Rx pantoprazole 40 mg tablet,delayed 40 mg PO DAILY #90 tabs 05/14/24 10/26/24 Rx release donepezil 5 mg tablet 5 mg PO QHS memory #90 tabs 10/26/24 Rx escitalopram oxalate 5 mg tablet 5 mg PO DAILY anxiety #90 tabs 10/26/24 Rx Handicap Placard #1 ea 07/27/24 10/26/24 Rx levothyroxine 88 mcg tablet 88 mcg PO DAILY thyroid #60 tabs 0 09/24/24 10/26/24 Rx cephalexin 500 mg capsule 500 mg PO TID #30 caps 10/17/24 Rx mupirocin 2 % topical ointment 1 applic topical BID #15 grams 08/2910/26/24 Rx silver 1.2 %-foam bandage 3.2" X See Rx Instructions topical 10/26/24 Rx 3.2" (Aquacel AG Foam) .COMPLEX #10 ea silver 1.2 %-foam bandage 5" X 5" See Rx Instructions topical 10/2610/26/24 Rx (Aquacel AG Foam) .COMPLEX #10 ea Have you fallen in the past year?: No PFSH Medical History Dementia Right clavicle fracture Chronic anticoagulation Fall Fracture of right superior pubic ramus Fracture of right inferior pubic ramus Pacemaker lead malfunction Flu vaccine need Distal radius fracture Open wound of left ring finger Anxiety and depression GI bleed Parathyroid disorder Hearing problem Goiter Carpal tunnel syndrome Allergies Iron deficiency anemia Hyperlipidemia Hypertension Hypothyroidism Atrial fibrillation Right hemiparesis CVA (cerebral vascular accident) Rheumatoid arthritis Stroke/cerebrovascu lar accident Wears glasses 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 Arthritis History of GI bleed History of IBS Non-smoker History of stress test Cardiology follow-up encounter BRBPR (bright red blood per rectum) Microscopic colitis Osteoarthritis Vertigo Persistent atrial fibrillation Concussion Closed head injury Hypothyroidism Fall Periorbital edema of left eye Fracture of metacarpal base, first, right hand, closed Personal history of colonic polyps Complete heart block Sick sinus syndrome Nonrheumatic mitral valve insufficiency Anemia Asthma Essential (primary) hypertension Thyroid storm Hyperlipidemia Ulcer of right lower extremity with fat layer exposed Venous insufficiency Malnutrition Delayed wound healing Edema leg Ulcer of left lower extremity with fat layer exposed Mild intermittent asthma Microscopic colitis Acquired hypothyroidism Surgical History Status post placement of cardiac pacemaker H/O thyroidectomy History of knee replacement History of right hip replacement History of permanent cardiac pacemaker placement H/O thyroidectomy Family History Father CAD (coronary artery disease) Brother Cancer Leukemia Brother Epilepsy Mother Colon cancer Other CVA (cerebral vascular accident) Diabetes Social History household members: none and other details: 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 Normal Internal Medicine Office Vis nallely 10-17-2024 Internal Medicine Office Visit [facility] [address] [place] [address] [address] [place], [place] [address] OFFICE VISIT Date of Service: 10/17/24 MR#: [id number] Acct: [id number] Name: MARISA SANTIAGO Rep #: [id number] : 1935 Provider: MARY Niño Age/Sex: 89/F Location: [facility] Status: Signed Intake Vital Signs 07/27/24 11:25 10/17/24 14:55 Height 5 ft 8 in 5 ft 8 in Weight: 154 lb 154 lb BMI 23.4 23.4 BP 130/80 H 118/68 Blood Pressure Location Lt brachial Rt brachial Position Sitting Sitting Respiration 16 16 Pulse 69 69 Pulse Source Monitor Monitor Temp 97.3 F L 96.6 F L Temp Source Temporal Temporal Pulse Oximetry (%) 98 98 Oxygen Delivery Method room air room air Intake Visit Reasons: acute - possible lft leg infection Chief Complaint: left lower leg hernandez area wound and would like rt leg checked also 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: No Accompanied by: Other Is patient in pain?: Yes Pain scale (1-10): 5 Allergies Environmental Allergies: Uncoded Allergy (Mild, Verified 10/17/24 14:54) sneezing latex Adverse Reaction (Verified 10/17/24 14:54) Itching sulfamethoxazole (From Bactrim) Adverse Reaction (Verified 10/17/24 14:54) Nausea trimethoprim (From Bactrim) Adverse Reaction (Verified 10/17/24 14:54) Nausea Medications ???Medication ???Instructions ???Recorded ???Confirmed ???Type [id number] 0.4 mg-calcium 162 1 ea PO DAILY supplement 9 10/17/24 History mg-iron 18 nn-zsfdssr-fdvroo tablet acetaminophen 500 mg tablet 1,000 mg (2 x 500 mg) PO 12/15/23 10/17/24 Rx 0900,1500,2000 pain 1-10 #1 TAB ascorbic acid (vitamin C) 1,000 mg 1 g PO DAILY supplement #1 TAB 0 12/15/23 10/17/24 Rx tablet (Vitamin C) lisinopril 2.5 mg tablet 2.5 mg PO QHS #90 tabs 05/14/24 Rx pantoprazole 40 mg tablet,delayed 40 mg PO DAILY #90 tabs 05/14/24 10/17/24 Rx release donepezil 5 mg tablet 5 mg PO QHS memory #90 tabs 10/17/24 Rx escitalopram oxalate 5 mg tablet 5 mg PO DAILY anxiety #90 tabs 10/17/24 Rx Handicap Placard #1 ea 07/27/24 10/17/24 Rx levothyroxine 88 mcg tablet 88 mcg PO DAILY thyroid #60 tabs 0 09/24/24 10/17/24 Rx cephalexin 500 mg capsule 500 mg PO TID #30 caps 10/17/24 Rx mupirocin 2 % topical ointment 1 applic topical BID #15 grams 08/2910/17/24 Rx Have you fallen in the past year?: No PFSH Medical History Dementia Right clavicle fracture Chronic anticoagulation Fall Fracture of right superior pubic ramus Fracture of right inferior pubic ramus Pacemaker lead malfunction Flu vaccine need Distal radius fracture Open wound of left ring finger Anxiety and depression GI bleed Parathyroid disorder Hearing problem Goiter Carpal tunnel syndrome Allergies Iron deficiency anemia Hyperlipidemia Hypertension Hypothyroidism Atrial fibrillation Right hemiparesis CVA (cerebral vascular accident) Rheumatoid arthritis Stroke/cerebrovascu lar accident Wears glasses 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 Arthritis History of GI bleed History of IBS Non-smoker History of stress test Cardiology follow-up encounter BRBPR (bright red blood per rectum) Microscopic colitis Osteoarthritis Vertigo Persistent atrial fibrillation Concussion Closed head injury Hypothyroidism Fall Periorbital edema of left eye Fracture of metacarpal base, first, right hand, closed Personal history of colonic polyps Complete heart block Sick sinus syndrome Nonrheumatic mitral valve insufficiency Anemia Asthma Essential (primary) hypertension Thyroid storm Hyperlipidemia Ulcer of right lower extremity with fat layer exposed Venous insufficiency Malnutrition Delayed wound healing Edema leg Ulcer of left lower extremity with fat layer exposed Mild intermittent asthma Microscopic colitis Acquired hypothyroidism Surgical History Status post placement of cardiac pacemaker H/O thyroidectomy History of knee replacement History of right hip replacement History of permanent cardiac pacemaker placement H/O thyroidectomy Family History Father CAD (coronary artery disease) Brother Cancer Leukemia Brother Epilepsy Mother Colon cancer Other CVA (cerebral vascular accident) Diabetes Social History household members: none and other details: 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 Normal Serum or plasma thyroid stim ulating hormone (TSH) measurement (units/volume)Ordered By: Elizabeth Cai on 09-24-2024 TSH Qn 0.042 uIU/mL Low 0.358-3.740 TSH QnOrdered By: Elizabeth Cai on 09-24-2024 Thyroid Stimulating Hormone (TSH) 0.042 uIU/mL Low 0.358-3.740 Thyroid Stim Hormone (TSH)on 09-24-2024 TSH 0.042 uIU/mL Low 0.358-3.740 Comment on above: Performed By: #### L [id number] #### [id number] [place], [address] TSH QnOrdered By: Elizabeth Cai on 08-01-2024 Thyroid Stimulating Hormone (TSH) 0.054 uIU/mL Low 0.358-3.740 Thyroid Stim Hormone (TSH)on 08-01-2024 TSH 0.054 uIU/mL Low 0.358-3.740 Comment on above: Performed By: #### L [id number] #### [id number] [place], [address] Internal Medicine Office Vis iton 07-27-2024 Internal Medicine Office Visit [facility] [place], [place] [address] OFFICE VISIT Date of Service: 07/27/24 MR#: [id number] Acct: [id number] Name: MARISA SANTIAGO Rep #: [id number] : 1935 Provider: Dr. 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 Accompanied by: Daughter Is patient in pain?: No Allergies Environmental Allergies: Uncoded Allergy (Mild, Verified 07/27/24 11:19) sneezing latex Adverse Reaction (Verified 07/27/24 11:19) Itching sulfamethoxazole (From Bactrim) Adverse Reaction (Verified 07/27/24 11:19) Nausea trimethoprim (From Bactrim) Adverse Reaction (Verified 07/27/24 11:19) Nausea Medications ???Medication ???Instructions ???Recorded ???Confirmed ???Type [id number] 0.4 mg-calcium 162 1 ea PO DAILY supplement 06/03/19 07/27/24 History mg-iron 18 ri-bwgeusd-tktmrn tablet acetaminophen 500 mg tablet 1,000 mg (2 x 500 mg) PO 12/15/23 07/27/24 Rx 0900,1500,2000 pain 1-10 #1 TAB ascorbic acid (vitamin C) 1,000 mg 1 g PO DAILY supplement #1 TAB 12/15/23 07/27/24 Rx tablet (Vitamin C) lisinopril 2.5 mg tablet 2.5 mg PO QHS #90 tabs 05/14/24 07/27/24 Rx pantoprazole 40 mg tablet,delayed 40 mg PO DAILY #90 tabs 05/14/24 07/27/24 Rx release levothyroxine 100 mcg tablet 100 mcg PO DAILY thyroid #60 tabs 06/04/24 07/27/24 Rx donepezil 5 mg tablet 5 mg PO QHS memory #90 tabs 06/18/24 07/27/24 Rx escitalopram oxalate 5 mg tablet 5 mg PO DAILY anxiety #90 tabs 07/23/24 07/27/24 Rx Handicap Placard #1 ea 11/22/24 11/22/24 Rx Have you fallen in the past year?: Yes (07/26/2024, walking to bathroom tripped. ) PFSH Medical History Dementia Right clavicle fracture Chronic anticoagulation Fall Fracture of right superior pubic ramus Fracture of right inferior pubic ramus Pacemaker lead malfunction Flu vaccine need Distal radius fracture Open wound of left ring finger Anxiety and depression GI bleed Parathyroid disorder Hearing problem Goiter Carpal tunnel syndrome Allergies Iron deficiency anemia Hyperlipidemia Hypertension Hypothyroidism Atrial fibrillation Right hemiparesis CVA (cerebral vascular accident) Rheumatoid arthritis Stroke/cerebrovascu lar accident Wears glasses 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 Arthritis History of GI bleed History of IBS Non-smoker History of stress test Cardiology follow-up encounter BRBPR (bright red blood per rectum) Microscopic colitis Osteoarthritis Vertigo Persistent atrial fibrillation Concussion Closed head injury Hypothyroidism Fall Periorbital edema of left eye Fracture of metacarpal base, first, right hand, closed Personal history of colonic polyps Complete heart block Sick sinus syndrome Nonrheumatic mitral valve insufficiency Anemia Asthma Essential (primary) hypertension Thyroid storm Hyperlipidemia Ulcer of right lower extremity with fat layer exposed Venous insufficiency Malnutrition Delayed wound healing Edema leg Ulcer of left lower extremity with fat layer exposed Mild intermittent asthma Microscopic colitis Acquired hypothyroidism Surgical History Status post placement of cardiac pacemaker H/O thyroidectomy History of knee replacement History of right hip replacement History of permanent cardiac pacemaker placement H/O thyroidectomy Family History Father CAD (coronary artery disease) Brother Cancer Leukemia Brother Epilepsy Mother Colon cancer Other CVA (cerebral vascular accident) Diabetes Social History household members: none and other details: 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 Here with her caregivers. No acute concer (more content not included)... Normal Absolute lymphocyte countOrd ered By: Rod Ochoa on 01-06-2024 Lymphocytes Auto (Unsp spec) [#/Vol] 1.21 10*3/uL 0.83-4.51 Automated lymphocyte count a s percentage of total leukocytesOrdered By: Rod Ochoa on 01-06-2024 Lymphocytes/100 WBC Auto (Unsp spec) 18.4 % 19-41 Basophil percentageOrdered B y: Rod Ochoa on 01-06-2024 Basophil percentage 10.3 g/dL 12.0-15.0 [facility] Basophil percentage 93 mg/dL 74-106 [facility] Basophil percentage 138 mmol/L 136-145 [facility] Basophil percentage 4.9 mmol/L 3.5-5.1 [facility] Basophil percentage 108 mmol/L 98-107 [facility] Basophils (Bld) [#/Vol] 6.6 10*3/uL 4.4-11.0 Basophils (Bld) [#/Vol] 4.1 10*3/uL 2.0-7.7 Basophils/100 WBC (Bld) 62.3 % 47-70 [facility] Basophils/100 WBC (Bld) 11.1 % 0-10 [facility] Basophils/100 WBC (Bld) 6.1 % 0-5 [facility] Basophils/100 WBC (Bld) 1.2 % 0-1 [facility] Determination of erythrocyte mean corpuscular volume (MCV)Ordered By: Rod Ochoa on 01-06-2024 MCV (RBC) [Entitic vol] 95.1 fL 81-99 [facility] Erythrocyte distribution wid th ratioOrdered By: Rod Ochoa on 01-06-2024 Erythrocyte distribution width (RBC) [Ratio] 14.0 % 11.6-14.6 Erythrocyte distribution wid th standard deviationOrdered By: Rod Ochoa on 01-06-2024 Erythrocyte distribution width (RBC) [Entitic vol] 48.4 fL 35.1-43.9 [facility] Hematocrit Auto (Bld) [Volum e fraction]Ordered By: Rod Ochoa on 01-06-2024 Hematocrit (Bld) [Volume fraction] 32.8 % 37-47 Immature granulocytes/100 WB C Auto (Bld)Ordered By: Rod Ochoa on 01-06-2024 Immature granulocytes/100 WBC (Bld) 0.900 % 0.0-0.9 No Panel InformationOrdered By: Rod Ochoa on 01-06-2024 29.9 pg 27.0-32.0 31.4 g/dL 32-36 170 K/mm3 150-450 10.8 fl 6.2-12.0 0 % 0-5 57 mL/min >60 69 mL/min >60 40.80 ml/min 34.7 RATIO 10-20 28.0 mmol/L 21.0-32.0 RBC Auto (Bld) [#/Vol]Ordere d By: Rod Ochoa on 01-06-2024 RBC (Bld) [#/Vol] 3.45 10*6/uL 4.2-5.4 [facility] Serum or plasma calcium jovanni urement (mass/volume)Ordered By: Rod Ochoa on 01-06-2024 Calcium [Mass/Vol] 8.9 mg/dL 8.5-10.1 [facility] Serum or plasma creatinine m easurement (mass/volume)Ordered By: Rod Ochoa on 01-06-2024 Creatinine [Mass/Vol] 0.98 mg/dL 0.55-1.02 [facility] Serum or plasma urea nitroge n measurement (mass/volume)Ordered By: Rod Ochoa on 01-06-2024 Urea nitrogen [Mass/Vol] 34 mg/dL 7-18 Thin prep Papanicolaou smear with manual screeningOrdered By: Rod Ochoa on 01-06-2024 Thin prep Papanicolaou smear with manual screening 2 5-15 Thin prep Papanicolaou smear with manual screeningOrdered By: Rod Ochoa on 01-02-2024 Thin prep Papanicolaou smear with manual screening 106 mg/dL 74-106 Absolute lymphocyte countOrd ered By: Rod Ochoa on 12-30-2023 Lymphocytes Auto (Unsp spec) [#/Vol] 0.94 10*3/uL 0.83-4.51 Automated lymphocyte count a s percentage of total leukocytesOrdered By: Rod Ochoa on 12-30-2023 Lymphocytes/100 WBC Auto (Unsp spec) 19.5 % 19-41 Basophil percentageOrdered B y: Rod Don on 12-30-2023 Basophil percentage 10.8 g/dL 12.0-15.0 [facility] Basophil percentage 89 mg/dL 74-106 [facility] Basophil percentage 137 mmol/L 136-145 [facility] Basophil percentage 4.7 mmol/L 3.5-5.1 [facility] Basophil percentage 108 mmol/L 98-107 [facility] Basophils (Bld) [#/Vol] 4.8 10*3/uL 4.4-11.0 Basophils (Bld) [#/Vol] 2.6 10*3/uL 2.0-7.7 Basophils/100 WBC (Bld) 54.0 % 47-70 [facility] Basophils/100 WBC (Bld) 13.9 % 0-10 [facility] Basophils/100 WBC (Bld) 10.4 % 0-5 [facility] Basophils/100 WBC (Bld) 1.2 % 0-1 [facility] Determination of erythrocyte mean corpuscular volume (MCV)Ordered By: Rod Ochoa on 12-30-2023 MCV (RBC) [Entitic vol] 93.9 fL 81-99 [facility] Erythrocyte distribution wid th ratioOrdered By: [facility] 12-30-2023 Erythrocyte distribution width (RBC) [Ratio] 13.9 % 11.6-14.6 Erythrocyte distribution wid th standard deviationOrdered By: Rod Don 12-30-2023 Erythrocyte distribution width (RBC) [Entitic vol] 48.1 fL 35.1-43.9 [facility] Hematocrit Auto (Bld) [Volum e fraction]Ordered By: Rod Ochoa 12-30-2023 Hematocrit (Bld) [Volume fraction] 33.6 % 37-47 Immature granulocytes/100 WB C Auto (Bld)Ordered By: Rod Ochoa on 12-30-2023 Immature granulocytes/100 WBC (Bld) 1.000 % 0.0-0.9 No Panel InformationOrdered By: Rod Ochoa on 12-30-2023 30.2 pg 27.0-32.0 32.1 g/dL 32-36 169 K/mm3 150-450 11.2 fl 6.2-12.0 0 % 0-5 59 mL/min >60 71 mL/min >60 42.09 ml/min 33.6 RATIO 10-20 25.0 mmol/L 21.0-32.0 RBC Auto (Bld) [#/Vol]Ordere d By: Rod Ochoa on 12-30-2023 RBC (Bld) [#/Vol] 3.58 10*6/uL 4.2-5.4 [facility] Serum or plasma calcium jovanni urement (mass/volume)Ordered By: Rod Ochoa 12-30-2023 Calcium [Mass/Vol] 8.7 mg/dL 8.5-10.1 [facility] Serum or plasma creatinine m easurement (mass/volume)Ordered By: Rod Ochoa 12-30-2023 Creatinine [Mass/Vol] 0.95 mg/dL 0.55-1.02 [facility] Serum or plasma urea nitroge n measurement (mass/volume)Ordered By: Rod Ochoa on 12-30-2023 Urea nitrogen [Mass/Vol] 32 mg/dL 7-18 Thin prep Papanicolaou smear with manual screeningOrdered By: Rod Ochoa 12-30-2023 Thin prep Papanicolaou smear with manual screening 4 5-15 Iron measurement (mass/mass) Ordered By: Rod Ochoa on 12-16-2023 Iron (Unsp spec) [Mass/Mass] 203 ug/dL 50-170 No Panel InformationOrdered By: Rod Ochoa on 12-16-2023 266 ug/dL 250-450 Serum or plasma iron saturat ion measurement (mass fraction)Ordered By: Rod Ochoa on 12-16-2023 Iron saturation [Mass fraction] 76.3 % 15.0-55.0 Lower GI hemoglobin IA Ql (S tl)Ordered By: Daniella Travis on 12-13-2023 Stool Occult Blood (DELIA) Positive Stool gastrointestinal hemoglobin detection by immunologic method Positive Basophil percentageOrdered B y: Daniella Travis on 12-12-2023 Basophil percentage 10.5 g/dL 12.0-15.0 [facility] Basophil percentage 86 mg/dL 74-106 [facility] Basophil percentage 138 mmol/L 136-145 [facility] Basophil percentage 4.6 mmol/L 3.5-5.1 [facility] Basophil percentage 107 mmol/L 98-107 [facility] Basophils (Bld) [#/Vol] 7.3 10*3/uL 4.4-11.0 Chloride [Moles/Vol] 107 mmol/L 98-107 [facility] Glucose [Mass/Vol] 86 mg/dL 74-106 [facility] Hemoglobin (Bld) [Mass/Vol] 10.5 g/dL 12.0-15.0 Potassium [Moles/Vol] 4.6 mmol/L 3.5-5.1 [facility] Sodium [Moles/Vol] 138 mmol/L 136-145 [facility] WBC (Bld) [#/Vol] 7.3 10*3/uL 4.4-11.0 [facility] Determination of erythrocyte mean corpuscular volume (MCV)Ordered By: Daniella Travis on 12-12-2023 MCV (RBC) [Entitic vol] 94.9 fL 81-99 [facility] Erythrocyte distribution wid th ratioOrdered By: Daniella Travis on 12-12-2023 Erythrocyte distribution width (RBC) [Ratio] 13.2 % 11.6-14.6 Erythrocyte distribution wid th standard deviationOrdered By: Daniella Travis on 12-12-2023 Erythrocyte distribution width (RBC) [Entitic vol] 46.4 fL 35.1-43.9 [facility] Hematocrit Auto (Bld) [Volum e fraction]Ordered By: Daniella Travis on 12-12-2023 Hematocrit (Bld) [Volume fraction] 33.6 % 37-47 Laboratory - Chemistry and C hemistry - challengeOrdered By: Daniella Travis on 12-12-2023 CO2 [Moles/Vol] 29.0 mmol/L 21.0-32.0 Urea nitrogen/Creatinine [Mass ratio] 33.6 mg/mg 10-20 Laboratory - Hematology and Cell countsOrdered By: Daniella Travis on 12-12-2023 MCH (RBC) [Entitic mass] 29.7 pg 27.0-32.0 MCHC (RBC) [Mass/Vol] 31.3 g/dL 32-36 [facility] Platelet mean volume (Bld) [Entitic vol] 9.7 fL 6.2-12.0 Platelets (Bld) [#/Vol] 287 10*3/uL 150-450 No Panel InformationOrdered By: Daniella Travis on 12-12-2023 Estimated Creatinine Clearance Calc 40.80 ml/min Estimated GFR (MDRD) Amer 69 mL/min >60 Comment on above: GFR Calc Estimated GFR (MDRD) Non-Af Amer 57 mL/min >60 Comment on above: Non- GFR Calc 29.7 pg 27.0-32.0 31.3 g/dL 32-36 287 K/mm3 150-450 9.7 fl 6.2-12.0 57 mL/min >60 69 mL/min >60 40.80 ml/min 33.6 RATIO 06-24 29.0 mmol/L 21.0-32.0 RBC Auto (Bld) [#/Vol]Ordere d By: Daniella Travis on 12-12-2023 RBC (Bld) [#/Vol] 3.54 10*6/uL 4.2-5.4 [facility] Serum or plasma calcium jovanni urement (mass/volume)Ordered By: Daniella Angy on 12-12-2023 Calcium [Mass/Vol] 9.0 mg/dL 8.5-10.1 [facility] Serum or plasma creatinine m easurement (mass/volume)Ordered By: Daniella Angy on 12-12-2023 Creatinine [Mass/Vol] 0.98 mg/dL 0.55-1.02 [facility] Comment on above: The validity of the calculated GFR & GFRAA in patients over 70 years has not been determined. Clinical correlation is essential. Serum or plasma urea nitroge n measurement (mass/volume)Ordered By: Daniella Angy on 12-12-2023 Urea nitrogen [Mass/Vol] 33 mg/dL 7-18 Thin prep Papanicolaou smear with manual screeningOrdered By: Daniella Angy on 12-12-2023 Thin prep Papanicolaou smear with manual screening 2 5-15 Absolute lymphocyte countOrd ered By: Daniella Angy on 12-01-2023 Lymphocytes Auto (Unsp spec) [#/Vol] 0.72 10*3/uL 0.83-4.51 Automated lymphocyte count a s percentage of total leukocytesOrdered By: Daniella Angy on 12-01-2023 Lymphocytes/100 WBC Auto (Unsp spec) 10.5 % 19-41 Bacteria identified Cx Nom ( U)Ordered By: Daniella Angy on 12-01-2023 Culture, urine Positive Basophil percentageOrdered B y: Daniella Angy on 12-01-2023 Basophils (Bld) [#/Vol] 5.1 10*3/uL 2.0-7.7 Basophils/100 WBC (Bld) 0.9 % 0-1 [facility] Basophils/100 WBC (Bld) 74.0 % 47-70 [facility] Basophils/100 WBC (Bld) 7.6 % 0-10 [facility] Basophils/100 WBC (Bld) 6.4 % 0-5 [facility] Eosinophils/100 WBC (Bld) 6.4 % 0-5 Monocytes/100 WBC (Bld) 7.6 % 0-10 [facility] Neutrophils (Bld) [#/Vol] 5.1 10*3/uL 2.0-7.7 Neutrophils/100 WBC (Bld) 74.0 % 47-70 Basophil percentage 5-10 SEEN /hpf 0-5 [facility] Bilirubin Test strip Ql (U)O rdered By: Daniella Travis on 12-01-2023 Bilirubin Ql (U) Negative Negative Culture, urineOrdered By: Darren Travis on 12-01-2023 Bacteria identified Cx Nom (U) Positive Immature granulocytes/100 WB C Auto (Bld)Ordered By: Daniella Travis on 12-01-2023 Immature granulocytes/100 WBC (Bld) 0.600 % 0.0-0.9 Comment on above: IG% - Immature Granu locytes (promyelocytes, myelocytes and metamyelocytes) > 1% indicates that a LEFT SHIFT is Present. Ketones Test strip Ql (U)Ord ered By: Daniella Travis on 12-01-2023 Ketones Ql (U) Negative Negative Laboratory - Hematology and Cell countsOrdered By: Daniella Travis on 12-01-2023 Nucleated RBC/100 WBC (Bld) [Ratio] 0 % 0-5 Mucus LM Ql (Urine sed)Order ed By: Daniella Travis on 12-01-2023 Mucus Ql (Urine sed) 0 SEEN /hpf [facility] Nitrite Test strip Ql (U)Ord ered By: Daniella Travis on 12-01-2023 Nitrite Ql (U) Positive Negative No Panel InformationOrdered By: Daniella Travis on 12-01-2023 0 % 0-5 Urine RBC 0-5 SEEN /hpf 0-5 0-5 SEEN /hpf 0-5 Protein Test strip Ql (U)Ord ered By: Daniella Travis on 12-01-2023 Protein Ql (U) Negative Negative Squamous epithelial cells de tection in urine sediment by light microscopyOrdered By: Daniella Travis on 12-01-2023 Epithelial cells.squamous LM Ql (Urine sed) 0-5 SEEN /hpf 5-10 Urine blood detectionOrdered By: Daniella Travis on 12-01-2023 RBC Ql (U) 25 /ul Negative Urine clarityOrdered By: Tammy figueredo Angy on 12-01-2023 Clarity (U) Clear Clear Urine color determinationOrd ered By: Daniella Travis on 12-01-2023 Color (U) Yellow Yellow Urine glucose detectionOrder ed By: Daniella Travis on 12-01-2023 Glucose Ql (U) Normal mg/dl Normal Urine leukocyte esterase det ection by dipstickOrdered By: Daniella Travis on 12-01-2023 Leukocyte esterase Test strip Ql (U) 25 /ul Negative Urine pHOrdered By: Daniella constantino on 12-01-2023 pH (U) 5.0 [pH] 5.0 - 8.0 Urine sediment bacteria coun t by microscopy (number/high power field)Ordered By: Daniella Travis on 12-01-2023 Bacteria LM.HPF (Urine sed) [#/Area] 4 /[HPF] None Seen Urine specific gravity measu rementOrdered By: Daniella Travis on 12-01-2023 Specific gravity (U) [Rel density] 1.015 1.002-1.030 Urine urobilinogen measureme ntOrdered By: Daniella Travis on 12-01-2023 Urobilinogen Ql (U) Normal mg/dl Normal [facility] Absolute lymphocyte countOrd ered By: Liliam Barrera on 11-29-2023 Lymphocytes Auto (Unsp spec) [#/Vol] 0.71 10*3/uL 0.83-4.51 Automated lymphocyte count a s percentage of total leukocytesOrdered By: Liliam Barrera on 11-29-2023 Lymphocytes/100 WBC Auto (Unsp spec) 9.5 % 19-41 Basophil percentageOrdered B y: Liliam Barrera on 11-29-2023 Basophil percentage 10.3 g/dL 12.0-15.0 [facility] Basophil percentage 103 mg/dL 74-106 [facility] Basophil percentage 141 mmol/L 136-145 [facility] Basophil percentage 3.9 mmol/L 3.5-5.1 [facility] Basophil percentage 107 mmol/L 98-107 [facility] Basophils (Bld) [#/Vol] 7.5 10*3/uL 4.4-11.0 Basophils (Bld) [#/Vol] 5.5 10*3/uL 2.0-7.7 Basophils/100 WBC (Bld) 0.9 % 0-1 [facility] Basophils/100 WBC (Bld) 73.6 % 47-70 [facility] Basophils/100 WBC (Bld) 7.2 % 0-10 [facility] Basophils/100 WBC (Bld) 8.4 % 0-5 [facility] Chloride [Moles/Vol] 107 mmol/L 98-107 [facility] Eosinophils/100 WBC (Bld) 8.4 % 0-5 Glucose [Mass/Vol] 103 mg/dL 74-106 [facility] Comment on above: Fasting Glucose resu lt from 100 to 125 mg/dL suggests IMPAIRED HOMEOSTASIS per A.D.A. criteria. Hemoglobin (Bld) [Mass/Vol] 10.3 g/dL 12.0-15.0 Monocytes/100 WBC (Bld) 7.2 % 0-10 [facility] Neutrophils (Bld) [#/Vol] 5.5 10*3/uL 2.0-7.7 Neutrophils/100 WBC (Bld) 73.6 % 47-70 Potassium [Moles/Vol] 3.9 mmol/L 3.5-5.1 [facility] Sodium [Moles/Vol] 141 mmol/L 136-145 [facility] WBC (Bld) [#/Vol] 7.5 10*3/uL 4.4-11.0 [facility] Determination of erythrocyte mean corpuscular volume (MCV)Ordered By: Liliam Barrera on 11-29-2023 MCV (RBC) [Entitic vol] 95.7 fL 81-99 [facility] Erythrocyte distribution wid th ratioOrdered By: Liliam Barrera on 11-29-2023 Erythrocyte distribution width (RBC) [Ratio] 13.1 % 11.6-14.6 Erythrocyte distribution wid th standard deviationOrdered By: Liliam Barrera on 11-29-2023 Erythrocyte distribution width (RBC) [Entitic vol] 45.7 fL 35.1-43.9 [facility] Hematocrit Auto (Bld) [Volum e fraction]Ordered By: Liliam Barrera on 11-29-2023 Hematocrit (Bld) [Volume fraction] 33.0 % 37-47 Immature granulocytes/100 WB C Auto (Bld)Ordered By: Liliam Barrera on 11-29-2023 Immature granulocytes/100 WBC (Bld) 0.400 % 0.0-0.9 Comment on above: IG% - Immature Granu locytes (promyelocytes, myelocytes and metamyelocytes) > 1% indicates that a LEFT SHIFT is Present. Laboratory - Chemistry and C hemistry - challengeOrdered By: Liliam Barrera on 11-29-2023 CO2 [Moles/Vol] 27.0 mmol/L 21.0-32.0 Urea nitrogen/Creatinine [Mass ratio] 32.8 mg/mg 10-20 Laboratory - Hematology and Cell countsOrdered By: Liliam Barrera on 11-29-2023 MCH (RBC) [Entitic mass] 29.9 pg 27.0-32.0 MCHC (RBC) [Mass/Vol] 31.2 g/dL [facility] Nucleated RBC/100 WBC (Bld) [Ratio] 0 % 0-5 Platelet mean volume (Bld) [Entitic vol] 11.0 fL 6.2-12.0 Platelets (Bld) [#/Vol] 145 10*3/uL 150-450 No Panel InformationOrdered By: Liliam Barrera on 11-29-2023 Estimated Creatinine Clearance Calc 42.53 ml/min Estimated GFR (MDRD) Amer 72 mL/min >60 Comment on above: GFR Calc Estimated GFR (MDRD) Non-Af Amer 60 mL/min >60 Comment on above: Non- GFR Calc 29.9 pg 27.0-32.0 31.2 g/dL 32-36 145 K/mm3 150-450 11.0 fl 6.2-12.0 0 % 0-5 60 mL/min >60 72 mL/min >60 42.53 ml/min 32.8 RATIO 10-20 27.0 mmol/L 21.0-32.0 RBC Auto (Bld) [#/Vol]Ordere d By: Liliam Barrera on 11-29-2023 RBC (Bld) [#/Vol] 3.45 10*6/uL 4.2-5.4 [facility] Serum or plasma calcium jovanni urement (mass/volume)Ordered By: Liliam Barrera on 11-29-2023 Calcium [Mass/Vol] 8.6 mg/dL 8.5-10.1 [facility] Serum or plasma creatinine m easurement (mass/volume)Ordered By: Liliam Barrera on 11-29-2023 Creatinine [Mass/Vol] 0.94 mg/dL 0.55-1.02 [facility] Comment on above: The validity of the calculated GFR & GFRAA in patients over 70 years has not been determined. Clinical correlation is essential. Serum or plasma urea nitroge n measurement (mass/volume)Ordered By: Liliam Barrera on 11-29-2023 Urea nitrogen [Mass/Vol] 31 mg/dL 7-18 Thin prep Papanicolaou smear with manual screeningOrdered By: Liliam Barrera on 11-29-2023 Thin prep Papanicolaou smear with manual screening 7 5-15 Basophil percentageOrdered B y: Edgar Lopez on 11-28-2023 Basophil percentage 3.7 mg/dL 2.5-4.9 [facility] Basophil percentage 6.2 g/dL 6.4-8.2 [facility] Basophil percentage 0.50 mg/dL 0.20-1.00 [facility] Bilirubin [Mass/Vol] 0.50 mg/dL 0.20-1.00 [facility] Comment on above: For patients on eltr ombopag therapy, use of Dimension [place] TBIL is not recommended. Protein [Mass/Vol] 6.2 g/dL 6.4-8.2 [facility] Direct bilirubinOrdered By: Edgar Lopez on 11-28-2023 Bilirubin.direct [Mass/Vol] 0.17 mg/dL 0.00-0.30 Laboratory - Chemistry and C hemistry - challengeOrdered By: Edgar Lopez on 11-28-2023 Albumin/Globulin [Mass ratio] 0.9 {ratio} 0.9-2.4 ALP [Catalytic activity/Vol] 52 U/L 45117 ALT [Catalytic activity/Vol] 23 U/L Globulin (S) [Mass/Vol] 3.2 g/dL 2.2-4.2 [facility] Magnesium [Mass/Vol] 2.2 mg/dL 1.6-2.6 [facility] Laboratory - CoagulationOrde red By: Edgar Lopez on 11-28-2023 INR Coag (Bld) [Relative time] 1.4 {INR} PT Coag (PPP) [Time] 17.2 s 11.7-14.9 [facility] No Panel InformationOrdered By: Edgar Lopez on 11-28-2023 17.2 SECONDS 11.7-14.9 1.4 3.2 g/dL 2.2-4.2 0.9 RATIO 0.9-2.4 52 U/L 23 U/L 2.2 mg/dL 1.6-2.6 Serum or plasma thyroid stim ulating hormone (TSH) measurement (units/volume)Ordered By: Edgar Lopez on 11-28-2023 TSH Qn 0.83 uIU/mL 0.358-3.74 Thin prep Papanicolaou smear with manual screeningOrdered By: Edgar Lopez on 11-28-2023 Thin prep Papanicolaou smear with manual screening 3.0 g/dL 3.2-5.0 Thin prep Papanicolaou smear with manual screening 20 U/L 15 Absolute lymphocyte countOrd ered By: Curtis Rain on 11-27-2023 Lymphocytes Auto (Unsp spec) [#/Vol] 0.79 10*3/uL 0.83-4.51 Automated lymphocyte count a s percentage of total leukocytesOrdered By: Curtis Rain on 11-27-2023 Lymphocytes/100 WBC Auto (Unsp spec) 8.0 % 19-41 Basophil percentageOrdered B y: Curtis Rain on 11-27-2023 Basophils/100 WBC (Bld) 0.7 % 0-1 [facility] Chloride [Moles/Vol] 108 mmol/L 98-107 [facility] Eosinophils/100 WBC (Bld) 2.1 % 0-5 Glucose [Mass/Vol] 125 mg/dL 74-106 [facility] Comment on above: Fasting Glucose resu lt from 100 to 125 mg/dL suggests IMPAIRED HOMEOSTASIS per A.D.A. criteria. Hemoglobin (Bld) [Mass/Vol] 12.2 g/dL 12.0-15.0 Monocytes/100 WBC (Bld) 6.3 % 0-10 [facility] Neutrophils (Bld) [#/Vol] 8.0 10*3/uL 2.0-7.7 Neutrophils/100 WBC (Bld) 81.5 % 47-70 Potassium [Moles/Vol] 4.2 mmol/L 3.5-5.1 [facility] Sodium [Moles/Vol] 139 mmol/L 136-145 [facility] WBC (Bld) [#/Vol] 9.9 10*3/uL 4.4-11.0 [facility] Determination of erythrocyte mean corpuscular volume (MCV)Ordered By: Curtis Rain on 11-27-2023 MCV (RBC) [Entitic vol] 96.5 fL 81-99 [facility] Erythrocyte distribution wid th ratioOrdered By: Curtis Rain on 11-27-2023 Erythrocyte distribution width (RBC) [Ratio] 12.8 % 11.6-14.6 Erythrocyte distribution wid th standard deviationOrdered By: Curtis Rain on 11-27-2023 Erythrocyte distribution width (RBC) [Entitic vol] 45.7 fL 35.1-43.9 [facility] Hematocrit Auto (Bld) [Volum e fraction]Ordered By: Curtis Rain on 11-27-2023 Hematocrit (Bld) [Volume fraction] 38.7 % 37-47 Immature granulocytes/100 WB C Auto (Bld)Ordered By: Curtis Rain on 11-27-2023 Immature granulocytes/100 WBC (Bld) 1.400 % 0.0-0.9 Comment on above: IG% - Immature Granu locytes (promyelocytes, myelocytes and metamyelocytes) > 1% indicates that a LEFT SHIFT is Present. Laboratory - Chemistry and C hemistry - challengeOrdered By: Curtis Rain on 11-27-2023 CO2 [Moles/Vol] 26.0 mmol/L 21.0-32.0 Urea nitrogen/Creatinine [Mass ratio] 29.6 mg/mg 10-20 Laboratory - Hematology and Cell countsOrdered By: Curtis Rain on 11-27-2023 MCH (RBC) [Entitic mass] 30.4 pg 27.0-32.0 MCHC (RBC) [Mass/Vol] 31.5 g/dL 32-36 [facility] Nucleated RBC/100 WBC (Bld) [Ratio] 0 % 0-5 Platelet mean volume (Bld) [Entitic vol] 10.3 fL 6.2-12.0 Platelets (Bld) [#/Vol] 208 10*3/uL 150-450 No Panel InformationOrdered By: Curtis Rain on 11-27-2023 Estimated Creatinine Clearance Calc 47.04 ml/min Estimated GFR (MDRD) Amer 82 mL/min >60 Comment on above: GFR Calc Estimated GFR (MDRD) Non-Af Amer 68 mL/min >60 Comment on above: Non- GFR Calc RBC Auto (Bld) [#/Vol]Ordere d By: Curtis Rain on 11-27-2023 RBC (Bld) [#/Vol] 4.01 10*6/uL 4.2-5.4 [facility] Serum or plasma calcium jovanni urement (mass/volume)Ordered By: Curtis Rain on 11-27-2023 Calcium [Mass/Vol] 8.9 mg/dL 8.5-10.1 [facility] Serum or plasma creatinine m easurement (mass/volume)Ordered By: Curtis Rain on 11-27-2023 Creatinine [Mass/Vol] 0.85 mg/dL 0.55-1.02 [facility] Comment on above: The validity of the calculated GFR & GFRAA in patients over 70 years has not been determined. Clinical correlation is essential. Serum or plasma urea nitroge n measurement (mass/volume)Ordered By: Curtis Rain on 11-27-2023 Urea nitrogen [Mass/Vol] 25 mg/dL 7-18 Thin prep Papanicolaou smear with manual screeningOrdered By: Curtis Rani on 11-27-2023 Thin prep Papanicolaou smear with manual screening 5 5-15 Basophil percentageOrdered B y: Fei Rivera on 10-31-2023 Basophil percentage 0-5 SEEN /hpf 0-5 [facility] Basophil percentage 10.4 g/dL 12.0-15.0 [facility] Basophils (Bld) [#/Vol] 5.9 10*3/uL 4.4-11.0 Hemoglobin (Bld) [Mass/Vol] 10.4 g/dL 12.0-15.0 WBC (Bld) [#/Vol] 5.9 10*3/uL 4.4-11.0 [facility] Bilirubin Test strip Ql (U)O rdered By: Fei Rivera on 10-31-2023 Bilirubin Ql (U) Negative Negative Determination of erythrocyte mean corpuscular volume (MCV)Ordered By: Fei Rivera on 10-31-2023 MCV (RBC) [Entitic vol] 96.8 fL 81-99 [facility] Erythrocyte distribution wid th ratioOrdered By: Fei Rivera on 10-31-2023 Erythrocyte distribution width (RBC) [Ratio] 13.3 % 11.6-14.6 Erythrocyte distribution wid th standard deviationOrdered By: Fei Rivera on 10-31-2023 Erythrocyte distribution width (RBC) [Entitic vol] 47.0 fL 35.1-43.9 [facility] Hematocrit Auto (Bld) [Volum e fraction]Ordered By: Fei Rivera on 10-31-2023 Hematocrit (Bld) [Volume fraction] 33.7 % 37-47 Ketones Test strip Ql (U)Ord ered By: Fei Rivera on 10-31-2023 Ketones Ql (U) Negative Negative Laboratory - CoagulationOrde red By: Feiaureliano Rivera on 10-31-2023 INR Coag (Bld) [Relative time] 1.3 {INR} PT Coag (PPP) [Time] 15.7 s 11.7-14.9 [facility] Laboratory - Hematology and Cell countsOrdered By: [place] Rivera on 10-31-2023 MCH (RBC) [Entitic mass] 29.9 pg 27.0-32.0 MCHC (RBC) [Mass/Vol] 30.9 g/dL 32-36 [facility] Platelet mean volume (Bld) [Entitic vol] 10.4 fL 6.2-12.0 Platelets (Bld) [#/Vol] 190 10*3/uL 150-450 Mucus LM Ql (Urine sed)Order ed By: Fei Rivera on 10-31-2023 Mucus Ql (Urine sed) 0 SEEN /hpf [facility] Nitrite Test strip Ql (U)Ord ered By: Fei Rivera on 10-31-2023 Nitrite Ql (U) Negative Negative No Panel InformationOrdered By: [place] Rivera on 10-31-2023 Urine RBC 0-5 SEEN /hpf 0-5 29.9 pg 27.0-32.0 30.9 g/dL 32-36 190 K/mm3 150-450 10.4 fl 6.2-12.0 15.7 SECONDS 11.7-14.9 1.3 0-5 SEEN /hpf 0-5 Protein Test strip Ql (U)Ord ered By: Fei Rivera on 10-31-2023 Protein Ql (U) Negative Negative RBC Auto (Bld) [#/Vol]Ordere d By: [place] on 10-31-2023 RBC (Bld) [#/Vol] 3.48 10*6/uL 4.2-5.4 [facility] Squamous epithelial cells de tection in urine sediment by light microscopyOrdered By: Fei Rivera on 10-31-2023 Epithelial cells.squamous LM Ql (Urine sed) 0-5 SEEN /hpf 5-10 Urine blood detectionOrdered By: Fei Rivera on 10-31-2023 RBC Ql (U) 10 /ul Negative Urine clarityOrdered By: Gertrude Rivera on 10-31-2023 Clarity (U) Sl. Cloudy Clear Urine color determinationOrd ered By: Fei Rivera on 10-31-2023 Color (U) Yellow Yellow Urine glucose detectionOrder ed By: Fei Rivera on 10-31-2023 Glucose Ql (U) Normal mg/dl Normal Urine leukocyte esterase det ection by dipstickOrdered By: Fei Rivera on 10-31-2023 Leukocyte esterase Test strip Ql (U) 25 /ul Negative Urine pHOrdered By: Angelica on 10-31-2023 pH (U) 5.0 [pH] 5.0 - 8.0 Urine sediment bacteria coun t by microscopy (number/high power field)Ordered By: Fei Rivera on 10-31-2023 Bacteria LM.HPF (Urine sed) [#/Area] 0 /[HPF] None Seen Urine specific gravity measu rementOrdered By: Fei Rivera on 10-31-2023 Specific gravity (U) [Rel density] 1.020 1.002-1.030 Urine urobilinogen measureme ntOrdered By: Fei Rivera on 10-31-2023 Urobilinogen Ql (U) Normal mg/dl Normal [facility] Basophil percentageOrdered B y: Elizabeth Cai on 10-24-2023 Basophil percentage 95 mg/dL 74-106 [facility] Basophil percentage 141 mmol/L 136-145 [facility] Basophil percentage 4.1 mmol/L 3.5-5.1 [facility] Basophil percentage 110 mmol/L 98-107 [facility] Chloride [Moles/Vol] 110 mmol/L 98-107 [facility] Glucose [Mass/Vol] 95 mg/dL 74-106 [facility] Potassium [Moles/Vol] 4.1 mmol/L 3.5-5.1 [facility] Sodium [Moles/Vol] 141 mmol/L 136-145 [facility] Laboratory - Chemistry and C hemistry - challengeOrdered By: Elizabeth Cai on 10-24-2023 CO2 [Moles/Vol] 28.0 mmol/L 21.0-32.0 Urea nitrogen/Creatinine [Mass ratio] 33.5 mg/mg 10- No Panel InformationOrdered By: Elizabeth Cai on 10-24-2023 Estimated GFR (MDRD) Amer 83 mL/min >60 Comment on above: GFR Calc Estimated GFR (MDRD) Non-Af Amer 68 mL/min >60 Comment on above: Non- GFR Calc Vitamin D 25-Hydroxy 36.4 ng/mL [facility] Comment on above: Vitamin D 25(OH) Sta tus Range Deficiency <20 ng/mL (50nmol/L) Insufficiency 20 - 30 ng/mL (50 - 75 nmol/L) Sufficiency 30 - 100 ng/mL (75 - 250 nmol/L) Toxicity >100 ng/mL (>250 nmol/L) 68 mL/min >60 83 mL/min >60 33.5 RATIO 10 28.0 mmol/L 21.0-32.0 36.4 ng/mL Serum or plasma calcium jovanni urement (mass/volume)Ordered By: Elizabeth Cai on 10-24-2023 Calcium [Mass/Vol] 9.3 mg/dL 8.5-10.1 [facility] Serum or plasma creatinine m easurement (mass/volume)Ordered By: Drariusyannick Keitacalderonsebastian on 10-24-2023 Creatinine [Mass/Vol] 0.84 mg/dL 0.55-1.02 [facility] Comment on above: The validity of the calculated GFR & GFRAA in patients over 70 years has not been determined. Clinical correlation is essential. Serum or plasma thyroid stim ulating hormone (TSH) measurement (units/volume)Ordered By: ananyafairbankyannick Keitasebastian on 10-24-2023 TSH Qn 1.12 uIU/mL 0.358-3.74 Serum or plasma urea nitroge n measurement (mass/volume)Ordered By: [facility] Keitasebastian on 10-24-2023 Urea nitrogen [Mass/Vol] 28 mg/dL 7-18 Thin prep Papanicolaou smear with manual screeningOrdered By: [facility] Bossmansebastian on 10-24-2023 Thin prep Papanicolaou smear with manual screening 3 5-15 Absolute lymphocyte countOrd ered By: lisa Bossmancalderonsebastian on 07-18-2023 Lymphocytes Auto (Unsp spec) [#/Vol] 0.99 10*3/uL 0.83-4.51 Basophil percentageOrdered B y: Elizabeth Bossmancalderonsebastian on 07-18-2023 Basophil percentage 0-5 SEEN /hpf 0-5 [facility] Basophils/100 WBC (Bld) 1.5 % 0-1 [facility] Bilirubin [Mass/Vol] 0.40 mg/dL 0.20-1.00 [facility] Comment on above: For patients on eltr ombopag therapy, use of Dimension [place] TBIL is not recommended. Chloride [Moles/Vol] 105 mmol/L 98-107 [facility] Cholesterol [Mass/Vol] 157 mg/dL <200 [facility] Comment on above: <200 mg/dL Desirable 200-240 mg/dL Borderline >240 mg/dL High Risk Eosinophils/100 WBC (Bld) 6.9 % 0-5 Glucose [Mass/Vol] 114 mg/dL 74-106 [facility] Comment on above: Fasting Glucose resu lt from 100 to 125 mg/dL suggests IMPAIRED HOMEOSTASIS per A.D.A. criteria. Neutrophils (Bld) [#/Vol] 2.2 10*3/uL 2.0-7.7 Neutrophils/100 WBC (Bld) 55.1 % 47-70 Potassium [Moles/Vol] 4.4 mmol/L 3.5-5.1 [facility] Protein [Mass/Vol] 7.0 g/dL 6.4-8.2 [facility] Sodium [Moles/Vol] 139 mmol/L 136-145 [facility] Triglyceride [Mass/Vol] 69 mg/dL <199 [facility] Comment on above: The drugs N-Acetylcy steine and Metamizole may falsely depress this assay.Serum Triglycerides Reference Interval Normal <150 mg/dL Borderline high 150 - 199 mg/dL High 200 - 499 mg/dL Very High > or = 500 mg/dL WBC (Bld) [#/Vol] 3.9 10*3/uL 4.4-11.0 [facility] Bilirubin Test strip Ql (U)O rdered By: Elizabeth Cai on 07-18-2023 Bilirubin Ql (U) Negative Negative Blood erythrocytes count (nu mber/volume)Ordered By: Elizabeth Cai on 07-18-2023 RBC (Bld) [#/Vol] 4.16 10*6/uL 4.2-5.4 [facility] Blood hemoglobin measurement (mass/volume)Ordered By: Elizabeth Cai on 07-18-2023 Hemoglobin (Bld) [Mass/Vol] 13.1 g/dL 12.0-15.0 Blood lymphocytes/100 leukoc ytesOrdered By: Elizabeth Cai on 07-18-2023 Lymphocytes/100 WBC (Bld) 25.3 % 19-41 Blood monocytes/100 leukocyt esOrdered By: Elizabeth Cai on 07-18-2023 Monocytes/100 WBC (Bld) 10.7 % 0-10 [facility] Blood platelet mean volumeOr dered By: Elizabeth Cai on 07-18-2023 Platelet mean volume (Bld) [Entitic vol] 11.1 fL 6.2-12.0 Culture, urineOrdered By: Dolores Cai on 07-18-2023 Bacteria identified Cx Nom (U) Mixed Gram Pos & Gram Neg Org Determination of erythrocyte mean corpuscular volume (MCV)Ordered By: Elizabeth Cai on 07-18-2023 MCV (RBC) [Entitic vol] 99.3 fL 81-99 [facility] Direct bilirubinOrdered By: lisa Cai on 07-18-2023 Bilirubin.direct [Mass/Vol] 0.14 mg/dL 0.00-0.30 Hematocrit Auto (Bld) [Volum e fraction]Ordered By: Annafairbankyannick Cai on 07-18-2023 Hematocrit (Bld) [Volume fraction] 41.3 % 37-47 Ketones Test strip Ql (U)Ord ered By: Elizabeth Cai on 07-18-2023 Ketones Ql (U) Negative Negative Laboratory - Chemistry and C hemistry - challengeOrdered By: [facility] Cent[facility]ann[facility] Keitasebastian on 07-18-2023 ALP [Catalytic activity/Vol] 68 U/L 45-117 ALT [Catalytic activity/Vol] 9 U/L 13-56 CO2 [Moles/Vol] 29.0 mmol/L 21.0-32.0 Globulin (S) [Mass/Vol] 3.6 g/dL 2.2-4.2 [facility] Urea nitrogen/Creatinine [Mass ratio] 22.2 mg/mg 10-20 Laboratory - Hematology and Cell countsOrdered By: Elizabeth Cai on 07-18-2023 Erythrocyte distribution width (RBC) [Entitic vol] 46.6 fL 35.1-43.9 [facility] Erythrocyte distribution width (RBC) [Ratio] 12.8 % 11.6-14.6 Immature granulocytes/100 WBC (Bld) 0.500 % 0.0-0.9 Comment on above: IG% - Immature Granu locytes (promyelocytes, myelocytes and metamyelocytes) > 1% indicates that a LEFT SHIFT is Present. MCH (RBC) [Entitic mass] 31.5 pg 27.0-32.0 Nucleated RBC/100 WBC (Bld) [Ratio] 0 % 0-5 MCHC Auto (RBC) [Mass/Vol]Or dered By: Elizabeth Cai on 07-18-2023 MCHC (RBC) [Mass/Vol] 31.7 g/dL 32-36 [facility] Mucus LM Ql (Urine sed)Order ed By: Elizabeth Cai on 07-18-2023 Mucus Ql (Urine sed) 0 SEEN /hpf [facility] Nitrite Test strip Ql (U)Ord ered By: Elizabeth Cai on 07-18-2023 Nitrite Ql (U) Negative Negative No Panel InformationOrdered By: Elizabeth Cai on 07-18-2023 Urine Transitional Epithelial Cells 0-5 SEEN /hpf 0-5 Estimated GFR (MDRD) Amer 81 mL/min >60 Comment on above: GFR Calc Estimated GFR (MDRD) Non-Af Amer 67 mL/min >60 Comment on above: Non- GFR Calc Thyroid Stimulating Hormone (TSH) 0.28 uIU/mL 0.358-3.74 Platelets bldOrdered By: Forest Cai on 07-18-2023 Platelets (Bld) [#/Vol] 178 10*3/uL 150-450 Protein Test strip Ql (U)Ord ered By: Elizabeth Cai on 07-18-2023 Protein Ql (U) 30 mg/dl Negative Serum or plasma albumin jovanni urement (mass/volume)Ordered By: Elizabeth Cai on 07-18-2023 Albumin [Mass/Vol] 3.4 g/dL 3.2-5.0 [facility] Serum or plasma albumin/glob ulin mass ratioOrdered By: Elizabeth Cai on 07-18-2023 Albumin/Globulin [Mass ratio] 0.9 {ratio} 0.9-2.4 Serum or plasma calcium jovanni urement (mass/volume)Ordered By: Elizabeth Cai on 07-18-2023 Calcium [Mass/Vol] 9.0 mg/dL 8.5-10.1 [facility] Serum or plasma cholesterol in HDL measurement (mass/volume)Ordered By: Elizabeth Cai on 07-18-2023 Cholesterol in HDL [Mass/Vol] 63 mg/dL >40 Comment on above: The drugs N-Acetylcy steine and Metamizole may falsely depress this assay. Reference Range HDL <40 mg/dL Low HDL Cholesterol HDL >or= 60 mg/dL High HDL Cholesterol Serum or plasma cholesterol in VLDL measurement (mass/volume)Ordered By: Elizabeth Cai on 07-18-2023 Cholesterol in VLDL [Mass/Vol] 14 mg/dL 5-40 Serum or plasma creatinine m easurement (mass/volume)Ordered By: Elizabeth Cai on 07-18-2023 Creatinine [Mass/Vol] 0.86 mg/dL 0.55-1.02 [facility] Comment on above: The validity of the calculated GFR & GFRAA in patients over 70 years has not been determined. Clinical correlation is essential. Serum or plasma low density lipoprotein (LDL) cholesterol measurement (mass/volume)Ordered By: Elizabeth Cai on 07-18-2023 Cholesterol in LDL [Mass/Vol] 80 mg/dL 0-130 Serum or plasma urea nitroge n measurement (mass/volume)Ordered By: Elizabeth Cai on 07-18-2023 Urea nitrogen [Mass/Vol] 19 mg/dL 7-18 Squamous epithelial cells de tection in urine sediment by light microscopyOrdered By: Elizabeth Cai on 07-18-2023 Epithelial cells.squamous LM Ql (Urine sed) 0-5 SEEN /hpf 5-10 Thin prep Papanicolaou smear with manual screeningOrdered By: Elizabeth Cai on 07-18-2023 Thin prep Papanicolaou smear with manual screening 15 U/L 15-37 Thin prep Papanicolaou smear with manual screening 5 5-15 Urine blood detectionOrdered By: Elizabeth Cai on 07-18-2023 RBC Ql (U) 25 /ul Negative RBC Ql (U) 0-5 SEEN /hpf 0-5 Urine clarityOrdered By: Forest Cai on 07-18-2023 Clarity (U) Sl. Cloudy Clear Urine color determinationOrd ered By: Elizabeth Cai on 07-18-2023 Color (U) Yellow Yellow Urine glucose detectionOrder ed By: Elizabeth Cai on 07-18-2023 Glucose Ql (U) Normal mg/dl Normal Urine leukocyte esterase det ection by dipstickOrdered By: Elizabeth Cai on 07-18-2023 Leukocyte esterase Test strip Ql (U) 25 /ul Negative Urine pHOrdered By: Nain Cai on 07-18-2023 pH (U) 5.0 [pH] 5.0 - 8.0 Urine sediment bacteria coun t by microscopy (number/high power field)Ordered By: Elizabeth Cai on 07-18-2023 Bacteria LM.HPF (Urine sed) [#/Area] RARE /hpf None Seen Urine specific gravity measu rementOrdered By: Elizabeth Cai on 07-18-2023 Specific gravity (U) [Rel density] 1.025 1.002-1.030 Urobilinogen Auto test strip Ql (U)Ordered By: Elizabeth Cai on 07-18-2023 Urobilinogen Ql (U) Normal mg/dl Normal [facility] Blood hemoglobin measurement (mass/volume)Ordered By: Dr. Ro on 11-03-2022 Hemoglobin (Bld) [Mass/Vol] 10.3 g/dL 12.0-15.0 Hematocrit Auto (Bld) [Volum e fraction]Ordered By: Dr. Ro on 11-03-2022 Hematocrit (Bld) [Volume fraction] 35.5 % 37-47 Absolute lymphocyte countOrd ered By: Dr. Cai on 10-07-2022 Lymphocytes Auto (Unsp spec) [#/Vol] 1.31 10*3/uL 0.83-4.51 Basophil percentageOrdered B y: Dr. Cai on 10-07-2022 Basophils/100 WBC (Bld) 2.0 % 0-1 [facility] Bilirubin [Mass/Vol] 0.30 mg/dL 0.20-1.00 [facility] Comment on above: For patients on eltr ombopag therapy, use of Dimension [place] TBIL is not recommended. Chloride [Moles/Vol] 106 mmol/L 98-107 [facility] Eosinophils/100 WBC (Bld) 6.9 % 0-5 Glucose [Mass/Vol] 108 mg/dL 74-106 [facility] Comment on above: Fasting Glucose resu lt from 100 to 125 mg/dL suggests IMPAIRED HOMEOSTASIS per A.D.A. criteria. Neutrophils (Bld) [#/Vol] 2.6 10*3/uL 2.0-7.7 Neutrophils/100 WBC (Bld) 52.3 % 47-70 Potassium [Moles/Vol] 4.2 mmol/L 3.5-5.1 [facility] Protein [Mass/Vol] 7.1 g/dL 6.4-8.2 [facility] Sodium [Moles/Vol] 141 mmol/L 136-145 [facility] WBC (Bld) [#/Vol] 4.9 10*3/uL 4.4-11.0 [facility] Blood erythrocytes count (nu mber/volume)Ordered By: Dr. Cai on 10-07-2022 RBC (Bld) [#/Vol] 3.50 10*6/uL 4.2-5.4 [facility] Blood hemoglobin measurement (mass/volume)Ordered By: Dr. Cai on 10-07-2022 Hemoglobin (Bld) [Mass/Vol] 8.9 g/dL 12.0-15.0 Blood lymphocytes/100 leukoc ytesOrdered By: Dr. Cai on 10-07-2022 Lymphocytes/100 WBC (Bld) 26.5 % 19-41 Blood monocytes/100 leukocyt esOrdered By: Dr. Cai on 10-07-2022 Monocytes/100 WBC (Bld) 12.1 % 0-10 [facility] Blood platelet mean volumeOr dered By: Dr. Cai on 10-07-2022 Platelet mean volume (Bld) [Entitic vol] 11.0 fL 6.2-12.0 Determination of erythrocyte mean corpuscular volume (MCV)Ordered By: Dr. Cai on 10-07-2022 MCV (RBC) [Entitic vol] 87.4 fL 81-99 [facility] Hematocrit Auto (Bld) [Volum e fraction]Ordered By: Dr. Cai on 10-07-2022 Hematocrit (Bld) [Volume fraction] 30.6 % 37-47 Iron measurement (mass/mass) Ordered By: Dr. Cai on 10-07-2022 Iron (Unsp spec) [Mass/Mass] 20 ug/dL 50-170 Laboratory - Chemistry and C hemistry - challengeOrdered By: Dr. Cai on 10-07-2022 ALP [Catalytic activity/Vol] 55 U/L 45-117 ALT [Catalytic activity/Vol] 16 U/L 13-56 CO2 [Moles/Vol] 29.0 mmol/L 21.0-32.0 Globulin (S) [Mass/Vol] 3.6 g/dL 2.2-4.2 [facility] Urea nitrogen/Creatinine [Mass ratio] 34.6 mg/mg 10-20 Laboratory - Hematology and Cell countsOrdered By: Dr. Cai on 10-07-2022 Erythrocyte distribution width (RBC) [Entitic vol] 45.6 fL 35.1-43.9 [facility] Erythrocyte distribution width (RBC) [Ratio] 14.2 % 11.6-14.6 Immature granulocytes/100 WBC (Bld) 0.200 % 0.0-0.9 Comment on above: IG% - Immature Granu locytes (promyelocytes, myelocytes and metamyelocytes) > 1% indicates that a LEFT SHIFT is Present. MCH (RBC) [Entitic mass] 25.4 pg 27.0-32.0 Nucleated RBC/100 WBC (Bld) [Ratio] 0 % 0-5 MCHC Auto (RBC) [Mass/Vol]Or dered By: Dr. Cai on 10-07-2022 MCHC (RBC) [Mass/Vol] 29.1 g/dL 32-36 [facility] No Panel InformationOrdered By: Dr. Cai on 10-07-2022 Estimated GFR (MDRD) Amer 83 mL/min >60 Comment on above: GFR Calc Estimated GFR (MDRD) Non-Af Amer 68 mL/min >60 Comment on above: Non- GFR Calc Total Iron Binding Capacity 419 ug/dL 250-450 Platelets bldOrdered By: Dr. Cai on 10-07-2022 Platelets (Bld) [#/Vol] 254 10*3/uL 150-450 Serum or plasma albumin jovanni urement (mass/volume)Ordered By: Dr. Cai on 10-07-2022 Albumin [Mass/Vol] 3.5 g/dL 3.2-5.0 [facility] Serum or plasma albumin/glob ulin mass ratioOrdered By: Dr. Cai on 10-07-2022 Albumin/Globulin [Mass ratio] 1.0 {ratio} 0.9-2.4 Serum or plasma calcium jovanni urement (mass/volume)Ordered By: Dr. Cai on 10-07-2022 Calcium [Mass/Vol] 9.1 mg/dL 8.5-10.1 [facility] Serum or plasma creatinine m easurement (mass/volume)Ordered By: Dr. Cai on 10-07-2022 Creatinine [Mass/Vol] 0.84 mg/dL 0.55-1.02 [facility] Comment on above: The validity of the calculated GFR & GFRAA in patients over 70 years has not been determined. Clinical correlation is essential. Serum or plasma ferritin tashi surement (mass/volume)Ordered By: Dr. Cai on 10-07-2022 Ferritin [Mass/Vol] 8 ng/mL 8-252 [facility] Serum or plasma urea nitroge n measurement (mass/volume)Ordered By: Dr. Cai on 10-07-2022 Urea nitrogen [Mass/Vol] 29 mg/dL 7-18 Thin prep Papanicolaou smear with manual screeningOrdered By: Dr. Cai on 10-07-2022 Thin prep Papanicolaou smear with manual screening 18 U/L 15-37 Thin prep Papanicolaou smear with manual screening 6 5-15 Absolute lymphocyte countOrd ered By: Dr. Hernandez on 08-15-2022 Lymphocytes Auto (Unsp spec) [#/Vol] 1.07 10*3/uL 0.83-4.51 Basophil percentageOrdered B y: Dr. Hernandez on 08-15-2022 Basophils/100 WBC (Bld) 1.9 % 0-1 [facility] Bilirubin [Mass/Vol] 0.50 mg/dL 0.20-1.00 [facility] Comment on above: For patients on eltr ombopag therapy, use of [place] TBIL is not recommended. Chloride [Moles/Vol] 107 mmol/L 98-107 [facility] Cholesterol [Mass/Vol] 172 mg/dL <200 [facility] Comment on above: <200 mg/dL Desirable 200-240 mg/dL Borderline >240 mg/dL High Risk Eosinophils/100 WBC (Bld) 6.2 % 0-5 Glucose [Mass/Vol] 87 mg/dL 74-106 [facility] Neutrophils (Bld) [#/Vol] 2.8 10*3/uL 2.0-7.7 Neutrophils/100 WBC (Bld) 57.8 % 47-70 Potassium [Moles/Vol] 4.1 mmol/L 3.5-5.1 [facility] Protein [Mass/Vol] 6.5 g/dL 6.4-8.2 [facility] Sodium [Moles/Vol] 140 mmol/L 136-145 [facility] Triglyceride [Mass/Vol] 92 mg/dL <199 [facility] Comment on above: The drugs N-Acetylcy steine and Metamizole may falsely depress this assay.Serum Triglycerides Reference Interval Normal <150 mg/dL Borderline high 150 - 199 mg/dL High 200 - 499 mg/dL Very High > or = 500 mg/dL WBC (Bld) [#/Vol] 4.9 10*3/uL 4.4-11.0 [facility] Blood erythrocytes count (nu mber/volume)Ordered By: Dr. Hernandez on 08-15-2022 RBC (Bld) [#/Vol] 4.04 10*6/uL 4.2-5.4 [facility] Blood hemoglobin measurement (mass/volume)Ordered By: Dr. Hernandez on 08-15-2022 Hemoglobin (Bld) [Mass/Vol] 12.1 g/dL 12.0-15.0 Blood lymphocytes/100 leukoc ytesOrdered By: Dr. Hernandez on 08-15-2022 Lymphocytes/100 WBC (Bld) 22.0 % 19-41 Blood monocytes/100 leukocyt esOrdered By: Dr. Hernandez on 08-15-2022 Monocytes/100 WBC (Bld) 11.9 % 0-10 [facility] Blood platelet mean volumeOr dered By: Dr. Hernandez on 08-15-2022 Platelet mean volume (Bld) [Entitic vol] 10.5 fL 6.2-12.0 Determination of erythrocyte mean corpuscular volume (MCV)Ordered By: Dr. Hernandez on 08-15-2022 MCV (RBC) [Entitic vol] 92.1 fL 81-99 [facility] Hematocrit Auto (Bld) [Volum e fraction]Ordered By: Dr. Hernandez on 08-15-2022 Hematocrit (Bld) [Volume fraction] 37.2 % 37-47 Laboratory - Chemistry and C hemistry - challengeOrdered By: Dr. Hernnadez on 08-15-2022 ALP [Catalytic activity/Vol] 64 U/L 45-117 ALT [Catalytic activity/Vol] 17 U/L 13-56 CO2 [Moles/Vol] 29.0 mmol/L 21.0-32.0 Globulin (S) [Mass/Vol] 3.3 g/dL 2.2-4.2 [facility] Urea nitrogen/Creatinine [Mass ratio] 28.4 mg/mg 10-20 Laboratory - Hematology and Cell countsOrdered By: Dr. Hernandez on 08-15-2022 Erythrocyte distribution width (RBC) [Entitic vol] 44.8 fL 35.1-43.9 [facility] Erythrocyte distribution width (RBC) [Ratio] 13.2 % 11.6-14.6 Immature granulocytes/100 WBC (Bld) 0.200 % 0.0-0.9 Comment on above: IG% - Immature Granu locytes (promyelocytes, myelocytes and metamyelocytes) > 1% indicates that a LEFT SHIFT is Present. MCH (RBC) [Entitic mass] 30.0 pg 27.0-32.0 Nucleated RBC/100 WBC (Bld) [Ratio] 0 % 0-5 MCHC Auto (RBC) [Mass/Vol]Or dered By: Dr. Hernandez on 08-15-2022 MCHC (RBC) [Mass/Vol] 32.5 g/dL 32-36 [facility] No Panel InformationOrdered By: Dr. Hernandez on 08-15-2022 Estimated Creatinine Clearance Calc 46.29 ml/min Estimated GFR (MDRD) Amer 78 mL/min >60 Comment on above: GFR Calc Estimated GFR (MDRD) Non-Af Amer 65 mL/min >60 Comment on above: Non- GFR Calc Thyroid Stimulating Hormone (TSH) 3.58 uIU/mL 0.358-3.74 Platelets bldOrdered By: Dr. Hernandez on 08-15-2022 Platelets (Bld) [#/Vol] 200 10*3/uL 150-450 Serum or plasma albumin jovanni urement (mass/volume)Ordered By: Dr. Hernandez on 08-15-2022 Albumin [Mass/Vol] 3.2 g/dL 3.2-5.0 [facility] Serum or plasma albumin/glob ulin mass ratioOrdered By: Dr. Hernandez on 08-15-2022 Albumin/Globulin [Mass ratio] 1.0 {ratio} 0.9-2.4 Serum or plasma calcium jovanni urement (mass/volume)Ordered By: Dr. Hernandez on 08-15-2022 Calcium [Mass/Vol] 9.0 mg/dL 8.5-10.1 [facility] Serum or plasma cholesterol in HDL measurement (mass/volume)Ordered By: Dr. Hernandez on 08-15-2022 Cholesterol in HDL [Mass/Vol] 53 mg/dL >40 Comment on above: The drugs N-Acetylcy steine and Metamizole may falsely depress this assay. Reference Range HDL <40 mg/dL Low HDL Cholesterol HDL >or= 60 mg/dL High HDL Cholesterol Serum or plasma cholesterol in VLDL measurement (mass/volume)Ordered By: Dr. Hernandez on 08-15-2022 Cholesterol in VLDL [Mass/Vol] 18 mg/dL 5-40 Serum or plasma creatinine m easurement (mass/volume)Ordered By: Dr. Hernandez on 08-15-2022 Creatinine [Mass/Vol] 0.88 mg/dL 0.55-1.02 [facility] Comment on above: The validity of the calculated GFR & GFRAA in patients over 70 years has not been determined. Clinical correlation is essential. Serum or plasma low density lipoprotein (LDL) cholesterol measurement (mass/volume)Ordered By: Dr. Hernandez on 08-15-2022 Cholesterol in LDL [Mass/Vol] 101 mg/dL 0-130 Serum or plasma urea nitroge n measurement (mass/volume)Ordered By: Dr. Hernandez on 08-15-2022 Urea nitrogen [Mass/Vol] 25 mg/dL 7-18 Thin prep Papanicolaou smear with manual screeningOrdered By: Dr. Hernandez on 08-15-2022 Thin prep Papanicolaou smear with manual screening 19 U/L 15-37 Thin prep Papanicolaou smear with manual screening 4 5-15 Basophil percentageOrdered B y: Dr. Perrin on 08-14-2022 Basophil percentage 5-10 SEEN /hpf 0-5 [facility] Bilirubin Test strip Ql (U)O rdered By: Dr. Perrin on 08-14-2022 Bilirubin Ql (U) Negative Negative Ketones Test strip Ql (U)Ord ered By: Dr. Perrin on 08-14-2022 Ketones Ql (U) 5 mg/dl Negative Mucus LM Ql (Urine sed)Order ed By: Dr. Perrin on 08-14-2022 Mucus Ql (Urine sed) 0 SEEN /hpf [facility] Nitrite Test strip Ql (U)Ord ered By: Dr. Perrin on 08-14-2022 Nitrite Ql (U) Negative Negative Protein Test strip Ql (U)Ord ered By: Dr. Perrin on 08-14-2022 Protein Ql (U) Negative Negative Squamous epithelial cells de tection in urine sediment by light microscopyOrdered By: Dr. Perrin on 08-14-2022 Epithelial cells.squamous LM Ql (Urine sed) 0 SEEN /hpf 5-10 Urine blood detectionOrdered By: Dr. Perrin on 08-14-2022 RBC Ql (U) 10 /ul Negative RBC Ql (U) 0 SEEN /hpf 0-5 Urine clarityOrdered By: Dr. Perrin on 08-14-2022 Clarity (U) Clear Clear Urine color determinationOrd ered By: Dr. Perrin on 08-14-2022 Color (U) Yellow Yellow Urine glucose detectionOrder ed By: Dr. Perrin on 08-14-2022 Glucose Ql (U) Normal mg/dl Normal Urine leukocyte esterase det ection by dipstickOrdered By: Dr. Perrin on 08-14-2022 Leukocyte esterase Test strip Ql (U) 25 /ul Negative Urine pHOrdered By: Dr. William bowen on 08-14-2022 pH (U) 7.0 [pH] 5.0 - 8.0 Urine sediment bacteria coun t by microscopy (number/high power field)Ordered By: Dr. Perrin on 08-14-2022 Bacteria LM.HPF (Urine sed) [#/Area] 0 /[HPF] None Seen Urine specific gravity measu rementOrdered By: Dr. Perrin on 08-14-2022 Specific gravity (U) [Rel density] 1.010 1.002-1.030 Urobilinogen Auto test strip Ql (U)Ordered By: Dr. Perrin on 08-14-2022 Urobilinogen Ql (U) Normal mg/dl Normal [facility] Absolute lymphocyte countOrd ered By: Dr. Perrin on 08-02-2022 Lymphocytes Auto (Unsp spec) [#/Vol] 1.02 10*3/uL 0.83-4.51 Basophil percentageOrdered B y: Dr. Perrin on 08-02-2022 Basophils/100 WBC (Bld) 0.9 % 0-1 [facility] Chloride [Moles/Vol] 109 mmol/L 98-107 [facility] Eosinophils/100 WBC (Bld) 5.0 % 0-5 Glucose [Mass/Vol] 99 mg/dL 74-106 [facility] Neutrophils (Bld) [#/Vol] 4.3 10*3/uL 2.0-7.7 Neutrophils/100 WBC (Bld) 67.2 % 47-70 Potassium [Moles/Vol] 3.8 mmol/L 3.5-5.1 [facility] Sodium [Moles/Vol] 142 mmol/L 136-145 [facility] WBC (Bld) [#/Vol] 6.4 10*3/uL 4.4-11.0 [facility] Blood erythrocytes count (nu mber/volume)Ordered By: Dr. Perrin on 08-02-2022 RBC (Bld) [#/Vol] 4.07 10*6/uL 4.2-5.4 [facility] Blood hemoglobin measurement (mass/volume)Ordered By: Dr. Perrin on 08-02-2022 Hemoglobin (Bld) [Mass/Vol] 11.8 g/dL 12.0-15.0 Blood lymphocytes/100 leukoc ytesOrdered By: Dr. Perrin on 08-02-2022 Lymphocytes/100 WBC (Bld) 15.9 % 19-41 Blood monocytes/100 leukocyt esOrdered By: Dr. Perrin on 08-02-2022 Monocytes/100 WBC (Bld) 10.5 % 0-10 [facility] Blood platelet mean volumeOr dered By: Dr. Perrin on 08-02-2022 Platelet mean volume (Bld) [Entitic vol] 10.7 fL 6.2-12.0 Determination of erythrocyte mean corpuscular volume (MCV)Ordered By: Dr. Perrin on 08-02-2022 MCV (RBC) [Entitic vol] 92.9 fL 81-99 [facility] Hematocrit Auto (Bld) [Volum e fraction]Ordered By: Dr. Perrin on 08-02-2022 Hematocrit (Bld) [Volume fraction] 37.8 % 37-47 Laboratory - Chemistry and C hemistry - challengeOrdered By: Dr. Perrin on 08-02-2022 CO2 [Moles/Vol] 31.0 mmol/L 21.0-32.0 Urea nitrogen/Creatinine [Mass ratio] 29.2 mg/mg 10-20 Laboratory - Hematology and Cell countsOrdered By: Dr. Perrin on 08-02-2022 Erythrocyte distribution width (RBC) [Entitic vol] 46.9 fL 35.1-43.9 [facility] Erythrocyte distribution width (RBC) [Ratio] 13.9 % 11.6-14.6 Immature granulocytes/100 WBC (Bld) 0.500 % 0.0-0.9 Comment on above: IG% - Immature Granu locytes (promyelocytes, myelocytes and metamyelocytes) > 1% indicates that a LEFT SHIFT is Present. MCH (RBC) [Entitic mass] 29.0 pg 27.0-32.0 Nucleated RBC/100 WBC (Bld) [Ratio] 0 % 0-5 MCHC Auto (RBC) [Mass/Vol]Or dered By: Dr. Perrin on 08-02-2022 MCHC (RBC) [Mass/Vol] 31.2 g/dL 32-36 [facility] No Panel InformationOrdered By: Dr. Perrin on 08-02-2022 Estimated Creatinine Clearance Calc 40.74 ml/min Estimated GFR (MDRD) Amer 89 mL/min >60 Comment on above: GFR Calc Estimated GFR (MDRD) Non-Af Amer 74 mL/min >60 Comment on above: Non- GFR Calc Platelets bldOrdered By: Dr. Perrin on 08-02-2022 Platelets (Bld) [#/Vol] 171 10*3/uL 150-450 Serum or plasma calcium jovanni urement (mass/volume)Ordered By: Dr. Perrin on 08-02-2022 Calcium [Mass/Vol] 9.1 mg/dL 8.5-10.1 [facility] Serum or plasma creatinine m easurement (mass/volume)Ordered By: Dr. Perrin on 08-02-2022 Creatinine [Mass/Vol] 0.79 mg/dL 0.55-1.02 [facility] Comment on above: The validity of the calculated GFR & GFRAA in patients over 70 years has not been determined. Clinical correlation is essential. Serum or plasma urea nitroge n measurement (mass/volume)Ordered By: Dr. Perrin on 08-02-2022 Urea nitrogen [Mass/Vol] 23 mg/dL 7-18 Thin prep Papanicolaou smear with manual screeningOrdered By: Dr. Perrin on 08-02-2022 Thin prep Papanicolaou smear with manual screening 2 5-15 Absolute lymphocyte counton 05-19-2022 Lymphocytes Auto (Unsp spec) [#/Vol] 1.05 10*3/uL 0.83-4.51 Work Phone: Basophil percentageon 2021 Basophils/100 WBC (Bld) 1.4 % 0-1 [facility] Work Phone: Bilirubin [Mass/Vol] 0.30 mg/dL 0.20-1.00 [facility] Work Phone: Comment on above: For patients on eltr ombopag therapy, use of [employer] [place] TBIL is not recommended. Chloride [Moles/Vol] 102 mmol/L 98-107 [facility] Work Phone: Eosinophils/100 WBC (Bld) 9.6 % 0-5 Work Phone: [phone] Glucose [Mass/Vol] 92 mg/dL 74-106 [facility] Work Phone: Neutrophils (Bld) [#/Vol] 3.4 10*3/uL 2.0-7.7 Work Phone: Neutrophils/100 WBC (Bld) 58.5 % 47-70 Work Phone: [phone] Potassium [Moles/Vol] 4.2 mmol/L 3.5-5.1 [facility] Work Phone: [phone] Protein [Mass/Vol] 7.5 g/dL 6.4-8.2 [facility] Work Phone: [phone] Sodium [Moles/Vol] 139 mmol/L 136-145 [facility] Work Phone: [phone] WBC (Bld) [#/Vol] 5.8 10*3/uL 4.4-11.0 [facility] Work Phone: [phone] Blood erythrocytes count (nu mber/volume)on 05-19-2022 RBC (Bld) [#/Vol] 4.51 10*6/uL 4.2-5.[address] [facility] Work Phone: [phone] Blood hemoglobin measurement (mass/volume)on 05-19-2022 Hemoglobin (Bld) [Mass/Vol] 13.7 g/dL 12.0-15.0 Work Phone: Blood lymphocytes/100 leukoc yteson 05-19-2022 Lymphocytes/100 WBC (Bld) 18.1 % 19-41 Work Phone: Blood monocytes/100 leukocyt eson 05-19-2022 Monocytes/100 WBC (Bld) 11.9 % 0-10 [facility] Work Phone: Blood platelet mean volumeon 05-19-2022 Platelet mean volume (Bld) [Entitic vol] 11.2 fL 6.2-12.0 Work Phone: Determination of erythrocyte mean corpuscular volume (MCV)on 05-19-2022 MCV (RBC) [Entitic vol] 94.5 fL 81-99 [facility] Work Phone: Hematocrit Auto (Bld) [Volum e fraction]on 05-19-2022 Hematocrit (Bld) [Volume fraction] 42.6 % 37-47 Work Phone: Laboratory - Chemistry and C hemistry - challengeon 05-19-2022 ALP [Catalytic activity/Vol] 61 U/L 45-117 Work Phone: [phone] ALT [Catalytic activity/Vol] 17 U/L 13-56 Work Phone: CO2 [Moles/Vol] 30.0 mmol/L 21.0-32.0 Work Phone: Globulin (S) [Mass/Vol] 4.1 g/dL 2.2-4.2 [facility] Work Phone: Urea nitrogen/Creatinine [Mass ratio] 29.9 mg/mg 10-20 Work Phone: Laboratory - Hematology and Cell countson 05-19-2022 Erythrocyte distribution width (RBC) [Entitic vol] 44.1 fL 35.1-43.9 [facility] Work Phone: Erythrocyte distribution width (RBC) [Ratio] 12.8 % 11.6-14.6 Work Phone: Immature granulocytes/100 WBC (Bld) 0.500 % 0.0-0.9 Work Phone: Comment on above: IG% - Immature Granu locytes (promyelocytes, myelocytes and metamyelocytes) > 1% indicates that a LEFT SHIFT is Present. MCH (RBC) [Entitic mass] 30.4 pg 27.0-32.0 Work Phone: Nucleated RBC/100 WBC (Bld) [Ratio] 0 % 0-5 Work Phone: MCHC Auto (RBC) [Mass/Vol]on 05-19-2022 MCHC (RBC) [Mass/Vol] 32.2 g/dL 32-36 [facility] Work Phone: No Panel Informationon 05-19 Estimated GFR (MDRD) Amer 87 mL/min >60 Work Phone: Comment on above: GFR Calc Estimated GFR (MDRD) Non-Af Amer 72 mL/min >60 Work Phone: Comment on above: Non- GFR Calc Thyroid Stimulating Hormone (TSH) 7.51 uIU/mL 0.358-3.74 Work Phone: Vitamin D 25-Hydroxy 34.1 ng/mL [facility] Work Phone: Comment on above: Vitamin D 25(OH) Sta tus Range Deficiency <20 ng/mL (50nmol/L) Insufficiency 20 - 30 ng/mL (50 - 75 nmol/L) Sufficiency 30 - 100 ng/mL (75 - 250 nmol/L) Toxicity >100 ng/mL (>250 nmol/L) Platelets bldon 05-19-2022 Platelets (Bld) [#/Vol] 196 10*3/uL 150-450 Work Phone: Serum or plasma albumin jovanni urement (mass/volume)on 05-19-2022 Albumin [Mass/Vol] 3.4 g/dL 3.2-5.0 [facility] Work Phone: Serum or plasma albumin/glob ulin mass ratioon 05-19-2022 Albumin/Globulin [Mass ratio] 0.8 {ratio} 0.9-2.4 Work Phone: Serum or plasma calcium jovanni urement (mass/volume)on 05-19-2022 Calcium [Mass/Vol] 9.5 mg/dL 8.5-10.1 [facility] Work Phone: Serum or plasma creatinine m easurement (mass/volume)on 05-19-2022 Creatinine [Mass/Vol] 0.80 mg/dL 0.55-1.02 [facility] Work Phone: Comment on above: The validity of the calculated GFR & GFRAA in patients over 70 years has not been determined. Clinical correlation is essential. Serum or plasma urea nitroge n measurement (mass/volume)on 05-19-2022 Urea nitrogen [Mass/Vol] 24 mg/dL 7-18 Work Phone: Thin prep Papanicolaou smear with manual screeningon 05-19-2022 Thin prep Papanicolaou smear with manual screening 18 U/L 15-37 Work Phone: Thin prep Papanicolaou smear with manual screening 7 5-15 Work Phone: Absolute lymphocyte counton 03-02-2022 Lymphocytes Auto (Unsp spec) [#/Vol] 1.15 10*3/uL 0.83-4.51 Work Phone: Basophil percentageon 2021 Basophils/100 WBC (Bld) 1.0 % 0-1 [facility] Work Phone: Bilirubin [Mass/Vol] 0.50 mg/dL 0.20-1.00 [facility] Work Phone: Comment on above: For patients on eltr ombopag therapy, use of [employer] [place] TBIL is not recommended. Chloride [Moles/Vol] 106 mmol/L 98-107 [facility] Work Phone: Eosinophils/100 WBC (Bld) 3.1 % 0-5 Work Phone: Glucose [Mass/Vol] 99 mg/dL 74-106 [facility] Work Phone: Neutrophils (Bld) [#/Vol] 3.9 10*3/uL 2.0-7.7 Work Phone: Neutrophils/100 WBC (Bld) 66.5 % 47-70 Work Phone: Potassium [Moles/Vol] 4.2 mmol/L 3.5-5.1 [facility] Work Phone: Protein [Mass/Vol] 7.5 g/dL 6.4-8.2 [facility] Work Phone: Sodium [Moles/Vol] 141 mmol/L 136-145 [facility] Work Phone: WBC (Bld) [#/Vol] 5.8 10*3/uL 4.4-11.0 [facility] Work Phone: Blood erythrocytes count (nu mber/volume)on 03-02-2022 RBC (Bld) [#/Vol] 4.27 10*6/uL 4.2-5.[address] [facility] Work Phone: Blood hemoglobin measurement (mass/volume)on 03-02-2022 Hemoglobin (Bld) [Mass/Vol] 13.4 g/dL 12.0-15.0 Work Phone: Blood lymphocytes/100 leukoc yteson 03-02-2022 Lymphocytes/100 WBC (Bld) 19.7 % 19-41 Work Phone: Blood monocytes/100 leukocyt eson 03-02-2022 Monocytes/100 WBC (Bld) 9.2 % 0-10 [facility] Work Phone: Blood platelet mean volumeon 03-02-2022 Platelet mean volume (Bld) [Entitic vol] 10.3 fL 6.2-12.0 Work Phone: Determination of erythrocyte mean corpuscular volume (MCV)on 03-02-2022 MCV (RBC) [Entitic vol] 95.6 fL 81-99 [facility] Work Phone: Hematocrit Auto (Bld) [Volum e fraction]on 03-02-2022 Hematocrit (Bld) [Volume fraction] 40.8 % 37-47 Work Phone: Laboratory - Chemistry and C hemistry - challengeon 03-02-2022 ALP [Catalytic activity/Vol] 69 U/L 45-117 Work Phone: ALT [Catalytic activity/Vol] 15 U/L 13-56 Work Phone: CO2 [Moles/Vol] 30.0 mmol/L 21.0-32.0 Work Phone: Globulin (S) [Mass/Vol] 3.9 g/dL 2.2-4.2 [facility] Work Phone: Urea nitrogen/Creatinine [Mass ratio] 25.9 mg/mg 10-20 Work Phone: Laboratory - Hematology and Cell countson 03-02-2022 Erythrocyte distribution width (RBC) [Entitic vol] 48.3 fL 35.1-43.9 [facility] Work Phone: Erythrocyte distribution width (RBC) [Ratio] 13.7 % 11.6-14.6 Work Phone: Immature granulocytes/100 WBC (Bld) 0.500 % 0.0-0.9 Work Phone: [phone] Comment on above: IG% - Immature Granu locytes (promyelocytes, myelocytes and metamyelocytes) > 1% indicates that a LEFT SHIFT is Present. MCH (RBC) [Entitic mass] 31.4 pg 27.0-32.0 Work Phone: Nucleated RBC/100 WBC (Bld) [Ratio] 0 % 0-5 Work Phone: MCHC Auto (RBC) [Mass/Vol]on 03-02-2022 MCHC (RBC) [Mass/Vol] 32.8 g/dL 32-36 [facility] Work Phone: No Panel Informationon 03-02 Estimated GFR (MDRD) Amer 78 mL/min >60 Work Phone: Comment on above: GFR Calc Estimated GFR (MDRD) Non-Af Amer 64 mL/min >60 Work Phone: Comment on above: Non- GFR Calc Thyroid Stimulating Hormone (TSH) 19.70 uIU/mL 0.358-3.74 Work Phone: Vitamin D 25-Hydroxy 35.6 ng/mL [facility] Work Phone: Comment on above: Vitamin D 25(OH) Sta tus Range Deficiency <20 ng/mL (50nmol/L) Insufficiency 20 - 30 ng/mL (50 - 75 nmol/L) Sufficiency 30 - 100 ng/mL (75 - 250 nmol/L) Toxicity >100 ng/mL (>250 nmol/L) Platelets bldon 03-02-2022 Platelets (Bld) [#/Vol] 188 10*3/uL 150-450 Work Phone: Serum or plasma albumin jovanni urement (mass/volume)on 03-02-2022 Albumin [Mass/Vol] 3.6 g/dL 3.2-5.0 [facility] Work Phone: Serum or plasma albumin/glob ulin mass ratioon 03-02-2022 Albumin/Globulin [Mass ratio] 0.9 {ratio} 0.9-2.4 Work Phone: Serum or plasma calcium jovanni urement (mass/volume)on 03-02-2022 Calcium [Mass/Vol] 9.4 mg/dL 8.5-10.1 [facility] Work Phone: Serum or plasma creatinine m easurement (mass/volume)on 03-02-2022 Creatinine [Mass/Vol] 0.89 mg/dL 0.55-1.02 [facility] Work Phone: Comment on above: The validity of the calculated GFR & GFRAA in patients over 70 years has not been determined. Clinical correlation is essential. Serum or plasma urea nitroge n measurement (mass/volume)on 03-02-2022 Urea nitrogen [Mass/Vol] 23 mg/dL 7-18 Work Phone: Thin prep Papanicolaou smear with manual screeningon 03-02-2022 Thin prep Papanicolaou smear with manual screening 19 U/L 15-37 Work Phone: Thin prep Papanicolaou smear with manual screening 5 5-15 Work Phone: No Panel Informationon 01-29 Thyroid Stimulating Hormone (TSH) 32.30 uIU/mL 0.358-3.74 Work Phone: Absolute lymphocyte counton 11-11-2021 Lymphocytes Auto (Unsp spec) [#/Vol] 1.46 10*3/uL 0.83-4.51 Work Phone: Basophil percentageon 2021 Basophils/100 WBC (Bld) 1.4 % 0-1 [facility] Work Phone: Bilirubin [Mass/Vol] 0.60 mg/dL 0.20-1.00 [facility] Work Phone: Comment on above: For patients on eltr ombopag therapy, use of [employer] [place] TBIL is not recommended. Chloride [Moles/Vol] 107 mmol/L 98-107 [facility] Work Phone: Eosinophils/100 WBC (Bld) 3.5 % 0-5 Work Phone: Glucose [Mass/Vol] 89 mg/dL 74-106 [facility] Work Phone: Neutrophils (Bld) [#/Vol] 3.4 10*3/uL 2.0-7.7 Work Phone: Neutrophils/100 WBC (Bld) 58.9 % 47-70 Work Phone: Potassium [Moles/Vol] 4.0 mmol/L 3.5-5.1 [facility] Work Phone: Protein [Mass/Vol] 7.2 g/dL 6.4-8.2 [facility] Work Phone: Sodium [Moles/Vol] 142 mmol/L 136-145 [facility] [facility] Work [facility]: WBC (Bld) [#/Vol] 5.8 10*3/uL 4.4-11.0 [facility] Work Phone: Blood erythrocytes count (nu mber/volume)on 11-11-2021 RBC (Bld) [#/Vol] 4.42 10*6/uL 4.2-5.[address] [facility] [facility]: Blood hemoglobin measurement (mass/volume)on 11-11-2021 Hemoglobin (Bld) [Mass/Vol] 13.5 g/dL 12.0-15.0 Work Phone: Blood lymphocytes/100 leukoc yteson 11-11-2021 Lymphocytes/100 WBC (Bld) 25.3 % 19-41 Work Phone: Blood monocytes/100 leukocyt eson 11-11-2021 Monocytes/100 WBC (Bld) 10.2 % 0-10 [facility] Work Phone: Blood platelet mean volumeon 11-11-2021 Platelet mean volume (Bld) [Entitic vol] 12.1 fL 6.2-12.0 Work Phone: Determination of erythrocyte mean corpuscular volume (MCV)on 11-11-2021 MCV (RBC) [Entitic vol] 93.7 fL 81-99 [facility] Work Phone: Hematocrit Auto (Bld) [Volum e fraction]on 11-11-2021 Hematocrit (Bld) [Volume fraction] 41.4 % 37-47 Work Phone: Laboratory - Chemistry and C hemistry - challengeon 11-11-2021 ALP [Catalytic activity/Vol] 55 U/L 45-117 Work Phone: ALT [Catalytic activity/Vol] 16 U/L 13-56 Work Phone: CO2 [Moles/Vol] 33.0 mmol/L 21.0-32.0 Work Phone: Globulin (S) [Mass/Vol] 3.7 g/dL 2.2-4.2 [facility] Work Phone: Urea nitrogen/Creatinine [Mass ratio] 27.2 mg/mg 10-20 Work Phone: Laboratory - Hematology and Cell countson 11-11-2021 Erythrocyte distribution width (RBC) [Entitic vol] 51.6 fL 35.1-43.9 [facility] Work Phone: Erythrocyte distribution width (RBC) [Ratio] 14.8 % 11.6-14.6 Work Phone: Immature granulocytes/100 WBC (Bld) 0.700 % 0.0-0.9 Work Phone: Comment on above: IG% - Immature Granu locytes (promyelocytes, myelocytes and metamyelocytes) > 1% indicates that a LEFT SHIFT is Present. MCH (RBC) [Entitic mass] 30.5 pg 27.0-32.0 Work Phone: Nucleated RBC/100 WBC (Bld) [Ratio] 0 % 0-5 Work Phone: MCHC Auto (RBC) [Mass/Vol]on 11-11-2021 MCHC (RBC) [Mass/Vol] 32.6 g/dL 32-36 [facility] Work Phone: No Panel Informationon 11-11 Estimated GFR (MDRD) Amer 65 mL/min >60 Work Phone: Comment on above: GFR Calc Estimated GFR (MDRD) Non-Af Amer 54 mL/min >60 Work Phone: Comment on above: Non- GFR Calc Thyroid Stimulating Hormone (TSH) 15.90 uIU/mL 0.358-3.74 Work Phone: Vitamin D 25-Hydroxy 39.6 ng/mL [facility] Work Phone: Comment on above: Vitamin D 25(OH) Sta tus Range Deficiency <20 ng/mL (50nmol/L) Insufficiency 20 - 30 ng/mL (50 - 75 nmol/L) Sufficiency 30 - 100 ng/mL (75 - 250 nmol/L) Toxicity >100 ng/mL (>250 nmol/L) Platelets bldon 11-11-2021 Platelets (Bld) [#/Vol] 172 10*3/uL 150-450 Work Phone: Serum or plasma albumin jovanni urement (mass/volume)on 11-11-2021 Albumin [Mass/Vol] 3.5 g/dL 3.2-5.0 [facility] Work Phone: Serum or plasma albumin/glob ulin mass ratioon 11-11-2021 Albumin/Globulin [Mass ratio] 0.9 {ratio} 0.9-2.4 Work Phone: Serum or plasma calcium jovanni urement (mass/volume)on 11-11-2021 Calcium [Mass/Vol] 9.1 mg/dL 8.5-10.1 [facility] Work Phone: Serum or plasma creatinine m easurement (mass/volume)on 11-11-2021 Creatinine [Mass/Vol] 1.03 mg/dL 0.55-1.02 [facility] Work Phone: Comment on above: The validity of the calculated GFR & GFRAA in patients over 70 years has not been determined. Clinical correlation is essential. Serum or plasma urea nitroge n measurement (mass/volume)on 11-11-2021 Urea nitrogen [Mass/Vol] 28 mg/dL 7-18 Work Phone: Thin prep Papanicolaou smear with manual screeningon 11-11-2021 Thin prep Papanicolaou smear with manual screening 18 U/L 15-37 Work Phone: Thin prep Papanicolaou smear with manual screening 2 5-15 Work Phone: Vital Signs Date Time Vital Sign Value Performing Clinician Faci lity 06-03-2025 11:20-0400 Body height 172.[address] Elizabeth aCi MD Work Phone: 06-03-2025 11:20-0400 Body mass index (BMI) [Ratio] 24 kg/m2 Dr. Elizabeth Cai MD Work Phone: 06-03-2025 11:20-0400 Body temperature 96.5 [degF] Dr. Elizabeth Cai MD Work Phone: 06-03-2025 11:20-0400 Body weight 71.[address] Elizabeth Cai MD Work Phone: 06-03-2025 11:20-0400 Diastolic blood pressure 60 mm[Hg] Dr. Elizabeth Cai MD Work Phone: 06-03-2025 11:20-0400 Heart rate 74 /min Dr. Elizabeth Cai MD Work Phone: 06-03-2025 11:20-0400 Respiratory rate 18 /min Dr. Elizabeth Cai MD Work Phone: 06-03-2025 11:20-0400 SaO2% (BldA) [Mass fraction] 92 % Dr. Elizabeth Cai MD Work Phone: 06-03-2025 11:20-0400 Systolic blood pressure 122 mm[Hg] Dr. Elizabeth Cai MD Work Phone: 03-28-2025 08:44-0400 Body height 172.[address] Elizabeth Cai MD Work Phone: 03-28-2025 08:44-0400 Body mass index (BMI) [Ratio] 23.6 kg/m2 Dr. Elizabeth Cai MD Work Phone: 03-28-2025 08:44-0400 Body temperature 97.2 [degF] Dr. Elizabeth Cai MD Work Phone: 03-28-2025 08:44-0400 Body weight 70.[address] Elizabeth Cai MD Work Phone: 03-28-2025 08:44-0400 Diastolic blood pressure 68 mm[Hg] Dr. Elizabeth Cai MD Work Phone: 03-28-2025 08:44-0400 Heart rate 69 /min Dr. Elizabeth Cai MD Work Phone: 03-28-2025 08:44-0400 Respiratory rate 16 /min Dr. Elizabeth Cai MD Work Phone: 03-28-2025 08:44-0400 SaO2% (BldA) [Mass fraction] 94 % Dr. Elizabeth Cai MD Work Phone: 03-28-2025 08:44-0400 Systolic blood pressure 114 mm[Hg] Dr. Elizabeth Cai MD Work Phone: 01-02-2025 13:03-0400 Body height 172.[address] Elizabeth Cai MD Work Phone: 01-02-2025 13:03-0400 Body mass index (BMI) [Ratio] 24 kg/m2 Dr. Elizabeth Cai MD Work Phone: 01-02-2025 13:03-0400 Body temperature 97.8 [degF] Dr. Elizabeth Cai MD Work Phone: 01-02-2025 13:03-0400 Body weight 71.[address] Elizabeth Cai MD Work Phone: 01-02-2025 13:03-0400 Diastolic blood pressure 80 mm[Hg] Dr. Elizabeth Cai MD Work Phone: 01-02-2025 13:03-0400 Heart rate 70 /min Dr. Elizabeth Cai MD Work Phone: 01-02-2025 13:03-0400 Respiratory rate 18 /min Dr. Elizabeth Cai MD Work Phone: 01-02-2025 13:03-0400 SaO2% (BldA) [Mass fraction] 98 % Dr. Elizabeth Cai MD Work Phone: 01-02-2025 13:03-0400 Systolic blood pressure 122 mm[Hg] Dr. Elizabeth Cai MD Work Phone: 11-29-2024 11:48-0400 Body height 172.[address] Elizabeth Cai MD Work Phone: 11-29-2024 11:48-0400 Body mass index (BMI) [Ratio] 23.4 kg/m2 Dr. Elizabeth Cai MD Work Phone: 11-29-2024 11:48-0400 Body weight 69.[address] Elizabeth Cai MD Work Phone: 11-29-2024 11:48-0400 Diastolic blood pressure 70 mm[Hg] Dr. Elizabeth Cai MD Work Phone: 11-29-2024 11:48-0400 Heart rate 69 /min Dr. Elizabeth Cai MD Work Phone: 11-29-2024 11:48-0400 Respiratory rate 16 /min Dr. Elizabeth Cai MD Work Phone: 11-29-2024 11:48-0400 Systolic blood pressure 135 mm[Hg] Dr. Elizabeth Cai MD Work Phone: 11-07-2024 10:41-0500 Body height 172.[address] Elizabeth Cai MD Work Phone: 11-07-2024 10:41-0500 Body mass index (BMI) [Ratio] 23.4 kg/m2 Dr. Elizabeth Cai MD Work Phone: 11-07-2024 10:41-0500 Body temperature 98.2 [degF] Dr. Elizabeth Cai MD Work Phone: 11-07-2024 10:41-0500 Body weight 69.[address] Elizabeth Cai MD Work Phone: 11-07-2024 10:41-0500 Diastolic blood pressure 70 mm[Hg] Dr. Elizabeth Cai MD Work Phone: 11-07-2024 10:41-0500 Heart rate 88 /min Dr. Elizabeth Cai MD Work Phone: 11-07-2024 10:41-0500 Respiratory rate 18 /min Dr. Elizabeth Cai MD Work Phone: 11-07-2024 10:41-0500 SaO2% (BldA) [Mass fraction] 97 % Dr. Elizabeth Cai MD Work Phone: 11-07-2024 10:41-0500 Systolic blood pressure 130 mm[Hg] Dr. Elizabeth Cai MD Work Phone: 10-26-2024 12:26-0500 Body mass index (BMI) [Ratio] 23.4 kg/m2 Dr. Elizabeth Cai MD Work Phone: 10-26-2024 12:26-0500 Body temperature 96 [degF] Dr. Elizabeth Cai MD Work Phone: 10-26-2024 12:26-0500 Body weight 69.[address] Elizabeth Cai MD Work Phone: 10-26-2024 12:26-0500 Diastolic blood pressure 58 mm[Hg] Dr. Elizabeth Cai MD Work Phone: 10-26-2024 12:26-0500 Heart rate 70 /min Dr. Elizabeth Cai MD Work Phone: 10-26-2024 12:26-0500 Respiratory rate 14 /min Dr. Elizabeth Cai MD Work Phone: 10-26-2024 12:26-0500 SaO2% (BldA) [Mass fraction] 97 % Dr. Elizabeth Cai MD Work Phone: 10-26-2024 12:26-0500 Systolic blood pressure 112 mm[Hg] Dr. Elizabeth Cai MD Work Phone: 10-17-2024 14:55-0500 Body mass index (BMI) [Ratio] 23.4 kg/m2 Dr. Elizabeth Cai MD Work Phone: 10-17-2024 14:55-0500 Body temperature 96.6 [degF] Dr. Elizabeth Cai MD Work Phone: 10-17-2024 14:55-0500 Body weight 69.[address] Elizabeth Cai MD Work Phone: 10-17-2024 14:55-0500 Diastolic blood pressure 68 mm[Hg] Dr. Elizabeth Cai MD Work Phone: 10-17-2024 14:55-0500 Heart rate 69 /min Dr. Elizabeth Cai MD Work Phone: 10-17-2024 14:55-0500 Respiratory rate 16 /min Dr. Elizabeth Cai MD Work Phone: 10-17-2024 14:55-0500 SaO2% (BldA) [Mass fraction] 98 % Dr. Elizabeth Cai MD Work Phone: 10-17-2024 14:55-0500 Systolic blood pressure 118 mm[Hg] Dr. Elizabeth Cai MD Work Phone: 07-27-2024 11:25-0500 Body mass index (BMI) [Ratio] 23.4 kg/m2 Dr. Elizabeth Cai MD Work Phone: 07-27-2024 11:25-0500 Body temperature 97.3 [degF] Dr. Elizabeth Cai MD Work Phone: 07-27-2024 11:25-0500 Body weight 69.[address] Elizabeth Cai MD Work Phone: 07-27-2024 11:25-0500 Diastolic blood pressure 80 mm[Hg] Dr. Elizabeth Cai MD Work Phone: 07-27-2024 11:25-0500 Heart rate 69 /min Dr. Elizabeth Cai MD Work Phone: 07-27-2024 11:25-0500 Respiratory rate 16 /min Dr. Elizabeth Cai MD Work Phone: 07-27-2024 11:25-0500 SaO2% (BldA) [Mass fraction] 98 % Dr. Elizabeth Cai MD Work Phone: 07-27-2024 11:25-0500 Systolic blood pressure 130 mm[Hg] Dr. Elizabeth Cai MD Work Phone: 01-08-2024 20:44-0400 Diastolic blood pressure 49 mm[Hg] Dr. Elizabeth Cai Work Phone: 01-08-2024 20:44-0400 Heart rate 71 /min Dr. Elizabeth Cai Work Phone: 01-08-2024 20:44-0400 Systolic blood pressure 111 mm[Hg] Dr. Elizabeth Cai Work Phone: 01-08-2024 07:54-0400 Body temperature 97.4 [degF] Dr. Elizabeth Cai Work Phone: 01-08-2024 07:54-0400 Respiratory rate 16 /min Dr. Elizabeth Cai Work Phone: 01-08-2024 07:54-0400 SaO2% (BldA) [Mass fraction] 96 % Dr. Elizabeth Cai Work Phone: 01-05-2024 06:06-0400 Body temperature 97.1 [degF] Dr. Elizabeth Cai Work Phone: 01-05-2024 06:06-0400 Diastolic blood pressure 48 mm[Hg] Dr. Elizabeth Cai Work Phone: 01-05-2024 06:06-0400 Heart rate 69 /min Dr. Elizabeth Cai Work Phone: 01-05-2024 06:06-0400 Respiratory rate 12 /min Dr. Elizabeth Cai Work Phone: 01-05-2024 06:06-0400 SaO2% (BldA) [Mass fraction] 94 % Dr. Elizabeth Cai Work Phone: 01-05-2024 06:06-0400 Systolic blood pressure 111 mm[Hg] Dr. Elizabeth Cai Work Phone: 01-04-2024 14:41-0400 Body height 172.[address] Elizabeth Cai Work Phone: 01-04-2024 14:41-0400 Body weight 69.[address] Elizabeth Cai Work Phone: 01-03-2024 16:49-0400 Body temperature 98.2 [degF] Dr. Elizabeth Cai Work Phone: 01-03-2024 16:49-0400 Diastolic blood pressure 58 mm[Hg] Dr. Elizabeth Cai Work Phone: 01-03-2024 16:49-0400 Heart rate 70 /min Dr. Elizabeth Cai Work Phone: 01-03-2024 16:49-0400 Respiratory rate 12 /min Dr. Elizabeth Cai Work Phone: 01-03-2024 16:49-0400 SaO2% (BldA) [Mass fraction] 99 % Dr. Elizabeth Cai Work Phone: 01-03-2024 16:49-0400 Systolic blood pressure 122 mm[Hg] Dr. Elizabeth Cai Work Phone: 01-03-2024 15:11-0400 Body height 172.[address] Elizabeth Cai Work Phone: 01-03-2024 15:11-0400 Body mass index (BMI) [Ratio] 24.4 kg/m2 Dr. Elizabeth Cai Work Phone: 01-03-2024 15:11-0400 Body weight 72.[address] Elizabeth Cai Work Phone: 01-03-2024 13:08-0400 Body temperature 97.3 [degF] Dr. Elizabeth Cai Work Phone: 01-03-2024 13:08-0400 Diastolic blood pressure 49 mm[Hg] Dr. Elizabeth Cai Work Phone: 01-03-2024 13:08-0400 Heart rate 69 /min Dr. Elizabeth Cai Work Phone: 01-03-2024 13:08-0400 Respiratory rate 18 /min Dr. Elizabeth Cai Work Phone: 01-03-2024 13:08-0400 SaO2% (BldA) [Mass fraction] 99 % Dr. Elizabeth Cai Work Phone: 01-03-2024 13:08-0400 Systolic blood pressure 117 mm[Hg] Dr. Elizabeth Cai Work Phone: 01-03-2024 10:18-0400 Body mass index (BMI) [Ratio] 23.3 kg/m2 Dr. Elizabeth Cai Work Phone: 01-03-2024 10:18-0400 Body weight 69.[address] Elizabeth Cai Work Phone: 12-15-2023 15:04-0400 Body mass index (BMI) [Ratio] 23.7 kg/m2 Dr. Elizabeth Cai Work Phone: 12-15-2023 15:02-0400 Body temperature 97.8 [degF] Dr. Elizabeth Cai Work Phone: 12-15-2023 15:02-0400 Diastolic blood pressure 75 mm[Hg] Dr. Elizabeth Cai Work Phone: 12-15-2023 15:02-0400 Heart rate 71 /min Dr. Elizabeth Cai Work Phone: 12-15-2023 15:02-0400 Respiratory rate 16 /min Dr. Elizabeth Cai Work Phone: 12-15-2023 15:02-0400 SaO2% (BldA) [Mass fraction] 98 % Dr. Elizabeth Cai Work Phone: 12-15-2023 15:02-0400 Systolic blood pressure 154 mm[Hg] Dr. Elizabeth Cai Work Phone: 12-15-2023 07:11-0400 Body temperature 97.8 [degF] Dr. Elizabeth Cai Work Phone: 12-15-2023 07:11-0400 Diastolic blood pressure 75 mm[Hg] Dr. Elizabeth Cai Work Phone: 12-15-2023 07:11-0400 Heart rate 71 /min Dr. Elizabeth Cai Work Phone: 12-15-2023 07:11-0400 Respiratory rate 16 /min Dr. Elizabeth Cai Work Phone: 12-15-2023 07:11-0400 SaO2% (BldA) [Mass fraction] 98 % Dr. Elizabeth Cai Work Phone: 12-15-2023 07:11-0400 Systolic blood pressure 154 mm[Hg] Dr. Elizabeth Cai Work Phone: 12-14-2023 21:05-0400 Body mass index (BMI) [Ratio] 23.7 kg/m2 Dr. Elizabeth Cai Work Phone: 12-14-2023 06:00-0400 Body weight [address] Elizabeth Cai Work Phone: 12-07-2023 08:13-0400 Body height 172.[address] Elizabeth Cai Work Phone: 11-29-2023 14:31-0400 Body temperature 97.5 [degF] Dr. Elizabeth Cai Work Phone: 11-29-2023 14:31-0400 Diastolic blood pressure 57 mm[Hg] Dr. Elizabeth Cai Work Phone: 11-29-2023 14:31-0400 Heart rate 64 /min Dr. Elizabeth Cai Work Phone: 11-29-2023 14:31-0400 Respiratory rate 16 /min Dr. Elizabeth Cai Work Phone: 11-29-2023 14:31-0400 SaO2% (BldA) [Mass fraction] 95 % Dr. Elizabeth Cai Work Phone: 11-29-2023 14:31-0400 Systolic blood pressure 105 mm[Hg] Dr. Elizabeth Cai Work Phone: 11-27-2023 20:12-0400 Body height 172.[address] Elizabeth Cai Work Phone: 11-27-2023 20:12-0400 Body mass index (BMI) [Ratio] 23.1 kg/m2 Dr. Elizabeth Cai Work Phone: 11-27-2023 20:12-0400 Body weight 69.[address] Elizabeth Cai Work Phone: 11-27-2023 18:56-0400 Body temperature 97.6 [degF] Dr. Elizabeth Cai Work Phone: 11-27-2023 18:56-0400 Diastolic blood pressure 73 mm[Hg] Dr. Elizabeth Cai Work Phone: 11-27-2023 18:56-0400 Heart rate 70 /min Dr. Elizabeth Cai Work Phone: 11-27-2023 18:56-0400 Respiratory rate 17 /min Dr. Elizabeth Cai Work Phone: 11-27-2023 18:56-0400 SaO2% (BldA) [Mass fraction] 95 % Dr. Elizabeth Cai Work Phone: 11-27-2023 18:56-0400 Systolic blood pressure 139 mm[Hg] Dr. Elizabeth Cai Work Phone: 11-27-2023 16:56-0400 Body height 172.[address] Elizabeth Cai Work Phone: 11-27-2023 16:56-0400 Body mass index (BMI) [Ratio] 24.5 kg/m2 Dr. Elizabeth Cai Work Phone: 11-27-2023 16:56-0400 Body weight 73.[address] Elizabeth Cai Work Phone: 11-09-2023 09:18-0500 Heart rate 70 /min Dr. Elizabeth Cai Work Phone: 11-09-2023 09:00-0500 Body temperature 97.7 [degF] Dr. Elizabeth Cai Work Phone: 11-09-2023 09:00-0500 Diastolic blood pressure 60 mm[Hg] Dr. Elizabeth Cai Work Phone: 11-09-2023 09:00-0500 Respiratory rate 14 /min Dr. Elizabeth Cai Work Phone: 11-09-2023 09:00-0500 SaO2% (BldA) [Mass fraction] 96 % Dr. Elizabeth Cai Work Phone: 11-09-2023 09:00-0500 Systolic blood pressure 118 mm[Hg] Dr. Elizabeth Cai Work Phone: 11-08-2023 15:10-0500 Body height 172.[address] Elizbaeth Cai Work Phone: 11-08-2023 15:10-0500 Body mass index (BMI) [Ratio] 23 kg/m2 Dr. Elizabeth Cai Work Phone: 11-08-2023 15:10-0500 Body weight 68.[address] Elizabeth Cai Work Phone: 10-28-2023 08:02-0500 Body mass index (BMI) [Ratio] 23.2 kg/m2 Dr. Elizabeth Cai Work Phone: 10-28-2023 08:02-0500 Body weight 69.[address] Elizabeth Cai Work Phone: 10-24-2023 11:16-0500 Body mass index (BMI) [Ratio] 23.3 kg/m2 Dr. Elizabeth Cai Work Phone: 10-24-2023 11:16-0500 Body temperature 97.8 [degF] Dr. Elizabeth Cai Work Phone: 10-24-2023 11:16-0500 Body weight 69.[address] Elizabeth Cai Work Phone: 10-24-2023 11:16-0500 Diastolic blood pressure 60 mm[Hg] Dr. Elizabeth Cai Work Phone: 10-24-2023 11:16-0500 Heart rate 60 /min Dr. Elizabeth Cai Work Phone: 10-24-2023 11:16-0500 Respiratory rate 16 /min Dr. Elizabeth Cai Work Phone: 10-24-2023 11:16-0500 SaO2% (BldA) [Mass fraction] 93 % Dr. Elizabeth Cai Work Phone: 10-24-2023 11:16-0500 Systolic blood pressure 116 mm[Hg] Dr. Elizabeth Cai Work Phone: 10-19-2023 10:02-0500 Body mass index (BMI) [Ratio] 23.2 kg/m2 Dr. Elizabeth Cai Work Phone: 10-19-2023 10:02-0500 Body weight 69.[address] Elizabeth Cai Work Phone: 10-19-2023 10:02-0500 Diastolic blood pressure 67 mm[Hg] Dr. Elizabeth Cai Work Phone: 10-19-2023 10:02-0500 Heart rate 68 /min Dr. Elizabeth Cai Work Phone: 10-19-2023 10:02-0500 Respiratory rate 18 /min Dr. Elizabeth Cai Work Phone: 10-19-2023 10:02-0500 SaO2% (BldA) [Mass fraction] 96 % Dr. Elizabeth Cai Work Phone: 10-19-2023 10:02-0500 Systolic blood pressure 109 mm[Hg] Dr. Elizabeth Cai Work Phone: 09-02-2023 11:16-0500 Body mass index (BMI) [Ratio] 23.8 kg/m2 Dr. Elizabeth Cai Work Phone: 09-02-2023 11:16-0500 Body temperature 99.1 [degF] Dr. Elizabeth Cai Work Phone: 09-02-2023 11:16-0500 Body weight 71.[address] Elizabeth Cai Work Phone: 09-02-2023 11:16-0500 Diastolic blood pressure 56 mm[Hg] Dr. Elizabeth Cai Work Phone: 09-02-2023 11:16-0500 Heart rate 70 /min Dr. Elizabeth Cai Work Phone: 09-02-2023 11:16-0500 Respiratory rate 16 /min Dr. Elizabeth Cai Work Phone: 09-02-2023 11:16-0500 SaO2% (BldA) [Mass fraction] 96 % Dr. Elizabeth Cai Work Phone: 09-02-2023 11:16-0500 Systolic blood pressure 106 mm[Hg] Dr. Elizabeth Cai Work Phone: 07-18-2023 11:07-0500 Body height 172.[address] Elizabeth Cai Work Phone: 07-18-2023 11:07-0500 Body mass index (BMI) [Ratio] 23.1 kg/m2 Dr. Elizabeth Cai Work Phone: 07-18-2023 11:07-0500 Body temperature 98 [degF] Dr. Elizabeth Cai Work Phone: 07-18-2023 11:07-0500 Body weight [address] Elizabeth Cai Work Phone: 07-18-2023 11:07-0500 Diastolic blood pressure 78 mm[Hg] Dr. Elizabeth Cai Work Phone: 07-18-2023 11:07-0500 Heart rate 63 /min Dr. Elizabeth Cai Work Phone: 07-18-2023 11:07-0500 Respiratory rate 16 /min Dr. Elizabeth Cai Work Phone: 07-18-2023 11:07-0500 SaO2% (BldA) [Mass fraction] 97 % Dr. Elizabeth Cai Work Phone: 07-18-2023 11:07-0500 Systolic blood pressure 122 mm[Hg] Dr. Elizabeth Cai Work Phone: 06-14-2023 11:28-0400 Body temperature 96.4 [degF] Dr. Elizabeth Cai Work Phone: 06-14-2023 11:28-0400 Diastolic blood pressure 62 mm[Hg] Dr. Elizabeth Cai Work Phone: 06-14-2023 11:28-0400 Heart rate 69 /min Dr. Elizabeth Cai Work Phone: 06-14-2023 11:28-0400 Respiratory rate 18 /min Dr. Elizabeth Cai Work Phone: 06-14-2023 11:28-0400 SaO2% (BldA) [Mass fraction] 97 % Dr. Elizabeth Cai Work Phone: 06-14-2023 11:28-0400 Systolic blood pressure 141 mm[Hg] Dr. Elizabeth Cai Work Phone: 11-01-2022 14:14-0500 Body height 172.[address] Rod Ochoa Work Phone: 11-01-2022 14:14-0500 Body mass index (BMI) [Ratio] 22.3 kg/m2 Dr. Rod Ochoa Work Phone: 11-01-2022 14:14-0500 Body temperature 97.1 [degF] Dr. Rod Ochoa Work Phone: 11-01-2022 14:14-0500 Body weight 66.[address] Rod Ochoa Work Phone: 11-01-2022 14:14-0500 Diastolic blood pressure 74 mm[Hg] Dr. Rod Ochoa Work Phone: 11-01-2022 14:14-0500 Heart rate 76 /min Dr. Rod Ochoa Work Phone: 11-01-2022 14:14-0500 Respiratory rate 17 /min Dr. Rod Ochoa Work Phone: 11-01-2022 14:14-0500 SaO2% (BldA) [Mass fraction] 96 % Dr. Rod Ochoa Work Phone: 11-01-2022 14:14-0500 Systolic blood pressure 136 mm[Hg] Dr. Rod Ochoa Work Phone: 10-07-2022 15:10-0500 Body height 172.[address] Rod Ochoa Work Phone: 0(515)649-163779 [place] [address] 10-07-2022 15:10-0500 Body mass index (BMI) [Ratio] 22.5 kg/m2 Dr. Rod Ochoa Work Phone: 9(145)625-603379 [place] [address] 10-07-2022 15:10-0500 Body temperature 95 [degF] Dr. Rod Ochoa Work Phone: 10-07-2022 15:10-0500 Body weight 67.[address] Rod Ochoa Work Phone: 10-07-2022 15:10-0500 Diastolic blood pressure 76 mm[Hg] Dr. Rod Ochoa Work Phone: 10-07-2022 15:10-0500 Heart rate 69 /min Dr. Rod Ochoa Work Phone: 10-07-2022 15:10-0500 Respiratory rate 18 /min Dr. Rod Ochoa Work Phone: 10-07-2022 15:10-0500 SaO2% (BldA) [Mass fraction] 100 % Dr. Rod Ochoa Work Phone: 10-07-2022 15:10-0500 Systolic blood pressure 128 mm[Hg] Dr. Rod Ochoa Work Phone: 3(953)653-198179 [place] [address] 09-20-2022 14:24-0500 Body mass index (BMI) [Ratio] 22.5 kg/m2 Dr. Rod Ochoa Work Phone: 09-20-2022 14:24-0500 Body weight 67.[address] Rod Ochoa Work Phone: 09-20-2022 14:24-0500 Diastolic blood pressure 62 mm[Hg] Dr. Rod Ochoa Work Phone: 5(207)168-184579 [place] [address] 09-20-2022 14:24-0500 Heart rate 72 /min Dr. Rod Ochoa Work Phone: 3(596)[phone] [place] [address] 09-20-2022 14:24-0500 Respiratory rate 16 /min Dr. Rod Ochoa Work Phone: 8(287)732-348879 [place] [address] 09-20-2022 14:24-0500 Systolic blood pressure 120 mm[Hg] Dr. Rod Ochoa Work Phone: 1(828)651-160179 [place] [address] 08-16-2022 11:39-0500 Body temperature 98 [degF] Dr. Rod Ochoa Work Phone: 9(290)996-357479 [place] [address] 08-16-2022 11:39-0500 Diastolic blood pressure 66 mm[Hg] Dr. Rod Ochoa Work Phone: 1(665)751-415379 [place] [address] 08-16-2022 11:39-0500 Heart rate 78 /min Dr. Rod Ochoa Work Phone: 08-16-2022 11:39-0500 Respiratory rate 16 /min Dr. Rod Ochoa Work Phone: 08-16-2022 11:39-0500 SaO2% (BldA) [Mass fraction] 98 % Dr. Rod Ochoa Work Phone: 3(615)319-890279 [place] [address] 08-16-2022 11:39-0500 Systolic blood pressure 128 mm[Hg] Dr. Rod Ochoa Work Phone: 08-14-2022 17:25-0500 Body mass index (BMI) [Ratio] 22.1 kg/m2 Dr. Rod Ochoa Work Phone: 08-14-2022 17:25-0500 Body weight 66.[address] Rod Ochoa Work Phone: 08-02-2022 14:05-0500 Heart rate 70 /min [facility] 08-02-2022 14:05-0500 Respiratory rate 18 /min [facility] 08-02-2022 14:05-0500 SaO2% (BldA) [Mass fraction] 95 % 08-02-2022 12:34-0500 Diastolic blood pressure 77 mm[Hg] 08-02-2022 12:34-0500 Systolic blood pressure 154 mm[Hg] 08-02-2022 10:20-0500 Body height 172.72 cm [facility] Work Phone: 08-02-2022 10:20-0500 Body mass index (BMI) [Ratio] 23.5 kg/m2 08-02-2022 10:20-0500 Body temperature 97.5 [degF] [facility] 08-02-2022 10:20-0500 Body weight 70.1 kg [facility] 07-26-2022 01:08-0500 Diastolic blood pressure 60 mm[Hg] 07-26-2022 01:08-0500 Heart rate 80 /min [facility] 07-26-2022 01:08-0500 Respiratory rate 18 /min [facility] 07-26-2022 01:08-0500 Systolic blood pressure 145 mm[Hg] 07-26-2022 00:29-0500 SaO2% (BldA) [Mass fraction] 98 % 07-25-2022 22:29-0500 Body height 172.72 cm [facility] Work Phone: 07-25-2022 22:29-0500 Body mass index (BMI) [Ratio] 23.3 kg/m2 07-25-2022 22:29-0500 Body temperature 97.9 [degF] [facility] 07-25-2022 22:29-0500 Body weight 69.8 kg [facility] 03-09-2022 14:15-0400 Heart rate 76 /min Dr. Rod Ochoa Work Phone: Work Phone: 03-09-2022 14:15-0400 Respiratory rate 18 /min Dr. Rod Ochoa Work Phone: Work Phone: 03-09-2022 14:15-0400 SaO2% (BldA) [Mass fraction] 99 % Dr. Rod Ochoa Work Phone: Work Phone: 03-09-2022 12:04-0400 Body height 172.[address] Rod Ochoa Work Phone: Work Phone: 03-09-2022 12:04-0400 Body mass index (BMI) [Ratio] 24.5 kg/m2 Dr. Rod Ochoa Work Phone: Work Phone: 03-09-2022 12:04-0400 Body temperature 98.2 [degF] Dr. Rod Ochoa Work Phone: Work Phone: 03-09-2022 12:04-0400 Body weight 73.[address] Rod Ochoa Work Phone: Work Phone: 03-09-2022 12:04-0400 Diastolic blood pressure 59 mm[Hg] Dr. Rod Ochoa Work Phone: Work Phone: 03-09-2022 12:04-0400 Systolic blood pressure 169 mm[Hg] Dr. Rod Ochoa Work Phone: Work Phone: 02-25-2022 14:57-0400 Body height 172.[address] Rod Ochoa Work Phone: Work Phone: 02-25-2022 14:57-0400 Body mass index (BMI) [Ratio] 22.9 kg/m2 Dr. Rod Ochoa Work Phone: Work Phone: 02-25-2022 14:57-0400 Body weight 68.[address] Rod Ochoa Work Phone: Work Phone: 02-25-2022 14:57-0400 Diastolic blood pressure 70 mm[Hg] Dr. Rod Ochoa Work Phone: Work Phone: 02-25-2022 14:57-0400 Heart rate 70 /min Dr. Rod Ochoa Work Phone: Work Phone: 02-25-2022 14:57-0400 Respiratory rate 18 /min Dr. Rod Ochoa Work Phone: Work Phone: 02-25-2022 14:57-0400 SaO2% (BldA) [Mass fraction] 99 % Dr. Rod Ochoa Work Phone: Work Phone: 02-25-2022 14:57-0400 Systolic blood pressure 142 mm[Hg] Dr. Rod Ochoa Work Phone: Work Phone: 02-21-2022 12:55-0400 Diastolic blood pressure 67 mm[Hg] Work Phone: 02-21-2022 12:55-0400 Heart rate 71 /min [facility] Work Phone: 02-21-2022 12:55-0400 Respiratory rate 15 /min [facility] Work Phone: 02-21-2022 12:55-0400 SaO2% (BldA) [Mass fraction] 98 % Work Phone: 02-21-2022 12:55-0400 Systolic blood pressure 138 mm[Hg] Work Phone: 02-21-2022 11:58-0400 Body height 172.72 cm [facility] Work Phone: 02-21-2022 11:58-0400 Body mass index (BMI) [Ratio] 23.9 kg/m2 Work Phone: 02-21-2022 11:58-0400 Body temperature 97.2 [degF] [facility] Work Phone: 02-21-2022 11:58-0400 Body weight 71.4 kg [facility] Work Phone: Encounters Encounter Date Encounter Type Care Provider Facility Start: 07-04-2025 End: 07-04-[facility] Start: 06-19-2025 End: 06-19-2025 ambulatory [facility] Facility: Start: 06-05-2025 End: 06-05-[address] Elizabeth Cai MD Work Phone: -[facility] Start: 06-05-2025 End: 06-05-[address] Fei Rivera MD -[facility] Work Phone: Start: 06-03-2025 End: 06-03-[address] Elizabeth Cai MD -[facility] Work Phone: Start: 06-03-2025 End: 06-03-[address] Elizabeth Cai MD Work Phone: -[facility] Start: 04-16-2025 End: 04-16-[address] Elizabeth Cai MD Work Phone: -Laboratory Specimen Start: 04-16-2025 End: 04-16-2025 Patient encounter procedure Capri Rankinrah [employer] WORKER-C -Laboratory Specimen Work Phone: Start: 04-16-2025 End: 04-16-2025 ambulatory [facility] Facility: Start: 03-28-2025 End: 03-28-[address] Elizabeth Cai MD Work Phone: -Laboratory Specimen Start: 03-28-2025 End: 03-28-2025 Patient encounter procedure Capri Vail [employer]ING RO[employer] WORKER-C -Laboratory Specimen Work Phone: Start: 03-28-2025 End: 03-28-2025 Patient encounter procedure Capri Vail [employer]ING RO[employer] WORKER-C -[facility] Work Phone: Start: 03-28-2025 End: 03-28-[address] Elizabeth Cai MD Work Phone: -[facility] Start: 03-28-2025 End: 03-28-2025 ambulatory [facility] Facility: Start: 03-09-2025 End: 03-09-[address] Elizabeth Cai MD Work Phone: -[facility] Start: 03-09-2025 End: 03-09-[address] Fei Rivera MD -[facility] Work Phone: Start: 01-02-2025 End: 01-02-[address] Elizabeth Cai MD -[facility] Work Phone: Start: 01-02-2025 End: 01-02-2025 ambulatory [facility] Facility:[facility] Start: 01-02-2025 End: 01-02-2025 ambulatory [facility] Facility: Start: 12-13-2024 End: 12-13-2024 ambulatory [facility] Facility:[facility] Start: 12-13-2024 End: 12-13-[address] Fei Rivera MD -[facility] Work Phone: Start: 12-03-2024 End: 12-03-2024 ambulatory [facility] Facility:[facility] Start: 12-03-2024 End: 12-03-[address] Fei Rivera MD -[facility] Work Phone: Start: 11-29-2024 Non-patient / Non-visit Dr. Aidan murcia MD -[facility] Start: 11-29-2024 End: 11-29-2024 Patient encounter procedure Funmilayo HERNANDEZ -[facility] Work Phone: Start: 11-29-2024 End: 11-29-[address] Elizabeth Cai MD Work Phone: Work Phone: Start: 11-29-2024 End: 11-29-2024 ambulatory [facility] Facility: Start: 11-07-2024 End: 11-07-2024 Patient encounter procedure Jomar HERNANDEZ [facility] Work Phone: Start: 11-07-2024 End: 11-07-[address] Elizabeth Cai MD Work Phone: Work Phone: Start: 11-07-2024 End: 11-07-2024 [facility] Start: 10-26-2024 End: 10-26-2024 Patient encounter procedure Jomar HERNANDEZ [facility] Work Phone: Start: 10-26-2024 End: 10-26-2024 ambulatory [facility] Facility:[facility] Start: 10-17-2024 End: 10-17-2024 [facility] Start: 10-17-2024 End: 10-17-2024 [facility] Start: 09-24-2024 End: 09-24-[address] Elizabeth Cai MD -Laboratory, [facility] Start: 09-24-2024 End: 09-24-2024 ambulatory [facility] Facility: Start: 08-01-2024 End: 08-01-[address] Elizabeth Cai MD -Laboratory, [place] Start: 08-01-2024 End: 08-01-2024 ambulatory [facility] Facility: Start: 07-27-2024 End: 07-27-[address] Elizabeth Cai MD -[facility] Work Phone: Start: 07-27-2024 End: 07-27-2024 ambulatory [facility] Facility:[facility] Start: 01-03-2024 End: 01-03-2024 Emergency department patient visit Dr. Elizabeth Cai Work Phone: Work Phone: Start: 01-03-2024 End: 01-03-2024 Dr. Elizabeth Cai Work Phone: -Emergency Department Work Phone: Start: 01-03-2024 End: 01-03-[address] Elizabeth Cai Work Phone: Work Phone: Start: 01-03-2024 End: 01-03-2024 Dr. Elizabeth Cai Work Phone: -[facility] Work Phone: Start: 01-02-2024 End: 01-02-2024 Dr. Elizabeth Cai Work Phone: [facility] Work Phone: Start: 01-02-2024 End: 01-02-[address] Elizabeth Cai Work Phone: Work Phone: Start: 01-02-2024 End: 01-02-2024 Dr. Elizabeth Cai Work Phone: -[facility] Work Phone: Start: 12-15-2023 Dr. Elizabeth Cai Work Phone: -Transitional Care Unit Start: 12-15-2023 Non-patient / Non-visit Dr. Dolores Cai Work Phone: [facility] [facility] Work Phone: Start: 12-15-2023 Dr. Elizabeth Cai Work Phone: [facility] Work Phone: Start: 12-13-2023 Non-patient / Non-visit Dr. Dolores Cai Work Phone: [facility] Work Phone: Start: 12-13-2023 Dr. Elizabeth Cai Work Phone: [facility] Work Phone: Start: 12-12-2023 Non-patient / Non-visit Dr. Dolores Cai Work Phone: [facility] [facility] Work Phone: Start: 12-12-2023 Dr. Elizabeth Cai Work Phone: [facility] Work Phone: Start: 12-08-2023 Non-patient / Non-visit Dr. Dolores Cai Work Phone: [facility] Work Phone: Start: 12-08-2023 Dr. Elizabeth Cai Work Phone: [facility] Work Phone: Start: 12-06-2023 Non-patient / Non-visit Dr. Dolores Cai Work Phone: [facility] Work Phone: Start: 12-06-2023 Dr. [facility] Work [facility]: Start: 12-05-2023 Non-patient / Non-visit Dr. Dolores Cai Work Phone: [facility] Work Phone: Start: 12-05-2023 Dr. Elizabeth Cai Work Phone: [facility] Work Phone: Start: 12-04-2023 Non-patient / Non-visit Dr. Dolores Cai Work Phone: [facility] Work Phone: Start: 12-04-2023 Dr. Elizabeth Cai Work Phone: [facility] Work Phone: Start: 12-01-2023 Non-patient / Non-visit Dr. Dolores Cai Work Phone: [facility] Work Phone: Start: 12-01-2023 Dr. Elizabeth Cai Work Phone: [facility] [facility] Work Phone: Start: 11-30-2023 Non-patient / Non-visit Dr. Dolores Cai Work Phone: [facility] Work Phone: Start: 11-30-2023 Dr. Elizabeth Cai Work Phone: [facility] Work Phone: Start: 11-29-2023 End: 12-15-2023 Evaluation and management of inpatient [facility] Start: 11-29-2023 End: 12-15-2023 Dr. [facility] Start: 11-29-2023 Non-patient / Non-visit Dr. Dolores Cai Work Phone: [facility] Work Phone: Start: 11-29-2023 Dr. Elizabeth Cai Work Phone: [facility] Work Phone: Start: 11-28-2023 Non-patient / Non-visit Dr. Dolores Cai Work Phone: [facility] Work Phone: Start: 11-28-2023 End: 11-28-[address] Elizabeth Cai Work Phone: [facility] Work Phone: Start: 11-28-2023 End: 11-28-2023 Dr. Elizabeth Cai Work Phone: [facility] Work Phone: Start: 11-27-2023 End: 11-29-2023 Evaluation and management of inpatient Dr. Elizabeth Cai [facility] Work Phone: Start: 11-27-2023 Non-patient / Non-visit Dr. Dolores Cai Work Phone: [facility] Work Phone: Start: 11-27-2023 End: 11-29-2023 Dr. [facility]: Start: 11-16-2023 End: 11-16-[address] Elizabeth Cai Work Phone: [facility] Work Phone: Start: 11-16-2023 End: 11-16-2023 Dr. Elizabeth Cai Work Phone: [facility] Work Phone: Start: 11-09-2023 End: 11-09-[address] Elizabeth Cai Work Phone: [facility] Work Phone: Start: 11-09-2023 End: 11-09-2023 Dr. Elizabeth Cai Work Phone: [facility] Work Phone: Start: 11-09-2023 Non-patient / Non-visit Dr. Dolores Cai Work Phone: [facility] Start: 11-09-2023 Dr. Elizabeth Cai Work Phone: [facility] Start: 11-08-2023 End: 11-09-2023 Evaluation and management of inpatient Dr. Elizabeth Cai Work Phone: -Progressive Care Unit Work Phone: Start: 11-08-2023 End: 11-09-[address] Elizabeth Cai Work Phone: Work Phone: Start: 11-08-2023 End: 11-09-2023 Dr. Elizabeth Cai Work Phone: -Progressive Care Unit Work Phone: Start: 10-31-2023 Non-patient / Non-visit Dr. Dolores Cai Work Phone: [facility] Start: 10-31-2023 End: 10-31-2023 Admission to same day surgery center Dr. Elizabeth Cai Work Phone: -[employer]Special [employer] Work Phone: Start: 10-31-2023 End: 10-31-2023 Dr. Elizabeth Cai Work Phone: -[employer]Special [employer] Work Phone: Start: 10-24-2023 End: 10-24-[address] Elizabeth Cai Work Phone: Work Phone: Start: 10-24-2023 End: 10-24-[address] Elizabeth Cai Work Phone: [facility] Work Phone: Start: 10-24-2023 End: 10-24-2023 Dr. Elizabeth Cai Work Phone: [facility] Work Phone: Start: 10-19-2023 End: 10-19-[address] Elizabeth Cai Work Phone: [facility] Work Phone: Start: 10-19-2023 End: 10-19-2023 Dr. Elizabeth Cai Work Phone: [facility] Work Phone: Start: 09-02-2023 End: 09-02-[address] Elizabeth Cai Work Phone: [facility] Rad[facility] Start: 09-02-2023 End: 09-02-[address] Elizabeth Cai Work Phone: [facility] Work Phone: Start: 08-05-2023 End: 08-05-[address] Elizabeth Cai Work Phone: [facility] Work Phone: Start: 07-18-2023 End: 07-18-[address] Elizabeth Cai Work Phone: Work Phone: Start: 07-18-2023 End: 07-18-[address] Elizabeth Cai Work Phone: [facility] Work Phone: Start: 07-15-2023 End: 07-15-[address] Elizabeth Cai Work Phone: [facility] Work Phone: Start: 06-23-2023 End: 06-23-[address] Elizabeth Cai Work Phone: [facility] Work Phone: Start: 06-14-2023 End: 06-14-2023 Emergency department patient visit Dr. Elizabeth Cai [facility]: Start: 11-03-2022 End: 11-03-[address] Rod Ochoa Work Phone: Work Phone: Start: 11-03-2022 End: 11-03-[address] Rod Ochoa Work Phone: -Laboratory, Pavilion Start: 11-01-2022 End: 11-01-[address] Rod Ochoa Work Phone: [facility] Start: 10-07-2022 End: 10-07-[address] Rod Ochoa Work Phone: Work Phone: Start: 10-07-2022 End: 10-07-[address] Rod Ochoa Work Phone: [facility] Start: 09-20-2022 End: 09-20-[address] Rod Ochoa Work Phone: [facility] Start: 08-16-2022 Non-patient / Non-visit Dr. Paul Ochoa Work Phone: [facility] Inpatient Physicians Start: 08-15-2022 Non-patient / Non-visit Dr. Paul Ochoa Work Phone: [facility] Inpatient Physicians Start: 08-14-2022 Non-patient / Non-visit Dr. Paul Ochoa Work Phone: [facility] In[facility] Phys[facility] Start: 08-14-2022 End: 08-16-2022 Evaluation and management of inpatient [facility]. Rod [facility]cho[facility] Start: 08-02-2022 End: 08-02-2022 Emergency department patient visit -Emergency Department Start: 07-25-2022 End: 07-26-2022 [facility] Start: 05-19-2022 End: 05-19-[address] Rod Ochoa Work Phone: Work Phone: Start: 05-19-2022 End: 05-19-[address] [facility] Start: 03-09-2022 End: 03-09-2022 Emergency department patient visit Dr. Rod [facility]choa [facility] Start: 03-02-2022 End: 03-02-[address] Rod [facility]cho[facility] Start: 02-25-2022 End: 02-25-[address] Rod Ochoa Work Phone: [facility] Start: 02-21-2022 End: 02-21-2022 [facility] Start: 01-29-2022 End: 01-29-2022 Patient encounter procedure [facility] Start: 11-11-2021 End: 11-11-2021 Patient encounter procedure [facility] Office 3rd Flr Procedures Date Procedure Procedure Detail Performing Clinician Start: 04-16-[address] Ja Cai MD Work Phone: Start: 04-16-2025 Urnls dip stick/tabl et reagent auto microscopy Dr. Elizabeth Cai MD Work Phone: Start: 03-28-[address] Ja Cai MD Work Phone: Start: 03-28-2025 Urnls dip stick/tabl et reagent auto microscopy Dr. Elizabeth Cai MD Work Phone: Start: 01-03-2024 CT of head without contrast Dr. Elizabeth Cai Work Phone: Start: 01-02-2024 Pelvis X-ray Dr. Gregorio Cai Work Phone: Start: 01-02-2024 Plain X-ray of clavicle Dr. Elizabeth Cai Work Phone: Start: 01-02-2024 Pelvis X-ray Dr. Gregorio Cai Work Phone: Start: 01-02-2024 Plain X-ray of femur Dr Angelique Cai Work Phone: Start: 01-02-2024 CT of head without contrast Dr. Elizabeth Cai Work Phone: Start: 12-13-2023 Measurement of occul t blood in stool specimen using immunoassay Dr. Elizabeth Cai Work Phone: Start: 12-01-[address] Ja Cai Work Phone: Start: 11-27-2023 Plain x-ray of pelvi s and lower extremity Dr. Elizabeth Cai Work Phone: Start: 11-27-2023 Plain X-ray of shoulder Dr. Elizabeth Cai Work Phone: Start: 11-27-2023 CT of pelvis without contrast Dr. Elizabeth Cai Work Phone: Start: 11-27-2023 CT cervical spine wi thout contrast Dr. Elizabeth Cai Work Phone: Start: 11-27-2023 CT of head without contrast Dr. Elizabeth Cai Work Phone: Start: 11-09-2023 Plain chest X-ray Dr. Sebastian Cai Work Phone: Start: 09-02-2023 Plain chest X-ray Dr. Sebastian Cai Work Phone: Start: 08-05-2023 Plain x-ray of wrist Dr Angelique Cai Work Phone: Start: 07-18-[address] Ja Cai Work Phone: Start: 07-15-2023 Plain x-ray of wrist Dr Angelique Cai Work Phone: Start: 06-23-2023 Plain x-ray of wrist Dr Angelique Cai Work Phone: Start: 06-14-2023 Plain x-ray of wrist Dr Angelique Cai Work Phone: Start: 08-14-2022 CT of head without contrast Dr. Rod Ochoa Work Phone: Start: 08-02-2022 CT of head without contrast Start: 07-25-2022 CT cervical spine wi thout contrast Start: 07-25-2022 CT of head without contrast Start: 03-09-2022 CT of head without contrast Dr. Rod Ochoa Work Phone: Start: 03-09-2022 Plain x-ray of wrist Dr Angelique Ochoa Work Phone: Start: 02-21-2022 Plain x-ray of pelvi s and lower extremity Plan of Treatment Date Care Activity Detail Author Start: 06-03-2025 Thyroid stimulating hormone measurement Start: 02-03-2024 Blood chemistry Start: 01-27-2024 Blood chemistry Start: 01-20-2024 Blood chemistry Start: 01-13-2024 Blood chemistry Start: 01-06-2024 Blood chemistry Start: 01-03-2024 [facility] Start: 01-02-2024 Wound care [facility] Start: 01-02-2024 [facility] Start: 12-23-2023 Recommendation to co ntinue with treatment Start: 12-16-2023 Following clinical p athway protocol Start: 12-16-2023 Speech therapy management Start: 12-16-2023 Developing a treatment plan Start: 12-16-2023 Development of care plan Start: 12-15-2023 Speech therapy assessment Start: 12-15-2023 Admission procedure [facility] Start: 12-15-2023 Measuring intake and output Start: 12-15-2023 Patient referral to dietitian Start: 12-15-2023 Referral to occupati onal therapist Start: 12-15-2023 Referral to service [facility] Start: 12-15-2023 Verification routine [facility] Start: 12-15-2023 Vital signs measurements Start: 12-15-2023 End: 12-15-2023 Start: 12-15-2023 Patient discharge [facility] Start: 12-15-2023 Following clinical p athway protocol Start: 12-06-2023 [facility] Start: 11-30-2023 [facility] Start: 11-30-2023 Introduction of urin javier catheter Start: 11-29-2023 Following clinical p athway protocol Start: 11-29-2023 Recommendation to co parishue with treatment Start: 11-29-2023 Referral to service [facility] Start: 11-29-2023 Urinary bladder training Start: 11-29-2023 Admission procedure [facility] Start: 11-29-2023 Patient referral to dietitian Start: 11-29-2023 Referral to occupati onal therapist Start: 11-29-2023 Vital signs measurements Start: 11-29-2023 End: 11-29-2023 Start: 11-29-2023 Patient discharge [facility] Start: 11-29-2023 Removal of urinary catheter Start: 11-29-2023 Speech therapy assessment Start: 11-28-2023 [facility] Start: 11-28-2023 Inhalation therapy procedure Start: 11-27-2023 Application of inter mittent pneumatic compression device Start: 11-27-2023 Following clinical p athway protocol Start: 11-27-2023 Assessment of risk o f venous thromboembolism Start: 11-27-2023 Consultation [facility] Start: 11-27-2023 Insertion of cathete r into peripheral vein Start: 11-27-2023 Providing care accor ding to standard Start: 11-27-2023 Referral to glass toughening operator Start: 11-27-2023 Referral to occupati onal therapist Start: 11-27-2023 Referral to service [facility] Start: 11-27-2023 [facility] Start: 11-27-2023 Verification routine [facility] Start: 11-27-2023 Admission procedure [facility] Start: 11-27-2023 Hospital admission, emergency, from emergency room, medical nature Start: 11-09-2023 Patient discharge [facility] Start: 11-08-2023 Following clinical p athway protocol Start: 11-08-2023 End: 11-08-2023 Admission procedure Start: 11-08-2023 Elevation of head of bed Start: 11-08-2023 Taking patient vital signs Start: 11-08-2023 Wound care [facility] Start: 11-08-2023 End: 11-08-2023 Start: 10-31-2023 Patient discharge [facility] Start: 06-14-2023 [facility] Start: 06-14-2023 Application short ar m splint forearm-hand static APPLY FOREARM SPLINT Start: 08-16-2022 Patient discharge [facility] Start: 08-14-2022 Following clinical p athway protocol Start: 08-14-2022 Ambulation without limitation Start: 08-14-2022 Assessment of risk o f venous thromboembolism Start: 08-14-2022 Insertion of cathete r into peripheral vein Start: 08-14-2022 Providing care accor ding to standard Start: 08-14-2022 Referral to occupati onal therapist Start: 08-14-2022 Referral to service [facility] Start: 08-14-2022 [facility] Start: 08-14-2022 Admission procedure [facility] Anion gap measurement [facility] Anion gap measurement [facility] Anion gap measurement [facility] Anion gap measurement [facility] Anion gap measurement [facility] Ankle brachial press ure index BUN/Creatinine ratio BUN/Creatinine ratio BUN/Creatinine ratio BUN/Creatinine ratio BUN/Creatinine ratio Calcium [Mass/volume ] in Serum or Plasma Calcium [Mass/volume ] in Serum or Plasma Calcium [Mass/volume ] in Serum or Plasma Calcium [Mass/volume ] in Serum or Plasma Calcium [Mass/volume ] in Serum or Plasma Carbon dioxide, tota l [Moles/volume] in Serum or Plasma Carbon dioxide, tota l [Moles/volume] in Serum or Plasma Carbon dioxide, tota l [Moles/volume] in Serum or Plasma Carbon dioxide, tota l [Moles/volume] in Serum or Plasma Carbon dioxide, tota l [Moles/volume] in Serum or Plasma CBC W Auto Different ial panel - Blood Chloride [Moles/volu me] in Serum or Plasma Chloride [Moles/volu me] in Serum or Plasma Chloride [Moles/volu me] in Serum or Plasma Chloride [Moles/volu me] in Serum or Plasma Chloride [Moles/volu me] in Serum or Plasma Comprehensive metabo lic 2000 panel - Serum or Plasma Creatinine [Moles/vo lume] in Serum or Plasma Creatinine [Moles/vo lume] in Serum or Plasma Creatinine [Moles/vo lume] in Serum or Plasma Creatinine [Moles/vo lume] in Serum or Plasma Creatinine [Moles/vo lume] in Serum or Plasma DXA Bone [Mass/Area] Bone density Erythrocyte mean cor puscular volume determination Erythrocyte mean cor puscular volume determination Erythrocyte mean cor puscular volume determination Erythrocyte mean cor puscular volume determination Erythrocyte mean cor puscular volume determination Glucose [Mass/volume ] in Serum or Plasma Glucose [Mass/volume ] in Serum or Plasma Glucose [Mass/volume ] in Serum or Plasma Glucose [Mass/volume ] in Serum or Plasma Glucose [Mass/volume ] in Serum or Plasma Hematocrit [Volume F raction] of Blood Hematocrit [Volume F raction] of Blood Hematocrit [Volume F raction] of Blood Hematocrit [Volume F raction] of Blood Hematocrit [Volume F raction] of Blood Hemoglobin [Mass/vol ume] in Blood Hemoglobin [Mass/vol ume] in Blood Hemoglobin [Mass/vol ume] in Blood Hemoglobin [Mass/vol ume] in Blood Hemoglobin [Mass/vol ume] in Blood Influenza A and B vi mony antigen assay Leukocytes [#/volume ] in Blood Leukocytes [#/volume ] in Blood Leukocytes [#/volume ] in Blood Leukocytes [#/volume ] in Blood Leukocytes [#/volume ] in Blood Mean corpuscular hem oglobin concentration determination Mean corpuscular hem oglobin concentration determination Mean corpuscular hem oglobin concentration determination Mean corpuscular hem oglobin concentration determination Mean corpuscular hem oglobin concentration determination Mean corpuscular hem oglobin determination Mean corpuscular hem oglobin determination Mean corpuscular hem oglobin determination Mean corpuscular hem oglobin determination Mean corpuscular hem oglobin determination Measurement of renal function Measurement of renal function Measurement of renal function Measurement of renal function Measurement of renal function Neutrophil count [facility] Neutrophil count [facility] Neutrophil count [facility] Neutrophil count [facility] Neutrophil count [facility] Neutrophil percent differential count Neutrophil percent differential count Neutrophil percent differential count Neutrophil percent differential count Neutrophil percent differential count Patient Education [facility] Work Phone: Patient referral [facility] Work Phone: Platelets [#/volume] in Blood Platelets [#/volume] in Blood Platelets [#/volume] in Blood Platelets [#/volume] in Blood Platelets [#/volume] in Blood Potassium [Moles/vol ume] in Serum or Plasma Potassium [Moles/vol ume] in Serum or Plasma Potassium [Moles/vol ume] in Serum or Plasma Potassium [Moles/vol ume] in Serum or Plasma Potassium [Moles/vol ume] in Serum or Plasma Red blood cell count Red blood cell count Red blood cell count Red blood cell count Red blood cell count Red cell distributio n width determination Red cell distributio n width determination Red cell distributio n width determination Red cell distributio n width determination Red cell distributio n width determination SARS-CoV-2 [facility] Sodium [Moles/volume ] in Serum or Plasma Sodium [Moles/volume ] in Serum or Plasma Sodium [Moles/volume ] in Serum or Plasma Sodium [Moles/volume ] in Serum or Plasma Sodium [Moles/volume ] in Serum or Plasma Urea nitrogen [Mass/ volume] in Serum or Plasma Urea nitrogen [Mass/ volume] in Serum or Plasma Urea nitrogen [Mass/ volume] in Serum or Plasma Urea nitrogen [Mass/ volume] in Serum or Plasma Urea nitrogen [Mass/ volume] in Serum or Plasma Urinalysis complete panel - Urine General acute hospital Immunizations Immunization Date Immunization Notes Care Provider [facility] 07-27-2024 Seasonal trivalent influenza vaccine, adjuvanted, preservative free Dr. Elizabeth Cai MD Work Phone: 01-06-2024 Pneumococcal Vaccine PCV20 (Prevnar 20) Dr. Elizabeth Cai Work Phone: 07-18-2023 influenza, injectabl e, quadrivalent, preservative free Dr. Elizabeth Cai Work Phone: 08-27-2021 Covid (Moderna) Dr. Nain Cai Work Phone: 05-26-2021 influenza, injectabl e, quadrivalent, preservative free Dr. Elizabeth Cai Work Phone: 11-07-2020 Covid (Moderna) [facility] 10-10-2020 Covid (Moderna) [facility] 06-13-2020 influenza, injectabl e, quadrivalent, preservative free Dr. Elizabeth Cai Work Phone: 05-28-[address] Elizabeth Cai Work Phone: 04-10-2019 influenza, injectabl e, quadrivalent, preservative free Dr. Elizabeth Cai Work Phone: 07-07-[address] Elizabeth Cai Work Phone: 05-11-2018 influenza, injectabl e, quadrivalent, preservative free Dr. Elizabeth Cai Work Phone: 05-04-2017 influenza, injectabl e, quadrivalent, preservative free Dr. Elizabeth Cai Work Phone: 09-06-2014 Influenza virus vaccine [facility] 09-06-2014 Pneumococcal Vaccine [facility] Work Phone: 09-06-2014 pneumococcal vaccine , unspecified formulation [facility] 09-09-2009 novel [id number], preservative-free, injectable Dr. Elizabeth Cai Work Phone: Payers Date Payer Category Payer Self-pay [id number] 2015 Private Health Insurance [id number] 2001 Medicare [id number] Unknown [id number] 2.16.8 [id number] Unknown [id number] 2.16.8 40.1.542634.3.579.2.462 Unknown [id number] 2.16.8 40.1.853889.3.579.2.462 Unknown [id number] 2.16.8 40.1.146116.3.579.2.462 Unknown [id number] 2.16.8 40.1.159512.3.579.2.462 Unknown [id number] 2.16.8 40.1.332433.3.579.2.462 Unknown [id number] 2.16.8 40.1.076146.3.579.2.462 Unknown [id number] 2.16.8 40.1.432090.3.579.2.462 Unknown [id number] 2.16.8 40.1.545443.3.579.2.462 Unknown [id number] 2.16.8 40.1.037557.3.579.2.462 Unknown [id number] 2.16.8 40.1.548260.3.579.2.462 Unknown [id number] 2.16.8 40.1.595367.3.579.2.462 Unknown [id number] 2.16.8 40.1.176855.3.579.2.462 Unknown [id number] 2.16.8 40.1.641943.3.579.2.462 Unknown [id number] 2.16.8 40.1.205746.3.579.2.462 Unknown [id number] 2.16.8 40.1.714800.3.579.2.462 Unknown [id number] 2.16.8 40.1.394703.3.579.2.462 Unknown [id number] 2.16.8 40.1.796992.3.579.2.462 Unknown [id number] 2.16.8 40.1.108578.3.579.2.462 Unknown [id number] 2.16.8 40.1.318361.3.579.2.462 Unknown [id number] 2.16.8 40.1.285823.3.579.2.462 Unknown [id number] 2.16.8 40.1.899476.3.579.2.462 Unknown [id number] 2.16.8 40.1.992750.3.579.2.462 Unknown [id number] 2.16.8 40.1.493485.3.579.2.462 Social History Date Type Detail Facility Start: 08-17-2021 End: 01-03-2024 Tobacco smoking status COIS Unknown if ever smoked Start: 01-20-2021 None [facility] Start: 01-20-2021 Alone [facility] Start: 01-20-2021 Non-smoker [facility] Start: 1935 Sex Assigned At Female W [facility] Start: 01-03-2024 Tobacco smoking stat us NHIS Never smoked tobacco (finding) Start: 11-17-2024 End: 12-03-2024 Sex Female (finding) Sex Female [facility] Medical Equipment Procedure Code Equipment Code Equipment Origin al Text Equipment Identifier Dates [facility] XL SR FDA Star t: 06-23-2009 [facility] XL SR FDA Star t: 06-23-2009 [facility] XL SR FDA Star t: 06-23-2009 [facility] XL SR FDA Star t: 06-23-2009 [facility] XL SR FDA Star t: 06-23-2009 [facility] XL SR FDA Star t: 06-23-2009 [facility] XL SR FDA Star t: 06-23-2009 [facility] XL SR FDA Star t: 06-23-2009 [facility] XL SR FDA Star t: 06-23-2009 [facility] XL SR FDA Star t: 06-23-2009 [facility] XL SR FDA Star t: 06-23-2009 [facility] XL SR FDA Star t: 06-23-2009 [facility] XL SR FDA Star t: 06-23-2009 [facility] XL SR FDA Star t: 06-23-2009 [facility] XL SR FDA Star t: 06-23-2009 [facility] XL SR FDA Star t: 06-23-2009 [facility] XL SR FDA Star t: 06-23-2009 [facility] XL SR FDA Star t: 06-23-2009 [facility] XL SR FDA Star t: 06-23-2009 [facility] XL SR FDA Star t: 06-23-2009 [facility] XL SR FDA Star t: 06-23-2009 [facility] XL SR FDA Star t: 06-23-2009 [facility] XL SR FDA Star t: 06-23-2009 [facility] XL SR FDA Star t: 06-23-2009 ([id number]) ([id number] FDA Start: 11-08-2023 [facility] XL SR FDA Star t: 06-23-2009 [facility] XL SR FDA Star t: 06-23-2009 [facility] XL SR FDA Star t: 06-23-2009 [facility] XL SR FDA Star t: 06-23-2009 [facility] XL SR FDA Star t: 06-23-2009 [facility] XL SR FDA Star t: 06-23-2009 FDA Start: 06-23-2009 FDA Start: 06-23-2009 FDA Start: 06-23-2009 FDA Start: 06-23-2009 FDA Start: 06-23-2009 FDA Start: 06-23-2009 [facility] XL SR FDA Star t: 06-23-2009 [facility] XL SR FDA Star t: 06-23-2009 [facility] XL SR FDA Star t: 06-23-2009 [facility] XL SR FDA Star t: 06-23-2009 [facility] XL SR FDA Star t: 06-23-2009 [facility] XL SR FDA Star t: 06-23-2009 [facility] XL SR FDA Star t: 06-23-2009 [facility] XL SR FDA Star t: 06-23-2009 [facility] XL SR FDA Star t: 06-23-2009 [facility] XL SR FDA Star t: 06-23-2009 [facility] XL SR FDA Star t: 06-23-2009 [facility] XL SR FDA Star t: 06-23-2009 [facility] XL SR FDA Star t: 06-23-2009 [facility] XL SR FDA Star t: 06-23-2009 [facility] XL SR FDA Star t: 06-23-2009 [facility] XL SR FDA Star t: 06-23-2009 [facility] XL SR FDA Star t: 06-23-2009 [facility] XL SR FDA Star t: 06-23-2009 Goals Date Patient Goal Desired Activity /State Functional Status Date Assessment Result Facility 01-09-2024 Functional status Ambulates [facility] Work Phone: 01-05-2024 Functional status Chair [facility] Work Phone: 01-03-2024 Functional status Chair [facility] Work Phone: 01-01-2024 Functional status Fair [facility] Work Phone: 12-15-2023 Functional status With Assist of 2 [facility] Work Phone: 12-13-2023 Functional status Bedrest [facility] Work Phone: 11-29-2023 Functional status Chair [facility] Work Phone: 11-09-2023 Functional status Bedrest [facility] Work Phone: 08-16-2022 Functional status Ambulates [facility] Work Phone: Mental Status Date Assessment Result Facility 01-09-2024 Cognitive function Voice/Name [facility] Work Phone: 01-05-2024 Cognitive function Voice/Name [facility] Work Phone: 01-03-2024 Cognitive function Appropriate;Cooperativ e Work Phone: 01-03-2024 Cognitive function Voice/Name [facility] Work Phone: 12-15-2023 Cognitive function Voice/Name [facility] Work Phone: 11-29-2023 Cognitive function Voice/Name [facility] Work Phone: 11-29-2023 Cognitive function Person;Place [facility] Work Phone: 11-09-2023 Cognitive function Voice/Name [facility] Work Phone: 08-16-2022 Cognitive function Appropriate;Roel nevarez Work Phone: 08-02-2022 Cognitive function Level Of Cons ciousness Awake;Alert;Appropriate;Follow s Commands Work Phone: Clinical Notes 11-08-2023 to 03-28-2025 Note Date & Type Note Facility 03-28-2025 Evaluation note Diagnosis Onset Date Resolution Dementia chronic March 28 8:29am Flu vaccine need acute Mayembe r 2024 11:01am History of UTI acute June 03, 2025 11:01am Anxiety and depression chronic Se ptember 2024 11:01am Dementia with agitation chronic S eptember 2024 11:01am Excoriation (skin-picking) disorder chronic Septembe r 2024 11:01am Hypertension chronic June 032024 11:01am [facility] Work Phone: 1(848) 783-895804-30-2025 Evaluation note* Diagnosis Onset Date Resolution Status Admit Date Anxiety and depression chronic Ap 2024 12:57pm Dementia chronic January 02 12:57pm Essential (primary) hypertension chr onic January 02, 2025 12:57pm Hypothyroidism chronic December 12:57pm Dementia chronic March 28 8:29am Work Phone: 1(917) 190-845704-10-2025 Evaluation note* Diagnosis Onset Date Resolution Status Admit Date History of permanent cardiac pacemaker placement chronic December 13, 2024 10:56am Sick sinus syndrome chronic December 13, 2024 10:56am Anxiety and depression chronic Ap 2024 12:57pm Dementia chronic January 02 12:57pm Essential (primary) hypertension chr onic January 02, 2025 12:57pm Hypothyroidism chronic December 12:57pm Dementia chronic March 28 8:29am Work Phone: 1(389) 475-389103-27-2025 Evaluation note* Diagnosis Onset Date Resolution Status Admit Date Atrial fibrillation acute November 29, 2024 11:47am Essential (primary) hypertension chr onic November 29, 2024 11:47am History of permanent cardiac pacemaker placement chronic November 29, 2024 11:47am Hyperlipidemia chronic November 11:47am Nonrheumatic mitral valve insufficiency chronic November 29, 2024 11:47am History of permanent cardiac pacemaker placement chronic December 13, 2024 10:56am Sick sinus syndrome chronic December 13, 2024 10:56am Anxiety and depression chronic Ap 2024 12:57pm Dementia chronic January 02 12:57pm Essential (primary) hypertension chr onic January 02, 2025 12:57pm Hypothyroidism chronic December 12:57pm [facility] Work Phone: 1(415) 590-422302-12-2025 Evaluation note* Diagnosis Onset Date Resolution Status Admit Date Cellulitis of left lower leg acute October 17, 2024 2:51pm Open wound of both lower extremities acute October 26, 2 025 12:23pm Open wound of both lower extremities acute November 07, 2024 10:32am Atrial fibrillation acute November 29, 2024 11:47am Essential (primary) hypertension chronic November 29, 2024 11:47am Hyperlipidemia chronic November 11:47am Nonrheumatic mitral valve insufficiency chronic November 29, 2024 11:47am History of permanent cardiac pacemaker placement inactive November 29, 2024 11:47am Work Phone: 1(555) 525-407002-12-2025 Evaluation note* Diagnosis Onset Date Resolution Status Admit Date Cellulitis of left lower leg acute October 17, 2024 2:51pm Open wound of both lower extremities acute October 26, 2 025 12:23pm Open wound of both lower extremities acute November 07, 2024 10:32am Atrial fibrillation acute November 29, 2024 11:47am Essential (primary) hypertension chronic November 29, 2024 11:47am History of permanent cardiac pacemaker placement chronic November 29, 2024 11:47am Hyperlipidemia chronic November 11:47am Nonrheumatic mitral valve insufficiency chronic November 29, 2024 11:47am History of permanent cardiac pacemaker placement chronic December 13, 2024 10:56am Sick sinus syndrome chronic December 13, 2024 10:56am Anxiety and depression chronic Ap 2024 12:57pm Dementia chronic January 02 12:57pm Essential (primary) hypertension chronic January 02, 2025 12:57pm Hypothyroidism chronic December 12:57pm Work Phone: 1(299) 424-248211-22-2024 Evaluation note* Diagnosis Onset Date Resolution Status Admit Date Anxiety and depression chronic No vember 2023 11:18am Dementia chronic July 27, 2024 11:18am Essential (primary) hypertension chronic July 27, 024 11:18am Flu vaccine need chronic July 27, 2024 11:18am Hypothyroidism chronic July 072023 11:18am Cellulitis of left lower leg acute October 17, 2024 2:51pm Open wound of both lower extremities acute October 26, 025 12:23pm Open wound of both lower extremities acute November 07, 2024 10:32am Work Phone: 1(893) 689-976704-30-2024 Discharge summary Author Feng Loomis January 03, 2024 4:14pm Note Date/Time January 03, 2024 4:0 9pm [facility] Medical Records Department [address] [place] [address] Emergency Department Summary 01/03/24 MR#: [id number] Acct: [id number] Name: MARISA SANTIAGO Rep #:[id number] : 1935 88 From: Feng Loomis DO PCP: Dr. Elizabeth Cai MD Status:R EG ER Location: ED HPI History of Present Illness Chief Complaint: Fall Narrative Narrative: 88-year-old female from the TCU status post hip fracture and apparently had a fall yesterday and hit her head. CT was done yesterday and repeated today and it does show that she has a small bleed documented as a small hemorrhagic cortical bleed. Patient states she is on Eliquis. She does have history of dementia but is alert and awake. She is oriented to the time and place as well as situation. She is with her caregiver from home who states she is at her baseline. Patient states that she feels otherwise well. She would not want anysurgical intervention should she need it for her intracranial hemorrhage. She also states she would not want to be transferred to a facility with neurosurgerybecause she could not have the surgery. [facility] Medical History Acquired hypothyroidism Allergies Anemia Anxiety and depression Arthritis Asthma Atrial fibrillation BRBPR (bright red blood per rectum) Cardiology follow-up encounter Carpal tunnel syndrome Chronic anticoagulation Closed head injury Complete heart block Concussion CVA (cerebral vascular accident) Delayed wound healing Dementia Distal radius fracture Edema leg Essential (primary) hypertension Fall Fall Flu vaccine need Fracture of metacarpal base, first, right hand, closed Fracture of right inferior pubic ramus Fracture of right superior pubic ramus GI bleed Goiter Hearing problem History of GI bleed History of IBS History of stress test Hyperlipidemia Hyperlipidemia Hypertension Hypothyroidism Hypothyroidism Iron deficiency anemia Malnutrition Microscopic colitis Microscopic colitis Mild intermittent asthma Non-smoker Nonrheumatic mitral valve insufficiency Open wound of left ring finger Osteoarthritis Pacemaker lead malfunction Parathyroid disorder Periorbital edema of left eye Persistent atrial fibrillation Personal history of colonic polyps Rheumatoid arthritis Right hemiparesis Sick sinus syndrome Stroke/cerebrovascular accident Thyroid storm Ulcer of left lower extremity with fat layer exposed Ulcer of right lower extremity with fat layer exposed Venous insufficiency Vertigo 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 Wears glasses Home Medications [id number] 0.4 mg-calcium 162 mg-iron 18 [id number] tablet 1 ea PO DAILY supplement 06/03/19 [History Last Taken 12/15/23] apixaban 2.5 mg tablet (Eliquis) 2.5 mg PO BID blood thinner #180 tabs 11/24/22 [Rx Last Taken 12/15/23] biotin 500 mcg capsule 1 mg PO DAILY supplement 03/25/23 [History Last Taken 12/15/23] donepezil 5 mg tablet 5 mg PO QHS memory #90 tabs 04/07/23 [Rx Last Taken 12/14/23] ferrous sulfate 325 mg (65 mg iron) tablet (FeroSul) See Rx Instructions .Route .COMPLEX supplement #90 TABLETS 06/27/23 [Rx Last Taken 12/15/23] escitalopram oxalate 5 mg tablet 5 mg PO DAILY anxiety #90 tabs 07/18/23 [Rx Last Taken 12/15/23] levothyroxine 112 mcg tablet 112 mcg PO DAILY thyroid 11/09/23 [History Last Taken 12/15/23] psyllium husk (aspartame) 3 gram oral powder packet (Daily Fiber (psyllium-aspartame)) 1 packet PO DAILY bowel mobility #0 ea 11/29/23 [Rx Last Taken 12/14/23] acetaminophen 500 mg tablet 1,000 mg (2 x 500 mg) PO 0900,1500,2000 pain 1-10 #1TAB 12/15/23 [Rx Last Taken Unknown] ascorbic acid (vitamin C) 1,000 mg tablet (Vitamin C) 1 g PO DAILY supplement #1TAB 12/15/23 [Rx Last Taken 12/15/23] bisacodyl 10 mg rectal suppository 10 mg [place] X1 PRN Constipation #1 ea 12/15/23 [Rx Last Taken 12/15/23] iron sucrose 100 mg iron/5 mL intravenous solution (Venofer) 200 mg (10 mL) IV DAILY Supplement #5 mL 12/15/23 [Rx Last Taken 12/15/23] lidocaine 5 % topical patch 1 patch topical 0700 pain #1 ea 12/15/23 [Rx Last Taken 12/15/23] lisinopril 2.5 mg tablet 2.5 mg PO QHS BP #1 TAB 12/15/23 [Rx Last Taken 12/15/23] magnesium hydroxide 400 mg/5 mL oral suspension 30 ml PO X1 PRN Constipation #30mL 12/15/23 [Rx Last Taken Unknown] pantoprazole 40 mg tablet,delayed release 40 mg PO DAILY Supplement #1 TAB 12/15/23 [Rx Last Taken 12/15/23] sennosides 8.6 mg-docusate sodium 50 mg tablet (Stool Softener-Stimulant Laxative) 1 tab PO BID PRN Constipation #1 TAB 12/15/23 [Rx Last Taken Unknown] tramadol 50 mg tablet 25 mg (1/2 x 50 mg) PO Q6H pain 7 days #14 tabs 12/15/23 [Rx Last Taken 12/15/23] Allergy/AdvReac Type Severity Reaction Status Date / Time Environmental Allergies: Allergy Mild sneezing Verified 01/03/24 15:16 Uncoded latex AdvReac Itching Verified 01/03/24 15:16 sulfamethoxazole AdvReac Nausea Verified 01/03/24 15:16 [From Bactrim] trimethoprim [From Bactrim] AdvReac Nausea Verified 01/03/24 15:16 Family History Father CAD (coronary artery disease) Brother Cancer Leukemia Brother Epilepsy Mother Colon cancer Other CVA (cerebral vascular accident) Diabetes Surgical History H/O thyroidectomy H/O thyroidectomy History of knee replacement History of permanent cardiac pacemaker placement History of right hip replacement Status post placement of cardiac pacemaker Social History household members: none and other details: she has a fire assistant who comes every day housing: house number of children: 3 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 Smoking Status: Never smoker alcohol intake: never substance use type: does not use caffeine: Yes Type: tea Number of servings: 1 what type of physical activity do you participate in: other details: JoinMe@ ED Constitutional Constitutional ED: Denies chills, fever(s) or sweats Eyes Eyes: Denies blurry vision or change in vision ENT ENT ED: Denies ear pain or sore throat Cardiovascular Cardiovascular: Denies chest pain, palpitations or racing heartbeat Respiratory/Chest Respiratory/Chest: Denies cough, dyspnea or sputum Gastrointestinal Gastrointestinal: Denies abdominal pain, constipation, diarrhea, nausea or vomiting Genitourinary Genitourinary ED: Denies dysuria, hematuria or urinary frequency Integumentary Denies abscess, Abrasions or rash Neurologic Neurologic: Denies headache(s), paresthesias or weakness Psychiatric Psychiatric: Denies anxiety, depression, suicidal ideation or suicidal thoughts Endocrine Endocrinology: Denies polydipsia or polyuria EXAM Physical Exam Const Vital Signs: 01/03/24 15:11 01/03/24 15:22 Temperature 98.2 F Temperature Source Temporal Pulse Rate 70 Respiratory Rate 12 Respiratory Effort Normal Respiratory Depth Normal Respiratory Pattern Normal Blood Pressure 151/69 H Blood Pressure Mean 96 Pulse Ox 100 100 Oxygen Delivery Method Room Air Room Air Positive well nourished General Appearance ED: NAD Eyes PERRL and EOMs intact bilaterally Chest Wall inspection of chest normal Resp normal respiratory effort Cardio regular rhythm Rate: regular rate Neuro oriented x3, CN's II-XII intact bilaterally, no focal motor deficits and no sensory deficits noted Hill Coma Scale: document GCS findings Spontaneous Obeys Commands Oriented 15 Sensorium / Orientation: alert Psych mental status grossly normal Skin no rashes or lesions noted MDM MDM MDM Narrative Medical decision making narrative: 88-year-old female presenting from the TCU with a hemorrhagic cortical contusionby CT. She reports that she would not want to be transferred to a trauma centeror a neurosurgical specialty. She does not want surgery should this worsen. I had a long discussion with her caregiver at the bedside as well as the patient. The patient called her son and we had a three-way conversation on speaker phone and after discussing this with her son her son felt it was up to her and she does have the capacity to make this decision. She states she does not want to go to any other facility and if this should worsen she would just want to be made comfortable. She acknowledges the risk that this could get worse that she is on Eliquis. Discussed this at length with her son as well. Will discuss this with Dr. Ochoa and she will be transferred back to TCU. Impression: 1. Hemorrhagic cortical contusion Lab Data Attestation: I reviewed the patient's lab results. Discharge Plan Triage Chief Complaint: Fall ED Provider: Feng Loomis Dx/Rx/DC Orders Prescriptions: No Action escitalopram oxalate 5 mg tablet 5 mg PO DAILY Qty: 90 1RF [id number]-Uu-dofifcf-lutein 1 EACH tablet 1 ea PO DAILY Patient Comments: vitamin biotin 500 mcg capsule 1 mg PO DAILY acetaminophen 500 mg Tablet 1,000 mg PO 0900,1500,2000 Qty: 1 0RF magnesium hydroxide 400 mg/5 mL Suspension 30 ml PO X1 PRN (Reason: Constipation) Qty: 30 0RF bisacodyl 10 mg Suppository 10 mg [place] X1 PRN (Reason: Constipation) Qty: 1 0RF pantoprazole 40 mg Tablet,Delayed Release (Dr/Ec) 40 mg PO DAILY Qty: 1 0RF lidocaine 5 % Adhesive Patch,Medicated 1 patch topical 0700 Qty: 1 0RF Protocol: *Topical Application Instructions APPLICATION INSTRUCTIONS: APPLY TO THE DISTAL END OF THE R CLAVICLE Venofer 100 mg iron/5 mL Solution 200 mg IV DAILY Qty: 5 0RF lisinopril 2.5 mg Tablet 2.5 mg PO QHS Qty: 1 0RF sennosides-docusate sodium [Stool Softener-Stimulant Laxat] 8.6-50 mg Tablet 1 tab PO BID PRN (Reason: Constipation) Qty: 1 0RF tramadol 50 mg Tablet 25 mg PO Q6H 7 Days Qty: 14 0RF ascorbic acid (vitamin C) [Vitamin C] 1,000 mg tablet 1 g PO DAILY Qty: 1 0RF Rx Instructions: Give this once a day when Ferrous sulfate given. levothyroxine 112 mcg tablet 112 mcg PO DAILY Daily Fiber (psyllium-aspart) 3 gram Powder In Packet 1 packet PO DAILY Qty: 0 0RF Eliquis 2.5 mg tablet 2.5 mg PO BID Qty: 180 3RF Hold Instructions: Resume on 11/17/23. donepezil 5 mg tablet 5 mg PO QHS Qty: 90 3RF ferrous sulfate [FeroSul] 325 mg (65 mg iron) tablet See Rx Instructions .ROUTE .COMPLEX Qty: 90 3RF Hold Instructions: Resume on 12/19/23. Dose Instruction: take 1 tablet by mouth once daily Rx Instructions: take 1 tablet by mouth once daily Primary Care Provider: Elizabeth Cai Referrals: Elizabeth Cai MD [Primary Care Provider] - What to do if you have Problems For any increased pain, shortness of breath, bleeding, nausea or vomiting, chestpain, or any unexpected problems, contact your Primary Care Provider. Call [facility] ([phone]) or report to the closest Emergency Room. Call 911 if necessary. 01/03/24 1614 <Electronically signed by Feng Loomis DO> Cosigner Signature (if applicable): CC: Dr. Elizabeth Cai MD ~ Signed Work Phone: [phone] 186-325204-11-2024 Discharge summary Author Daniella Travis December 15, 2023 10:56am Note Date/Time December 15, 2023 10: 43am [facility] Medical Records Department [address] [place] [address] Transfer to [facility] MR#: [id number] Acct: [id number] Name: MARISA SANTIAGO Rep #:[id number] : 1935 88 From: Daniella Travis DO PCP: Dr. Elizabeth Cai MD Status:A DM IN Certification of patient admission REQUIRED AT TIME OF ADMISSION. I CERTIFY THAT POST-HOSPITAL ECF SERVICES ARE REQUIRED TO BE GIVEN ON AN IN-PATIENT BASIS BECAUSE OF THE ABOVE NAMED PATIENT'S NEED FOR SENIOR LIVING CARE ON A CONTINUING BASIS FOR THE CONDITION(S) FOR WHICH HE/SHE WAS RECEIVING IN-PATIENT HOSPITAL SERVICES PRIOR TO HIS/HER TRANSFER TO THE ECF. 12/15/23 1056<Electronically signed by Daniella Travis DO> Diet Diet Order/Speech Therapy: 11/29/23 16:43 Diet: Regular - General Routine Orders/Code Status Enema Type: Fleetz Enema Frequency: Daily PRN Suppository Type: Dulcolax 10mg Suppository Frequency: Daily PRN O2 Liters per Minute: 2 L O2 Frequency: PRN Keep PO Greater than or Equal to (%): 90 Routine Lab Work: - (HH weekly X 2 ) Code Status: DNRCC Wound(s) Rt mandible: Wound Type: Abrasion Distal Rt Cheek: Wound Type: Abrasion Bridge of Nose: Wound Type: Abrasion RFA: Wound Type: Abrasion RLE: Wound Type: Abrasion Therapies Weight Bearing: Weight bearing as tolerated Physical Therapy: Eval and Treat Occupational Therapy: Eval and Treat Speech Therapy: Eval and Treat Problem/Diagnosis (1) Physical debility: Status: Acute Code(s): R53.81 - Other malaise Plan: Continue PT/OT. Comment: Due to a fall resulting in pelvic fractures and a right clavicle fracture. (2) Fall: Status: Inactive Code(s): W19.XXXA - Unspecified fall, initial encounter (3) Acute pain due to trauma: Status: Acute Code(s): G89.11 - Acute pain due to trauma (4) Right clavicle fracture: Status: Deleted Code(s): S42.001A - Fracture of unspecified part of right clavicle, initial encounter forclosed fracture (5) Fracture of right superior pubic ramus: Status: Acute Code(s): S32.511A - Fracture of superior rim of right pubis, initial encounter for closedfracture (6) Fracture of right inferior pubic ramus: Status: Acute Code(s): S32.591A - Other specified fracture of right pubis, initial encounter for closedfracture (7) Heme positive stool: Status: Acute Code(s): R19.5 - Other fecal abnormalities Plan: Continue Protonix. HGB has been stable. Eliquis for AF was restarted on 12/13/23for AF (8) Anemia: Status: Chronic Code(s): D64.9 - Anemia, unspecified (9) Right thigh pain: Status: Acute Code(s): M79.651 - Pain in right thigh Comment: Venous US was negative for DVT. on 12/13/23. Eliquis has been restarted for AF and for DVT prophylaxis. We held the Eliquis for 8 days after starting Protonixfor heme + stool. Plan 1. Transfer to SNF/TCU for additional therapy prior to returning home with fire assistant. 2. Continue Tramadol for pain. Decrease the dose to 25 mg Q 6 H. We scheduledit because she does not remember to ask for it when she has pain. 3. Check an weekly x 2 in light of persistent heme + stool (even on Protonix) and restarting Eliquis. HGB is stable at 10.5. 4. In Oct the ferritin was 8. It has not been rechecked but, she has been persistently anemic. Will order 3 doses of Iron Sucrose. Allergies/Procedures Done in Hospital Allergies Environmental Allergies: Uncoded Allergy (Mild, Verified 11/27/23 16:57) sneezing latex Adverse Reaction (Verified 11/27/23 16:57) Itching sulfamethoxazole [From Bactrim] Adverse Reaction (Verified 11/27/23 16:57) Nausea trimethoprim [From Bactrim] Adverse Reaction (Verified 11/27/23 16:57) Nausea Procedures: None Type of Care/Length of Stay Estimated LOS: Convalescent Care Less Than 30 days Type of Care Needed: Skilled Rehab Potential: Fair Prognosis: Fair Additional Orders/Day of Discharge H&P will serve as current which was dated: 11/30/23 Day of Discharge: 12/15/23 Dietary and Speech Recommendations Dietitian Recommendations/Changes: Continue Regular diet as ordered. Consult RD as needed if nutrition/dietary issues arise. Follow Up Care Please follow up with your Primary Care Physician in: Following DC from TCU. Please Follow Up With: Miguel Angel Arreola MD When: in 1month. Discharge Plan Admission Admit Date/Time: 11/29/23 15:31 Primary Reason for Your Visit: Debility due to fall with pelvic fracture/clavicle fx Attending Provider: Daniella Travis Primary Care Provider: Elizabeth Cai Discharge Orders/Prescriptions Prescriptions: New acetaminophen 500 mg Tablet 1,000 mg PO 0900,1500,2000 Qty: 1 0RF magnesium hydroxide 400 mg/5 mL Suspension 30 ml PO X1 PRN (Reason: Constipation) Qty: 30 0RF bisacodyl 10 mg Suppository 10 mg KY X1 PRN (Reason: Constipation) Qty: 1 0RF pantoprazole 40 mg Tablet,Delayed Release (Dr/Ec) 40 mg PO DAILY Qty: 1 0RF lidocaine 5 % Adhesive Patch,Medicated 1 patch topical 0700 Qty: 1 0RF Protocol: *Topical Application Instructions APPLICATION INSTRUCTIONS: APPLY TO THE DISTAL END OF THE R CLAVICLE Venofer 100 mg iron/5 mL Solution 200 mg IV DAILY Qty: 5 0RF lisinopril 2.5 mg Tablet 2.5 mg PO QHS Qty: 1 0RF sennosides-docusate sodium [Stool Softener-Stimulant Laxat] 8.6-50 mg Tablet 1 tab PO BID PRN (Reason: Constipation) Qty: 1 0RF tramadol 50 mg Tablet 25 mg PO Q6H 7 Days Qty: 14 0RF ascorbic acid (vitamin C) [Vitamin C] 1,000 mg tablet 1 g PO DAILY Qty: 1 0RF Rx Instructions: Give this once a day when Ferrous sulfate given. Continued escitalopram oxalate 5 mg tablet 5 mg PO DAILY Qty: 90 1RF us-nac-LP-Pv-Lg-bpbjuic-lutein 1 EACH tablet 1 ea PO DAILY Patient Comments: vitamin biotin 500 mcg capsule 1 mg PO DAILY levothyroxine 112 mcg tablet 112 mcg PO DAILY Daily Fiber (psyllium-aspart) 3 gram Powder In Packet 1 packet PO DAILY Qty: 0 0RF Eliquis 2.5 mg tablet 2.5 mg PO BID Qty: 180 3RF Hold Instructions: Resume on 11/17/23. donepezil 5 mg tablet 5 mg PO QHS Qty: 90 3RF Held ferrous sulfate [FeroSul] 325 mg (65 mg iron) tablet See Rx Instructions .ROUTE .COMPLEX Qty: 90 3RF Hold Instructions: Resume on 12/19/23. Dose Instruction: take 1 tablet by mouth once daily Rx Instructions: take 1 tablet by mouth once daily Discontinued budesonide 90 mcg/actuation aerosol powdr breath activated 1 inh inhalation BID PRN (Reason: shortness of breath or wheezing) acetaminophen 500 mg Tablet 1,000 mg PO Q8 Qty: 0 0RF oxycodone 5 mg Tablet 5 mg PO Q4H PRN PRN (Reason: PAIN 4-10) Qty: 0 0RF metoprolol tartrate 25 mg tablet 25 mg PO BID Qty: 180 3RF Hold Instructions: Resume on 12/02/23. Referrals / Follow Up: Elizabeth Cai MD [Primary Care Provider] - Miguel Angel Arreola MD [Med Staff - Active Staff] - Disposition Disposition (needs filled in before D/C Order can be placed): Residential Facility (2) Fall Qualifiers: Encounter type: subsequent encounter Qualified Code(s): W19.XXXD - Unspecified fall, subsequent encounter (4) Right clavicle fracture Qualifiers: Encounter type: subsequent encounter Clavicle location: unspecified part of clavicle Fracture type: closed Fracture alignment: nondisplaced (5) Fracture of right superior pubic ramus Qualifiers: Encounter type: subsequent encounter Fracture type: closed (6) Fracture of right inferior pubic ramus Qualifiers: Encounter type: subsequent encounter Fracture type: closed 12/15/23 1056 <Electronically signed by Daniella Travis DO> Cosigner Signature (if applicable): CC: Dr. Elizabeth Cai MD ~ Work Phone: 1(680) 194-731604-09-2024 Progress note Author Daniella Travis December 13, 2023 4:41pm Note Date/Time December 13, 2023 9:20 am [facility] Medical Records Department [address] [place] [address] Progress Note 12/13/23914 MR#: [id number] Acct: [id number] Name: MARISA SANTIAGO Rep #:[id number] : 1935 88 From: Daniella Travis DO PCP: Dr. Elizabeth Cai MD Status:A DM IN Location: [id number] Subjective Subjective Afebrile VSS -systolic blood pressure remains elevated and ranged from 1 30-1 60 over thepast 24 hours. She was started on lisinopril 2.5 mg yesterday. Flight Deck Officer tellfaviolae she was on metoprolol 25 mg BID prior to her fall but this was held in the hospital due to concern for hypotension and was to be restarted on 12/01 but, this never happened because BP's were normal or she had mild systolic HTN. She hasa hx of asthma and also AF. She has a PM which was inserted for SSS. No tachycardia since arrival on rehab. She had her PM interrogated on 11/28/23 andshe is 100% paced with rare intrinsic beat. Maintaining appropriate oxygen saturation on RA Oral intake - FOOD good FLUIDS good Having 1-3 BM's a day. stool is soft but, not liquid. Discussed with nursing - no problems that need addressed. Nursing feels she is more mobile and has less complaints about pain. C/O thigh pain this AM when attempting to walk into the shower. Reviewed the THERAPY notes Medication list reviewed. She is c/o R thigh pain. Denies SOB and CP. Apixaban has been on hold for anemia with heme + stool. Has been wearing HASMUKH hose. Objective Data Objective Data Vital Signs: Vital Signs Temp Pulse Resp BP Pulse Ox O2 Del Method 97.8 F 73 16 142/63 H 94 Room Air 12/13/23 08:40 12/13/23 08:40 12/13/23 08:40 12/13/23 08:40 12/13/23 08:40 12/13/23 08:40 Oxygen Delivery Method Room Air Weight: 161 lb Body Mass Index (BMI) 24.5 Intake & Output: Intake and Output for Last 24 Hours 12/11/23 12/12/23 12/13/23 23:59 23:59 23:59 Intake Total 1150 / 1150 560 / 560 Output Total 300 / 300 1200 / 1200 450 / 450 Balance -300 / -300 -50 / -50 110 / 110 Lab / Micro Data 12/12/23 05:25 12/12/23 05:25 Micro: Microbiology 12/01/23 02:15 Urine Catheter - Catheter Urine Culture - Final Mixed Gram Positive Organisms 11/30/23 22:23 Stool Stool Occult Blood (DELIA) - Final Occult Blood Positive Physical Exam Const alert Constitutional Narrative: Pleasant and smiling. Makes good eye contact when speaking with me. General Appearance: cooperative HEENT moist oral mucous membranes Resp normal respiratory effort Resp Narrative: Few coarse crackles in the bases that mostly resolve with a few deep breaths. No coughing with deep breathing. Effort and Inspection: Negative for tachypneic Cardio regular rate, regular rhythm and no gallops GI normal to inspection, nondistended, normoactive bowel sounds, soft to palpation and non-tender Extremity Extremity Narrative: When I squeeze the R calf she has pain in the R medial thigh. The proximal R medial thigh is painful to palpate and feels a little ropey. No ankle edema. Skin General Skin Exam: no breakdown Rashes: no rashes Assessment & Plan Assessment/Plan (1) Physical debility: (2) Fall: QUALIFIERS: Encounter type: subsequent encounter Qualified Code(s): W19.XXXD - Unspecified fall, subsequent encounter (3) Acute pain due to trauma: (4) Right clavicle fracture: QUALIFIERS: Encounter type: subsequent encounter Clavicle location: unspecified part of clavicle Fracture type: closed Fracture alignment: nondisplaced (5) Fracture of right superior pubic ramus: QUALIFIERS: Encounter type: subsequent encounter Fracture type: closed (6) Fracture of right inferior pubic ramus: QUALIFIERS: Encounter type: subsequent encounter Fracture type: closed (7) Heme positive stool: (8) Anemia: (9) Right thigh pain: PLAN: Plan 1. Continue therapy 2. Venous ultrasounds of both lower extremities. Anticoagulants have been helddue to heme positive stool with anemia and she is not walking more than 8 steps a day. 3. Hemoccult stool not done yesterday because stool was mixed with urine but, HGB is stable and she was started on Protonix last week. Nursing was able to obtain a good stool sample today and the results of the hemoccult are pending. Charges/Coding Visit Charges Inpatient E&M: 91971 Subs Hosp L1 12/13/23 1157 <Electronically signed by Daniella Travis DO> Daniella Travis DO Cosigner Signature (if applicable): CC: ~ Signed ADDENDUM by Dr. Daniella Travis DO on 12/13/23 at 1641 Addendum Hemoccult stool is still positive even though he apixaban has been held. Hemoglobin is stable so we will restart Eliquis at 2.5 mg twice daily. May needa GI evaluation as an outpatient to determine the source of the blood loss. Results of the venous ultrasound are still pending. 12/13/23 1641 <Electronically signed by Daniella baca DO> Date _ Daniella Travis DO Cosigner Signature (if applicable): Date cc: ~* Signed Work Phone: [phone] 361-706404-08-2024 Progress note Author Daniella Travis December 12, 2023 3:58pm Note Date/Time December 12, 2023 12:2 9pm [facility] Medical Records Department [address] [place] [address] Progress Note 12/12/23 1223 MR#: [id number] Acct: [id number] Name: MARISA SANTIAGO Rep #:[id number] : 1935 88 From: Daniella Travis DO PCP: Dr. Elizabeth Cai MD Status:A DM IN Location: [place] [address] Subjective Subjective Marisa was seen on team rounds today. Her fire assistant Krupa and her friend Braxton were present in the room. Her son Bing participated by phone. Afebrile VSS-systolic blood pressure for the past 24 hours has ranged from 143/67 to 160/78. Diastolics are always within goal. Heart rate is within normal limits. She is not currently taking an antihypertensive. Maintaining appropriate oxygen saturation on RA Oral intake - FOOD excellent FLUIDS fair Discussed with nursing - no problems that need addressed Reviewed the THERAPY notes Medication list reviewed. All lab drawn this morning was personally reviewed. The white blood cell count is normal at 7.3. Hemoglobin is stable at 10.5 and platelets are within normal limits. Sodium is 138 and the potassium is 4.6. BUN is elevated at 33 but stable. Creatinine is 0.98 which is within her baseline. Marisa tells me she is sleeping well and she has a good appetite. Her bowels are moving regularly. She denies any dysuria. She denies cough, shortness of breath, chest pain, nausea/vomiting/abdominal pain and lightheadedness. Objective Data Objective Data Vital Signs: Vital Signs Temp Pulse Resp BP Pulse Ox O2 Del Method 97.7 F L 69 18 160/70 H 96 Room Air 12/12/23 08:14 12/12/23 08:14 12/12/23 08:14 12/12/23 08:14 12/12/23 08:14 12/12/23 08:14 Oxygen Delivery Method Room Air Weight: 161 lb Body Mass Index (BMI) 24.5 Intake & Output: Intake and Output for Last 24 Hours 12/10/23 12/11/23 12/12/23 23:59 23:59 23:59 Intake Total 1200 / 1200 240 / 240 Output Total 880 / 880 300 / 300 Balance 320 / 320 -300 / -300 240 / 240 Lab / Micro Data 12/12/23 05:25 12/12/23 05:25 Labs: Laboratory Results - last 24 hr 12/12/23 05:25: WBC 7.3, RBC 3.54 L, Hgb 10.5 L, Hct 33.6 L, MCV 94.9, MCH 29.7,MCHC 31.3 L, RDW Std Deviation 46.4 H, RDW Coeff of Radha 13.2, Plt Count 287, MPV9.7, Sodium 138, Potassium 4.6, Chloride 107, Carbon Dioxide 29.0, Anion Gap 2 L, BUN 33 H, Creatinine 0.98, Estim Creat Clear Calc 40.80, Est GFR (MDRD) Af Amer 69, Est GFR (MDRD) Non-Af 57 L, BUN/Creatinine Ratio 33.6 H, Glucose 86, Calcium 9.0 Micro: Microbiology 12/01/23 02:15 Urine Catheter - Catheter Urine Culture - Final Mixed Gram Positive Organisms 11/30/23 22:23 Stool Stool Occult Blood (DELIA) - Final Occult Blood Positive Physical Exam Const alert General Appearance: cooperative HEENT HEENT Narrative: Mucous membranes are mildly dry. No thrush. Resp normal respiratory effort and clear to auscultation bilaterally Resp Narrative: No cough. Effort and Inspection: Negative for tachypneic Cardio no murmurs and no gallops Cardio Narrative: Irregular irregular with normal heart rate GI normal to inspection, nondistended, normoactive bowel sounds, soft to palpation and non-tender GI Narrative: No guarding with palpation Extremity no calf tenderness General Extremity: Negative for edema Skin General Skin Exam: no breakdown Rashes: no rashes Psych cooperative Appearance: appropriate Activity / Motor Behavior: Negative for restless Assessment & Plan Assessment/Plan (1) Physical debility: (2) Fall: QUALIFIERS: Encounter type: subsequent encounter Qualified Code(s): W19.XXXD - Unspecified fall, subsequent encounter (3) Acute pain due to trauma: (4) Right clavicle fracture: QUALIFIERS: Encounter type: subsequent encounter Clavicle location: unspecified part of clavicle Fracture type: closed Fracture alignment: nondisplaced (5) Fracture of right superior pubic ramus: QUALIFIERS: Encounter type: subsequent encounter Fracture type: closed (6) Fracture of right inferior pubic ramus: QUALIFIERS: Encounter type: subsequent encounter Fracture type: closed (7) Heme positive stool: (8) Anemia: PLAN: acute on 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 PLAN: Plan 1. Continue therapy 2. Start lisinopril 2.5 mg p.o. at at bedtime 3. Hemoglobin is stable. Stool on 11/30/2023 was positive for blood and she wasstarted on Protonix. Will check another Hemoccult stool now that she has been on Protonix for a week and if it is negative will restart Eliquis. 4. Pt and family would like her to go to TCU when she is discharged from acute rehab on 12/14. 5. She is making progress with therapy. She took 8 steps today. 6. Start to taper the Tramadol in the next few days. She is not c/o pain unless we ask her if she is having pain. She does not look to be any any significant pain.....no facial grimacing, not restless.....she was restless and tearful at admission when the pain was not controlled.. Has not been tearful recently. Charges/Coding Visit Charges Inpatient E&M: 82125 Subs Hosp L2 12/12/23 1558 <Electronically signed by Daniella Travis DO> Daniella Travis DO Cosigner Signature (if applicable): CC: ~ Signed Work Phone: 1(654) 371-648904-04-2024 Progress note Author Daniella Travis December 08, 2023 5:31pm Note Date/Time December 08, 2023 10:1 4am [facility] Medical Records Department [address] [place] [address] Progress Note 12/08/23 1011 MR#: [id number] Acct: [id number] Name: MARISA SANTIAGO Rep #:[id number] : 1935 88 From: Daniella Travis DO PCP: Dr. Elizabeth Cai MD Status:A DM IN Location: [place] [address]-1 Subjective Subjective Afebrile VSS-systolic blood pressure during the days is elevated at the diastolics are within normal limits. Systolic blood pressure at at bedtime the past 2 days hasbeen 117. She is not on an antihypertensive. Maintaining appropriate oxygen saturation on RA Oral intake - FOOD good FLUIDS not being recorded. Discussed with nursing - no problems that need addressed Reviewed the THERAPY notes Medication list reviewed. She has no complaints when I ask her how she is doing. If I ask her about pain she c/o shoulder pain......she never complains to me of pelvic pain. Still requiring a lot of sueing not to bear weight on the RUE. Objective Data Objective Data Vital Signs: Vital Signs Temp Pulse Resp BP Pulse Ox O2 Del Method 98.1 F 70 16 162/71 H 96 Room Air 12/08/23 09:04 12/08/23 09:04 12/08/23 09:04 12/08/23 09:04 12/08/23 09:04 12/08/23 09:04 Oxygen Delivery Method Room Air Weight: 161 lb Body Mass Index (BMI) 24.5 Intake & Output: Intake and Output for Last 24 Hours 0412/07/23 12/08/23 23:59 23:59 23:59 Intake Total 480 / 480 240 / 240 Output Total 600 / 600 400 / 400 200 / 200 Balance -600 / -600 80 / 80 40 / 40 Lab / Micro Data 12/06/23 05:25 12/05/23 05:29 Micro: Microbiology 12/01/23 02:15 Urine Catheter - Catheter Urine Culture - Final Mixed Gram Positive Organisms 11/30/23 22:23 Stool Stool Occult Blood (DELIA) - Final Occult Blood Positive Physical Exam Const alert General Appearance: cooperative Orientation / Consciousness: confused HEENT HEENT Narrative: Mucous membranes are mildly dry. No thrush. Resp normal respiratory effort and clear to auscultation bilaterally Resp Narrative: No cough. Effort and Inspection: Negative for tachypneic Cardio no murmurs and no gallops Cardio Narrative: Irregular irregular with normal heart rate GI normal to inspection, nondistended, normoactive bowel sounds, soft to palpation and non-tender GI Narrative: No guarding with palpation Extremity no calf tenderness General Extremity: Negative for edema Skin General Skin Exam: no breakdown Rashes: no rashes Psych cooperative Appearance: appropriate Activity / Motor Behavior: Negative for restless Assessment & Plan Assessment/Plan (1) Physical debility: (2) Fall: QUALIFIERS: Encounter type: subsequent encounter Qualified Code(s): W19.XXXD - Unspecified fall, subsequent encounter (3) Acute pain due to trauma: (4) Right clavicle fracture: QUALIFIERS: Encounter type: subsequent encounter Clavicle location: unspecified part of clavicle Fracture type: closed Fracture alignment: nondisplaced (5) Fracture of right superior pubic ramus: QUALIFIERS: Encounter type: subsequent encounter Fracture type: closed (6) Fracture of right inferior pubic ramus: QUALIFIERS: Encounter type: subsequent encounter Fracture type: closed (7) Heme positive stool: PLAN: Was started on Protonix. No c/o nausea/vomiting/epigastric pain. Eating well. Good bowel function. BS not hyperactive. PLAN: Plan 1. Continue therapy 2. 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 3. Marisa does not complain of pain unless she is asked and then she says yes and asks for pain medication. She seems to be doing well on scheduled tramadol. 4. Recheck BMP and CBC on Tuesday. 5. Continue scheduled tramadol and Tylenol. Start tapering tramadol sometime next week. 6. She is making slow progress with PT/OT. ST feels she is likely at her baseline with cognition. 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 today she was able to stand pivot to/from the 3 in 1 commode over the toilet using a hemiwalker at mod/max assist. Toileting tasks are still requiring max assist for management of clothing and posterior care. She was able to wash her hands, face and brush her teeth at set up while seated at the sink. Charges/Coding Visit Charges Inpatient E&M: 61183 Subs Hosp L1 12/08/23 1731 <Electronically signed by Daniella Travis DO> Daniella Travis DO Cosigner Signature (if applicable): CC: ~ Signed Work Phone: 1(688) 649-176604-02-2024 [facility] 06, 2023 5:29pm Note Date/Time December 06, 2023 12:0 5pm [facility] Medical Records Department [address] [place] [address] Progress Note 12/06/23 1158 MR#: [id number] Acct: [id number] Name: MARISA SANTIAGO Rep #:[id number] : 1935 88 From: Daniella Travis DO PCP: Dr. Elizabeth Cai MD Status:A DM IN Location: [id number] Subjective Subjective Afebrile VSS Maintaining appropriate oxygen saturation on RA Oral intake - FOOD good FLUIDS Not being monitored. Discussed with nursing - polar care effective last night in controlling pain. Sleeping well at night and has a good appetite. Reviewed the THERAPY notes-PT documented that she did not seem less painful today. Medication list reviewed. Hemoglobin today is stable at 10.5. Started on Protonix yesterday for heme + stool. Denies lightheadedness, CP, SOB, palpitations, N/V/abd pain, dysuria andcalf pain. Did not c/o R shoulder pain until I asked. She has the Polar Care on her shoulder and she states this helps. She tells me she is sleeping well atnight. Objective Data Objective Data Vital Signs: Vital Signs Temp Pulse Resp BP Pulse Ox O2 Del Method 98.2 F 71 20 H 149/72 H 98 Room Air 12/05/23 20:00 12/05/23 20:00 12/05/23 20:00 12/05/23 20:00 12/05/23 20:00 12/05/23 20:25 Oxygen Delivery Method Room Air Weight: 158 lb 4.67 oz Body Mass Index (BMI) 24.0 Intake & Output: Intake and Output for Last 24 Hours 12/04/23 12/05/23 12/06/23 23:59 23:59 23:59 Intake Total 520 / 520 760 / 760 Output Total 650 / 650 450 / 450 600 / 600 Balance -130 / -130 310 / 310 -600 / -600 Lab / Micro Data 12/06/23 05:25 12/05/23 05:29 Labs: Laboratory Results - last 24 hr 12/06/23 05:25: Hgb 10.5 L, Hct 32.9 L Micro: Microbiology 12/01/23 02:15 Urine Catheter - Catheter Urine Culture - Final Mixed Gram Positive Organisms 11/30/23 22:23 Stool Stool Occult Blood (DELIA) - Final Occult Blood Positive Physical Exam Const alert Constitutional Narrative: She appears to be in no distress when I see her and she is eating her supper. She is pleasant and talkative. General Appearance: cooperative Orientation / Consciousness: confused HEENT HEENT Narrative: Mucous membranes are mildly dry. No thrush. Resp normal respiratory effort and clear to auscultation bilaterally Resp Narrative: No cough. Effort and Inspection: Negative for tachypneic Cardio no murmurs and no gallops Cardio Narrative: Irregular irregular with normal heart rate GI normal to inspection, nondistended, normoactive bowel sounds, soft to palpation and non-tender GI Narrative: No guarding with palpation Extremity no calf tenderness General Extremity: Negative for edema Skin General Skin Exam: no breakdown Rashes: no rashes Psych cooperative Appearance: appropriate Activity / Motor Behavior: Negative for restless Assessment & Plan Assessment/Plan (1) Physical debility: (2) Fall: QUALIFIERS: Encounter type: subsequent encounter Qualified Code(s): W19.XXXD - Unspecified fall, subsequent encounter (3) Acute pain due to trauma: (4) Right clavicle fracture: QUALIFIERS: Encounter type: subsequent encounter Clavicle location: unspecified part of clavicle Fracture type: closed Fracture alignment: nondisplaced (5) Fracture of right superior pubic ramus: QUALIFIERS: Encounter type: subsequent encounter Fracture type: closed (6) Fracture of right inferior pubic ramus: QUALIFIERS: Encounter type: subsequent encounter Fracture type: closed (7) Heme positive stool: PLAN: Plan 1. Continue therapy 2. No adjustments to the medication regimen today. She seems to be doing better with scheduled tramadol rather than as needed. Charges/Coding Visit Charges Inpatient E&M: 99787 Subs Hosp L1 12/06/23 1729 <Electronically signed by Daniella Travis DO> Daniella Travis DO Cosigner Signature (if applicable): CC: ~ Signed Work Phone: 1([phone] 250-753004-01-2024 Progress note Author Daniella [facility] December 05, 2023 4:40pm Note Date/Time December 05, 2023 4:40 pm [facility] Medical Records Department [address] [place] [address] Progress Note 12/05/23 1620 MR#: [id number] Acct: [id number] Name: MARISA SANTIAGO Rep #:[id number] : 1935 88 From: Daniella Travis DO PCP: Dr. Elizabeth Cai MD Status:A DM IN Location: [place] [address] Subjective Subjective Marisa was seen on team rounds today. 2 of her sons were present in the room and also her fire assistant and a good friend. All their questions were answered to their satisfaction. They #5/5 for acute cystitis. Will DC after the last dose today. Afebrile VSS Maintaining appropriate oxygen saturation on RA Oral intake - FOOD good FLUIDS currently not being recorded Discussed with nursing -night nursing reported that she had increased pain and was uncomfortable last night. She only took 2 doses of tramadol yesterday and has been taking 3. She is also on scheduled Tylenol 1 g p.o. every 8 hours. Reviewed the THERAPY notes-she is making progress. She was able to take 6 steps in the parallel bars. Has difficulty remembering to not wt bear on the R shoulder. Medication list reviewed. Marisa denies cephalgia, lightheadedness, chest pain, shortness of breath, nausea/vomiting/abdominal pain, dysuria and calf tenderness. She tells me thather right shoulder is "sore". When I palpate the clavicle she had less pain than yesterday prior to the lidocaine patch. she is getting the patch applied at 1300 so she did not have the patch on when doing therapy this morning. No diarrhea. Hemoglobin today is down to 9.8 from 11.1 on 12/01/2023. Hemoccult stool was positive and she was started on a PPI. The BUN/creatinine ratio is elevated at 38.8. Creatinine is stable. I think the drop in hemoglobin is most likely due to Hemoccult positive stool and not to better hydration. Will recheck a HGB in the AM and if it continues to drop may need to consult GI. Will also increase the Protonix to twice daily for the next 1 to 2 weeks. Objective Data Objective Data Vital Signs: Vital Signs Temp Pulse Resp BP Pulse Ox O2 Del Method 98.2 F 69 16 138/59 H 97 Room Air 12/05/23 07:12 12/05/23 07:12 12/05/23 07:12 12/05/23 07:12 12/05/23 07:12 12/05/23 10:00 Oxygen Delivery Method Room Air Weight: 158 lb 4.67 oz Body Mass Index (BMI) 24.0 Intake & Output: Intake and Output for Last 24 Hours 12/03/23 12/04/23 12/05/23 23:59 23:59 23:59 Intake Total 520 / 520 360 / 360 Output Total 700 / 700 650 / 650 450 / 450 Balance -700 / -700 -130 / -130 -90 / -90 Lab / Micro Data 12/05/23 05:29 12/05/23 05:29 Labs: Laboratory Results - last 24 hr 12/05/23 05:29: WBC 5.8, RBC 3.28 L, Hgb 9.8 L, Hct 31.1 L, MCV 94.8, MCH 29.9, MCHC 31.5 L, RDW Std Deviation 46.3 H, RDW Coeff of Radha 13.2, Plt Count 183, MPV10.2, Sodium 139, Potassium 4.0, Chloride 108 H, Carbon Dioxide 28.0, Anion Gap 3 L, BUN 33 H, Creatinine 0.85, Estim Creat Clear Calc 47.04, Est GFR (MDRD) Af Amer 81, Est GFR (MDRD) Non-Af 67, BUN/Creatinine Ratio 38.8 H, Glucose 100, Calcium 9.1 Micro: Microbiology 12/01/23 02:15 Urine Catheter - Catheter Urine Culture - Final Mixed Gram Positive Organisms 11/30/23 22:23 Stool Stool Occult Blood (DELIA) - Final Occult Blood Positive Physical Exam Const alert Constitutional Narrative: She is sitting up in the recliner and looks comfortable. She does not look likeshe is in pain. She is participating in the conversation. General Appearance: cooperative Orientation / Consciousness: confused HEENT HEENT Narrative: Mucous membranes are mildly dry. No thrush. Resp normal respiratory effort and clear to auscultation bilaterally Resp Narrative: No cough. Effort and Inspection: Negative for tachypneic Cardio no gallops Cardio Narrative: Irregular irregular with normal heart rate GI normal to inspection, nondistended, normoactive bowel sounds, soft to palpation and non-tender GI Narrative: No guarding with palpation Extremity no calf tenderness General Extremity: Negative for edema Skin General Skin Exam: no breakdown Rashes: no rashes Psych cooperative Appearance: appropriate Activity / Motor Behavior: Negative for restless Assessment & Plan Assessment/Plan (1) Physical debility: (2) Fall: QUALIFIERS: Encounter type: subsequent encounter Qualified Code(s): W19.XXXD - Unspecified fall, subsequent encounter (3) Acute pain due to trauma: (4) Right clavicle fracture: QUALIFIERS: Encounter type: subsequent encounter Clavicle location: unspecified part of clavicle Fracture type: closed Fracture alignment: nondisplaced (5) Fracture of right superior pubic ramus: QUALIFIERS: Encounter type: subsequent encounter Fracture type: closed (6) Fracture of right inferior pubic ramus: QUALIFIERS: Encounter type: subsequent encounter Fracture type: closed (7) Acute cystitis: QUALIFIERS: Hematuria presence: without hematuria Qualified Code(s): N30.00 - Acute cystitis without hematuria (8) Heme positive stool: PLAN: Plan 1. Continue therapy 2. She does not remember to call for a pain medication when she starts to get uncomfortable. Will schedule the Tramadol and give Tylenol in between the dosesof Tramadol. 3. She is making progress in therapy and is now taking steps and able to stand and pivot. Unsure if she will be able to go home at DC from rehab. She has a fire assistant at home and the fire assistant is willing to stay at night for the first few weeks after DC. Will reassess next week at rounds how much progress she hasmade.......if therapy thinks she may be able to do OK at home will have her fire assistant come in for family training prior to DC. 4. Recheck hemoglobin in the AM and increase Protonix to twice daily. Place apixaban on hold for now. Charges/Coding Visit Charges Inpatient E&M: 28765 Subs Hosp L2 12/05/23 1640 <Electronically signed by Daniella Travis DO> Daniella Travis DO Cosigner Signature (if applicable): CC: ~ Signed Work Phone: 1([phone]) 411-254903-31-2024 [facility] 04, [facility] 12:10pm Note Date/Time December 04, 2023 10: 10am [facility] Medical Records Department [address] [place] [id number] Progress Note 12/04/23 1000 MR#: [id number] Acct: [id number] Name: MARISA SANTIAGO Rep #:[id number] : 1935 88 From: Daniella Travis DO PCP: Dr. Elizabeth Cai MD Status:A DM IN Location: [facility] Subjective Subjective Day #4 Augmentin for acute cystitis Afebrile VSS -systolic blood pressure is mildly elevated but the diastolics are always within normal limits. Heart rate is within normal limits. Maintaining appropriate oxygen saturation on RA-96 to 97%. Oral intake - FOOD good FLUIDS fair Having regular bowel movements. Discussed with nursing - no problems that need addressed Reviewed the THERAPY notes-fatigues easily. She stood for 2 trials in the parallel bars yesterday each being about 45 seconds. Able to transfer from the recliner to the bedside commode with a hemiwalker and max assist x 2. Trying tohold onto the walker with both hands. Medication list reviewed she is taking 50 mg of tramadol usually 3 times daily. The urine culture grew 11,000-25,000 colonies of mixed gram-positive organisms. It was a catheterized specimen. Will finish 5 days of Augmentin and then discontinue. She previously had a low-grade fever of 99.4 and since Augmentin was started fever has resolved. She denies dysuria. She feels that her pain isadequately controlled. She is sleeping well at night. She is having some pain in her right shoulder at the site of the clavicle fracture. She is requiring a lot of cueing not to use the RUE when she is working with therapy. Marisa denies chest pain, cough, shortness of breath, lightheadedness, nausea/vomiting/abdominal pain, dysuria and calf pain. Objective Data Objective Data Vital Signs: Vital Signs Temp Pulse Resp BP Pulse Ox O2 Del Method 97.6 F L 69 15 150/78 H 97 Room Air 12/04/23 07:26 12/04/23 07:26 12/04/23 07:26 12/04/23 07:26 12/04/23 07:26 12/04/23 07:26 Oxygen Delivery Method Room Air Weight: 158 lb 4.67 oz Body Mass Index (BMI) 24.0 Intake & Output: Intake and Output for Last 24 Hours 12/02/23 12/03/23 12/04/23 23:59 23:59 23:59 Intake Total 150 / 150 400 / 400 Output Total 200 / 200 700 / 700 450 / 450 Balance -50 / -50 -700 / -700 -50 / -50 Lab / Micro Data 12/01/23 08:57 12/01/23 08:57 Micro: Microbiology 12/01/23 02:15 Urine Catheter - Catheter Urine Culture - Final Mixed Gram Positive Organisms 11/30/23 22:23 Stool Stool Occult Blood (DELIA) - Final Occult Blood Positive Physical Exam Const alert Constitutional Narrative: She is lying in bed and does not appear to be in any distress. General Appearance: cooperative Orientation / Consciousness: confused HEENT HEENT Narrative: Mucous membranes are mildly dry. No thrush. Resp normal respiratory effort and clear to auscultation bilaterally Resp Narrative: No cough. Effort and Inspection: Negative for tachypneic Cardio Cardio Narrative: Irregular irregular with normal heart rate GI normal to inspection, nondistended, normoactive bowel sounds, soft to palpation and non-tender GI Narrative: No guarding with palpation Extremity no calf tenderness General Extremity: Negative for edema Skin General Skin Exam: no breakdown Rashes: no rashes Assessment & Plan Assessment/Plan (1) Physical debility: (2) Fall: QUALIFIERS: Encounter type: subsequent encounter Qualified Code(s): W19.XXXD - Unspecified fall, subsequent encounter (3) Acute pain due to trauma: (4) Right clavicle fracture: QUALIFIERS: Encounter type: subsequent encounter Clavicle location: unspecified part of clavicle Fracture type: closed Fracture alignment: nondisplaced (5) Fracture of right superior pubic ramus: QUALIFIERS: Encounter type: subsequent encounter Fracture type: closed (6) Fracture of right inferior pubic ramus: QUALIFIERS: Encounter type: subsequent encounter Fracture type: closed PLAN: Plan 1. Continue therapy 2. Start lactobacillus 1 p.o. twice daily for total of 10 doses. 3. Discontinue Augmentin after 10 doses. 4. Recheck a BMP and CBC in the AM. 5. Try a Lidoderm patch on the right distal clavicle area for better pain control 6. May need SNF at [place] from rehab........I do not see her being able to maintainNWB on the RUE without 28/03 supervision. She is afraid to ambulate and endurance is limited at this time. Charges/Coding Visit Charges Inpatient E&M: 53295 Subs Hosp L1 12/04/23 1210 <Electronically signed by Daniella Travis DO> Daniella Travis DO Cosigner Signature (if applicable): CC: ~ Signed Work Phone: [phone]) 967-254503-31-2024 Progress note Author Daniella Travis December 04, 2023 10:00am Note Date/Time December 01, 2023 8:4 7am [facility] Medical Records Department [address] [place] [address] Progress Note 12/01/23 0843 MR#: [id number] Acct: [id number] Name: MARISA SANTIAGO Rep #:[id number] : 1935 88 From: Daniella LuciaAngelique Angy PCP: Dr. Elizabeth Cai MD Status:A DM IN Location: [facility] Subjective Subjective Afebrile VSS Maintaining appropriate oxygen saturation on RA Oral intake - FOOD good FLUIDS poor Discussed with nursing - no problems that need addressed. Slept well last night. Appetite is good. Reviewed the THERAPY notes Medication list reviewed. Stool is Hemoccult positive UA is nitrate positive and has pyuria with 4+ bacteria Marisa feels that her pain is adequately controlled at this time. She thinks the tramadol works better than the oxycodone. She denies any nausea, epigastricpain, vomiting, lightheadedness, diarrhea/constipation, dysuria or calf pain. Objective Data Objective Data Vital Signs: Vital Signs Temp Pulse Resp BP Pulse Ox O2 Del Method 97.6 F L 72 16 130/62 H 93 Room Air 11/30/23 21:00 11/30/23 21:00 11/30/23 21:00 11/30/23 21:00 12/01/23 06:51 12/01/23 06:51 Oxygen Delivery Method Room Air Weight: 158 lb 4.67 oz Body Mass Index (BMI) 24.0 Intake & Output: Intake and Output for Last 24 Hours 11/29/23 11/30/23 12/01/23 23:59 23:59 23:59 Output Total 600 / 600 200 / 200 Balance -600 / -600 -200 / -200 Lab / Micro Data 12/01/23 08:57 12/01/23 08:57 Labs: Laboratory Results - last 24 hr 12/01/23 02:15: Urine Color Yellow, Urine Clarity Clear, Urine pH 5.0, Ur Specific [place] 1.015, Urine Protein Negative, Urine Glucose (UA) Normal, UrineKetones Negative, Urine Occult Blood 25 H, Urine Nitrite Positive H, Urine Bilirubin Negative, Urine Urobilinogen Normal, Ur Leukocyte Esterase 25 H, UrineRBC 0-5 SEEN, Urine WBC 5-10 SEEN, Ur Squamous Epith Cells 0-5 SEEN, Urine Bacteria 4+, Urine Mucus 0 SEEN Micro: Microbiology 11/30/23 22:23 Stool Stool Occult Blood (DELIA) - Final Occult Blood Positive Physical Exam Const alert General Appearance: cooperative and well kempt HEENT head/scalp atraumatic Resp normal respiratory effort, normal air movement and clear to auscultation bilaterally Cardio no murmurs, no rub and no gallops Cardio Narrative: She is in AF with controlled VR. GI normal to inspection, nondistended, normoactive bowel sounds, soft to palpation and non-tender GI Narrative: No guarding with palpation. Extremity no clubbing, cyanosis or edema and no calf tenderness Skin no wounds General Skin Exam: no breakdown Rashes: no rashes Assessment & Plan Assessment/Plan (1) Physical debility: (2) Fall: QUALIFIERS: Encounter type: subsequent encounter Qualified Code(s): W19.XXXD - Unspecified fall, subsequent encounter (3) Acute pain due to trauma: (4) Right clavicle fracture: QUALIFIERS: Encounter type: subsequent encounter Clavicle location: unspecified part of clavicle Fracture type: closed Fracture alignment: nondisplaced (5) Fracture of right superior pubic ramus: QUALIFIERS: Encounter type: subsequent encounter Fracture type: closed (6) Fracture of right inferior pubic ramus: QUALIFIERS: Encounter type: subsequent encounter Fracture type: closed PLAN: Plan 1. Continue therapy 2. Start Protonix 40 mg p.o. daily today 3. Augmentin 500 mg p.o. twice daily empirically until results of urine cultureare available 4. Urine has been sent for culture 5. Continue tramadol for pain 6. CBC with differential and BMP now. Suspect we may need to give IV fluids. Fluid intake is poor. Charges/Coding Visit Charges Inpatient E&M: 60717 Subs Hosp L1 12/04/23 1000 <Electronically signed by Daniella Travis DO> Daniella Travis DO Cosigner Signature (if applicable): CC: ~ Signed Work Phone: 1([phone]) 841-961903-28-2024 History and physical note Author Daniella Travis December 01, 2023 8:57am Note Date/Time November 30, 2023 1:5 8pm [facility] Medical Records Department [address] [place] [address] Post Admission Physician Luis 11/30/23 1358 MR#: [id number] Acct: [id number] Name: MARISA SANTIAGO Rep #:[id number] : 1935 88 From: Daniella Travis DO PCP: Dr. Elizabeth Cai MD Status:A DM IN Location: [place] [address] Admission Information Primary Diagnosis:: Debility due to fall with pelvic and R clavicle fractures. Status Changes from Prescreening?: Medical (has a UTI at presentation to rehab ) Actual Problem List:: Infection, Falls, Pain, ALteration in Cmfrt, Cognitve Impr/Memory Loss, Bowel, Constipation, Alteration in Sleep, Mobility Impaired, Self Care Deficit and Alteration-Leisure Activ. Risk of Complications DVT: HASMUKH Sheets and - (On Eliquis for chronic AF) Bleeding: Monitor Lab Values, Nursing to Teach Precautions for anti-coagulation therapy., Wound, if applicable, to be assessed every shift. and Stroke patients assessed for lethargy or change in status. Infection: Clinical Staff to Monitor for S/S of infection: and S/S of infection include fever, redness, warmth, etc. Urinary Tract Infection: Monitor for frequency, burning, discomfort, or incontinence. and Nursing will obtain urine sample for urinalysis and C&S when ordered. Aspiration: Clinical staff will monitor for coughing, drooling, congestion., Speech will evaluate swallowing and dsyphasia. and Nursing will monitor patient swallowing during meals. Falls: Patient will be evaluated for Fall Precautions and Patient will be placedon Fall Precautions as indicated per protocol. Skin Breakdown: Nursing will assess skin daily using assessment tool. and Nursing will place on Skin Breakdown Precautions as indicated. Pain: Clinical staff will assess patient's pain level per protocol., Medicationswill be given, if needed, and the pain level reassessed. and Other methods: Massage, distraction, decrease stimulus, etc. used PRN. Plan of Care Patient requires physician specializing in physical medicine and rehab oversightto provide close medical supervision of rehab issues including: Pain Management,Sleep Problems, Bowel and Bladder, Medical and co-morbidity Management, DVT prophylaxis, Rehabilitation Leadership and Coordination of treatment team Patient needs Physical Therapy: For a minimum of 1 hour and At least 5 out of 7 days Patient needs Physical Therapy to improve:: Mobility, Strengthening, Transfers, Stretching, ROM, Endurance, Stairs, Gait and Balance Patient needs Occupational Therapy: For a minimum of 1 hour and At least 5 out of 7 days Patient needs Occupational Therapy to improve ADL's incl.: Eating, Grooming, Bathing, Dressing, Toileting, Toilet transfers, Community Reintegration, Higher functioning activities, Household tasks, Adaptive Equipment, Splinting and Otheractivities as determined Patient requires speech therapy: For a minimum of 1 hour and At least 5 out of 7days Patient requires speech therapy for: Swallowing, Cognition, Language Skills and Compensatory Strategies Patient requires 24/ Rehabilitation Nursing for: Pain Issues, Identifying and preventing risk factors, Monitoring and reporting current medical conditions, Assisting with ambulation, transfer, and all ADL's, Teaching patients about disease process and medications, Family teaching, Providing safe environment, Bowel and Bladder Issues, Skin integrity and Medication Management Patient needs Glove Former/ Case Management for: Discharge Planning, Arranging Home Equipment or Services and Family Interventions Patient needs Dietary and Nutrition Services for: Adequate Nutrition, Nutritional Supplements and Nutritional Education Goals Goals Patient will remain: free from falls Patient will perform eating at: MOD I level of assist. Patient will perform bed mobility at: MOD I level of assist. Patient will complete transfers from bed to chair at: Standby Assist. Patient will ambulate: - (50 feet with wheeled walker and contact-guard assist/standby assist on various surfaces.) Patient will complete upper body dressing at: - (Minimal assistance for increased independence with self-care) Patient will complete lower body dressing at: - (Min assist with adaptive equipment as needed to increase independence.) Patient will complete toilet transfer at: - (Minimal assistance.) Patient will complete toileting at: - (Minimal assistance) Patient will perform bathing at: - (Min assist.) Patient will complete grooming at: - (set up) Patient will achieve: - (2 steps with 2 handrails at contact-guard assist) Patient will have pain level of: of 3 or less Patient's skin will: remain intact Patient will receive: adequate nutrition. Discharge Planning Estimated Length of stay (days): 21 Anticipated D/C Destination: Residential Facility Was Preadmission Assessment Accurate?: Yes 12/01/23 0857 <Electronically signed by Daniella Travis DO> Cosigner Signature (if applicable): CC: ~ Signed Work Phone: 1(610) 660-766603-27-2024 History and physical note Author Danielal Travis November 30, 2023 2:03pm Note Date/Time November 30, 2023 11: 55am [facility] Medical Records Department [address] [place] [address] History & Physical Exam 11/30/23 1123 MR#: [id number] Acct: [id number] Name: MARISA SANTIAGO Rep #:[id number] : 1935 88 From: Daniella Travis DO PCP: Dr. Elizabeth Cai MD Status:A DM IN Location: [address] HPI - General General Date of Admission: 11/29/23 Date of Service: 11/30/23 Chief Complaint: Debility due to fall with pelvic fractures HPI Narrative MARISA SANTIAGO, is a 88 YO F with a PMH of hypothyroidism, anxiety/depression, OA, asthma/AFIB , complete heart block (S/P PM), dementia, HTN, hx of GIB, presbycusis, microscopic colitis. NR MV regurgitation, RA, parathyroid abnormality, venous insufficiency and chronic anticoagulation with Eliquis who presented to the ED at [facility] on 11/27/23 after a fall from standing height c/o R shoulder pain and inability to move her R thigh. She denied syncopeand stated the fall occurred when she was negotiating a step up into her kitchen. Imaging showed R superior and inferior pubic rami fractures and a ND R clavicle fx. Dr. Arreola from orthopedics felt no surgical intervention was indicated. Because she lives alone and was not able to ambulate he was admitted to the hospitalist service. She was seen by PT/OT and acute rehab was recommended at [place]. She was transferred to the acute inpt rehab unit at [facility] on 11/29/23 for 3 hours of therapy daily to restore function/independence at or nearher level prior to the fall/fractures. Significant lab at admission to the emergency department included a low hemoglobin at 10.5 with normochromic normocytic indices and an elevated RDW. Platelets were within normal limits. BUN was high at 25 with a creatinine of 0.85 urine/creatinine ratio of 29.6. Sodium and potassium are normal. She is currently taking 5 mg of Oxycodone Q 4 PRN and scheduled Tylenol 1,000 mgQ 8H for pain control. The Oxycodone causes some confusion and increased difficulty with memory which is upsetting to her. She also had urine retention and had a Walker that was discontinued at transfer to rehab. [facility] Medical History (Updated 11/30/23 @ 13:[address] Daniella Travis DO) Acquired hypothyroidism Allergies Anemia Anxiety and depression Arthritis Asthma Atrial fibrillation BRBPR (bright red blood per rectum) Cardiology follow-up encounter Carpal tunnel syndrome Chronic anticoagulation Closed head injury Complete heart block Concussion CVA (cerebral vascular accident) Delayed wound healing Dementia Distal radius fracture Edema leg Essential (primary) hypertension Fall Flu vaccine need Fracture of metacarpal base, first, right hand, closed Fracture of right inferior pubic ramus Fracture of right superior pubic ramus GI bleed Goiter Hearing problem History of GI bleed History of IBS History of stress test Hyperlipidemia Hyperlipidemia Hypertension Hypothyroidism Hypothyroidism Iron deficiency anemia Malnutrition Microscopic colitis Microscopic colitis Mild intermittent asthma Non-smoker Nonrheumatic mitral valve insufficiency Open wound of left ring finger Osteoarthritis Pacemaker lead malfunction Parathyroid disorder Periorbital edema of left eye Persistent atrial fibrillation Personal history of colonic polyps Rheumatoid arthritis Right clavicle fracture Right hemiparesis Sick sinus syndrome Stroke/cerebrovascular accident Thyroid storm Ulcer of left lower extremity with fat layer exposed Ulcer of right lower extremity with fat layer exposed Venous insufficiency Vertigo 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 Wears glasses Home Medications xsobdmif-lzz-PS 0.4 mg-calcium 162 mg-iron 18 sz-qaetcha-swttea tablet 1 ea PO DAILY supplement 06/03/19 [History Last Taken 04/25/21 08:31] apixaban 2.5 mg tablet (Eliquis) 2.5 mg PO BID blood thinner #180 tabs 11/24/22 [Rx Last Taken 11/29/23] budesonide 90 mcg/actuation breath activated powder inhaler 1 inh inhalation BIDPRN shortness of breath or wheezing 03/14/23 [History Last Taken 11/29/23] biotin 500 mcg capsule 1 mg PO DAILY supplement 03/25/23 [History Last Taken Unknown] donepezil 5 mg tablet 5 mg PO QHS memory #90 tabs 04/07/23 [Rx Last Taken 11/28/23] metoprolol tartrate 25 mg tablet 25 mg PO BID BP #180 tabs 06/20/23 [Rx Last Taken Unknown] ferrous sulfate 325 mg (65 mg iron) tablet (FeroSul) See Rx Instructions .Route .COMPLEX supplement #90 TABLETS 06/27/23 [Rx Last Taken 11/29/23] escitalopram oxalate 5 mg tablet 5 mg PO DAILY anxiety #90 tabs 07/18/23 [Rx Last Taken 11/29/23] levothyroxine 112 mcg tablet 112 mcg PO DAILY thyroid 11/09/23 [History Last Taken 11/29/23] acetaminophen 500 mg tablet 1,000 mg (2 x 500 mg) PO Q8 pain #0 tabs 11/29/23 [Rx Last Taken 11/29/23] oxycodone 5 mg tablet 5 mg PO Q4H PRN PRN PAIN 4-10 #0 tabs 11/29/23 [Rx Last Taken 11/29/23] psyllium husk (aspartame) 3 gram oral powder packet (Daily Fiber (psyllium-aspartame)) 1 packet PO DAILY bowel mobility #0 ea 11/29/23 [Rx Last Taken 11/28/23] Allergy/AdvReac Type Severity Reaction Status Date / Time Environmental Allergies: Allergy Mild sneezing Verified 11/27/23 16:57 Uncoded latex AdvReac Itching Verified 11/27/23 16:57 sulfamethoxazole AdvReac Nausea Verified 11/27/23 16:57 [From Bactrim] trimethoprim [From Bactrim] AdvReac Nausea Verified 11/27/23 16:57 Family History Father CAD (coronary artery disease) Brother Cancer Leukemia Brother Epilepsy Mother Colon cancer Other CVA (cerebral vascular accident) Diabetes Surgical History (Updated 11/30/23 @ 13:[address] Daniella Travis DO) H/O thyroidectomy H/O thyroidectomy History of knee replacement History of permanent cardiac pacemaker placement History of right hip replacement Status post placement of cardiac pacemaker Social History (Updated 11/30/23 @ 13:[address] 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 Constitutional Constitutional: Denies anorexia, change in weight, chills, fatigue, fever(s), night sweats or weakness Eyes Eyes: Denies blurry vision, change in vision, eye pain or loss of vision ENT HEENT: Denies abnormal hearing, dysphagia, headache(s), hearing loss, nasal congestion or sore throat Cardiovascular Cardiovascular: Reports lightheadedness; Denies chest pain, dyspnea on exertion,edema, orthopnea, palpitations, paroxysmal nocturnal dyspnea or syncope Respiratory/Chest Respiratory/Chest: Denies cough, dyspnea, shortness of breath at rest, shortnessof breath with exertion or wheezing Gastrointestinal Gastrointestinal: Denies abdominal pain, constipation, diarrhea, dyspepsia, hematemesis, hematochezia, nausea or vomiting Genitourinary Genitourinary: Reports difficulty urinating; Denies burning urination, dysuria, hematuria, nocturia, urinary frequency, urinary hesitancy, urinary incontinence or urinary urgency Musculoskeletal Musculoskeletal: Reports extremity pain and other Details: pelvic pain ; Denies back pain, joint swelling or neck pain Neurologic Neurologic: Reports confusion, dizziness and memory loss; Denies disequilibrium,focal weakness, frequent falls, headache(s), paresthesias, radicular pain, seizures or tremor(s) Psychiatric Psychiatric: Denies anxiety, depression, homicidal ideation or suicidal ideation Endocrine Endocrinology: Denies change in body appearance, polydipsia or polyuria Hematologic/Lymphatic Hematologic/Lymphatic: Reports easy bleeding and easy bruising; Denies lymphadenopathy Allergic/Immunologic Allergic/Immunologic: Denies rhinitis, eczemia or asthma Vital Signs Vital Signs Vital Signs: 11/29/23 16:47 11/29/23 19:23 11/29/23 20:23 Temperature 98.5 F 98.3 F Temperature Source Temporal Temporal Pulse Rate 69 66 Pulse Strength Normal (2+) Respiratory Rate 18 16 Respiratory Effort Respiratory Depth Respiratory Pattern Blood Pressure 120/56 L 124/62 H Blood Pressure Mean 77 82 Blood Pressure Source Monitor Monitor Blood Pressure Position Semi-Fowlers Semi-Fowlers Blood Pressure Location Left Arm Left Arm Pulse Ox 93 93 Oxygen Delivery Method Room Air Room Air 11/29/23 22:00 11/30/23 07:24 11/30/23 08:08 Temperature 97.6 F L Temperature Source Temporal Pulse Rate 66 69 Pulse Strength Respiratory Rate 16 16 Respiratory Effort Normal Non-Labored Respiratory Depth Normal Respiratory Pattern Normal Blood Pressure 154/67 H Blood Pressure Mean 96 Blood Pressure Source Monitor Blood Pressure Position Semi-Fowlers Blood Pressure Location Left Arm Pulse Ox 96 96 93 Oxygen Delivery Method Room Air Room Air Room Air 11/30/23 09:19 Temperature Temperature Source Pulse Rate Pulse Strength Normal (2+) Respiratory Rate Respiratory Effort Respiratory Depth Respiratory Pattern Blood Pressure Blood Pressure Mean Blood Pressure Source Blood Pressure Position Blood Pressure Location Pulse Ox Oxygen Delivery Method Weight Weight: 158 lb 4.67 oz Body Mass Index (BMI) 24.0 Physical Exam Const alert Constitutional Narrative: Oriented to person and the year and knows she is in the hospital. Can not remember what day she came to the hospital. Able to answer questions about her hx pretty well. Tells me she has 3 sons but, none of them live close. she is pleasant and making good eye contact. General Appearance: cooperative and well kempt HEENT head/scalp atraumatic Eyes PERRL, EOMs intact bilaterally, conjunctivae normal and no scleral icterus Eyes Narrative: No DC from the eyes and no mattering of the eyelashes General Eye: normal appearance of both eyes Neck supple, no JVD, thyroid normal, No nodes and no carotid bruits Chest Chest: symmetrical chest wall rise Resp normal respiratory effort, normal air movement, no use of accessory muscles and clear to auscultation bilaterally Effort and Inspection: able to speak in complete sentences Cardio S1 normal heart sound, S2 normal heart sound, no murmurs, no rub and no gallops Cardio Narrative: She is in AF with controlled VR. GI normal to inspection, nondistended, normoactive bowel sounds, soft to palpation and non-tender GI Narrative: No guarding with palpation. Extremity no clubbing, cyanosis or edema and no calf tenderness Skin no wounds, no jaundice and no petechiae General Skin Exam: no breakdown Rashes: no rashes Neuro CN's II-XII intact bilaterally, moves all extremities, no focal motor deficits and no sensory deficits noted Sensorium / Orientation: alert Psych cooperative, affect normal and speech normal Psych Narrative: she is having trouble with short term memory......I suspect this is due to recent trauma, change of venue from home to hospital and then to rehab and to narcotics for pain control. Appearance: grossly normal, appropriate and well kempt Attitude: calm Activity / Motor Behavior: appropriate eye contact Assessment & Plan Assessment/Plan (1) Physical debility: (2) Fall: QUALIFIERS: Encounter type: subsequent encounter Qualified Code(s): W19.XXXD - Unspecified fall, subsequent encounter (3) Acute pain due to trauma: (4) Right clavicle fracture: QUALIFIERS: Encounter type: subsequent encounter Clavicle location: unspecified part of clavicle Fracture type: closed Fracture alignment: nondisplaced (5) Fracture of right superior pubic ramus: QUALIFIERS: Encounter type: subsequent encounter Fracture type: closed (6) Fracture of right inferior pubic ramus: QUALIFIERS: Encounter type: subsequent encounter Fracture type: closed (7) Persistent atrial fibrillation: (8) History of permanent cardiac pacemaker placement: (9) Dementia: QUALIFIERS: Dementia type: unspecified type Dementia severity: unspecified severity Dementia behavioral or psychological symptom: without behavioral, psychotic, or mood disturbance or anxiety Qualified Code(s): F03.90- Unspecified dementia, unspecified severity, without behavioral disturbance, psychotic disturbance, mood disturbance, and anxiety (10) Chronic anticoagulation: PLAN: on Eliquis LT PLAN: Plan PLAN PT for gait stability OT for ADL's ST for evaluation Analgesics as needed Bowel protocol Fall precautions Assess for Anxiety/Depression GI prophylaxis -not on any prophylaxis at the current time. She does have a history of a GI bleed but she has no nausea, no vomiting and no epigastric pain or heartburn at this time. DVT prophylaxis - she is on apixaban for chronic AF Follow up with Dr. Cai, cardiology and Dr. Arreola following DC from Rehab All labs done during her hospital stay and for the past year were reviewed. Will try transitioning to Tramadol for pain since she is having increased difficulties with memory and thought processes since she has been on Oxycodone. Straight cath for a UA since she is retaining and had a Walker while in the hospital. PVR last night was 306 but, PVR recently 0. Charges/Coding Visit Charges Inpatient E&M: 38098 Init Hosp L2 11/30/23 8327 <Electronically signed by Daniella Travis DO> Cosigner Signature (if applicable): CC: Dr. Elizabeth Cai MD; Dr. Daniella Travis DO~ Signed ADDENDUM by Dr. Daniella Travis DO on 11/30/23 at 1403 Addendum She is on Linzess as an OP PRN for constipation. Will need to monitor closely for constipation since she is now on pain medication and less mobile than usual. Not paddy the hospital pharmacy has this medication so we may have to have her fire assistant bring it in from home. For now will continue Metamucil at HS and schedule 1 senna/docusate BID Check a hemoccult stool in light of recent trauma/stress and hx of GIB in the past. Verified activity with Dr. Arreola. WBAT on the LE's and NWB on the RUE due to the clavicle fx. 11/30/23 1403<Electronically signed by Daniella Travis DO> Cosigner Signature (if applicable): cc: Dr. Elizabeth Cai MD; Dr. Daniella Travis DO ~* Signed Work Phone: 1(192) 944-434703-26-2024 Consult note Author Fauzia Jackson November 29, 2023 1:46pm Note Date/Time November 29, 2023 1:4 6pm [facility] Medical Records Department [address] [place] [address] Counseling Note - Pharmacy 11/29/23 1346 MR#: [id number] Acct: [id number] Name: MARISA SANTIAGO Rep #:[id number] : 1935 88 From: Fauzia Jackson PCP: Dr. Elizabeth Cai MD Status:A DM IN Y [place] [facility] [id number] [place] Med Reconciliation Pharmacy Service has performed discharge medication reconciliation for this patient. The patient's discharge medication list was reviewed for discrepancies and discrepancies were resolved. Medications at Discharge Home Medications hjqjbkod-guq-HL 0.4 mg-calcium 162 mg-iron 18 df-vaugxll-xxgutq tablet 1 ea PO DAILY supplement 06/03/19 acetaminophen 325 mg capsule (Tylenol) 650 mg PO ONCE PRN Pain 10/07/22 apixaban 2.5 mg tablet (Eliquis) 2.5 mg PO BID blood thinner #180 tabs 11/24/22 budesonide 90 mcg/actuation breath activated powder inhaler 1 inh inhalation BIDPRN shortness of breath or wheezing 03/14/23 biotin 500 mcg capsule 1 mg PO DAILY supplement 03/25/23 donepezil 5 mg tablet 5 mg PO QHS memory #90 tabs 04/07/23 metoprolol tartrate 25 mg tablet 25 mg PO BID BP #180 tabs 06/20/23 ferrous sulfate 325 mg (65 mg iron) tablet (FeroSul) See Rx Instructions .Route .COMPLEX supplement #90 TABLETS 06/27/23 escitalopram oxalate 5 mg tablet 5 mg PO DAILY anxiety #90 tabs 07/18/23 meclizine 25 mg tablet 25 mg PO BID PRN dizziness #90 tabs 07/18/23 levothyroxine 112 mcg tablet 112 mcg PO DAILY thyroid 11/09/23 acetaminophen 500 mg tablet 1,000 mg (2 x 500 mg) PO Q8 #0 tabs 11/29/23 oxycodone 5 mg tablet 5 mg PO Q4H PRN PRN PAIN 4-10 #0 tabs 11/29/23 psyllium husk (aspartame) 3 gram oral powder packet (Daily Fiber (psyllium-aspartame)) 1 packet PO DAILY #0 ea 11/29/23 11/29/23 1346 <Electronically signed by Fauzia Jackson> Date _ Fauzia Jackson Cosigner Signature (if applicable): Date CC: ~ Signed Work Phone: 1(831) 601-392103-26-2024 Discharge summary Author Liliam Barrera November 29, 2023 1:03pm Note Date/Time November 29, 2023 12: 50pm [facility] Medical Records Department [facility] [place] [address] Discharge Summary 11/29/23 1247 MR#: [id number] Acct: [id number] Name: MARISA SANTIAGO Rep #:[id number] : 1935 88 From: Liliam Barrera DO PCP: Dr. Elizabeth Cai MD Status:A DM IN [place] [facility] [id number] Providers Date of Admission: 11/27/23 Date of Discharge: 11/29/23 Primary Care Physician: Dr. Elizabeth Cai MD Consultations 11/27/23 20:07 Consult: Cardiology Routine Consulting Provider: Rosa Yadav Reason for Consult: Pacemaker check EMERGENT Consult: No MD Notified: Yes Date Notified: 11/28/23 Time Notified: 08:12 Method of Notification: Text Consult: Orthopedics Routine Consulting Provider: Edgar Lopez Reason for Consult: Hip fracture EMERGENT Consult: Yes MD Notified: Yes Date Notified: 11/27/23 Time Notified: 19:48 Method of Notification: ED Physician Initiated Reason For Visit: HIP FRACTURE Diagnosis Discharge Diagnosis (1) Clavicle fracture: Status: Acute Code(s): S42.009A - Fracture of unspecified part of unspecified clavicle, initial encounter for closed fracture (2) Fall: Status: Acute Code(s): W19.XXXA - Unspecified fall, initial encounter (3) Fracture, pelvis closed: Status: Acute Code(s): S32.9XXA - Fracture of unspecified parts of lumbosacral spine and pelvis, initial encounter for closed fracture (4) Fracture of right superior pubic ramus: Status: Acute Code(s): S32.511A - Fracture of superior rim of right pubis, initial encounter for closedfracture (5) Fracture of right inferior pubic ramus: Status: Acute Code(s): S32.591A - Other specified fracture of right pubis, initial encounter for closedfracture Plan Medications at Discharge Home Medications eayeqmre-rax-HI 0.4 mg-calcium 162 mg-iron 18 hq-fsiberg-jyrcbh tablet 1 ea PO DAILY supplement 06/03/19 acetaminophen 325 mg capsule (Tylenol) 650 mg PO ONCE PRN Pain 10/07/22 apixaban 2.5 mg tablet (Eliquis) 2.5 mg PO BID blood thinner #180 tabs 03/22/23 budesonide 90 mcg/actuation breath activated powder inhaler 1 inh inhalation BIDPRN shortness of breath or wheezing 03/14/23 biotin 500 mcg capsule 1 mg PO DAILY supplement 03/25/23 donepezil 5 mg tablet 5 mg PO QHS memory #90 tabs 04/07/23 metoprolol tartrate 25 mg tablet 25 mg PO BID BP #180 tabs 06/20/23 ferrous sulfate 325 mg (65 mg iron) tablet (FeroSul) See Rx Instructions .Route .COMPLEX supplement #90 TABLETS 06/27/23 escitalopram oxalate 5 mg tablet 5 mg PO DAILY anxiety #90 tabs 07/18/23 meclizine 25 mg tablet 25 mg PO BID PRN dizziness #90 tabs 07/18/23 levothyroxine 112 mcg tablet 112 mcg PO DAILY thyroid 11/09/23 acetaminophen 500 mg tablet 1,000 mg (2 x 500 mg) PO Q8 #0 tabs 11/29/23 oxycodone 5 mg tablet 5 mg PO Q4H PRN PRN PAIN 4-10 #0 tabs 11/29/23 psyllium husk (aspartame) 3 gram oral powder packet (Daily Fiber (psyllium-aspartame)) 1 packet PO DAILY #0 ea 11/29/23 Hospital Course Operations None Procedures EKG and - (Pacemaker interrogation/CT brain/CT cervical spine/CT pelvis/shoulderx-ray/hip and pelvic x-ray) Summary of Care Provided Minutes Spent on Discharge: 38 Hospital Course: Mrs. Gong is an 88-year-old white female who presented to the emergency department on 11/27/2023 after suffering from a fall from standing height on the evening of presentation. She does have a history of complete heart block with permanent pacemaker placement but does not feel that she had any loss of consciousness and that her fall was more mechanical. Her pacemaker was interrogated and showed no arrhythmias or events. After her fall she suffered from right shoulder pain and was unable to move her right lower extremity. Imaging in the emergency department as well as CT of the pelvis showed right superior and inferior pubic ramus fracture along with a nondisplaced right clavicular fracture. Orthopedic surgery evaluated the patient and did not recommend any surgical intervention with outpatient follow- up 2 weeks after discharge. Her right upper extremity is to be in a sling as needed and her right lower extremity is weightbearing as tolerated. She was placed on p.o. scheduled Tylenol and as needed p.o. and IV narcotics for pain and physical and Occupational Therapy were consulted. She was seen by both physical and Occupational Therapy who recommended ongoing rehab and rehab physician was contacted and accepted her for admission. During her hospital stay she was maintained on scheduled Tylenol with as needed oxycodone. Her blood pressure medicine was held as the oxycodone did drive her blood pressure down some and wedid not want to cause hypotension. Heart rates were stable in the 70s. Her hemoglobin did drop slightly from admission however seems to be stable overall and was 10.3 on admission. I do recommend a repeat CBC be done in about 5 days along with a repeat BMP. She will need follow-up with Dr. Arreola in 1 to 2 weeks following discharge to ensure appropriate healing and function. She was able to be discharged in stable condition with adequate pain control on 11/29/2023 to rehab unit. Discharge diagnoses: Fall Generalized weakness Acute right clavicular fracture Acute right superior and inferior pubic ramus fracture History of sick sinus syndrome status post pacemaker History of complete heart block status post pacemaker History of atrial fibrillation History of stroke Hypothyroidism Hypertension Chronic anemia Thrombocytopenia History of microscopic colitis Depression Mild cognitive impairment/dementia Physical Exam Const alert, oriented x3, no apparent distress, average body habitus, no limitations, healthy appearing and well nourished Constitutional Narrative: Very pleasant elderly, white female, sitting up in a chair at the bedside, watching television, appears younger than stated age, nontoxic, appears comfortable at this time General Appearance: cooperative, comfortable, well kempt and well developed Orientation / Consciousness: awake, oriented to person, oriented to place and oriented to time Exam Limitations: no limitations HEENT normocephalic, head/scalp atraumatic and moist oral mucous membranes; Negative for hearing grossly normal bilaterally HEENT Narrative: Mild to moderate hearing loss, Mallampati 2, no thrush Eyes PERRL, EOMs intact bilaterally and conjunctivae normal Neck no lymphadenopathy and supple Neck Narrative: Trachea midline Resp normal respiratory effort, no retractions, no use of accessory muscles and clearto auscultation bilaterally Auscultation: Negative for rales, rhonchi or wheezes Cardio regular rate, regular rhythm, S1 normal heart sound, S2 normal heart sound, no murmurs, no rub, no gallops and no clicks GI normal to inspection, nondistended, normoactive bowel sounds, soft to palpation and non-tender Extremity no clubbing, cyanosis or edema Extremity Narrative: Ecchymosis at right shoulder and upper chest region in the area of the clavicle Skin no rashes or lesions noted, no wounds, skin turgor normal and no jaundice Skin Narrative: Scattered ecchymosis, skin is thin Neuro oriented x3, CN's II-XII intact bilaterally and no focal motor deficits Neuro Narrative: Difficulty with movement of her right upper extremity and right lower extremity due to pain but no motor deficit Speech: speech normal Psych affect normal Psych Narrative: Very pleasant, interacts appropriately Weight / BMI Weight Weight: 69.2 kg Body Mass Index (BMI) 23.1 ABG / Lab / Microbiology Data 11/29/23 06:45 11/29/23 06:45 Laboratory: Laboratory Results - last 24 hr 11/29/23 06:45: WBC 7.5, RBC 3.45 L, Hgb 10.3 L, Hct 33.0 L, MCV 95.7, MCH 29.9,MCHC 31.2 L, RDW Std Deviation 45.7 H, RDW Coeff of Radha 13.1, Plt Count 145 L, MPV 11.0, Immature Gran % (Auto) 0.400, Neut % (Auto) 73.6 H, Lymph % (Auto) 9.5L, [place] % (Auto) 7.2, Eos % (Auto) 8.4 H, Baso % (Auto) 0.9, Absolute Neuts (auto) 5.5, Absolute Lymphs (auto) 0.71 L, Nucleated RBC % 0, Sodium 141, Potassium 3.9, Chloride 107, Carbon Dioxide 27.0, Anion Gap 7, BUN 31 H, Creatinine 0.94, Estim Creat Clear Calc 42.53, Est GFR (MDRD) Af Amer 72, Est GFR (MDRD) Non-Af 60, BUN/Creatinine Ratio 32.8 H, Glucose 103, Calcium 8.6 D/C Instructions Discharge Diet: No restrictions Discharge Activity: Return to Normal Activity Meaningful Use Info Meaningful Use Diagnoses (Choose all that apply): None applicable Discharge Plan Admission Admit Date/Time: 11/27/23 19:39 Primary Reason for Your Visit: Fall from standing height Attending Provider: Liliam Barrera Primary Care Provider: Elizabeth Cai Consulting Providers: Edgar Lopez; Rosa Yadav Instructions Additional Instructions / Restrictions: 1. Repeat CBC and BMP in 5 to 7 days 2. Weightbearing as tolerated on right lower extremity 3. Right arm in a sling for comfort Discharge Orders/Prescriptions Prescriptions: New acetaminophen 500 mg Tablet 1,000 mg PO Q8 Qty: 0 0RF oxycodone 5 mg Tablet 5 mg PO Q4H PRN PRN (Reason: PAIN 4-10) Qty: 0 0RF Daily Fiber (psyllium-aspart) 3 gram Powder In Packet 1 packet PO DAILY Qty: 0 0RF Held acetaminophen [Tylenol] 325 mg capsule 650 mg PO ONCE PRN (Reason: Pain) Hold Instructions: at discharge from rehab Rx Instructions: as needed for pain metoprolol tartrate 25 mg tablet 25 mg PO BID Qty: 180 3RF Hold Instructions: Resume on 12/02/23. No Action budesonide 90 mcg/actuation aerosol powdr breath activated 1 inh inhalation BID PRN (Reason: shortness of breath or wheezing) escitalopram oxalate 5 mg tablet 5 mg PO DAILY Qty: 90 1RF meclizine 25 mg tablet 25 mg PO BID PRN (Reason: dizziness) Qty: 90 1RF gg-gbh-FG-Zt-Ze-ktegfqt-lutein 1 EACH tablet 1 ea PO DAILY Patient Comments: vitamin biotin 500 mcg capsule 1 mg PO DAILY levothyroxine 112 mcg tablet 112 mcg PO DAILY Eliquis 2.5 mg tablet 2.5 mg PO BID Qty: 180 3RF Hold Instructions: Resume on 11/17/23. donepezil 5 mg tablet 5 mg PO QHS Qty: 90 3RF ferrous sulfate [FeroSul] 325 mg (65 mg iron) tablet See Rx Instructions .ROUTE .COMPLEX Qty: 90 3RF Dose Instruction: take 1 tablet by mouth once daily Rx Instructions: take 1 tablet by mouth once daily Referrals / Follow Up: Elizabeth Cai MD [Primary Care Provider] - See Referral Note (1 week after discharge from rehab) Miguel Angel Arreola MD [Med Staff - Active Staff] - Within 2 Weeks Disposition Disposition (needs filled in before D/C Order can be placed): Inpatient Rehab Unit/Facility Charges/Coding Visit Charges Inpatient E&M: 28962 Disch Hosp >30min 11/29/23 1303 <Electronically signed by Liliam Barrera DO> Cosigner Signature (if applicable): CC: Dr. Elizabeth Cai MD; Dr. Liliam Barrera DO; Dr. Miguel Angel Arreola MD~ Signed Work Phone: [phone]) 393-340303-25-2024 Progress note Author Liliam Barrera November 28, 2023 4:31pm Note Date/Time November 28, 2023 4:3 1pm [facility] Medical Records Department [address] [place] [address] Progress Note - Hospitalist 11/28/23 1620 MR#: [id number] Acct: [id number] Name: MARISA SANTIAGO Rep #:[id number] : 1935 88 From: Liliam Barrera DO PCP: Dr. Elizabeth Cai MD Status:A DM IN Location[place] [facility] [place] [id number] Reason for Visit Reason for Visit: Fall from standing height Subjective Subjective Mrs. Gong is an 88-year-old white female who presented to the emergency department on 11/27/2023 after suffering from a fall from standing height on the evening of presentation. She does have a history of complete heart block with permanent pacemaker placement but does not feel that she had any loss of consciousness and that her fall was more mechanical. Her pacemaker was interrogated and showed no arrhythmias or events. After her fall she suffered from right shoulder pain and was unable to move her right lower extremity. Imaging in the emergency department as well as CT of the pelvis showed right superior and inferior pubic ramus fracture along with a nondisplaced right clavicular fracture. Orthopedic surgery evaluated the patient and did not recommend any surgical intervention with outpatient follow- up 2 weeks after discharge. Her right upper extremity is to be in a sling as needed and her right lower extremity is weightbearing as tolerated. She was placed on p.o. scheduled Tylenol and as needed p.o. and IV narcotics for pain and physical and Occupational Therapy were consulted. At the time evaluation she was complaining of acute pain however she was just been medicated. She does indicate that her pain was better earlier when she hadher previous dose of oxycodone. She lives alone prior to presentation and does realize she will need to go somewhere for rehab prior to going home. Objective Data Objective Data Vital Signs: Vital Signs Temp Pulse Resp BP Pulse Ox O2 Del Method 98.1 F 70 18 102/55 L 94 Room Air 11/28/23 14:56 11/28/23 14:56 11/28/23 14:56 11/28/23 14:56 11/28/23 14:56 11/28/23 14:56 Oxygen Delivery Method Room Air Weight: 69.2 kg Body Mass Index (BMI) 23.1 Intake & Output: Intake and Output for Last 24 Hours 11/26/23 11/27/23 11/28/23 23:59 23:59 23:59 Intake Total 200 / 200 120 / 120 Output Total 350 / 350 Balance 200 / 200 -230 / -230 Lab / Micro Data 11/28/23 06:05 11/28/23 06:05 Labs: Laboratory Results - last 24 hr 11/27/23 17:51: WBC 9.9, RBC 4.01 L, Hgb 12.2, Hct 38.7, MCV 96.5, MCH 30.4, MCHC 31.5 L, RDW Std Deviation 45.7 H, RDW Coeff of Radha 12.8, Plt Count 208, MPV 10.3, Immature Gran % (Auto) 1.400 H, Neut % (Auto) 81.5 H, Lymph % (Auto) 8.0 L, [place] % (Auto) 6.3, Eos % (Auto) 2.1, Baso % (Auto) 0.7, Absolute Neuts (auto) 8.0 H, Absolute Lymphs (auto) 0.79 L, Nucleated RBC % 0, Sodium 139, Potassium 4.2, Chloride 108 H, Carbon Dioxide 26.0, Anion Gap 5, BUN 25 H, Creatinine 0.85, Estim Creat Clear Calc 47.04, Est GFR (MDRD) Af Amer 82, Est GFR (MDRD) Non-Af 68, BUN/Creatinine Ratio 29.6 H, Glucose 125 H, Calcium 8.9 11/28/23 06:05: WBC 7.8, RBC 3.56 L, Hgb 10.5 L, Hct 34.1 L, MCV 95.8, MCH 29.5,MCHC 30.8 L, RDW Std Deviation 46.3 H, RDW Coeff of Radha 12.9, Plt Count 168, MPV10.7, Immature Gran % (Auto) 0.400, Neut % (Auto) 77.7 H, Lymph % (Auto) 11.1 L,[place] % (Auto) 6.3, Eos % (Auto) 3.6, Baso % (Auto) 0.9, Absolute Neuts (auto) 6.0, Absolute Lymphs (auto) 0.86, Nucleated RBC % 0, PT 17.2 H, INR 1.4, Sodium 141, Potassium 4.1, Chloride 108 H, Carbon Dioxide 29.0, Anion Gap 4 L, BUN 26 H, Creatinine 0.97, Estim Creat Clear Calc 41.22, Est GFR (MDRD) Af Amer 70, Est GFR (MDRD) Non-Af 58 L, BUN/Creatinine Ratio 26.9 H, Glucose 107 H, Calcium 8.7,Phosphorus 3.7, Magnesium 2.2, Total Bilirubin 0.50, Direct Bilirubin 0.17, AST 20, ALT 23, Alkaline Phosphatase 52, Total Protein 6.2 L, Albumin 3.0 L, Globulin 3.2, Albumin/Globulin Ratio 0.9, TSH 0.83 Radiography Diagnostic Testing: Radiology Impression Brain CT 11/27/23 17:26 IMPRESSION: There are no acute findings. Chronic involutional changes of the brain. Electronically Signed: Rubén Casarez MD at 18:17 EDT , Cervical Spine CT 11/27/23 17:26 IMPRESSION: Degenerative changes of the cervical spine. There are no acute findings. Electronically Signed: Rubén Casarez MD at 18:39 EDT , Pelvis CT 11/27/23 17:30 IMPRESSION: Fracture of the right sacral ala. Fracture of the right acetabulum. Fractures right superior and inferior pubic ramus. Electronically Signed: Rubén Casarez MD at 18:30 EDT , Shoulder X-Ray 11/27/23 17:50 IMPRESSION: 1. Nondisplaced fracture of the distal right clavicle. 2. Degenerative findings of the right shoulder. Electronically Signed: Rubén Casarez MD at 18:16 EDT , Hip/Pelvis X-Ray 11/27/23 18:00 IMPRESSION: 1. Fracture of the right superior and inferior pubic ramus. 2. Degenerative findings in the left hip. Electronically Signed: Rubén Casarez MD at 18:23 EDT , Physical Exam Const alert, oriented x3, no apparent distress, average body habitus and well nourished Constitutional Narrative: Very pleasant elderly, white female, lying in bed, appears younger than stated age, nontoxic, appears mildly uncomfortable HEENT head/scalp atraumatic and moist oral mucous membranes HEENT Narrative: Dentition is fair for age, Mallampati is 2, no thrush Head and Scalp: normocephalic Resp normal respiratory effort, no retractions, no use of accessory muscles and clearto auscultation bilaterally Auscultation: Negative for rales, rhonchi or wheezes Cardio regular rate, regular rhythm, S1 normal heart sound, S2 normal heart sound, no murmurs, no rub, no gallops and no clicks GI normal to inspection, nondistended, normoactive bowel sounds, soft to palpation and non-tender Extremity no clubbing, cyanosis or edema Extremity Narrative: Ecchymosis at right shoulder and upper chest region in the area of the clavicle,ecchymosis at the right upper thigh Neuro oriented x3 and no focal motor deficits Neuro Narrative: Difficulty with movement of her right upper extremity and right lower extremity due to pain but no motor deficit Speech: speech normal Psych affect normal Psych Narrative: Very pleasant, interacts appropriately Assessment & Plan Assessment/Plan (1) Clavicle fracture: (2) Fall: (3) Fracture, pelvis closed: (4) Fracture of right superior pubic ramus: (5) Fracture of right inferior pubic ramus: PLAN: Plan Fall/generalized weakness -PT and OT following -Recommend rehab at discharge -Plan is for discharge tomorrow as long as she remains medically stable to acuterehab -Management and social work following Acute right clavicular fracture -Nonweightbearing through that arm -Sling as needed for pain -Nonoperative intervention -Outpatient follow-up in 1 to 2 weeks with orthopedic surgery after discharge Acute right superior and inferior pubic ramus fracture -Continued scheduled Tylenol -As needed oxycodone -Patient does have as needed morphine for breakthrough currently -If she seems to be using this will increase oxycodone dose -Weightbearing as tolerated through right lower extremity -PT and OT are following -Discharge to rehab as long as patient remains medically stable on 11/29/2023 Sick sinus syndrome/atrial fibrillation/history of complete heart block status post pacemaker placement -Pacer interrogated without any signs of arrhythmia or dysfunction -Continue Eliquis History of stroke -Continue Eliquis 2.5 mg daily Hypothyroidism -Continue home levothyroxine Hypertension -Restart home atenolol Chronic anemia -Baseline seems to fluctuate -12.2 on admission and down to 10.5 today without any signs of acute bleeding -Repeat CBC in a.m. -Continue home iron supplementation -Cystic change from admission may be related to volume and bleeding being on Eliquis and status post fall with notable bruising History of microscopic colitis -No signs of acute GI bleeding -Monitor clinically Depression -Continue home escitalopram Mild cognitive impairment/dementia -Continue home donepezil DVT prophylaxis -Continue home Eliquis CODE STATUS -Full code is verified admission Charges/Coding Visit Charges Inpatient E&M: 04644 Subs Hosp L2 11/28/23 1630 <Electronically signed by Liliam Barrera DO> Cosigner Signature (if applicable): CC: ~ Signed Work Phone: 1(418) 273-580103-25-2024 Progress note Author Miguel Angel Arreola November 28, 2023 4:10pm Note Date/Time November 28, 2023 4:1 0pm [facility] Medical Records Department [address] [place] [address] Progress Note - Orthopedic 11/28/23 1608 MR#: [id number] Acct: [id number] Name: MARISA SANTIAGO Rep #:[id number] : 1935 88 From: Miguel Angel Arreola MD PCP: Dr. Elizabeth Cai MD Status:A DM IN Location: [facility] [id number] Subjective Subjective PAD 1 patient in pain mostly the right hip, wondering how to call the nurse. no other concerns noted. Objective Data Objective Data Vital Signs: Vital Signs Temp Pulse Resp BP Pulse Ox O2 Del Method 98.1 F 70 18 102/55 L 94 Room Air 11/28/23 14:56 11/28/23 14:56 11/28/23 14:56 11/28/23 14:56 11/28/23 14:56 11/28/23 14:56 Oxygen Delivery Method Room Air Weight: 152 lb 8.958 oz Body Mass Index (BMI) 23.1 Intake & Output: Intake and Output for Last 24 Hours 11/26/23 11/27/23 11/28/23 23:59 23:59 23:59 Intake Total 200 / 200 120 / 120 Output Total 350 / 350 Balance 200 / 200 -230 / -230 Lab / Micro Data 11/28/23 06:05 11/28/23 06:05 Labs: Laboratory Results - last 24 hr 11/27/23 17:51: WBC 9.9, RBC 4.01 L, Hgb 12.2, Hct 38.7, MCV 96.5, MCH 30.4, MCHC 31.5 L, RDW Std Deviation 45.7 H, RDW Coeff of Radha 12.8, Plt Count 208, MPV10.3, Immature Gran % (Auto) 1.400 H, Neut % (Auto) 81.5 H, Lymph % (Auto) 8.0 L, [place] % (Auto) 6.3, Eos % (Auto) 2.1, Baso % (Auto) 0.7, Absolute Neuts (auto) 8.0 H, Absolute Lymphs (auto) 0.79 L, Nucleated RBC % 0, Sodium 139, Potassium 4.2, Chloride 108 H, Carbon Dioxide 26.0, Anion Gap 5, BUN 25 H, Creatinine 0.85, Estim Creat Clear Calc 47.04, Est GFR (MDRD) Af Amer 82, Est GFR (MDRD) Non-Af 68, BUN/Creatinine Ratio 29.6 H, Glucose 125 H, Calcium 8.9 11/28/23 06:05: WBC 7.8, RBC 3.56 L, Hgb 10.5 L, Hct 34.1 L, MCV 95.8, MCH 29.5,MCHC 30.8 L, RDW Std Deviation 46.3 H, RDW Coeff of Radha 12.9, Plt Count 168, MPV10.7, Immature Gran % (Auto) 0.400, Neut % (Auto) 77.7 H, Lymph % (Auto) 11.1 L,[place] % (Auto) 6.3, Eos % (Auto) 3.6, Baso % (Auto) 0.9, Absolute Neuts (auto) 6.0, Absolute Lymphs (auto) 0.86, Nucleated RBC % 0, PT 17.2 H, INR 1.4, Sodium 141, Potassium 4.1, Chloride 108 H, Carbon Dioxide 29.0, Anion Gap 4 L, BUN 26 H, Creatinine 0.97, Estim Creat Clear Calc 41.22, Est GFR (MDRD) Af Amer 70, Est GFR (MDRD) Non-Af 58 L, BUN/Creatinine Ratio 26.9 H, Glucose 107 H, Calcium 8.7,Phosphorus 3.7, Magnesium 2.2, Total Bilirubin 0.50, Direct Bilirubin 0.17, AST 20, ALT 23, Alkaline Phosphatase 52, Total Protein 6.2 L, Albumin 3.0 L, Globulin 3.2, Albumin/Globulin Ratio 0.9, TSH 0.83 Radiography Diagnostic Testing: Radiology Impression Brain CT 11/27/23 17:26 IMPRESSION: There are no acute findings. Chronic involutional changes of the brain. Electronically Signed: Rubén Casarez MD at 18:17 EDT Reading Location ID and State: [facility] / [place] , Service support , Cervical Spine CT 11/27/23 17:26 IMPRESSION: Degenerative changes of the cervical spine. There are no acute findings. Electronically Signed: Rubén Casarez MD at 18:39 EDT , Pelvis CT 11/27/23 17:30 IMPRESSION: Fracture of the right sacral ala. Fracture of the right acetabulum. Fractures right superior and inferior pubic ramus. Electronically Signed: Rubén Casarez MD at 18:30 EDT , Shoulder X-Ray 11/27/23 17:50 IMPRESSION: 1. Nondisplaced fracture of the distal right clavicle. 2. Degenerative findings of the right shoulder. Electronically Signed: Rubén Casarez MD at 18:16 EDT , Hip/Pelvis X-Ray 11/27/23 18:00 IMPRESSION: 1. Fracture of the right superior and inferior pubic ramus. 2. Degenerative findings in the left hip. Electronically Signed: Rubén Casarez MD at 18:23 EDT , Physical Exam Const alert and well nourished General Appearance: cooperative Extremity Extremity Narrative: closed R clavicle injury, mild bruising. closed right hip injury. NVI to ax nerve and mru /ain/pin as well as to the right foot, wiggles toes, normal sens, no knee pain. Assessment & Plan Assessment/Plan (1) Clavicle fracture: PLAN: PAD 1 R clavicle # - sling as needed, non op. WBAT R LE, though will be difficult given debility and clavicle fracture, plus prior KAY. OK to FU the patient as outpatient. Ortho signing off, call with concerns. (2) Fracture, pelvis closed: (3) Fall: 11/28/23 1610 <Electronically signed by Miguel Angel Arreola MD> Cosigner Signature (if applicable): CC: ~ Signed Work Phone: [phone]) 953-876103-24-2024 History and physical note Author Edgar Lopez November 27, 2023 7:50pm Note Date/Time November 27, 2023 7:4 2pm [facility] Medical Records Department [address] [place] [address] H&P Exam - Hospitalist 11/27/231932 MR#: [id number] Acct: [id number] Name: MARISA SANTIAGO Rep #:[id number] : 1935 88 From: Edgar Lopez MD PCP: Dr. Elizabeth Cai MD Status:A DM IN [place] [id number] HPI - General General Date of Admission: 11/27/23 Date of Service: 11/27/23 Chief Complaint: Acute fall HPI Narrative MARISA SANTIAGO, is a 88 F who presents to the ED after falling from standing height this evening. She has a past medical history of CVA, hypothyroidism, persistent atrial fibrillation, complete heart block s/p permanent pacemaker, nonrheumatic mitral valve insufficiency, essential hypertension. She fell from ground-level today around 530, and developed pain on the right shoulder and also was not able to move her right thigh. X-ray and CT pelvis in the ED showed insufficiency and right superior inferior pubic rami fracture along with nondisplaced right clavicle fracture. Orthopedic opinion was sought,no surgical intervention is indicated She is now being admitted for rehabilitation as she lives by herself and would not be able to take care of her activities of daily living at home. [facility] Medical History (Updated 11/27/23 @ 18:56 by ELIJAH Jorgensen) Abnormal urinalysis Acquired hypothyroidism Allergies Anemia Anxiety and depression Arthritis Asthma Atrial fibrillation BRBPR (bright red blood per rectum) Cardiology follow-up encounter Carpal tunnel syndrome Closed head injury Complete heart block Concussion Delayed wound healing Dementia Edema leg Essential (primary) hypertension Fall Flu vaccine need Fracture of metacarpal base, first, right hand, closed Fracture of right inferior pubic ramus Fracture of right superior pubic ramus GI bleed Goiter Hearing problem History of GI bleed History of IBS History of stress test Hyperlipidemia Hypertension Hypothyroidism Malnutrition Memory impairment Microscopic colitis Microscopic colitis Mild intermittent asthma Non-smoker Nonrheumatic mitral valve insufficiency Open wound of left ring finger Osteoarthritis Pacemaker lead malfunction Parathyroid disorder Periorbital edema of left eye Persistent atrial fibrillation Personal history of colonic polyps Post-menopausal Rheumatoid arthritis Right clavicle fracture Sick sinus syndrome Stroke/cerebrovascular accident Thyroid storm Ulcer of left lower extremity with fat layer exposed Ulcer of right lower extremity with fat layer exposed Venous insufficiency 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 Wears glasses Home Medications [id number] 0.4 mg-calcium 162 mg-iron 18 gq-trkqgot-wkseub tablet 1 ea PO DAILY supplement 06/03/19 [History Last Taken 04/25/21 08:31] acetaminophen 325 mg capsule (Tylenol) 650 mg PO ONCE PRN Pain 10/07/22 [History Last Taken Unknown] apixaban 2.5 mg tablet (Eliquis) 2.5 mg PO BID blood thinner #180 tabs 11/24/22 [Rx Last Taken Unknown] budesonide 90 mcg/actuation breath activated powder inhaler 1 inh inhalation BIDPRN shortness of breath or wheezing 03/14/23 [History Last Taken Unknown] biotin 500 mcg capsule 1 mg PO DAILY supplement 03/25/23 [History Last Taken Unknown] donepezil 5 mg tablet 5 mg PO QHS memory #90 tabs 04/07/23 [Rx Last Taken Unknown] metoprolol tartrate 25 mg tablet 25 mg PO BID BP #180 tabs 06/20/23 [Rx Last Taken Unknown] ferrous sulfate 325 mg (65 mg iron) tablet (FeroSul) See Rx Instructions .Route .COMPLEX supplement #90 TABLETS 06/27/23 [Rx Last Taken Unknown] escitalopram oxalate 5 mg tablet 5 mg PO DAILY anxiety #90 tabs 07/18/23 [Rx Last Taken Unknown] meclizine 25 mg tablet 25 mg PO BID PRN dizziness #90 tabs 07/18/23 [Rx Last Taken Unknown] levothyroxine 112 mcg tablet 112 mcg PO DAILY thyroid 11/09/23 [History Last Taken Unknown] Allergy/AdvReac Type Severity Reaction Status Date / Time Environmental Allergies: Allergy Mild sneezing Verified 11/27/23 16:57 Uncoded latex AdvReac Itching Verified 11/27/23 16:57 sulfamethoxazole AdvReac Nausea Verified 11/27/23 16:57 [From Bactrim] trimethoprim [From Bactrim] AdvReac Nausea Verified 11/27/23 16:57 Family History Father CAD (coronary artery disease) Brother Cancer Leukemia Brother Epilepsy Mother Colon cancer Other CVA (cerebral vascular accident) Diabetes Surgical History (Updated 11/17/23 @ 00:01 by Katrin Perez) H/O thyroidectomy H/O thyroidectomy History of knee replacement History of permanent cardiac pacemaker placement History of right hip replacement Social History household members: none Smoking Status: Never smoker alcohol intake: never substance use type: does not use caffeine: Yes Type: tea Number of servings: 1 what type of physical activity do you participate in: other details: Rundown Review of Systems ROS Unobtainable: Denies due to encephalopathy, due to endotracheal tube, due tomental condition, due to mental status or other Constitutional Constitutional: Denies anorexia, change in weight, chills, fatigue, fever(s), malaise, night sweats, weakness or other Eyes Eyes: Denies blurry vision, change in eye color, change in vision, discharge from eye(s), double vision, erythema, eye pain, loss of vision or other ENT HEENT: Denies abnormal hearing, dysphagia, ear pain, epistaxis, headache(s), hearing loss, nasal congestion, nasal discharge, post nasal drip, sinus pressure, sore throat or other Cardiovascular Cardiovascular: Denies chest pain, claudication, dyspnea on exertion, edema, lightheadedness, orthopnea, palpitations, paroxysmal nocturnal dyspnea, rapid heart rate, syncope or other Respiratory/Chest Respiratory/Chest: Denies cough, dyspnea, excessive phlegm production, hemoptysis, productive cough, shortness of breath at rest, shortness of breath with exertion, wheezing or other Gastrointestinal Gastrointestinal: Denies abdominal pain, coffee ground emesis, constipation, diarrhea, dyspepsia, hematemesis, hematochezia, loose stools, melena, nausea, vomiting or other Musculoskeletal Musculoskeletal: Reports joint pain, joint stiffness and joint swelling; Denies arthralgias, back pain, myalgias, neck pain or other Neurologic Neurologic: Denies abnormal gait, abnormal speech, confusion, disequilibrium, dizziness, focal weakness, headache(s), numbness, paresthesias, seizure-like activity, seizures, syncope, tingling, tremor(s) or other Psychiatric Psychiatric: Denies anxiety, depression, homicidal ideation, suicidal ideation or other Endocrine Endocrinology: Denies change in body appearance, cold intolerance, excessive sweating, heat intolerance, polydipsia, polyuria or other Hematologic/Lymphatic Hematologic/Lymphatic: Denies anemia, easy bleeding, easy bruising, lymphadenopathy or other Allergic/Immunologic Allergic/Immunologic: Denies rhinitis, hives, eczemia, asthma or other Vital Signs Vital Signs Vital Signs: 11/27/23 16:56 11/27/23 16:56 11/27/23 18:56 Temperature 97.6 F L 97.6 F L Temperature Source Oral Pulse Rate 70 70 Respiratory Rate 16 17 Respiratory Effort Normal Non-Labored Respiratory Depth Normal Respiratory Pattern Normal Blood Pressure 133/59 H 139/73 H Blood Pressure Mean 83 95 Pulse Ox 95 95 Oxygen Delivery Method Room Air Room Air Weight Weight: 161 lb 13.109 oz Body Mass Index (BMI) 24.5 Physical Exam Const alert and oriented x3 Constitutional Narrative: States pain is bearable, worsens with movement HEENT normocephalic, head/scalp atraumatic, hearing grossly normal bilaterally, moist oral mucous membranes, oropharynx normal and dentition normal Eyes PERRL Neck no lymphadenopathy and supple Resp normal respiratory effort and no retractions Cardio regular rate, regular rhythm, S1 normal heart sound, S2 normal heart sound, no murmurs, no rub, no gallops, no clicks and no JVD GI normal to inspection, nondistended, normoactive bowel sounds, soft to palpation,non-tender, non-distended and hepatosplenomegaly Extremity Extremity Narrative: Not able to move her right hip joint due to pain. Localized tenderness present over her right clavicle. Neuro oriented x3 Psych affect normal Results Medical Records Data Attestation: I reviewed the patient's medical records Lab / Micro Data Attestation: I reviewed the patient's lab results. 11/27/23 17:51 11/27/23 17:51 Labs: Laboratory Results - last 24 hr 11/27/23 17:51: WBC 9.9, RBC 4.01 L, Hgb 12.2, Hct 38.7, MCV 96.5, MCH 30.4, MCHC 31.5 L, RDW Std Deviation 45.7 H, RDW Coeff of Radha 12.8, Plt Count 208, MPV10.3, Immature Gran % (Auto) 1.400 H, Neut % (Auto) 81.5 H, Lymph % (Auto) 8.0 L, [place] % (Auto) 6.3, Eos % (Auto) 2.1, Baso % (Auto) 0.7, Absolute Neuts (auto) 8.0 H, Absolute Lymphs (auto) 0.79 L, Nucleated RBC % 0, Sodium 139, Potassium 4.2, Chloride 108 H, Carbon Dioxide 26.0, Anion Gap 5, BUN 25 H, Creatinine 0.85, Estim Creat Clear Calc 47.04, Est GFR (MDRD) Af Amer 82, Est GFR (MDRD) Non-Af 68, BUN/Creatinine Ratio 29.6 H, Glucose 125 H, Calcium 8.9 Imaging Radiology Impression Brain CT 11/27/23 17:26 IMPRESSION: There are no acute findings. Chronic involutional changes of the brain. Electronically Signed: Rubén Casarez MD at 18:17 EDT , Cervical Spine CT 11/27/23 17:26 IMPRESSION: Degenerative changes of the cervical spine. There are no acute findings. Electronically Signed: Rubén Casarez MD at 18:39 EDT , Pelvis CT 11/27/23 17:30 IMPRESSION: Fracture of the right sacral ala. Fracture of the right acetabulum. Fractures right superior and inferior pubic ramus. Electronically Signed: Rubén Casarez MD at 18:30 EDT , Shoulder X-Ray 11/27/23 17:50 IMPRESSION: 1. Nondisplaced fracture of the distal right clavicle. 2. Degenerative findings of the right shoulder. Electronically Signed: Rubén Casarez MD at 18:16 EDT , Hip/Pelvis X-Ray 11/27/23 18:00 IMPRESSION: 1. Fracture of the right superior and inferior pubic ramus. 2. Degenerative findings in the left hip. Electronically Signed: Rubén Casarez MD at 18:23 EDT , Assessment & Plan Assessment/Plan (1) Clavicle fracture: PLAN: Plan 88-year-old female with past medical history of A-fib, complete heart block s/p permanent pacemaker placement, mild dementia, prior GI bleed, prior CVA, presents to the ED following a fall and right hip fracture with clavicular fracture. She is being admitted for further inpatient management and for placement. #Multiple fractures following fall: -Orthopedic consult in the morning -Pain control with Tylenol -Will increase to opioids if the pain is not tolerable0 #Complete heart block s/p permanent pacemaker in place: Will order for a pacemaker check given the fall to rule out any dysfunction. #Prior CVA: Continue Eliquis 2.5 mg twice daily #Dementia: Continue donepezil 5 mg daily #Iron deficiency anemia: Continue ferrous sulfate 65 mg daily #Hypothyroidism: Continue levothyroxine 100 mcg #Hypertension: Hold beta-krystina in the setting of fall right now #DVT: High risk, she is already on Eliquis 2.5 mg we will continue the same, SCD Charges/Coding Visit Charges Inpatient E&M: 01888 Init Hosp L2 11/27/23 1950 <Electronically signed by Edgar Lopez MD> Cosigner Signature (if applicable): CC: Dr. Edgar Lopez MD; Dr. Elizabeth Cai MD~ Signed Work Phone: [phone] Discharge summary Author Feng Loomis November 27, 2023 7:49pm Note Date/Time November 27, 2023 6:4 7pm [facility] Medical Records Department [address] [place] [address] Emergency Department Summary 11/27/23 MR#: [id number] Acct: [id number] Name: MARISA SANTIAGO Rep #:[id number] : 1935 88 From: Feng Loomis DO PCP: Dr. Elizabeth Cai MD Status:A DM IN [place] [facility] [id number] HPI <ELIJAH Jorgensen - Last Filed: 11/27/23 18:56> History of Present Illness Chief Complaint: Fall Narrative Narrative: Patient is a 88-year-old female with history of dementia, atrial fibrillation onEliquis, hyperlipidemia, history of stroke who presents the emergency departmentafter mechanical fall. Patient lives alone, a neighbor does come and assist herwhen needed. Patient was walking trying to get up 1 step into her kitchen when she fell landing on her right side. Patient states she was unable to get up andhad to call the ambulance. Patient is unsure if she struck her head or not. Patient denies any recent illnesses. Patient remembers falling. [facility] <ELIJAH Jorgensen - Last Filed: 11/27/23 18:56> [facility] Medical History (Updated 11/27/23 @ 18:56 by ELIJAH Jorgensen) Abnormal urinalysis Acquired hypothyroidism Allergies Anemia Anxiety and depression Arthritis Asthma Atrial fibrillation BRBPR (bright red blood per rectum) Cardiology follow-up encounter Carpal tunnel syndrome Closed head injury Complete heart block Concussion Delayed wound healing Dementia Edema leg Essential (primary) hypertension Fall Flu vaccine need Fracture of metacarpal base, first, right hand, closed Fracture of right inferior pubic ramus Fracture of right superior pubic ramus GI bleed Goiter Hearing problem History of GI bleed History of IBS History of stress test Hyperlipidemia Hypertension Hypothyroidism Malnutrition Memory impairment Microscopic colitis Microscopic colitis Mild intermittent asthma Non-smoker Nonrheumatic mitral valve insufficiency Open wound of left ring finger Osteoarthritis Pacemaker lead malfunction Parathyroid disorder Periorbital edema of left eye Persistent atrial fibrillation Personal history of colonic polyps Post-menopausal Rheumatoid arthritis Right clavicle fracture Sick sinus syndrome Stroke/cerebrovascular accident Thyroid storm Ulcer of left lower extremity with fat layer exposed Ulcer of right lower extremity with fat layer exposed Venous insufficiency 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 Wears glasses Home Medications [id number] 0.4 mg-calcium 162 mg-iron 18 bi-hayhopx-vvsini tablet 1 ea PO DAILY supplement 06/03/19 [History Last Taken 04/25/21 08:31] acetaminophen 325 mg capsule (Tylenol) 650 mg PO ONCE PRN Pain 10/07/22 [History Last Taken Unknown] apixaban 2.5 mg tablet (Eliquis) 2.5 mg PO BID blood thinner #180 tabs 11/24/22 [Rx Last Taken Unknown] budesonide 90 mcg/actuation breath activated powder inhaler 1 inh inhalation BIDPRN shortness of breath or wheezing 03/14/23 [History Last Taken Unknown] biotin 500 mcg capsule 1 mg PO DAILY supplement 03/25/23 [History Last Taken Unknown] donepezil 5 mg tablet 5 mg PO QHS memory #90 tabs 04/07/23 [Rx Last Taken Unknown] metoprolol tartrate 25 mg tablet 25 mg PO BID BP #180 tabs 06/20/23 [Rx Last Taken Unknown] ferrous sulfate 325 mg (65 mg iron) tablet (FeroSul) See Rx Instructions .Route .COMPLEX supplement #90 TABLETS 06/27/23 [Rx Last Taken Unknown] escitalopram oxalate 5 mg tablet 5 mg PO DAILY anxiety #90 tabs 07/18/23 [Rx Last Taken Unknown] meclizine 25 mg tablet 25 mg PO BID PRN dizziness #90 tabs 07/18/23 [Rx Last Taken Unknown] levothyroxine 112 mcg tablet 112 mcg PO DAILY thyroid 11/09/23 [History Last Taken Unknown] Allergy/AdvReac Type Severity Reaction Status Date / Time Environmental Allergies: Allergy Mild sneezing Verified 11/27/23 16:57 Uncoded latex AdvReac Itching Verified 11/27/23 16:57 sulfamethoxazole AdvReac Nausea Verified 11/27/23 16:57 [From Bactrim] trimethoprim [From Bactrim] AdvReac Nausea Verified 11/27/23 16:57 Family History Father CAD (coronary artery disease) Brother Cancer Leukemia Brother Epilepsy Mother Colon cancer Other CVA (cerebral vascular accident) Diabetes Surgical History (Updated 11/17/23 @ 00:01 by Katrin Perez) H/O thyroidectomy H/O thyroidectomy History of knee replacement History of permanent cardiac pacemaker placement History of right hip replacement Social History household members: none Smoking Status: Never smoker alcohol intake: never substance use type: does not use caffeine: Yes Type: tea Number of servings: 1 what type of physical activity do you participate in: other details: [employer] ROS <ELIJAH Jorgensen - Last Filed: 11/27/23 18:56> ROS ED ROS Narrative Constitutional: Negative for fever, chills, weight loss, weakness Eyes: Negative for vision loss, vision change, double vision ENT: Negative for any sore throat, ear pain, congestion Cardiovascular: Negative for any chest pain, tightness, palpitations Respiratory: Negative for any cough, sputum production, hemoptysis, dyspnea, dyspnea on exertion, orthopnea Gastrointestinal: Negative for any abdominal pain, nausea, vomiting, diarrhea, constipation, blood in stool, blood in vomit : Negative for any urinary frequency, dysuria, retention, blood in urine Muscle skeletal: Negative for any neck pain, back pain. Positive for pelvic pain, right shoulder pain Neurological: Negative for any headache, syncope, dizziness Skin: Negative for any rashes, itching, abrasions, lacerations Psychiatric: Negative for any depression, anxiety, stress, suicidal ideation, homicidal ideation Hematologic: Negative for any excessive bruising, easy bleeding EXAM <ELIJAH Jorgensen - Last Filed: 11/27/23 18:56> Physical Exam Narrative Exam Narrative: Vital signs reviewed. HEET: Head normocephalic atraumatic, TMs clear bilaterally. Posterior pharynx is clear, moist mucous membranes. Nares clear bilaterally. Pupils are equal round reactive to light. Negative for any hemotympanum or septal hematoma. Neck: Supple with no lymphadenopathy or tenderness. No signs of meningismus. Cardiac: Regular rate and rhythm no murmurs gallops or rubs, equal peripheral pulses bilaterally. Respiratory: Lungs clear to auscultation bilaterally. No chest tenderness. Abdomen: Soft, nontender, nondistended. No abdominal bruit or pulsatile masses. No hepatosplenomegaly Extremities:patient is able to flex and extend at the knees bilaterally. Patient is having difficulty to warp picker her right leg, any sort of movement to the right leg she has severe pain to the right groin. Patient does have pain with palpation to the right clavicular area as well as the right shoulder. Decreased range of motion. Neuro: Cranial nerves II through XII intact, no focal neurological deficits. Skin: Clean dry and intact with no rash, purpura, petechiae, vesicles or pustules. Backs/flank: No CVA tenderness, no midline spinal tenderness, no deformity. Psych: Normal mood and affect. No SI, HI or acute psychosis. Const Vital Signs: 11/27/23 16:56 11/27/23 16:56 Temperature 97.6 F L Temperature Source Oral Pulse Rate 70 Respiratory Rate 16 Respiratory Effort Normal Non-Labored Respiratory Depth Normal Respiratory Pattern Normal Blood Pressure 133/59 H Blood Pressure Mean 83 Pulse Ox 95 Oxygen Delivery Method Room Air Room Air <Dr. Feng Loomis DO - Last Filed: 11/27/23 19:49> Physical Exam Const Vital Signs: 11/27/23 16:56 11/27/23 16:56 Temperature 97.6 F L Temperature Source Oral Pulse Rate 70 Respiratory Rate 16 Respiratory Effort Normal Non-Labored Respiratory Depth Normal Respiratory Pattern Normal Blood Pressure 133/59 H Blood Pressure Mean 83 Pulse Ox 95 Oxygen Delivery Method Room Air Room Air [facility] <ELIJAH Jorgensen - Last Filed: 11/27/23 18:56> [facility] Lab Data Labs: Laboratory Results - last 24 hr 11/27/23 17:51 WBC 9.9 RBC 4.01 L Hgb 12.2 Hct 38.7 MCV 96.5 MCH 30.4 MCHC 31.5 L RDW Std Deviation 45.7 H RDW Coeff of Radha 12.8 Plt Count 208 MPV 10.3 Immature Gran % (Auto) 1.400 H Neut % (Auto) 81.5 H Lymph % (Auto) 8.0 L [place] % (Auto) 6.3 Eos % (Auto) 2.1 Baso % (Auto) 0.7 Absolute Neuts (auto) 8.0 H Absolute Lymphs (auto) 0.79 L Nucleated RBC % 0 Sodium 139 Potassium 4.2 Chloride 108 H Carbon Dioxide 26.0 Anion Gap 5 BUN 25 H Creatinine 0.85 Estim Creat Clear Calc 47.04 Est GFR (MDRD) Af Amer 82 Est GFR (MDRD) Non-Af 68 BUN/Creatinine Ratio 29.6 H Glucose 125 H Calcium 8.9 Radiography Diagnostic Testing: Clinical Impression(s) from Imaging Studies Brain CT 11/27/23 17:26 IMPRESSION: There are no acute findings. Chronic involutional changes of the brain. Electronically Signed: Rubén Casarez MD at 18:17 EDT , Cervical Spine CT 11/27/23 17:26 IMPRESSION: Degenerative changes of the cervical spine. There are no acute findings. Electronically Signed: Rubén Casarez MD at 18:39 EDT , Pelvis CT 11/27/23 17:30 IMPRESSION: Fracture of the right sacral ala. Fracture of the right acetabulum. Fractures right superior and inferior pubic ramus. Electronically Signed: Rubén Casarez MD at 18:30 EDT , Shoulder X-Ray 11/27/23 17:50 IMPRESSION: 1. Nondisplaced fracture of the distal right clavicle. 2. Degenerative findings of the right shoulder. Electronically Signed: Rubén Casarez MD at 18:16 EDT , Hip/Pelvis X-Ray 11/27/23 18:00 IMPRESSION: 1. Fracture of the right superior and inferior pubic ramus. 2. Degenerative findings in the left hip. Electronically Signed: Rubén Casarez MD at 18:23 EDT , Treatment and Re-Evaluation :: Patient appears to be in no obvious respiratory distress, patient presents to the emerged part with complaints of right sided hip pain, right shoulder pain. Differential diagnosis includes however is not limited to: Right hip fracture, pelvis fracture, right hip contusion, shoulder fracture, shoulder dislocation, concussion, intracranial bleeding. Patient did receive some basic laboratory values, CBC was unremarkable, chemistry was mostly unremarkable and unchanged. Patient's shoulder x-ray interpreted by ER physician shows nondisplaced fractures of the distal right clavicle. Degenerative findings of the shoulder. Patient CT scan of the brain and cervical spine were unremarkable. No acute fracture or intracranial bleeding. CT scan of the pelvis shows a fracture of the right sacral ala, fracture of the right acetabulum, fractures right superior and inferior pubic ramus. Secondary to these fractures, and Walker will be placed. I spoke with the patient, offered analgesic pain medicine, she states as long she does not move she is not in pain. I do believe the patient needs to be admitted to hospital, she lives alone, she cannot ambulate and she has no one to care for her. I reached out to the hospitalist who is agreement. All questions answered, patient stable for admission. <Dr. Feng Loomis, DO - Last Filed: 11/27/23 19:49> [facility] Narrative Medical decision making narrative: Patient appears to be in no obvious respiratory distress, patient presents to the emerged part with complaints of right sided hip pain, right shoulder pain. Differential diagnosis includes however is not limited to: Right hip fracture, pelvis fracture, right hip contusion, shoulder fracture, shoulder dislocation, concussion, intracranial bleeding. Patient did receive some basic laboratory values, CBC was unremarkable, chemistry was mostly unremarkable and unchanged. Patient's shoulder x-ray interpreted by ER physician shows nondisplaced fractures of the distal right clavicle. Degenerative findings of the shoulder. Patient CT scan of the brain and cervical spine were unremarkable. No acute fracture or intracranial bleeding. CT scan of the pelvis shows a fracture of the right sacral ala, fracture of the right acetabulum, fractures right superior and inferior pubic ramus. Secondary to these fractures, and Walker will be placed. I spoke with the patient, offered analgesic pain medicine, she states as long she does not move she is not in pain. I do believe the patient needs to be admitted to hospital, she lives alone, she cannot ambulate and she has no one to care for her. I reached out to the hospitalist who is agreement. All questions answered, patient stable for admission. 88-year-old female presenting with right shoulder pain and right hip pain. She had a mechanical fall at home. She is on Eliquis. She is able to ambulate. CTbrain and cervical spine were negative. Lab workup was unremarkable. X-rays ofthe right hip on my interpretation shows superior and inferior pubic rami fracture. Radiology interprets this and agrees. X-rays of the right shoulder show a distal clavicular fracture on my interpretation and radiology interprets this and agrees. CT of the pelvis was obtained and shows fracture of the right sacral eileen, right acetabulum, right superior and inferior pubic ramus. Discussed with orthopedics who states the patient can stay here at [place] and she will likely need placement into facility as she is not able to ambulate and also has a broken clavicle which prevents her from using a walker, cane, crutches at this point. Patient amenable to this. She mentions admission. Impression: 1. Fall 2. Right clavicle fracture 3. Right superior pubic rami fracture 4. Right inferior pubic rami fracture 5. Sacral alae fracture 6. Right acetabular fracture Lab Data Attestation: I reviewed the patient's lab results. Labs: Laboratory Results - last 24 hr 11/27/23 17:51 WBC 9.9 RBC 4.01 L Hgb 12.2 Hct 38.7 MCV 96.5 MCH 30.4 MCHC 31.5 L RDW Std Deviation 45.7 H RDW Coeff of Radha 12.8 Plt Count 208 MPV 10.3 Immature Gran % (Auto) 1.400 H Neut % (Auto) 81.5 H Lymph % (Auto) 8.0 L [place] % (Auto) 6.3 Eos % (Auto) 2.1 Baso % (Auto) 0.7 Absolute Neuts (auto) 8.0 H Absolute Lymphs (auto) 0.79 L Nucleated RBC % 0 Sodium 139 Potassium 4.2 Chloride 108 H Carbon Dioxide 26.0 Anion Gap 5 BUN 25 H Creatinine 0.85 Estim Creat Clear Calc 47.04 Est GFR (MDRD) Af Amer 82 Est GFR (MDRD) Non-Af 68 BUN/Creatinine Ratio 29.6 H Glucose 125 H Calcium 8.9 Radiography Diagnostic Testing: Clinical Impression(s) from Imaging Studies Brain CT 11/27/23 17:26 IMPRESSION: There are no acute findings. Chronic involutional changes of the brain. Electronically Signed: Rubén Casarez MD at 18:17 EDT , Cervical Spine CT 11/27/23 17:26 IMPRESSION: Degenerative changes of the cervical spine. There are no acute findings. Electronically Signed: Rubén Casarez MD at 18:39 EDT , Pelvis CT 11/27/23 17:30 IMPRESSION: Fracture of the right sacral ala. Fracture of the right acetabulum. Fractures right superior and inferior pubic ramus. Electronically Signed: Rubén Casarez MD at 18:30 EDT , Shoulder X-Ray 11/27/23 17:50 IMPRESSION: 1. Nondisplaced fracture of the distal right clavicle. 2. Degenerative findings of the right shoulder. Electronically Signed: Rubén Casarez MD at 18:16 EDT , Hip/Pelvis X-Ray 11/27/23 18:00 IMPRESSION: 1. Fracture of the right superior and inferior pubic ramus. 2. Degenerative findings in the left hip. Electronically Signed: Rubén Casarez MD at 18:23 EDT Reading Location ID and State: [facility] [place] / [place] , Service support , Discharge Plan Dx/Rx/DC Orders Clinical Impression: Fracture, pelvis closed, Fall, Clavicle fracture Disposition Disposition: Acute Care Hospital [facility] What to do if you have Problems For any increased pain, shortness of breath, bleeding, nausea or vomiting, chestpain, or any unexpected problems, contact your Primary Care Provider. Call [facility] ([phone]) or report to the closest Emergency Room. Call 911 if necessary. 11/27/231948 <Electronically signed by Feng Loomis DO> Cosigner Signature (if applicable): 11/27/231855 <Electronically signed by Curtis NAVA> CC: Dr. Elizabeth Cai MD ~ Signed Work Phone: [phone] Consult note Author [facility] November 27, 2023 6:42pm Note Date/Time November 27, 2023 6:4 2pm [facility] System Medical Records Department [address] [place] [address] Consultation - Orthopedics 11/27/23 1840 MR#: [id number] Acct: [id number] Name: MARISA SANTIAGO Rep #:[id number] : 1935 88 From: Miguel Angel Arreola MD PCP: Dr. Elizabeth Cai MD Status:R EG ER Location: ED HPI Consult Data Date of Consult: 11/27/23 HPI Narrative HPI Narrative: MARISA SANTIAGO, is a 88 F who presents with a ground level fall, called by the ED today at 638pm. Xray and CT pelvis shows insufficency fracture R sup and inf pubic rami around well fixed KAY and non displaced R clavicle fracture. Unable to ambulate. [facility] Medical History (Updated 11/27/23 @ 18:41 by Miguel Angel Arreola MD) Abnormal urinalysis Acquired hypothyroidism Allergies Anemia Anxiety and depression Arthritis Asthma Atrial fibrillation BRBPR (bright red blood per rectum) Cardiology follow-up encounter Carpal tunnel syndrome Closed head injury Complete heart block Concussion Delayed wound healing Dementia Edema leg Essential (primary) hypertension Fall Flu vaccine need Fracture of metacarpal base, first, right hand, closed Fracture of right inferior pubic ramus Fracture of right superior pubic ramus GI bleed Goiter Hearing problem History of GI bleed History of IBS History of stress test Hyperlipidemia Hypertension Hypothyroidism Malnutrition Memory impairment Microscopic colitis Microscopic colitis Mild intermittent asthma Non-smoker Nonrheumatic mitral valve insufficiency Open wound of left ring finger Osteoarthritis Pacemaker lead malfunction Parathyroid disorder Periorbital edema of left eye Persistent atrial fibrillation Personal history of colonic polyps Post-menopausal Rheumatoid arthritis Right clavicle fracture Sick sinus syndrome Stroke/cerebrovascular accident Thyroid storm Ulcer of left lower extremity with fat layer exposed Ulcer of right lower extremity with fat layer exposed Venous insufficiency 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 Wears glasses Home Medications egmcnvad-ccf-NP 0.4 mg-calcium 162 mg-iron 18 il-qlcylpj-hweduj tablet 1 ea PO DAILY supplement 06/03/19 [History Last Taken 04/25/21 08:31] acetaminophen 325 mg capsule (Tylenol) 650 mg PO ONCE PRN Pain 10/07/22 [History Last Taken Unknown] apixaban 2.5 mg tablet (Eliquis) 2.5 mg PO BID blood thinner #180 tabs 11/24/22 [Rx Last Taken Unknown] budesonide 90 mcg/actuation breath activated powder inhaler 1 inh inhalation BIDPRN shortness of breath or wheezing 03/14/23 [History Last Taken Unknown] biotin 500 mcg capsule 1 mg PO DAILY supplement 03/25/23 [History Last Taken Unknown] donepezil 5 mg tablet 5 mg PO QHS memory #90 tabs 04/07/23 [Rx Last Taken Unknown] metoprolol tartrate 25 mg tablet 25 mg PO BID BP #180 tabs 06/20/23 [Rx Last Taken Unknown] ferrous sulfate 325 mg (65 mg iron) tablet (FeroSul) See Rx Instructions .Route .COMPLEX supplement #90 TABLETS 06/27/23 [Rx Last Taken Unknown] escitalopram oxalate 5 mg tablet 5 mg PO DAILY anxiety #90 tabs 07/18/23 [Rx Last Taken Unknown] meclizine 25 mg tablet 25 mg PO BID PRN dizziness #90 tabs 07/18/23 [Rx Last Taken Unknown] levothyroxine 112 mcg tablet 112 mcg PO DAILY thyroid 11/09/23 [History Last Taken Unknown] Allergy/AdvReac Type Severity Reaction Status Date / Time Environmental Allergies: Allergy Mild sneezing Verified 11/27/23 16:57 Uncoded latex AdvReac Itching Verified 11/27/23 16:57 sulfamethoxazole AdvReac Nausea Verified 11/27/23 16:57 [From Bactrim] trimethoprim [From Bactrim] AdvReac Nausea Verified 11/27/23 16:57 Family History Father CAD (coronary artery disease) Brother Cancer Leukemia Brother Epilepsy Mother Colon cancer Other CVA (cerebral vascular accident) Diabetes Surgical History (Updated 11/17/23 @ 00:01 by Katrin Perez) H/O thyroidectomy H/O thyroidectomy History of knee replacement History of permanent cardiac pacemaker placement History of right hip replacement Social History household members: none Smoking Status: Never smoker alcohol intake: never substance use type: does not use caffeine: Yes Type: tea Number of servings: 1 what type of physical activity do you participate in: other details: [employer] Vital Signs Vital Signs Vital Signs: 11/27/23 16:56 11/27/23 16:56 Temperature 97.6 F L Temperature Source Oral Pulse Rate 70 Respiratory Rate 16 Respiratory Effort Normal Non-Labored Respiratory Depth Normal Respiratory Pattern Normal Blood Pressure 133/59 H Blood Pressure Mean 83 Pulse Ox 95 Oxygen Delivery Method Room Air Room Air Weight Weight: 161 lb 13.109 oz Body Mass Index (BMI) 24.5 Lab / Micro Data 11/27/23 17:51 11/27/23 17:51 Labs: Laboratory Results - last 24 hr 11/27/23 17:51: WBC 9.9, RBC 4.01 L, Hgb 12.2, Hct 38.7, MCV 96.5, MCH 30.4, MCHC 31.5 L, RDW Std Deviation 45.7 H, RDW Coeff of Radha 12.8, Plt Count 208, MPV10.3, Immature Gran % (Auto) 1.400 H, Neut % (Auto) 81.5 H, Lymph % (Auto) 8.0 L, [place] % (Auto) 6.3, Eos % (Auto) 2.1, Baso % (Auto) 0.7, Absolute Neuts (auto) 8.0 H, Absolute Lymphs (auto) 0.79 L, Nucleated RBC % 0, Sodium 139, Potassium 4.2, Chloride 108 H, Carbon Dioxide 26.0, Anion Gap 5, BUN 25 H, Creatinine 0.85, Estim Creat Clear Calc 47.04, Est GFR (MDRD) Af Amer 82, Est GFR (MDRD) Non-Af 68, BUN/Creatinine Ratio 29.6 H, Glucose 125 H, Calcium 8.9 Imaging Radiology Impression Brain CT 11/27/23 17:26 IMPRESSION: There are no acute findings. Chronic involutional changes of the brain. Electronically Signed: Rubén Casarez MD at 18:17 EDT , Pelvis CT 11/27/23 17:30 IMPRESSION: Fracture of the right sacral ala. Fracture of the right acetabulum. Fractures right superior and inferior pubic ramus. Electronically Signed: Rubén Casarez MD at 18:30 EDT , Shoulder X-Ray 11/27/23 17:50 IMPRESSION: 1. Nondisplaced fracture of the distal right clavicle. 2. Degenerative findings of the right shoulder. Electronically Signed: Rubén Casarez MD at 18:16 EDT , Hip/Pelvis X-Ray 11/27/23 18:00 IMPRESSION: 1. Fracture of the right superior and inferior pubic ramus. 2. Degenerative findings in the left hip. Electronically Signed: Rubén Casarez MD at 18:23 EDT Reading Location ID and State: [facility] / [place] , Service support , Assessment & Plan Assessment/Plan (1) Fracture of right inferior pubic ramus: PLAN: 88 yr F with R rami fractures and non displaced R clavicle fracture. Recommend WBAT R LE and sling R arm for comfort, both non operative issues. Admit under the hospitalist, will see the patient tomorrow. (2) Fracture of right superior pubic ramus: (3) Right clavicle fracture: 11/27/23 184 <Electronically signed by Miguel Angel Arreola MD> Cosigner Signature (if applicable): CC: Dr. Elizabeth Cai MD~ Signed Work Phone: [phone] [facility] November 27, 2023 7:49pm Note Date/Time November 27, 2023 6:4 7pm [facility] Medical Records Department [address] [place], [place] [id number] Emergency Department Summary 11/27/23 MR#: [id number] Acct: [id number] Name: MARISA SANTIAGO Rep #:[id number] : 1935 88 From: Feng Loomis DO PCP: Dr. Elizabeth Cai MD Status:A DM IN Location: [place] [id number] HPI <ELIJAH Jorgensen - Last Filed: 11/27/23 18:56> History of Present Illness Chief Complaint: Fall Narrative Narrative: Patient is a 88-year-old female with history of dementia, atrial fibrillation onEliquis, hyperlipidemia, history of stroke who presents the emergency departmentafter mechanical fall. Patient lives alone, a neighbor does come and assist herwhen needed. Patient was walking trying to get up 1 step into her kitchen when she fell landing on her right side. Patient states she was unable to get up andhad to call the ambulance. Patient is unsure if she struck her head or not. Patient denies any recent illnesses. Patient remembers falling. PFS <ELIJAH Jorgensen - Last Filed: 11/27/23 18:56> [facility] Medical History (Updated 11/27/23 @ 18:56 by ELIJAH Jorgensen) Abnormal urinalysis Acquired hypothyroidism Allergies Anemia Anxiety and depression Arthritis Asthma Atrial fibrillation BRBPR (bright red blood per rectum) Cardiology follow-up encounter Carpal tunnel syndrome Closed head injury Complete heart block Concussion Delayed wound healing Dementia Edema leg Essential (primary) hypertension Fall Flu vaccine need Fracture of metacarpal base, first, right hand, closed Fracture of right inferior pubic ramus Fracture of right superior pubic ramus GI bleed Goiter Hearing problem History of GI bleed History of IBS History of stress test Hyperlipidemia Hypertension Hypothyroidism Malnutrition Memory impairment Microscopic colitis Microscopic colitis Mild intermittent asthma Non-smoker Nonrheumatic mitral valve insufficiency Open wound of left ring finger Osteoarthritis Pacemaker lead malfunction Parathyroid disorder Periorbital edema of left eye Persistent atrial fibrillation Personal history of colonic polyps Post-menopausal Rheumatoid arthritis Right clavicle fracture Sick sinus syndrome Stroke/cerebrovascular accident Thyroid storm Ulcer of left lower extremity with fat layer exposed Ulcer of right lower extremity with fat layer exposed Venous insufficiency 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 Wears glasses Home Medications [id number] 0.4 mg-calcium 162 mg-iron 19 yo-uyoxsps-yrxxxz tablet 1 ea PO DAILY supplement 06/03/19 [History Last Taken 04/25/21 08:31] acetaminophen 325 mg capsule (Tylenol) 650 mg PO ONCE PRN Pain 10/07/22 [History Last Taken Unknown] apixaban 2.5 mg tablet (Eliquis) 2.5 mg PO BID blood thinner #180 tabs 11/24/22 [Rx Last Taken Unknown] budesonide 90 mcg/actuation breath activated powder inhaler 1 inh inhalation BIDPRN shortness of breath or wheezing 03/14/23 [History Last Taken Unknown] biotin 500 mcg capsule 1 mg PO DAILY supplement 03/25/23 [History Last Taken Unknown] donepezil 5 mg tablet 5 mg PO QHS memory #90 tabs 04/07/23 [Rx Last Taken Unknown] metoprolol tartrate 25 mg tablet 25 mg PO BID BP #180 tabs 06/20/23 [Rx Last Taken Unknown] ferrous sulfate 325 mg (65 mg iron) tablet (FeroSul) See Rx Instructions .Route .COMPLEX supplement #90 TABLETS 06/27/23 [Rx Last Taken Unknown] escitalopram oxalate 5 mg tablet 5 mg PO DAILY anxiety #90 tabs 07/18/23 [Rx Last Taken Unknown] meclizine 25 mg tablet 25 mg PO BID PRN dizziness #90 tabs 07/18/23 [Rx Last Taken Unknown] levothyroxine 112 mcg tablet 112 mcg PO DAILY thyroid 11/09/23 [History Last Taken Unknown] Allergy/AdvReac Type Severity Reaction Status Date / Time Environmental Allergies: Allergy Mild sneezing Verified 11/27/23 16:57 Uncoded latex AdvReac Itching Verified 11/27/23 16:57 sulfamethoxazole AdvReac Nausea Verified 11/27/23 16:57 [From Bactrim] trimethoprim [From Bactrim] AdvReac Nausea Verified 11/27/23 16:57 Family History Father CAD (coronary artery disease) Brother Cancer Leukemia Brother Epilepsy Mother Colon cancer Other CVA (cerebral vascular accident) Diabetes Surgical History (Updated 11/17/23 @ 00:01 by Katrin Perez) H/O thyroidectomy H/O thyroidectomy History of knee replacement History of permanent cardiac pacemaker placement History of right hip replacement Social History household members: none Smoking Status: Never smoker alcohol intake: never substance use type: does not use caffeine: Yes Type: tea Number of servings: 1 what type of physical activity do you participate in: other details: [employer] [facility] <ELIJAH Jorgensen - Last Filed: 11/27/23 18:56> [facility] Narrative Constitutional: Negative for fever, chills, weight loss, weakness Eyes: Negative for vision loss, vision change, double vision ENT: Negative for any sore throat, ear pain, congestion Cardiovascular: Negative for any chest pain, tightness, palpitations Respiratory: Negative for any cough, sputum production, hemoptysis, dyspnea, dyspnea on exertion, orthopnea Gastrointestinal: Negative for any abdominal pain, nausea, vomiting, diarrhea, constipation, blood in stool, blood in vomit : Negative for any urinary frequency, dysuria, retention, blood in urine Muscle skeletal: Negative for any neck pain, back pain. Positive for pelvic pain, right shoulder pain Neurological: Negative for any headache, syncope, dizziness Skin: Negative for any rashes, itching, abrasions, lacerations Psychiatric: Negative for any depression, anxiety, stress, suicidal ideation, homicidal ideation Hematologic: Negative for any excessive bruising, easy bleeding EXAM <ELIJAH Jorgensen - Last Filed: 11/27/23 18:56> Physical Exam Narrative Exam Narrative: Vital signs reviewed. HEET: Head normocephalic atraumatic, TMs clear bilaterally. Posterior pharynx is clear, moist mucous membranes. Nares clear bilaterally. Pupils are equal round reactive to light. Negative for any hemotympanum or septal hematoma. Neck: Supple with no lymphadenopathy or tenderness. No signs of meningismus. Cardiac: Regular rate and rhythm no murmurs gallops or rubs, equal peripheral pulses bilaterally. Respiratory: Lungs clear to auscultation bilaterally. No chest tenderness. Abdomen: Soft, nontender, nondistended. No abdominal bruit or pulsatile masses. No hepatosplenomegaly Extremities:patient is able to flex and extend at the knees bilaterally. Patient is having difficulty to warp picker her right leg, any sort of movement to the right leg she has severe pain to the right groin. Patient does have pain with palpation to the right clavicular area as well as the right shoulder. Decreased range of motion. Neuro: Cranial nerves II through XII intact, no focal neurological deficits. Skin: Clean dry and intact with no rash, purpura, petechiae, vesicles or pustules. Backs/flank: No CVA tenderness, no midline spinal tenderness, no deformity. Psych: Normal mood and affect. No SI, HI or acute psychosis. Const Vital Signs: 11/27/23 16:56 11/27/23 16:56 Temperature 97.6 F L Temperature Source Oral Pulse Rate 70 Respiratory Rate 16 Respiratory Effort Normal Non-Labored Respiratory Depth Normal Respiratory Pattern Normal Blood Pressure 133/59 H Blood Pressure Mean 83 Pulse Ox 95 Oxygen Delivery Method Room Air Room Air <Dr. Feng Loomis DO - Last Filed: 11/27/23 19:49> Physical Exam Const Vital Signs: 11/27/23 16:56 11/27/23 16:56 Temperature 97.6 F L Temperature Source Oral Pulse Rate 70 Respiratory Rate 16 Respiratory Effort Normal Non-Labored Respiratory Depth Normal Respiratory Pattern Normal Blood Pressure 133/59 H Blood Pressure Mean 83 Pulse Ox 95 Oxygen Delivery Method Room Air Room Air MDM <Curtis ErvinELIJAH bansal - Last Filed: 11/27/23 18:56> [facility] Lab Data Labs: Laboratory Results - last 24 hr 11/27/23 17:51 WBC 9.9 RBC 4.01 L Hgb 12.2 Hct 38.7 MCV 96.5 MCH 30.4 MCHC 31.5 L RDW Std Deviation 45.7 H RDW Coeff of Radha 12.8 Plt Count 208 MPV 10.3 Immature Gran % (Auto) 1.400 H Neut % (Auto) 81.5 H Lymph % (Auto) 8.0 L [place] % (Auto) 6.3 Eos % (Auto) 2.1 Baso % (Auto) 0.7 Absolute Neuts (auto) 8.0 H Absolute Lymphs (auto) 0.79 L Nucleated RBC % 0 Sodium 139 Potassium 4.2 Chloride 108 H Carbon Dioxide 26.0 Anion Gap 5 BUN 25 H Creatinine 0.85 Estim Creat Clear Calc 47.04 Est GFR (MDRD) Af Amer 82 Est GFR (MDRD) Non-Af 68 BUN/Creatinine Ratio 29.6 H Glucose 125 H Calcium 8.9 Radiography Diagnostic Testing: Clinical Impression(s) from Imaging Studies Brain CT 11/27/23 17:26 IMPRESSION: There are no acute findings. Chronic involutional changes of the brain. Electronically Signed: Rubén Casarez MD at 18:17 EDT , Cervical Spine CT 11/27/23 17:26 IMPRESSION: Degenerative changes of the cervical spine. There are no acute findings. Electronically Signed: Rubén Casarez MD at 18:39 EDT , Pelvis CT 11/27/23 17:30 IMPRESSION: Fracture of the right sacral ala. Fracture of the right acetabulum. Fractures right superior and inferior pubic ramus. Electronically Signed: Rubén Casarez MD at 18:30 EDT , Shoulder X-Ray 11/27/23 17:50 IMPRESSION: 1. Nondisplaced fracture of the distal right clavicle. 2. Degenerative findings of the right shoulder. Electronically Signed: Rubén Casarez MD at 18:16 EDT , Hip/Pelvis X-Ray 11/27/23 18:00 IMPRESSION: 1. Fracture of the right superior and inferior pubic ramus. 2. Degenerative findings in the left hip. Electronically Signed: Rubén Casarez MD at 18:23 EDT , Treatment and Re-Evaluation :: Patient appears to be in no obvious respiratory distress, patient presents to the emerged part with complaints of right sided hip pain, right shoulder pain. Differential diagnosis includes however is not limited to: Right hip fracture, pelvis fracture, right hip contusion, shoulder fracture, shoulder dislocation, concussion, intracranial bleeding. Patient did receive some basic laboratory values, CBC was unremarkable, chemistry was mostly unremarkable and unchanged. Patient's shoulder x-ray interpreted by ER physician shows nondisplaced fractures of the distal right clavicle. Degenerative findings of the shoulder. Patient CT scan of the brain and cervical spine were unremarkable. No acute fracture or intracranial bleeding. CT scan of the pelvis shows a fracture of the right sacral ala, fracture of the right acetabulum, fractures right superior and inferior pubic ramus. Secondary to these fractures, and Walker will be placed. I spoke with the patient, offered analgesic pain medicine, she states as long she does not move she is not in pain. I do believe the patient needs to be admitted to hospital, she lives alone, she cannot ambulate and she has no one to care for her. I reached out to the hospitalist who is agreement. All questions answered, patient stable for admission. <Dr. Feng Loomis, DO - Last Filed: 11/27/23 19:49> [facility] Narrative Medical decision making narrative: Patient appears to be in no obvious respiratory distress, patient presents to the emerged part with complaints of right sided hip pain, right shoulder pain. Differential diagnosis includes however is not limited to: Right hip fracture, pelvis fracture, right hip contusion, shoulder fracture, shoulder dislocation, concussion, intracranial bleeding. Patient did receive some basic laboratory values, CBC was unremarkable, chemistry was mostly unremarkable and unchanged. Patient's shoulder x-ray interpreted by ER physician shows nondisplaced fractures of the distal right clavicle. Degenerative findings of the shoulder. Patient CT scan of the brain and cervical spine were unremarkable. No acute fracture or intracranial bleeding. CT scan of the pelvis shows a fracture of the right sacral ala, fracture of the right acetabulum, fractures right superior and inferior pubic ramus. Secondary to these fractures, and Walker will be placed. I spoke with the patient, offered analgesic pain medicine, she states as long she does not move she is not in pain. I do believe the patient needs to be admitted to hospital, she lives alone, she cannot ambulate and she has no one to care for her. I reached out to the hospitalist who is agreement. All questions answered, patient stable for admission. 88-year-old female presenting with right shoulder pain and right hip pain. She had a mechanical fall at home. She is on Eliquis. She is able to ambulate. CTbrain and cervical spine were negative. Lab workup was unremarkable. X-rays ofthe right hip on my interpretation shows superior and inferior pubic rami fracture. Radiology interprets this and agrees. X-rays of the right shoulder show a distal clavicular fracture on my interpretation and radiology interprets this and agrees. CT of the pelvis was obtained and shows fracture of the right sacral eileen, right acetabulum, right superior and inferior pubic ramus. Discussed with orthopedics who states the patient can stay here at [place] and she will likely need placement into facility as she is not able to ambulate and also has a broken clavicle which prevents her from using a walker, cane, crutches at this point. Patient amenable to this. She mentions admission. Impression: 1. Fall 2. Right clavicle fracture 3. Right superior pubic rami fracture 4. Right inferior pubic rami fracture 5. Sacral alae fracture 6. Right acetabular fracture Lab Data Attestation: I reviewed the patient's lab results. Labs: Laboratory Results - last 24 hr 11/27/23 17:51 WBC 9.9 RBC 4.01 L Hgb 12.2 Hct 38.7 MCV 96.5 MCH 30.4 MCHC 31.5 L RDW Std Deviation 45.7 H RDW Coeff of Radha 12.8 Plt Count 208 MPV 10.3 Immature Gran % (Auto) 1.400 H Neut % (Auto) 81.5 H Lymph % (Auto) 8.0 L [place] % (Auto) 6.3 Eos % (Auto) 2.1 Baso % (Auto) 0.7 Absolute Neuts (auto) 8.0 H Absolute Lymphs (auto) 0.79 L Nucleated RBC % 0 Sodium 139 Potassium 4.2 Chloride 108 H Carbon Dioxide 26.0 Anion Gap 5 BUN 25 H Creatinine 0.85 Estim Creat Clear Calc 47.04 Est GFR (MDRD) Af Amer 82 Est GFR (MDRD) Non-Af 68 BUN/Creatinine Ratio 29.6 H Glucose 125 H Calcium 8.9 Radiography Diagnostic Testing: Clinical Impression(s) from Imaging Studies Brain CT 11/27/23 17:26 IMPRESSION: There are no acute findings. Chronic involutional changes of the brain. Electronically Signed: Rubén Casarez MD at 18:17 EDT , Cervical Spine CT 11/27/23 17:26 IMPRESSION: Degenerative changes of the cervical spine. There are no acute findings. Electronically Signed: Rubén Casarez MD at 18:39 EDT , Pelvis CT 11/27/23 17:30 IMPRESSION: Fracture of the right sacral ala. Fracture of the right acetabulum. Fractures right superior and inferior pubic ramus. Electronically Signed: Rubén Casarez MD at 18:30 EDT , Shoulder X-Ray 11/27/23 17:50 IMPRESSION: 1. Nondisplaced fracture of the distal right clavicle. 2. Degenerative findings of the right shoulder. Electronically Signed: Rubén Casarez MD at 18:16 EDT Reading Location ID and State: [facility] / [place] , Service support , Hip/Pelvis X-Ray 11/27/23 18:00 IMPRESSION: 1. Fracture of the right superior and inferior pubic ramus. 2. Degenerative findings in the left hip. Electronically Signed: Rubén Casarez MD at 18:23 EDT Reading Location ID and State: [facility] / [place] , Service support , Discharge Plan Dx/Rx/DC Orders Clinical Impression: Fracture, pelvis closed, Fall, Clavicle fracture Disposition Disposition: Acute Care Hospital [facility] What to do if you have Problems For any increased pain, shortness of breath, bleeding, nausea or vomiting, chestpain, or any unexpected problems, contact your Primary Care Provider. Call [facility] ([phone]) or report to the closest Emergency Room. Call 911 if necessary. 11/27/23 194 <Electronically signed by Feng Loomis DO> Cosigner Signature (if applicable): 11/27/23 1856 <Electronically signed by Curtis NAVA> CC: Dr. Elizabeth Cai MD ~ Signed Work Phone: 1(777) 804-795703-06-2024 Discharge summary Author Fei Rivera November 09, 2023 9:01am Note Date/Time November 09, 2023 9:01 am [facility] Medical Records Department [address] [place] [address] Instructions for Home/Discharge Instructions 11/09/23 0900 MR#: [id number] Acct: [id number] Name: MARISA SANTIAGO Rep #:[id number] : 1935 88 From: Fei Rivera MD PCP: Dr. Elizabeth Cai MD Status:A DM RHODA Discharge Instructions Diet Discharge Diet: No restrictions (as you feel able. No excessive stretching. No lifting your arm over your head (keep elbow below shoulder level) until seen foryour pacemaker check. Do not lift your elbow away from your side until you are seen for your first visit. Keep the arm sling on if it helps remind you not to lift your arm.) Activity Discharge Activity: May Not Drive May shower in (days): 2 Additional Activity Instructions:: May shower or bathe on [day 3]. Do not scrub the incision or soak in the tub. Just wash with soap and let the water run over the incision. Gently pat dry with towel. Medications: Take your pain medication as directed. Refer to your discharge instruction sheet for a list of medications you are to take. Dressing / Incision Call your doctor if your incision/area has: Continuous Slow Oozing, Sudden Increased Bleeding, Increased Pain/ Swelling, Increased Redness, Foul Smelling Discharge and Swelling at the incision site Call your doctor if you observe: Fever of 101 or Higher, Shortness of breath, Dizziness, Fainting spells, Swelling in the ankles, Chest pain, Prolonged hiccupping and Increased palpitations (irregular heartbeat) Suture Line Care: Avoid Pulling/Pushing and Avoid Pinching/Bending Additional Dressing/Incision Instructions:: When dressing is removed, wash and dry incision. Keep covered with a light bandage if it is rubbing against your clothing. Do not cover the incision with an airtight bandage. Change the bandagedaily. Do not remove steri strips. The strips will fall off on their own. Follow Up Care Please Follow Up With: Fei Rivera MD When: Pacer clinic on November 15 at 1 PM Test Results: Test results from this visit will be discussed in further detail at your follow- up appointment, if applicable. Discharge Plan Admission Admit Date/Time: 11/08/23 14:00 Attending Provider: Fei Rivera Primary Care Provider: Elizabeth Cai Discharge Orders/Prescriptions Prescriptions: Continued Linzess 72 mcg capsule 72 mcg PO PRN PRN (Reason: Constipation) acetaminophen [Tylenol] 325 mg capsule 650 mg PO ONCE PRN (Reason: Pain) Rx Instructions: as needed for pain budesonide 90 mcg/actuation aerosol powdr breath activated 1 inh inhalation BID PRN (Reason: shortness of breath or wheezing) escitalopram oxalate 5 mg tablet 5 mg PO DAILY Qty: 90 1RF meclizine 25 mg tablet 25 mg PO BID PRN (Reason: dizziness) Qty: 90 1RF hu-cso-RH-Gy-Gi-wyzkwmm-lutein 1 EACH tablet 1 ea PO DAILY Patient Comments: vitamin biotin 500 mcg capsule 1 mg PO DAILY levothyroxine 112 mcg tablet 112 mcg PO DAILY donepezil 5 mg tablet 5 mg PO QHS Qty: 90 3RF metoprolol tartrate 25 mg tablet 25 mg PO BID Qty: 180 3RF ferrous sulfate [FeroSul] 325 mg (65 mg iron) tablet See Rx Instructions .ROUTE .COMPLEX Qty: 90 3RF Dose Instruction: take 1 tablet by mouth once daily Rx Instructions: take 1 tablet by mouth once daily Held Eliquis 2.5 mg tablet 2.5 mg PO BID Qty: 180 3RF Hold Instructions: Resume on 11/17/23. Referrals / Follow Up: Elizabeth Cai MD [Primary Care Provider] - Disposition Disposition (needs filled in before D/C Order can be placed): Home, Self Care 11/09/23 0901<Electronically signed by Fei Rivera MD>Fei Rivera MD CC: Dr. Elizabeth Cai MD ~ Signed Work Phone: 1(708) 115-595603-06-2024 Progress note Author Fei Rivera November 09, 2023 9:01am Note Date/Time November 09, 2023 7:20 am [facility] Medical Records Department [address] [place] [address] Progress Note - Cardiology 11/09/23717 MR#: [id number] Acct: [id number] Name: MARISA SANTIAGO Rep #:[id number] : 1935 88 From: Fei Rivera MD PCP: Dr. Elizabeth Cai MD Status:A DM RHODA Location: [place] [address] Subjective Subjective Patient seen and evaluated and appears to be doing well status post pacemaker implantation Objective Data Vital Signs: Vital Signs Temp Pulse Resp BP Pulse Ox O2 Del Method 97 F L 70 16 109/59 L 94 Room Air 11/09/23 04:11 11/09/23 04:11 11/09/23 04:11 11/09/23 04:11 11/09/23 04:11 11/09/23 04:11 Oxygen Delivery Method Room Air Weight: 151 lb 5 oz Body Mass Index (BMI) 23.0 Intake & Output: Intake and Output for Last 24 Hours 11/07/23 11/08/23 11/09/23 23:59 23:59 23:59 Intake Total 400 / 400 120 / 120 Balance 400 / 400 120 / 120 Cardiology Labs/Tests Rhythm: EKG: ECHO: Stress Test: Cardiac Cath: PCI: CT Surgery: Holter monitor: EPS: PPM: CXR: Chest CT Scan: Radiography Diagnostic Testing: Radiology Impression Chest X-Ray 11/09/23 05:55 IMPRESSION: New left chest pacer with lead in the right ventricle. No evidence of pneumothorax identified. Electronically Signed: Rubén Almeida MD at 5:24 EST , Physical Exam Const alert, oriented x3 and no apparent distress General Appearance: cooperative HEENT hearing grossly normal bilaterally Head and Scalp: atraumatic Eyes EOMs intact bilaterally Neck General: normal visual inspection Chest inspection of chest normal and palpation of chest normal Resp normal respiratory effort Auscultation: clear to auscultation bilaterally Cardio regular rate, regular rhythm, S1 normal heart sound and S2 normal heart sound Jugular Venous Distention: JVD GI normal to inspection, nondistended, normoactive bowel sounds Extremity normal capillary refill and no pedal edema Peripheral Pulses: Yes pulses 2+ throughout and femoral pulses present Skin no rashes or lesions noted Neuro oriented x3 and CN's II-XII intact bilaterally Psych Appearance: grossly normal and appropriate Assessment & Plan Assessment/Plan (1) Status post placement of cardiac pacemaker: PLAN: Patient successfully underwent placement of a permanent pacemaker. Chest x-ray demonstrates good positioning. The pacemaker interrogation this morning was noted to be normal and she will be discharged for outpatient follow-up. 11/09/23 0901 <Electronically signed by Fei Rivera MD> Cosigner Signature (if applicable): CC: ~ Signed Work Phone: 1(479) 283-103003-05-2024 Procedure [facility] Consult note Author Miguel Angel Arreola November 27, 2023 6:42pm Note Date/Time November 27, 2023 6:4 2pm [facility] Medical Records Department [address] [place] [address] Consultation - Orthopedics 11/27/23 1840 MR#: [id number] Acct: [id number] Name: MARISA SANTIAGO Rep #:[id number] : 1935 88 From: Miguel Angel Arreola MD PCP: Dr. Elizabeth Cai MD Status:R ER Location: ED HPI Consult Data Date of Consult: 11/27/23 HPI Narrative HPI Narrative: MARISA SANTIAGO, is a 88 F who presents with a ground level fall, called by the ED today at 638pm. Xray and CT pelvis shows insufficency fracture R sup and inf pubic rami around well fixed KAY and non displaced R clavicle fracture. Unable to ambulate. [facility] Medical History (Updated 11/27/23 @ 18:41 by Miguel Angel Arreola MD) Abnormal urinalysis Acquired hypothyroidism Allergies Anemia Anxiety and depression Arthritis Asthma Atrial fibrillation BRBPR (bright red blood per rectum) Cardiology follow-up encounter Carpal tunnel syndrome Closed head injury Complete heart block Concussion Delayed wound healing Dementia Edema leg Essential (primary) hypertension Fall Flu vaccine need Fracture of metacarpal base, first, right hand, closed Fracture of right inferior pubic ramus Fracture of right superior pubic ramus GI bleed Goiter Hearing problem History of GI bleed History of IBS History of stress test Hyperlipidemia Hypertension Hypothyroidism Malnutrition Memory impairment Microscopic colitis Microscopic colitis Mild intermittent asthma Non-smoker Nonrheumatic mitral valve insufficiency Open wound of left ring finger Osteoarthritis Pacemaker lead malfunction Parathyroid disorder Periorbital edema of left eye Persistent atrial fibrillation Personal history of colonic polyps Post-menopausal Rheumatoid arthritis Right clavicle fracture Sick sinus syndrome Stroke/cerebrovascular accident Thyroid storm Ulcer of left lower extremity with fat layer exposed Ulcer of right lower extremity with fat layer exposed Venous insufficiency 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 Wears glasses Home Medications [id number] 0.4 mg-calcium 162 mg-iron 18 ly-uehfgof-gpewdm tablet 1 ea PO DAILY supplement 06/03/19 [History Last Taken 04/25/21 08:31] acetaminophen 325 mg capsule (Tylenol) 650 mg PO ONCE PRN Pain 10/07/22 [History Last Taken Unknown] apixaban 2.5 mg tablet (Eliquis) 2.5 mg PO BID blood thinner #180 tabs 11/24/22 [Rx Last Taken Unknown] budesonide 90 mcg/actuation breath activated powder inhaler 1 inh inhalation BIDPRN shortness of breath or wheezing 03/14/23 [History Last Taken Unknown] biotin 500 mcg capsule 1 mg PO DAILY supplement 03/25/23 [History Last Taken Unknown] donepezil 5 mg tablet 5 mg PO QHS memory #90 tabs 04/07/23 [Rx Last Taken Unknown] metoprolol tartrate 25 mg tablet 25 mg PO BID BP #180 tabs 06/20/23 [Rx Last Taken Unknown] ferrous sulfate 325 mg (65 mg iron) tablet (FeroSul) See Rx Instructions .Route .COMPLEX supplement #90 TABLETS 06/27/23 [Rx Last Taken Unknown] escitalopram oxalate 5 mg tablet 5 mg PO DAILY anxiety #90 tabs 07/18/23 [Rx Last Taken Unknown] meclizine 25 mg tablet 25 mg PO BID PRN dizziness #90 tabs 07/18/23 [Rx Last Taken Unknown] levothyroxine 112 mcg tablet 112 mcg PO DAILY thyroid 11/09/23 [History Last Taken Unknown] Allergy/AdvReac Type Severity Reaction Status Date / Time Environmental Allergies: Allergy Mild sneezing Verified 11/27/23 16:57 Uncoded latex AdvReac Itching Verified 11/27/23 16:57 sulfamethoxazole AdvReac Nausea Verified 11/27/23 16:57 [From Bactrim] trimethoprim [From Bactrim] AdvReac Nausea Verified 11/27/23 16:57 Family History Father CAD (coronary artery disease) Brother Cancer Leukemia Brother Epilepsy Mother Colon cancer Other CVA (cerebral vascular accident) Diabetes Surgical History (Updated 11/17/23 @ 00:01 by Katrin Perez) H/O thyroidectomy H/O thyroidectomy History of knee replacement History of permanent cardiac pacemaker placement History of right hip replacement Social History household members: none Smoking Status: Never smoker alcohol intake: never substance use type: does not use caffeine: Yes Type: tea Number of servings: 1 what type of physical activity do you participate in: other details: Owlient Vital Signs Vital Signs Vital Signs: 11/27/23 16:56 11/27/23 16:56 Temperature 97.6 F L Temperature Source Oral Pulse Rate 70 Respiratory Rate 16 Respiratory Effort Normal Non-Labored Respiratory Depth Normal Respiratory Pattern Normal Blood Pressure 133/59 H Blood Pressure Mean 83 Pulse Ox 95 Oxygen Delivery Method Room Air Room Air Weight Weight: 161 lb 13.109 oz Body Mass Index (BMI) 24.5 Lab / Micro Data 11/27/23 17:51 11/27/23 17:51 Labs: Laboratory Results - last 24 hr 11/27/23 17:51: WBC 9.9, RBC 4.01 L, Hgb 12.2, Hct 38.7, MCV 96.5, MCH 30.4, MCHC 31.5 L, RDW Std Deviation 45.7 H, RDW Coeff of Radha 12.8, Plt Count 208, MPV10.3, Immature Gran % (Auto) 1.400 H, Neut % (Auto) 81.5 H, Lymph % (Auto) 8.0 L, [place] % (Auto) 6.3, Eos % (Auto) 2.1, Baso % (Auto) 0.7, Absolute Neuts (auto) 8.0 H, Absolute Lymphs (auto) 0.79 L, Nucleated RBC % 0, Sodium 139, Potassium 4.2, Chloride 108 H, Carbon Dioxide 26.0, Anion Gap 5, BUN 25 H, Creatinine 0.85, Estim Creat Clear Calc 47.04, Est GFR (MDRD) Af Amer 82, Est GFR (MDRD) Non-Af 68, BUN/Creatinine Ratio 29.6 H, Glucose 125 H, Calcium 8.9 Imaging Radiology Impression Brain CT 11/27/23 17:26 IMPRESSION: There are no acute findings. Chronic involutional changes of the brain. Electronically Signed: Rubén Casarez MD at 18:17 EDT , Pelvis CT 11/27/23 17:30 IMPRESSION: Fracture of the right sacral ala. Fracture of the right acetabulum. Fractures right superior and inferior pubic ramus. Electronically Signed: Rubén Casarez MD at 18:30 EDT , Shoulder X-Ray 11/27/23 17:50 IMPRESSION: 1. Nondisplaced fracture of the distal right clavicle. 2. Degenerative findings of the right shoulder. Electronically Signed: Rubén Casarez MD at 18:16 EDT , Hip/Pelvis X-Ray 11/27/23 18:00 IMPRESSION: 1. Fracture of the right superior and inferior pubic ramus. 2. Degenerative findings in the left hip. Electronically Signed: Rubén Casarez MD at 18:23 EDT , Assessment & Plan Assessment/Plan (1) Fracture of right inferior pubic ramus: PLAN: 88 yr F with R rami fractures and non displaced R clavicle fracture. Recommend WBAT R LE and sling R arm for comfort, both non operative issues. Admit under the hospitalist, will see the patient tomorrow. (2) Fracture of right superior pubic ramus: (3) Right clavicle fracture: 11/27/23 1842 <Electronically signed by Miguel Angel Arreola MD> Cosigner Signature (if applicable): CC: Dr. Elizabeth Cai MD~ Signed Work Phone: Evaluation noteNo assessment information available Work Phone: Evaluation note* Diagnosis Onset Date Resolution Status Complete heart block chronic History of permanent cardiac pacemaker placement chronic Persistent atrial fibrillation chronic Sick sinus syndrome chronic Atrial fibrillation acute Complete heart block chronic Essential (primary) hypertension chronic History of permanent cardiac pacemaker placement chronic Hyperlipidemia chronic Nonrheumatic mitral valve insufficiency chronic Sick sinus syndrome chronic Work Phone: Evaluation note* Diagnosis Onset Date Resolution Status Confusion resolved Generalized weakness resolve d Vertigo resolved Complete heart block chronic History of permanent cardiac pacemaker placement chronic Persistent atrial fibrillation chronic Sick sinus syndrome chronic Complete heart block chronic Essential (primary) hypertension chronic History of permanent cardiac pacemaker placement chronic Hyperlipidemia chronic Nonrheumatic mitral valve insufficiency chronic Sick sinus syndrome chronic Anxiety and depression chron ic Essential (primary) hypertension chronic GI bleed chronic Memory impairment chronic Venous insufficiency chronic Vertigo chronic Work Phone: Evaluation note* Diagnosis Onset Date Resolution Status Confusion resolved Generalized weakness resolve d Vertigo resolved Complete heart block chronic History of permanent cardiac pacemaker placement chronic Persistent atrial fibrillation chronic Sick sinus syndrome chronic Complete heart block chronic Essential (primary) hypertension chronic History of permanent cardiac pacemaker placement chronic Hyperlipidemia chronic Nonrheumatic mitral valve insufficiency chronic Sick sinus syndrome chronic Anxiety and depression chron ic Essential (primary) hypertension chronic GI bleed chronic Memory impairment chronic Venous insufficiency chronic Vertigo chronic Iron deficiency anemia acute Work Phone: Evaluation note* Diagnosis Onset Date Resolution Status Insufficiency fracture acute Distal radius fracture chron ic Distal radius fracture chron ic Flu vaccine need acute Dementia chronic Distal radius fracture chron ic Essential (primary) hypertension chronic Hypothyroidism chronic Work Phone: Evaluation note* Diagnosis Onset Date Resolution Status Distal radius fracture chron ic Flu vaccine need acute Dementia chronic Distal radius fracture chron ic Essential (primary) hypertension chronic Hypothyroidism chronic Distal radius fracture chron ic Cough acute Complete heart block chronic History of permanent cardiac pacemaker placement chronic Persistent atrial fibrillation chronic Essential (primary) hypertension chronic History of permanent cardiac pacemaker placement chronic Hyperlipidemia chronic Nonrheumatic mitral valve insufficiency chronic Post-menopausal acute Dementia chronic Essential (primary) hypertension chronic Hypothyroidism chronic Work Phone: [phone] note* Diagnosis Onset Date Resolution Status Distal radius fracture chron ic Flu vaccine need acute Dementia chronic Distal radius fracture chron ic Essential (primary) hypertension chronic Hypothyroidism chronic Distal radius fracture chron ic Cough acute Complete heart block chronic History of permanent cardiac pacemaker placement chronic Persistent atrial fibrillation chronic Essential (primary) hypertension chronic History of permanent cardiac pacemaker placement chronic Hyperlipidemia chronic Nonrheumatic mitral valve insufficiency chronic Post-menopausal acute Dementia chronic Essential (primary) hypertension chronic Hypothyroidism chronic Status post placement of cardiac pacemaker acute Work Phone: Evaluation note* Diagnosis Onset Date Resolution Status Distal radius fracture chron ic Cough acute Complete heart block chronic History of permanent cardiac pacemaker placement chronic Persistent atrial fibrillation chronic Essential (primary) hypertension chronic History of permanent cardiac pacemaker placement chronic Hyperlipidemia chronic Nonrheumatic mitral valve insufficiency chronic Post-menopausal acute Dementia chronic Essential (primary) hypertension chronic Hypothyroidism chronic Status post placement of cardiac pacemaker acute Complete heart block chronic History of permanent cardiac pacemaker placement chronic Persistent atrial fibrillation chronic Pacemaker lead malfunction r esolved Status post placement of cardiac pacemaker acute Complete heart block chronic Persistent atrial fibrillation chronic Sick sinus syndrome chronic Clavicle fracture acute Fall acute Fracture of right inferior pubic ramus acute Fracture of right superior pubic ramus acute Fracture, pelvis closed acut e Right clavicle fracture acwv e Work Phone: Evaluation note* Diagnosis Onset Date Resolution Status Distal radius fracture chron ic Cough acute Complete heart block chronic History of permanent cardiac pacemaker placement chronic Persistent atrial fibrillation chronic Essential (primary) hypertension chronic History of permanent cardiac pacemaker placement chronic Hyperlipidemia chronic Nonrheumatic mitral valve insufficiency chronic Post-menopausal acute Dementia chronic Essential (primary) hypertension chronic Hypothyroidism chronic Status post placement of cardiac pacemaker acute Complete heart block chronic History of permanent cardiac pacemaker placement chronic Persistent atrial fibrillation chronic Pacemaker lead malfunction r esolved Status post placement of cardiac pacemaker acute Complete heart block chronic Persistent atrial fibrillation chronic Sick sinus syndrome chronic Clavicle fracture acute Fall acute Fracture of right inferior pubic ramus acute Fracture of right superior pubic ramus acute Fracture, pelvis closed acut e Right clavicle fracture acut e Complete heart block chronic History of permanent cardiac pacemaker placement chronic Persistent atrial fibrillation chronic Sick sinus syndrome chronic Work Phone: Evaluation note* Diagnosis Onset Date Resolution Status History of permanent cardiac pacemaker placement chronic Persistent atrial fibrillation chronic Essential (primary) hypertension chronic History of permanent cardiac pacemaker placement chronic Hyperlipidemia chronic Nonrheumatic mitral valve insufficiency chronic Dementia chronic Essential (primary) hypertension chronic History of permanent cardiac pacemaker placement chronic Persistent atrial fibrillation chronic Persistent atrial fibrillation chronic Sick sinus syndrome chronic Fracture of right inferior pubic ramus acute Fracture of right superior pubic ramus acute History of permanent cardiac pacemaker placement chronic Persistent atrial fibrillation chronic Sick sinus syndrome chronic Acute cystitis acute Acute pain due to trauma acu te Fracture of right inferior pubic ramus acute Fracture of right superior pubic ramus acute Heme positive stool acute Physical debility acute Right thigh pain acute Anemia chronic 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[place] Dementia chronic History of permanent cardiac pacemaker placement chronic Hypertension chronic Persistent atrial fibrillation chronic Work Phone: Evaluation note* Diagnosis Onset Date Resolution Status Complete heart block acute Atrial fibrillation acute Essential (primary) hypertension chronic Hyperlipidemia chronic Nonrheumatic mitral valve insufficiency chronic Hypothyroidism acute Essential (primary) hypertension chronic Complete heart block acute Complete heart block acute Sick sinus syndrome chronic Fracture of right inferior pubic ramus acute Fracture of right superior pubic ramus acute Complete heart block acute Sick sinus syndrome chronic Acute pain due to trauma acu te Fracture of right inferior pubic ramus acute Fracture of right superior pubic ramus acute Heme positive stool acute Physical debility acute Right thigh pain acute Anemia chronic Hypertension chronic Acute cystitis resolved Alzheimer disease acute Anxiety acute Asthma acute Atrial fibrillation acute Complete heart block acute Debility acute Depression acute Essential (primary) hypertension acute Hypothyroidism acute Iron deficiency anemia acute Microscopic colitis acute Osteoarthritis acute Pelvis fracture, right acute Rheumatoid arthritis acute Right clavicle fracture acut e Urinary tract infection acut e Pelvis fracture, right acute Right clavicle fracture acut e Work Phone: History and physical note Author Edgar Lopez November 27, 2023 7:50pm Note Date/Time November 27, 2023 7:4 2pm [facility] Medical Records Department [address] [place] [id number] H&P Exam - Hospitalist 11/27/231932 MR#: [id number] Acct: [id number] Name: MARISA SANTIAGO Rep #:[id number] : 1935 88 From: Edgar Lopez MD PCP: Dr. Elizabeth Cai MD Status:A DM IN Location: MS3 [id number] HPI - General General Date of Admission: 11/27/23 Date of Service: 11/27/23 Chief Complaint: Acute fall HPI Narrative MARISA SANTIAGO, is a 88 F who presents to the ED after falling from standing height this evening. She has a past medical history of CVA, hypothyroidism, persistent atrial fibrillation, complete heart block s/p permanent pacemaker, nonrheumatic mitral valve insufficiency, essential hypertension. She fell from ground-level today around 530, and developed pain on the right shoulder and also was not able to move her right thigh. X-ray and CT pelvis in the ED showed insufficiency and right superior inferior pubic rami fracture along with nondisplaced right clavicle fracture. Orthopedic opinion was sought,no surgical intervention is indicated She is now being admitted for rehabilitation as she lives by herself and would not be able to take care of her activities of daily living at home. [facility] Medical History (Updated 11/27/23 @ 18:56 by ELIJAH Jorgensen) Abnormal urinalysis Acquired hypothyroidism Allergies Anemia Anxiety and depression Arthritis Asthma Atrial fibrillation BRBPR (bright red blood per rectum) Cardiology follow-up encounter Carpal tunnel syndrome Closed head injury Complete heart block Concussion Delayed wound healing Dementia Edema leg Essential (primary) hypertension Fall Flu vaccine need Fracture of metacarpal base, first, right hand, closed Fracture of right inferior pubic ramus Fracture of right superior pubic ramus GI bleed Goiter Hearing problem History of GI bleed History of IBS History of stress test Hyperlipidemia Hypertension Hypothyroidism Malnutrition Memory impairment Microscopic colitis Microscopic colitis Mild intermittent asthma Non-smoker Nonrheumatic mitral valve insufficiency Open wound of left ring finger Osteoarthritis Pacemaker lead malfunction Parathyroid disorder Periorbital edema of left eye Persistent atrial fibrillation Personal history of colonic polyps Post-menopausal Rheumatoid arthritis Right clavicle fracture Sick sinus syndrome Stroke/cerebrovascular accident Thyroid storm Ulcer of left lower extremity with fat layer exposed Ulcer of right lower extremity with fat layer exposed Venous insufficiency 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 Wears glasses Home Medications [id number] 0.4 mg-calcium 162 mg-iron 18 vn-nvgtylq-rpsplr tablet 1 ea PO DAILY supplement 06/03/19 [History Last Taken 04/25/21 08:31] acetaminophen 325 mg capsule (Tylenol) 650 mg PO ONCE PRN Pain 10/07/22 [History Last Taken Unknown] apixaban 2.5 mg tablet (Eliquis) 2.5 mg PO BID blood thinner #180 tabs 11/24/22 [Rx Last Taken Unknown] budesonide 90 mcg/actuation breath activated powder inhaler 1 inh inhalation BIDPRN shortness of breath or wheezing 03/14/23 [History Last Taken Unknown] biotin 500 mcg capsule 1 mg PO DAILY supplement 03/25/23 [History Last Taken Unknown] donepezil 5 mg tablet 5 mg PO QHS memory #90 tabs 04/07/23 [Rx Last Taken Unknown] metoprolol tartrate 25 mg tablet 25 mg PO BID BP #180 tabs 06/20/23 [Rx Last Taken Unknown] ferrous sulfate 325 mg (65 mg iron) tablet (FeroSul) See Rx Instructions .Route .COMPLEX supplement #90 TABLETS 06/27/23 [Rx Last Taken Unknown] escitalopram oxalate 5 mg tablet 5 mg PO DAILY anxiety #90 tabs 07/18/23 [Rx Last Taken Unknown] meclizine 25 mg tablet 25 mg PO BID PRN dizziness #90 tabs 07/18/23 [Rx Last Taken Unknown] levothyroxine 112 mcg tablet 112 mcg PO DAILY thyroid 11/09/23 [History Last Taken Unknown] Allergy/AdvReac Type Severity Reaction Status Date / Time Environmental Allergies: Allergy Mild sneezing Verified 11/27/23 16:57 Uncoded latex AdvReac Itching Verified 11/27/23 16:57 sulfamethoxazole AdvReac Nausea Verified 11/27/23 16:57 [From Bactrim] trimethoprim [From Bactrim] AdvReac Nausea Verified 11/27/23 16:57 Family History Father CAD (coronary artery disease) Brother Cancer Leukemia Brother Epilepsy Mother Colon cancer Other CVA (cerebral vascular accident) Diabetes Surgical History (Updated 11/17/23 @ 00:01 by Katrin Perez) H/O thyroidectomy H/O thyroidectomy History of knee replacement History of permanent cardiac pacemaker placement History of right hip replacement Social History household members: none Smoking Status: Never smoker alcohol intake: never substance use type: does not use caffeine: Yes Type: tea Number of servings: 1 what type of physical activity do you participate in: other details: Owlient ROS Review of Systems ROS Unobtainable: Denies due to encephalopathy, due to endotracheal tube, due tomental condition, due to mental status or other Constitutional Constitutional: Denies anorexia, change in weight, chills, fatigue, fever(s), malaise, night sweats, weakness or other Eyes Eyes: Denies blurry vision, change in eye color, change in vision, discharge from eye(s), double vision, erythema, eye pain, loss of vision or other ENT HEENT: Denies abnormal hearing, dysphagia, ear pain, epistaxis, headache(s), hearing loss, nasal congestion, nasal discharge, post nasal drip, sinus pressure, sore throat or other Cardiovascular Cardiovascular: Denies chest pain, claudication, dyspnea on exertion, edema, lightheadedness, orthopnea, palpitations, paroxysmal nocturnal dyspnea, rapid heart rate, syncope or other Respiratory/Chest Respiratory/Chest: Denies cough, dyspnea, excessive phlegm production, hemoptysis, productive cough, shortness of breath at rest, shortness of breath with exertion, wheezing or other Gastrointestinal Gastrointestinal: Denies abdominal pain, coffee ground emesis, constipation, diarrhea, dyspepsia, hematemesis, hematochezia, loose stools, melena, nausea, vomiting or other Musculoskeletal Musculoskeletal: Reports joint pain, joint stiffness and joint swelling; Denies arthralgias, back pain, myalgias, neck pain or other Neurologic Neurologic: Denies abnormal gait, abnormal speech, confusion, disequilibrium, dizziness, focal weakness, headache(s), numbness, paresthesias, seizure-like activity, seizures, syncope, tingling, tremor(s) or other Psychiatric Psychiatric: Denies anxiety, depression, homicidal ideation, suicidal ideation or other Endocrine Endocrinology: Denies change in body appearance, cold intolerance, excessive sweating, heat intolerance, polydipsia, polyuria or other Hematologic/Lymphatic Hematologic/Lymphatic: Denies anemia, easy bleeding, easy bruising, lymphadenopathy or other Allergic/Immunologic Allergic/Immunologic: Denies rhinitis, hives, eczemia, asthma or other Vital Signs Vital Signs Vital Signs: 11/27/23 16:56 11/27/23 16:56 11/27/23 18:56 Temperature 97.6 F L 97.6 F L Temperature Source Oral Pulse Rate 70 70 Respiratory Rate 16 17 Respiratory Effort Normal Non-Labored Respiratory Depth Normal Respiratory Pattern Normal Blood Pressure 133/59 H 139/73 H Blood Pressure Mean 83 95 Pulse Ox 95 95 Oxygen Delivery Method Room Air Room Air Weight Weight: 161 lb 13.109 oz Body Mass Index (BMI) 24.5 Physical Exam Const alert and oriented x3 Constitutional Narrative: States pain is bearable, worsens with movement HEENT normocephalic, head/scalp atraumatic, hearing grossly normal bilaterally, moist oral mucous membranes, oropharynx normal and dentition normal Eyes PERRL Neck no lymphadenopathy and supple Resp normal respiratory effort and no retractions Cardio regular rate, regular rhythm, S1 normal heart sound, S2 normal heart sound, no murmurs, no rub, no gallops, no clicks and no JVD GI normal to inspection, nondistended, normoactive bowel sounds, soft to palpation,non-tender, non-distended and hepatosplenomegaly Extremity Extremity Narrative: Not able to move her right hip joint due to pain. Localized tenderness present over her right clavicle. Neuro oriented x3 Psych affect normal Results Medical Records Data Attestation: I reviewed the patient's medical records Lab / Micro Data Attestation: I reviewed the patient's lab results. 11/27/23 17:51 11/27/23 17:51 Labs: Laboratory Results - last 24 hr 11/27/23 17:51: WBC 9.9, RBC 4.01 L, Hgb 12.2, Hct 38.7, MCV 96.5, MCH 30.4, MCHC 31.5 L, RDW Std Deviation 45.7 H, RDW Coeff of Radha 12.8, Plt Count 208, MPV10.3, Immature Gran % (Auto) 1.400 H, Neut % (Auto) 81.5 H, Lymph % (Auto) 8.0 L, [place] % (Auto) 6.3, Eos % (Auto) 2.1, Baso % (Auto) 0.7, Absolute Neuts (auto) 8.0 H, Absolute Lymphs (auto) 0.79 L, Nucleated RBC % 0, Sodium 139, Potassium 4.2, Chloride 108 H, Carbon Dioxide 26.0, Anion Gap 5, BUN 25 H, Creatinine 0.85, Estim Creat Clear Calc 47.04, Est GFR (MDRD) Af Amer 82, Est GFR (MDRD) Non-Af 68, BUN/Creatinine Ratio 29.6 H, Glucose 125 H, Calcium 8.9 Imaging Radiology Impression Brain CT 11/27/23 17:26 IMPRESSION: There are no acute findings. Chronic involutional changes of the brain. Electronically Signed: Rubén Casarez MD at 18:17 EDT , Cervical Spine CT 11/27/23 17:26 IMPRESSION: Degenerative changes of the cervical spine. There are no acute findings. Electronically Signed: Rubén Casarez MD at 18:39 EDT , Pelvis CT 11/27/23 17:30 IMPRESSION: Fracture of the right sacral ala. Fracture of the right acetabulum. Fractures right superior and inferior pubic ramus. Electronically Signed: Rubén Casarez MD at 18:30 EDT , Shoulder X-Ray 11/27/23 17:50 IMPRESSION: 1. Nondisplaced fracture of the distal right clavicle. 2. Degenerative findings of the right shoulder. Electronically Signed: Rubén Casarez MD at 18:16 EDT , Hip/Pelvis X-Ray 11/27/23 18:00 IMPRESSION: 1. Fracture of the right superior and inferior pubic ramus. 2. Degenerative findings in the left hip. Electronically Signed: Rubén Casarez MD at 18:23 EDT , Assessment & Plan Assessment/Plan (1) Clavicle fracture: PLAN: Plan 88-year-old female with past medical history of A-fib, complete heart block s/p permanent pacemaker placement, mild dementia, prior GI bleed, prior CVA, presents to the ED following a fall and right hip fracture with clavicular fracture. She is being admitted for further inpatient management and for placement. #Multiple fractures following fall: -Orthopedic consult in the morning -Pain control with Tylenol -Will increase to opioids if the pain is not tolerable0 #Complete heart block s/p permanent pacemaker in place: Will order for a pacemaker check given the fall to rule out any dysfunction. #Prior CVA: Continue Eliquis 2.5 mg twice daily #Dementia: Continue donepezil 5 mg daily #Iron deficiency anemia: Continue ferrous sulfate 65 mg daily #Hypothyroidism: Continue levothyroxine 100 mcg #Hypertension: Hold beta-krystina in the setting of fall right now #DVT: High risk, she is already on Eliquis 2.5 mg we will continue the same, SCD Charges/Coding Visit Charges Inpatient E&M: 50580 Init Hosp L2 11/27/231949 <Electronically signed by Edgar Lopez MD> Cosigner Signature (if applicable): CC: Dr. Edgar Lopez MD; Dr. Elizabeth Cai MD~ Signed Work Phone: Reason for referral (narrative)No reason for referral information availableWSelect [facility] [place] Work Phone: Family History No Family History Records Found Relationship Condition Age at Onset Recorded Date/T ar[place] father Coronary artery disease Unknown brother Malignant neoplasm Unknown brother Epilepsy Unknown Relationship Condition Age at Onset Recorded Date/T arlen Not Specified Diabetes mellitus Unknown Cerebrovascular accident (CVA) Unknown father Coronary artery disease Unknown brother Malignant neoplasm Unknown brother Epilepsy Unknown Relationship Condition Age at Onset Recorded Date/T arlen Not Specified Diabetes mellitus Unknown Cerebrovascular accident (CVA) Unknown father Coronary artery disease Unknown brother Malignant neoplasm Unknown brother Epilepsy Unknown mother Malignant neoplasm of colon Unknown Advance Directives No Advanced Directives Records Found Advance Directive Response Recorded Date/ Time Advance Directives Yes February 13 10:21am Living Will Yes April 28 3:39pm Power of Soil Conservation Aide Yes April 28, 021 3:39pm Advance Directive Response Recorded Date/ Time Name of Medical Power of Soil Conservation Aide FERNANDEZ GONG February 21, 2022 12:00pm Advance Directives Yes February 13 10:21am Living Will Yes February 21, 2022 12:00pm Power of Soil Conservation Aide Yes February 21 12:00pm Advance Directive Response Recorded Date/ Time Name of Medical Power of Soil Conservation Aide FERNANDEZ GONG February 21, 2022 12:00pm Name of Medical Power of Soil Conservation Aide Phill Santiago March 09, 2022 12:15pm Advance Directives Yes February 13 10:21am Living Will Yes March 09, 2022 1 2:15pm Power of Soil Conservation Aide Yes March 09, 2022 12:15pm Advance Directive Response Recorded Date/ Time Name of Medical Power of Soil Conservation Aide PHILL SANTIAGO July 25, 2022 10:35pm Advance Directives Yes February 13 9:21am Living Will Yes July 25 022 10:35pm Power of Soil Conservation Aide Yes July 25, 2022 10:35pm Advance Directive Response Recorded Date/ Time Name of Medical Power of Soil Conservation Aide PHILL SANTIAGO July 25, 2022 10:35pm Name of Medical Power of Soil Conservation Aide . August 02, 2022 10:26am Advance Directives Yes February 13 9:21am Living Will Yes August 02, 022 10:26am Power of Soil Conservation Aide Yes August 02, 2022 10:26am Advance Directive Response Recorded Date/ Time Name of Medical Power of Soil Conservation Aide PHILL SANTIAGO July 25, 2022 10:35pm Name of Medical Power of Soil Conservation Aide . August 02, 2022 10:26am Name of Medical Power of Soil Conservation Aide Fernandez Santiago August 14, 2022 5:25pm Advance Directives Yes February 13 9:21am Living Will Yes August 14, 022 5:25pm Power of Soil Conservation Aide Yes August 14, 2022 5:25pm Advance Directive Response Recorded Date/ Time Name of Medical Power of Soil Conservation Aide Phill Santiago, son June 14, 2023 11:03am Advance Directives Yes February 13 9:21am Living Will Yes June 14 11:03am Power of Soil Conservation Aide Yes June 14, 2023 11:03am Advance Directive Response Recorded Date/ Time Advance Directives No October 7:55am Living Will No October 28 7:55am Power of Soil Conservation Aide No October 28, 2023 7:55am Advance Directive Response Recorded Date/ Time Advance Directives on File No November 08, 2023 11:26am Advance Directives Yes November 07 11:26am Living Will Yes November 08, 2023 11:26am Power of Soil Conservation Aide Yes November 07 11:26am Advance Directive Response Recorded Date/ Time Advance Directives on File No November 08, 2023 12:26pm Name of Medical Power of Soil Conservation Aide unknown November 27, 2023 4:56pm Advance Directives Yes November 07 12:26pm Living Will Yes November 27, 2023 4:56pm Power of Soil Conservation Aide No November 26 4:56pm Advance Directive Response Recorded Date/ Time Advance Directives on File No November 08, 2023 12:26pm Name of Medical Power of Soil Conservation Aide fernandez santiago November 27, 2023 8:17pm Advance Directives Yes November 07 12:26pm Living Will Yes November 27, 2023 8:17pm Power of Soil Conservation Aide Yes November 26 8:17pm Advance Directive Response Recorded Date/ Time Name of Medical Power of Soil Conservation Aide Lee Jack November 30, 2023 4:30pm Advance Directives Yes November 07 12:26pm Living Will Yes November 30, 2023 4:30pm Power of Soil Conservation Aide Yes November 29 4:30pm Advance Directives on File No November 08, 2023 12:26pm Name of Medical Power of Soil Conservation Aide fernandez santiago November 27, 2023 8:17pm Advance Directive Response Recorded Date/ Time Name of Medical Power of Soil Conservation Aide Lee Santiago November 30, 2023 4:30pm Name of Medical Power of Soil Conservation Aide BILL OR BING LUCAS December 15, 2023 3:14pm Name of Medical Power of Soil Conservation Aide Krupa Grace January 03, 2024 3:22pm Advance Directives Yes November 07 12:26pm Living Will Yes January 03, 2024 3:22pm Power of Soil Conservation Aide Yes January 02 3:22pm Advance Directives on File No November 08, 2023 12:26pm Name of Medical Power of Soil Conservation Aide fernandez santiago November 27, 2023 8:17pm Advance Directive Response Recorded Date/ Time Living Will Yes January 03, 2024 3:22pm Power of Soil Conservation Aide Yes January 02 3:22pm Advance Directives Yes November 07 12:26pm Advance Directive Response Recorded Date/ Time Living Will Yes January 03, 2024 3:22pm Do you have a Healthcare Power of Soil Conservation Aide? Yes January 03, 2024 3:22pm Advance Directives Yes November 07 12:26pm Advance Directive Response Recorded Date/ Time Advance Directives Yes November 07 12:26pm Chief Complaint and Reason for Visit Chief Complaint HIP PAIN Chief Complaint HIP PAIN 6 MO CK / KRR 3:30 6 MO F/U / PADDY 3:00 Reason for Visit Complete heart block History of permanent cardiac pacemaker placement Persistent atrial fibrillation Sick sinus syndrome Atrial fibrillation Complete heart block Essential (primary) hypertension History of permanent cardiac pacemaker placement Hyperlipidemia Nonrheumatic mitral valve insufficiency Sick sinus syndrome Chief Complaint HIP PAIN 6 MO CK / KRR 3:30 6 MO F/U / PADDY 3:00 FALL Reason for Visit Complete heart block History of permanent cardiac pacemaker placement Persistent atrial fibrillation Sick sinus syndrome Atrial fibrillation Complete heart block Essential (primary) hypertension History of permanent cardiac pacemaker placement Hyperlipidemia Nonrheumatic mitral valve insufficiency Sick sinus syndrome Chief Complaint fall Chief Complaint fall DIZZINESS Chief Complaint fall DIZZINESS VERTIGO Vertigo Vertigo Vertigo 6 MO F/U / 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 EST CARE - PPW SENT ANEMIA/GI BLEED Reason for Visit Confusion Generalized weakness Vertigo Complete heart block History of permanent cardiac pacemaker placement Persistent atrial fibrillation Sick sinus syndrome Complete heart block Essential (primary) hypertension History of permanent cardiac pacemaker placement Hyperlipidemia Nonrheumatic mitral valve insufficiency Sick sinus syndrome Anxiety and depression Essential (primary) hypertension GI bleed Memory impairment Venous insufficiency Vertigo Iron deficiency anemia Chief Complaint fall, wrist and knee pain LEFT WRIST Room 5 LEFT WRIST RM 4 6 M FU Reason for Visit Insufficiency fractu re Distal radius fracture Distal radius fracture Flu vaccine need Dementia Distal radius fracture Essential (primary) hypertension Hypothyroidism Chief Complaint LEFT WRIST RM 4 6 M FU LEFT WRIST cast room COLD/ HEAVY BREATHING XRAY Pacer Check Remote 6 M FU/ 11:00 W JORDANA 6 M FU/ 10:30 W PADDY 3 M FU Reason for Visit Distal radius fractu re Flu vaccine need Dementia Distal radius fracture Essential (primary) hypertension Hypothyroidism Distal radius fracture Cough Complete heart block History of permanent cardiac pacemaker placement Persistent atrial fibrillation Essential (primary) hypertension History of permanent cardiac pacemaker placement Hyperlipidemia Nonrheumatic mitral valve insufficiency Post-menopausal Dementia Essential (primary) hypertension Hypothyroidism Chief Complaint LEFT WRIST RM 4 6 M FU LEFT WRIST cast room COLD/ HEAVY BREATHING XRAY Pacer Check Remote 6 M FU/ 11:[address] FU/ 10:30 W PADDY 3 M FU left subclavian/axillary vein for possible lead re left subclavian/axillary vein for possible lead re Single chamber PPM generator change [id number] [id number] Single chamber PPM generator change [id number] AFIB INPATIENT w/p lead revision Reason for Visit Distal radius fractu re Flu vaccine need Dementia Distal radius fracture Essential (primary) hypertension Hypothyroidism Distal radius fracture Cough Complete heart block History of permanent cardiac pacemaker placement Persistent atrial fibrillation Essential (primary) hypertension History of permanent cardiac pacemaker placement Hyperlipidemia Nonrheumatic mitral valve insufficiency Post-menopausal Dementia Essential (primary) hypertension Hypothyroidism Status post placement of cardiac pacemaker Chief Complaint LEFT WRIST cast room COLD/ HEAVY BREATHING XRAY Pacer Check Remote 6 M FU/ 11:00 W JORDANA 6 FU/ 10:30 W PADDY 3 M FU left subclavian/axillary vein for possible lead re left subclavian/axillary vein for possible lead re AF S/P PACEMAKER Single chamber PPM generator change [id number] AFIB INPATIENT w/p lead revision Pacer Check Remote 1 wk s/p lead revision fall FALL, PELVIC FRACTURE FALL, PELVIC FRACTURE Reason for Visit Distal radius fractu re Cough Complete heart block History of permanent cardiac pacemaker placement Persistent atrial fibrillation Essential (primary) hypertension History of permanent cardiac pacemaker placement Hyperlipidemia Nonrheumatic mitral valve insufficiency Post-menopausal Dementia Essential (primary) hypertension Hypothyroidism Status post placement of cardiac pacemaker Complete heart block History of permanent cardiac pacemaker placement Persistent atrial fibrillation Pacemaker lead malfunction Status post placement of cardiac pacemaker Complete heart block Persistent atrial fibrillation Sick sinus syndrome Clavicle fracture Fall Fracture of right inferior pubic ramus Fracture of right superior pubic ramus Fracture, pelvis closed Right clavicle fracture Chief Complaint LEFT WRIST cast room COLD/ HEAVY BREATHING XRAY Pacer Check Remote 6 M FU/ 11:00 W JORDANA 6 M FU/ 10:30 W PADDY 3 M FU left subclavian/axillary vein for possible lead re left subclavian/axillary vein for possible lead re AF S/P PACEMAKER Single chamber PPM generator change [id number] AFIB INPATIENT w/p lead revision Pacer Check Remote Pacer Check Remote 1 wk s/p lead revision fall FALL, PELVIC FRACTURE HIP FRACTURE Pacer Check Remote INPATIENT PPM check. Fell HIP FRACTURE HIP FRACTURE HIP FRACTURE Reason for Visit Distal radius fractu re Cough Complete heart block History of permanent cardiac pacemaker placement Persistent atrial fibrillation Essential (primary) hypertension History of permanent cardiac pacemaker placement Hyperlipidemia Nonrheumatic mitral valve insufficiency Post-menopausal Dementia Essential (primary) hypertension Hypothyroidism Status post placement of cardiac pacemaker Complete heart block History of permanent cardiac pacemaker placement Persistent atrial fibrillation Pacemaker lead malfunction Status post placement of cardiac pacemaker Complete heart block Persistent atrial fibrillation Sick sinus syndrome Clavicle fracture Fall Fracture of right inferior pubic ramus Fracture of right superior pubic ramus Fracture, pelvis closed Right clavicle fracture Complete heart block History of permanent cardiac pacemaker placement Persistent atrial fibrillation Sick sinus syndrome Chief Complaint COLD/ HEAVY BREATHIN G XRAY Pacer Check Remote 6 M FU/ 11:00 W JORDANA 6 M FU/ 10:30 W PADDY 3 M FU left subclavian/axillary vein for possible lead re left subclavian/axillary vein for possible lead re AF S/P PACEMAKER Single chamber PPM generator change [id number] AFIB INPATIENT w/p lead revision Pacer Check Remote Pacer Check Remote 1 wk s/p lead revision fall FALL, PELVIC FRACTURE HIP FRACTURE Pacer Check Remote INPATIENT PPM check. Fell HIP FRACTURE HIP FRACTURE HIP FRACTURE PELVIC FRACTURE PELVIC FRACTURE PELVIC FRACTURE PELVIC FRACTURE PELVIC FRACTURE PELVIC FRACTURE PELVIC FRACTURE PELVIC FRACTURE PELVIC FRACTURE PELVIC FRACTURE Reason for Visit History of permanent cardiac pacemaker placement Persistent atrial fibrillation Essential (primary) hypertension History of permanent cardiac pacemaker placement Hyperlipidemia Nonrheumatic mitral valve insufficiency Dementia Essential (primary) hypertension History of permanent cardiac pacemaker placement Persistent atrial fibrillation Persistent atrial fibrillation Sick sinus syndrome Fracture of right inferior pubic ramus Fracture of right superior pubic ramus History of permanent cardiac pacemaker placement Persistent atrial fibrillation Sick sinus syndrome Acute cystitis Acute pain due to trauma Fracture of right inferior pubic ramus Fracture of right superior pubic ramus Heme positive stool Physical debility Right thigh pain Anemia Chronic anticoagulation Dementia History of permanent cardiac pacemaker placement Hypertension Persistent atrial fibrillation Chief Complaint Pacer Check Remote 6 M FU/ 11:00 W JORDANA 6 M FU/ 10:30 W PADDY 3 M FU left subclavian/axillary vein for possible lead re left subclavian/axillary vein for possible lead re AF S/P PACEMAKER Single chamber PPM generator change [id number] AFIB INPATIENT w/p lead revision Pacer Check Remote Pacer Check Remote 1 wk s/p lead revision fall FALL, PELVIC FRACTURE HIP FRACTURE Pacer Check Remote INPATIENT PPM check. Fell HIP FRACTURE HIP FRACTURE HIP FRACTURE PELVIC FRACTURE PELVIC FRACTURE PELVIC FRACTURE PELVIC FRACTURE PELVIC FRACTURE PELVIC FRACTURE PELVIC FRACTURE PELVIC FRACTURE PELVIC FRACTURE PELVIC FRACTURE PELVIC FRACTURE FALL WITH HEAD STRIKE PELVIS waiting room FALL fall Reason for Visit Complete heart block Atrial fibrillation Essential (primary) hypertension Hyperlipidemia Nonrheumatic mitral valve insufficiency Hypothyroidism Essential (primary) hypertension Complete heart block Complete heart block Sick sinus syndrome Fracture of right inferior pubic ramus Fracture of right superior pubic ramus Complete heart block Sick sinus syndrome Acute pain due to trauma Fracture of right inferior pubic ramus Fracture of right superior pubic ramus Heme positive stool Physical debility Right thigh pain Anemia Hypertension Acute cystitis Alzheimer disease Anxiety Asthma Atrial fibrillation Complete heart block Debility Depression Essential (primary) hypertension Hypothyroidism Iron deficiency anemia Microscopic colitis Osteoarthritis Pelvis fracture, right Rheumatoid arthritis Right clavicle fracture Urinary tract infection Pelvis fracture, right Right clavicle fracture Chief Complaint Admit Date 3 M FU July 27, 2024 11:18am acute - possible lft leg infection Febru [email or web address] 2:51pm 1 W FU October 26, 2024 12:23pm 2 W November 07, 2024 10:3 2am Reason for Visit Admit Date Anxiety and depression July 27 11:18am Dementia July 27, 2024 11:18am Essential (primary) hypertension Novembe 2023 11:18am Flu vaccine need July 27, 2024 11:18am Hypothyroidism July 27, 2024 11:18am Cellulitis of left lower leg October 172024 2:51pm Open wound of both lower extremities Feb ru2024 12:23pm Open wound of both lower extremities [facility] 2024 10:32am Chief Complaint Admit Date acute - possible lft leg infection Febru javier 2024 2:51pm 1 W FU October 26, 2024 12:23pm 2 W FU November 07, 2024 10:3 2am 6 M FU November 29, 2024 11: 47am WOUNDS LOWER EXTREMITIES November 29 12:38pm Reason for Visit Admit Date Cellulitis of left lower leg October 172024 2:51pm Open wound of both lower extremities Feb [facility] 2024 12:23pm Open wound of both lower extremities [facility] 2024 10:32am Atrial fibrillation November 29, 2024 11: 47am Essential (primary) hypertension November 042024 11:47am Hyperlipidemia November 29, 2024 11: 47am Nonrheumatic mitral valve insufficiency November 29, 2024 11:47am History of permanent cardiac pacemaker p lacement November 29, 2024 11:47am Chief Complaint Admit Date acute - possible lft leg infection Febru [email or web address] 2:51pm 1 W FU October 26, 2024 12:23pm 2 W FU November 07, 2024 10:3 2am 6 M FU November 29, 2024 11: 47am WOUNDS LOWER EXTREMITIES November 29 12:38pm Pacer Check Remote December 03, 2024 2:0 0am Pacer Check Remote December 13, 2024 9:0 0am Pacemaker check December 13, 2024 10: 56am 5 M January 02, 2025 12: 57pm Reason for Visit Admit Date Cellulitis of left lower leg October 172024 2:51pm [email or web address] wound of both lower extremities [facility] 2024 10:32am Atrial fibrillation November 29, 2024 11: 47am Essential (primary) hypertension November 042024 11:47am History of permanent cardiac pacemaker p lacement November 29, 2024 11:47am Hyperlipidemia November 29, 2024 11: 47am Nonrheumatic mitral valve insufficiency November 29, 2024 11:47am History of permanent cardiac pacemaker p lacement December 13, 2024 10:56am Sick sinus syndrome December 13, 2024 10: 56am Anxiety and depression January 02, 2025 12:57pm Dementia January 02, 2025 12: 57pm Essential (primary) hypertension December 062024 12:57pm Hypothyroidism January 02, 2025 12: 57pm Chief Complaint Admit Date 6 M FU November 29, 2024 11: 47am WOUNDS LOWER EXTREMITIES November 29 12:38pm Pacer Check Remote December 03, 2024 2:0 0am Pacer Check Remote December 13, 2024 9:0 0am Pacemaker check December 13, 2024 10: 56am 5 M January 02, 2025 12: 57pm Pacer Check Remote March 09, 2025 4:12a m Reason for Visit Admit Date Atrial fibrillation November 29, 2024 11: 47am Essential (primary) hypertension November 042024 11:47am History of permanent cardiac pacemaker p lacement November 29, 2024 11:47am Hyperlipidemia November 29, 2024 11: 47am Nonrheumatic mitral valve insufficiency November 29, 2024 11:47am History of permanent cardiac pacemaker p lacement December 13, 2024 10:56am Sick sinus syndrome December 13, 2024 10: 56am Anxiety and depression January 02, 2025 12:57pm Dementia January 02, 2025 12: 57pm Essential (primary) hypertension December 062024 12:57pm Hypothyroidism January 02, 2025 12: 57pm Chief Complaint Admit Date 6 M FU November 29, 2024 11: 47am WOUNDS LOWER EXTREMITIES November 29 12:38pm Pacer Check Remote December 03, 2024 2:0 0am Pacer Check Remote December 13, 2024 9:0 0am Pacemaker check December 13, 2024 10: 56am 5 M January 02, 2025 12: 57pm Pacer Check Remote March 09, 2025 4:12a m possible uti March 28, 2025 8:29 am Chief Complaint Admit Date Pacer Check Remote December 13, 2024 9:0 0am Pacemaker check December 13, 2024 10: 56am 5 M January 02, 2025 12: 57pm Pacer Check Remote March 09, 2025 4:12a m possible uti March 28, 2025 8:29 am Reason for Visit Admit Date History of permanent cardiac pacemaker p lacement December 13, 2024 10:56am Sick sinus syndrome December 13, 2024 10: 56am Anxiety and depression January 02, 2025 12:57pm Dementia January 02, 2025 12: 57pm Essential (primary) hypertension December 062024 12:57pm Hypothyroidism January 02, 2025 12: 57pm Dementia March 28, 2025 8:29 am Chief Complaint Admit Date 5 M January 02, 2025 12: 57pm Pacer Check Remote March 09, 2025 4:12a m possible uti March 28, 2025 8:29 am INT ORDER FOR URINE LABSPEC April 16, 2025 11:35am Reason for Visit Admit Date Anxiety and depression January 02, 2025 12:57pm Dementia January 02, 2025 12: 57pm Essential (primary) hypertension December 062024 12:57pm Hypothyroidism January 02, 2025 12: 57pm Dementia March 28, 2025 8:29 am Chief Complaint Admit Date Pacer Check Remote March 09, 2025 4:12a m possible uti March 28, 2025 8:29 am INT ORDER FOR URINE LABSPEC April 16, 2025 11:35am 5 M June 03, 2025 11:01am Pacer Check Remote June 05, 2025 2: 51am Reason for Visit Admit Date Dementia March 28, 2025 8:29 am Flu vaccine need June 03, 2025 11:01am History of UTI June 03, 2025 11:01am Anxiety and depression June 03, 2 025 11:01am Dementia with agitation June 03, 2025 11:01am Excoriation (skin-picking) disorder Sept ember 2024 11:01am Hypertension June 03, 2025 11:01am Summary Purpose Additional Source Comments Goals (unrecognized section and content) Goals may be documented in a n alternate sectionGoals may be documented in an alternate sectionGoals may be documented in an alternate sectionGoals may be documented in an alternate sectionGoals may be documented in an alternate sectionGoals may be documented in an alternate sectionGoals may be documented in an alternate sectionGoals may be documented in an alternate sectionGoals may be documented in an alternate sectionGoals may be documented in an alternate sectionGoals may be documented in an alternate sectionGoals may be documented in an alternate sectionGoals may be documented in an alternate sectionGoals may be documented in an alternate sectionGoals may be documented in an alternate sectionGoals may be documented in an alternate sectionGoals may be documented in an alternate sectionGoals may be documented in an alternate section Care Teams (unrecognized sec tion and content) Team Status: Active Member Role Status Dates Dr. Rod Ochoa MD Family Provider Active Dr. Elizabeth Cai MD Primary Care Provider Active Team Status: Inactive Member Role Status Dates Dr. Rod Ochoa MD Primary Care Provider, Referring Provider Active Dr. Curtis Ordonez MD Attending Provider Active Team Status: Active Member Role Status Dates Dr. Rod Ochoa MD Primary Care Provider Active Dr. Zion Perrin MD Emergency Provider Active Dr. Nehemias Hernandez MD Admit Provi joanna, Attending Provider, Other Provider Active Team Status: Active Member Role Status Dates Dr. Rod Ochoa MD Primary Care Provider Active Dr. Zion Perrin MD Emergency Provider Active Dr. Nehemias Hernandez MD Admit Provider, Other Pro vider Active Dr. Mina Dorman MD Attending Provider, Other Provid er Active Team Status: Inactive Member Role Status Dates Dr. Rod Ochoa MD Primary Care Provider, Referring Provider Active Dr. Elizabeth Cai MD Attending Provider Active Team Status: Inactive Member Role Status Dates Dr. Rod Ochoa MD Primary Care Provider Active Dr. Zion Perrin MD Attending Provider, Emergency Provider Active Team Status: Inactive Member Role Status Dates Dr. Rod Ochoa MD Primary Care Provider Active Dr. Zion Perrin MD Emergency Provider Active Dr. Nehemias Hernandez MD Admit Provider, Other Pro vider Active Dr. Mina Dorman MD Attending Provider Active Team Status: Inactive Member Role Status Dates Dr. Elizabeth Cai MD Primary Care P christopher, Attending Provider, Referring Provider Active Team Status: Inactive Member Role Status Dates Dr. Elizabeth Cai MD Primary Care Provider, Refer ring Provider Active Dr. Billie Ro MD Attending Provider Active Team Status: Inactive Member Role Status Dates Dr. Elizabeth Cai MD Primary Care Provider Active Dr. Billie Ro MD Attending Provider, Referring Provider Active Team Status: Inactive Member Role Status Dates Dr. Elizabeth Cai MD Primary Care Provider, Refer ring Provider Active Dr. Darien Corona MD Attending Provider Active Team Status: Inactive Member Role Status Dates Dr. Elizabeth Cai MD Primary Care Provider Active Dr. Fei Rivera MD Attending Provider Active Team Status: Inactive Member Role Status Dates Dr. Elizabeth Cai MD Primary Care Provider Active Dr. Sixto Painter MD Attending Provider, Emergency Provider Active Team Status: Inactive Member Role Status Dates Dr. Elizabeth Cai MD Primary Care Provider Active Bing Cooper Active Dr. Fei Rivera MD Attending Provider, Referring Pro vider Active Team Status: Inactive Member Role Status Dates Dr. Elizabeth Cai MD Primary Care Provider, Refer ring Provider Active Jordana Kendrick CURING ROOM WORKER, CURING ROOM WORKER-C Attending Provider Active Team Status: Inactive Member Role Status Dates Dr. Elizabeth Cai MD Primary Care Provider, Refer ring Provider Active Jomar HERNANDEZ, PA Attending Provider Active Team Status: Inactive Member Role Status Dates Dr. Elizabeth Cai MD Primary Care Provider Active Dr. Fei Rivera MD Attending Provider, Referring Pro vider Active Team Status: Active Member Role Status Dates Dr. Elizabeth Cai MD Primary Care Provider Active Dr. Fei Rivera MD Attending Provider, Referring Provider, Other Provider Active Team Status: Active Member Role Status Dates Dr. Elizabeth Cai MD Primary Care Provider, Refer ring Provider Active Bing Cooper Attending Provider Active Team Status: Active Member Role Status Dates Dr. Elizabeth Cai MD Primary Care Provider Active Dr. Callum Urrutia MD Referring Provider Active Dr. Fei Rivera MD Admit Provider, Att ending Provider, Other Provider Active Team Status: Inactive Member Role Status Dates Dr. Elizabeth Cai MD Primary Care Provider Active Dr. Callum Urrutia MD Referring Provider Active Dr. Fei Rivera MD Admit Provider, Attending Provide r Active Team Status: Inactive Member Role Status Dates Dr. Elizabeth Cai MD Primary Care Provider, Refer ring Provider Active Bing Cooper Attending Provider Active Team Status: Active Member Role Status Dates Dr. Elizabeth Cai MD Primary Care Provider Active Dr. Fei Rivera MD Admit Provider, Att ending Provider, Referring Provider, Other Provider Active Team Status: Active Member Role Status Dates Dr. Elizabeth Cai MD Primary Care Provider Active Dr. Feng Loomis DO Emergency Provider Active Miguel Angel Arreola MD Attending Provider Active Team Status: Active Member Role Status Dates Dr. Elizabeth Cai MD Primary Care Provider Active Dr. Feng Loomis DO Emergency Provider Active Dr. Edgar Lopez MD Admit Provider, Attending Provider, Other Provider Active Team Status: Active Member Role Status Dates Dr. Elizabeth Cai MD Primary Care Provider Active Dr. Feng Loomis DO Emergency Provider Active Dr. Edgar Lopez MD Admit Provider, Attending Prov ider Active Team Status: Active Member Role Status Dates Dr. Elizabeth Cai MD Primary Care Provider Active Dr. Feng Loomis DO Emergency Provider Active Dr. Edgar Lopez MD Admit Provider, Other Provider Active Dr. Liliam Barrera DO Other Provider Active Dr. Rosa Yadav MD Other Provider Active Miguel Angel Arreola MD Attending Provider Active Team Status: Active Member Role Status Dates Dr. Elizabeth Cai MD Primary Care Provider Active Dr. Feng Loomis DO Emergency Provider Active Dr. Edgar Lopez MD Admit Provider, Other Provider Active Dr. Liliam Barrera DO Attending Provider, Other Provide r Active Dr. Rosa Yadav MD Other Provider Active Team Status: Inactive Member Role Status Dates Dr. Elizabeth Cai MD Primary Care Provider Active Dr. Feng Loomis DO Emergency Provider Active Dr. Edgar Lopez MD Admit Provider, Other Provider Active Dr. Liliam Barrera DO Attending Provider Active Dr. Rosa Yadav MD Other Provider Active Team Status: Active Member Role Status Dates Dr. Elizabeth Cai MD Primary Care Provider Active Dr. Daniella Travis DO Admit Pr ovider, Attending Provider, Other Provider Active Team Status: Inactive Member Role Status Dates Dr. Elizabeth Cai MD Primary Care Provider Active Dr. Daniella Travis DO Admit Provider, Attend ing Provider Active Team Status: Inactive Member Role Status Dates Dr. Elizabeth Cai MD Primary Care Provider, Refer ring Provider Active Miguel Angel Arreola MD Attending Provider Active Team Status: Active Member Role Status Dates Dr. Elizabeth Cai MD Primary Care Provider Active Dr. Rod Ochoa MD Admit Provider, Attending Provid er Active Team Status: Active Member Role Status Dates Dr. Elizabeth Cai MD Primary Care Provider Active Dr. Rod Ochoa MD Attending Provider, Referring Pr ovider Active Team Status: Inactive Member Role Status Dates Dr. Elizabeth Cai MD Primary Care Provider Active Dr. Feng Loomsi DO Emergency Provider Active Team Status: Inactive Member Role Status Dates Dr. Elizabeth Cai MD Primary Care Provider Active Dr. Rod Ochoa MD Attending Provider, Referring Pr ovider Active Team Status: Active Member Role Status Dates Dr. Elizabeth Cai MD Primary Care Provider Active Team Status: Inactive Member Role Status Dates Dr. Elizabeth Cai MD Primary Care Provider Active Start: July 27, 2024 End: July 27, 2024 Dr. Elizabeth Cai MD Attending Provider Active Start: July 27, 2024 End: July 27, 2024 Dr. Elizabeth Cai MD Referring Provider Active Start: July 27, 2024 End: July 27, 2024 Team Status: Inactive Member Role Status Dates Dr. Elizabeth Cai MD Primary Care Provider Active Start: August 01, 2024 End: August 01, 2024 Dr. Elizabeth Cai MD Attending Provider Active Start: August 01, 2024 End: August 01, 2024 Dr. Elizabeth Cai MD Referring Provider Active Start: August 01, 2024 End: August 01, 2024 Team Status: Inactive Member Role Status Dates Dr. Elizabeth Cai MD Primary Care Provider Active Start: September 24, 2024 End: September 24, 2024 Dr. Elizabeth Cai MD Attending Provider Active Start: September 24, 2024 End: September 24, 2024 Dr. Elizabeth Cai MD Referring Provider Active Start: September 24, 2024 End: September 24, 2024 Team Status: Inactive Member Role Status Dates Dr. Elizabeth Cai MD Primary Care Provider Active Start: October 17, 2024 End: October 17, 2024 Dr. Elizabeth Cai MD Referring Provider Active Start: October 17, 2024 End: October 17, 2024 Jomar HERNANDEZ PA Attending Provider Active St art: October 17, 2024 End: October 17, 2024 Team Status: Inactive Member Role Status Dates Dr. Elizabeth Cai MD Primary Care Provider Active Start: October 26, 2024 End: October 26, 2024 Dr. Elizabeth Cai MD Referring Provider Active Start: October 26, 2024 End: October 26, 2024 MARY Guidry Attending Provider Active St art: October 26, 2024 End: October 26, 2024 Team Status: Inactive Member Role Status Dates Dr. Elizabeth Cai MD Primary Care Provider Active Start: November 07, 2024 End: November 07, 2024 Dr. Elizabeth Cai MD Referring Provider Active Start: November 07, 2024 End: November 07, 2024 Jomar HERNANDEZ PA Attending Provider Active St art: November 07, 2024 End: November 07, 2024 Team Status: Inactive Member Role Status Dates Dr. Elizabeth Cai MD Primary Care Provider Active Start: November 07, 2024 End: November 07, 2024 Dr. Elizabeth Cai MD Attending Provider Active Start: November 07, 2024 End: November 07, 2024 Dr. Elizabeth Cai MD Referring Provider Active Start: November 07, 2024 End: November 07, 2024 Team Status: Inactive Member Role Status Dates Dr. Elizabeth Cai MD Primary Care Provider Active Start: November 29, 2024 End: November 29, 2024 Dr. Elizabeth Cai MD Referring Provider Active Start: November 29, 2024 End: November 29, 2024 Funmilayo HERNANDEZ PA Attending Provider Active Start: November 29, 2024 End: November 29, 2024 Team Status: Inactive Member Role Status Dates Dr. Elizabeth Cai MD Primary Care Provider Active Start: November 29, 2024 End: November 29, 2024 MARY Guidry Attending Provider Active St art: November 29, 2024 End: November 29, 2024 MARY Guidry Referring Provider Active St art: November 29, 2024 End: November 29, 2024 Team Status: Active Member Role Status Dates Dr. Elizabeth Cai MD Primary Care Provider Active Start: November 29, 2024 Dr. Aidan Rollins MD Attending Provider Active S tart: November 29, 2024 Team Status: Active Member Role Status Dates Dr. Elizabeth Cai MD Primary Care Provider Active Start: November 29, 2024 Dr. Aidan Rollins MD Attending Provider Active S tart: November 29, 2024 MARY Guidry Referring Provider Active St art: November 29, 2024 Team Status: Inactive Member Role Status Dates Dr. Elizabeth Cai MD Primary Care Provider Active Start: December 03, 2024 End: December 03, 2024 Dr. Fei Rivera MD Attending Provider Active S tart: December 03, 2024 End: December 03, 2024 Team Status: Inactive Member Role Status Dates Dr. Elizabeth Cai MD Primary Care Provider Active Start: December 13, 2024 End: December 13, 2024 Dr. Fei Rivera MD Attending Provider Active S tart: December 13, 2024 End: December 13, 2024 Team Status: Inactive Member Role Status Dates Dr. Elizabeth Cai MD Primary Care Provider Active Start: December 13, 2024 End: December 13, 2024 Dr. Fei Rivera MD Attending Provider Active S tart: December 13, 2024 End: December 13, 2024 Dr. Fei Rivera MD Referring Provider Active S tart: December 13, 2024 End: December 13, 2024 Team Status: Inactive Member Role Status Dates Dr. Elizabeth Cai MD Primary Care Provider Active Start: January 02, 2025 End: January 02, 2025 Dr. Elizabeth Cai MD Attending Provider Active Start: January 02, 2025 End: January 02, 2025 Dr. Elizabeth Cai MD Referring Provider Active Start: January 02, 2025 End: January 02, 2025 Team Status: Active Member Role/Relationship Status Dates Dr. Elizabeth Cai MD Primary Care Provider Active Team Status: Inactive Member Role/Relationship Status Dates Dr. Elizabeth Cai MD Primary Care Provider Active Start: November 29, 2024 End: November 29, 2024 Dr. Elizabeth Cai MD Referring Provider Active Start: November 29, 2024 End: November 29, 2024 Funmilayo HERNANDEZ PA Attending Provider Active Start: November 29, 2024 End: November 29, 2024 Team Status: Inactive Member Role/Relationship Status Dates Dr. Elizabeth Cai MD Primary Care Provider Active Start: November 29, 2024 End: November 29, 2024 Jomar HERNANDEZ PA Attending Provider Active St art: November 29, 2024 End: November 29, 2024 Jomar HERNANDEZ PA Referring Provider Active St art: November 29, 2024 End: November 29, 2024 Team Status: Active Member Role/Relationship Status Dates Dr. Elizabeth Cai MD Primary Care Provider Active Start: November 29, 2024 Dr. Aidan Rollins MD Attending Provider Active S tart: November 29, 2024 MARY Guidry Referring Provider Active St art: November 29, 2024 Team Status: Inactive Member Role/Relationship Status Dates Dr. Elizabeth Cai MD Primary Care Provider Active Start: December 03, 2024 End: December 03, 2024 Dr. Fei Rivera MD Attending Provider Active S tart: December 03, 2024 End: December 03, 2024 Team Status: Inactive Member Role/Relationship Status Dates Dr. Elizabeth Cai MD Primary Care Provider Active Start: December 13, 2024 End: December 13, 2024 Dr. Fei Rivera MD Attending Provider Active S tart: December 13, 2024 End: December 13, 2024 Team Status: Inactive Member Role/Relationship Status Dates Dr. Elizabeth Cai MD Primary Care Provider Active Start: December 13, 2024 End: December 13, 2024 Dr. Fei Rivera MD Attending Provider Active S tart: December 13, 2024 End: December 13, 2024 Dr. Fei Rivera MD Referring Provider Active S tart: December 13, 2024 End: December 13, 2024 Team Status: Inactive Member Role/Relationship Status Dates Dr. Elizabeth Cai MD Primary Care Provider Active Start: January 02, 2025 End: January 02, 2025 Dr. Elizabeth Cai MD Attending Provider Active Start: January 02, 2025 End: January 02, 2025 Dr. Elizabeth Cai MD Referring Provider Active Start: January 02, 2025 End: January 02, 2025 Team Status: Inactive Member Role/Relationship Status Dates Dr. Elizabeth Cai MD Primary Care Provider Active Start: January 02, 2025 End: January 02, 2025 Dr. Elizabeth Cai MD Attending Provider Active Start: January 02, 2025 End: January 02, 2025 Dr. Elizabeth Cai MD Referring Provider Active Start: January 02, 2025 End: January 02, 2025 Team Status: Inactive Member Role/Relationship Status Dates Dr. Elizabeth Cai MD Primary Care Provider Active Start: March 09, 2025 End: March 09, 2025 Dr. Fei Rivera MD Attending Provider Active S tart: March 09, 2025 End: March 09, 2025 Team Status: Inactive Member Role/Relationship Status Dates Dr. Elizabeth Cai MD Primary Care Provider Active Start: March 28, 2025 End: March 28, 2025 Dr. Elizabeth Cai MD Referring Provider Active Start: March 28, 2025 End: March 28, 2025 ELIJAH Ann Attending Provider Active Start: March 28, 2025 End: March 28, 2025 Team Status: Inactive Member Role/Relationship Status Dates Dr. Elizabeth Cai MD Primary Care Provider Active Start: December 13, 2024 End: December 13, 2024 Dr. Fei Rivera MD Attending Provider Active S tart: December 13, 2024 End: December 13, 2024 Team Status: Inactive Member Role/Relationship Status Dates Dr. Elizabeth Cai MD Primary Care Provider Active Start: December 13, 2024 End: December 13, 2024 Dr. Fei Rivera MD Attending Provider Active S tart: December 13, 2024 End: December 13, 2024 Dr. Fei Rivera MD Referring Provider Active S tart: December 13, 2024 End: December 13, 2024 Team Status: Inactive Member Role/Relationship Status Dates Dr. Elizabeth Cai MD Primary Care Provider Active Start: January 02, 2025 End: January 02, 2025 Dr. Elizabeth Cai MD Attending Provider Active Start: January 02, 2025 End: January 02, 2025 Dr. Elizabeth Cai MD Referring Provider Active Start: January 02, 2025 End: January 02, 2025 Team Status: Inactive Member Role/Relationship Status Dates Dr. Elizabeth Cai MD Primary Care Provider Active Start: January 02, 2025 End: January 02, 2025 Dr. Elizabeth Cai MD Attending Provider Active Start: January 02, 2025 End: January 02, 2025 Dr. Elizabeth Cai MD Referring Provider Active Start: January 02, 2025 End: January 02, 2025 Team Status: Inactive Member Role/Relationship Status Dates Dr. Elizabeth Cai MD Primary Care Provider Active Start: March 09, 2025 End: March 09, 2025 Dr. Fei Rivera MD Attending Provider Active S tart: March 09, 2025 End: March 09, 2025 Dr. Fei Rivera MD Referring Provider Active S tart: March 09, 2025 End: March 09, 2025 Team Status: Inactive Member Role/Relationship Status Dates Dr. Elizabeth Cai MD Primary Care Provider Active Start: March 28, 2025 End: March 28, 2025 Dr. Elizabeth Cai MD Referring Provider Active Start: March 28, 2025 End: March 28, 2025 ELIJAH Ann Attending Provider Active Start: March 28, 2025 End: March 28, 2025 Team Status: Inactive Member Role/Relationship Status Dates Dr. Elizabeth Cai MD Primary Care Provider Active Start: March 28, 2025 End: March 28, 2025 Capri Vail CURING ROOM WORKER-C Attending Provider Active Start: March 28, 2025 End: March 28, 2025 [place] [employer]ING ROOM WORKER-C Referring Provider Active Start: March 28, 2025 End: March 28, 2025 Team Status: Inactive Member Role/Relationship Status Dates Dr. Elizabeth Cai MD Primary Care Provider Active Start: January 02, 2025 End: January 02, 2025 Dr. Elizabeth Cai MD Attending Provider Active Start: January 02, 2025 End: January 02, 2025 Dr. Elizabeth Cai MD Referring Provider Active Start: January 02, 2025 End: January 02, 2025 Team Status: Inactive Member Role/Relationship Status Dates Dr. Elizabeth Cai MD Primary Care Provider Active Start: January 02, 2025 End: January 02, 2025 Dr. Elizabeth Cai MD Attending Provider Active Start: January 02, 2025 End: January 02, 2025 Dr. Elizabeth Cai MD Referring Provider Active Start: January 02, 2025 End: January 02, 2025 Team Status: Inactive Member Role/Relationship Status Dates Dr. Elizabeth Cai MD Primary Care Provider Active Start: March 09, 2025 End: March 09, 2025 Dr. Fei Rivera MD Attending Provider Active S tart: March 09, 2025 End: March 09, 2025 Dr. Fei Rivera MD Referring Provider Active S tart: March 09, 2025 End: March 09, 2025 Team Status: Inactive Member Role/Relationship Status Dates Dr. Elizabeth Cai MD Primary Care Provider Active Start: March 28, 2025 End: March 28, 2025 Dr. Elizabeth Cai MD Referring Provider Active Start: March 28, 2025 End: March 28, 2025 [place] [place] CURING ROOM WORKER-C Attending Provider Active Start: March 28, 2025 End: March 28, 2025 Team Status: Inactive Member Role/Relationship Status Dates Dr. Elizabeth Cai MD Primary Care Provider Active Start: March 28, 2025 End: March 28, 2025 Capri Ungerer , CURING ROOM WORKER-C Attending Provider Active Start: March 28, 2025 End: March 28, 2025 Capri Ungerer , CURING ROOM WORKER-C Referring Provider Active Start: March 28, 2025 End: March 28, 2025 Team Status: Inactive Member Role/Relationship Status Dates Dr. Elizabeth Cai MD Primary Care Provider Active Start: April 16, 2025 End: April 16, 2025 Capri Ungerer , CURING ROOM WORKER-C Attending Provider Active Start: April 16, 2025 End: April 16, 2025 Capri Ungerer , CURING ROOM WORKER-C Referring Provider Active Start: April 16, 2025 End: April 16, 2025 Team Status: Active Member Role/Relationship Status Dates Dr. Elizabeth Cai MD Primary care physician Activ e Team Status: Inactive Member Role/Relationship Status Dates Dr. Elizabeth Cai MD Primary care physician Activ e Start: March 09, 2025 End: March 09, 2025 Dr. Fei Rivera MD Attending physician Active Start: March 09, 2025 End: March 09, 2025 Dr. Fei Rivera MD Referring Provider Active S tart: March 09, 2025 End: March 09, 2025 Team Status: Inactive Member Role/Relationship Status Dates Dr. Elizabeth Cai MD Primary care physician Activ e Start: March 28, 2025 End: March 28, 2025 Dr. Elizabeth Cai MD Referring Provider Active Start: March 28, 2025 End: March 28, 2025 Capri Vail CURING ROOM WORKER-C Attending physician Active Start: March 28, 2025 End: March 28, 2025 Team Status: Inactive Member Role/Relationship Status Dates Dr. Elizabeth Cai MD Primary care physician Activ e Start: March 28, 2025 End: March 28, 2025 Capri [place] , CURING ROOM WORKER-C Attending physician Active Start: March 28, 2025 End: March 28, 2025 Capri Ungerer , CURING ROOM WORKER-C Referring Provider Active Start: March 28, 2025 End: March 28, 2025 Team Status: Inactive Member Role/Relationship Status Dates Dr. Elizabeth Cai MD Primary care physician Activ e Start: April 16, 2025 End: April 16, 2025 ELIJAH Ann Attending physician Active Start: April 16, 2025 End: April 16, 2025 ELIJAH Ann Referring Provider Active Start: April 16, 2025 End: April 16, 2025 Team Status: Inactive Member Role/Relationship Status Dates Dr. Elizabeth Cai MD Primary care physician Activ e Start: June 03, 2025 End: June 03, 2025 Dr. Elizabeth Cai MD Attending physician Active Start: June 03, 2025 End: June 03, 2025 Dr. Elizabeth Cai MD Referring Provider Active Start: June 03, 2025 End: June 03, 2025 Team Status: Active Member Role/Relationship Status Dates Dr. Elizabeth Cai MD Primary care physician Activ e Start: June 05, 2025 Dr. Fei Rivera MD Attending physician Active Start: June 05, 2025 Team Status: Inactive Member Role/Relationship Status Dates Dr. Elizabeth Cai MD Primary care physician Activ e Start: June 05, 2025 End: June 05, 2025 Dr. Fie Rivera MD Attending physician Active Start: June 05, 2025 End: June 05, 2025 INFORMATION SOURCE (unrecogn ized section and content) DATE CREATED AUTHOR 07/16/2025 [facility] FOR RECORDS PERTAINING TO PATIENTS WHO ARE OR HAVE BEEN ENROLLED IN A CHEMICAL DEPENDENCY/SUBSTANCEABUSE PROGRAM, SOME INFORMATION MAY BE OMITTED. This clinical summary was aggregated from multiple sources. Caution should be exercised in using it in the provision of clinical care. This summary normalizes information from multiple sources, and as a consequence, information in this document may materially change the coding, format and clinical context of patient data. In addition, data may be omitted in some cases. CLINICAL DECISIONS SHOULD BE BASED ON THE PRIMARY CLINICAL RECORDS. [employer] provides no warranty or guarantee of the accuracy or completeness of information in this document.
--- NOTE | 2025-07-28 18:17 | EKG12_ITS ---
Test Reason : sob/cp Blood Pressure : */* mmHG Vent. Rate : 81 BPM Atrial Rate : 81 BPM P-R Int : 166 ms QRS Dur : 100 ms QT Int : 394 ms P-R-T Axes : 96 45 230 degrees QTcB Int : 457 ms Sinus rhythm with marked sinus arrhythmia with frequent ventricular-paced complexes and Premature supraventricular complexes Abnormal ECG Confirmed by DEMARCO RUCKER, DARLENE ([id number]), purchase request editor BRANDON POLLACK ([id number]) on 07/29/2025 1:04:00 PM Referred By: Ruby Confirmed By: DARLENE PAL MD
[2025-07-28 18:18] LABS: Hematocrit 35.2 % (37-47); Hemoglobin 11.6 g/dL (12.0-15.0); Immature Granulocytes Count 0.060 X10^3/uL (0.0-0.0); Mean Corp Hgb Conc 33.0 g/dL (32-36); Mean Corpuscular Volume 93.9 fL (81-99); Mean Platelet Vol. 9.9 fl (6.2-12.0); NRBC Flagged by Analyzer 0 % (0-5); Platelet Count 235 K/mm3 (150-450); RBC Distribution Width CV 13.9 % (11.6-14.6); RBC Distribution Width SD 47.5 fl (35.1-43.9); Red Blood Count 3.75 M/mm3 (4.2-5.4); White Blood Count 7.8 K/mm3 (4.4-11.0)
[2025-07-28 18:34] LABS: Pro- Brain NATRIURETIC PEPTIDE 2896 pg/mL (<=1800)
[2025-07-28 18:40] LABS: Anion Gap 11 (5-15); BUN 9 mg/dL (4-19); BUN/Creat Ratio 11.7 RATIO (10-20); Calcium,Total 9.1 mg/dL (7.6-11.0); Carbon Dioxide 27.1 mmol/L (21.0-32.0); Chloride 94 mmol/L (98-108); Glucose 92 mg/dL (70-99); Potassium 4.3 mmol/L (3.3-5.1); Troponin T High Sensitivity 22 ng/L (<=14)
--- NOTE | 2025-07-28 19:37 | CT_ITS ---
PROCEDURE: CT CHEST, ABD, PEL W/CONTRAST 07/28/2025 REASON FOR EXAM: LEFT CHEST FLANK TRAUMA TECHNIQUE: Chest, abdomen and pelvis CT with intravenous contrast. Coronal and Sagittal reconstruction series were provided. One or more dose reduction techniques were used (e.g., Automated exposure control, adjustment of the mA and/or kV according to patient size, use of iterative reconstruction technique. PATIENT PREPARATION: Per protocol ORAL CONTRAST TYPE: None. AMOUNT: mL CONTRAST: Isovue 370 VOLUME: 97mL RADIATION DOSE SUMMARY: CTDlvol: 22+ 16+ 21 mGy DLP: 1600 mGycm FINDINGS: CT CHEST: The peripheral soft tissues unremarkable. Mild bending of the right posterior 12th, 11th, 10th, and 9th ribs which may represent acute nondisplaced fractures are chronic healing fractures. Correlate with point tenderness. Degenerative changes of the spine. Diffuse osseous demineralization. [id number] atherosclerosis of a normal caliber thoracic aorta. No mediastinal lymphadenopathy. The heart is enlarged. Small pericardial effusion measuring up to 5 mm in thickness. Small bilateral pleural effusions. The 1 on the right has irregular angles and may represent loculation. CT ABDOMEN/PELVIS: The peripheral soft tissues unremarkable. Degenerative changes of the spine. Right hip arthroplasty. Left femoral internal fixation. Diffuse osseous demineralization. [id number] atherosclerosis. Normal caliber abdominal aorta. The liver is unremarkable. The gallbladder, pancreas, and spleen are unremarkable. Symmetric enhancement of the bilateral kidneys in the corticomedullary phase. Left kidney simple cysts. No hydronephrosis. The urinary bladder is unremarkable. Colonic diverticulosis without surrounding inflammatory changes. Normal caliber large and small bowel. The stomach is unremarkable. CT/CT Chest, Abd, Pel w/Contrast IMPRESSION: Mild bending of the right posterior ninth through twelfth ribs, which may repre sent acute nondisplaced fractures versus chronic healing fractures; correlation with point tenderness is recommended. Cardiomegaly with a small pericardial effusion measuring up to 5 mm. Small bilateral pleural effusions; the right effusion has irregular margins belkys t may suggest loculation. Diffuse osseous demineralization. [id number] atherosclerosis without aneurysm. Colonic diverticulosis without evidence of diverticulitis. Left renal simple cysts. No solid-organ injury identified in the abdomen or pelvis. Reading Location: [address]
[2025-07-28 21:01] LABS: Mucous, Urine 0 SEEN /hpf (<or=2+); Red Blood Cells-Urine 0 SEEN /hpf (0-5)
[2025-07-28 21:02] LABS: Color, Urine Yellow (Yellow); Glucose, Dipstick Normal (Normal); Ketone-Dipstick Negative (Negative); Leukocyte Esterase-Dipstick 25 /ul (Negative); Nitrite-Dipstick Negative (Negative); Occult Blood-Urine Negative /ul (Negative); Protein-Dipstick 30 mg/dl (Negative); Specific Gravity, Urine 1.010 (1.002-1.030); Urine Bilirubin Dipstick Negative (Negative)
[2025-07-28 21:13] LABS: Troponin T High Sens 2 HR 25 ng/L (<=14)
[2025-07-28 21:14] LABS: Squamous Epithelial Cells - UA 0-5 SEEN /hpf (5-10)
== END 2025-07-28 22:36 | disposition home or self-care (01) ==
PROVIDERS: Emergency Provider Emergency Medicine; PCP Internal Medicine; Visit Provider Emergency Medicine
DX: I11.0 Hypertensive heart disease with heart failure (principal); M06.9 Rheumatoid arthritis, unspecified; I50.9 Heart failure, unspecified; F03.94 Unspecified dementia, unspecified severity, with anxiety; F03.93 Unspecified dementia, unspecified severity, with mood disturbance; I49.5 Sick sinus syndrome; I48.91 Unspecified atrial fibrillation; R06.00 Dyspnea, unspecified; Z95.0 Presence of cardiac pacemaker; J90 Pleural effusion, not elsewhere classified; I34.0 Nonrheumatic mitral (valve) insufficiency; D50.9 Iron deficiency anemia, unspecified; E03.9 Hypothyroidism, unspecified; Z87.19 Personal history of other diseases of the digestive system; Z86.73 Personal history of transient ischemic attack (TIA), and cerebral infarction without residual deficits; Z79.01 Long term (current) use of anticoagulants; Z79.890 Hormone replacement therapy; Z79.82 Long term (current) use of aspirin; Z79.899 Other long term (current) drug therapy
CPT/HCPCS: 71260; 74177; 80048; 81001; 83880; 84484; 85025; 93005; 94760; 99283; Q9967